=== PATIENT | male | born 1955 | race Caucasian/White ===

== ENCOUNTER → 2016-12-13 | Day surgery (SDC) | payer MEDICARE, OTHER ==
[~2016-12-13] VITALS: Ht 175.3 cm; Wt 83.9 kg
[~2016-12-13] MED LIST: /PANT40TA PO; ACETAMINOPHEN 325 MG TAB PO PRN; ASPI81CH PO; ASPI81TA85 PO; ATOR1TAB21 PO; AcetaZOLAMIDE 500 MG ER CAP PO ONE; BACT800T5 PO; BENA25CA PO; BISA5TAB64 PO; BSS with VANC/TOB/EPI for EYE CASES IR ONE; CIPR250T3 PO; CIPR25SS OR; COLA100C PO; COLA100C2 OR; COLL500C PO; EPOG1000 SQ; FLAG500T OR; HEALON DUET (HEALON 10MG/ML 0.55ML & HEALON ENDOCOAT 30MG/ML 0.85ML) As Ordered ONE; HEALON DUET (HEALON 10MG/ML 0.55ML & HEALON ENDOCOAT 30MG/ML 0.85ML) XX ONE; KEFL500C7 PO; KETOROLAC 0.5% OPHTH SOLN OD ONE; LEVO200T3 PO; LEVO200T4 PO; LEVO25TA5 PO; LIDOCAINE 1% SDV 5 ML VIAL As Ordered ONE; LIDOCAINE 1% SDV 5 ML VIAL XX ONE; LIDOCAINE 4% INJ 5 ML AMP OU ONE; LIDOCAINE W/EPINEPHRINE 1% 20ML VIAL XX ONE; LOSA100T36 PO; LOSA50TA20 PO; METAPKT PO; METR500T10 PO; MIDAZOLAM INJ 2 MG/2 ML VIAL (J2250) As Ordered ONE; MIDO2.5T PO; MOXIFLOXACIN IN BSS 0.25MG/0.25ML INTRACAMERAL INJ (OR EYE ONLY)(J2280) As Ordered ONE; MOXIFLOXACIN IN BSS 0.25MG/0.25ML INTRACAMERAL INJ (OR EYE ONLY)(J2280) ICAM ONE; MULTIVIT PO; Multivitamin PO; NEPRLIQ3 PO; NEUR100C PO; NORV5TAB; NORV5TAB PO; OFLOXACIN 0.3 % (OCUFLOX) OPTH SOL 5ML OD ONE; PERC7.5T3 PO; PERC7.5T8; PERCOCET PO; PHENYLEPHRINE 2.5% OPHTH SOL 2ML OD ONE; POVIDONE-IODINE 5% OPHTH PREP SOL 30ML As Ordered ONE; PRAV40TA2 PO; PREVASTATIN; PROPARACAINE 0.5% OPHTH SOL 15ML OD PRN; PROVASTATIN PO; RENA800T; RENA800T PO; RENV0.8P PO; RENV2.4P PO; REST30CA OR; REST30CA PO; SENO8.6T10 PO; SENSIPAR; SENSIPAR PO; SPS15SUS2 PO; Sensipar PO; TAGA200T PO; TRIAMCINOLONE PRES FR 40 MG/ML 1ML(TRIESENCE)(OR EYE ONLY)(J3300 PER 1MG) As Ordered ONE; TRIAMCINOLONE PRES FR 40 MG/ML 1ML(TRIESENCE)(OR EYE ONLY)(J3300 PER 1MG) IO ONE; TRIMETHOBENZAMIDE 300 MG CAP PO PRN; TROPICAMIDE 1% OPHTH SOLN 2 ML OD ONE; TYLE325T5 PO; VICO5TAB; VICO5TAB OR; VITA100037 PO; VITA100041 PO; VITA500C24 PO; VITA500T; VITA500T PO; VITA500T88 PO; VITAMIN D PO; ZANT150T; ZANT150T OR; [UNRECOGNIZED DRUG - OTHER] IV; epogen IV; fentaNYL 100 MCG/2 ML INJECTION (J3010) As Ordered ONE; iron IV; zemplar IV
[2016-12-13 09:35] VITALS: BP 146/74
== END | disposition home or self-care (01) ==
LOC: M SDC 07:47
PROVIDERS: ATTEND Ophthalmology
DX: H26.9 Unspecified cataract (principal); D63.1 Anemia in chronic kidney disease; I12.0 Hypertensive chronic kidney disease with stage 5 chronic kidney disease or end stage renal disease; N18.6 End stage renal disease; N03.9 Chronic nephritic syndrome with unspecified morphologic changes; E21.3 Hyperparathyroidism, unspecified; K21.9 Gastro-esophageal reflux disease without esophagitis; C02.9 Malignant neoplasm of tongue, unspecified; C73 Malignant neoplasm of thyroid gland; E03.9 Hypothyroidism, unspecified; T88.4XXD Failed or difficult intubation, subsequent encounter; E78.00 Pure hypercholesterolemia, unspecified; I34.1 Nonrheumatic mitral (valve) prolapse; G89.29 Other chronic pain; M12.9 Arthropathy, unspecified; M54.9 Dorsalgia, unspecified; Z88.8 Allergy status to other drugs, medicaments and biological substances; Z79.899 Other long term (current) drug therapy; Z94.0 Kidney transplant status; Z96.643 Presence of artificial hip joint, bilateral; Z92.21 Personal history of antineoplastic chemotherapy
CPT/HCPCS: 36415; 66984; 84132; J2250; J2280; J3010; J3300; V2632

== ENCOUNTER → 2017-01-01 | Day surgery (SDC) | payer MEDICARE, OTHER ==
[~2017-01-01] VITALS: Ht 175.3 cm; Wt 83.5 kg
[~2017-01-01] MED LIST changes: +ACETYLCHOLINE OPHTH SOLN 1% 2ML XX ONE; +BALANCED SALT IRRIGATION SOL 500ML GLASS BOTTLE (FOR OR EYE COMPOUND) IR ONE; +CYCLOPENTOLATE 2% OPHTH SOLN XX ONE; +D5W/0.2% SODIUM CHLORIDE 250 ML IV SCH; +EPINEPHrine INJ 1 MG/ML 1ML VIAL/AMP IR ONE; +FLORCAP6 PO; -KETOROLAC 0.5% OPHTH SOLN OD ONE; +KETOROLAC 0.5% OPHTH SOLN OS ONE; -LIDOCAINE W/EPINEPHRINE 1% 20ML VIAL XX ONE; -OFLOXACIN 0.3 % (OCUFLOX) OPTH SOL 5ML OD ONE; +OFLOXACIN 0.3 % (OCUFLOX) OPTH SOL 5ML XX ONE; -PHENYLEPHRINE 2.5% OPHTH SOL 2ML OD ONE; +PHENYLEPHRINE 2.5% OPHTH SOL 2ML XX ONE; -PROPARACAINE 0.5% OPHTH SOL 15ML OD PRN; +PROPARACAINE 0.5% OPHTH SOL 15ML OS PRN; +TOBRAMYCIN INJ 80 MG/2 ML VIAL (J3260) XX ONE; -TROPICAMIDE 1% OPHTH SOLN 2 ML OD ONE; +TROPICAMIDE 1% OPHTH SOLN 2 ML XX ONE; +VANCOMYCIN 1000 MG/20 ML VIAL (J3370) XX ONE
[2017-01-01 11:00] VITALS: BP 164/74
== END | disposition home or self-care (01) ==
LOC: M SDC 08:14
PROVIDERS: ATTEND Ophthalmology
DX: H26.9 Unspecified cataract (principal); D63.1 Anemia in chronic kidney disease; I12.0 Hypertensive chronic kidney disease with stage 5 chronic kidney disease or end stage renal disease; N18.6 End stage renal disease; N03.2 Chronic nephritic syndrome with diffuse membranous glomerulonephritis; T86.11 Kidney transplant rejection; E03.9 Hypothyroidism, unspecified; K21.9 Gastro-esophageal reflux disease without esophagitis; E21.3 Hyperparathyroidism, unspecified; Z94.0 Kidney transplant status; Z99.2 Dependence on renal dialysis; Z85.828 Personal history of other malignant neoplasm of skin; Z92.21 Personal history of antineoplastic chemotherapy; Z85.850 Personal history of malignant neoplasm of thyroid
CPT/HCPCS: 36415; 66984; 84132; J2250; J2280; J3010; J3260; J3300; J3370; V2632

== ENCOUNTER → 2017-04-10 | Outpatient (CLI) | payer MEDICARE, OTHER ==
[~2017-04-10] MED LIST changes: -ACETAMINOPHEN 325 MG TAB PO PRN; -ACETYLCHOLINE OPHTH SOLN 1% 2ML XX ONE; -AcetaZOLAMIDE 500 MG ER CAP PO ONE; -BALANCED SALT IRRIGATION SOL 500ML GLASS BOTTLE (FOR OR EYE COMPOUND) IR ONE; -BSS with VANC/TOB/EPI for EYE CASES IR ONE; -COLA100C PO; +COLA100C3 PO; -CYCLOPENTOLATE 2% OPHTH SOLN XX ONE; -D5W/0.2% SODIUM CHLORIDE 250 ML IV SCH; -EPINEPHrine INJ 1 MG/ML 1ML VIAL/AMP IR ONE; -HEALON DUET (HEALON 10MG/ML 0.55ML & HEALON ENDOCOAT 30MG/ML 0.85ML) As Ordered ONE; -HEALON DUET (HEALON 10MG/ML 0.55ML & HEALON ENDOCOAT 30MG/ML 0.85ML) XX ONE; -KETOROLAC 0.5% OPHTH SOLN OS ONE; -LIDOCAINE 1% SDV 5 ML VIAL As Ordered ONE; -LIDOCAINE 1% SDV 5 ML VIAL XX ONE; -LIDOCAINE 4% INJ 5 ML AMP OU ONE; -MIDAZOLAM INJ 2 MG/2 ML VIAL (J2250) As Ordered ONE; -MOXIFLOXACIN IN BSS 0.25MG/0.25ML INTRACAMERAL INJ (OR EYE ONLY)(J2280) As Ordered ONE; -MOXIFLOXACIN IN BSS 0.25MG/0.25ML INTRACAMERAL INJ (OR EYE ONLY)(J2280) ICAM ONE; -OFLOXACIN 0.3 % (OCUFLOX) OPTH SOL 5ML XX ONE; -PHENYLEPHRINE 2.5% OPHTH SOL 2ML XX ONE; -POVIDONE-IODINE 5% OPHTH PREP SOL 30ML As Ordered ONE; -PROPARACAINE 0.5% OPHTH SOL 15ML OS PRN; -TOBRAMYCIN INJ 80 MG/2 ML VIAL (J3260) XX ONE; -TRIAMCINOLONE PRES FR 40 MG/ML 1ML(TRIESENCE)(OR EYE ONLY)(J3300 PER 1MG) As Ordered ONE; -TRIAMCINOLONE PRES FR 40 MG/ML 1ML(TRIESENCE)(OR EYE ONLY)(J3300 PER 1MG) IO ONE; -TRIMETHOBENZAMIDE 300 MG CAP PO PRN; -TROPICAMIDE 1% OPHTH SOLN 2 ML XX ONE; -VANCOMYCIN 1000 MG/20 ML VIAL (J3370) XX ONE; -fentaNYL 100 MCG/2 ML INJECTION (J3010) As Ordered ONE
--- NOTE | 2017-04-10 12:10 | REP ---
CHEST, TWO VIEWS: Two views of the chest are performed and compared t o a prior study of 06/16/2014. There is cardiomegaly. There is vascular congestion. . Small bilateral effusions and some minor bibasilar atelectasis/infiltrate are noted. There is calcification of the thoracic aorta. Nodular opacities in the right apex have been seen on multiple prior exams. There are degenerative changes of the spine. Mild compression deformity of a few mid to lower thoracic vertebral bodies are stable. IMPRESSION: Cardiomegaly and vascular congestion with increased interstitial markings suggests congestive heart failure and interstitial edema. In addition, there are mild patchy densities in each lung base representing mild atelectasis/infiltrate. There are small effusions. Signed by Tim Person MD 04/10/2017 12:54 P
== END ==
LOC: M SMT 10:26
PROVIDERS: ATTEND Internal Medicine Nephrology
DX: R91.8 Other nonspecific abnormal finding of lung field (principal); I51.7 Cardiomegaly; J90 Pleural effusion, not elsewhere classified

== ENCOUNTER → 2017-05-03 | Outpatient (CLI) | payer MEDICARE, OTHER ==
[~2017-05-03] MED LIST changes: -COLA100C3 PO; +COLA100C5 PO; +KEFL500C17 PO; -KEFL500C7 PO; +PERC7.5T11 PO; -PERC7.5T3 PO; -VITA100037 PO; +VITA100067 PO
--- NOTE | 2017-05-03 11:52 | REP ---
Clinical: Heart failure. Technique: PA and lateral. Comparison: 04/10/2017. Findings: Mediastinum and cardiac silhouette are stable. Lung [place] demonstrate diffuse chronic interstitial changes and fibrosis/scarring similar to prior examination. Previously noted left lower lobe infiltrate has resolved. No obvious, new, acute infiltrate is appreciated. No effusion. No pneumothorax. Skeletal structures stable. Impression: 1. Diffuse chronic interstitial changes with fibrosis and scarring as well as suspected right apical pleural plaquing. 2. Previously noted left lower lobe infiltrate resolved. Signed by Marcos Delacruz MD 05/03/2017 11:43 A
== END ==
LOC: M SMT 10:44
PROVIDERS: ATTEND Internal Medicine Nephrology
DX: I50.9 Heart failure, unspecified (principal)

== ENCOUNTER → 2017-07-13 | Outpatient (CLI) | payer MEDICARE, OTHER ==
[~2017-07-13] MED LIST changes: +CYCL10TA PO; +PRAV10TA4 PO; +WHEEMIS3 XX
--- NOTE | 2017-07-13 11:49 | REP ---
Clinical: Cough. Technique: PA and lateral. Comparison: 05/03/2017. Findings: Mediastinum and cardiac silhouette are stable with mild cardiomegaly and findings to suggest calcified lymph nodes along with atherosclerotic changes to the aorta. Chronic changes are appreciated with superimposed bibasilar infiltrate/atelectasis and moderate pleural effusions. Skeletal structures are stable. Impression: Superimposed bibasilar infiltrate/atelectasis and moderate pleural effusions. Cannot exclude interstitial edema versus multifocal pneumonia. Signed by Marcos Delacruz MD 07/13/2017 11:41 A
== END ==
LOC: M SMT 10:33
PROVIDERS: ATTEND Internal Medicine Nephrology
DX: J90 Pleural effusion, not elsewhere classified (principal)

== ENCOUNTER → 2017-08-24 | Outpatient (CLI) | payer MEDICARE, OTHER ==
[2017-08-24 14:02] LABS: MEAN CORPUSCULAR HEMOGLOBIN 31.3 pg (27.0-33.0); MEAN CORPUSCULAR HGB CONC 31.4 g/dl (32.0-36.5); MEAN CORPUSCULAR VOLUME 99.7 fl (80.0-96.0); PLATELET COUNT, AUTOMATED 281 10^3/uL (150-450); RED CELL DISTRIBUTION WIDTH 16.3 % (11.5-14.5); WHITE BLOOD COUNT 5.2 10^3/uL (4.0-10.0)
== END ==
LOC: M SMT 11:19
PROVIDERS: ATTEND Internal Medicine Cardiovascular Disease
DX: I25.10 Atherosclerotic heart disease of native coronary artery without angina pectoris (principal); R94.39 Abnormal result of other cardiovascular function study

== ENCOUNTER 2017-09-13 09:35 | Emergency (ER) | payer MEDICARE, OTHER ==
[~2017-09-13] VITALS: Ht 172.7 cm; Wt 74.1 kg
[~2017-09-13 09:35] MED LIST changes: -CYCL10TA PO; -PRAV10TA4 PO; -WHEEMIS3 XX
[2017-09-13] MEDS ORDERED: PRAV10TA4 PO (09:49)
[2017-09-13 10:40] LABS: BASO % 0.2 % (0.0-1.0); EOS # 0.1 10^3/uL (0.0-0.50); EOS % 0.8 % (0.0-3.0); IMMATURE GRANULOCYTE % 0.5 % (0-0); LYMPH % 3.5 % (24.0-44.0); MEAN CORPUSCULAR HEMOGLOBIN 30.8 pg (27.0-33.0); MEAN CORPUSCULAR HGB CONC 31.2 g/dl (32.0-36.5); MEAN CORPUSCULAR VOLUME 98.5 fl (80.0-96.0); MONO # 0.4 10^3/uL (0.0-0.8); MONO % 5.8 % (0.0-5.0); NEUTROPHILS # 5.9 10^3/uL (1.8-7.7); NEUTROPHILS % 89.2 % (36.0-66.0); PLATELET COUNT, AUTOMATED 217 10^3/uL (150-450); RED CELL DISTRIBUTION WIDTH 16.1 % (11.5-14.5); WHITE BLOOD COUNT 6.6 10^3/uL (4.0-10.0)
--- NOTE | 2017-09-13 11:11 | REP ---
Right lower extremity duplex deep vein ultrasound: The deep veins demonstrate normal compression, normal Doppler color flow and normal Doppler waveforms with respiration and augmentation from the popliteal vein to the common femoral vein. Impression: There is no deep vein thrombus in the right lower extremity. Signed by Tim Montilla MD 09/13/2017 11:04 A
[2017-09-13 11:14] LABS: ADD MANUAL DIFFER NO; DIFF SLIDE NUMBER 192; LYMPH # 0.2 10^3/uL (1.5-4.5); POSITIVE DIFF POS FLAG
[2017-09-13 11:19] LABS: ALBUMIN 2.9 GM/DL (3.2-5.2); ALBUMIN/GLOBULIN RATIO 0.67 (1.00-1.93); BILIRUBIN,TOTAL 0.3 MG/DL (0.2-1.0); CALCIUM LEVEL 8.9 MG/DL (8.8-10.2); CREATININE FOR GFR 6.72 MG/DL (0.70-1.30); TOTAL PROTEIN 7.2 GM/DL (6.4-8.2)
[2017-09-13 11:33] LABS: POTASSIUM SERUM 5.6 MEQ/L (3.5-5.1)
[2017-09-13] MEDS ORDERED: CYCL10TA PO (12:33)
[2017-09-13] MEDS ORDERED: WHEEMIS3 XX ×5 (12:36→13:14)
[2017-09-13] MEDS ORDERED: methylPREDNISolone INJ 125 MG/2 ML VIAL (J2930) IM ONE (12:45)
[2017-09-13 13:26] VITALS: BP 126/68
== END 2017-09-13 13:27 | disposition home or self-care (01) ==
LOC: M ED 09:35
DX: M54.16 Radiculopathy, lumbar region (principal); I25.9 Chronic ischemic heart disease, unspecified; Z99.2 Dependence on renal dialysis; Z94.0 Kidney transplant status; Z79.899 Other long term (current) drug therapy; Z79.82 Long term (current) use of aspirin; Z99.3 Dependence on wheelchair; Z88.8 Allergy status to other drugs, medicaments and biological substances; Z87.891 Personal history of nicotine dependence
CPT/HCPCS: 36415; 80053; 85025; 93971; 96372; 99283; J2930

== ENCOUNTER 2017-12-03 14:00 | Emergency (ER) | payer MEDICARE, OTHER | END 2017-12-03 17:30 | disposition short-term general hospital (02) | LOC: M ED 14:00 | DX: T84.51XA Infection and inflammatory reaction due to internal right hip prosthesis, initial encounter (principal); Y92.9 Unspecified place or not applicable; Y93.9 Activity, unspecified; N18.6 End stage renal disease; Z99.2 Dependence on renal dialysis; Z85.810 Personal history of malignant neoplasm of tongue; M19.011 Primary osteoarthritis, right shoulder; Z86.19 Personal history of other infectious and parasitic diseases; K21.9 Gastro-esophageal reflux disease without esophagitis; Z79.82 Long term (current) use of aspirin; Z79.899 Other long term (current) drug therapy; Z88.8 Allergy status to other drugs, medicaments and biological substances | CPT/HCPCS: 99284 ==

== ENCOUNTER → 2017-12-24 | Outpatient (REF) | payer MEDICARE, OTHER ==
[2017-12-24 18:33] LABS: ALBUMIN 2.4 GM/DL (3.2-5.2); ALBUMIN/GLOBULIN RATIO 0.62 (1.00-1.93); ALKALINE PHOSPHATASE 230 U/L (45-117); ALT/SGPT 8 U/L (12-78); ANION GAP 9 MEQ/L (8-16); AST/SGOT 29 U/L (7-37); BILIRUBIN,TOTAL 0.2 MG/DL (0.2-1.0); BLOOD UREA NITROGEN 59 MG/DL (7-18); C REACTIVE PROTEIN QUANTITATIV 6.54 MG/DL (0.00-0.30); CARBON DIOXIDE LEVEL 30 MEQ/L (21-32); CHLORIDE LEVEL 96 MEQ/L (98-107); CREATININE FOR GFR 4.24 MG/DL (0.70-1.30); GLOMERULAR FILTRATION RATE 15.3 (>49); GLUCOSE, FASTING 96 MG/DL (70-100); POTASSIUM SERUM 4.9 MEQ/L (3.5-5.1); SODIUM LEVEL 135 MEQ/L (136-145); TOTAL PROTEIN 6.3 GM/DL (6.4-8.2)
[2017-12-24 19:01] LABS: BASO % 0.3 % (0.0-1.0); EOS # 0.1 10^3/uL (0.0-0.50); EOS % 2.2 % (0.0-3.0); HEMATOCRIT 23.4 % (42.0-52.0); HEMOGLOBIN 7.4 g/dl (14.0-18.0); IMMATURE GRANULOCYTE % 0.5 % (0-3.0); LYMPH # 0.4 10^3/uL (1.5-4.5); LYMPH % 11.3 % (24.0-44.0); MEAN CORPUSCULAR HEMOGLOBIN 32.5 pg (27.0-33.0); MEAN CORPUSCULAR HGB CONC 31.6 g/dl (32.0-36.5); MEAN CORPUSCULAR VOLUME 102.6 fl (80.0-96.0); MONO # 0.2 10^3/uL (0.0-0.8); MONO % 4.3 % (0.0-5.0); NEUTROPHILS % 81.4 % (36.0-66.0); PLATELET COUNT, AUTOMATED 217 10^3/uL (150-450); RED BLOOD COUNT 2.28 10^6/uL (4.30-6.10); RED CELL DISTRIBUTION WIDTH 17.5 % (11.5-14.5); WHITE BLOOD COUNT 3.7 10^3/uL (4.0-10.0)
[2017-12-24 19:56] LABS: ERYTHROCYTE SEDIMENTATION RATE > 140 mm/hr (0-20)
== END ==
LOC: M LAB REF 17:14
DX: Z51.81 Encounter for therapeutic drug level monitoring (principal); T84.51XD Infection and inflammatory reaction due to internal right hip prosthesis, subsequent encounter; A49.01 Methicillin susceptible Staphylococcus aureus infection, unspecified site; Z79.2 Long term (current) use of antibiotics
CPT/HCPCS: 80053

== ENCOUNTER → 2018-01-14 | Outpatient (REF) | payer MEDICARE, OTHER ==
[2018-01-14 14:48] LABS: BASO % 0.5 % (0.0-1.0); HEMATOCRIT 28.8 % (42.0-52.0); HEMOGLOBIN 9.3 g/dl (14.0-18.0); IMMATURE GRANULOCYTE % 0.3 % (0-3.0); LYMPH # 0.3 10^3/uL (1.5-4.5); LYMPH % 6.8 % (24.0-44.0); MEAN CORPUSCULAR HEMOGLOBIN 33.7 pg (27.0-33.0); MEAN CORPUSCULAR HGB CONC 32.3 g/dl (32.0-36.5); MEAN CORPUSCULAR VOLUME 104.3 fl (80.0-96.0); MONO # 0.2 10^3/uL (0.0-0.8); MONO % 5.5 % (0.0-5.0); NEUTROPHILS # 3.4 10^3/uL (1.8-7.7); NEUTROPHILS % 85.9 % (36.0-66.0); PLATELET COUNT, AUTOMATED 178 10^3/uL (150-450); RED BLOOD COUNT 2.76 10^6/uL (4.30-6.10); RED CELL DISTRIBUTION WIDTH 17.6 % (11.5-14.5)
[2018-01-14 15:10] LABS: ALBUMIN/GLOBULIN RATIO 0.73 (1.00-1.93); ALKALINE PHOSPHATASE 263 U/L (45-117); ALT/SGPT 27 U/L (12-78); ANION GAP 8 MEQ/L (8-16); AST/SGOT 36 U/L (7-37); BILIRUBIN,TOTAL 0.3 MG/DL (0.2-1.0); BLOOD UREA NITROGEN 25 MG/DL (7-18); C REACTIVE PROTEIN QUANTITATIV 3.43 MG/DL (0.00-0.30); CALCIUM LEVEL 8.4 MG/DL (8.8-10.2); CARBON DIOXIDE LEVEL 31 MEQ/L (21-32); CHLORIDE LEVEL 100 MEQ/L (98-107); CREATININE FOR GFR 1.89 MG/DL (0.70-1.30); GLOMERULAR FILTRATION RATE 38.9 (>49); GLUCOSE, FASTING 100 MG/DL (70-100); POTASSIUM SERUM 3.8 MEQ/L (3.5-5.1); SODIUM LEVEL 139 MEQ/L (136-145); TOTAL PROTEIN 7.1 GM/DL (6.4-8.2)
[2018-01-14 15:47] LABS: POSITIVE DIFF POS FLAG
[2018-01-14 15:48] LABS: ERYTHROCYTE SEDIMENTATION RATE 81 mm/hr (0-20)
== END ==
LOC: M LAB REF 14:26
DX: T84.51XD Infection and inflammatory reaction due to internal right hip prosthesis, subsequent encounter (principal); A49.01 Methicillin susceptible Staphylococcus aureus infection, unspecified site; Z79.2 Long term (current) use of antibiotics
CPT/HCPCS: 80053

== ENCOUNTER → 2018-02-25 | Outpatient (REF) | payer MEDICARE, OTHER ==
[2018-02-25 15:24] LABS: BASO % 0.6 % (0.0-1.0); EOS # 0.1 10^3/uL (0.0-0.50); EOS % 2.1 % (0.0-3.0); HEMATOCRIT 30.8 % (42.0-52.0); HEMOGLOBIN 9.7 g/dl (13.5-17.5); IMMATURE GRANULOCYTE % 0.3 % (0-3.0); LYMPH # 0.4 10^3/uL (1.5-4.5); MEAN CORPUSCULAR HEMOGLOBIN 31.5 pg (27.0-33.0); MEAN CORPUSCULAR HGB CONC 31.5 g/dl (32.0-36.5); MONO # 0.2 10^3/uL (0.0-0.8); MONO % 6.8 % (0.0-5.0); NEUTROPHILS # 2.7 10^3/uL (1.8-7.7); NEUTROPHILS % 79.2 % (36.0-66.0); PLATELET COUNT, AUTOMATED 176 10^3/uL (150-450); RED BLOOD COUNT 3.08 10^6/uL (4.30-6.10); RED CELL DISTRIBUTION WIDTH 15.7 % (11.5-14.5); WHITE BLOOD COUNT 3.4 10^3/uL (4.0-10.0)
[2018-02-25 15:27] LABS: ALBUMIN 2.7 GM/DL (3.2-5.2); ALBUMIN/GLOBULIN RATIO 0.68 (1.00-1.93); ALKALINE PHOSPHATASE 200 U/L (45-117); ALT/SGPT 30 U/L (12-78); ANION GAP 11 MEQ/L (8-16); AST/SGOT 28 U/L (7-37); BILIRUBIN,TOTAL 0.3 MG/DL (0.2-1.0); BLOOD UREA NITROGEN 83 MG/DL (7-18); C REACTIVE PROTEIN QUANTITATIV 4.13 MG/DL (0.00-0.30); CALCIUM LEVEL 7.8 MG/DL (8.8-10.2); CARBON DIOXIDE LEVEL 28 MEQ/L (21-32); CHLORIDE LEVEL 93 MEQ/L (98-107); CREATININE FOR GFR 4.86 MG/DL (0.70-1.30); GLOMERULAR FILTRATION RATE 13.1 (>49); GLUCOSE, FASTING 88 MG/DL (70-100); SODIUM LEVEL 132 MEQ/L (136-145); TOTAL PROTEIN 6.7 GM/DL (6.4-8.2)
[2018-02-25 16:33] LABS: ERYTHROCYTE SEDIMENTATION RATE 80 mm/hr (0-20)
== END ==
LOC: M LAB REF 14:59
DX: Z79.2 Long term (current) use of antibiotics (principal); A49.01 Methicillin susceptible Staphylococcus aureus infection, unspecified site; T84.51XD Infection and inflammatory reaction due to internal right hip prosthesis, subsequent encounter
CPT/HCPCS: 80053

== ENCOUNTER → 2018-03-15 | Outpatient (CLI) | payer MEDICARE, OTHER ==
[2018-03-15 17:16] LABS: BASO % 0.2 % (0.0-1.0); EOS # 0.1 10^3/uL (0.0-0.50); EOS % 1.4 % (0.0-3.0); HEMATOCRIT 33.4 % (42.0-52.0); HEMOGLOBIN 10.3 g/dl (13.5-17.5); IMMATURE GRANULOCYTE % 0.5 % (0-3.0); LYMPH # 0.5 10^3/uL (1.5-4.5); LYMPH % 9.2 % (24.0-44.0); MEAN CORPUSCULAR HEMOGLOBIN 31.7 pg (27.0-33.0); MEAN CORPUSCULAR HGB CONC 30.8 g/dl (32.0-36.5); MEAN CORPUSCULAR VOLUME 102.8 fl (80.0-96.0); MONO # 0.3 10^3/uL (0.0-0.8); MONO % 4.5 % (0.0-5.0); NEUTROPHILS # 4.9 10^3/uL (1.8-7.7); NEUTROPHILS % 84.2 % (36.0-66.0); PLATELET COUNT, AUTOMATED 177 10^3/uL (150-450); RED BLOOD COUNT 3.25 10^6/uL (4.30-6.10); RED CELL DISTRIBUTION WIDTH 15.4 % (11.5-14.5); WHITE BLOOD COUNT 5.8 10^3/uL (4.0-10.0)
[2018-03-15 17:58] LABS: ALBUMIN 3.5 GM/DL (3.2-5.2); ALBUMIN/GLOBULIN RATIO 0.83 (1.00-1.93); ALKALINE PHOSPHATASE 205 U/L (45-117); ALT/SGPT 23 U/L (12-78); ANION GAP 10 MEQ/L (8-16); AST/SGOT 31 U/L (7-37); BILIRUBIN,TOTAL 0.4 MG/DL (0.2-1.0); BLOOD UREA NITROGEN 65 MG/DL (7-18); C REACTIVE PROTEIN QUANTITATIV 2.39 MG/DL (0.00-0.30); CARBON DIOXIDE LEVEL 31 MEQ/L (21-32); CHLORIDE LEVEL 95 MEQ/L (98-107); CREATININE FOR GFR 3.93 MG/DL (0.70-1.30); GLOMERULAR FILTRATION RATE 16.7 (>49); GLUCOSE, FASTING 94 MG/DL (70-100); SODIUM LEVEL 136 MEQ/L (136-145); TOTAL PROTEIN 7.7 GM/DL (6.4-8.2)
[2018-03-15 18:01] LABS: ERYTHROCYTE SEDIMENTATION RATE 67 mm/hr (0-20)
== END ==
LOC: M SMT 11:52
DX: T84.59XS Infection and inflammatory reaction due to other internal joint prosthesis, sequela (principal); Z96.649 Presence of unspecified artificial hip joint
CPT/HCPCS: 80053

== ENCOUNTER 2018-06-01 07:04 | Inpatient (IN) | payer MEDICARE, OTHER ==
[2018-06-01] MEDS ORDERED: NS 500 ML IV (07:15)
[2018-06-01] MEDS: NS 250 ML IV (07:30)
[2018-06-01 07:58] LABS: EOS # 0.1 10^3/uL (0.0-0.50); EOS % 1.5 % (0.0-3.0); HEMATOCRIT 33.7 % (42.0-52.0); HEMOGLOBIN 11.1 g/dl (13.5-17.5); IMMATURE GRANULOCYTE % 0.3 % (0-3.0); LYMPH # 0.5 10^3/uL (1.5-4.5); LYMPH % 8.7 % (24.0-44.0); MEAN CORPUSCULAR HEMOGLOBIN 31.4 pg (27.0-33.0); MEAN CORPUSCULAR HGB CONC 32.9 g/dl (32.0-36.5); MEAN CORPUSCULAR VOLUME 95.2 fl (80.0-96.0); MONO # 0.2 10^3/uL (0.0-0.8); MONO % 2.7 % (0.0-5.0); NEUTROPHILS # 5.2 10^3/uL (1.8-7.7); NEUTROPHILS % 86.8 % (36.0-66.0); PLATELET COUNT, AUTOMATED 116 10^3/uL (150-450); RED BLOOD COUNT 3.54 10^6/uL (4.30-6.10); RED CELL DISTRIBUTION WIDTH 15.6 % (11.5-14.5)
[2018-06-01] MEDS: ONDANSETRON 4MG/2ML VIAL (J2405) IV ×2 (08:01→20:53)
[2018-06-01] MEDS: MORPHINE 4 MG/ML 1ML VIAL/SYRINGE (J2270) IV (08:01)
[2018-06-01 08:13] LABS: PARTIAL THROMBOPLASTIN TIME 53.3 SECONDS (25.4-37.6)
[2018-06-01 08:16] LABS: INR 1.04; PROTHROMBIN TIME 13.7 SECONDS (12.1-14.4)
[2018-06-01 08:17] LABS: ALBUMIN 3.5 GM/DL (3.2-5.2); ALBUMIN/GLOBULIN RATIO 0.78 (1.00-1.93); ALKALINE PHOSPHATASE 211 U/L (45-117); ALT/SGPT 83 U/L (12-78); AMYLASE 39 U/L (25-115); ANION GAP 15 MEQ/L (8-16); AST/SGOT 52 U/L (7-37); BILIRUBIN,DIRECT 0.1 MG/DL (0.0-0.2); BILIRUBIN,TOTAL 0.4 MG/DL (0.2-1.0); BLOOD UREA NITROGEN 108 MG/DL (7-18); CALCIUM LEVEL 8.5 MG/DL (8.8-10.2); CARBON DIOXIDE LEVEL 27 MEQ/L (21-32); CHLORIDE LEVEL 93 MEQ/L (98-107); CK-MB VALUE MASS 2.4 NG/ML (<3.6); CPK CREATINE PHOSPHOKINASE 73 U/L (39-308); CREATININE FOR GFR 6.21 MG/DL (0.70-1.30); GLOMERULAR FILTRATION RATE 9.8 (>49); GLUCOSE, FASTING 199 MG/DL (70-100); LIPASE 176 U/L (73-393); MB/CK RELATIVE INDEX 3.28 (< OR =4); POTASSIUM SERUM 3.9 MEQ/L (3.5-5.1); SODIUM LEVEL 135 MEQ/L (136-145); TROPONIN I < 0.02 NG/ML (< 0.10)
[2018-06-01 08:41] LABS: LACTIC ACID SEPSIS PROTOCOL 1.8 MMOL/L (0.4-2.0)
[2018-06-01] MEDS: PIPERACILLIN/TAZOBACTAM SOD 4.5 GM in D5W MINI-BAG PLUS 50 ML IV (08:54)
[2018-06-01] MEDS ORDERED: BISACODYL 5 MG TAB PO (11:30)
[2018-06-01] MEDS ORDERED: MORPHINE 4 MG/ML 1ML VIAL/SYRINGE (J2270) IV (11:30)
[2018-06-01] MEDS ORDERED: GLUCAGON FOR INJ 1 MG VIAL (J1610) SC (12:00)
[2018-06-01] MEDS ORDERED: DEXTROSE 50% 50 ML SYRINGE IV (12:00)
[2018-06-01] MEDS ORDERED: GLUCOSE 4 GM CHEW TABLET PO (12:00)
[2018-06-01] MEDS: D5W/0.45% SODIUM CHLORIDE 1,000 ML IV (12:52)
[2018-06-01] MEDS: VANCOMYCIN HCL 1,000 MG, VIAL MATE ADAPTER 1 EACH in D5W 250 ML IV (13:50)
[2018-06-01 14:02] LABS: BEDSIDE GLUCOSE 104 MG/DL (80-115)
[2018-06-01 15:00] LABS: BASO % 0.2 % (0.0-1.0); EOS % 0.6 % (0.0-3.0); HEMATOCRIT 34.8 % (42.0-52.0); HEMOGLOBIN 11.3 g/dl (13.5-17.5); IMMATURE GRANULOCYTE % 0.4 % (0-3.0); LYMPH # 0.3 10^3/uL (1.5-4.5); MEAN CORPUSCULAR HEMOGLOBIN 30.8 pg (27.0-33.0); MEAN CORPUSCULAR HGB CONC 32.5 g/dl (32.0-36.5); MEAN CORPUSCULAR VOLUME 94.8 fl (80.0-96.0); MONO # 0.2 10^3/uL (0.0-0.8); MONO % 4.4 % (0.0-5.0); NEUTROPHILS # 4.4 10^3/uL (1.8-7.7); NEUTROPHILS % 88.6 % (36.0-66.0); PLATELET COUNT, AUTOMATED 111 10^3/uL (150-450); RED BLOOD COUNT 3.67 10^6/uL (4.30-6.10); RED CELL DISTRIBUTION WIDTH 15.4 % (11.5-14.5)
[2018-06-01 15:15] LABS: ANION GAP 10 MEQ/L (8-16); BLOOD UREA NITROGEN 120 MG/DL (7-18); CALCIUM LEVEL 8.3 MG/DL (8.8-10.2); CARBON DIOXIDE LEVEL 29 MEQ/L (21-32); CHLORIDE LEVEL 93 MEQ/L (98-107); CREATININE FOR GFR 6.64 MG/DL (0.70-1.30); GLOMERULAR FILTRATION RATE 9.1 (>49); GLUCOSE, FASTING 133 MG/DL (70-100); POTASSIUM SERUM 5.3 MEQ/L (3.5-5.1); SODIUM LEVEL 132 MEQ/L (136-145)
[2018-06-01 15:26] LABS: POSITIVE DIFF POS FLAG
[2018-06-01 15:27] LABS: LYMPH % 5.8 % (24.0-44.0)
[2018-06-01] MEDS: **VANCO AFTER HD** MISC XX (15:36)
[2018-06-01] MEDS: MEROPENEM INJ 500 MG in APPROPRIATE DILUENT 1 EA IV (17:30)
[2018-06-01 18:11] LABS: BEDSIDE GLUCOSE 87 MG/DL (80-115)
[2018-06-01] MEDS: PERCOCET 5MG/325MG TAB PO (23:34)
[2018-06-01 23:57] LABS: BEDSIDE GLUCOSE 102 MG/DL (80-115)
[2018-06-02 04:34] LABS: HEMATOCRIT 31.5 % (42.0-52.0); HEMOGLOBIN 10.3 g/dl (13.5-17.5); MEAN CORPUSCULAR HEMOGLOBIN 31.2 pg (27.0-33.0); MEAN CORPUSCULAR HGB CONC 32.7 g/dl (32.0-36.5); MEAN CORPUSCULAR VOLUME 95.5 fl (80.0-96.0); PLATELET COUNT, AUTOMATED 107 10^3/uL (150-450); RED CELL DISTRIBUTION WIDTH 15.7 % (11.5-14.5); WHITE BLOOD COUNT 4.8 10^3/uL (4.0-10.0)
[2018-06-02 04:51] LABS: ALBUMIN 2.9 GM/DL (3.2-5.2); ALBUMIN/GLOBULIN RATIO 0.73 (1.00-1.93); ALKALINE PHOSPHATASE 184 U/L (45-117); ALT/SGPT 69 U/L (12-78); ANION GAP 14 MEQ/L (8-16); AST/SGOT 41 U/L (7-37); BILIRUBIN,TOTAL 0.5 MG/DL (0.2-1.0); BLOOD UREA NITROGEN 127 MG/DL (7-18); CARBON DIOXIDE LEVEL 26 MEQ/L (21-32); CHLORIDE LEVEL 94 MEQ/L (98-107); GLUCOSE, FASTING 95 MG/DL (70-100); MAGNESIUM LEVEL 3.4 MG/DL (1.8-2.4); POTASSIUM SERUM 4.9 MEQ/L (3.5-5.1); SODIUM LEVEL 134 MEQ/L (136-145); TOTAL PROTEIN 6.9 GM/DL (6.4-8.2)
[2018-06-02] MEDS: PANTOPRAZOLE 40MG INJ (PROTONIX) (C9113) IV (08:32)
[2018-06-02] MEDS: VANCOMYCIN HCL 500 MG in D5W MINI-BAG PLUS 100 ML IV (08:32)
[2018-06-02] MEDS: LEVOTHYROXINE 100 MCG (0.1MG) VIAL IV (08:32)
[2018-06-02] MEDS: D5W/0.45% SODIUM CHLORIDE 1,000 ML IV (08:32)
[2018-06-02] MEDS: **VANCO AFTER HD** MISC XX (14:18)
[2018-06-02] MEDS: MEROPENEM INJ 500 MG in APPROPRIATE DILUENT 1 EA IV (17:29)
[2018-06-02 23:57] LABS: BEDSIDE GLUCOSE 129 MG/DL (80-115)
[2018-06-03 04:33] LABS: HEMATOCRIT 30.9 % (42.0-52.0); HEMOGLOBIN 10.3 g/dl (13.5-17.5); MEAN CORPUSCULAR HEMOGLOBIN 31.5 pg (27.0-33.0); MEAN CORPUSCULAR HGB CONC 33.3 g/dl (32.0-36.5); MEAN CORPUSCULAR VOLUME 94.5 fl (80.0-96.0); PLATELET COUNT, AUTOMATED 107 10^3/uL (150-450); RED BLOOD COUNT 3.27 10^6/uL (4.30-6.10); RED CELL DISTRIBUTION WIDTH 15.8 % (11.5-14.5); WHITE BLOOD COUNT 4.6 10^3/uL (4.0-10.0)
[2018-06-03 04:52] LABS: ALBUMIN 2.9 GM/DL (3.2-5.2); ALBUMIN/GLOBULIN RATIO 0.83 (1.00-1.93); ALKALINE PHOSPHATASE 166 U/L (45-117); ALT/SGPT 63 U/L (12-78); ANION GAP 14 MEQ/L (8-16); AST/SGOT 35 U/L (7-37); BILIRUBIN,TOTAL 0.3 MG/DL (0.2-1.0); BLOOD UREA NITROGEN 162 MG/DL (7-18); CARBON DIOXIDE LEVEL 26 MEQ/L (21-32); CHLORIDE LEVEL 94 MEQ/L (98-107); GLOMERULAR FILTRATION RATE 6.6 (>49); GLUCOSE, FASTING 85 MG/DL (70-100); MAGNESIUM LEVEL 3.5 MG/DL (1.8-2.4); SODIUM LEVEL 134 MEQ/L (136-145); TOTAL PROTEIN 6.4 GM/DL (6.4-8.2); VANCOMYCIN RANDOM 18.8 UG/ML
[2018-06-03 04:54] LABS: CREATININE FOR GFR 8.74 MG/DL (0.70-1.30)
[2018-06-03 04:55] LABS: POTASSIUM SERUM 5.6 MEQ/L (3.5-5.1)
[2018-06-03] MEDS: PANTOPRAZOLE 40MG INJ (PROTONIX) (C9113) IV (08:34)
[2018-06-03] MEDS: LEVOTHYROXINE 100 MCG (0.1MG) VIAL IV (08:34)
[2018-06-03] MEDS ORDERED: NYSTATIN 100,000 UNITS/GM TOPICAL PWD 15 GM TOP (09:00)
[2018-06-03] MEDS: HEPARIN 1,000 UNITS/ML 10ML VIAL (FOR RADIOLOGY& DIALYSIS ONLY) IV (11:15)
[2018-06-03] MEDS: **VANCO AFTER HD** MISC XX (16:00)
[2018-06-03] MEDS: VANCOMYCIN HCL 1,000 MG, VIAL MATE ADAPTER 1 EACH in D5W 250 ML IV (16:44)
[2018-06-03 18:16] LABS: BEDSIDE GLUCOSE 144 MG/DL (80-115)
[2018-06-03] MEDS: MEROPENEM INJ 500 MG in APPROPRIATE DILUENT 1 EA IV (18:23)
[2018-06-03 23:42] LABS: BEDSIDE GLUCOSE 97 MG/DL (80-115)
[2018-06-04] MEDS: PERCOCET 5MG/325MG TAB PO (04:15)
[2018-06-04 06:42] LABS: HEMATOCRIT 29.2 % (42.0-52.0); HEMOGLOBIN 9.9 g/dl (13.5-17.5); MEAN CORPUSCULAR HEMOGLOBIN 31.7 pg (27.0-33.0); MEAN CORPUSCULAR HGB CONC 33.9 g/dl (32.0-36.5); MEAN CORPUSCULAR VOLUME 93.6 fl (80.0-96.0); PLATELET COUNT, AUTOMATED 102 10^3/uL (150-450); RED BLOOD COUNT 3.12 10^6/uL (4.30-6.10); RED CELL DISTRIBUTION WIDTH 15.8 % (11.5-14.5); WHITE BLOOD COUNT 3.2 10^3/uL (4.0-10.0)
[2018-06-04 06:43] LABS: BEDSIDE GLUCOSE 99 MG/DL (80-115)
[2018-06-04 07:12] LABS: ALBUMIN 2.9 GM/DL (3.2-5.2); ALBUMIN/GLOBULIN RATIO 0.85 (1.00-1.93); ALKALINE PHOSPHATASE 182 U/L (45-117); ALT/SGPT 63 U/L (12-78); ANION GAP 12 MEQ/L (8-16); AST/SGOT 41 U/L (7-37); BILIRUBIN,TOTAL 0.4 MG/DL (0.2-1.0); BLOOD UREA NITROGEN 70 MG/DL (7-18); CALCIUM LEVEL 8.1 MG/DL (8.8-10.2); CARBON DIOXIDE LEVEL 29 MEQ/L (21-32); CHLORIDE LEVEL 97 MEQ/L (98-107); CREATININE FOR GFR 5.13 MG/DL (0.70-1.30); GLOMERULAR FILTRATION RATE 12.3 (>49); GLUCOSE, FASTING 90 MG/DL (70-100); MAGNESIUM LEVEL 2.8 MG/DL (1.8-2.4); POTASSIUM SERUM 4.4 MEQ/L (3.5-5.1); SODIUM LEVEL 138 MEQ/L (136-145); TOTAL PROTEIN 6.3 GM/DL (6.4-8.2)
[2018-06-04] MEDS: PANTOPRAZOLE 40MG INJ (PROTONIX) (C9113) IV (07:32)
[2018-06-04] MEDS: ACETAMINOPHEN TAB 650MG DOSE (2X325MG) PO (07:33)
[2018-06-04] MEDS: LEVOTHYROXINE 100 MCG (0.1MG) VIAL IV (10:05)
[2018-06-04 12:08] LABS: BEDSIDE GLUCOSE 88 MG/DL (80-115)
[2018-06-04 12:46] LABS: PHOSPHORUS LEVEL 4.8 MG/DL (2.5-4.9)
[2018-06-04] MEDS: CEFDINIR 300 MG CAP (OMNICEF) PO (13:14)
[2018-06-05] MEDS ORDERED: LEVOTHYROXINE 100MCG TABLET (0.1MG) PO (06:00)
[2018-06-05] MEDS ORDERED: LEVOTHYROXINE 150MCG TABLET (0.15MG) PO (06:00)
== END 2018-06-04 13:37 | disposition home or self-care (01) | DRG 393 ==
LOC: M MS4PR 06-03 20:31 → M ED 07:04 → M ED INP 11:24 → M ICU 15:17
PROVIDERS: General Practice
PROC: 5A1D70Z Performance of Urinary Filtration, Intermittent, Less than 6 Hours Per Day (ICD-10-PCS; principal; 2018-06-03)
DX: K63.1 Perforation of intestine (nontraumatic) (principal); N18.6 End stage renal disease; J84.9 Interstitial pulmonary disease, unspecified; E46 Unspecified protein-calorie malnutrition; Z94.0 Kidney transplant status; K25.9 Gastric ulcer, unspecified as acute or chronic, without hemorrhage or perforation; E87.5 Hyperkalemia; K21.9 Gastro-esophageal reflux disease without esophagitis; D63.1 Anemia in chronic kidney disease; E03.9 Hypothyroidism, unspecified; Z96.643 Presence of artificial hip joint, bilateral; Z85.810 Personal history of malignant neoplasm of tongue; Z85.828 Personal history of other malignant neoplasm of skin; Z99.2 Dependence on renal dialysis; Z87.891 Personal history of nicotine dependence; Z79.82 Long term (current) use of aspirin; Z79.891 Long term (current) use of opiate analgesic; Z79.899 Other long term (current) drug therapy; Z88.8 Allergy status to other drugs, medicaments and biological substances

== ENCOUNTER → 2018-06-21 | Outpatient (CLI) | payer MEDICARE, OTHER | LOC: M SMT 09:13 | DX: K63.1 Perforation of intestine (nontraumatic) (principal); Z96.642 Presence of left artificial hip joint | CPT/HCPCS: 74018 ==

== ENCOUNTER → 2018-09-06 | Outpatient (CLI) | payer MEDICARE, OTHER ==
[~2018-09-06] MED LIST changes: -/PANT40TA PO; -ASPI81CH PO; -ASPI81TA85 PO; -ATOR1TAB21 PO; -BACT800T5 PO; -BENA25CA PO; -BISA5TAB64 PO; -CIPR250T3 PO; -CIPR25SS OR; -COLA100C2 OR; -COLA100C5 PO; -COLL500C PO; -EPOG1000 SQ; -FLAG500T OR; -FLORCAP6 PO; +ISOVUE-300 61% 50ML VIAL (Q9967) As Ordered; -KEFL500C17 PO; -LEVO200T3 PO; -LEVO200T4 PO; -LEVO25TA5 PO; +LIDOCAINE 2% MDV 20 ML VIAL As Ordered; -LOSA100T36 PO; -LOSA50TA20 PO; -METAPKT PO; -METR500T10 PO; -MIDO2.5T PO; -MULTIVIT PO; -Multivitamin PO; -NEPRLIQ3 PO; -NEUR100C PO; -NORV5TAB; -NORV5TAB PO; -PERC7.5T11 PO; -PERC7.5T8; -PERCOCET PO; -PRAV40TA2 PO; -PREVASTATIN; -PROVASTATIN PO; -RENA800T; -RENA800T PO; -RENV0.8P PO; -RENV2.4P PO; -REST30CA OR; -REST30CA PO; -SENO8.6T10 PO; -SENSIPAR; -SENSIPAR PO; -SPS15SUS2 PO; -Sensipar PO; -TAGA200T PO; -TYLE325T5 PO; -VICO5TAB; -VICO5TAB OR; -VITA100041 PO; -VITA100067 PO; -VITA500C24 PO; -VITA500T; -VITA500T PO; -VITA500T88 PO; -VITAMIN D PO; -ZANT150T; -ZANT150T OR; -[UNRECOGNIZED DRUG - OTHER] IV; -epogen IV; -iron IV; -zemplar IV
== END | disposition home or self-care (01) ==
LOC: M IRPRO 07:44
DX: T82.898A Other specified complication of vascular prosthetic devices, implants and grafts, initial encounter (principal); N18.6 End stage renal disease; Z99.2 Dependence on renal dialysis
CPT/HCPCS: 36901

== ENCOUNTER 2018-12-10 09:39 | Inpatient (IN) | payer MEDICARE, OTHER ==
[~2018-12-10] VITALS: Ht 172.7 cm; Wt 80.9 kg
[~2018-12-10 09:39] MED LIST changes: +/PANT40TA PO; +ASPI1CHW2 PO; +ASPI1TAB15 PO; +ASPI81CH PO; +ASPI81TA85 PO; +ATOR1TAB21 PO; +BACT800T5 PO; +BENA25CA PO; +BISA5TAB64 PO; +BISAC5TA PO; +CEFD1CAP8 PO; +CIPR250T3 PO; +CIPR25SS OR; +COLA100C2 OR; +COLA100C5 PO; +COLL500C PO; +CYCL10TA PO; +EPOG1000 SQ; +FLAG500T OR; +FLORCAP10 PO; +FLORCAP6 PO; -ISOVUE-300 61% 50ML VIAL (Q9967) As Ordered; +KEFL500C17 PO; +LEVO200T3 PO; +LEVO200T4 PO; +LEVO25TA5 PO; +LEVO50TA45 PO; -LIDOCAINE 2% MDV 20 ML VIAL As Ordered; +LOSA100T50 PO; +LOSA50TA88 PO; +METAPKT PO; +METR-201 PO; +METR500T10 PO; +MIDO2.5T PO; +MULTIVIT PO; +Multivitamin PO; +NEPRLIQ3 PO; +NEUR100C PO; +NORV5TAB; +NORV5TAB PO; +OXYC1TAB23 PO; +OXYC5SOL15 PO; +PERC7.5T11 PO; +PERC7.5T8; +PERCOCET PO; +PRAV10TA4 PO; +PRAV20TA2 PO; +PRAV40TA2 PO; +PREVASTATIN; +PROVASTATIN PO; +RENA800T; +RENA800T PO; +RENV0.8P PO; +RENV2.4P PO; +REST30CA OR; +REST30CA PO; +SENO8.6T10 PO; +SENSIPAR; +SENSIPAR PO; +SPS15SUS2 PO; +Sensipar PO; +TAGA200T PO; +TYLE325T5 PO; +VICO5TAB; +VICO5TAB OR; +VITA100041 PO; +VITA100067 PO; +VITA500C24 PO; +VITA500T; +VITA500T PO; +VITA500T88 PO; +VITAMIN D PO; +VITMTA PO; +WHEEMIS3 XX; +ZANT150T; +ZANT150T OR; +[UNRECOGNIZED DRUG - OTHER] IV; +epogen IV; +iron IV; +zemplar IV
[2018-12-10] MEDS ORDERED: ONDANSETRON 4MG/2ML VIAL (J2405) IV ONE (10:00)
[2018-12-10] MEDS ORDERED: LEVO2TA PO (10:05)
[2018-12-10] MEDS ORDERED: SYNT50TA PO (10:05)
[2018-12-10] MEDS ORDERED: TAGA200T3 PO (10:06)
[2018-12-10 10:31] LABS: BASO % 0.2 % (0.0-1.0); EOS # 0.1 10^3/uL (0.0-0.50); EOS % 2.5 % (0.0-3.0); HEMATOCRIT 28.6 % (42.0-52.0); HEMOGLOBIN 9.7 g/dl (13.5-17.5); LYMPH # 0.8 10^3/uL (1.5-4.5); LYMPH % 15.2 % (24.0-44.0); MEAN CORPUSCULAR HEMOGLOBIN 36.2 pg (27.0-33.0); MEAN CORPUSCULAR HGB CONC 33.9 g/dl (32.0-36.5); MEAN CORPUSCULAR VOLUME 106.7 fl (80.0-96.0); MONO # 0.3 10^3/uL (0.0-0.8); MONO % 5.7 % (0.0-5.0); NEUTROPHILS % 76.2 % (36.0-66.0); PLATELET COUNT, AUTOMATED 128 10^3/uL (150-450); RED BLOOD COUNT 2.68 10^6/uL (4.30-6.10); WHITE BLOOD COUNT 5.3 10^3/uL (4.0-10.0)
--- NOTE | 2018-12-10 11:03 | REP ---
ABDOMEN FLAT UPRIGHT PA CHEST, THREE VIEWS: HISTORY: Abdominal pain. Air is present in small and large intestine. There are no air fluid levels or dilated loops of intestine. There is no pneumoperitoneum. The patient is status post removal of a right hip arthroplasty. Dystrophic ossification and heterotropic bone are present. There is deformity of the acetabulum. An increase in interstitial markings is present in the lungs consistent with chronic interstitial change. Parenchymal density is present in the right lung apex unchanged compared to the previous study. The cardiac silhouette is enlarged. IMPRESSION: 1. Nonspecific bowel gas pattern. 2. Chronic interstitial change. 3. Cardiomegaly. Electronically Signed by Michael Shi MD 12/10/2018 11:22 A
[2018-12-10 11:45] LABS: PROTHROMBIN TIME 13.3 SECONDS (12.1-14.4)
[2018-12-10 11:46] LABS: PARTIAL THROMBOPLASTIN TIME 34.2 SECONDS (25.4-37.6)
[2018-12-10 12:03] LABS: ALBUMIN 3.7 GM/DL (3.2-5.2); BILIRUBIN,DIRECT 0.2 MG/DL (0.0-0.2); BILIRUBIN,TOTAL 0.4 MG/DL (0.2-1.0); CALCIUM LEVEL 8.5 MG/DL (8.8-10.2); CREATININE FOR GFR 3.71 MG/DL (0.70-1.30); GLOMERULAR FILTRATION RATE 17.8 (>49); MB/CK RELATIVE INDEX 3.51 (< OR =4); POTASSIUM SERUM 3.3 MEQ/L (3.5-5.1); TOTAL PROTEIN 6.7 GM/DL (6.4-8.2); TROPONIN I 0.04 NG/ML (< 0.10)
--- NOTE | 2018-12-10 12:12 | REP ---
CT abdomen and pelvis without IV or oral contrast: History: Rule out perforated viscus. Comparison CT study June 01, 2018. Also reviewed are images from March 10, 2016. CT findings: There is a large amount of portal venous gas again noted throughout the right and left lobe of the liver. In the abdomen there are multiple areas of intravascular gas and portal venous and mesenteric venous vascular structures. No free intraperitoneal air is seen. There is a moderate amount of colonic stool but no evidence of obstruction. No bowel wall thickening or pneumatosis is identified in the large or small intestine. There is a ventral hernia containing a small quantity of abdominal fat. There are atrophic bilateral iliac fossa renal transplant. Profound atrophy is seen in the [place] renal kidneys. Extensive vascular calcifications noted. The patient is status post removal of a right hip prosthesis for secondary infection. No soft tissue gas is seen outside the abdomen. No focal splenic lesion is seen. There is a descending duodenal diverticulum. No gallbladder or pancreatic abnormality is seen. Impression: Large amount of portal venous gas suggesting bowel wall ischemia. However, no bowel wall perforation site is seen. No free intraperitoneal gas is noted. Vascular gas is seen in mesenteric vessels. There is some fairly prominent intramural gas in the wall of the stomach although most of this appears to be vascular as well . Similar findings were observed June 01, 2018. Findings were telephoned to the referring provider at the time of the study. Electronically Signed by Lalo Goodman MD 12/10/2018 08:34 P
[2018-12-10] MEDS ORDERED: OXYC1TAB15 PO (13:02)
[2018-12-10] MEDS ORDERED: MIRC30SO IV (13:07)
[2018-12-10] MEDS ORDERED: VENO20IN IV (13:07)
[2018-12-10] MEDS ORDERED: [UNRECOGNIZED DRUG - CODE] IV (13:07)
[2018-12-10] MEDS: ONDANSETRON 4MG/2ML VIAL (J2405) IV PRN ×2 (16:42→20:59)
[2018-12-10] MEDS ORDERED: ACETAMINOPHEN TAB 650MG DOSE (2X325MG) PO PRN (16:45)
[2018-12-10] MEDS ORDERED: MORPHINE 4 MG/ML 1ML VIAL/SYRINGE (J2270) IV PRN (16:45)
[2018-12-10] MEDS ORDERED: ONDANSETRON 4 MG TAB (S0181) PO PRN (16:45)
[2018-12-10] MEDS ORDERED: PERCOCET 5MG/325MG TAB PO PRN (16:45)
[2018-12-10] MEDS ORDERED: SLF 3 ML SYR IV PRN (19:00)
[2018-12-10 19:11] VITALS: BP 165/87
[2018-12-10 20:00] VITALS: BP 110/65
--- NOTE | 2018-12-10 20:05 | HPEPDOC ---
[facility] Medical History & Physical Date of Admission Dec 10, 2018 History and Physical CHIEF COMPLAINT: [sudden abd pain HISTORY OF PRESENT ILLNESS: This is an 85 yo male with multiple pmhx who presented to the Ed for umbilical (hernia) pain after HD today. Patient was seen before for similar complaint. Per patient and his - He was evaluated and was found to have air in abd; however surgery done and nothing was found. Imaging revealed air in the portal vein. ED contacted surgery team. Patient said ( told me) he is not interesting in doing surgery at this time, unless it is for a kidney transplant . He denied fever chills , chest pain, sob. His abd pain is improved. Patient cannot eat solids due to previous surgery but he takes liquid. 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 PAST SURGICAL HISTORY: Right hip prosthesis, Dr. Silva, November 2008, left hip prosthesis August 2007 radical neck resection for tongue cancer 2010, renal transplant times two 1982 and 1995, bilateral cataract surgery 01/01/2017, stents and grafts for dialysis, umbilical hernia repair, varicose vein stripping, parathyroid surgery times two, numerous skin cancer removal. Umbilical hernia. Right ventral abdominal hernia. FAMILY HISTORY: Father and mother . Two brothers and one sister are healthy. SOCIAL HISTORY: The patient is a former smoker, has not smoked in the past 10 years. The patient is . Healthcare proxy is his , Ayana, phone number [phone]. HOME MEDICATIONS: see below REVIEW OF SYSTEMS: All 14 points ROS is negative except what's stated in HPI PHYSICAL EXAMINATION: GEN: no acute disrtress HEENT: vertical post surgery scar from lis lower lip to his chin , most of his tongue has also been removed CVS: Normal S1/s2, no murmurs, rubs or gallops, RESP: Lungs are clear to auscultation bilaterally, no crackles, wheezes or rhonchi Abd: soft, mildly tender abd umbilical hernia, reducible but there is slight resistance, nondistended, + BS MSK: full ROM, 5/5 strength in all extremities Integumentary: no rash or bruises Neuro: AOAx3, no focal deficit psych: normal mood, good judgement and cooperative CT abd: Large amount of portal venous gas suggesting bowel wall ischemia. However, no bowel wall perforation site is seen. No free intraperitoneal gas is noted. Vascular gas is seen in mesenteric vessels. There is some fairly prominent intramural gas in the wall of the stomach although most of this appears to be vascular as well . Similar findings were observed June 01, 2018. Ekg - nsr with first degree av block ASSESSMENT AND PLAN: umbilical hernia and pain Esrd ON hd ANEMIA - receives iron with HD bowel wall ischemia - likely 2/2 dropped bp during HD Plan c/w HD and iv iron surgery consult - saw patient Spoke with vascular surgeon Dr. Vela - he already saw patient - rec npo and gentle hydration, hold off on AC for now gentle hydration npo ppi f/u lipid panel dvt ppx heparin full code ,from home , no svc Vital Signs Vital Signs Date Time Temp Pulse Resp B/P (MAP) Pulse Ox O2 Delivery O2 Flow Rate FiO2 12/10/18 19:11 98.3 103 21 165/87 (113) 98 12/10/18 18:15 Room Air Laboratory Data Labs 24H Laboratory Tests 2 12/10/18 10:13: Immature Granulocyte % (Auto) 0.2, White Blood Count 5.3, Red Blood Count 2.68L, Hemoglobin 9.7L, Hematocrit 28.6L, Mean Corpuscular Volume 106.7H, Mean Corpuscular Hemoglobin 36.2H, Mean Corpuscular Hemoglobin Concent 33.9, Red Cell Distribution Width 12.7, Platelet Count 128L, Neutrophils (%) (Auto) 76.2H, Lymphocytes (%) (Auto) 15.2L, Monocytes (%) (Auto) 5.7H, Eosinophils (%) (Auto) 2.5, Basophils (%) (Auto) 0.2, Neutrophils # (Auto) 4.0, Lymphocytes # (Auto) 0.8L, Monocytes # (Auto) 0.3, Eosinophils # (Auto) 0.1, Basophils # (Auto) 0.0, Nucleated Red Blood Cells % (auto) 0.0, Lactic Acid Level 2.2*H 12/10/18 11:24: Prothrombin Time 13.3, Prothromb Time International Ratio 1.00, Activated Parti al Thromboplast Time 34.2, Anion Gap 8, Glomerular Filtration Rate 17.8L, Calcium Level 8.5L, Aspartate Amino Transf (AST/SGOT) 42H, Alanine Aminotransferase (ALT/SGPT) 48, Alkaline Phosphatase 134H, Total Bilirubin 0.4, Direct Bilirubin 0.2, Total Creatine Kinase 57, Creatine Kinase MB 2.0, Creatine Kinase MB Relative Index 3.51, Troponin I 0.04, Total Protein 6.7, Albumin 3.7, Albumin/Globulin Ratio 1.23, Lipase 188 12/10/18 16:04: Lactic Acid Followup at 4 Hours 1.0 CBC/BMP Laboratory Tests 12/10/18 10:13 Red Blood Count 2.68 L, Mean Corpuscular Volume 106.7 H, Mean Corpuscular Hemoglobin 36.2 H, Mean Corpuscular Hemoglobin Concent 33.9, Red Cell Di stribution Width 12.7, Neutrophils (%) (Auto) 76.2 H, Lymphocytes (%) (Auto) 15.2 L, Monocytes (%) (Auto) 5.7 H, Eosinophils (%) (Auto) 2.5, Basophils (%) (Auto) 0.2, Neutrophils # (Auto) 4.0, Lymphocytes # (Auto) 0.8 L, Monocytes # (Auto) 0.3, Eosinophils # (Auto) 0.1, Basophils # (Auto) 0.0 12/10/18 11:24 Microbiology Microbiology 12/10/18 Blood Culture, Received Pending 12/10/18 Blood Culture, Received Pending Home Medications Scheduled (Nepro with Carb Steady) 1 Liq Liq, 1 LIQ PO 7XD (Florajen3) 1 Cap Cap, 1 CAP PO DAILY (Heparin Sodium) 10,000 Unit/10 Ml Inj, 1 DOSE IV HD Aspirin (Aspirin) 81 Mg Tab, 81 MG PO 4XWK TAKES ON NON-DIALYSIS DAYS, SUN/MON/WED/FRI Bisacodyl (Bisacodyl EC) 5 Mg Tab, 5 MG PO DAILY Levothyroxine Sodium (Synthroid) 0.2 Mg Tab, 200 MCG PO DAILY TAKES WITH 100MCG DOSE FOR TOTAL DOSE OF 300MCG DAILY Levothyroxine Sodium (Synthroid) 50 Mcg Tab, 100 MCG PO DAILY TAKES WITH 200MCG DOSE FOR TOTAL DOSE OF 300MCG DAILY Methoxy Polyethylene Glycol-Ep (Mircera) 30 Mcg/0.3 Ml Suzanne, 1 DOSE IV HD Multivitamins *[facility] STOCKED* (Thera M Plus *[facility] STOCKED*) 1 Tab Tab, 1 TAB PO DAILY Pravastatin Sodium (Pravastatin Sodium) 20 Mg Tab, 20 MG PO QHS Sevelamer Carbonate (Renvela Oral Suspension) 2.4 Gm Mango, 7.2 GM PO WM Vitamin D (Vitamin D) 1,000 Unit Cap, 1,000 UNIT PO DAILY Scheduled PRN (Oxycodone/Acetaminophen 7.5-325 mg) 1 Tab Tab, 1 TAB PO Q6H PRN for PAIN Cimetidine (Tagamet Hb) 200 Mg Tab, 200 MG PO BID PRN for HEARTBURN Allergies Coded Allergies: Hydrochlorothiazide (Verified Allergy, Unknown, 12/10/18) UNKNOWN REACTION Methyldopa (Verified Allergy, Unknown, 12/10/18) UNKNOWN REACTION HOWARD ESCALANTE MD Dec 10, 2018 20:05
[2018-12-10] MEDS: SLF 3 ML SYR IV SCH (20:19)
[2018-12-10] MEDS ORDERED: NS 1,000 ML IV SCH (20:30)
[2018-12-10] MEDS: PRAVASTATIN 20 MG TAB PO SCH (20:59)
[2018-12-10] MEDS: SENOKOT S TAB PO SCH (20:59)
[2018-12-10 23:55] VITALS: BP 109/65
[2018-12-11 04:00] VITALS: BP 103/58
[2018-12-11] MEDS: SLF 3 ML SYR IV SCH ×3 (05:06→22:00)
[2018-12-11] MEDS: LEVOTHYROXINE 100MCG TABLET (0.1MG) PO SCH (05:41)
[2018-12-11] MEDS: ONDANSETRON 4MG/2ML VIAL (J2405) IV PRN (05:50)
[2018-12-11 06:12] LABS: BASO % 0.2 % (0.0-1.0); EOS # 0.1 10^3/uL (0.0-0.50); EOS % 1.7 % (0.0-3.0); HEMATOCRIT 29.2 % (42.0-52.0); HEMOGLOBIN 9.8 g/dl (13.5-17.5); LYMPH # 0.3 10^3/uL (1.5-4.5); LYMPH % 8.1 % (24.0-44.0); MEAN CORPUSCULAR HEMOGLOBIN 35.6 pg (27.0-33.0); MEAN CORPUSCULAR HGB CONC 33.6 g/dl (32.0-36.5); MEAN CORPUSCULAR VOLUME 106.2 fl (80.0-96.0); MONO # 0.4 10^3/uL (0.0-0.8); MONO % 8.6 % (0.0-5.0); NEUTROPHILS # 3.3 10^3/uL (1.8-7.7); NEUTROPHILS % 80.9 % (36.0-66.0); PLATELET COUNT, AUTOMATED 113 10^3/uL (150-450); RED BLOOD COUNT 2.75 10^6/uL (4.30-6.10); WHITE BLOOD COUNT 4.1 10^3/uL (4.0-10.0)
[2018-12-11 06:39] LABS: CALCIUM LEVEL 8.3 MG/DL (8.8-10.2); CHOLESTEROL RISK RATIO 4.103 (<5); CREATININE FOR GFR 5.24 MG/DL (0.70-1.30); MAGNESIUM LEVEL 3.2 MG/DL (1.8-2.4)
[2018-12-11 08:01] VITALS: BP 117/58
--- NOTE | 2018-12-11 08:28 | IPNPDOC ---
Text Note Date of Service The patient was seen on 12/11/18. NOTE Subjective: Patient seen and examined at bedside. No acute overnight events reported. Patient still complains of nausea, but states has improved somewhat. Objective: General: NAD, sitting comfortably at edge of bed HEENT: NC/AT, EOMI, s/p tongue surgery, well healed surgical scar on chin Lungs: CTA B/L Heart: +S1S2, RRR Abd: soft, Ext: no edema, LUE A/V fistula A/P: 63 yo male for abdominal pain with extensive medical history: #Abd pain - CT suggestive of ischemic bowel - NPO/IVF - follow as per surgery/vascular #ESRD/HD s/p two failed kidney transplants - TTS - follow as per nephrology - assistance appreciated #chronic anemia #tongue cancer 2010 - s/p resection #chronic osteomyelitis of the right clavicle with MSSA #hypothyroidism #GERD/PUD #ILD dvt ppx heparin full code ,from home , no svc VS,Fishbone, I+O VS, Fishbone, I+O Laboratory Tests 12/10/18 10:13 Red Blood Count 2.68 L, Mean Corpuscular Volume 106.7 H, Mean Corpuscular Hemoglobin 36.2 H, Mean Corpuscular Hemoglobin Concent 33.9, Red Cell Distr ibution Width 12.7, Neutrophils (%) (Auto) 76.2 H, Lymphocytes (%) (Auto) 15.2 L, Monocytes (%) (Auto) 5.7 H, Eosinophils (%) (Auto) 2.5, Basophils (%) (Auto) 0.2, Neutrophils # (Auto) 4.0, Lymphocytes # (Auto) 0.8 L, Monocytes # (Auto) 0.3, Eosinophils # (Auto) 0.1, Basophils # (Auto) 0.0 12/10/18 11:24 12/11/18 05:36 Red Blood Count 2.75 L, Mean Corpuscular Volume 106.2 H, Mean Corpuscular Hemoglobin 35.6 H, Mean Corpuscular Hemoglobin Concent 33.6, Red Cell Distribution Width 12.4, Neutrophils (%) (Auto) 80.9 H, Lymphocytes (%) (Auto) 8.1 L, Monocytes (%) (Auto) 8.6 H, Eosinophils (%) (Auto) 1.7, Basophils (%) (Auto) 0.2, Neutrophils # (Auto) 3.3, Lymphocytes # (Auto) 0.3 L, Monocytes # (Auto) 0.4, Eosinophils # (Auto) 0.1, Basophils # (Auto) 0.0 Vital Signs Date Time Temp Pulse Resp B/P (MAP) Pulse Ox O2 Delivery O2 Flow Rate FiO2 12/11/18 08:01 98.6 90 18 117/58 (77) 99 12/10/18 18:15 Room Air I&O- Last 24 Hours up to 6 AM 12/11/18 06:00 Intake Total 280 ml Output Total 0 ml Balance 280 ml MARIAN GABRIEL MD Dec 11, 2018 08:17
--- NOTE | 2018-12-11 08:42 | ECGEPIP ---
Stationary ECG Study [facility] - ED Test Date: 2018-12-10 Pat Name: REGLA FIGUEREDO Department: Room: - Gender: M [employer] Tender: [facility] : 1955 Requested By: Silas Gandhi Order Number: [id number] Reading MD: Brandy Breen Measurements Intervals [place] Rate: 66 P: 79 NC: 257 QRS: 0 QRSD: 102 T: 48 QT: 472 QTc: 496 Interpretive Statements SINUS RHYTHM WITH FIRST DEGREE AV BLOCK PROLONGED QT INTERVAL NSTTW ABNORMALITY PROLONGED QTC CLINICAL CORRELATION Electronically Signed On 12-11-2018 8:42:46 EST by Brandy Breen
[2018-12-11] MEDS ORDERED: LEVOTHYROXINE 50MCG TABLET (0.05MG) PO SCH (09:00)
[2018-12-11] MEDS: VITAMIN D 1,000 INTERNATIONAL UNITS TABLET PO SCH (09:26)
[2018-12-11] MEDS: SENOKOT S TAB PO SCH ×2 (09:26→21:53)
[2018-12-11] MEDS: MULTIVITAMINS/MINERALS THERAP 1 TAB PO SCH (09:27)
[2018-12-11] MEDS: PANTOPRAZOLE 40MG TAB (PROTONIX) PO SCH (09:27)
[2018-12-11 11:48] VITALS: BP 112/65
[2018-12-11] MEDS ORDERED: D5W/0.45% SODIUM CHLORIDE 1,000 ML IV SCH (12:30)
[2018-12-11 15:51] VITALS: BP 107/53
[2018-12-11 20:00] VITALS: BP 114/57
[2018-12-11] MEDS: PRAVASTATIN 20 MG TAB PO SCH (21:53)
--- NOTE | 2018-12-11 22:34 | CR.PDOC ---
Subjective General Date/Time Seen The patient was seen on 12/11/18 at 22:29. Subject Chief Complaint/History The patient is a 63-year-old male admitted with a reason for visit of Esrd On Dialysis;. Current Medications Current Medications Current Medications Acetaminophen (Tylenol Tab) 650 mg Q4HP PRN PO MILD PAIN OR FEVER Last administered on 12/11/18at 00:53; Start 12/10/18 at 16:45 Darbepoetin Luisito (Aranesp (Dialysis Use)) 200 mcg HD IV ; Start 12/12/18 at 08:00 Dextrose/Sodium Chloride 1,000 ml @ 40 mls/hr Q24H IV Last administered on 12/11/18at 12:24; Start 12/11/18 at 12:30 Home Med (Med Rec Complete!) ASDIRECTED XX ; Start 12/10/18 at 13:15; Stop 12/10/18 at 13:15; Status DC Levothyroxine Sodium (Synthroid) 100 mcg DAILY PO ; Start 12/11/18 at 09:00; Sto p 12/11/18 at 09:00; Status DC Levothyroxine Sodium (Synthroid) 300 mcg DAILY@0600 PO Last administered on 12/11/18at 05:41; Start 12/11/18 at 06:00 Morphine Sulfate (Morphine Sulfate Inj) 2 mg Q2HP PRN IV SEVERE PAIN (PS 8-10) Last administered on 12/10/18at 17:03; Start 12/10/18 at 16:45 Multivitamins (Theragram-M) 1 tab DAILY PO Last administered on 12/11/18at 09:27; Start 12/11/18 at 09:00 Ondansetron HCl (ZOFRAN INJection) 4 mg Q4HP PRN IV NAUSEA OR VOMITING Last administered on 12/11/18at 05:50; Start 12/10/18 at 14:00 Ondansetron HCl (Zofran) 4 mg Q6HP PRN PO NAUSEA OR VOMITING; Start 12/10/18 at 16:45 Oxycodone/ Acetaminophen (Percocet 5mg/ 325mg Tablet) 1 tab Q4HP PRN PO MODERATE PAIN (PS 5-7); Start 12/10/18 at 16:45 Pantoprazole Sodium (Protonix) 40 mg DAILY PO Last administered on 2/6/19at 09:27; Start 12/11/18 at 09:00 Pravastatin Sodium (Pravachol) 20 mg QHS PO Last administered on 12/11/18 21:53; Start 12/10/18 at 21:00 Senna/Docusate Sodium (Senokot S) 1 tab BID PO Last administered on 12/11/18 21:53; Start 12/10/18 at 21:00 Sodium Chloride 1,000 ml @ 40 mls/hr Q24H IV Last administered on 12/10/18 20:59; Start 12/10/18 at 20:30; Stop 12/11/18 at 12:16; Status DC Sodium Chloride (Saline Lock Flush) 2 ml ASDIRECTED PRN IV SEE LABEL COMMENTS Last administered on 12/10/18 20:19; Start 12/10/18 at 19:00 Sodium Chloride (Saline Lock Flush) 2 ml SLF IV Last administered on 12/11/18 05:06; Start 12/10/18 at 22:00 Vitamin D (Vitamin D) 1,000 units DAILY PO Last administered on 12/11/18 09:26; Start 12/11/18 at 09:00 Allergies Coded Allergies: Hydrochlorothiazide (Verified Allergy, Unknown, 12/10/18) UNKNOWN REACTION Methyldopa (Verified Allergy, Unknown, 12/10/18) UNKNOWN REACTION General Date of Admission Dec 10, 2018 at 16:36 Chief Complaint The patient is a 63-year-old male admitted with a reason for visit of Esrd On Dialysis;. Home Medications Scheduled (Nepro with Carb Steady) 1 Liq Liq, 1 LIQ PO 7XD, (Reported) (Florajen3) 1 Cap Cap, 1 CAP PO DAILY, (Reported) (Heparin Sodium) 10,000 Unit/10 Ml Inj, 1 DOSE IV HD, (Reported) Aspirin (Aspirin) 81 Mg Tab, 81 MG PO 4XWK, (Reported) TAKES ON NON-DIALYSIS DAYS, SUN/MON/WED/FRI Bisacodyl (Bisacodyl EC) 5 Mg Tab, 5 MG PO DAILY, (Reported) Levothyroxine Sodium (Synthroid) 0.2 Mg Tab, 200 MCG PO DAILY, (Reported) TAKES WITH 100MCG DOSE FOR TOTAL DOSE OF 300MCG DAILY Levothyroxine Sodium (Synthroid) 50 Mcg Tab, 100 MCG PO DAILY, (Reported) TAKES WITH 200MCG DOSE FOR TOTAL DOSE OF 300MCG DAILY Methoxy Polyethylene Glycol-Ep (Mircera) 30 Mcg/0.3 Ml Suzanne, 1 DOSE IV HD, (Reported) Multivitamins *[facility] STOCKED* (Thera M Plus *[facility] STOCKED*) 1 Tab Tab, 1 TAB PO DAILY, (Reported) Pravastatin Sodium (Pravastatin Sodium) 20 Mg Tab, 20 MG PO QHS, (Reported) Sevelamer Carbonate (Renvela Oral Suspension) 2.4 Gm Mango, 7.2 GM PO WM, (Reported) Vitamin D (Vitamin D) 1,000 Unit Cap, 1,000 UNIT PO DAILY, (Reported) Scheduled PRN (Oxycodone/Acetaminophen 7.5-325 mg) 1 Tab Tab, 1 TAB PO Q6H PRN for PAIN, (Reported) Cimetidine (Tagamet Hb) 200 Mg Tab, 200 MG PO BID PRN for HEARTBURN, (Reported) VITAL SIGNS VITAL SIGNS Vital Signs Date Time Temp Pulse Resp B/P (MAP) Pulse Ox O2 Delivery O2 Flow Rate FiO2 12/11/18 20:00 98.3 82 18 114/57 (76) 96 12/11/18 15:51 98.0 81 18 107/53 (71) 93 12/11/18 11:48 99.4 74 18 112/65 (81) 94 12/11/18 08:01 98.6 90 18 117/58 (77) 99 12/11/18 04:00 99.3 92 18 103/58 (73) 95 12/10/18 23:55 98.5 98 18 109/65 (80) 95 Intake & Output 12/11/18 06:00 Intake Total 280 ml Output Total 0 ml Balance 280 ml Laboratory Tests 12/11/18 05:36: White Blood Count 4.1, Red Blood Count 2.75L, Hemoglobin 9.8L, Hematocrit 29.2L, Mean Corpuscular Volume 106.2H, Mean Corpuscular Hemoglobin 35.6H, Mean Corpuscular Hemoglobin Concent 33.6, Red Cell Distribution Width 12.4, Platelet Count 113L, Neutrophils (%) (Auto) 80.9H, Lymphocytes (%) (Auto) 8.1L, Monocytes (%) (Auto) 8.6H, Eosinophils (%) (Auto) 1.7, Basophils (%) (Auto) 0.2, Neutrophils # (Auto) 3.3, Lymphocytes # (Auto) 0.3L, Monocytes # (Auto) 0.4, Eosinophils # (Auto) 0.1, Basophils # (Auto) 0.0, Immature Granulocyte % (Auto) 0.5, Nucleated Red Blood Cells % (auto) 0.0, Sodium Level 137, Potassium Level 4.0#, Chloride Level 100, Carbon Dioxide Level 29, Anion Gap 8, Blood Urea Nitrogen 56H, Creatinine 5.24H, Glomerular Filtration Rate 12.0L, Fasting Glucose 95, Calcium Level 8.3L, Magnesium Level 3.2H, Triglycerides Level 135, LDL Cholesterol 63, Total Cholesterol 119, Non-HDL Cholesterol (LDL + VLDL) 90, Total HDL Cholesterol 29L, Cholesterol/HDL Ratio 4.103 Current Medications Medications (Trade) Dose Ordered Sig/Lexx Route PRN Reason Start Time Stop Time Status Last Admin Dose Admin Acetaminophen (Tylenol Tab) 650 mg Q4HP PRN PO MILD PAIN OR FEVER 12/10/18 16:45 12/11/18 00:53 Dextrose/Sodium Chloride 1,000 ml @ 40 mls/hr Q24H IV 12/11/18 12:30 12/11/18 12:24 Levothyroxine Sodium (Synthroid) 300 mcg DAILY@0600 PO 12/11/18 06:00 12/11/18 05:41 Morphine Sulfate (Morphine Sulfate Inj) 2 mg Q2HP PRN IV SEVERE PAIN (PS 8-10) 12/10/18 16:45 12/10/18 17:03 Multivitamins (Theragram-M) 1 tab DAILY PO 12/11/18 09:00 12/11/18 09:27 Ondansetron HCl (ZOFRAN INJection) 4 mg Q4HP PRN IV NAUSEA OR VOMITING 12/10/18 14:00 12/11/18 05:50 Pantoprazole Sodium (Protonix) 40 mg DAILY PO 12/11/18 09:00 12/11/18 09:27 Pravastatin Sodium (Pravachol) 20 mg QHS PO 12/10/18 21:00 12/11/18 21:53 Senna/Docusate Sodium (Senokot S) 1 tab BID PO 12/10/18 21:00 12/11/18 21:53 Sodium Chloride (Saline Lock Flush) 2 ml ASDIRECTED PRN IV SEE LABEL COMMENTS 12/10/18 19:00 12/10/18 20:19 Vitamin D (Vitamin D) 1,000 units DAILY PO 12/11/18 09:00 12/11/18 09:26 Laboratory Tests 12/10/18 10:13 Red Blood Count 2.68 L, Mean Corpuscular Volume 106.7 H, Mean Corpuscular Hemoglobin 36.2 H, Mean Corpuscular Hemoglobin Concent 33.9, Red Cell Distribution Width 12.7, Neutrophils (%) (Auto) 76.2 H, Lymphocytes (%) (Auto) 15.2 L, Monocytes (%) (Auto) 5.7 H, Eosinophils (%) (Auto) 2.5, Basophils (%) (Auto) 0.2, Neutrophils # (Auto) 4.0, Lymphocytes # (Auto) 0.8 L, Monocytes # (Auto) 0.3, Eosinophils # (Auto) 0.1, Basophils # (Auto) 0.0 12/10/18 11:24 12/11/18 05:36 Red Blood Count 2.75 L, Mean Corpuscular Volume 106.2 H, Mean Corpuscular Hemoglobin 35.6 H, Mean Corpuscular Hemoglobin Concent 33.6, Red Cell Distribution Width 12.4, Neutrophils (%) (Auto) 80.9 H, Lymphocytes (%) (Auto) 8.1 L, Monocytes (%) (Auto) 8.6 H, Eosinophils (%) (Auto) 1.7, Basophils (%) (Auto) 0.2, Neutrophils # (Auto) 3.3, Lymphocytes # (Auto) 0.3 L, Monocytes # (Auto) 0.4, Eosinophils # (Auto) 0.1, Basophils # (Auto) 0.0 Microbiology 12/10/18 Blood Culture - Preliminary, Resulted No growth after 24 hours . All specim... 12/10/18 Blood Culture - Preliminary, Resulted No growth after 24 hours . All specim... Objective Physical Examination General Exam: Positive: Alert, Cooperative, No Acute Distress Eye Exam: Positive: PERRLA, Conjunctiva & lids normal, EOMI ENT Exam: Positive: Atraumatic, Mucous membr. moist/pink, Pharynx Normal, Nares Patent, Ext Auditory Canal Nml, Pinna Normal Neck Exam: Positive: Supple, +2 carotid pulse wo bruit Chest Exam: Positive: Clear to auscultation, Normal air movement Heart Exam: Positive: Rate Normal, Regular Rhythm Telemetry: Positive: No significant arrhythmia Abdomen Exam: Positive: Normal bowel sounds, Soft Male Exam: Positive: Normal Genital Exam Extremity Exam: Negative: Clubbing, Cyanosis, Edema, Normal pulses, Tenderness, Swelling Skin Exam: Positive: Nl turgor and temperature Neuro Exam: Positive: Normal Gait, Normal Speech, Strength at 5/5 X4 ext, Normal Tone, Sensation Intact, Cranial Nerves 3-12 NL, Reflexes 2+ Psych Exam: Positive: Mental status NL, Mood NL, Memory Intact, Oriented x 3 Date of Service The patient was seen on 12/11/18. NOTE NAME: REGLA FIGUEREDO DATE OF : 1955 AGE: 63 SEX: M REPORT #: [id number] [facility] TECHNOLOGIST: ERIC DOCTOR: Silas Moses M.D. Ordered for Date&Time: 12/10/18 1108 cc: [~ rep ct ivnm] Service Date&Time: 12/10/18 1116 EXAMINATION REQUESTED: CT ABD & PELVIS W/O CONTRAST REASON FOR PATIENT VISIT: ESRD ON DIALYSIS; REASON FOR EXAM/COMMENT: r/o perf viscous CT abdomen and pelvis without IV or oral contrast: History: Rule out perforated viscus. Comparison CT study June 01, 2018. Also reviewed are images from March 10, 2016. CT findings: There is a large amount of portal venous gas again noted throughout the right and left lobe of the liver. In the abdomen there are multiple areas of intravascular gas and portal venous and mesenteric venous vascular structures. No free intraperitoneal air is seen. There is a moderate amount of colonic stool but no evidence of obstruction. No bowel wall thickening or pneumatosis is identified in the large or small intestine. There is a ventral hernia containing a small quantity of abdominal fat. There are atrophic bilateral iliac fossa renal transplant. Profound atrophy is seen in the [place] renal kidneys. Extensive vascular calcifications noted. The patient is status post removal of a right hip prosthesis for secondary infection. No soft tissue gas is seen outs [place] the abdomen. No focal splenic lesion is seen. There is a descending duodenal diverticulum. No gallbladder or pancreatic abnormality is seen. Impression: Large amount of portal venous gas suggesting bowel wall ischemia. However, no bowel wall perforation site is seen. No free intraperitoneal gas is noted. Vascular gas is seen in mesenteric vessels. There is some fairly prominent intramural gas in the wall of the stomach although most of this appears to be vascular as well . Similar findings were observed June 01, 2018. Findings were telephoned to the referring provider at the time of the study. Electronically Signed by Lalo Goodman MD 12/10/2018 08:34 P NAME: REGLA FIGUEREDO DATE OF : 1955 AGE: 63 SEX: M REPORT #: [id number] ROOM: ED TECHNOLOGIST: [id number] DOCTOR: CHANTELLE DUPREE DO Ordered for Date&Time: 06/01/18 0736 cc: [~ rep ct ivnm] Service Date&Time: 06/01/18 1663 EXAMINATION REQUESTED: CT ABD & PELVIS W/O CONTRAST REASON FOR PATIENT VISIT: ABDOMINAL PAIN REASON FOR EXAM/COMMENT: abdominal pain CT ABDOMEN AND PELVIS WITHOUT CONTRAST: HISTORY: Abdominal pain. COMPARISON: 06/16/2014 A small amount of free air is present scattered in the abdomen. Air is present in the portal venous system. The [place] kidneys are atrophic. The kidneys contain cysts and calcifications. The gallbladder, pancreas, spleen and adrenal glands are normal in appearance. There is no mass, adenopathy or free fluid. A 4.1 cm fat containing umbilical hernia is present. Diverticula are present in the descending colon. The visualized lungs are clear. The patient is status post left total hip replacement. This obscured the prostate gland and urinary bladder. The patient is status post removal of a right total hip replacement. A large fluid soft tissue density is present with associated bone fragmentation. There is thinning of the acetabulum. The adjacent musculature is atrophic. Diverticula are present in the descending and sigmoid colon. Bilateral atrophic transplanted kidneys are present in the iliac fossa. A small 1.1 cm right ventral abdominal hernia containing a nondilated loop of intestine is present in the right anterior pelvic subcutaneous tissue. Degenerative change is present in the spine. IMPRESSION: 1. The above findings are consistent with a perforated viscus. 2. Atrophic [place] kidneys. 3. Diverticulosis. 4. There is a 4.1 cm fat containing umbilical hernia. 5. There is a small 1.1 cm right ventral abdominal hernia containing a nondilated loop of intestine in the right anterior pelvic subcutaneous tissue. 6. The patient is status post right total hip replacement removal. Soft tissue and fluid density with bone fragmentation are present. This appears unchanged compared to the most recent CT hip examination. The results were discussed with Dr. Person at 08:30 a.m. this date. Electronically Signed by Michael Shi MD 06/01/2018 09:34 A Assessment/Plan Assessment 63-year-old male with end-stage renal disease and nausea and vomiting which started during hemodialysis who was evaluated and found to have air in the portal venous system. Patient has significant calcific plaque surrounding his celiac artery which is concerning for possible celiac artery stenosis as the etiology of his mesenteric ischemia and portal venous air. Plan Patient will require a CT angiogram to evaluate the celiac artery, superior m esenteric artery and inferior mesenteric artery for atherosclerotic arterial occlusive disease. Joey Vela MD Dec 11, 2018 22:34
[2018-12-11] MEDS ORDERED: ISOVUE-370 76% 100ML VIAL (Q9967) As Ordered ONE (23:14)
[2018-12-12] VITALS: BP 130/66
--- NOTE | 2018-12-12 00:13 | REPVR ---
EXAM: CT Angiography Abdomen and Pelvis With Contrast EXAM DATE/TIME: 12/11/2018 10:35 PM CLINICAL HISTORY: 63 years old, male; Condition or disease; Vascular insufficiency, intestinal; Additional info: Bowel ischemia TECHNIQUE: Axial computed tomographic angiography images of the abdomen and pelvis with intravenous contrast material, including non-contrast images if performed. MIP and/or 3D reconstructed images were created and reviewed. All CT scans at this facility use at least one of these dose optimization techniques: automated exposure control; mA and/or kV adjustment per patient size (includes targeted exams where dose is matched to clinical indication); or iterative reconstruction. Coronal and sagittal reformatted images were created and reviewed. CONTRAST: 100 ml of iso administered intravenously. COMPARISON: CT ABD PELVIS W/O CONTRAST 12/10/2018 11:08 AM FINDINGS: VASCULATURE: Venous structures: Linear filling defect in the proximal superior mesenteric vein may represent a nonocclusive thrombus. Aorta: Extensive atherosclerotic changes in the abdominal aorta and pelvic arteries. Celiac trunk and mesenteric arteries: Atherosclerotic changes at the origin of the celiac artery without significant stenosis. Small inferior mesenteric artery demonstrated. Renal arteries: Atherosclerotic changes at the origin of marked atrophy renal arteries. Right iliac arteries: No occlusion or significant stenosis. Right femoral/popliteal arteries: Moderate atherosclerosis and stenosis of the imaged proximal femoral artery. The popliteal artery was not imaged. Left iliac arteries: No occlusion or significant stenosis. Left femoral/popliteal arteries: Moderate atherosclerosis and stenosis of the imaged proximal femoral artery. The popliteal artery was not imaged. Portal Venous System: Substantial improvement in previously demonstrated portal venous gas with a few locules of gas remaining. Portal vein patent. ABDOMEN: Liver: Small cysts in the right lobe of the liver measure up to 9 mm. Gallbladder and bile ducts: Hydropic gallbladder demonstrating thickening of the gallbladder wall, mucosal enhancement. Clinical correlation to exclude acute gallbladder disease suggested. Pancreas: Borderline dilated pancreatic duct but otherwise unremarkable. No mass. No ductal dilation. Spleen: Mild splenomegaly. Adrenals: Unremarkable. No mass. Kidneys and ureters: Marked bilateral renal atrophy the [place] kidneys again demonstrated. Multiple renal cysts demonstrated bilaterally. Marked atrophy of the transplant in the left lower quadrant demonstrated. Stomach and bowel: There is increased feces throughout the colon consistent with constipation. Duodenal diverticulum. Appendix: No evidence of appendicitis. PELVIS: Bladder: Unremarkable. No mass. Reproductive: Unremarkable as visualized. ABDOMEN and PELVIS: Intraperitoneal space: See Kidneys And Ureters Finding. Bones/joints: Status post total hip replacement on the left. Status post removal of right hip prosthesis for infection with fluid in the operative bed. Infection should be excluded clinically. Soft tissues: Paraumbilical hernia demonstrated without incarceration. Lymph nodes: Unremarkable. No enlarged lymph nodes. IMPRESSION: 1. Marked bilateral renal atrophy the [place] kidneys again demonstrated. Multiple renal cysts demonstrated bilaterally. Marked atrophy of the transplant in the left lower quadrant demonstrated. 2. Substantial improvement in previously demonstrated portal venous gas with a few locules of gas remaining. 3. Hydropic gallbladder demonstrating thickening of the gallbladder wall, mucosal enhancement. Clinical correlation to exclude acute gallbladder disease suggested. 4. There is increased feces throughout the colon consistent with constipation. 5. Extensive atherosclerosis in the visualized abdominal arteries. No high-grade stenosis demonstrated. Moderate stenosis of the common femoral arteries bilaterally. Marked atrophy of the renal arteries. Electronically signed by: Bhupinder Gutierrez On 12/12/2018 00:12:46 AM
[2018-12-12 04:00] VITALS: BP 97/58
[2018-12-12] MEDS: LEVOTHYROXINE 100MCG TABLET (0.1MG) PO SCH (04:53)
[2018-12-12 05:39] LABS: BASO % 0.3 % (0.0-1.0); EOS # 0.1 10^3/uL (0.0-0.50); EOS % 3.5 % (0.0-3.0); HEMATOCRIT 30.5 % (42.0-52.0); HEMOGLOBIN 10.2 g/dl (13.5-17.5); LYMPH # 0.6 10^3/uL (1.5-4.5); LYMPH % 14.4 % (24.0-44.0); MEAN CORPUSCULAR HGB CONC 33.4 g/dl (32.0-36.5); MEAN CORPUSCULAR VOLUME 107.8 fl (80.0-96.0); MONO # 0.2 10^3/uL (0.0-0.8); MONO % 6.1 % (0.0-5.0); NEUTROPHILS % 75.2 % (36.0-66.0); PLATELET COUNT, AUTOMATED 108 10^3/uL (150-450); RED BLOOD COUNT 2.83 10^6/uL (4.30-6.10)
[2018-12-12 05:49] LABS: CREATININE FOR GFR 6.81 MG/DL (0.70-1.30); GLOMERULAR FILTRATION RATE 8.8 (>49); MAGNESIUM LEVEL 3.2 MG/DL (1.8-2.4); POTASSIUM SERUM 4.3 MEQ/L (3.5-5.1)
[2018-12-12] MEDS: SLF 3 ML SYR IV SCH ×3 (06:00→22:06)
[2018-12-12 08:00] VITALS: BP 130/73
[2018-12-12] MEDS ORDERED: DARBEPOETIN 100 MCG/0.5 ML *DIALYSIS* SYRINGE (J0882) IV SCH ×2 (08:00→09:30)
[2018-12-12] MEDS ORDERED: HEPARIN 1,000 UNITS/ML 10ML VIAL (FOR RADIOLOGY& DIALYSIS ONLY) IV ONE (10:30)
--- NOTE | 2018-12-12 11:12 | IPNPDOC ---
Subjective Date Seen The patient was seen on 12/12/18. Subjective Chief Complaint/HPI Patient is examined while he is getting dialysis. Flatulence were recorded. He denied any abdominal pain. No other complaints were reported. Gastrointestinal: Denies: Abdominal Pain Objective Physical Examination General Exam: Positive: Alert, Cooperative, No Acute Distress Eye Exam: Positive: PERRLA, Conjunctiva & lids normal ENT Exam: Positive: Atraumatic, Mucous membr. moist/pink, Nares Patent, Ext Auditory Canal Nml Neck Exam: Positive: Supple Chest Exam: Positive: Normal air movement Abdomen Exam: Positive: Soft, Other (Non-distended); Negative: Tenderness Skin Exam: Positive: Nl turgor and temperature, Other skin issue (AV fistula site noted on left arm) Neuro Exam: Positive: Normal Speech Psych Exam: Positive: Mental status NL, Mood NL, Memory Intact, Oriented x 3 Assessment /Plan Problems (1) Intestinal ischemia Status: Acute Problem Specific Plan: Consult Specialist, Monitor Clinically Problem Text: Likely d/t temporary hypotensive period with SBP<60. CTA abdomen showed intramural gas in the stomach wall as well as portal venous gas; CTA showed atheroscerlosis but no stenosis of the abdominal artery noted. Abdominal pain and nausea resolved. Pt appeared to be stable. On clear liquid diet and IV D5 1/2NS. Zofran, Morphine IV, and Percocet PRN nausea and pain. Continue to monitor the pt. (2) ESRD on dialysis Status: Chronic Response to Treatment: Stable Problem Text: Pt has ESRD on scheduled dialysis T, Th, and Sat. 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 Nephrology team is following. Will continue to follow up with BMP and cont to monitor the pt (3) Cholecystitis Problem Text: CTA 12/12/18 showed thickening of gallbladder questionable for cholecystitis. Recommend starting patient on antibiotics covered for cholecystitis. Pt will follow up with surgery team as an outpatient for interval cholecystectomy (4) Anemia Status: Chronic Problem Text: PMH of chronic anemia, likely 2/2 anemia of chronic disease vs CKD anemia. Hg appears to be stable. Cont to follow up with CBC. Cont to monitor (5) GERD (gastroesophageal reflux disease) Status: Chronic Problem Text: Continue home medication Protonix (6) Hypothyroidism Status: Chronic Problem Text: Continue home medication levothyroxine Plan/VTE VTE Prophylaxis Ordered?: Yes VS, I&O, 24H, Fishbone Vital Signs/I&O Vital Signs Date Time Temp Pulse Resp B/P (MAP) Pulse Ox O2 Delivery O2 Flow Rate FiO2 12/12/18 08:00 97.6 84 20 130/73 (92) 98 12/10/18 18:15 Room Air I&O- Last 24 Hours up to 6 AM 12/12/18 05:59 Intake Total 760 ml Output Total 0 ml Balance 760 ml Laboratory Data 24H LABS Laboratory Tests 2 12/12/18 05:19: Immature Granulocyte % (Auto) 0.5, White Blood Count 4.0, Red Blood Count 2.83L, Hemoglobin 10.2L, Hematocrit 30.5L, Mean Corpuscular Volume 107.8H, Mean Corpuscular Hemoglobin 36.0H, Mean Corpuscular Hemoglobin Concent 33.4, Red Cell Distribution Width 12.7, Platelet Count 108L, Neutrophils (%) (Auto) 75.2H, Lymphocytes (%) (Auto) 14.4L, Monocytes (%) (Auto) 6.1H, Eosinophils (%) (Auto) 3.5H, Basophils (%) (Auto) 0.3, Neutrophils # (Auto) 3.0, Lymphocytes # (Auto) 0.6L, Monocytes # (Auto) 0.2, Eosinophils # (Auto) 0.1, Basophils # (Auto) 0.0, Nucleated Red Blood Cells % (auto) 0.0, Anion Gap 10, Glomerular Filtration Rate 8.8L, Blood Urea Nitrogen 79H, Creatinine 6.81H, Sodium Level 133L, Potassium Level 4.3, Chloride Level 97L, Carbon Dioxide Level 26, Calcium Level 8.0L, Magnesium Level 3.2H CBC/BMP Laboratory Tests 12/12/18 05:19 Red Blood Count 2.83 L, Mean Corpuscular Volume 107.8 H, Mean Corpuscular Hemoglobin 36.0 H, Mean Corpuscular Hemoglobin Concent 33.4, Red Cell Distribution Width 12.7, Neutrophils (%) (Auto) 75.2 H, Lymphocytes (%) (Auto) 14.4 L, Monocytes (%) (Auto) 6.1 H, Eosinophils (%) (Auto) 3.5 H, Basophils (%) (Auto) 0.3, Neutrophils # (Auto) 3.0, Lymphocytes # (Auto) 0.6 L, Monocytes # (Auto) 0.2, Eosinophils # (Auto) 0.1, Basophils # (Auto) 0.0, Calcium Level 8.0 L Microbiology Microbiology 12/10/18 Blood Culture - Preliminary, Resulted No Growth after 48 hours. All Specime... 12/10/18 Blood Culture - Preliminary, Resulted No Growth after 48 hours. All Specime... JEANNETTE MUAÑA DO Dec 12, 2018 11:12
--- NOTE | 2018-12-12 11:34 | CR ---
DATE OF CONSULTATION: 12/11/2018 REQUESTING PHYSICIAN: Dr. Michael Romeo CONSULTING PHYSICIAN: Dr. Garcia REASON FOR CONSULTATION: Management of end-stage renal disease on hemodialysis. CHIEF COMPLAINT: Patient was sent from the dialysis center yesterday because of low blood pressures, feeling weak and tired. HISTORY OF PRESENT ILLNESS: Mr. Jc Chen is a 63-year-old male with past medical history of end- stage renal disease on hemodialysis, history of diverticulosis, and peptic ulcer disease. Well known to nephrology service from previous hospitalization and from outpatient dialysis center. Patient was being dialyzed yesterday and during dialysis he felt very weak and tired, he had abdominal pain, and he had low blood pressure so he could not finish his dialysis, he only got about 3 hours of dialysis and about half an hour was left so his dialysis was stopped, patient was sent to the emergency room from further evaluation. Patient got a CAT scan of the abdomen and pelvis done which showed pneumatosis intestinalis suspicious for bowel wall ischemia, patient was admitted under the hospitalist service and nephrology service was called for further help in the management of this patient with end-stage renal disease and hemodialysis. I saw and evaluated the patient today afternoon at the bedside. He was being kept nothing by mouth. He is on IV fluids. He reports that he is feeling slightly better today as compared with yesterday. Surgical service is already on board for this patient. PAST MEDICAL HISTORY: End-stage renal disease on hemodialysis. 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 History of tongue cancer status post surgery in 2010. History of osteomyelitis of the right clavicle. Status post right kidney transplant times two. Hypothyroidism. Interstitial lung disease. Glomerular nephritis as a child. History of diverticulosis. Anemia and end-stage renal disease. PAST SURGICAL HISTORY: Status post tongue resection for cancer of the tongue. Status post removal of the prosthetic hip and spacer placement on the right side. ALLERGIES: Patient is allergic to HYDROCHLOROTHIAZIDE and METHYLDOPA. FAMILY HISTORY: No significant family history of end-stage renal disease requiring hemodialysis. SOCIAL HISTORY: Patient denies any illicit drug abuse, alcohol abuse, or smoking. REVIEW OF SYSTEMS: CONSTITUTIONAL: Patient reported feeling weak and tired when he came in. EYES: He denies any blurry vision, double vision. ENT: Patient reports that he only drinks liquid diet, Nepro and he has history of tongue cancer status post neck dissection. CARDIOVASCULAR: He denies any chest pain or palpitation. RESPIRATORY: He denies any shortness of breath or cough. GI: He reports abdominal pain and cramping. GENITOURINARY: He denies any dysuria or hematuria. MUSCULOSKELETAL: He denies any muscle aches or pains. RENAL CASE MANAGER: He denies any strokes or seizures. HEMATOLOGICAL/ONCOLOGICAL: He denies any easy bleeding or bruising. SKIN: He denies any rashes or ulcers. ENDOCRINE: He reports history hyperthyroidism. All other review of systems is negative. PHYSICAL EXAMINATION: GENERAL: The patient is awake, alert, oriented times three, lying in bed. VITAL SIGNS: Temperature is 99.4 degrees Fahrenheit, blood pressure 112/65, pulse is 74, respiratory rate of 18, saturating 94% on room air. HEAD AND NECK EXAM: Extraocular muscles intact. Patient has an incision on the chin down to his neck from previous neck dissection. CARDIOVASCULAR: S1, S2. Regular rate. EXTREMITIES: No edema of the bilateral lower extremities. RESPIRATORY: Chest is clear to auscultation bilaterally. Bilateral good air entry. No rales or rhonchi. ABDOMEN: Soft, positive bowel sounds, no organomegaly was noted. MUSCULOSKELETAL: No clubbing or cyanosis. Pulses are 2+. CENTRAL NERVOUS SYSTEM (RENAL CASE MANAGER): No focal deficit. Power is 5/5 in all extremities. LABORATORY REVIEW: CBC showed a WBC of 4.1, hemoglobin is 9.8, platelets of 113. BMP showed sodium of 137, potassium 4, chloride 100, bicarbonate 29, BUN 56, creatinine is 5.2, lactic acid 2.2 on arrival and repeat was 1. Magnesium is 3.2. Calcium 8.3. MICROBIOLOGY: Blood cultures are negative so far. IMAGING: CAT scan of the abdomen and pelvis without contrast showed a large amount of portal venous gas suggesting bowel wall ischemia. No bowel wall perforation was seen. Vascular gas was seen in mesenteric vessel as well. CURRENT INPATIENT MEDICATIONS: Patient's medications are all reviewed by me. I changed his IV fluid to D5 half normal saline at 40 mL an hour. He is on levothyroxine 300 mcg by mouth daily, Tylenol as needed, multivitamin one tablet daily, Zofran as needed, oxycodone one tablet every 4 hours moderate pain, Protonix 40 mg daily, pravastatin 40 mg at bedtime, vitamin D 1000 units by mouth daily. ASSESSMENT: 63-year-old male with history of end-stage renal disease on hemodialysis, history of neck dissection for tongue cancer, currently on liquid diet with Napro, admitted this time with bowel ischemic. PLAN: 1. End-stage renal disease on hemodialysis. Patient's regular dialysis days are Sunday, , and Sunday. He got almost 3 hours of dialysis yesterday. No urgent need of hemodialysis today. Next hemodialysis will be done as per his regular schedule. 2. Ischemic bowel. Patient is currently on IV fluids, he is nothing by mouth. He is not on any antibiotics at this point. If his diet is started by surgical service, then IV fluids should be stopped. 3. Hypothyroidism. Continue home dose of levothyroxine 300 mcg by mouth daily 4. Chronic pain and opioid dependence. Continue home dose of oxycodone. 5. Anemia secondary to end-stage renal disease. I am going to start him on Aranesp 200 microgram IV with hemodialysis. 6. Nutrition. Patient takes Nepro cans at home. If his diet is started he will need to start Nepro. Thank you for involving me in the care of this patient. I shall be happy to follow the patient along with you tomorrow morning. STIVEN
[2018-12-12 13:24] VITALS: BP 116/68
[2018-12-12] MEDS: MULTIVITAMINS/MINERALS THERAP 1 TAB PO SCH (13:51)
[2018-12-12] MEDS: SENOKOT S TAB PO SCH ×2 (13:51→22:04)
[2018-12-12] MEDS: PANTOPRAZOLE 40MG TAB (PROTONIX) PO SCH (13:51)
[2018-12-12] MEDS: VITAMIN D 1,000 INTERNATIONAL UNITS TABLET PO SCH (13:51)
[2018-12-12 15:46] VITALS: BP 96/43
--- NOTE | 2018-12-12 15:54 | IPNPDOC ---
Text Note Date of Service The patient was seen on 12/12/18. NOTE Subjective: Patient seen and examined at bedside. No acute overnight events reported. Patient generally feeling better today. Objective: General: NAD, sitting comfortably at edge of bed HEENT: NC/AT, EOMI, s/p tongue surgery, well healed surgical scar on chin Lungs: CTA B/L Heart: +S1S2, RRR Abd: soft, Ext: no edema, LUE A/V fistula A/P: 63 yo male for abdominal pain with extensive medical history: #Abd pain - CT suggestive of ischemic bowel - vascular surgery c/s appreciated - surgical c/s appreciated - imaging shows improvement #cholecystitis - medical management for now - renal dosing zosyn - o/p follow up for possible choly - follow as per surgery #ESRD/HD s/p two failed kidney transplants - TTS schedule - follow as per nephrology - assistance appreciated #chronic anemia - started on aranesp #tongue cancer 2010 - s/p resection #chronic osteomyelitis of the right clavicle with MSSA #hypothyroidism #GERD/PUD #ILD #dvt ppx heparin VS,Fishbone, I+O VS, Fishbone, I+O Laboratory Tests 12/12/18 05:19 Red Blood Count 2.83 L, Mean Corpuscular Volume 107.8 H, Mean Corpuscular Hemoglobin 36.0 H, Mean Corpuscular Hemoglobin Concent 33.4, Red Cell Distribution Width 12.7, Neutrophils (%) (Auto) 75.2 H, Lymphocytes (%) (Auto) 14.4 L, Monocytes (%) (Auto) 6.1 H, Eosinophils (%) (Auto) 3.5 H, Basophils (%) (Auto) 0.3, Neutrophils # (Auto) 3.0, Lymphocytes # (Auto) 0.6 L, Monocytes # (Auto) 0.2, Eosinophils # (Auto) 0.1, Basophils # (Auto) 0.0, Calcium Level 8.0 L Vital Signs Date Time Temp Pulse Resp B/P (MAP) Pulse Ox O2 Delivery O2 Flow Rate FiO2 12/12/18 15:46 98.6 97 18 96/43 (60) 100 12/10/18 18:15 Room Air I&O- Last 24 Hours up to 6 AM 12/12/18 06:00 Intake Total 760 ml Output Total 0 ml Balance 760 ml LALDIN,MARIAN S. MD Dec 12, 2018 15:51
[2018-12-12] MEDS: PIPERACILLIN/TAZOBACTAM SOD 2.25 GM in D5W MINI-BAG PLUS 50 ML IV SCH (16:58)
[2018-12-12 18:59] VITALS: BP 115/65
[2018-12-12] MEDS: PRAVASTATIN 20 MG TAB PO SCH (22:05)
[2018-12-13] MEDS: PIPERACILLIN/TAZOBACTAM SOD 2.25 GM in D5W MINI-BAG PLUS 50 ML IV SCH ×2 (00:04→10:19)
[2018-12-13 04:45] VITALS: BP 98/53
[2018-12-13] MEDS: SLF 3 ML SYR IV SCH ×2 (05:31→10:19)
[2018-12-13] MEDS: LEVOTHYROXINE 100MCG TABLET (0.1MG) PO SCH (05:31)
[2018-12-13 05:41] LABS: BASO % 0.3 % (0.0-1.0); EOS # 0.1 10^3/uL (0.0-0.50); EOS % 3.8 % (0.0-3.0); HEMOGLOBIN 9.3 g/dl (13.5-17.5); LYMPH # 0.5 10^3/uL (1.5-4.5); LYMPH % 15.4 % (24.0-44.0); MEAN CORPUSCULAR HEMOGLOBIN 35.9 pg (27.0-33.0); MEAN CORPUSCULAR HGB CONC 33.2 g/dl (32.0-36.5); MEAN CORPUSCULAR VOLUME 108.1 fl (80.0-96.0); MONO # 0.2 10^3/uL (0.0-0.8); MONO % 7.5 % (0.0-5.0); NEUTROPHILS # 2.3 10^3/uL (1.8-7.7); PLATELET COUNT, AUTOMATED 114 10^3/uL (150-450); RED BLOOD COUNT 2.59 10^6/uL (4.30-6.10); WHITE BLOOD COUNT 3.2 10^3/uL (4.0-10.0)
[2018-12-13 05:55] LABS: CREATININE FOR GFR 4.47 MG/DL (0.70-1.30); GLOMERULAR FILTRATION RATE 14.4 (>49); MAGNESIUM LEVEL 2.7 MG/DL (1.8-2.4); POTASSIUM SERUM 3.8 MEQ/L (3.5-5.1)
[2018-12-13] MEDS ORDERED: CIPR500T3 PO (07:51)
[2018-12-13] MEDS ORDERED: CLOP75TA2 PO (07:51)
[2018-12-13] MEDS ORDERED: METR-201 PO (07:51)
[2018-12-13 08:00] VITALS: BP 119/59
--- NOTE | 2018-12-13 08:06 | DS.PDOC ---
Discharge Summary General Date of Admission Dec 10, 2018 at 16:36 Date of Discharge 12/13/18 Specialist/Consultants Involve: Joey Vela MD Specialist/Consultants Involve Dr. Lees, Dr. Garcia Discharge Summary PROCEDURES PERFORMED DURING STAY: [None]. DISCHARGE DIAGNOSES: 1. Abdominal pain - multifactorial etiology 2. ischemic bowel? SECONDARY DIAGNOSES: 1. ESRD/HD 2. cholecystitis 3. anemia 4. tongue cancer s/p resection 5. chronic MSSA osteomyelitis of the right clavicle 6. hypothyroidism 7. ILD 8. GERD/PUD COMPLICATIONS/CHIEF COMPLAINT: Esrd On Dialysis;. HISTORY OF PRESENT ILLNESS:This is an 85 yo male with extensive PMHx who presented to the Ed for umbilical (hernia) pain after HD. Patient was seen before for similar complaint. Per patient and his - He was evaluated and was found to have air in abd; however surgery done and nothing was found. Imaging revealed air in the portal vein. ED contacted surgery team. Patient said he is not interested in doing surgery at this time, unless it is for a kidney transplant . He denied fever chills , chest pain, sob. Patient cannot eat solids due to previous surgery but he takes liquid. HOSPITAL COURSE: Patient admitted for further evaluation and treatment of abdomi nal pain. Found to have findings of ischemic bowel with free air on imaging. General surgery and vascular surgery consulted for further assistance. Found to have cholecystitis, treated with antibiotics, and outpatient follow up for elective cholecystectomy. Suspicion for celiac/SMA disease. Recommended to be discharged with ASA/plavix therapy by vascular, with outpatient follow up. DISCHARGE MEDICATIONS: Please see below. ALLERGIES: Please see below. PHYSICAL EXAMINATION ON DISCHARGE: VITAL SIGNS: Please see below. General: NAD, sitting comfortably at edge of bed HEENT: NC/AT, EOMI, s/p tongue surgery, well healed surgical scar on chin Lungs: CTA B/L Heart: +S1S2, RRR Abd: soft, NT Ext: no edema, LUE A/V fistula LABORATORY DATA: Please see below. ACTIVITY: [As tolerated]. DISCHARGE PLAN: Discharge home ITEMS TO FOLLOWUP ON ON OUTPATIENT: 1. Follow up with PCP in 3-5 days. 2. Follow up with general surgery in 7-10 days. 3. Follow up with vascular surgery in 7-10 days. 4. Follow up nephrology as scheduled. DISCHARGE CONDITION: [Stable]. TIME SPENT ON DISCHARGE: Greater than 30 minutes. Vital Signs/I&Os Vital Signs Date Time Temp Pulse Resp B/P (MAP) Pulse Ox O2 Delivery O2 Flow Rate FiO2 12/13/18 04:45 98.2 75 18 98/53 (68) 97 12/10/18 18:15 Room Air I&O- Last 24 Hours up to 6 AM 12/13/18 05:59 Intake Total 1250 ml Output Total 2600 ml Balance -1350 ml Laboratory Data Labs 24H Laboratory Tests 2 12/13/18 05:14: Immature Granulocyte % (Auto) 0.0, White Blood Count 3.2L, Red Blood Count 2.59L, Hemoglobin 9.3L, Hematocrit 28.0L, Mean Corpuscular Volume 108.1H, Mean Corpuscular Hemoglobin 35.9H, Mean Corpuscular Hemoglobin Concent 33.2, Red Cell Distribution Width 13.1, Platelet Count 114L, Neutrophils (%) (Auto) 73.0H, Lymphocytes (%) (Auto) 15.4L, Monocytes (%) (Auto) 7.5H, Eosinophils (%) (Auto) 3.8H, Basophils (%) (Auto) 0.3, Neutrophils # (Auto) 2.3, Lymphocytes # (Auto) 0.5L, Monocytes # (Auto) 0.2, Eosinophils # (Auto) 0.1, Basophils # (Auto) 0.0, Nucleated Red Blood Cells % (auto) 0.0, Anion Gap 8, Glomerular Filtration Rate 14.4L, Blood Urea Nitrogen 47H, Creatinine 4.47H, Sodium Level 135L, Potassium Level 3.8, Chloride Level 97L, Carbon Dioxide Level 30, Calcium Level 8.0L, Magnesium Level 2.7H CBC/BMP Laboratory Tests 12/13/18 05:14 Red Blood Count 2.59 L, Mean Corpuscular Volume 108.1 H, Mean Corpuscular Hemoglobin 35.9 H, Mean Corpuscular Hemoglobin Concent 33.2, Red Cell Distribution Width 13.1, Neutrophils (%) (Auto) 73.0 H, Lymphocytes (%) (Auto) 15.4 L, Monocytes (%) (Auto) 7.5 H, Eosinophils (%) (Auto) 3.8 H, Basophils (%) (Auto) 0.3, Neutrophils # (Auto) 2.3, Lymphocytes # (Auto) 0.5 L, Monocytes # (Auto) 0.2, Eosinophils # (Auto) 0.1, Basophils # (Auto) 0.0, Calcium Level 8.0 L Microbiology Microbiology 12/10/18 Blood Culture - Preliminary, Resulted No Growth after 48 hours. All Specime... 12/10/18 Blood Culture - Preliminary, Resulted No Growth after 48 hours. All Specime... Discharge Medications Scheduled (Nepro with Carb Steady) 1 Liq Liq, 1 LIQ PO 7XD, (Reported) (Florajen3) 1 Cap Cap, 1 CAP PO DAILY, (Reported) (Heparin Sodium) 10,000 Unit/10 Ml Inj, 1 DOSE IV HD, (Reported) Aspirin (Aspirin) 81 Mg Tab, 81 MG PO 4XWK, (Reported) TAKES ON NON-DIALYSIS DAYS, SUN/SUN/SUN/FRI Bisacodyl (Bisacodyl EC) 5 Mg Tab, 5 MG PO DAILY, (Reported) Ciprofloxacin HCl (Ciprofloxacin HCl) 500 Mg Tab, 1 TAB PO BID Clopidogrel Bisulfate (Clopidogrel) 75 Mg Tab, 1 TAB PO DAILY Levothyroxine Sodium (Synthroid) 0.2 Mg Tab, 200 MCG PO DAILY, (Reported) TAKES WITH 100MCG DOSE FOR TOTAL DOSE OF 300MCG DAILY Levothyroxine Sodium (Synthroid) 50 Mcg Tab, 100 MCG PO DAILY, (Reported) TAKES WITH 200MCG DOSE FOR TOTAL DOSE OF 300MCG DAILY Methoxy Polyethylene Glycol-Ep (Mircera) 30 Mcg/0.3 Ml Suzanne, 1 DOSE IV HD, (Reported) Metronidazole (Metronidazole) 500 Mg Tab, 1 TAB PO TID Multivitamins *[facility] STOCKED* (Thera M Plus *[facility] STOCKED*) 1 Tab Tab, 1 TAB PO EBONI LY, (Reported) Pravastatin Sodium (Pravastatin Sodium) 20 Mg Tab, 20 MG PO QHS, (Reported) Sevelamer Carbonate (Renvela Oral Suspension) 2.4 Gm Mango, 7.2 GM PO WM, (Reported) Vitamin D (Vitamin D) 1,000 Unit Cap, 1,000 UNIT PO DAILY, (Reported) Scheduled PRN (Oxycodone/Acetaminophen 7.5-325 mg) 1 Tab Tab, 1 TAB PO Q6H PRN for PAIN, (Reported) Cimetidine (Tagamet Hb) 200 Mg Tab, 200 MG PO BID PRN for HEARTBURN, (Reported) Allergies Coded Allergies: Hydrochlorothiazide (Verified Allergy, Unknown, 12/10/18) UNKNOWN REACTION Methyldopa (Verified Allergy, Unknown, 12/10/18) UNKNOWN REACTION MARIAN GABRIEL MD Dec 13, 2018 08:06
--- NOTE | 2018-12-13 08:50 | IPN ---
DATE OF SERVICE: 12/12/2018 SUBJECTIVE: Patient was seen and examined at the bedside today morning during hemodialysis procedure. His IV fluids were stopped yesterday. He is currently taking his Nepro liquid diet. He reports abdominal pain is improving. OBJECTIVE: Vital signs: Temperature is 97.8 degrees Fahrenheit, blood pressure 130/73, pulse 84, respiratory rate of 20, saturating 98% on room air. Intake and output: Urine output is not recorded. Weight on the bed scale is 83.8 kg. PHYSICAL EXAMINATION: General: Patient is awake, alert, oriented times three, lying in bed, no apparent distress. Head and neck exam: Extraocular muscles intact. Pupils equally round and reactive to light. Patient has large incision prashant from old radical neck dissection. Cardiovascular: S1, S2. Regular rate. No edema of the bilateral lower extremities. Respiratory: Chest is clear to auscultation bilaterally. Bilateral equal air entry. No rales or rhonchi. Abdomen is soft, positive bowel sounds. Nontender. No organomegaly. Musculoskeletal: No clubbing or cyanosis. Pulses are 2+. Central nervous system: No focal deficit. Power is 5/5 in all extremities. LAB REVIEW: CBC showed WBC 4, hemoglobin 10.2, platelets are 108. BMP showed sodium 135, potassium 4.3, chloride 97, bicarbonate 26, BUN 79, creatinine 6.8. Calcium is 8, magnesium is 3.2. Microbiology: Blood cultures are all negative. IMAGING: CT angiogram of the abdomen was done yesterday which showed marked bilateral renal atrophy of the [place] kidneys. Substantial improvement of the previously demonstrated portal venous catheter. Hydropic gallbladder demonstrating thickening of the gallbladder wall, mucosal enhancement. Increased feces throughout the colon consistent with constipation. No high grade stenosis was noted. CURRENT INPATIENT MEDICATIONS: Patient's medications were all reviewed by me. He continues to be on IV Zosyn. IV fluids have been stopped. No other change in medications today as compared with yesterday. ASSESSMENT AND PLAN: 1. End stage renal disease on hemodialysis. Patient's regular dialysis days are Sunday, , Sunday. He is being dialyzed according to his regular schedule. Ultrafiltration goal will be at least 2.5 liters as tolerated by his blood pressure. 2. Abdominal pain. Patient got CT angiogram done of the abdomen yesterday which showed improvement in the gas in the bowel, however, gallbladder looks inflamed and patient has constipation. Surgical service is already involved and they are planning elective cholecystectomy as an outpatient. 3. Hypothyroidism. Continue current dose of levothyroxine 300 mcg by mouth daily. 4. Anemia secondary to end stage renal disease. Continue current dose of Aranesp 200 mcg IV with hemodialysis. 5. Nutrition. Patient drinks Nepro at home. Continue Nepro liquid diet. Patient is tolerating the diet at this point without any pain.
[2018-12-13] MEDS: SENOKOT S TAB PO SCH (09:00)
[2018-12-13] MEDS ORDERED: CLOPIDOGREL 75 MG TAB PO SCH (09:00)
[2018-12-13] MEDS: PANTOPRAZOLE 40MG TAB (PROTONIX) PO SCH (10:19)
[2018-12-13] MEDS: MULTIVITAMINS/MINERALS THERAP 1 TAB PO SCH (10:19)
[2018-12-13] MEDS: VITAMIN D 1,000 INTERNATIONAL UNITS TABLET PO SCH (10:19)
--- NOTE | 2018-12-14 08:05 | IPN ---
DATE OF SERVICE: 12/13/2018 SUBJECTIVE: Patient was seen and examined at the bedside today morning. He is afebrile and hemodynamically stable. He reports his pain in the abdomen has improved. He is tolerating the liquid diet. He was dialyzed yesterday, 2.6 liters of fluid was removed. He reports that he is getting ready to be discharged today. OBJECTIVE: Vital Signs: Temperature is 97.8 degrees Fahrenheit, blood pressure 119/59, pulse 78, respiratory rate of 18, saturating 99% on room air. Intake and Output: Ultrafiltration with hemodialysis was 2.6 liters yesterday. Weight on the bed scale is 80.9 kg. PHYSICAL EXAMINATION: General: Patient is awake, alert, oriented times three, sitting up in the bed, in no apparent distress. Head and Neck Exam: Extraocular muscles intact. Pupils equally round and reactive to light. Large incision prashant from his chin up to the neck from a right sided radical neck dissection. Cardiovascular: S1 and S2. Regular rate. No edema of the bilateral lower extremities. Respiratory: Chest is clear to auscultation bilaterally. Bilateral equal air entry. No rales or rhonchi. Abdomen is soft, positive bowel sounds. Nontender. No organomegaly. Musculoskeletal: No clubbing or cyanosis. Pulses are 2+. Central Nervous System: No focal deficit. Power is 5/5 in all extremities. LAB REVIEW: CBC showed a WBC of 3.2, hemoglobin 9.3, platelets of 114. BMP showed sodium 135, potassium 3.8, chloride 97, bicarbonate 30, BUN 47, creatinine 4.7, calcium is 8, magnesium is 2.7. CURRENT INPATIENT MEDICATIONS: Patient's medications were all reviewed by me. There is no change in medications today as compared with yesterday. His IV antibiotics have been stopped. ASSESSMENT AND PLAN: 1. End stage renal disease on hemodialysis. Patient's regular dialysis days are Sunday, , Sunday. He was dialyzed yesterday. Next hemodialysis session will be tomorrow as outpatient. 2. Abdominal pain. Patient is on IV antibiotics which are being switched to oral antibiotic. He was seen by the surgical service. Plan is to possibly due an elective cholecystectomy as outpatient. Ischemia has resolved. 3. Anemia and end stage renal disease. Hemoglobin is stable. The rest of the anemia management will be done as outpatient. 4. Disposition. It is okay to discharge the patient from a nephrology standpoint. He will be followed up by nephrology as outpatient at the dialysis center.
== END 2018-12-13 12:00 | disposition home or self-care (01) | DRG 393 ==
LOC: EDBD 09:39 → M ED 09:39 → M ED INP 16:36 → M PCU 18:42
PROVIDERS: ADMIT Internal Medicine; ATTEND Internal Medicine
PROC: 5A1D70Z Performance of Urinary Filtration, Intermittent, Less than 6 Hours Per Day (ICD-10-PCS; principal; 2018-12-12)
DX: K55.059 Acute (reversible) ischemia of intestine, part and extent unspecified (principal); N18.6 End stage renal disease; J84.9 Interstitial pulmonary disease, unspecified; M86.611 Other chronic osteomyelitis, right shoulder; K81.0 Acute cholecystitis; K21.9 Gastro-esophageal reflux disease without esophagitis; G47.00 Insomnia, unspecified; E03.9 Hypothyroidism, unspecified; K59.00 Constipation, unspecified; D63.1 Anemia in chronic kidney disease; Z99.2 Dependence on renal dialysis; Z85.810 Personal history of malignant neoplasm of tongue; Z98.42 Cataract extraction status, left eye; Z98.41 Cataract extraction status, right eye; Z87.891 Personal history of nicotine dependence; Z79.82 Long term (current) use of aspirin; Z79.899 Other long term (current) drug therapy

== ENCOUNTER → 2019-01-29 | Outpatient (CLI) | payer MEDICARE, OTHER ==
[~2019-01-29] MED LIST changes: -/PANT40TA PO; -ASPI81CH PO; +ASPI81CH49 PO; +BUPIVACAINE HCL 0.5% 10 ML VIAL As Ordered ONE; +CIPR500T3 PO; +CLOP75TA2 PO; +D-10TAB3 PO; +HEPARIN 1,000 UNITS/ML 10ML VIAL (FOR RADIOLOGY& DIALYSIS ONLY) As Ordered ONE; +ISOVUE-300 61% 50ML VIAL (Q9967) As Ordered ONE; +KONS100P4 PO; +LEVO2TA PO; +LIDOCAINE 2% MDV 20 ML VIAL As Ordered ONE; -METAPKT PO; -METR-201 PO; +METR-265 PO; +MIDAZOLAM INJ 2 MG/2 ML VIAL (J2250) As Ordered ONE; +MIRC30SO IV; +OXYC1TAB15 PO; -PERCOCET PO; +PROT1TAB2 PO; +PROTAMINE SULF INJ 50 MG/5 ML VIAL (J2720) As Ordered ONE; +SYNT25TA PO; +SYNT50TA PO; +TAGA200T3 PO; +TH DTAB2 PO; +VENO20IN IV; +[UNRECOGNIZED DRUG - CODE] IV; +diphenhydrAMINE INJ 50MG/ML VIAL (J1200) As Ordered ONE; +fentaNYL 100 MCG/2 ML INJECTION (J3010) As Ordered ONE
--- NOTE | 2019-02-05 13:21 | REPIR ---
DATE OF PROCEDURE: 01/29/2019 PREOPERATIVE DIAGNOSES: End-stage renal disease with aneurysmal degeneration, abdominal pain. POSTOPERATIVE DIAGNOSES: End-stage renal disease with aneurysmal degeneration, abdominal pain. PROCEDURE: Aortogram, iliofemoral angiogram, left brachiocephalic arteriovenous fistulogram, selective left brachial artery catheter placement with angiogram. ATTENDING SURGEON: Dr. Katy Vela TRANSPORTATION EQUIPMENT PAINTER: Carey Haas and Farnaz Lopez ANESTHESIA: Local with 4 mL of 2% lidocaine mixed with 0.5% Marcaine. FLUORO TIME: 6.0 minutes. CONTRAST: 16.5 mL HEPARIN: None. COMPLICATIONS: None. DRAINS: None. SPECIMENS: None. IMPLANTS: None. INDICATION: The patient is a 63-year-old male with end-stage renal disease who also has episodes of abdominal pain and is noted to have air within the biliary tree. The patient will undergo a mesenteric angiogram and fistulogram. Risks, benefits and alternative treatment options were discussed with the patient. DESCRIPTION OF PROCEDURE: The patient was taken to the angiography suite, placed supine on the angiography room table and then prepped and draped in a standard surgical fashion. The left brachiocephalic arteriovenous fistula was cannulated. Catheter placed in the aorta and aortogram performed showing no stenosis in the celiac or superior mesenteric arteries. Catheter was removed and placed in the left brachial artery and an angiogram was performed showing the fistula be widely patent with no intervention required. Catheters and wires were removed. The sheath was removed and a 2-0 Prolene suture placed at the puncture site for hemostasis. Dressings were then applied. The patient tolerated the procedure well. All instrument and needle counts were correct at the end the case. There were no complications. Dr. Vela was present for and directed the entire case. The patient was transferred to the holding area and subsequently discharged in stable condition.
== END | disposition home or self-care (01) ==
LOC: M IRPRO 06:32
PROVIDERS: ATTEND Surgery Vascular Surgery
DX: N18.6 End stage renal disease (principal); R10.9 Unspecified abdominal pain
CPT/HCPCS: 36200; 36901; 75625; C1769; C1887; C1894; Q9967

== ENCOUNTER → 2019-02-12 | Outpatient (CLI) | payer MEDICARE, OTHER ==
[~2019-02-12] MED LIST changes: -BUPIVACAINE HCL 0.5% 10 ML VIAL As Ordered ONE; -HEPARIN 1,000 UNITS/ML 10ML VIAL (FOR RADIOLOGY& DIALYSIS ONLY) As Ordered ONE; -ISOVUE-300 61% 50ML VIAL (Q9967) As Ordered ONE; -LIDOCAINE 2% MDV 20 ML VIAL As Ordered ONE; -MIDAZOLAM INJ 2 MG/2 ML VIAL (J2250) As Ordered ONE; -PROTAMINE SULF INJ 50 MG/5 ML VIAL (J2720) As Ordered ONE; -diphenhydrAMINE INJ 50MG/ML VIAL (J1200) As Ordered ONE; -fentaNYL 100 MCG/2 ML INJECTION (J3010) As Ordered ONE
[2019-02-13 14:36] LABS: PSA TOTAL 0.1 ng/mL (0.0-4.0)
== END ==
LOC: M SMT 10:46
PROVIDERS: ATTEND Internal Medicine Nephrology
DX: Z01.818 Encounter for other preprocedural examination (principal)

== ENCOUNTER 2019-02-24 05:46 | Inpatient (IN) | payer MEDICARE, OTHER ==
[2019-02-24] VITALS (7 sets, daily range): BP systolic 102–130; BP diastolic 55–63
[~2019-02-24] VITALS: Ht 172.7 cm; Wt 81.6 kg
[2019-02-24] MEDS ORDERED: AMPICILLIN SOD/SULBACTAM SOD 3 GM in D5W MINI-BAG PLUS 100 ML IV ONE (06:00)
[2019-02-24] MEDS ORDERED: LR 1,000 ML IV ONE (06:00)
[2019-02-24] MEDS ORDERED: LEVO125T4 PO (06:37)
[2019-02-24] MEDS ORDERED: LEVO200T4 PO (06:37)
[2019-02-24] MEDS ORDERED: MIDAZOLAM INJ 2 MG/2 ML VIAL (J2250) As Ordered ONE (07:05)
[2019-02-24] MEDS ORDERED: fentaNYL 100 MCG/2 ML INJECTION (J3010) As Ordered ONE ×2 (07:05→11:37)
[2019-02-24] MEDS ORDERED: LIDOCAINE 2% INJ 100 MG/5 ML SDV (FOR ANES.) As Ordered ONE (07:08)
[2019-02-24] MEDS ORDERED: PROPOFOL 200 MG/20 ML VIAL As Ordered ONE (07:08)
[2019-02-24] MEDS ORDERED: ROCURONIUM BROMIDE 50 MG/5 ML VIAL As Ordered ONE (07:10)
[2019-02-24] MEDS ORDERED: dexameTHASONE 4 MG/ML 1ML VIAL (J1100) As Ordered ONE ×2 (07:11→08:39)
[2019-02-24] MEDS ORDERED: METOCLOPRAMIDE INJ 10MG/2ML VIAL (J2765) As Ordered ONE (07:11)
[2019-02-24] MEDS ORDERED: BUPIVACAINE HCL 0.25% 30 ML VIAL As Ordered ONE (07:14)
[2019-02-24] MEDS ORDERED: LIDOCAINE 1% SDV INJ 30 ML VIAL As Ordered ONE (07:14)
[2019-02-24] MEDS ORDERED: CETACAINE SPRAY 5GM As Ordered ONE (08:08)
[2019-02-24] MEDS ORDERED: GLYCOPYRROLATE INJ 0.2 MG/ML 2 ML VIAL As Ordered ONE (08:39)
[2019-02-24] MEDS ORDERED: HYDROmorphone HCL 2 MG/ML 1ML VIAL (J1170) As Ordered ONE (10:17)
[2019-02-24] MEDS ORDERED: SUGAMMADEX SODIUM 500 MG/5 ML VIAL (BRIDION) As Ordered ONE (11:00)
[2019-02-24] MEDS ORDERED: ONDANSETRON 4MG/2ML VIAL (J2405) IV PRN ×2 (11:30→11:45)
[2019-02-24] MEDS: fentaNYL 100 MCG/2 ML INJECTION (J3010) IV PRN ×4 (11:37→12:47)
[2019-02-24] MEDS ORDERED: HYDROMORPHONE HCL 0.5 MG/ 0.5 ML SYRINGE (J1170 PER 1) IV PRN (11:45)
[2019-02-24 12:04] LABS: BASO % 0.3 % (0.0-1.0); EOS % 0.1 % (0.0-3.0); HEMATOCRIT 26.2 % (42.0-52.0); HEMOGLOBIN 8.6 g/dl (13.5-17.5); MEAN CORPUSCULAR HEMOGLOBIN 34.7 pg (27.0-33.0); MEAN CORPUSCULAR HGB CONC 32.8 g/dl (32.0-36.5); MEAN CORPUSCULAR VOLUME 105.6 fl (80.0-96.0); MONO % 0.4 % (0.0-5.0); NEUTROPHILS # 6.7 10^3/uL (1.8-7.7); NEUTROPHILS % 95.8 % (36.0-66.0); PLATELET COUNT, AUTOMATED 101 10^3/uL (150-450); RED BLOOD COUNT 2.48 10^6/uL (4.30-6.10)
[2019-02-24] MEDS: PERCOCET 5MG/325MG TAB PO PRN ×3 (12:04→21:30)
[2019-02-24] MEDS ORDERED: PERCOCET 5MG/325MG TAB As Ordered ONE (12:04)
[2019-02-24] MEDS ORDERED: PILL CRUSHER/CUTTER 1 EACH XX ONE (12:06)
[2019-02-24 12:32] LABS: CALCIUM LEVEL 8.1 MG/DL (8.8-10.2); CREATININE FOR GFR 5.78 MG/DL (0.70-1.30); GLOMERULAR FILTRATION RATE 10.7 (>49); POTASSIUM SERUM 4.1 MEQ/L (3.5-5.1)
[2019-02-24 12:49] LABS: LYMPH # 0.2 10^3/uL (1.5-4.5)
[2019-02-24] MEDS: SENOKOT S TAB PO SCH (21:29)
[2019-02-24] MEDS: PRAVASTATIN 20 MG TAB PO SCH (21:29)
[2019-02-25 02:00] VITALS: BP 141/70
[2019-02-25] MEDS: PERCOCET 5MG/325MG TAB PO PRN ×2 (02:35→21:20)
[2019-02-25] MEDS: MORPHINE 4 MG/ML 1ML VIAL/SYRINGE (J2270) IV PRN ×3 (03:29→14:22)
[2019-02-25 06:00] VITALS: BP 131/63
[2019-02-25 06:37] LABS: BASO % 0.2 % (0.0-1.0); EOS % 0.4 % (0.0-3.0); HEMATOCRIT 23.1 % (42.0-52.0); HEMOGLOBIN 7.6 g/dl (13.5-17.5); LYMPH # 0.4 10^3/uL (1.5-4.5); LYMPH % 6.6 % (24.0-44.0); MEAN CORPUSCULAR HEMOGLOBIN 34.7 pg (27.0-33.0); MEAN CORPUSCULAR HGB CONC 32.9 g/dl (32.0-36.5); MEAN CORPUSCULAR VOLUME 105.5 fl (80.0-96.0); MONO # 0.3 10^3/uL (0.0-0.8); MONO % 4.6 % (0.0-5.0); NEUTROPHILS # 4.8 10^3/uL (1.8-7.7); NEUTROPHILS % 87.8 % (36.0-66.0); RED BLOOD COUNT 2.19 10^6/uL (4.30-6.10); WHITE BLOOD COUNT 5.5 10^3/uL (4.0-10.0)
[2019-02-25 07:03] LABS: ALBUMIN 3.2 GM/DL (3.2-5.2); BILIRUBIN,TOTAL 0.4 MG/DL (0.2-1.0); CALCIUM LEVEL 8.1 MG/DL (8.8-10.2); CREATININE FOR GFR 7.08 MG/DL (0.70-1.30); GLOMERULAR FILTRATION RATE 8.5 (>49); POTASSIUM SERUM 4.9 MEQ/L (3.5-5.1); TOTAL PROTEIN 6.2 GM/DL (6.4-8.2)
[2019-02-25 07:19] LABS: PLATELET COUNT, AUTOMATED 80 10^3/uL (150-450)
[2019-02-25] MEDS: SENOKOT S TAB PO SCH ×2 (07:54→21:18)
[2019-02-25] MEDS: MULTIVITAMINS/MINERALS THERAP 1 TAB PO SCH (07:54)
[2019-02-25] MEDS: PANTOPRAZOLE 40MG INJ (PROTONIX) (C9113) IV SCH (07:54)
[2019-02-25] MEDS: ASCORBIC ACID 500 MG TAB PO SCH (07:54)
--- NOTE | 2019-02-25 08:24 | CR ---
DATE OF CONSULTATION: 02/24/2019 REQUESTING PROVIDER: Dr. Junaid Lees REASON FOR CONSULTATION: To assist in the management of end-stage renal disease. HISTORY OF PRESENT ILLNESS: Mr. Chen is a 63-year-old gentleman with quite complicated medical problems and surgical history. He has known history of end-stage renal disease and has been on maintenance hemodialysis for several years. 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 He also was found to have thyroid cancer and underwent thyroidectomy. Following this, he had an infected hip prosthesis, which was removed and now he is without any functioning right hip. He still wants to have a kidney transplant and was found to have gallstones during recent hospitalization when he was admitted with diverticulitis. Transplant team asked him to get a cholecystectomy, due to which he was electively scheduled for cholecystectomy. He did have unexpected complication with bleeding and has been now admitted for observation following surgery. The patient is due for dialysis tomorrow, due to which nephrology consultation was requested. I have seen the patient this afternoon. PAST MEDICAL AND SURGICAL HISTORY: 1. End-stage renal disease requiring maintenance hemodialysis. 2. History of prosthetic hip infection, status post right hip removal. 3. History of tongue cancer status post tongue resection and neck dissection. 4. History of thyroid cancer, status post thyroidectomy. 5. History of osteomyelitis of right clavicle. 6. History of right kidney transplant times two. 7. History of surgical hypothyroidism. 8. History of interstitial lung disease. 9. History of diverticulosis. 10. Anemia of end-stage renal disease. 11. Status post cholecystectomy. ALLERGIES: Patient has allergy to HYDROCHLOROTHIAZIDE and LEVODOPA. MEDICATIONS: His current medications include: - hydrocodone 7.5/325 mg 1 tablet every 6 hours as needed pain - temazepam 30 mg as needed for insomnia - levothyroxine 350 mcg daily - vitamin C 500 mg daily - aspirin 81 mg daily - vitamin D 1000 units daily - Tagamet 200 mg twice a day - Plavix 75 mg daily - multivitamin 1 tablet daily - Nepro seven cans per day - pravastatin 20 mg daily - Renvela 4.8 grams with meals PERSONAL AND SOCIAL HISTORY: The patient has no history of smoking or alcohol use. He denies any drug use. FAMILY HISTORY: Noncontributory. REVIEW OF SYSTEMS: The denies any fever or chills. He underwent an elective cholecystectomy today. He has difficulty with speech due to tongue dissection. Ears, nose and throat are unremarkable. Cardiovascular system is negative for dyspnea or chest pain. Respiratory system is negative for cough or hemoptysis. Gastrointestinal system is as per history of present illness. The patient denies any diarrhea or vomiting. Genitourinary system is significant for end-stage renal disease. Musculoskeletal system is significant for infected right hip prosthesis, status post removal of infected prosthesis. Endocrine system is significant for surgical hypothyroidism. He also has secondary hyperparathyroidism. There is no history of diabetes. Hematological system is significant for anemia of chronic kidney disease. He had significant blood loss during surgery today. Neurological system is negative for seizures or stroke. Psychosocial system negative for depression or anxiety. PHYSICAL EXAMINATION: Temperature 97.5 degrees Fahrenheit, heart rate 94 per minute and respiratory rate 18 per minute. Blood pressure 130/63 mmHg and oxygen saturation 99%. His head is atraumatic. Old surgical scars on his jaw and neck are all well-healed. Most of his tongue is surgically absent. Heart sounds are regular and tachycardiac. Lungs are clear to auscultation. Abdomen is soft and bowel sounds are present. Surgical dressings are intact. Extremities have no cyanosis or clubbing. Left arm AV fistula is patent. Neurologically, he is awake, alert and oriented times three. LABORATORY DATA: WBC count 7.0, hemoglobin 8.6 and hematocrit 26.2, platelets 101. Sodium 136, potassium 4.1, CO2 29, BUN 75 and creatinine 5.78. Calcium level 8.1 and glucose 182. PROBLEMS: 1. End-stage renal disease. The patient is due for dialysis tomorrow and we will schedule his dialysis for tomorrow morning. Electrolytes are stable and at this point there is no emergent indication for dialysis today. 2. Anemia. The patient did have acute blood loss and anemia is likely to get worse. We will consider to transfuse him during dialysis if needed. His CBC will be checked tomorrow morning. 3. Hypertension. He has been without any antihypertensive medications lately and blood pressure has been reasonably well-controlled. At this point, no medications are needed. Thank you for involving me in the care of Mr. Chen. We will follow him along with you.
--- NOTE | 2019-02-25 11:16 | ROOPDOC ---
[facility] Report Of Operation Report of Operation DATE OF PROCEDURE: 02/25/19 PREPROCEDURE DIAGNOSES: history of acute cholecystitis, chronic cholecystis, umbilical hernia POSTPROCEDURE DIAGNOSES: same, umbilical hernia PROCEDURE: Laparoscopic cholecystectomy, open umbilical hernia repair (primary) SURGEON: Junaid Lees MD [employer] MANAGER: MD Dr. Cristóbal Funez assisted me with placement of the ports, retraction of the gallbladder, stomach and omentum in controlling the bleeding and in closure of the ports afterwards. ANESTHESIA: General Anesthesia. ESTIMATED BLOOD LOSS: Approximately 1200 mL. COMPLICATIONS: bleeding at the midportion of the lesser curvature of the stomach from puncture either from the veress or entry with the first port. REMARKS: distended mildly thick walled gallbladder. PROCEDURE NOTE: Patient is a 64-year-old male, end-stage renal disease on hemodialysis who presented emergency room last month with sudden onset of abdominal pain during dialysis with hypotension and was found to have some portal venous gas which resolved with IV antibiotics in the short period of chalino l rest but was found later to have thickened gallbladder wall consistent with cholecystitis for which she was treated nonoperatively with IV antibiotics with resolution of his leukocytosis and discomfort. He was followed in the clinic and now brought today for planned cholecystectomy. He has had multiple abdominal surgeries including for his DESCRIPTION OF PROCEDURE: Patient was given a dose Unasyn 3 g IV preoperatively for prophylaxis. He was brought to the operating room, laid supine on the table, compression boots placed for DVT prophylaxis. General endotracheal anesthesia started. Her abdomen then prepped and draped in usual sterile fashion. Surgical timeout was performed prior to starting surgery. Entry into the abdomen done through an incision at the left upper quadrant area to avoid a moderate size umbilical hernia. A Veress needle was inserted with a controlled fashion. CO2 insufflation started to pressure 15 mmHg. Using the same incision a 5 mm Visiport was placed under direct vision laparoscope. The area underneath the insertion site was inspected and I noted a good amount of hematoma underneath the insertion site which is located at the lateral portion of the gastric body which was pulled up towards the left side of the abdominal wall from what most likely was a previous feeding tube placement. Initially is seems stable so I proceeded with positioning the patient and placement of the laparoscopic port sites were cholecystectomy. He was then placed in steep reverse Trendelenburg. His right side was tilted up to further expose the gallbladder. Under direct vision a 5 mm port site was placed at the lower epigastric area above the umbilical hernia site and 2 other 5 mm ports were placed along the right subcostal line in its usual position. I switched the 5 mm 30 camera towards the supraumbilical port site again evaluated the area around the greater curvature of the stomach. I suctioned the hematoma I noted further oozing from around the area. I obtained a Harmonic Scalpel and further dissected the gastrocolic omentum and freed up the area to try to identify the bleeding points and controlled the bleeding. This probably was coming from a short gastric artery and around the area. I could identify the bleeding seems to come from deeper portion of the gastrocolic omentum. I placed another 5 mm port along the left side and repositioned the patient left side of this time to identify the bleeding portion. I initially placed hemoclips but this was not able to control the bleeding thus I further dissected at the area until I exposed the bleeding vessel and controlled this with both hemoclips and Harmonic scalpel. After finally gaining control of the bleeding I estimated lost about close to 800 ML's of blood just from what I got from the suction as well as a few of those from the irrigation. Once the bleeding was controlled patient was repositioned in its usual position for the cholecystectomy. Operative findings: His liver over all is noted to be smooth in contour no nodularities or lesions found. His gallbladder is mildly thickened, moderately distended distended. May be a few floating stones can be palpated/glanced around with manipulation of the lower portion of the gallbladder. The fundus of the gallbladder was grasped and the gallbladder was elevated super iorly exposing the neck of the gallbladder. The peritoneum overlying the area was opened up and dissected free both anteriorly and posteriorly to help with retraction of the gallbladder. The hepatocystic triangle was approached and dissected using a [place] and instrument. The cystic duct was identified coming off from the next gallbladder this was circumferentially dissected. The cystic artery was identified in its usual position medially behind a small lymph node of Calot. This was similarly circumferentially dissected off surrounding adipose tissue. We continued posterior dissection proximally at the next gallbladder until a critical view of safety was achieved whereby only the previously identified duct and artery coursing through the neck the gallbladder. At this point the cystic artery was clipped 4 times and divided. After again checking his anatomy and verifying that the previously identified cystic duct, this was also clipped 4 times and divided. The rest of the gallbladder was then dissected free of the gallbladder bed using Bovie cautery. There was minimal bleeding at the lateral gallbladder attachments to the liver capsule this was easily controlled with Bovie cautery. The gallbladder was then placed in an Endo Catch bag and retrieved outside through the epigastric port site. After re- insufflation I again inspected the clips and noted this to be in place. No further bleeding noted. No bile leakage noted. I came back to the gastric wall to again reinspected for adequate hemostasis there was a few months of what appears to me as fresh bruising though it is not clear if this is left over or continued oozing. After placing a few more clips I placed a Tisseel fibrin glue to the area of the bleed which seems to adequately cover and control the mild oozing at the surface of the stomach. I left a 19 round Bharat drain coursing both at the gallbladder bed and also towards the portion of the stomach where there was bleeding for postoperative monitoring The abdomen was deflated all ports were removed. The epigastric fascial defect repaired with 0 Vicryl in a mattress fashion. I then made an incision around the umbilical port site. I previously visualized this internally and noting that this contained mostly omentum. The omentum was divided from the inside and what was left over was easily removed after making the incision on top of the umbilical fascial defect. I then closed this with mattress sutures using 0 Ethibond. I chose not to place a mesh considering the amount of bleeding from the previous surgery. Rest of the skin incisions closed with 4-0 Monocryl in subcuticular fashion. Steri-Strips and gauze dressings were placed, the wound. Patient was informed they awakened, extubated and brought to recovery room stable JUNAID LEES MD Feb 25, 2019 11:16
[2019-02-25 14:00] VITALS: BP 126/58
--- NOTE | 2019-02-25 19:38 | IPNPDOC ---
Subjective General Date/Time Seen The patient was seen on 02/25/19 at 19:31. Subject Chief Complaint/History The patient is a 63-year-old male admitted with a reason for visit of Cholecystitis. Patient is POD1 after laparoscopic appendectomy. He reports he is comfortable. He is tolerating food, denies nausea, vomiting. He finished dialysis today and has had bleeding with his fistula. He received 2 u prbcs. His drain still is bloody in appearance but not much draining out into the bulb. Current Medications Current Medications Current Medications Ascorbic Acid (Vitamin C) 500 mg DAILY PO Last administered on 02/25/19at 07:54; Start 02/25/19 at 09:00 Fentanyl Citrate (Sublimaze) 25 mcg Q5MP PRN IV MODERATE PAIN (PS 4-7) Last administered on 02/24/19at 11:55; Start 02/24/19 at 11:45; Stop 02/24/19 at 12:45; Status DC Hydromorphone HCl (Dilaudid) 0.5 mg Q15M PRN IV MODERATE/SEVERE PAIN (PS 5-10); Start 02/24/19 at 11:45 Morphine Sulfate (Morphine Sulfate Inj) 4 mg Q2HP PRN IV SEVERE PAIN (PS 8-10) Last administered on 02/25/19at 14:22; Start 02/24/19 at 11:30 Multivitamins (Theragram-M) 1 tab DAILY PO Last administered on 02/25/19at 07:54; Start 02/25/19 at 09:00 Ondansetron HCl (ZOFRAN INJection) 4 mg Q4HP PRN IV NAUSEA OR VOMITING; Start 02/24/19 at 11:45; Stop 02/24/19 at 12:45; Status DC Ondansetron HCl (ZOFRAN INJection) 4 mg Q6HP PRN IV NAUSEA OR VOMITING; Start 02/24/19 at 11:30 Oxycodone/ Acetaminophen (Percocet 5mg/ 325mg Tablet) 1 tab Q30M PRN PO MILD TO MODERATE PAIN Last administered on 02/24/19at 12:37; Start 02/24/19 at 12:15; Stop 02/24/19 at 12:48; Status DC Oxycodone/ Acetaminophen (Percocet 5mg/ 325mg Tablet) 1 tab Q4HP PRN PO MODERATE PAIN (PS 5-7) Last administered on 02/25/19at 02:35; Start 02/24/19 at 11:30 Oxycodone/ Acetaminophen (Percocet 5mg/ 325mg Tablet) 2 tab Q6HP PRN PO SEVERE PAIN (PS 8-10); Start 02/24/19 at 11:30 Pantoprazole Sodium (Protonix) 40 mg DAILY IV Last administered on 02/25/19at 07:54; Start 02/25/19 at 09:00 Pravastatin Sodium (Pravachol) 20 mg QHS PO Last administered on 02/24/19at 21:29; Start 02/24/19 at 21:00 Senna/Docusate Sodium (Senokot S) 1 tab BID PO Last administered on 02/25/19at 07:54; Start 02/24/19 at 21:00 Allergies Coded Allergies: hydrochlorothiazide (Verified Allergy, Unknown, UNKNOWN REACTION from [facility], 02/14/19) taken 30 yrs ago methyldopa (Verified Allergy, Unknown, UNKNOWN REACTION from [facility], 01/29/19) Objective Physical Examination Examination GENERAL APPEARANCE:very comfortable. SKIN: warm and dry. HEENT: mild pale palpebral conjunctivae. NECK: no jugular venous distention. LUNGS: Clear to auscultation bilaterally. No wheezing appreciated. HEART: No chest wall abnormalities. Regular rate and rhythm with no murmurs appreciated. ABDOMEN: Abdomen is slightly round, soft, minimally distended. Right side KAJAL drain with small amount of sanguenous drainage, nonbilious. Nontender on palpation. . EXTREMITIES: left upper arm fistula with a hemostatic clamp on the fistula for the bleeding, no active bleeding.. Vital Signs Vital Signs Date Time Temp Pulse Resp B/P (MAP) Pulse Ox O2 Delivery O2 Flow Rate FiO2 02/25/19 14:32 18 02/25/19 14:00 98.5 82 126/58 (80) 97 02/24/19 12:47 2.0 I&Os I&O- Last 24 Hours up to 6 AM 02/25/19 06:00 Intake Total 2400 ml Output Total 1374 ml Balance 1026 ml Laboratory Data Labs 24H Laboratory Tests 2 02/25/19 06:04: Immature Granulocyte % (Auto) 0.4, White Blood Count 5.5, Red Blood Count 2.19L, Hemoglobin 7.6L, Hematocrit 23.1L, Mean Corpuscular Volume 105.5H, Mean Corpuscular Hemoglobin 34.7H, Mean Corpuscular Hemoglobin Concent 32.9, Red Cell Distribution Width 13.2, Platelet Count 80L, Neutrophils (%) (Auto) 87.8H, Ly mphocytes (%) (Auto) 6.6L, Monocytes (%) (Auto) 4.6, Eosinophils (%) (Auto) 0.4, Basophils (%) (Auto) 0.2, Neutrophils # (Auto) 4.8, Lymphocytes # (Auto) 0.4L, Monocytes # (Auto) 0.3, Eosinophils # (Auto) 0.0, Basophils # (Auto) 0.0, Nucleated Red Blood Cells % (auto) 0.0, Immature Platelet Fraction 3.6, Anion Gap 9, Glomerular Filtration Rate 8.5L, Blood Urea Nitrogen 89H, Creatinine 7.08H, Sodium Level 134L, Potassium Level 4.9, Chloride Level 95L, Carbon Dioxide Level 30, Calcium Level 8.1L, Aspartate Amino Transf (AST/SGOT) 73H, Alanine Aminotransferase (ALT/SGPT) 92H, Alkaline Phosphatase 197H, Total Bilirubin 0.4, Total Protein 6.2L, Albumin 3.2, Albumin/Globulin Ratio 1.07 CBC/BMP Laboratory Tests 02/25/19 06:04 Red Blood Count 2.19 L, Mean Corpuscular Volume 105.5 H, Mean Corpuscular Hemoglobin 34.7 H, Mean Corpuscular Hemoglobin Concent 32.9, Red Cell Distr ibution Width 13.2, Neutrophils (%) (Auto) 87.8 H, Lymphocytes (%) (Auto) 6.6 L, Monocytes (%) (Auto) 4.6, Eosinophils (%) (Auto) 0.4, Basophils (%) (Auto) 0.2, Neutrophils # (Auto) 4.8, Lymphocytes # (Auto) 0.4 L, Monocytes # (Auto) 0.3, Eosinophils # (Auto) 0.0, Basophils # (Auto) 0.0, Calcium Level 8.1 L, Aspartate Amino Transf (AST/SGOT) 73 H, Alanine Aminotransferase (ALT/SGPT) 92 H, Alkaline Phosphatase 197 H, Total Bilirubin 0.4, Total Protein 6.2 L, Albumin 3.2 Impression POD1 laparoscopic cholecystectomy for chronic cholecystitits ESRD on dialysis - done today posthemorrhagic anemia s/p transfusion 2 u prbc He is hemodynamically stable. Not much drainage from the KAJAL drain but still looks bloody. will continue to monitor h&h. I was told by patient either Dr. Vela or Dialysis nurse will check the fistula site later. No signs of bilious drainage from KAJAL drain Plan / VTE VTE Prophylaxis Ordered?: No VTE Exclusion Pharmacological: Bleeding Risk LIZBETH SOLO MD Feb 25, 2019 19:38
[2019-02-25] MEDS: PRAVASTATIN 20 MG TAB PO SCH (21:18)
[2019-02-25 22:00] VITALS: BP 128/59
[2019-02-26 06:00] VITALS: BP 124/63
[2019-02-26 06:10] LABS: BASO % 0.3 % (0.0-1.0); EOS # 0.1 10^3/uL (0.0-0.50); EOS % 2.5 % (0.0-3.0); HEMOGLOBIN 8.7 g/dl (13.5-17.5); LYMPH # 0.4 10^3/uL (1.5-4.5); LYMPH % 12.6 % (24.0-44.0); MEAN CORPUSCULAR HEMOGLOBIN 33.5 pg (27.0-33.0); MEAN CORPUSCULAR HGB CONC 33.5 g/dl (32.0-36.5); MONO # 0.2 10^3/uL (0.0-0.8); MONO % 5.2 % (0.0-5.0); NEUTROPHILS # 2.6 10^3/uL (1.8-7.7); NEUTROPHILS % 78.8 % (36.0-66.0); WHITE BLOOD COUNT 3.3 10^3/uL (4.0-10.0)
[2019-02-26 06:16] LABS: PLATELET COUNT, AUTOMATED 86 10^3/uL (150-450)
[2019-02-26 06:48] LABS: ALBUMIN 2.8 GM/DL (3.2-5.2); BILIRUBIN,TOTAL 0.5 MG/DL (0.2-1.0); CALCIUM LEVEL 7.9 MG/DL (8.8-10.2); CREATININE FOR GFR 4.38 MG/DL (0.70-1.30); GLOMERULAR FILTRATION RATE 14.7 (>49); TOTAL PROTEIN 6.1 GM/DL (6.4-8.2)
--- NOTE | 2019-02-26 08:14 | IPN ---
DATE OF SERVICE: 02/25/2019 SUBJECTIVE: The patient seen and examined this morning on the hemodialysis unit. He is receiving his treatment without any heparin use and with two units of packed red blood cells being transfused. He reports his pain is adequately controlled and that he is tolerating a clear liquid diet. During his hemodialysis treatment, he had spontaneous bleeding at one small site of the aneurysmal fistula and post his hemodialysis treatment he had prolonged bleeding from his venous access site. Subsequently, pressure was held for more than an hour and then pressure clamp and reinforced bandages were subsequently placed and the patient is pending evaluation by vascular surgery for possible suture placement. VITAL SIGNS: Temperature 98.5. Pulse 82. Respiratory rate 18. Blood pressure 126/58. Saturating 97% on room air. Intake yesterday was 2.4 liters. Dialysis today removed 1.5 liters. GENERAL: The patient is seen in the hemodialysis unit lying down in bed, comfortable, in no distress, receiving his maintenance treatment. Awake, alert, oriented. HEAD: Atraumatic. There are old surgical scars on his neck that are well healed. 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 HEART: Sounds are regular. LUNGS: Clear to auscultation. There is no crackle or rale. ABDOMEN: Soft. There is a dressing present which is clean, dry and intact. There is a Rashaun-Muller (KAJAL) drain with minimal serosanguineous output. EXTREMITIES: Have no cyanosis or clubbing. The left upper extremity fistula is in use and is significantly aneurysmal. NEUROLOGIC: He is awake, alert and oriented times three. LABS: White count 5.5, hemoglobin 7.6, platelets 80. Sodium 134, potassium 4.9. INPATIENT MEDICATIONS: Reviewed by myself and no change from prior. He is on no blood thinners and no heparin. He is on a clear liquid diet. PROBLEMS: 1. End stage renal disease. The patient is dialyzed today. His volume status and electrolytes are acceptable. He had tolerated his treatment with two units of packed red blood cell transfused and 1.5 liter fluid removal. We have had issues with the fistula which is aneurysmal and prone to bleeding and is discussed below. 2. Aneurysmal fistula. Status post mild spontaneous bleed and also prolonged bleeding from the venous access site. The patient had pressure held for a considerable duration post dialysis. Subsequently also had a pressure clamp placed and then later this evening reinforced dressings. I have discussed the same with vascular surgery. He may need a suture. He did have a fistulogram about a week ago. At present with the prolonged pressure and the subsequent reinforced dressing, the bleed does seem to be at bay and I have asked nursing staff to examine his fistula periodically over the night to monitor for signs of any repeat bleed. 3. Anemia related to acute blood loss and status post two units packed red blood cells with dialysis today. He is not on any blood thinners nor is he receiving heparin with dialysis. CBC will be checked again tomorrow morning. 4. Diet. At home, the patient exclusively takes Nepro for his diet and this can be resumed whenever surgery feels it is appropriate.
[2019-02-26] MEDS: SENOKOT S TAB PO SCH ×2 (08:52→20:01)
[2019-02-26] MEDS: MULTIVITAMINS/MINERALS THERAP 1 TAB PO SCH (08:52)
[2019-02-26] MEDS: PANTOPRAZOLE 40MG INJ (PROTONIX) (C9113) IV SCH (08:52)
[2019-02-26] MEDS: ASCORBIC ACID 500 MG TAB PO SCH (08:52)
[2019-02-26 14:00] VITALS: BP 134/64
[2019-02-26] MEDS: LEVOTHYROXINE 125MCG TABLET (0.125MG) PO SCH (14:03)
[2019-02-26] MEDS: LEVOTHYROXINE 100MCG TABLET (0.1MG) PO SCH (14:03)
[2019-02-26] MEDS: PERCOCET 5MG/325MG TAB PO PRN ×2 (14:04→20:05)
[2019-02-26] MEDS: PRAVASTATIN 20 MG TAB PO SCH (20:03)
[2019-02-26 22:00] VITALS: BP 136/63
[2019-02-27] MEDS: PERCOCET 5MG/325MG TAB PO PRN ×3 (02:28→17:46)
[2019-02-27 06:00] VITALS: BP 143/68
[2019-02-27] MEDS: SENOKOT S TAB PO SCH ×2 (06:12→21:00)
[2019-02-27 06:33] LABS: BASO % 0.7 % (0.0-1.0); EOS # 0.1 10^3/uL (0.0-0.50); EOS % 3.4 % (0.0-3.0); HEMATOCRIT 25.4 % (42.0-52.0); HEMOGLOBIN 8.4 g/dl (13.5-17.5); LYMPH % 7.4 % (24.0-44.0); MEAN CORPUSCULAR HEMOGLOBIN 33.6 pg (27.0-33.0); MEAN CORPUSCULAR HGB CONC 33.1 g/dl (32.0-36.5); MEAN CORPUSCULAR VOLUME 101.6 fl (80.0-96.0); MONO # 0.1 10^3/uL (0.0-0.8); MONO % 4.7 % (0.0-5.0); NEUTROPHILS # 2.5 10^3/uL (1.8-7.7); NEUTROPHILS % 83.5 % (36.0-66.0)
[2019-02-27] MEDS: LEVOTHYROXINE 100MCG TABLET (0.1MG) PO SCH (06:34)
[2019-02-27] MEDS: LEVOTHYROXINE 125MCG TABLET (0.125MG) PO SCH (06:34)
[2019-02-27] MEDS: MULTIVITAMINS/MINERALS THERAP 1 TAB PO SCH (06:34)
[2019-02-27] MEDS: ASCORBIC ACID 500 MG TAB PO SCH (06:36)
[2019-02-27] MEDS: PANTOPRAZOLE 40MG INJ (PROTONIX) (C9113) IV SCH (06:36)
[2019-02-27 06:58] LABS: ALBUMIN 2.8 GM/DL (3.2-5.2); BILIRUBIN,TOTAL 0.5 MG/DL (0.2-1.0); CALCIUM LEVEL 7.9 MG/DL (8.8-10.2); CREATININE FOR GFR 6.15 MG/DL (0.70-1.30); GLOMERULAR FILTRATION RATE 9.9 (>49); POTASSIUM SERUM 4.1 MEQ/L (3.5-5.1); TOTAL PROTEIN 6.1 GM/DL (6.4-8.2)
[2019-02-27 07:12] LABS: LYMPH # 0.2 10^3/uL (1.5-4.5); PLATELET COUNT, AUTOMATED 86 10^3/uL (150-450)
--- NOTE | 2019-02-27 11:22 | IPN ---
DATE OF SERVICE: 02/27/2019 SUBJECTIVE: The patient seen and examined this morning at the bedside. Denies any acute overnight events or issues. Did not have any further bleeding from the fistula site. Tolerated his treatment yesterday and reports he is back on his usual Nepro diet. VITAL SIGNS: Temperature 97.4. Pulse 86. Respiratory rate 18. Blood pressure 134/64. Saturating 97% on room air. Intake yesterday was 1340. Dialysis yesterday removed 1500. Urine output yesterday 300. Net negative 500. Weight on the bed scale today is not recorded. GENERAL: The patient is seen lying down in bed. Appears older than stated age. No distress. Comfortable. Awake, alert and oriented. Atraumatic. HEAD: There are old surgical scars on his jaw and neck that are well healed. 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 HEART: Sounds are regular. LUNGS: Clear to auscultation. There is no crackle or rale. ABDOMEN: Soft. There are dressings present which are clean, dry and intact. There is a Rashaun-Muller (KAJAL) drain present with serosanguineous output. EXTREMITIES: Negative for clubbing, cyanosis and edema. The left upper extremity fistula has a clean dressing with no blood. The fistula itself is significant aneurysmal. NEUROLOGIC: He is awake, alert and oriented times three. LABS: White count 3.3, hemoglobin 8.7, platelets 86. Sodium 140, potassium 4.0, bicarbonate 32. INPATIENT MEDICATIONS: I resumed the patient on his Synthroid 325 mcg by mouth daily. Remainder of medications are unchanged from prior. PROBLEMS: 1. End stage renal disease on hemodialysis. Next dialysis treatment will be tomorrow. His volume status and electrolytes are acceptable. He will need to followup further with vascular surgery regarding his aneurysmal fistula with recent prolonged bleeding. That can be done as an outpatient. 2. Anemia related to acute blood loss status post two units packed red blood cells with dialysis yesterday. Will check a CBC again in the morning and transfuse further if needed. Hemoglobin has improved. He is receiving heparin free dialysis. We will continue with the same, especially in view of prolonged bleeding from the fistula. 3. Hypothyroidism. I have resumed the patient on his usual home dose of levothyroxine. 4. Diet. The patient is back on his usual exclusive Nepro diet. 5. Status post laparoscopic cholecystectomy. 6. Discharge disposition as per primary surgical team.
--- NOTE | 2019-02-27 13:36 | IPNPDOC ---
Subjective General Date/Time Seen The patient was seen on 02/27/19 at 13:32. Subject Chief Complaint/History The patient is a 63-year-old male admitted with a reason for visit of Cholecystitis. Patient is single undergoing dialysis. He is receiving 1 more unit of packed RBCs during dialysis. He reports no severe abdominal discomfort, bloating, nausea or vomiting. He is back on his Nepro. He has been hemodynamically stable. Current Medications Current Medications Current Medications Ascorbic Acid (Vitamin C) 500 mg DAILY PO Last administered on 02/27/19 06:36; Start 02/25/19 at 09:00 Fentanyl Citrate (Sublimaze) 25 mcg Q5MP PRN IV MODERATE PAIN (PS 4-7) Last administered on 02/24/19 11:55; Start 02/24/19 at 11:45; Stop 02/24/19 at 12:45; Status DC Hydromorphone HCl (Dilaudid) 0.5 mg Q15M PRN IV MODERATE/SEVERE PAIN (PS 5-10); Start 02/24/19 at 11:45 Levothyroxine Sodium (Synthroid) 125 mcg DAILY@06 PO Last administered on 02/27/19 06:34; Start 02/26/19 at 13:00 Levothyroxine Sodium (Synthroid) 200 mcg DAILY@06 PO Last administered on 02/27/19 06:34; Start 02/26/19 at 13:00 Morphine Sulfate (Morphine Sulfate Inj) 4 mg Q2HP PRN IV SEVERE PAIN (PS 8-10) Last administered on 02/25/19 14:22; Start 02/24/19 at 11:30 Multivitamins (Theragram-M) 1 tab DAILY PO Last administered on 02/27/19 06:34; Start 02/25/19 at 09:00 Ondansetron HCl (ZOFRAN INJection) 4 mg Q4HP PRN IV NAUSEA OR VOMITING; Start 02/24/19 at 11:45; Stop 02/24/19 at 12:45; Status DC Ondansetron HCl (ZOFRAN INJection) 4 mg Q6HP PRN IV NAUSEA OR VOMITING; Start 02/24/19 at 11:30 Oxycodone/ Acetaminophen (Percocet 5mg/ 325mg Tablet) 1 tab Q30M PRN PO MILD TO MODERATE PAIN Last administered on 02/24/19 12:37; Start 02/24/19 at 12:15; Stop 02/24/19 at 12:48; Status DC Oxycodone/ Acetaminophen (Percocet 5mg/ 325mg Tablet) 1 tab Q4HP PRN PO MODERATE PAIN (PS 5-7) Last administered on 02/27/19 06:37; Start 02/24/19 at 11:30 Oxycodone/ Acetaminophen (Percocet 5mg/ 325mg Tablet) 2 tab Q6HP PRN PO SEVERE PAIN (PS 8-10) Last administered on 02/26/19 20:05; Start 02/24/19 at 11:30 Pantoprazole Sodium (Protonix) 40 mg DAILY IV Last administered on 02/27/19 0 6:36; Start 02/25/19 at 09:00 Pravastatin Sodium (Pravachol) 20 mg QHS PO Last administered on 02/26/19 20:03; Start 02/24/19 at 21:00 Senna/Docusate Sodium (Senokot S) 1 tab BID PO Last administered on 02/26/19 08:52; Start 02/24/19 at 21:00 Allergies Coded Allergies: hydrochlorothiazide (Verified Allergy, Unknown, UNKNOWN REACTION from [facility], 02/14/19) taken 30 yrs ago methyldopa (Verified Allergy, Unknown, UNKNOWN REACTION from [facility], ) Objective Physical Examination Examination GENERAL APPEARANCE: Patient is undergoing dialysis, looks comfortable. SKIN: Warm and moist. HEENT: Mild pale palpebral conjunctiva. Lips are moist. NECK: Supple, no thyromegaly. No obvious jugular venous distention. LUNGS: Clear to auscultation bilaterally. No wheezing appreciated. HEART: No chest wall abnormalities. Regular rate and rhythm with no murmurs appreciated. ABDOMEN: Abdomen is round, soft, port site dressings are clean, dry and intact. KAJAL drain shows thin, light colored serosanguineous fluid. Nontender on palpation. EXTREMITIES: Extremities have no deformities. No edema identified. Vital Signs Vital Signs Date Time Temp Pulse Resp B/P (MAP) Pulse Ox O2 Delivery O2 Flow Rate FiO2 02/27/19 07:45 16 02/27/19 06:00 97.6 75 143/68 (93) 99 02/24/19 12:47 2.0 I&Os I&O- Last 24 Hours up to 6 AM 02/27/19 06:00 Intake Total 1160 ml Output Total 143 ml Balance 1017 ml Laboratory Data Labs 24H Laboratory Tests 2 02/27/19 05:43: Immature Granulocyte % (Auto) 0.3, White Blood Count 3.0L, Red Blood Count 2.50L, Hemoglobin 8.4L, Hematocrit 25.4L, Mean Corpuscular Volume 101.6H, Mean Corpuscular Hemoglobin 33.6H, Mean Corpuscular Hemoglobin Concent 33.1, Red Cell Distribution Width 16.3H, Platelet Count 86L, Neutrophils (%) (Auto) 83.5H, Lymphocytes (%) (Auto) 7.4L, Monocytes (%) (Auto) 4.7, Eosinophils (%) (Auto) 3.4H, Basophils (%) (Auto) 0.7, Neutrophils # (Auto) 2.5, Lymphocytes # (Auto) 0.2L, Monocytes # (Auto) 0.1, Eosinophils # (Auto) 0.1, Basophils # (Auto) 0.0, Nucleated Red Blood Cells % (auto) 0.0, Immature Platelet Fraction 2.4, Anion Gap 7L, Glomerular Filtration Rate 9.9L, Blood Urea Nitrogen 63H, Creatinine 6.15H, Sodium Level 138, Potassium Level 4.1, Chloride Level 100, Carbon Dioxide Level 31, Calcium Level 7.9L, Aspartate Amino Transf (AST/SGOT) 44H, Alanine Aminotransferase (ALT/SGPT) 67, Alkaline Phosphatase 195H, Total Bilirubin 0.5, Total Protein 6.1L, Albumin 2.8L, Albumin/Globulin Ratio 0.85L CBC/BMP Laboratory Tests 02/27/19 05:43 Red Blood Count 2.50 L, Mean Corpuscular Volume 101.6 H, Mean Corpuscular Hemoglobin 33.6 H, Mean Corpuscular Hemoglobin Concent 33.1, Red Cell Distribution Width 16.3 H, Neutrophils (%) (Auto) 83.5 H, Lymphocytes (%) (Auto) 7.4 L, Monocytes (%) (Auto) 4.7, Eosinophils (%) (Auto) 3.4 H, Basophils (%) (Au to) 0.7, Neutrophils # (Auto) 2.5, Lymphocytes # (Auto) 0.2 L, Monocytes # (Auto) 0.1, Eosinophils # (Auto) 0.1, Basophils # (Auto) 0.0, Calcium Level 7.9 L, Aspartate Amino Transf (AST/SGOT) 44 H, Alanine Aminotransferase (ALT/SGPT) 67, Alkaline Phosphatase 195 H, Total Bilirubin 0.5, Total Protein 6.1 L, Albumin 2.8 L Impression Postop day 2 after laparoscopic cholecystectomy for chronic cholecystitis Intraoperative bleeding from injury to blood vessel near the mid body of the lesser curvature of the stomach Postoperative anemia Overall he appears to be doing well. He is receiving another unit of blood during dialysis. His hemoglobin is 8.4. His KAJAL drainage only shows some thin serosanguineous fluid is no longer bloody in appearance. I'll anticipate that he probably will be ready to go home tomorrow with the drain removed. I will recheck the hemoglobin and hematocrit in the morning. Plan / VTE VTE Prophylaxis Ordered?: No VTE Exclusion Pharmacological: Bleeding Risk LIZBETH SOLO MD Feb 27, 2019 13:36
[2019-02-27] MEDS: PRAVASTATIN 20 MG TAB PO SCH (21:58)
[2019-02-27 22:00] VITALS: BP 134/63
[2019-02-28] MEDS: PERCOCET 5MG/325MG TAB PO PRN (00:21)
[2019-02-28 05:57] LABS: HEMATOCRIT 31.7 % (42.0-52.0); HEMOGLOBIN 10.5 g/dl (13.5-17.5); MEAN CORPUSCULAR HEMOGLOBIN 32.7 pg (27.0-33.0); MEAN CORPUSCULAR HGB CONC 33.1 g/dl (32.0-36.5); MEAN CORPUSCULAR VOLUME 98.8 fl (80.0-96.0); PLATELET COUNT, AUTOMATED 101 10^3/uL (150-450); RED BLOOD COUNT 3.21 10^6/uL (4.30-6.10); WHITE BLOOD COUNT 2.7 10^3/uL (4.0-10.0)
[2019-02-28 06:00] VITALS: BP 136/71
[2019-02-28] MEDS: LEVOTHYROXINE 125MCG TABLET (0.125MG) PO SCH (06:10)
[2019-02-28] MEDS: LEVOTHYROXINE 100MCG TABLET (0.1MG) PO SCH (06:10)
[2019-02-28] MEDS: ASCORBIC ACID 500 MG TAB PO SCH (08:35)
[2019-02-28] MEDS: PANTOPRAZOLE 40MG INJ (PROTONIX) (C9113) IV SCH (08:35)
[2019-02-28] MEDS: MULTIVITAMINS/MINERALS THERAP 1 TAB PO SCH (08:35)
[2019-02-28] MEDS: SENOKOT S TAB PO SCH (08:36)
--- NOTE | 2019-02-28 09:32 | DS.PDOC ---
Discharge Summary General Date of Admission Feb 24, 2019 at 11:34 Date of Discharge February 28, 2019 Attending Physician: LIZBETH SOLO MD Specialist/Consultants Involve: ANTONINO MANJARREZ MD @ Discharge Summary PROCEDURES PERFORMED DURING STAY: Laparoscopic Cholecystectomy, repair of umbilical hernia. ADMITTING DIAGNOSES: 1. Chronic Cholecystitis. 2. End Stage Renal Disease on Dialysis 3. Post hemorrhagic anemia DISCHARGE DIAGNOSES: 1. Cholelithiasis with chronic cholecystitis. 2. ESRD on dialysis 4. Post hemorrrhagic anemia s/p transfusion 3 u prbc 4. aneurysm of AVF COMPLICATIONS/CHIEF COMPLAINT: Cholecystitis. HISTORY OF PRESENT ILLNESS: Patient was admitted for continued postoperative monitoring following bleeding during performance of laparoscopic cholecystectomy. He was previously admitted in the hospital about a month ago for acute cholecystitis and is now brought in today for interval cholecystectomy. HOSPITAL COURSE: Patient despite the amount of bleeding remained hemodynamically stable. Initial blood count postoperatively shows hemoglobin of 8.6 and hematocrit of 26.2. Following morning this further came down to 7.6 and 23.1. He received 2 units of packed RBCs during his dialysis. I consulted Dr. Manjarrez for help in post operative management and scheduling of his dialysis. Patient has end-stage renal disease and is on maintenance dialysis. He also is also mainly subsisting on Nepro as he has a history of oral cancer. He was immediately resumed and this type of diet. His hemoglobin and hematocrit were followed up. This only came up as much is 8.7 and 26.0 and the following day came down slightly to 8.4 and 25.4 and was given an additional unit of blood during his next dialysis. The following day this came up appropriately to 10.5 and 31.7. A Bharat drain was left in place for postoperative monitoring and this was mainly putting out sanguinous nonclotting fluid is much is 101 mL on postop day 2. This subsequently has gone down to 165 mL saphenous last day of stay in the hospital which is postop day 4. Throughout his stay he remains hemodynamically stable. He is Bharat drain was removed prior to discharge and postop day 4. His pain was adequately controlled with only intermittent doses of narcotic pain medication, mainly with Percocets. He was placed back on his usual medications. On discharge patient is tolerating his usual diet of Nepro is very comfortable. As mentioned in his hemoglobin and hematocrit has come up appropriately to 10.5 and 31.7. DISCHARGE MEDICATIONS: Please see below. ALLERGIES: Please see below. PHYSICAL EXAMINATION ON DISCHARGE: VITAL SIGNS: Please see below. GENERAL: Comfortable HEENT: mild pale palpebral conjunctivae, slight garbled speech (chronic, post surgical) NECK: no jugular venous distention CARDIOVASCULAR EXAMINATION: regular heart rate and rhythm RESPIRATORY EXAMINATION: clear breath sounds to ausculation bilaterally ABDOMINAL EXAMINATION: round, soft, nondistended. Port site dressings with mild staining otherwise dry, drain with now serous drainage.(removed), nontender on palpation EXTREMITIES: no edema SKIN: no jaundice NEUROLOGICAL EXAMINATION: Awake, alert, oriented LABORATORY DATA: Please see below. IMAGING: none PROGNOSIS: good ACTIVITY: As tolerated. DIET: as tolerated (Patient on nepro) DISCHARGE PLAN: d/c home. Dialysis as scheduled. Follow up with me on March 06 DISPOSITION: . DISCHARGE INSTRUCTIONS: 1. Follow-up with Dr. Manjarrez per his usual schedule and arrange for dialysis per his usual schedule 2. Follow-up with me in 1 week. ITEMS TO FOLLOWUP ON ON OUTPATIENT: 1. Pathology has been discussed with the patient prior to discharge which shows many cholelithiasis and chronic cholecystitis consistent with his clinical diagn osis DISCHARGE CONDITION: Stable. TIME SPENT ON DISCHARGE: Greater than 30 minutes. Vital Signs/I&Os Vital Signs Date Time Temp Pulse Resp B/P (MAP) Pulse Ox O2 Delivery O2 Flow Rate FiO2 02/28/19 06:00 99.0 84 18 136/71 (92) 98 02/24/19 12:47 2.0 I&O- Last 24 Hours up to 6 AM 02/28/19 06:00 Intake Total 680 ml Output Total 2625 ml Balance -1945 ml Laboratory Data Labs 24H Laboratory Tests 2 02/28/19 05:40: Nucleated Red Blood Cells % (auto) 0.0 CBC/BMP Laboratory Tests 02/28/19 05:40 Red Blood Count 3.21 L, Mean Corpuscular Volume 98.8 H, Mean Corpuscular Hemoglobin 32.7, Mean Corpuscular Hemoglobin Concent 33.1, Red Cell Distribution Width 18.2 H Discharge Medications Scheduled (Nepro with Carb Steady) 1 Liq Liq, 1 LIQ PO 7XD, (Reported) (Heparin Sodium) 10,000 Unit/10 Ml Inj, 1 DOSE IV HD, (Reported) Ascorbic Acid (Vitamin C) 500 Mg Tablet, 500 MG PO DAILY, (Reported) Aspirin (Aspirin EC) 81 Mg Tab, 81 MG PO 4XWK, (Reported) TAKES ON NON-DIALYSIS DAYS, SUN/MON/WED/FRI Bisacodyl (Bisacodyl) 5 Mg Tab, 5 MG PO DAILY, (Reported) Cholecalciferol (Vitamin D3) (Vitamin D3) 1,000 Unit Tablet, 1 TAB PO DAILY, (Reported) Levothyroxine Sodium (Levothyroxine Sodium) 125 Mcg Tablet, 125 MCG PO DAILY, (Reported) Levothyroxine Sodium (Levothyroxine Sodium) 200 Mcg Tablet, 200 MCG PO DAILY, (Reported) Methoxy Peg-Epoetin Beta (Mircera) 30 Mcg/0.3 Ml Suzanne, 1 DOSE IV HD, (Reported) Multivitamin (Daily Multiple Vitamin) 1 Each Tablet, 1 TAB PO DAILY, (Reported) Multivitamins (Thera M Plus Tablet) 1 Tab Tab, 1 TAB PO DAILY, (Reported) Pravastatin Sodium (Pravastatin Sodium) 20 Mg Tab, 20 MG PO QHS, (Reported) Sevelamer Carbonate (Renvela Oral Suspension) 2.4 Gm Mango, 4.8 GM PO WM, (Repor britney) l Acidophil/B Lactis/B Longum (Florajen3 Capsule) 1 Cap Cap, 1 CAP PO DAILY, (Reported) Scheduled PRN Cimetidine (Tagamet Hb) 200 Mg Tab, 200 MG PO BID PRN for HEARTBURN, (Reported) Oxycodone HCl/Acetaminophen (Oxycodon-Acetaminophen 7.5-325) 1 Tab Tab, 1 TAB PO Q6H PRN for PAIN, (Reported) Allergies Coded Allergies: hydrochlorothiazide (Verified Allergy, Unknown, UNKNOWN REACTION from [facility], 02/14/19) taken 30 yrs ago methyldopa (Verified Allergy, Unknown, UNKNOWN REACTION from [facility], 01/29/19) LIZBETH SOLO MD Feb 28, 2019 09:32
--- NOTE | 2019-02-28 17:23 | IPN ---
DATE: 02/28/2019 SUBJECTIVE: The patient is seen and examined this morning in the dialysis unit receiving his maintenance treatment with 1 unit of packed red blood cells with dialysis. He is tolerating his Nepro diet well. He reports that pain is well controlled, and he has been receiving heparin-free dialysis. No recurrent issues related to the fistula were reported. PHYSICAL EXAMINATION: VITAL SIGNS: Temperature 99.1 Pulse 90. Respiratory rate 18. Blood pressure 134/63. Saturating 98% on room air. Dialysis today removed 2.5 liters. GENERAL: The patient is seen lying in the hemodialysis unit receiving his treatment, comfortable, reading a book, no distress. Extraocular muscles are intact. HEAD: There are old surgical scars on his jaw and neck that are well healed. 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 HEART: Sounds are regular. LUNGS: Clear to auscultation. There is no crackle or rales. ABDOMEN: Soft. There is a Rashaun-Muller (KAJAL) drain present. EXTREMITIES: Negative for edema. The left upper extremity fistula is aneurysmal and is presently in use. NEUROLOGIC: He is awake, alert and oriented times three. LABS: White count 3.0, hemoglobin 8.4, platelets 86. Sodium 138, potassium 4.1, glucose 91. INPATIENT MEDICATIONS: Reviewed by myself. No change from prior. PROBLEMS: 1. End stage renal disease on hemodialysis. Tolerating his treatments well. His volume status and electrolytes are acceptable. I am transfusing another unit of packed red blood cells with dialysis today due to the postoperative anemia. He will followup further with vascular surgery regarding his aneurysmal fistula as an outpatient. There has been no recurrent prolonged bleeding from the fistula site. Needle placement has been discussed with dialysis nurse. 2. Anemia related to acute blood loss, now status post a total of 3 units of packed red blood cells. Hemoglobin and hematocrit are improving. Repeat CBC in the morning. His heparin has been held. 3. Diet. The patient is tolerating his usual exclusive diet of Nepro. 4. Status post laparoscopic cholecystectomy with discharge disposition as per the primary surgical team.
--- NOTE | 2019-04-01 19:24 | IPNPDOC ---
Subjective General Date/Time Seen The patient was seen on 02/28/19 at 07:51. Subject Chief Complaint/History The patient is a 63-year-old male admitted with a reason for visit of Cholecystitis. Patient reports feeling well, denies any severe abdominal discomfort. He is tolerating his usual diet of Nepro without any vomiting. Current Medications Current Medications Current Medications Ascorbic Acid (Vitamin C) 500 mg DAILY PO Last administered on 02/27/19 06:36; Start 02/25/19 at 09:00 Fentanyl Citrate (Sublimaze) 25 mcg Q5MP PRN IV MODERATE PAIN (PS 4-7) Last administered on 02/24/19 11:55; Start 02/24/19 at 11:45; Stop 02/24/19 at 12:45; Status DC Hydromorphone HCl (Dilaudid) 0.5 mg Q15M PRN IV MODERATE/SEVERE PAIN (PS 5-10); Start 02/24/19 at 11:45 Levothyroxine Sodium (Synthroid) 125 mcg DAILY@06 PO Last administered on 02/28/19at 06:10; Start 02/26/19 at 13:00 Levothyroxine Sodium (Synthroid) 200 mcg DAILY@06 PO Last administered on 02/28/19at 06:10; Start 02/26/19 at 13:00 Morphine Sulfate (Morphine Sulfate Inj) 4 mg Q2HP PRN IV SEVERE PAIN (PS 8-10) Last administered on 02/25/19at 14:22; Start 02/24/19 at 11:30 Multivitamins (Theragram-M) 1 tab DAILY PO Last administered on 02/27/19at 06:34; Start 02/25/19 at 09:00 Ondansetron HCl (ZOFRAN INJection) 4 mg Q4HP PRN IV NAUSEA OR VOMITING; Start 02/24/19 at 11:45; Stop 02/24/19 at 12:45; Status DC Ondansetron HCl (ZOFRAN INJection) 4 mg Q6HP PRN IV NAUSEA OR VOMITING; Start 02/24/19 at 11:30 Oxycodone/ Acetaminophen (Percocet 5mg/ 325mg Tablet) 1 tab Q30M PRN PO MILD TO MODERATE PAIN Last administered on 02/24/19at 12:37; Start 02/24/19 at 12:15; Stop 02/24/19 at 12:48; Status DC Oxycodone/ Acetaminophen (Percocet 5mg/ 325mg Tablet) 1 tab Q4HP PRN PO MODERATE PAIN (PS 5-7) Last administered on 02/28/19at 00:21; Start 02/24/19 at 11:30 Oxycodone/ Acetaminophen (Percocet 5mg/ 325mg Tablet) 2 tab Q6HP PRN PO SEVERE PAIN (PS 8-10) Last administered on 02/26/19at 20:05; Start 02/24/19 at 11:30 Pantoprazole Sodium (Protonix) 40 mg DAILY IV Last administered on 02/27/19at 0 6:36; Start 02/25/19 at 09:00 Pravastatin Sodium (Pravachol) 20 mg QHS PO Last administered on 02/27/19at 21:58; Start 02/24/19 at 21:00 Senna/Docusate Sodium (Senokot S) 1 tab BID PO Last administered on 02/26/19 08:52; Start 02/24/19 at 21:00 Allergies Coded Allergies: hydrochlorothiazide (Verified Allergy, Unknown, UNKNOWN REACTION from [facility], 02/14/19) taken 30 yrs ago methyldopa (Verified Allergy, Unknown, UNKNOWN REACTION from [facility], ) Objective Physical Examination Examination GENERAL APPEARANCE:Patient seen, laying in bed, awake, alert, and oriented. Comfortable, in no acute distress. SKIN: Warm and moist. HEENT: Mild pale palpebral conjunctiva. NECK: Supple, no thyromegaly. No obvious jugular venous distention. LUNGS: Clear to auscultation bilaterally. No wheezing appreciated. HEART: No chest wall abnormalities. Regular rate and rhythm with no murmurs appreciated. ABDOMEN: Abdomen is round, soft, and nondistended. Port site incisions and umbilical hernia incision are all intact with dressings clean dry and intact. KAJAL drain outputs out light pink serosanguineous fluid. EXTREMITIES: Extremities have no deformities. No edema identified. Vital Signs Vital Signs Date Time Temp Pulse Resp B/P (MAP) Pulse Ox O2 Delivery O2 Flow Rate FiO2 02/28/19 06:00 99.0 84 18 136/71 (92) 98 02/24/19 12:47 2.0 I&Os I&O- Last 24 Hours up to 6 AM 02/28/19 06:00 Intake Total 680 ml Output Total 2625 ml Balance -1945 ml Laboratory Data Labs 24H Laboratory Tests 2 02/28/19 05:40: Nucleated Red Blood Cells % (auto) 0.0 CBC/BMP Laboratory Tests 02/28/19 05:40 Red Blood Count 3.21 L, Mean Corpuscular Volume 98.8 H, Mean Corpuscular Hemoglobin 32.7, Mean Corpuscular Hemoglobin Concent 33.1, Red Cell Distribution Width 18.2 H Impression POD4 Laparoscopic Cholecystectomy for Chronic Cholecystitis Pathology shows cholelithiasis and chronic cholecystitis Patient with intraoperative bleeding from an injury with entry/port site at the vessel at the lesser curvature of the stomach postoperative anemia s/p 3 u prbc transfusion Hgb/Hct this morning shows appropriate increase after transfusion, drainage from the KAJAL drain has bee mostly serosanguenous now D/C KAJAL drain D/C home Plan / VTE VTE Prophylaxis Ordered?: No VTE Exclusion Pharmacological: Bleeding Risk LIZBETH SOLO MD Feb 28, 2019 07:54
== END 2019-02-28 10:57 | disposition home or self-care (01) | DRG 907 ==
LOC: M SDC 05:46 → M MSPAV 11:34
PROVIDERS: ADMIT Surgery; ATTEND Surgery
PROC: 0WQF0ZZ Repair Abdominal Wall, Open Approach (ICD-10-PCS; 2019-02-24)
PROC: 0W3P8ZZ Control Bleeding in Gastrointestinal Tract, Via Natural or Artificial Opening Endoscopic (ICD-10-PCS; 2019-02-24)
PROC: 30233N1 Transfusion of Nonautologous Red Blood Cells into Peripheral Vein, Percutaneous Approach (ICD-10-PCS; 2019-02-24)
PROC: 0FT44ZZ Resection of Gallbladder, Percutaneous Endoscopic Approach (ICD-10-PCS; principal; 2019-02-24 07:30)
PROC: 5A1D70Z Performance of Urinary Filtration, Intermittent, Less than 6 Hours Per Day (ICD-10-PCS; 2019-02-25)
DX: K91.61 Intraoperative hemorrhage and hematoma of a digestive system organ or structure complicating a digestive system procedure (principal); N18.6 End stage renal disease; K80.64 Calculus of gallbladder and bile duct with chronic cholecystitis without obstruction; J84.9 Interstitial pulmonary disease, unspecified; D62 Acute posthemorrhagic anemia; T82.838A Hemorrhage due to vascular prosthetic devices, implants and grafts, initial encounter; N25.81 Secondary hyperparathyroidism of renal origin; T82.898A Other specified complication of vascular prosthetic devices, implants and grafts, initial encounter; E89.0 Postprocedural hypothyroidism; Z99.2 Dependence on renal dialysis; Z85.828 Personal history of other malignant neoplasm of skin; D63.1 Anemia in chronic kidney disease; Z85.850 Personal history of malignant neoplasm of thyroid; Z88.8 Allergy status to other drugs, medicaments and biological substances; Z79.891 Long term (current) use of opiate analgesic; Z79.82 Long term (current) use of aspirin; Z79.02 Long term (current) use of antithrombotics/antiplatelets; Z79.899 Other long term (current) drug therapy; Y83.1 Surgical operation with implant of artificial internal device as the cause of abnormal reaction of the patient, or of later complication, without mention of misadventure at the time of the procedure; Y83.6 Removal of other organ (partial) (total) as the cause of abnormal reaction of the patient, or of later complication, without mention of misadventure at the time of the procedure

== ENCOUNTER → 2019-04-22 | Outpatient (REF) | payer MEDICARE, OTHER ==
[~2019-04-22] MED LIST changes: +LEVO125T4 PO
== END ==
LOC: M LAB REF 13:15
PROVIDERS: ATTEND Surgery
DX: L02.416 Cutaneous abscess of left lower limb (principal)

== ENCOUNTER → 2019-05-05 | Outpatient (REF) | payer MEDICARE, OTHER | LOC: M LAB REF 12:30 | PROVIDERS: ATTEND Nurse Practitioner | DX: L02.416 Cutaneous abscess of left lower limb (principal) ==

== ENCOUNTER → 2019-05-19 | Outpatient (CLI) | payer MEDICARE, OTHER ==
[~2019-05-19] MED LIST changes: +BUPIVACAINE HCL 0.5% 10 ML VIAL As Ordered ONE; +ISOVUE-300 61% 50ML VIAL (Q9967) As Ordered ONE; +LIDOCAINE 2% MDV 20 ML VIAL As Ordered ONE; +MIDAZOLAM INJ 2 MG/2 ML VIAL (J2250) As Ordered ONE; +fentaNYL 100 MCG/2 ML INJECTION (J3010) As Ordered ONE
[2019-05-19 12:11] VITALS: BP_DIAS 74
[2019-05-19 12:18] VITALS: BP_SYST 164
--- NOTE | 2019-06-19 09:09 | REPIR ---
DATE OF PROCEDURE: 05/19/2019 ATTENDING SURGEON: Dr. Alexander Vela ELECTRONIC BENCH TECHNICIAN: Carey Cheek and Farnaz Lopez PREOPERATIVE DIAGNOSIS: End stage renal disease, dysfunctional left basilic vein transposition arteriovenous fistula. POSTOPERATIVE DIAGNOSIS: End stage renal disease, dysfunctional left basilic vein transposition arteriovenous fistula. PROCEDURE: Left basilic vein transposition arteriovenous fistulogram. INDICATION: The patient is A 64-year-old male with a dysfunctional left basilic vein transposition arteriovenous fistula who undergo a fistulogram. ANESTHESIA: None. ESTIMATED BLOOD LOSS: Minimal. IV FLUIDS: 100 mL FLUOROSCOPY TIME: 0.1 minutes. CONTRAST: 3 mL of Isovue-300. HEPARIN: None. COMPLICATIONS: None. DRAINS: None. SPECIMENS: None. PROCEDURE: The patient was taken to the angiography suite, placed supine on the angiography room table and then prepped and draped in standard surgical fashion. The left basilic vein transposition arteriovenous fistula was cannulated and a fistulogram performed showing no intervention required. The sheath was removed and manual compression applied at the puncture site for hemostasis. Dressings were then applied. The patient tolerated the procedure well. All instruments, sponge and needle counts were correct at the end the case. There were no complications. Dr. Vela was present for and directed the entire case. The patient was transferred to the holding area and subsequently discharged in stable condition.
== END ==
LOC: M IRPRO 09:12
PROVIDERS: ATTEND Surgery Vascular Surgery
DX: N18.6 End stage renal disease (principal); T82.590A Other mechanical complication of surgically created arteriovenous fistula, initial encounter; C02.9 Malignant neoplasm of tongue, unspecified; X58.XXXA Exposure to other specified factors, initial encounter; Y93.9 Activity, unspecified; Y92.9 Unspecified place or not applicable; Y99.9 Unspecified external cause status
CPT/HCPCS: 36901; C1894; J2250; J3010; Q9967

== ENCOUNTER → 2019-06-11 | Outpatient (CLI) | payer MEDICARE, OTHER ==
[~2019-06-11] MED LIST changes: -BUPIVACAINE HCL 0.5% 10 ML VIAL As Ordered ONE; -ISOVUE-300 61% 50ML VIAL (Q9967) As Ordered ONE; -LIDOCAINE 2% MDV 20 ML VIAL As Ordered ONE; -MIDAZOLAM INJ 2 MG/2 ML VIAL (J2250) As Ordered ONE; -fentaNYL 100 MCG/2 ML INJECTION (J3010) As Ordered ONE
--- NOTE | 2019-06-11 11:33 | REP ---
DUPLEX DOPPLER ULTRASOUND LEFT LOWER EXTREMITY ARTERIAL SYSTEM: Real-time ultrasound evaluation and duplex Doppler interrogation of the left lower extremity arterial system is performed. Moderate scattered partially calcified plaquing is seen diffusely in the left lower extremity arterial system. There is stenosis of the distal left posterior tibial artery with occlusion of the distal aspect. Triphasic and biphasic waveforms are seen diffusely. LEFT Peak Systolic velocity Common femoral artery 122.0 cm/s Profunda 115.0 cm/s Proximal SFA 91.7 cm/s Mid SFA 136.0 cm/s Distal SFA 106.0 cm/s Popliteal 92.5 cm/s Proximal COREEN 46.7 cm/s Tibial peroneal trunk 67.7 cm/s Proximal HOSE SEAMER 67.7 cm/s Distal HOSE SEAMER occluded Distal COREEN 191.0 cm/s IMPRESSION: Moderate diffuse plaquing and narrowing throughout the left lower extremity arterial system. There is occlusion of the distal left HOSE SEAMER. Electronically Signed by Tim Person MD 06/12/2019 12:31 A
--- NOTE | 2019-06-11 11:37 | REP ---
LEFT LOWER EXTREMITY DUPLEX DOPPLER VENOUS ULTRASOUND WITH EVALUATION FOR VENOUS REFLUX: Real-time compression and duplex Doppler interrogation of the left lower extremity deep vein system is performed. The left common femoral, superficial femoral and popliteal veins are fully compressible with transducer pressure and demonstrate normal spontaneous and phasic flow without evidence of deep venous thrombosis. There is partial thrombosis of the greater saphenous vein at the mid thigh level which is partially calcified and appears chronic. Evaluation for venous reflux demonstrates reflux throughout the deep vein system of a very mild degree. There is reflux in the greater saphenous vein at the saphenofemoral junction with a duration of 3.6 seconds, AP dimension of that vessel 6 mm, also at the mid thigh level duration 3.4 seconds, AP diameter 6 mm. The greater saphenous vein of the knee is not definitely visualized. There is no reflux in the lesser saphenous vein which measures 2 mm. Multiple venous varicosities are seen in the region of the knee and proximal calf region with thrombus in some of these superficial varicosities. Electronically Signed by Tim Person MD 06/12/2019 12:32 A
== END ==
LOC: M RAD 06:56
PROVIDERS: ATTEND Physician Assistant
DX: L03.116 Cellulitis of left lower limb (principal); L02.416 Cutaneous abscess of left lower limb; I70.202 Unspecified atherosclerosis of native arteries of extremities, left leg; I82.812 Embolism and thrombosis of superficial veins of left lower extremity

== ENCOUNTER → 2019-06-20 | Outpatient (REF) | payer MEDICARE, OTHER ==
[~2019-06-20] MED LIST changes: +NEPR1LIQ2 PO; +OMEP-218 PO
== END ==
LOC: M LAB REF 16:12
PROVIDERS: ATTEND Surgery
DX: T14.8XXA Other injury of unspecified body region, initial encounter (principal); Y92.9 Unspecified place or not applicable
CPT/HCPCS: 11042; 11045; 88305; G0463

== ENCOUNTER 2019-07-02 19:51 | Emergency (ER) | payer MEDICARE, OTHER ==
[~2019-07-02] VITALS: Ht 172.7 cm; Wt 34.1 kg
[~2019-07-02 19:51] MED LIST changes: -NEPR1LIQ2 PO; -OMEP-218 PO; +OXYC5SOL11 PO; -OXYC5SOL15 PO
[2019-07-02 20:40] LABS: BASO % 0.5 % (0.0-1.0); EOS # 0.1 10^3/uL (0.0-0.50); EOS % 1.4 % (0.0-3.0); HEMATOCRIT 31.2 % (42.0-52.0); HEMOGLOBIN 10.1 g/dl (13.5-17.5); LYMPH # 0.4 10^3/uL (1.5-4.5); LYMPH % 8.6 % (24.0-44.0); MEAN CORPUSCULAR HEMOGLOBIN 34.6 pg (27.0-33.0); MEAN CORPUSCULAR HGB CONC 32.4 g/dl (32.0-36.5); MEAN CORPUSCULAR VOLUME 106.8 fl (80.0-96.0); MONO # 0.2 10^3/uL (0.0-0.8); MONO % 5.5 % (0.0-5.0); NEUTROPHILS # 3.5 10^3/uL (1.8-7.7); NEUTROPHILS % 83.5 % (36.0-66.0); PLATELET COUNT, AUTOMATED 120 10^3/uL (150-450); RED BLOOD COUNT 2.92 10^6/uL (4.30-6.10); WHITE BLOOD COUNT 4.2 10^3/uL (4.0-10.0)
[2019-07-02 20:48] LABS: INR 1.18; PROTHROMBIN TIME 14.7 SECONDS (11.8-14.0)
[2019-07-02 20:49] LABS: PARTIAL THROMBOPLASTIN TIME 32.7 SECONDS (25.0-38.4)
[2019-07-02 20:58] LABS: CALCIUM LEVEL 8.8 MG/DL (8.8-10.2); CREATININE FOR GFR 5.57 MG/DL (0.70-1.30); GLOMERULAR FILTRATION RATE 11.1 (>49); POTASSIUM SERUM 4.1 MEQ/L (3.5-5.1)
[2019-07-02 22:00] VITALS: BP 118/79
[2019-09-22] MEDS ORDERED: LOSA50TA88 PO (07:44)
== END 2019-07-02 22:35 | disposition home or self-care (01) ==
LOC: M ED 19:51
DX: T82.838A Hemorrhage due to vascular prosthetic devices, implants and grafts, initial encounter (principal); Y92.9 Unspecified place or not applicable; Y93.9 Activity, unspecified; Z99.2 Dependence on renal dialysis; N18.6 End stage renal disease; C02.9 Malignant neoplasm of tongue, unspecified; C73 Malignant neoplasm of thyroid gland; K57.30 Diverticulosis of large intestine without perforation or abscess without bleeding; J84.9 Interstitial pulmonary disease, unspecified; Z94.0 Kidney transplant status; Z90.89 Acquired absence of other organs; Z90.49 Acquired absence of other specified parts of digestive tract; Z79.82 Long term (current) use of aspirin; Z79.899 Other long term (current) drug therapy; Z88.8 Allergy status to other drugs, medicaments and biological substances

== ENCOUNTER 2019-07-05 06:50 | Inpatient (IN) | payer MEDICARE, OTHER ==
[~2019-07-05] VITALS: Ht 172.7 cm; Wt 77.1 kg
[~2019-07-05 06:50] MED LIST changes: -OXYC5SOL11 PO; +OXYC5SOL15 PO
[2019-07-05 08:35] LABS: INR 0.96; PROTHROMBIN TIME 12.5 SECONDS (11.8-14.0)
[2019-07-05 08:48] LABS: CALCIUM LEVEL 8.6 MG/DL (8.8-10.2); CREATININE FOR GFR 6.05 MG/DL (0.70-1.30); GLOMERULAR FILTRATION RATE 10.1 (>49); POTASSIUM SERUM 4.5 MEQ/L (3.5-5.1)
[2019-07-05] MEDS ORDERED: NEPR1LIQ2 PO (10:22)
[2019-07-05] MEDS ORDERED: SYNT50TA PO (10:22)
[2019-07-05] MEDS ORDERED: SYNT25TA PO (10:22)
--- NOTE | 2019-07-05 11:46 | REP ---
Clinical: Sepsis . Comparison: 06/01/2018 . Technique: PA and lateral. Findings: The mediastinum and cardiac silhouette are normal. The lung [place] are clear and without acute consolidation, effusion, or pneumothorax. The skeletal structures are intact and normal. Impression: 1. No acute cardiopulmonary process. Electronically Signed by Marcos Delacruz MD 07/05/2019 11:37 A
--- NOTE | 2019-07-05 12:14 | HPEPDOC ---
General Date of Admission 07/05/19 Date of Service: Jul 05, 2019 Chief Complaint The patient is a 64-year-old male admitted with a reason for visit of Medical Complaint. 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 It was noted that he missed hemodialysis today as there was concern about his AV fistula presentation as there was a small opening with erythema noted in AV fistula site after his dialysis on Sat. Pt reported fistula size is baseline; no change in the erythema since it first appeared. Pt denies any fever, chills, lightheadedness, dizziness, nausea, or any other complaints. He reported minimal weight gain compared to baseline less than 1kg. Pt reported his left foot ulcer is chronic, and he just underwent debridement dressing changes by Dr. Mathur; prefers not to have the dressing touched as it was just changed yesterday, reporting ulcer is stable Home Medications Scheduled Ascorbic Acid (Vitamin C) 500 Mg Tablet, 500 MG PO DAILY, (Reported) Aspirin (Aspirin EC) 81 Mg Tab, 81 MG PO DAILY, (Reported) Bisacodyl (Bisacodyl) 5 Mg Tab, 10 MG PO DAILY, (Reported) Cholecalciferol (Vitamin D3) (Vitamin D3) 1,000 Unit Tablet, 1,000 UNITS PO DAILY, (Reported) Levothyroxine Sodium (Levothyroxine Sodium) 200 Mcg Tablet, 200 MCG PO DAILY, (Reported) 325MCG TOTAL DOSE Levothyroxine Sodium (Synthroid) 25 Mcg Tablet, 25 MCG PO DAILY, (Reported) 325MCG TOTAL DOSE Levothyroxine Sodium (Synthroid) 50 Mcg Tablet, 100 MCG PO DAILY, (Reported) 325MCG TOTAL DOSE Multivitamin (Daily Multiple Vitamin) 1 Each Tablet, 1 TAB PO DAILY, (Reported) Nut.tx.imp.renal Fxn,Lac-Reduc (Nepro Carb Steady) 237 Ml Liquid, 1 LIQ PO 7XD, (Reported) Pravastatin Sodium (Pravastatin Sodium) 20 Mg Tab, 20 MG PO QHS, (Reported) Scheduled PRN Oxycodone HCl/Acetaminophen (Oxycodon-Acetaminophen 7.5-325) 1 Tab Tab, 1 TAB PO Q6H PRN for PAIN, (Reported) Allergies Coded Allergies: hydrochlorothiazide (Verified Allergy, Unknown, UNKNOWN REACTION from [facility], 02/14/19) taken 30 yrs ago methyldopa (Verified Allergy, Unknown, UNKNOWN REACTION from [facility], 01/29/19) Past Medical History Medical History 1. ESRD requiring maintenance hemodialysis due to early-onset glomerulonephritis 2. History of prosthetic hip infection, status post right hip removal. 3. History of tongue cancer status post tongue resection and neck dissection. 4. History of thyroid cancer, status post thyroidectomy. 5. Left foot ulcer, chronic 5. Chronic osteomyelitis of right clavicle. 6. S/p 2 kidney transplant 7. Hypothyroidism. 8. Interstitial lung disease; upper lobes. Calcifications within nodules b/l 9. Diverticulosis. 10. Anemia of end-stage renal disease. 11. Hx of Cholecystitis 12. Umbilical hernia 13. Artherosclerosis of left leg 14. Chronicc venous hypertension of Left lower extremity 16. Splenomegaly 17. GERD 18. Insomnia Surgical History Right hip prosthesis Dr. Silva 11/2008 Left hip prosthesis 08/2007 Radial neck dissection for tongue cancer 2010 Renal tranplant 2 times [facility]. Cataract 12/2016 AV fistula creation left arm Umbilical hernia repair Cholecystectomy Varicose vein stripping Parathyroid surgeryX2 Numerous skin cancer removal Social History * Smoker: former Smoker Pt lives at home with A-FIB/CHADSVASC A-FIB History Current/History of A-Fib/PAF?: No Review of Systems Constitutional: Denies: Chills, Fever, Weakness ENT: Reports: Other Symptoms (slurred speech d/t tongue surgery) Pulmonary: Denies: Dyspnea Cardiovascular: Denies: Chest Pain, Palpitations Gastrointestinal: Denies: Nausea, Vomiting, Abdominal Pain Genitourinary: Reports: Other Symptoms (reported no urine output which is baseline) Musculoskeletal: Denies: Arm Pain Physical Examination General Exam: Positive: Alert, No Acute Distress Eye Exam: Positive: Other Eye Symptoms (NO conjunctiva injections b/l); Negative: Sclera icteric ENT Exam: Positive: Mucous membr. moist/pink, Other ENT (Well healed scars noted in neck; s/p neck glossenectomy) Chest Exam: Positive: Clear to auscultation, Normal air movement; Negative: Rales, Rhonchi, Wheezing Heart Exam: Positive: Rate Normal, Regular Rhythm, Murmurs Abdomen Exam: Positive: Normal bowel sounds, Soft Extremity Exam: Positive: Other (compression sock noted in left leg; dressing covering left foot including ankle); Negative: Edema Skin Exam: Positive: Nl turgor and temperature, Other skin issue (AV fistula s ize golf ball size. Ulceration noted. Several irregular shaped erythematous macules noted without obvious signs of infection noted. Several healing excoriations/scab noted in left upper extremity with one near AV fistula site. No warmth, pus, or drinage noted) Neuro Exam: Negative: Normal Speech (speech slurred) Psych Exam: Positive: Mental status NL, Memory Intact, Oriented x 3 Vital Signs Vital Signs Date Time Temp Pulse Resp B/P (MAP) Pulse Ox O2 Delivery O2 Flow Rate FiO2 07/05/19 10:45 72 20 100 Room Air 07/05/19 10:30 140/66 (90) 07/05/19 10:00 96.8 Laboratory Data Labs 24H Laboratory Tests 2 07/05/19 07:41: Prothrombin Time 12.5, Prothromb Time International Ratio 0.96, Activated Partial Thromboplast Time 20.0L, Anion Gap 7L, Glomerular Filtration Rate 10.1L, Blood Urea Nitrogen 67H, Creatinine 6.05H, Sodium Level 136, Potassium Level 4.5, Chloride Level 98, Carbon Dioxide Level 31, Calcium Level 8.6L CBC/BMP Laboratory Tests 07/05/19 07:41 Calcium Level 8.6 L Assessment/Plan 1. ESRD requiring maintenance hemodialysis, missing dialysis today. -Missing dialysis today as there was concern about his AV fistula site presentation -Nephro consulted possible dialysis from permacath; Dr. Vela consulted from ED planning permacath placement likely tmrw. - Creatinine mildly increased compared to baseline; GFR baseline -Cont home med Vit D 2. Ulcerated AV fistula -Several irregular shaped erythema which pt reported present since his hemodialysis on . -Ulceration noted; several irregular shaped erythema macules; pt reported present since his dialysis on -Pt denies any fever/chills or any complaints. blood cx and lactic acid ordered to r/o infection 2. Chronic left foot ulcer -Pt following Dr. Stillerman, s/p debridement and dressing change 07/04 -Pt prefers not to get the dressing touched at this time, but indicated no signs of infection. Denies fever/chills 3. PMH of hypertension. Pt not on outpt BP meds; BP roughly stable and asymptomatic. Vital signs as scheduled. Pt possible dialysis after permacath placement -Cont home med pravastatin 4. Hypothyroidism. Thyroid cancer s/p thyroidectomy. Cont home thyroid med 5. Anemia of ESRD. Pt not on outpt therapy; consider CBC tmrw morning to monitor. Pt asymptomatic 6. Tongue cancer s/p glossectomy and neck dissection. Well healed scar on neck; slurred speech noted. Pt drinks nephro 7 cans/day DVT prophylaxis: SCD Diet: Nephro Plan / VTE VTE Prophylaxis Ordered?: Yes GME ATTESTATION GME ATTESTATION My faculty preceptor for this patient encounter was physically present during the encounter and was fully available. All aspects of the patient interview, examination, medical decision making process, and medical care plan development were reviewed and approved by the faculty preceptor. The faculty preceptor is aware and concurs with the plan as stated in the body of this note and will attest to such by his/her cosignature. ATTENDING NOTE I, Maylin Isaac, have independently examined this patient and performed my own physical exam, as well as reviewed the documentation and edited where necessary. I have discussed in detail with the resident / student the findings and plan of treatment as documented by the resident / student and edited their note. I agree with their findings and treatment plan and have edited their documentation. I will continue to follow the patient during this hospital stay. JEANNETTE UMAÑA DO Jul 05, 2019 12:14 MAYLIN ISAAC MD Jul 07, 2019 15:04
[2019-07-05] MEDS: BISACODYL 5 MG TAB PO SCH (12:30)
[2019-07-05] MEDS: ASPIRIN 81 MG ENTERIC TAB PO SCH (12:31)
[2019-07-05] MEDS: VITAMIN D 1,000 INTERNATIONAL UNITS TABLET PO SCH (12:31)
[2019-07-05] MEDS: MULTIVITAMINS/MINERALS THERAP 1 TAB PO SCH (12:32)
[2019-07-05] MEDS: ASCORBIC ACID 500 MG TAB PO SCH (12:32)
[2019-07-05 12:38] LABS: HEMATOCRIT 28.5 % (42.0-52.0); HEMOGLOBIN 9.3 g/dl (13.5-17.5); MEAN CORPUSCULAR HEMOGLOBIN 35.2 pg (27.0-33.0); MEAN CORPUSCULAR HGB CONC 32.6 g/dl (32.0-36.5); PLATELET COUNT, AUTOMATED 126 10^3/uL (150-450); RED BLOOD COUNT 2.64 10^6/uL (4.30-6.10)
[2019-07-05 13:08] LABS: WHITE BLOOD COUNT 1.7 10^3/uL (4.0-10.0)
[2019-07-05 14:00] VITALS: BP 141/67
--- NOTE | 2019-07-05 14:47 | CR ---
DATE OF CONSULTATION: 07/05/2019 REQUESTING PHYSICIAN: Dr. Maylin Isaac CONSULTING PHYSICIAN: Dr. Garcia. REASON FOR CONSULTATION: Management of end-stage renal disease on hemodialysis. CHIEF COMPLAINT: The patient presented to the emergency room today because of bleeding from the left upper arm arteriovenous (AV) fistula. HISTORY OF PRESENT ILLNESS: Mr. Jc Chen is a 64-year-old male with past medical history of end- stage renal disease on hemodialysis every Sunday, and Sunday, history of a failed renal transplant, multiple other comorbidities as mentioned below. He has a large aneurysmal fistula in the left upper arm and the patient reports that on Sunday, it started bleeding and he had to press it for a long time and he was actually in emergency room as well for that but he was sent home. Today he presented again with an ulcerated fistula in the dialysis center and he was refusing to have it cannulated feeling that it would start bleeding. Today is patient's regular dialysis day, so dialysis center sent him here for further evaluation. The patient was evaluated by vascular surgery and plan is to have his fistula repaired, probably tomorrow or on Sunday and he will get a tunneled dialysis catheter placement in the meanwhile. The patient is admitted under the medical team and nephrology service was called for further help in the management of end-stage renal disease on hemodialysis. I saw and evaluated the patient this afternoon in the emergency room. He is afebrile. He denies any active complaints. He denies any pain at the fistula site. PAST MEDICAL HISTORY: Past medical history of end-stage renal disease on hemodialysis every Sunday, and Sunday. History of failed renal transplant times two. History of tongue cancer status post tongue resection and radical neck dissection. History of thyroid cancer in the past. Chronic left foot ulcer. Hypothyroidism. Interstitial lung disease. Anemia on end-stage renal disease. Gastroesophageal reflux disease and inability to eat regular food. PAST SURGICAL HISTORY: Status post tongue resection and neck dissection. Status post left upper arm AV fistula placement in the past. Status post thyroidectomy in the past. Status post a right hip removal because of chronic infection. Status post kidney transplant times two. ALLERGIES: He is allergic to METHYLDOPA and HYDROCHLOROTHIAZIDE. FAMILY HISTORY: No significant family history of end-stage renal disease requiring hemodialysis. SOCIAL HISTORY: The patient denies any smoking, illicit drug abuse or alcohol abuse. REVIEW OF SYSTEMS: CONSTITUTIONAL: He denies any fevers or chills. EYES: He denies any blurry vision, double vision. EARS, NOSE, THROAT (ENT): The patient reports difficulty with swallowing. He only drinks Nepro. CARDIOVASCULAR: Denies any chest pain or palpitation. He does report bleeding from the AV fistula site last week. RESPIRATORY: He denies any shortness of breath or cough. GASTROINTESTINAL (GI): He denies any nausea, vomiting or diarrhea. GENITOURINARY: He denies any dysuria, hematuria. MUSCULOSKELETAL: He reports removal of right hip prosthesis. CENTRAL NERVOUS SYSTEM (FAMILY PRACTICE PHYSICIAN ASSISTANT): He denies any strokes or seizures. SKIN: He reports ulcers at the fistula site. Otherwise he denies any rashes site. PSYCH: He denies any depression or anxiety. ENDOCRINE: He reports secondary hyperparathyroidism. HEMATOLOGY/ONCOLOGY: He denies any easy bruising. He does report bleeding from the fistula. All other review of systems is negative. PHYSICAL EXAMINATION: GENERAL: The patient is awake, alert, oriented times three, sitting up in the bed in no apparent distress. HEAD AND NECK EXAM: The patient has an old surgical incision on the lower jaw and in the neck. NECK: Neck is supple. Otherwise there is no jugular venous distention (JVD). CARDIOVASCULAR: S1, S2. Regular rate. No edema of the bilateral lower extremities. RESPIRATORY: Chest is clear to auscultation bilaterally. Bilateral equal air entry. No rales or rhonchi. ABDOMEN: Soft. Positive bowel sounds. Nontender. No organomegaly. MUSCULOSKELETAL: No clubbing or cyanosis. Pulses are 2+. FAMILY PRACTICE PHYSICIAN ASSISTANT: No focal deficit. Power is 5/5 in all extremities. AV AXIS: The patient has a left upper arm AV fistula, which is aneurysmal and has ulceration which is covered with a dressing. LAB REVIEW: CBC is pending. BMP showed sodium 136, potassium 4.5, chloride 98, bicarb 31, BUN 67, creatinine 6, calcium is 8.6. IMAGING: A chest x-ray was done which showed no acute cardiopulmonary process. CURRENT INPATIENT MEDICATIONS: - vitamin C 500 mg daily - aspirin 81 mg daily - Dulcolax 110 mg by mouth daily - levothyroxine 325 mcg daily - multivitamin one tablet daily - pravastatin 20 mg nightly - vitamin D 1000 units daily. - The patient is also on Nepro 7 cans daily. ASSESSMENT: 64-year-old male with history of end-stage renal disease on hemodialysis admitted this time because of bleeding from the left upper arm aneurysmal AV fistula. PLAN: 1. End-stage renal disease: The patient's regular dialysis days are Sunday, and Sunday. Because of malfunctioning of the AV fistula, the patient will get a tunneled dialysis catheter placed tomorrow. He will either be dialyzed tomorrow afternoon or on Sunday depending upon his volume status. 2. Malfunctioning and bleeding from the left upper arm AV fistula: I would avoid using the fistula at this time. Patient has already been evaluated by vascular surgery. AV fistula will be repaired in the operating room (OR) after the catheter placement. 3. History of partial tongue resection and inability to eat. The patient drinks only Nepro, 7 cans a day. 4. Hypothyroidism. Continue levothyroxine 325 mcg p.o. daily. Thank you for involving me in the care of this patient. I shall be happy to follow the patient along with you tomorrow morning. STIVEN
[2019-07-05 14:58] LABS: BASO % 1.1 % (0.0-1.0); EOS # 0.1 10^3/uL (0.0-0.50); EOS % 4.3 % (0.0-3.0); LYMPH # 0.3 10^3/uL (1.5-4.5); LYMPH % 18.3 % (24.0-44.0); MONO # 0.2 10^3/uL (0.0-0.8); MONO % 10.8 % (0.0-5.0); NEUTROPHILS # 1.2 10^3/uL (1.8-7.7)
[2019-07-05] MEDS: PRAVASTATIN 20 MG TAB PO SCH (21:07)
[2019-07-05 22:00] VITALS: BP 135/65
[2019-07-06 06:00] VITALS: BP 120/63
[2019-07-06] MEDS: LEVOTHYROXINE 25MCG TABLET (0.025MG) PO SCH (06:54)
[2019-07-06] MEDS: LEVOTHYROXINE 100MCG TABLET (0.1MG) PO SCH (06:54)
[2019-07-06 07:20] LABS: HEMATOCRIT 25.6 % (42.0-52.0); HEMOGLOBIN 8.4 g/dl (13.5-17.5); MEAN CORPUSCULAR HEMOGLOBIN 34.1 pg (27.0-33.0); MEAN CORPUSCULAR HGB CONC 32.8 g/dl (32.0-36.5); MEAN CORPUSCULAR VOLUME 104.1 fl (80.0-96.0); PLATELET COUNT, AUTOMATED 110 10^3/uL (150-450); RED BLOOD COUNT 2.46 10^6/uL (4.30-6.10); WHITE BLOOD COUNT 2.8 10^3/uL (4.0-10.0)
[2019-07-06 07:38] LABS: CALCIUM LEVEL 8.5 MG/DL (8.8-10.2); CREATININE FOR GFR 7.47 MG/DL (0.70-1.30); GLOMERULAR FILTRATION RATE 7.9 (>49); POTASSIUM SERUM 4.6 MEQ/L (3.5-5.1)
[2019-07-06] MEDS: BISACODYL 5 MG TAB PO SCH (08:51)
[2019-07-06] MEDS: ASPIRIN 81 MG ENTERIC TAB PO SCH ×2 (08:51→08:54)
[2019-07-06] MEDS: MULTIVITAMINS/MINERALS THERAP 1 TAB PO SCH (08:51)
[2019-07-06] MEDS: ASCORBIC ACID 500 MG TAB PO SCH (08:51)
[2019-07-06] MEDS: VITAMIN D 1,000 INTERNATIONAL UNITS TABLET PO SCH (08:52)
[2019-07-06] MEDS ORDERED: LEVOTHYROXINE 50MCG TABLET (0.05MG) PO SCH (09:00)
[2019-07-06] MEDS ORDERED: DARBEPOETIN 100 MCG/0.5 ML *DIALYSIS* SYRINGE (J0882) IV SCH (12:45)
[2019-07-06 13:01] LABS: PERCENT SATURATION 18.5 % (19.7-50.0)
--- NOTE | 2019-07-06 13:12 | IPNPDOC ---
Text Note Date of Service The patient was seen on 07/06/19. NOTE Subjective: Patient is a 64-year-old male with a PMHx of ESRD on HD (TTS), s/p renal transplant, Hx of Squamous Cell CA of Tongue (s/p glossectomy and neck dissection), Hx of Thyroid CA (s/p Thyroidectomy), Chronic Left Foot ulcer, presented to the emergency room after hemodialysis could not be completed because of left arm AV fistula drainage. In the emergency room, patient had his fistula evaluated, which did not appear to show any signs of cellulitis. Patient was admitted to hospitalist service for further evaluation and treatment. Vascular surgery was consultation for revision of left arm AV fistula placement of temporary dialysis catheter. Patient was seen and examined at the bedside. . Currently, patient reports that he has had an uneventful evening. He denies chest pain, shortness of breath or palpitations. Denies any nausea, vomiting, abdominal pain or diarrhea. Objective: Vitals (See below) General: Lying in bed, no acute distress, comfortable, AAOx3 HEENT: NC, AT CVS: RRR, +S1S2 Lungs: Fair air entry b/l, -w/r/r Abdomen: Soft, ND, NT Extremities: - Edema, - Calf tenderness, left arm AV fistula (no evidence of extensive erythema, no appreciable drainage, no appreciable warmth) Assessment and plan: ESRD on HD (TTS) - Patient could not receive dialysis on Sunday07/05/2019 because of drainage from his left arm AV fistula - Clinically patient does not appear to have any signs of cellulitis - Vascular surgery, Dr. Vela has been consulted; plan for left arm AV fistula revision in temporary dialysis catheter placement - Nephrology on consultation Pancytopenia - possibly 2/2 prior chemotherapy, possibly 2/2 underlying dysplastic syndrome - Review of medical records indicates that this has been ongoing since 2012 - No evidence of bleeding - Nephrology has started the patient on Ferrous sulfate and Darbepoetin Chronic left foot ulcer - Patient follows with Dr. Mathur as an outpatient for wound care - Recently has had a debridement on 07/04/2019 - Continue with wound care based on outpatient recommendations HTN - BP remains well-controlled - Currently not on any medications PMHx - c/w Pravastatin Hypothyroidism - c/w Levothyroxine - s/p Thyroidectomy Hx of Squamous cell CA of Tongue - s/p glossectomy and neck dissection Chronic osteomyelitis of right clavicle s/p Renal transplant x2 DVT prophylaxis - c/w SCDs/TEDs VS,Fishbone, I+O VS, Fishbone, I+O Laboratory Tests 07/06/19 06:29 Red Blood Count 2.46 L, Mean Corpuscular Volume 104.1 H, Mean Corpuscular Hemoglobin 34.1 H, Mean Corpuscular Hemoglobin Concent 32.8, Red Cell Distribution Width 13.2, Calcium Level 8.5 L Vital Signs Date Time Temp Pulse Resp B/P (MAP) Pulse Ox O2 Delivery O2 Flow Rate FiO2 07/06/19 06:00 98.5 73 18 120/63 (82) 97 07/05/19 13:48 Room Air I&O- Last 24 Hours up to 6 AM 07/06/19 05:59 Intake Total 260 ml Output Total 0 ml Balance 260 ml MICHELLE OLIVA MD Jul 06, 2019 13:12
--- NOTE | 2019-07-06 13:17 | IPN ---
DATE OF SERVICE: 07/06/2019 SUBJECTIVE: The patient was seen and examined at the bedside today morning. He is afebrile, hemodynamically stable. He reports that he is probably going to have the tunneled catheter placement today in the afternoon. The patient was not dialyzed yesterday because a left upper arm AV fistula has ulceration. The patient otherwise denies any active complaints. OBJECTIVE: Vital signs: Temperature is 98.5 degrees Fahrenheit, blood pressure 120/63, pulse is 73, respiratory rate of 18, saturating 97% on room air. Intake and output: There is no urine output recorded. Weight in the bed scale was 79.5 kg yesterday. PHYSICAL EXAMINATION: General: The patient is awake, alert, oriented times three, laying in bed in no apparent distress. Head and neck examination: Extraocular muscles intact. Pupils equally round and reactive to light. The patient has old surgical scars on the chin and in the neck from previous neck dissection. Neck is supple. There is no jugular venous distention (JVD). Cardiovascular: S1, S2, regular rate. No edema of the lower extremity. Respiratory: Chest is clear to auscultation bilaterally. Bilateral equal air entry. No rales or rhonchi. Abdomen: Soft. Positive bowel sounds. Nontender. No organomegaly. Musculoskeletal: No clubbing or cyanosis. Pulses are 2+. Central nervous system (MINE SURVEYOR): No focal deficit. Power is 5/5 in all extremities. AV access: The patient has left upper arm AV fistula with ulceration, which is covered with a dressing. Fistula is aneurysmal. LABORATORY REVIEW: Complete blood count (CBC) showed a WBC 2.8, hemoglobin 8.4, platelets are 110. Basic metabolic profile (BMP) showed sodium 136, potassium 4.6, chloride 98, bicarbonate 28, BUN 84, creatinine is 7.4. CURRENT INPATIENT MEDICATIONS: The patient's medications were all reviewed by me. There is no change in the medications today as compared with yesterday. ASSESSMENT AND PLAN: 1. End-stage renal disease, on hemodialysis. The patient's regular dialysis days are Sunday, , Sunday. He could not be dialyzed yesterday. He is going to have the tunneled catheter placement; and after that, he will be dialyzed in the morning. 2. Bleeding from the left upper arm AV fistula. The patient has aneurysmal fistula with one episode of bleeding last week, and he has an ulcer on the fistula. It will be repaired in the operating room (OR) by vascular surgery. 3. Anemia in end-stage renal disease. Hemoglobin is 8.4, which is low. I am going to check the patient's iron levels and start the patient on Aranesp with dialysis tomorrow morning.
[2019-07-06 14:00] VITALS: BP 125/65
[2019-07-06] MEDS: PRAVASTATIN 20 MG TAB PO SCH (21:22)
[2019-07-06 22:00] VITALS: BP 129/65
[2019-07-07] MEDS: LEVOTHYROXINE 25MCG TABLET (0.025MG) PO SCH (05:47)
[2019-07-07] MEDS: LEVOTHYROXINE 100MCG TABLET (0.1MG) PO SCH (05:47)
[2019-07-07 06:00] VITALS: BP 130/65
[2019-07-07 07:09] LABS: HEMATOCRIT 24.1 % (42.0-52.0); HEMOGLOBIN 7.9 g/dl (13.5-17.5); MEAN CORPUSCULAR HEMOGLOBIN 34.5 pg (27.0-33.0); MEAN CORPUSCULAR HGB CONC 32.8 g/dl (32.0-36.5); MEAN CORPUSCULAR VOLUME 105.2 fl (80.0-96.0); PLATELET COUNT, AUTOMATED 100 10^3/uL (150-450); RED BLOOD COUNT 2.29 10^6/uL (4.30-6.10); WHITE BLOOD COUNT 2.3 10^3/uL (4.0-10.0)
[2019-07-07 07:42] LABS: CALCIUM LEVEL 8.3 MG/DL (8.8-10.2); CREATININE FOR GFR 8.87 MG/DL (0.70-1.30); GLOMERULAR FILTRATION RATE 6.5 (>49); POTASSIUM SERUM 4.7 MEQ/L (3.5-5.1)
[2019-07-07] MEDS: ASPIRIN 81 MG ENTERIC TAB PO SCH ×2 (09:00→09:11)
[2019-07-07] MEDS: MULTIVITAMINS/MINERALS THERAP 1 TAB PO SCH (09:11)
[2019-07-07] MEDS: BISACODYL 5 MG TAB PO SCH (09:11)
[2019-07-07] MEDS: ASCORBIC ACID 500 MG TAB PO SCH (09:11)
[2019-07-07] MEDS: VITAMIN D 1,000 INTERNATIONAL UNITS TABLET PO SCH (09:11)
[2019-07-07] MEDS ORDERED: IRON SUCROSE 100MG 5ML VIAL (J1756 PER 1MG) IV SCH (09:45)
[2019-07-07] MEDS ORDERED: HEPARIN 1,000 UNITS/ML 10ML VIAL (FOR RADIOLOGY& DIALYSIS ONLY) IV ONE (10:45)
--- NOTE | 2019-07-07 11:17 | IPNPDOC ---
Text Note Date of Service The patient was seen on 07/07/19. 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 Pt was examined at bedside today. He reported no complaints including fever, chills, chest pain, palpitation, nausea, vomiting, abd pain, constipation, diarrhea, lightheadedness, or dizziness. Pt reported he had the left foot ulcer dressing changed yesterday and the ulcer size had been improving. Objective: General: Pt is A&OX3, not in acute distress, comfortable and cooperative HEENT: Head normocephalic, atraumatic, no scleral injections noted b/l Heart: RRR, murmur noted Lungs: CTA, no rales, wheezing, or rhonhi. No accessory muscle use noted Abdomen: Soft, no tenderness, guarding, or distention noted. Bowel sound aus in all 4 quad. Extremities: No obvious pitting edema noted. Left arm AV fistula aneurysmal with small drainage opening covered with band-aid. No appreciable warmth) Erythema at AV fistula site improving. Assessment and plan: 1. ESRD on HD (TTS) - Patient could not receive dialysis on Sunday07/05/2019 because of drainage/concern from his left arm AV fistula - Pt continues to have no complaints, and erythema on AV fistula site improving. No obvious signs of cellulitis - Creat elevated 8.87 compared to baseline 5-6 - Vascular surgery, Dr. Vela has been consulted; plan for left arm AV fistula revision and temporary dialysis catheter placement - Nephrology Dr. Garcia on consultation, plan for hemodialysis from original AV fistula site today 2. Pancytopenia - possibly 2/2 prior chemotherapy, possibly 2/2 underlying dysplastic syndrome - Review of medical records indicates that this has been ongoing since 2012 - No evidence of bleeding - Patient on Ferrous sulfate and Darbepoetin per nephrology. 3. Chronic left foot ulcer - Patient follows with Dr. Mathur as an outpatient for wound care - Recently has had a debridement on 07/04/2019 - Continue with wound care based on outpatient recommendations 4. HTN - BP remains well-controlled - Not on home meds for hx of HTN 5. PMHx - cont home med Pravastatin 6. Hypothyroidism - cont home med Levothyroxine - s/p Thyroidectomy 7. Hx of Squamous cell CA of Tongue - s/p glossectomy and neck dissection 8. Chronic osteomyelitis of right clavicle -No obvious signs of erythema/drainage/pus on chest region -Pt no complaint at this time without fever/chills. Cont to observe s/p Renal transplant x2 DVT prophylaxis - c/w SCDs/TEDs VS,Fishbone, I+O VS, Fishbone, I+O Laboratory Tests 07/07/19 06:46 Red Blood Count 2.29 L, Mean Corpuscular Volume 105.2 H, Mean Corpuscular Hemoglobin 34.5 H, Mean Corpuscular Hemoglobin Concent 32.8, Red Cell Distribution Width 12.8, Calcium Level 8.3 L Vital Signs Date Time Temp Pulse Resp B/P (MAP) Pulse Ox O2 Delivery O2 Flow Rate FiO2 07/07/19 06:00 97.7 76 18 130/65 (86) 92 07/05/19 13:48 Room Air I&O- Last 24 Hours up to 6 AM 07/07/19 05:59 Intake Total 3070 ml Output Total 0 ml Balance 3070 ml GME ATTESTATION GME ATTESTATION My faculty preceptor for this patient encounter was physically present during the encounter and was fully available. All aspects of the patient interview, examination, medical decision making process, and medical care plan development were reviewed and approved by the faculty preceptor. The faculty preceptor is aware and concurs with the plan as stated in the body of this note and will attest to such by his/her cosignature. ATTENDING NOTE I, Maylin Isaac, have independently examined this patient and performed my own physical exam, as well as reviewed the documentation and edited where necessary. I have discussed in detail with the resident / student the findings and plan of treatment as documented by the resident / student and edited their note. I agree with their findings and treatment plan and have edited their documentation. I will continue to follow the patient during this hospital stay. JEANNETTE UMAÑA DO Jul 07, 2019 11:17 MAYLIN ISAAC MD Jul 07, 2019 14:35
[2019-07-07 18:00] VITALS: BP 130/70
[2019-07-07] MEDS: PRAVASTATIN 20 MG TAB PO SCH (20:03)
[2019-07-07] MEDS: PERCOCET 5MG/325MG TAB PO PRN (20:03)
[2019-07-07 20:29] VITALS: BP 125/63
--- NOTE | 2019-07-07 20:54 | IPN ---
DATE: 07/07/2019 SUBJECTIVE: The patient was seen and examined at the bedside today morning. He is afebrile, hemodynamically stable. He denies anymore bleeding from the AV fistula site. The patient has not been dialyzed for 4 days. I discussed the case with vascular surgery today and they plan to do angiogram of the AV fistula tomorrow and a revision of the fistula on 07/09/2019 along with placement of a new tunneled dialysis catheter. However vascular surgery said it is okay to use the AV fistula site if we avoid the ulcer site. The patient is going to have dialysis today. OBJECTIVE: Vital signs: Temperature is 97.7 degrees Fahrenheit, blood pressure 130/65, pulse is 76, respiratory rate of 18, saturating 92% on room air. Intake and output: There is no urine output recorded, weight in the bed scale is 80.2 kg. PHYSICAL EXAMINATION: General: The patient is awake, alert, oriented times three, laying in bed. No apparent distress. Head and neck exam: Pupils equally round and reactive to light. Old surgical scar on the chin in the neck. Neck is supple. There is no JVD. Cardiovascular: S1, S2, regular rate. No edema of the bilateral lower extremity. Respiratory: Chest is clear to auscultation bilaterally. Bilateral equal air entry. No rales or rhonchi. Abdomen: Soft. Positive bowel sounds. Nontender. Musculoskeletal: No clubbing or cyanosis. Pulses are 2+. ACCOUNTING MACHINE OPERATOR: No focal deficit, power is 5/5 in all extremities. AV axis: Left upper arm AV fistula with an ulceration site which is covered with a dressing, otherwise positive thrill and bruit. LABORATORY REVIEW: CBC showed WBC 2.3, hemoglobin 7.9, platelets of 100. BMP showed sodium 136, potassium 4.7, chloride 97, bicarbonate 29, BUN 111, creatinine is 8.8, calcium is 8.3, transferrin saturation is 18.5%, ferritin is 1462. CURRENT INPATIENT MEDICATIONS: The patient's medications were all reviewed by me. I have started the patient on IV Venofer 100 mg with dialysis. No other change in the medications today as compared with yesterday. ASSESSMENT/PLAN: 1. End-stage renal disease. The patient's regular dialysis days are Sunday, , Sunday. He has not been dialyzed in 4 days. He will be dialyzed today and via the left upper arm AV fistula avoiding the ulcer and bleeding site. Two liters of fluid will be removed as tolerated by his blood pressure. 2. Bleeding from the left upper arm AV fistula site. The patient will get the angiogram done tomorrow and revision of the fistula day after tomorrow and he will get a new catheter placement as well. I already discussed with vascular surgery. 3. Anemia in end-stage renal disease and iron-deficiency. Hemoglobin level is dropping. The patient is going to get a dose of Aranesp and Venofer with dialysis.
[2019-07-08] VITALS (8 sets, daily range): BP systolic 119–163; BP diastolic 62–75
[2019-07-08] MEDS: LEVOTHYROXINE 100MCG TABLET (0.1MG) PO SCH (06:10)
[2019-07-08] MEDS: LEVOTHYROXINE 25MCG TABLET (0.025MG) PO SCH (06:10)
[2019-07-08 07:26] LABS: HEMATOCRIT 27.1 % (42.0-52.0); HEMOGLOBIN 8.9 g/dl (13.5-17.5); MEAN CORPUSCULAR HEMOGLOBIN 34.8 pg (27.0-33.0); MEAN CORPUSCULAR HGB CONC 32.8 g/dl (32.0-36.5); MEAN CORPUSCULAR VOLUME 105.9 fl (80.0-96.0); PLATELET COUNT, AUTOMATED 112 10^3/uL (150-450); RED BLOOD COUNT 2.56 10^6/uL (4.30-6.10)
[2019-07-08 07:49] LABS: CALCIUM LEVEL 8.7 MG/DL (8.8-10.2); CREATININE FOR GFR 5.24 MG/DL (0.70-1.30); GLOMERULAR FILTRATION RATE 11.9 (>49)
[2019-07-08] MEDS: ASCORBIC ACID 500 MG TAB PO SCH (09:00)
[2019-07-08] MEDS: MULTIVITAMINS/MINERALS THERAP 1 TAB PO SCH (09:00)
[2019-07-08] MEDS: BISACODYL 5 MG TAB PO SCH (09:00)
[2019-07-08] MEDS: VITAMIN D 1,000 INTERNATIONAL UNITS TABLET PO SCH (09:00)
[2019-07-08] MEDS: ASPIRIN 81 MG ENTERIC TAB PO SCH (09:00)
[2019-07-08] MEDS ORDERED: BUPIVACAINE HCL 0.5% 10 ML VIAL As Ordered ONE ×2 (10:22→11:23)
[2019-07-08] MEDS ORDERED: HEPARIN 1,000 UNITS/ML 10ML VIAL (FOR RADIOLOGY& DIALYSIS ONLY) As Ordered ONE ×2 (10:22→11:20)
[2019-07-08] MEDS ORDERED: LIDOCAINE 2% MDV 20 ML VIAL As Ordered ONE ×2 (10:22→11:24)
--- NOTE | 2019-07-08 11:15 | IPNPDOC ---
Text Note Date of Service The patient was seen on 07/08/19. 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 Pt was examined at bedside today. He reported he had dialysis yesterday and continued to have no complaints including fever, chills, chest pain, palpitation, nausea, vomiting, abd pain, constipation, diarrhea, lightheadedness, or dizziness. Pt reported he had the left foot ulcer dressing changed 07/06/19 and the ulcer size had been improving. Objective: General: Pt is A&OX3, not in acute distress, comfortable and cooperative HEENT: Head normocephalic, atraumatic, no scleral injections noted b/l. Pt was having some dark green nasal discharge noted on kleenex which was non-mucous looking. Heart: RRR, murmur noted Lungs: CTA, no rales, wheezing, or rhonhi. No accessory muscle use noted Abdomen: Soft, no tenderness, guarding, or distention noted. Bowel sound aus in all 4 quad. Extremities: No obvious pitting edema noted. Left arm AV fistula aneurysmal with small drainage opening covered with band-aid. Assessment and plan: 1. ESRD on HD (TTS) - Patient could not receive dialysis on Sunday07/05/2019 because of drainage/concern from his left arm AV fistula - Pt continues to have no complaints, and erythema on AV fistula site improving. No obvious signs of cellulitis - Creat 5.24 improving after dialysis yesterday - Vascular surgery, Dr. Vela has been consulted; plan for left arm AV fistula revision and temporary dialysis catheter placement today - Nephrology Dr. Garcia on consultation; s/p dialysis 07/07/19 2. Pancytopenia - possibly 2/2 prior chemotherapy, possibly 2/2 underlying dysplastic syndrome vs other hematological dz - Pancytopenia since 2012 however lvl fluctuates are there were episodes without leukopenia or thrombocytopenia - Pancytopenia stable since admission. No evidence of bleeding. - Patient on IV iron and Darbepoetin per nephrology. Cont to f/u with CBC. Peripheral smear ordered 3. Chronic left foot ulcer - Patient follows with Dr. Mathur as an outpatient for wound care - Recently has had a debridement on 07/04/2019 - Continue with wound care based on outpatient recommendations - Dressing changed 07/06/19 4. Dark green nasal discharge -likely secondary to dry mucous membrane. Pt reported this is first episode. Reported otherwise asymptomatic -cont to observe 5. HTN - BP remains well-controlled - Not on home meds for hx of HTN - cont home med Pravastatin 6. Hypothyroidism - cont home med Levothyroxine - s/p Thyroidectomy 7. Hx of Squamous cell CA of Tongue - s/p glossectomy and neck dissection 8. Chronic osteomyelitis of right clavicle -No obvious signs of erythema/drainage/pus on chest region -Pt no complaint at this time without fever/chills. Cont to observe s/p Renal transplant x2 DVT prophylaxis - c/w SCDs/TEDs I saw and evaluated the patient. I agree with the findings and plan of care as documented in the above note VSValerie, I+O VSValerie, I+O Laboratory Tests 07/08/19 06:32 Red Blood Count 2.56 L, Mean Corpuscular Volume 105.9 H, Mean Corpuscular Hemoglobin 34.8 H, Mean Corpuscular Hemoglobin Concent 32.8, Red Cell Distribution Width 13.0, Calcium Level 8.7 L Vital Signs Date Time Temp Pulse Resp B/P (MAP) Pulse Ox O2 Delivery O2 Flow Rate FiO2 07/08/19 10:46 97.6 82 16 97 07/08/19 05:58 153/75 (101) 07/05/19 13:48 Room Air I&O- Last 24 Hours up to 6 AM 07/08/19 06:00 Intake Total 1880 ml Output Total 2500 ml Balance -620 ml JEANNETTE UMAÑA DO Jul 08, 2019 11:15 YEISON BAZZI MD Jul 12, 2019 10:23
[2019-07-08] MEDS ORDERED: ISOVUE-300 61% 50ML VIAL (Q9967) As Ordered ONE (11:19)
[2019-07-08] MEDS ORDERED: diphenhydrAMINE INJ 50MG/ML VIAL (J1200) As Ordered ONE (11:19)
[2019-07-08] MEDS ORDERED: PROTAMINE SULF INJ 50 MG/5 ML VIAL (J2720) As Ordered ONE (11:19)
[2019-07-08] MEDS ORDERED: MIDAZOLAM INJ 2 MG/2 ML VIAL (J2250) As Ordered ONE (11:20)
[2019-07-08] MEDS ORDERED: fentaNYL 100 MCG/2 ML INJECTION (J3010) As Ordered ONE (11:20)
--- NOTE | 2019-07-08 15:43 | ROOPDOC ---
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 POSTPROCEDURE DIAGNOSES: End-stage renal disease requiring access for renal replacement therapy dysfunctional left basilic vein transposition autogenous arteriovenous fistula with aneurysmal degeneration and bleeding. PROCEDURE: Ultrasound guided right internal jugular vein cannulation. Fluoroscopic guided right internal jugular vein 19 cm tip to cuff tunneled central venous catheter insertion. ATTENDING SURGEON: DR. Katy Vela M.D. RUBBER ROLLER GRINDER: Farnaz Lopez INDICATION:Patient is an 64-year-old male who has renal failure who requires access for renal replacement therapy. Patient previously dialyzes through a left basilic vein transposition autogenous arteriovenous fistula but was admitted to the emergency room with bleeding from the fistula after dialysis. The patient has large aneurysmal degeneration of his basilic vein transposition arteriovenous fistula will require revision and will undergo placement of a tunneled central venous catheter for hemodialysis access during his left arm arteriovenous fistula revision and recuperation. 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 Patient will undergo ultrasound and fluoroscopic guided placement of a right internal jugular vein tunneled central venous catheter. The procedure was described and explained to the patient in detail including drawing of pictures demonstrating the procedure and anatomy. Risks, benefits and alternative treatment options were discussed with the patient. Alternative treatment options included but were not limited to no intervention. Benefits included but were not limited to access for hemodialysis until permanent access for renal replacement therapy is created. Risks included, but were not limited to infection, bleeding, pneumothorax, hemothorax, cannulation site deep venous thrombosis, possible need for open surgical intervention, allergic reaction or complication from prepping and draping materials, possible need for transfusion of blood products, anesthetic complications, cerebrovascular accident, myocardial infarction, pulmonary embolus, deep venous thrombosis, loss of limb, loss of life, poor satisfaction and poor outcome. Risks of not performing the procedure included but were not limited to inability to obtain renal replacement therapy via hemodialysis and . The patient's questions were answered. The patient voices understanding of these risks, benefits and alternative treatment options. The patient voices acceptance of the risks associated with the procedure and agrees to proceed with an ultrasound and fluoroscopic guided right internal jugular vein tunneled central venous catheter insertion. There were no promises or guarantees made to the patient regarding the outcome or results of the procedure. ANESTHESIA: Local with 20 mL of 2% lidocaine mixed with 0.5% Marcaine. EBL: 10 ml. IVF: 100 ml. FLUORO TIME: 0.1 minutes. CONTRAST: None. COMPLICATIONS: None. DRAINS: None. SPECIMENS: None. IMPLANTS: Right internal jugular vein tunneled central venous catheter with use of a 19 cm tip to cuff [place] hemodialysis catheter. DESCRIPTION OF PROCEDURE: Patient was taken to the angiography suite, placed supine on the angiography room table and then prepped and draped in a standard surgical fashion. A timeout was conducted by myself and the team members in the room confirming the correct patient, procedure and laterality. Ultrasound guidance was used to cannulate the right internal jugular vein using a micropuncture needle after anesthetizing the overlying skin and subcutaneous tissue with 2% lidocaine mixed with 0.5% Marcaine. The cannulation of the right internal jugular vein was performed with real-time concurrent visualization of the entry of the micropuncture needle into the right internal jugular vein with a hardcopy image preserved. The ultrasound showed the right internal jugular vein to be widely patent, easily compressible and free of thrombus. The micropuncture wire was advanced through the micropuncture needle which was upsized to a micropuncture sheath. An Amplatz wire was advanced through the micropuncture sheath which was then used to sequentially dilate the right internal jugular vein under fluoroscopic guidance. An introducer sheath was then placed over the Amplatz wire and the wire was removed. The catheter was tunneled through a puncture wound in the right chest after anesthetizing the overlying skin and subcutaneous tissue with 2% lidocaine mixed with 0.5% Marcaine and brought out through a puncture wound at the right internal jugular vein entry site. The catheter was then advanced through the introducer sheath which had been positioned under fluoroscopic guidance. The catheter was positioned under fluoroscopic guidance with the tip in the superior vena cava right atrial junction. Both ports of the catheter were aspirated, noted to aspirate easily and then flushed with heparinized saline. The catheter was secured to the right anterior chest wall using #2-0 Prolene suture after anesthetizing the overlying skin and subcutaneous tissue with 2% lidocaine mixed with 0.5% Marcaine. The puncture wound in the right neck was closed using #4-0 Monocryl in inverted interrupted fashion. Steri-Strips and dressings were applied. The patient tolerated the procedure well. All instrument, sponge and needle counts were correct at the end of the case. There were no complications. Dr. Vela was present for and directed the entire case. Patient was transferred to the recovery area and subsequently to the floor in stable condition. The tunneled central venous catheter is stable for use for hemodialysis access. RADIOLOGIC SUPERVISION AND INTERPRETATION: The initial ultrasound showed the right internal jugular vein to be easily compressible, widely patent and free of thrombus. Ultrasound was used to guide cannulation of the right internal jugular vein with real-time concurrent visualization of the entry of the needle into the right internal jugular vein with a hardcopy image preserved. Fluoroscopic guidance was then used to sequentially dilate the right internal jugular vein, place an introducer sheath and position the catheter with the tip in the superior vena cava/right atrial junction. Final fluoroscopic image showed the catheter to be in good position and good alignment with no pneumo- or hemothorax noted with the tip in the superior vena cava/right atrial junction. The tunneled central venous catheter is stable for use for hemodialysis access. Joey Vela MD Jul 08, 2019 11:35
[2019-07-08 16:01] LABS: HEMOGLOBIN 9.3 g/dl (13.5-17.5); MEAN CORPUSCULAR HEMOGLOBIN 35.1 pg (27.0-33.0); MEAN CORPUSCULAR HGB CONC 33.2 g/dl (32.0-36.5); MEAN CORPUSCULAR VOLUME 105.7 fl (80.0-96.0); PLATELET COUNT, AUTOMATED 107 10^3/uL (150-450); RED BLOOD COUNT 2.65 10^6/uL (4.30-6.10); WHITE BLOOD COUNT 2.4 10^3/uL (4.0-10.0)
[2019-07-08] MEDS: PRAVASTATIN 20 MG TAB PO SCH (20:27)
[2019-07-08] MEDS: PERCOCET 5MG/325MG TAB PO PRN (20:28)
--- NOTE | 2019-07-08 21:00 | IPN ---
DATE: 07/08/2019 SUBJECTIVE The patient was seen and examined at the bedside today morning. He was dialyzed yesterday by the left arm fistula. He tolerated the dialysis procedure well. He denies any more bleeding from the fistula site. The patient is pending dialysis catheter placement and angiogram of the lower extremities by vascular surgery. It was clarified to me that he does not need angiogram of the AV fistula. He needs angiogram of the lower extremity. OBJECTIVE Vital signs: Temperature is 97.8 degrees Fahrenheit, blood pressure 160/67, pulse is 77, respiratory rate of 70, saturating 99% on room air. Intake and output: Urine output is not recorded. Ultrafiltration was 2.5 liters with hemodialysis today. Weight in the bed scale is 77.3. PHYSICAL EXAMINATION General: The patient is awake, alert, oriented times three, sitting up in the bed, in no apparent distress. Head and neck examination: Pupils are equally round and reactive to light. Old surgical scar on the neck and chin. Cardiovascular: S1, S2, regular rate. No edema of the bilateral lower extremities. Respiratory: Chest clear to auscultation bilaterally. Bilateral equal air entry. No rales or rhonchi. Abdomen: Soft. Positive bowel sounds. Nontender. No organomegaly. Musculoskeletal: The right lower extremity is shortened because of removal of the right hip prosthesis. FAMILY LAW MEDIATOR: No focal deficit. Power is 5/5 in bilateral upper extremities. AV access: Patient has left upper arm AV fistula with thrill and bruit. Fistula is aneurysmal. LAB REVIEW: CBC showed WBC of 2.4, hemoglobin 9.3, platelets of 107. BMP showed sodium 137, potassium 4, chloride 98, bicarb 32, BUN 48, creatinine is 5.2, calcium 8.7. Microbiology: Blood cultures are negative so far. CURRENT INPATIENT MEDICATIONS The patient's medications were all reviewed by me. There is no change in the medications today as compared with yesterday. ASSESSMENT/PLAN 1. End-stage renal disease. The patient's regular dialysis days are Sunday, , Sunday. However during this hospitalization he is being dialyzed according to Sunday, Sunday, Sunday schedule. Next hemodialysis will be tomorrow morning. 2. Ulceration of the left upper arm AV fistula site. The patient will get a tunneled dialysis catheter placement and revision of the fistula either during this hospitalization or as outpatient. 3. Anemia and end-stage renal disease. The patient is getting Venofer and Aranesp with dialysis, hemoglobin level is improving. No need of blood transfusion. 4. Chronic left foot ulcer. The patient is going to have the angiogram of the lower extremity by vascular surgery.
[2019-07-09 06:00] VITALS: BP 144/75
[2019-07-09] MEDS: LEVOTHYROXINE 25MCG TABLET (0.025MG) PO SCH (06:04)
[2019-07-09] MEDS: PERCOCET 5MG/325MG TAB PO PRN ×2 (06:04→19:11)
[2019-07-09] MEDS: LEVOTHYROXINE 100MCG TABLET (0.1MG) PO SCH (06:04)
[2019-07-09 07:21] LABS: CALCIUM LEVEL 8.8 MG/DL (8.8-10.2); CREATININE FOR GFR 6.74 MG/DL (0.70-1.30); GLOMERULAR FILTRATION RATE 8.9 (>49); POTASSIUM SERUM 4.6 MEQ/L (3.5-5.1)
[2019-07-09 07:22] LABS: HEMATOCRIT 26.4 % (42.0-52.0); HEMOGLOBIN 8.8 g/dl (13.5-17.5); MEAN CORPUSCULAR HEMOGLOBIN 34.9 pg (27.0-33.0); MEAN CORPUSCULAR HGB CONC 33.3 g/dl (32.0-36.5); MEAN CORPUSCULAR VOLUME 104.8 fl (80.0-96.0); PLATELET COUNT, AUTOMATED 110 10^3/uL (150-450); RED BLOOD COUNT 2.52 10^6/uL (4.30-6.10); WHITE BLOOD COUNT 2.9 10^3/uL (4.0-10.0)
[2019-07-09] MEDS ORDERED: HEPARIN 1,000 UNITS/ML 10ML VIAL (FOR RADIOLOGY& DIALYSIS ONLY) XX ONE (10:30)
[2019-07-09] MEDS ORDERED: HEPARIN 1,000 UNITS/ML 10ML VIAL (FOR RADIOLOGY& DIALYSIS ONLY) IV ONE (10:30)
[2019-07-09 11:29] LABS: THYROID STIMULATING HORMONE 0.172 uIU/ML (0.358-3.740)
--- NOTE | 2019-07-09 12:44 | IPNPDOC ---
Text Note Date of Service The patient was seen on 07/09/19. 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 Pt was examined at bedside today. He had undergone AV fistula repair yesterday and dialysis 07/07/19. He continued to report having no complaints including fever, chills, chest pain, palpitation, nausea, vomiting, abd pain, constipation, diarrhea, lightheadedness, dizziness, pain or warmth at AV fistula site. Pt reported he had the left foot ulcer dressing changed 07/06/19 and the ulcer size had been improving. Objective: General: Pt is A&OX3, not in acute distress, comfortable and cooperative HEENT: Head normocephalic, atraumatic, no scleral injections noted b/l. Heart: RRR, murmur noted Lungs: CTA, no rales, wheezing, or rhonhi. No accessory muscle use noted Abdomen: Soft, no tenderness, guarding, or distention noted. Bowel sound aus in all 4 quad. Extremities: No obvious pitting edema noted. Left arm AV fistula aneurysmal with 3 small drainage openings covered with band-aids. Erythema improved compared to prior Assessment and plan: 1. ESRD on HD (TTS) - Patient could not receive dialysis on Sunday07/05/2019 because of drainage/concern from his left arm AV fistula - Dr. Garcia consulted. Hemodialysis from original AV site 07/07/19. Pt will get dialysis today but likely return to usual dialysis schedule T, , S afterwards - Pt continues to have no complaints, and erythema on AV fistula site improving. No obvious signs of cellulitis - Vascular surgery, Dr. Vela has been consulted. S/p permacath placement and av fistula repair. 2. Pancytopenia - possibly 2/2 prior chemotherapy, possibly 2/2 underlying dys plastic syndrome vs other hematological dz - Pancytopenia since 2012 however lvl fluctuates are there were episodes without leukopenia or thrombocytopenia - Pancytopenia stable since admission. No evidence of bleeding. - Patient on IV iron and Darbepoetin per nephrology. Cont to f/u with CBC. Perip heral smear ordered - For macrocytic anemia, B12 and folate pending. TSH 0.172; free T4 pending 3. Chronic left foot ulcer - Patient follows with Dr. Mathur as an outpatient for wound care - Recently has had a debridement on 07/04/2019 - Continue with wound care based on outpatient recommendations - Dressing changed 07/06/19 4. Dark green nasal discharge, resolved -likely secondary to dry mucous membrane. Only 1 episode with no prior episode. Otherwise asymptomatic -cont to observe 5. HTN - BP remains well-controlled - Not on home meds for hx of HTN - cont home med Pravastatin 6. Hypothyroidism - cont home med Levothyroxine. TSH 0.172 low, free T4 pending. Cont decreasing levothyroxine dose - s/p Thyroidectomy 7. Hx of Squamous cell CA of Tongue - s/p glossectomy and neck dissection s/p Renal transplant x2 DVT prophylaxis - c/w SCDs/TEDs I saw and evaluated the patient. I agree with the findings and plan of care as documented in the above note VS,Valerie, I+O VS, Valerie, I+O Laboratory Tests 07/08/19 15:49 Red Blood Count 2.65 L, Mean Corpuscular Volume 105.7 H, Mean Corpuscular Hemoglobin 35.1 H, Mean Corpuscular Hemoglobin Concent 33.2, Red Cell Distribution Width 12.8 07/09/19 06:14 Red Blood Count 2.52 L, Mean Corpuscular Volume 104.8 H, Mean Corpuscular Hemoglobin 34.9 H, Mean Corpuscular Hemoglobin Concent 33.3, Red Cell Distribution Width 12.8 07/09/19 06:17 Calcium Level 8.8 Vital Signs Date Time Temp Pulse Resp B/P (MAP) Pulse Ox O2 Delivery O2 Flow Rate FiO2 07/09/19 06:34 18 07/09/19 06:00 98.4 85 144/75 (98) 99 07/08/19 14:00 2.0 07/05/19 13:48 Room Air I&O- Last 24 Hours up to 6 AM 07/09/19 06:00 Intake Total 440 ml Output Total 0 ml Balance 440 ml JEANNETTE UMAÑA DO Jul 09, 2019 12:44 YEISON BAZZI MD Jul 12, 2019 10:34
--- NOTE | 2019-07-09 12:49 | IPN ---
DATE OF SERVICE: 07/09/2019 SUBJECTIVE: The patient was seen and examined at the bedside today morning. He got a left leg angiogram done yesterday. He also got a tunneled right-sided hemodialysis catheter in the right IJ. The patient is going to have dialysis today in the afternoon. He denies any active complaints. OBJECTIVE: Vital Signs: Temperature is 98.4 degrees Fahrenheit. Blood pressure 144/75, pulse is 85, respiratory rate of 16, saturating 99% on room air. Intake and Output. There is no urine output recorded. Weight in the bed scale is 72.5 kg. PHYSICAL EXAMINATION: General: The patient is awake, alert, oriented times three, laying in the bed in no apparent distress. Head and Neck Exam: Extraocular muscles intact. Pupils equally round and reactive to light. Old surgical scars in the neck and chin. Cardiovascular: S1 and S2, regular rate. No edema of the bilateral lower extremities. Respiratory: Chest is clear to auscultation bilaterally. Bilateral equal air entry. No rales or rhonchi. Abdomen: Soft. Positive bowel sounds. Nontender. No organomegaly. Musculoskeletal: Shortened right lower extremity. Left upper arm AV fistula with positive thrill and bruit. PATIENT CARE ASSOCIATE: No focal deficit. Power is 5/5 in all extremities. AV AXIS: He has a left upper arm AV fistula and a right IJ tunneled hemodialysis catheter. LAB REVIEW: CBC showed a WBC of 2.9, hemoglobin 8.8, platelets of 110. BMP showed sodium 135, potassium 4.6, chloride 97, bicarb 31, BUN 64, creatinine 6.7. CURRENT INPATIENT MEDICATIONS: The patient's medications were all reviewed by me. There is no change in the medications today as compared with yesterday. ASSESSMENT/PLAN: 1. End-stage renal disease. The patient's regular dialysis days are Sunday, , Sunday. Inpatient schedule is Sunday, Sunday, Sunday. He will be dialyzed today in the afternoon. Ultrafiltration goal will be around 2 liters as tolerated by his blood pressure. 2. 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 The fistula will be rested now and when it heals he will get a revision of the fistula. He got a tunneled right IJ hemodialysis catheter which can be used for dialysis from now on. 3. Anemia secondary to end-stage renal disease. Hemoglobin level is still low. He continues to be on Aranesp and IV Venofer with dialysis. No need of blood transfusion. 4. Chronic left foot ulcer. The patient got the angiogram done yesterday. He reports that he will get another procedure done tomorrow morning.
[2019-07-09 13:01] LABS: FREE T4 1.62 NG/DL (0.76-1.46)
[2019-07-09 13:14] LABS: VITAMIN B12 LEVEL 1109 PG/ML (247-911)
[2019-07-09 13:16] LABS: FOLATE > 24.0 NG/ML (>5.4)
--- NOTE | 2019-07-09 15:19 | ROOPDOC ---
[facility] Report Of Operation Report of Operation DATE OF PROCEDURE: 07/08/2019 PREOPERATIVE DIAGNOSES: End-stage renal disease, left foot wounds POSTOPERATIVE DIAGNOSES: End-stage renal disease, left foot wounds PROCEDURE: PROCEDURE: Abdominal aortogram Pelvic aortogram and bilateral iliofemoral angiogram Selective left common femoral artery catheter placement with left lower extremity angiogram. Selective left superficial femoral artery catheter placement with left lower extremity angiogram. Right common femoral arteriotomy closure with a 5 Iraqi Mynx closure device. SURGEON: Dr. Katy Vela M.D. COPY WRITER: Carey Cheek and Farnaz Lopez INDICATION: Patient is a 64-year-old male with end-stage renal disease and nonhe aling left foot wounds.. Patient was evaluated and recommendation was to undergo an angiogram with possible angioplasty, stent and/or arthrectomy. The procedure was described and explained in detail to the patient including drawing of pictures demonstrating the procedure and pertinent anatomy. Risks, benefits and alternative treatment options were discussed with the patient. Alt ernative treatment options included but were not limited to no intervention. Benefits include but were not limited to evaluation of arterial inflow to the lower extremities with possible intervention improving blood flow to the lower extremities. Risks included but were not limited to infection, bleeding, renal failure requiring hemodialysis, retroperitoneal hematoma, possible need for surgical intervention, possible requirement for transfusion of blood products, contrast dye reaction, allergic reaction and/or complication from the prepping and draping materials, sedation related complication, scarring of the skin, bruising, nerve injury, anesthetic complications, cerebrovascular accident, myocardial infarction, pulmonary embolus, deep venous thrombosis, loss of limb, loss of life, poor satisfaction and poor outcome. Risks of not performing the procedure included but were not limited to worsening of current symptoms, worsening of atherosclerotic arterial occlusive disease resulting in possible limb loss and . Patient's questions were answered. Patient voices understanding of these risks, benefits and alternative treatment options. Patient voices acceptance of the risks associated with angiography with possible angioplasty, stent and/or atherectomy and agrees to proceed with the procedure excepting the associated risks of the procedure. No guarantees or promises were made to the patient or his family regarding the results or outcome of the procedure. ANESTHESIA: Local 20 mL of 2% lidocaine mixed with 0.5% Marcaine. SEDATION TIME: None FLUORO TIME: 2.2 minutes CONTRAST: 21.5 mL of Isovue 300 IVF: 100 mL ESTIMATED BLOOD LOSS: 18 mL. HEPARIN: None PROTAMINE: None COMPLICATIONS: None DRAINS: None SPECIMENS: None IMPLANTS: Right common femoral arteriotomy closure with a 5 Iraqi minx closure device PROCEDURE: The patient was taken to the angiography suite, placed supine on the angiography room table and prepped and draped in a standard surgical fashion. A procedural time out was performed by myself and the members of the team in the procedure room confirming the correct procedure, patient and laterality. The right common femoral artery was then cannulated with a micropuncture needle after anesthetizing the overlying skin and subcutaneous tissue with 2% lidocaine mixed with 0.5% Marcaine. The micropuncture wire was advanced through the micropuncture needle which was upsized to a micropuncture sheath. The Calvo wire was then advanced through the micropuncture sheath which was upsized to a 5 Iraqi sheath. The Omni flush catheter was advanced over the Calvo wire placed in the aorta at the level of the diaphragm and an abdominal aortogram was performed. The catheter was pulled down in the aorta to above the bifurcation of the iliac arteries and the pelvic aortogram and bilateral iliofemoral angiogram was performed. The catheter was then directed over the bifurcation of the iliac arteries using the Calvo wire and placed in the left common femoral artery selectively and a left lower extremity angiogram was performed. This demonstrated calcific atherosclerotic arterial occlusive disease in the left common femoral artery. The catheter was then advanced into the right superficial femoral artery selectively as far distal as possible, using the Calvo wire, and a selective left lower extremity selective superficial femoral artery angiogram was performed. This demonstrated mild atherosclerotic arterial occlusive disease. Catheters and wires were removed. The arteriotomy in the right common femoral artery was closed using a 5 Iraqi Mynx closure device with an additional 10 min. of adjunctive pressure applied for hemostasis, which was noted. Dressings were then applied. Patient tolerated the procedure well. There were no complications. Dr. Vela was present for and directed the entire case. The patient was transferred to the holding area and subsequently to the floor in stable condition. The procedure results and description were discussed with the patient in the postprocedure holding area with all of his questions being answered. RADIOLOGIC SUPERVISION AND INTERPRETATION: Abdominal aortogram: The aorta was widely patent with good filling of lumbar vessels. The superior mesenteric and celiac artery were widely patent with no stenosis noted. The thoracic aorta above the diaphragm appeared mildly aneurysmal with calcific plaquing along the wall. The superior mesenteric and celiac arteries appeared widely patent as well as the renal arteries bilaterally. There was diffuse calcific plaquing along the course of the infrarenal aorta into the common iliac arteries bilaterally Pelvic aortogram and bilateral iliofemoral angiogram: The common iliac, external iliac and internal iliac arteries were patent bilaterally with no obvious stenosis or occlusion noted but there was calcific plaquing along the periphery of the common iliac, external and internal iliac arteries. Selective left common femoral artery angiogram: The selective left common femoral artery catheter angiogram showed the left common femoral artery to be patent with severe calcification of the common femoral artery extending down to the bifurcation of the superficial femoral and profunda femoris arteries. There was no obvious stenosis or occlusion noted in the left common femoral artery. There was an approximate 50% stenosis in the profunda femoris artery shortly after the takeoff of the vessel. Selective left superficial femoral artery angiogram: The selective left superficial femoral artery angiogram showed the superficial femoral artery was patent into the popliteal artery the above and below knee popliteal artery showed mild luminal irregularities but no obvious stenosis or occlusion was noted in the superficial femoral or popliteal arteries. The posterior tibial artery was severely diseased and diminutive. The anterior tibial and peroneal arteries were patent along the course of the calf. The posterior tibial artery occluded in the distal calf. There was faster flow in the peroneal artery then the anterior tibial artery which was larger in size. The peroneal artery providing collaterals to a small severely diseased posterior tibial artery at the ankle the peroneal and anterior tibial arteries were patent to the ankle at which point they became severely diseased and flow into the foot was via collaterals. Intervention: None A 5 Iraqi Mynx closure device was used to close the arteriotomy in the right common femoral artery. CONCLUSION: The patient has diffuse atherosclerotic arterial occlusive disease with no significant stenoses or occlusions in the above-knee vessels. There is severe tibial peroneal arterial atherosclerotic occlusive disease especially in the distal calf and extending into the foot. PLAN: Continue with aggressive wound care. The patient is high risk for any intervention on his tibial vessels and in less there is threatened limb loss I would continue with conservative treatment of his wounds and continue to follow his atherosclerotic arterial occlusive disease. Joey Vela MD Jul 08, 2019 11:26
[2019-07-09 17:08] VITALS: BP 122/60
[2019-07-09] MEDS: ASCORBIC ACID 500 MG TAB PO SCH (17:57)
[2019-07-09] MEDS: BISACODYL 5 MG TAB PO SCH (17:57)
[2019-07-09] MEDS: VITAMIN D 1,000 INTERNATIONAL UNITS TABLET PO SCH (17:57)
[2019-07-09] MEDS: MULTIVITAMINS/MINERALS THERAP 1 TAB PO SCH (17:57)
[2019-07-09] MEDS: ASPIRIN 81 MG ENTERIC TAB PO SCH (17:57)
[2019-07-09] MEDS: PRAVASTATIN 20 MG TAB PO SCH (20:33)
[2019-07-09 22:16] VITALS: BP 115/69
[2019-07-09 22:21] VITALS: BP 132/73
[2019-07-10] MEDS: LEVOTHYROXINE 100MCG TABLET (0.1MG) PO SCH (05:47)
[2019-07-10] MEDS: BISACODYL 5 MG TAB PO SCH (05:47)
[2019-07-10] MEDS: VITAMIN D 1,000 INTERNATIONAL UNITS TABLET PO SCH (05:47)
[2019-07-10] MEDS: ASCORBIC ACID 500 MG TAB PO SCH (05:47)
[2019-07-10] MEDS: ASPIRIN 81 MG ENTERIC TAB PO SCH (05:47)
[2019-07-10] MEDS: MULTIVITAMINS/MINERALS THERAP 1 TAB PO SCH (05:47)
[2019-07-10 06:05] VITALS: BP 113/58
[2019-07-10 06:59] LABS: HEMATOCRIT 29.1 % (42.0-52.0); HEMOGLOBIN 9.3 g/dl (13.5-17.5); MEAN CORPUSCULAR HEMOGLOBIN 33.7 pg (27.0-33.0); MEAN CORPUSCULAR VOLUME 105.4 fl (80.0-96.0); PLATELET COUNT, AUTOMATED 154 10^3/uL (150-450); RED BLOOD COUNT 2.76 10^6/uL (4.30-6.10); WHITE BLOOD COUNT 2.8 10^3/uL (4.0-10.0)
[2019-07-10 07:17] LABS: CALCIUM LEVEL 8.8 MG/DL (8.8-10.2); CREATININE FOR GFR 4.5 MG/DL (0.70-1.30); GLOMERULAR FILTRATION RATE 14.2 (>49); POTASSIUM SERUM 3.9 MEQ/L (3.5-5.1)
--- NOTE | 2019-07-10 13:24 | IPN ---
DATE OF SERVICE: 07/10/2019 SUBJECTIVE: The patient was seen and examined at the bedside today morning. He was dialyzed yesterday. He tolerated the hemodialysis procedure well. He is afebrile and hemodynamically stable. He reports that he is going to have the left upper arm AV fistula revision as outpatient and he is getting ready to be discharged home today. OBJECTIVE: Vital Signs: Temperature is 97.1 degrees Fahrenheit, blood pressure 113/58, pulse is 84, respiratory rate of 20, saturating 96% on room air. Intake and Output: Urine output is not recorded. Ultrafiltration with hemodialysis was 2.5 liters. Weight in the bed scale is 77.1 kg. PHYSICAL EXAMINATION: General: The patient is awake, alert, oriented times three, laying in bed in no apparent distress. Head and Neck Exam: Extraocular muscles intact. Pupils equally round and reactive to light. Old surgical scars on neck and lower jaw. Cardiovascular: S1 and S2, regular rate. No edema of the bilateral lower extremities. Respiratory: Chest is clear to auscultation bilaterally. Bilateral equal air entry. No rales or rhonchi. Abdomen: Soft. Positive bowel sounds. No organomegaly. Musculoskeletal: Short right lower extremity because of history of surgical removal of right hip prosthesis. Left upper arm AV fistula with thrill and bruit. DIPPER AND DRIER: No focal deficit. Power is 5/5 in all extremities. LAB REVIEW: CBC showed a WBC of 12.8, hemoglobin 9.3, platelets of 154. BMP showed sodium of 136, potassium 3.9, chloride 99, bicarb 31, BUN 37, creatinine is 4.5. CURRENT INPATIENT MEDICATIONS: The patient's medications were all reviewed by me. There is no change in the medications today as compared with yesterday apart from a drop in the levothyroxine dose which has been changed to 300 mcg p.o. daily ASSESSMENT/PLAN: 1. End-stage renal disease. The patient's regular dialysis days are Sunday, , Sunday; however, he was being dialyzed according to Sunday, Sunday, Sunday schedule over here. Today is his regular day, but he was just dialyzed yesterday and he refused to have dialysis today, either inpatient or outpatient, and he agrees to come for dialysis as outpatient on Sunday. 2. Left upper arm AV fistula ulceration. The fistula is being rested. He will get the revision done as outpatient. He has a right IJ tunneled hemodialysis catheter which will be used as outpatient for dialysis. 3. Anemia in end-stage renal disease. The patient is getting Venofer and Aranesp. Hemoglobin level is improving. The rest of the anemia management will be done as outpatient. 4. Chronic left foot ulcer. The patient got the angiogram done by vascular surgery. Only conservative management was recommended because of diffuse atherosclerotic arterial occlusive disease. 5. Disposition. It is okay to discharge the patient from a nephrology standpoint. He will be followed up as outpatient.
--- NOTE | 2019-07-10 16:10 | DS.PDOC ---
Discharge Summary General Date of Admission Jul 05, 2019 at 11:21 Date of Discharge 07/10/19 Discharge Summary PROCEDURES PERFORMED DURING STAY: 1. Abdominal aortogram 2. Pelvic aortogram and bilateral iliofemoral angiogram 3. Selective left common femoral artery catheter placement with left lower extremity angiogram. 4. Selective left superficial femoral artery catheter placement with left lower extremity angiogram. 5. Right common femoral arteriotomy closure with a 5 Malay Mynx closure device. 6. right IJ tunneled hemodialysis catheter placement ADMITTING DIAGNOSES: 1. ESRD requiring maintenance hemodialysis, missing dialysis 2. Ulcerated AV fistula 3. Chronic left foot ulcer 4. PMH of hypertension. 5. Hypothyroidism; Thyroid cancer s/p thyroidectomy 6. Anemia of ESRD. 7. Tongue cancer s/p glossectomy and neck dissection. DISCHARGE DIAGNOSES: 1. ESRD on HD (TTS); ulcerated AV fistula 2. Pancytopenia - possibly 2/2 prior chemotherapy, possibly 2/2 underlying dysplastic syndrome vs other hematological dz 3. Chronic left foot ulcer 4. HTN 5. Hypothyroidism, thyroid cancer s/p thyroidectomy 6. Hx of squamous cell CA of tongue, s/p glossectomy and neck dissection. 7. s/p Renal transplant x2 COMPLICATIONS/CHIEF COMPLAINT: Complication Of Av Dialysis Fistula Esrd. HISTORY OF PRESENT ILLNESS: Patient is a 64 yo male with a PMH of ESRD on HD (TTS), s/p renal transplant, Hx of Squamous Cell CA of Tongue s/p glossectomy and neck dissection, Hx of Thyroid CA s/p thyroidectomy, and chronic left foot ulcer presented [facility] after missing hemodialysis as it could not be completed because of ulcerated left arm AV fistula/ drainage. HOSPITAL COURSE: Pt received dialysis on 07/07/19 and 07/09. He undergone right IJ tunneled hemodialysis catheter placement on 07/08/19. Angiogram of LLE was done by vascular surgeon, and only conservative management was recommended because of diffuse atherosclerotic arterial occlusive disease. It is noted by nephrology that pt's ulcerated AV fistula site is now rested, and will undergone repair outpt. He continued to report having no complaints including fever, chills, chest pain, palpitation, nausea, vomiting, abd pain, constipation, diarrhea, lightheadedness, dizziness, pain or warmth at AV fistula site. Pt reported he had the left foot ulcer dressing changed 07/06/19 and 07/09/19 and the ulcer size had been improving. DISCHARGE MEDICATIONS: Please see below. ALLERGIES: Please see below. PHYSICAL EXAMINATION ON DISCHARGE: VITAL SIGNS: Please see below. General: Pt is A&OX3, not in acute distress, comfortable and cooperative HEENT: Head normocephalic, atraumatic, no scleral injections noted b/l. Heart: RRR, murmur noted Lungs: CTA, no rales, wheezing, or rhonhi. No accessory muscle use noted Abdomen: Soft, no tenderness, guarding, or distention noted. Bowel sound aus in all 4 quad. Extremities: No obvious pitting edema noted. Left arm AV fistula aneurysmal with 3 small drainage openings covered with band-aids. Erythema improved compared to prior LABORATORY DATA: Please see below. IMAGING: CXR shows no acute cardiopulm process PROGNOSIS: Fair to poor ACTIVITY: As tolerated. DIET: Renal diet with nepro DISPOSITION: Home, Self-Care. DISCHARGE PLAN INSTRUCTIONS: 1. Patient will follow up with PCP as scheduled 2. Patient will receive dialysis as scheduled with nephrology ITEMS TO FOLLOWUP ON ON OUTPATIENT: 1. AV fistula site ulceration 2. Pancytopenia 3. Left foot ulcer DISCHARGE CONDITION: Stable. I saw and evaluated the patient. I agree with the findings and plan of care as documented in the documenters note. I spent 45 minutes coordinating this patient's discharge. Vital Signs/I&Os Vital Signs Date Time Temp Pulse Resp B/P (MAP) Pulse Ox O2 Delivery O2 Flow Rate FiO2 07/10/19 06:05 97.1 84 20 113/58 (76) 96 07/08/19 14:00 2.0 07/05/19 13:48 Room Air I&O- Last 24 Hours up to 6 AM 07/10/19 06:00 Intake Total 1380 ml Output Total 2500 ml Balance -1120 ml Laboratory Data Labs 24H Laboratory Tests 2 07/10/19 06:18: Nucleated Red Blood Cells % (auto) 0.0, Anion Gap 6L, Glomerular Filtration Rate 14.2L, Blood Urea Nitrogen 37H, Creatinine 4.50H, Sodium Level 136, Potassium Level 3.9, Chloride Level 99, Carbon Dioxide Level 31, Calcium Level 8.8 CBC/BMP Laboratory Tests 07/10/19 06:18 Red Blood Count 2.76 L, Mean Corpuscular Volume 105.4 H, Mean Corpuscular Hemoglobin 33.7 H, Mean Corpuscular Hemoglobin Concent 32.0, Red Cell Distribution Width 12.9, Calcium Level 8.8 Microbiology Microbiology 07/05/19 Blood Culture - Final, Complete NO GROWTH AFTER 5 DAYS 07/05/19 Blood Culture - Final, Complete NO GROWTH AFTER 5 DAYS Discharge Medications Scheduled Ascorbic Acid (Vitamin C) 500 Mg Tablet, 500 MG PO DAILY, (Reported) Aspirin (Aspirin EC) 81 Mg Tab, 81 MG PO DAILY, (Reported) Bisacodyl (Bisacodyl) 5 Mg Tab, 10 MG PO DAILY, (Reported) Cholecalciferol (Vitamin D3) (Vitamin D3) 1,000 Unit Tablet, 1,000 UNITS PO DAILY, (Reported) Levothyroxine Sodium (Levothyroxine Sodium) 200 Mcg Tablet, 200 MCG PO DAILY, (Reported) 325MCG TOTAL DOSE Levothyroxine Sodium (Synthroid) 25 Mcg Tablet, 25 MCG PO DAILY, (Reported) 325MCG TOTAL DOSE Levothyroxine Sodium (Synthroid) 50 Mcg Tablet, 100 MCG PO DAILY, (Reported) 325MCG TOTAL DOSE Multivitamin (Daily Multiple Vitamin) 1 Each Tablet, 1 TAB PO DAILY, (Reported) Nut.tx.imp.renal Fxn,Lac-Reduc (Nepro Carb Steady) 237 Ml Liquid, 1 LIQ PO 7XD, (Reported) Pravastatin Sodium (Pravastatin Sodium) 20 Mg Tab, 20 MG PO QHS, (Reported) Scheduled PRN Oxycodone HCl/Acetaminophen (Oxycodon-Acetaminophen 7.5-325) 1 Tab Tab, 1 TAB PO Q6H PRN for PAIN, (Reported) Allergies Coded Allergies: hydrochlorothiazide (Verified Allergy, Unknown, UNKNOWN REACTION from [facility], 02/14/19) taken 30 yrs ago methyldopa (Verified Allergy, Unknown, UNKNOWN REACTION from [facility], 01/29/19) JEANNETTE UMAÑA DO Jul 10, 2019 16:10 YEISON BAZZI MD Jul 12, 2019 10:39
== END 2019-07-10 13:45 | disposition home or self-care (01) | DRG 314 ==
LOC: EDBD 06:50 → M ED 06:50 → M ED INP 11:21 → M MS5PR 13:55
PROVIDERS: ADMIT Internal Medicine; ATTEND Internal Medicine
PROC: 5A1D70Z Performance of Urinary Filtration, Intermittent, Less than 6 Hours Per Day (ICD-10-PCS; principal; 2019-07-07)
PROC: B40DYZZ Plain Radiography of Aorta and Bilateral Lower Extremity Arteries using Other Contrast (ICD-10-PCS; 2019-07-08)
PROC: 02HV33Z Insertion of Infusion Device into Superior Vena Cava, Percutaneous Approach (ICD-10-PCS; 2019-07-08 10:45)
DX: T82.838A Hemorrhage due to vascular prosthetic devices, implants and grafts, initial encounter (principal); N18.6 End stage renal disease; D61.810 Antineoplastic chemotherapy induced pancytopenia; T82.49XA Other complication of vascular dialysis catheter, initial encounter; Y83.1 Surgical operation with implant of artificial internal device as the cause of abnormal reaction of the patient, or of later complication, without mention of misadventure at the time of the procedure; E89.0 Postprocedural hypothyroidism; N05.9 Unspecified nephritic syndrome with unspecified morphologic changes; Z85.810 Personal history of malignant neoplasm of tongue; Z99.2 Dependence on renal dialysis; Z85.850 Personal history of malignant neoplasm of thyroid; L97.529 Non-pressure chronic ulcer of other part of left foot with unspecified severity; D63.1 Anemia in chronic kidney disease; K21.9 Gastro-esophageal reflux disease without esophagitis; G47.00 Insomnia, unspecified; I70.0 Atherosclerosis of aorta; R16.1 Splenomegaly, not elsewhere classified; K57.90 Diverticulosis of intestine, part unspecified, without perforation or abscess without bleeding; I70.203 Unspecified atherosclerosis of native arteries of extremities, bilateral legs; Z96.643 Presence of artificial hip joint, bilateral; Z98.41 Cataract extraction status, right eye; Z98.42 Cataract extraction status, left eye; Z90.49 Acquired absence of other specified parts of digestive tract; Z85.828 Personal history of other malignant neoplasm of skin; Z88.8 Allergy status to other drugs, medicaments and biological substances; Z79.899 Other long term (current) drug therapy

== ENCOUNTER 2019-07-14 14:42 | Inpatient (IN) | payer MEDICARE, OTHER ==
[~2019-07-14] VITALS: Ht 157.5 cm; Wt 78.0 kg
[~2019-07-14 14:42] MED LIST changes: +BUPIVACAINE HCL 0.5% 10 ML VIAL As Ordered ONE; +HEPARIN SOD (PORCINE) 5000 UNITS/ML VIAL As Ordered ONE; +LIDOCAINE 2% MDV 20 ML VIAL As Ordered ONE; +NEPR1LIQ2 PO
[2019-07-14] MEDS ORDERED: D5W/0.2% SODIUM CHLORIDE 1,000 ML IV ONE (16:00)
[2019-07-14] MEDS ORDERED: MIDAZOLAM INJ 2 MG/2 ML VIAL (J2250) As Ordered ONE (18:31)
[2019-07-14] MEDS ORDERED: PROPOFOL 200 MG/20 ML VIAL As Ordered ONE (18:31)
[2019-07-14] MEDS ORDERED: ONDANSETRON 4MG/2ML VIAL (J2405) As Ordered ONE (18:31)
[2019-07-14] MEDS ORDERED: fentaNYL 100 MCG/2 ML INJECTION (J3010) As Ordered ONE (18:31)
[2019-07-14] MEDS ORDERED: HEPARIN SOD (PORCINE) 5000 UNITS/ML VIAL As Ordered ONE (19:06)
[2019-07-14] MEDS ORDERED: ePHEDrine SULFATE 25 MG/5 ML(5MG/ML) SYRINGE As Ordered ONE (19:28)
[2019-07-14] MEDS ORDERED: PROTAMINE SULF INJ 50 MG/5 ML VIAL (J2720) As Ordered ONE (19:44)
[2019-07-14] MEDS ORDERED: THROMBIN SOLN 20,000 UNITS KIT As Ordered ONE (19:44)
[2019-07-14] MEDS ORDERED: PHENYLephrine HCL 500 MCG/5 ML (100MCG/ML) SYRINGE (J2370) As Ordered ONE (19:49)
[2019-07-14] MEDS ORDERED: fentaNYL 100 MCG/2 ML INJECTION (J3010) IV PRN (20:30)
[2019-07-14] MEDS ORDERED: ONDANSETRON 4MG/2ML VIAL (J2405) IV PRN (20:30)
[2019-07-14] MEDS ORDERED: LR 1,000 ML IV SCH (20:30)
[2019-07-14] MEDS ORDERED: oxyCODONE 5MG TAB PO PRN (20:30)
[2019-07-14] MEDS ORDERED: METOCLOPRAMIDE INJ 10MG/2ML VIAL (J2765) IV PRN (20:30)
[2019-07-14] MEDS ORDERED: VITMTA PO (21:14)
[2019-07-14 21:21] VITALS: BP 117/57
[2019-07-14 21:54] VITALS: BP 118/58
[2019-07-14 23:38] VITALS: BP 115/63
[2019-07-15] VITALS (28 sets, daily range): BP systolic 60–114; BP diastolic 34–59
[2019-07-15] MEDS: PRAVASTATIN 20 MG TAB PO SCH ×2 (00:05→20:14)
[2019-07-15] MEDS ORDERED: PERCOCET 5MG/325MG TAB PO PRN ×2 (03:45)
[2019-07-15] MEDS: LEVOTHYROXINE 100MCG TABLET (0.1MG) PO SCH (05:17)
[2019-07-15] MEDS: BISACODYL 5 MG TAB PO SCH (08:57)
[2019-07-15] MEDS: VITAMIN D 1,000 INTERNATIONAL UNITS TABLET PO SCH (08:58)
[2019-07-15] MEDS: ASPIRIN 81 MG ENTERIC TAB PO SCH (08:58)
[2019-07-15] MEDS: MULTIVITAMINS/MINERALS THERAP 1 TAB PO SCH (08:58)
[2019-07-15] MEDS: ASCORBIC ACID 500 MG TAB PO SCH (08:58)
[2019-07-15] MEDS ORDERED: LEVOTHYROXINE 50MCG TABLET (0.05MG) PO SCH (09:00)
--- NOTE | 2019-07-15 10:17 | IPNPDOC ---
Date Seen The patient was seen on 07/15/19. Progress Note Vascular Surgery Dr Vela. HPI: 64year oldM with ESRD on HD as per Nephrology S/P AVF revision as per Dr Vela 07/14/19. POD1. The pt has had his bandage reinforced x 3 related to bleeding through the bandages. States his RUE is sore, states pain controlled. Denies any fevers, chills, weakness, fatigue, Headache, Chest Pain, Shortness of breath, cough, palpitations, abdominal pain, N/V/D or changes in bowel or bladder habits. Medical History 1. ESRD HD as per Nephrology. 2. History of prosthetic hip infection, status post right hip removal. 3. Tongue cancer status post tongue resection and neck dissection. 4. History of thyroid cancer, status post thyroidectomy. 5. Left foot ulcer, chronic 5. Chronic osteomyelitis of right clavicle. 6. S/p 2 kidney transplant 7. Hypothyroidism. 8. Interstitial lung disease 9. Diverticulosis. 10. Anemia of end-stage renal disease. 11. Hx of Cholecystitis 12. Umbilical hernia 13. PAD LLE 14. Chronic venous insufficiency 16. Splenomegaly 17. GERD 18. Insomnia Surgical History Right hip prosthesis Dr. Silva 11/2008 Left hip prosthesis 08/2007 Radial neck dissection for tongue cancer 2010 Renal tranplant 2 times [facility]. Cataract 12/2016 AV fistula creation left arm Umbilical hernia repair Cholecystectomy Varicose vein stripping Parathyroid surgeryX2 Numerous skin cancer removal PE: GEN: 64yoM, appears stated age. Alert and oriented x 3. HEENT: Normocephalic, atraumatic. Moist mucous membranes. CHEST: Regular rate and rhythm, +S1, +S2 LUNGS: Good A/E bilaterally. ABD: Round, soft, non-tender, non-distended. EXT: No lower extremity edema appreciated. SKIN: Katherine, dry, warm. Capillary refill <2sec. No rashes. The LUE is bandaged with bleeding noted on bandages. Bandage is removed, cesario intact there is oozing noted from proximal incision area. Holosystolic thrill is noted. A&P: 1. AVF S/P AVF revision Rt UE AVF 07/14/[address] Vela. POD1. Elevate RUE as needed. Pain control Bowel care. Continue to keep area clean and dry and monitor for bleeding. Labs this AM pending. 2. ESRD. HD as per Nephrology. Permcath Rt Chest in place. I have reviewed with Dr Alves. Plan to monitor as inpt for now. Plan for HD as inpt today. Dr Alves consulted and following pt as well. VS, I&O, 24H, Fishbone Vital Signs/I&O Vital Signs Date Time Temp Pulse Resp B/P (MAP) Pulse Ox O2 Delivery O2 Flow Rate FiO2 07/15/19 07:37 18 07/15/19 03:02 98.1 81 113/59 (77) 100 I&O- Last 24 Hours up to 6 AM 07/15/19 06:00 Intake Total 720 ml Output Total 0 ml Balance 720 ml Laboratory Data CBC/BMP Laboratory Tests 07/14/19 14:53 Attending Note Attending Note VASCULAR SURGICAL ATTENDING NOTE: Dr. Katy Vela M.D. The patient was seen on 07/15/19 at 10:38. ASSESSMENT: Patient is a 64-year-old male with end-stage renal disease who is postoperative day #1 status post revision of his left basilic vein transposition autogenous arteriovenous fistula. Patient has a little more pain today than last evening. The patient has some bruising through his incision and required frequent dressing changes. The patient also had placement of a tunneled central venous catheter approximately a week and a half ago which has also had continued oozing from the exit site. The dressing of the tunneled central venous catheter was changed in the operating room last evening. There is a good thrill in the left basilic vein transposition autogenous arteriovenous fistula. PLAN: Patient will remain in the hospital for monitoring of his left arm basilic vein transposition arteriovenous fistula revision. Patient's interval for his the medication will be decreased to every 4 hours rather than every 6 hours. Patient will undergo dialysis today with possible discharge home in 24 hours. Dipak Umanzor. was the attending vascular surgeon for this patient encounter. The patient was seen, examined, interviewed and evaluated independently by Dr. Alexander Vela M.D. Dr. Alexander Vela M.D. was fully available during the consultation evaluation. All aspects of the patient interview, examination, medical decision making process, and medical care plan development were reviewed and approved by Dr. Alexander Vela M.D. Dr. Alexander Vela M.D. is aware and concurs with the plan as stated in the body of this note and will attest to such by his/her cosignature. Palma Medel Jul 15, 2019 10:17 Joey Vela MD Jul 15, 2019 16:11
--- NOTE | 2019-07-15 10:26 | ROOPDOC ---
[facility] Report Of Operation Report of Operation DATE OF PROCEDURE: 07/14/2019 PREOPERATIVE DIAGNOSES: End-stage renal disease, dysfunctional left basilic vein transposition autogenous arteriovenous fistula with aneurysmal degeneration and bleeding. POSTOPERATIVE DIAGNOSES: End-stage renal disease, dysfunctional left basilic vein transposition autogenous arteriovenous fistula with aneurysmal degeneration and bleeding. PROCEDURE: Left basilic vein transposition autogenous arteriovenous fistula revision with reduction of aneurysmal basilic vein, removal of none viable skin and creation of advancement skin flaps for coverage of the revised fistula. SURGEON: Dr. Katy Vela M.D. VOCATIONAL NURSE LVN: None INDICATION: Patient is a 64-year-old male with end-stage renal disease who dialyzes through a left basilic vein transposition autogenous arteriovenous fistula which the patient has had for approximately 12 years. The fistula has become aneurysmal and the skin overlying the aneurysmal portions has thinned out and results in excessive bleeding during cannulation and recanalization at hemodialysis. The patient underwent placement of a tunneled central venous catheter for dialysis access and will undergo revision of the left basilic vein transposition autogenous arteriovenous fistula. There are 3 areas of large aneurysmal degeneration within the fistula requiring revision. The procedure was described and explained to the patient in detail including drawing of pictures demonstrating the procedure and the anatomy. Risks, benefits and alternative treatment options were discussed with the patient. Benefits included but were not limited to having a functioning arteriovenous fistula for hemodialysis access and removal of tunneled central venous catheter once the fistula is successfully being used. Alternative treatment options included but were not limited to no intervention with continued conservative management. Risks included but were not limited to infection, bleeding, worsening of renal failure requiring hemodialysis sooner than expected, failure of arteriovenous to maintain patency with thrombosis, failure of arteriovenous fistula to mature requiring secondary intervention, steal syndrome, anesthetic complication, bruising, scarring, nerve damage, possible need for transfusion of blood products,, possible need for further open surgical intervention, cerebrovascular accident, myocardial infarction, pulmonary embolus , deep venous thrombosis, reaction or complication from the prepping and draping materials, numbness, tingling, swelling of the extremity, loss of limb, loss of life and poor outcome. Risks of not performing the procedure included but were not limited to continued bleeding and possible . Patient's questions were answered. Pat ient voices understanding of the risks, benefits and alternative treatment options. Patient voices acceptance of these risks, benefits and alternative treatment options and consents to proceed with arteriovenous fistula formation.. There were no promises or guarantees made to the patient regarding the results and/or outcome of the procedure. ANESTHESIA: Local Mac. IVF: 300 mL. ESTIMATED BLOOD LOSS: 300 mL. HEPARIN: 6000 units PROTAMINE:None COMPLICATIONS:None DRAINS:None SPECIMENS: Aneurysmal basilic vein and overlying thinned nonviable skin IMPLANTS:None FINDINGS: Patient had a strong thrill in the fistula at the completion of the revision. There were 3 large aneurysmal areas that underwent reduction. DESCRIPTION OF PROCEDURE: Patient was taken to operating room, placed supine on the operating room table, and the patient was prepped and draped in a standard surgical fashion. A time-out was then conducted by myself and the team members in the room confirming the correct patient, procedure and laterality. The incision was made along the course of the autogenous arteriovenous fistula required revision after anesthetizing the overlying skin and subcutaneous tissue with 2% lidocaine mixed with 0.5% Marcaine. The basilic vein was sharply dissected free circumferentially. The normal basilic vein proximally and distally was encircled with vessel loops. The patient was given 6000 units of heparin for systemic anticoagulation. The aneurysmal areas of the basilic vein were then reduced in size using a TLC 75 stapler to staple across the aneurysmal tissue and reduce the size of the fistula to approximately 7-8 mm in that reg ion. This was performed for 3 areas of aneurysmal degeneration using the TCL 75 stapler with TCR 75 refills for a total of 3 areas of stapling. The redundant tissue over the aneurysmal fistula was resected back to healthy normal tissue. Skin flaps were then created using Bovie to undermined and create advancement skin flaps for coverage of the fistula. Hemostasis was obtained. The fistula was secured to the fascia of the muscle to position the fistula in a good location after which the advancement flaps were approximated using 2-0 Vicryl to approximate the deeper layers and cesario to approximate the skin. Dressings were then applied. Patient tolerated the procedure well. All instrument, sponge and needle counts were correct at the end of the case. Dr. Vela was present for and directed the entire case. Patient was transferred to the recovery room awake, alert and in stable condition. The procedure was explained and discussed with the patient in the postsurgical recovery area with all questions being answered. There was a strong thrill in the fistula at the completion of the revision. Joey Vela MD Jul 15, 2019 10:26
[2019-07-15] MEDS ORDERED: HEPARIN 1,000 UNITS/ML 10ML VIAL (FOR RADIOLOGY& DIALYSIS ONLY) XX ONE (10:30)
[2019-07-15 10:35] LABS: MEAN CORPUSCULAR HEMOGLOBIN 35.1 pg (27.0-33.0); MEAN CORPUSCULAR HGB CONC 33.3 g/dl (32.0-36.5); MEAN CORPUSCULAR VOLUME 105.3 fl (80.0-96.0); PLATELET COUNT, AUTOMATED 153 10^3/uL (150-450); RED BLOOD COUNT 2.28 10^6/uL (4.30-6.10); WHITE BLOOD COUNT 5.7 10^3/uL (4.0-10.0)
[2019-07-15 10:59] LABS: CALCIUM LEVEL 8.3 MG/DL (8.8-10.2); CREATININE FOR GFR 6.51 MG/DL (0.70-1.30); GLOMERULAR FILTRATION RATE 9.3 (>49); POTASSIUM SERUM 3.9 MEQ/L (3.5-5.1)
[2019-07-15] MEDS: PERCOCET 5MG/325MG TAB PO PRN ×2 (11:18→16:29)
[2019-07-15 17:58] LABS: HEMATOCRIT 24.6 % (42.0-52.0); HEMOGLOBIN 8.1 g/dl (13.5-17.5)
[2019-07-15] MEDS ORDERED: NS 500 ML IV ONE ×2 (18:45→19:45)
--- NOTE | 2019-07-15 20:51 | CR ---
DATE OF CONSULTATION: 07/15/2019 NEPHROLOGY CONSULTATION FOR: Katy Vela MD REASON FOR CONSULTATION: To assist in the management of end-stage renal disease. HISTORY OF PRESENT ILLNESS: Mr. Chen is a 64-year-old gentleman with known history of end-stage renal disease and has been receiving maintenance hemodialysis. He recently developed bleeding from his left arm arteriovenous (AV) fistula. He had revision of fistula done yesterday and was kept overnight for observation due to oozing and bleeding. He is due for dialysis today. The patient did have significant blood loss due to bleeding from the surgical site, and he was advised to stay for today at least due to need for monitoring. The patient was adamant this morning that he wanted to go home and wanted to go to outpatient dialysis clinic. Nephrology consultation was requested as the patient is in need for dialysis. I did see him and discussed with the patient and explained the risks, and the patient decided to stay. He is now being changed to inpatient status, and we will plan to dialyze him here and continue monitoring for need for transfusion and further intervention for his bleeding from the surgical site following AV fistula revision surgery. PAST MEDICAL HISTORY: Significant for: 1. End-stage renal disease requiring maintenance hemodialysis. 2. History of prior renal transplant times two which have failed. 3. 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 4. History of thyroid cancer, status post thyroidectomy. 5. Surgical hypothyroidism. 6. History of interstitial lung disease. 7. History of anemia. 8. History of infected right hip prosthesis, status post removal of hip prosthesis. PAST SURGICAL HISTORY: Significant for: 1. Tongue resection and radical neck dissection for squamous cell carcinoma of tongue. 2. Left upper arm AV fistula surgery and recent bleeding. 3. History of thyroidectomy. 4. History of pectoral flap and reconstruction of his neck. 5. History of prior kidney transplants times two. 6. History of removal of infected prosthetic right hip. ALLERGIES: He has allergy to METHYLDOPA and HYDROCHLOROTHIAZIDE. MEDICATIONS: His home medications include aspirin 81 mg daily, vitamin C 500 mg daily, vitamin D 1000 units daily, levothyroxine 350 mcg daily, multivitamin one tablet daily, Percocet 7.5/325 mg one tablet every 6 hours as needed for pain, pravastatin 20 mg daily. PERSONAL AND SOCIAL HISTORY: The patient has no history of alcohol or drug use. He denies any smoking. FAMILY HISTORY: Negative for end-stage renal disease. REVIEW OF SYSTEMS: Denies any headache. There is no fever or chills. He had extensive tongue and neck dissection surgery following his carcinoma. He has difficulty with speech. He also had a tracheostomy, which has been now closed. Cardiovascular system is negative for dyspnea or chest pain. Respiratory system is negative for cough or hemoptysis. Gastrointestinal (GI) system is significant for difficulty swallowing. He has been on Nepro 6-7 cans per day. He has difficulty swallowing solid food. He had a G-tube placed which has been now removed. Genitourinary () system is significant for end-stage renal disease. Musculoskeletal system is significant for infected right hip prosthesis which has been removed. He had bleeding from his left arm fistula for which he underwent surgery. He did bleed through the night and nursing staff reports that dressings were soaked, which has been changed this morning. Endocrine system is significant for surgical hypothyroidism. No history of diabetes. Psychosocial system is negative for depression or anxiety. Musculoskeletal system is significant for chronic back pain also, and he has been chronically narcotic dependent. Neurological system is negative for seizures or stroke. PHYSICAL EXAMINATION: The patient is awake without any acute distress. Temperature is 99 degrees Fahrenheit, heart rate about 110 per minute and respiratory rate is 20 per minute. Blood pressure 96/58 mmHg and oxygen saturation 98%. His head is atraumatic. Neck and jaw deformity following his surgery is unchanged. All surgical incisions on his neck and jaw are healed. He is a Perma-Cath in right upper chest. He has a large dressing on the left upper arm. There is some swelling on the shoulder area. His left forearm is also swollen. Heart exam reveals tachycardia, irregular heart sounds. Lungs have diminished breath sounds but no rales or wheezing. Abdomen: Soft and nontender. Bowel sounds are present. Extremities: Without any cyanosis or clubbing. There is a dressing on his left upper arm AV fistula site. Left forearm is swollen. Neurologically he is awake, alert and oriented times three. LABORATORY DATA: WBC count is 5.7, hemoglobin 8.0 and hematocrit 24.0. Platelets 153. Sodium 137, potassium 3.9, CO2 of 26, BUN 64 and creatinine 6.51. Glucose 121 and calcium 8.3. PROBLEMS: 1. End-stage renal disease. The patient is due for dialysis today and I have explained to him that he needs to be monitored here due to significant blood loss and ongoing oozing from his surgical site. He has agreed now to stay and receive his hemodialysis here. He is being switched to inpatient status, and we will plan to dialyze him this morning. No heparin will be used. 2. Acute blood loss anemia. The patient has significant drop in his hemoglobin and hematocrit with acute blood loss. He is likely to require transfusion. We will recheck his hemoglobin and hematocrit later on. 3. Hypotension. Blood pressure has been chronically somewhat low; however, this is lower than his usual baseline. Probably related to blood loss. We will need to monitor him closely. I feel that transfusion is likely to help with his hypotension. 4. Hypothyroidism. His chronic medications including his thyroid replacement should be continued. Thank you for involving me in the care of Mr. Chen. We will follow him along with you.
[2019-07-15] MEDS: ACETAMINOPHEN TAB 650MG DOSE (2X325MG) PO PRN (21:47)
[2019-07-16] VITALS (45 sets, daily range): BP systolic 71–105; BP diastolic 36–55
[2019-07-16 05:10] LABS: HEMATOCRIT 25.7 % (42.0-52.0); HEMOGLOBIN 8.3 g/dl (13.5-17.5); MEAN CORPUSCULAR HEMOGLOBIN 32.3 pg (27.0-33.0); MEAN CORPUSCULAR HGB CONC 32.3 g/dl (32.0-36.5); PLATELET COUNT, AUTOMATED 153 10^3/uL (150-450); RED BLOOD COUNT 2.57 10^6/uL (4.30-6.10); WHITE BLOOD COUNT 12.8 10^3/uL (4.0-10.0)
[2019-07-16 05:19] LABS: CALCIUM LEVEL 8.1 MG/DL (8.8-10.2); CREATININE FOR GFR 4.67 MG/DL (0.70-1.30); GLOMERULAR FILTRATION RATE 13.6 (>49); POTASSIUM SERUM 4.1 MEQ/L (3.5-5.1)
[2019-07-16] MEDS: LEVOTHYROXINE 100MCG TABLET (0.1MG) PO SCH (06:18)
[2019-07-16] MEDS: ASCORBIC ACID 500 MG TAB PO SCH (08:00)
[2019-07-16] MEDS: MULTIVITAMINS/MINERALS THERAP 1 TAB PO SCH (08:00)
[2019-07-16] MEDS: VITAMIN D 1,000 INTERNATIONAL UNITS TABLET PO SCH (08:00)
[2019-07-16] MEDS: ASPIRIN 81 MG ENTERIC TAB PO SCH (08:00)
[2019-07-16] MEDS: BISACODYL 5 MG TAB PO SCH (08:00)
--- NOTE | 2019-07-16 10:08 | REP ---
CHEST, PORTABLE: AP portable view of the chest is performed and compared to prior study of 07/05/2019. There is no acute infiltrate or pulmonary edema. There is left ventricular prominence with calcification of the thoracic aorta. The mediastinal silhouette is unchanged. Right double lumen central venous catheter is seen at the distal tip in the right atrium. IMPRESSION: No acute infiltrate. Electronically Signed by Tim Person MD 07/17/2019 08:06 A
[2019-07-16] MEDS: PERCOCET 5MG/325MG TAB PO PRN ×3 (10:19→21:01)
--- NOTE | 2019-07-16 11:22 | IPNPDOC ---
Date Seen The patient was seen on 07/16/19. Progress Note Vascular Surgery Dr Vela. HPI: 64year oldM with ESRD on HD as per Nephrology S/P AVF revision as per Dr Vela 07/14/19. POD2. The pt is seen in the ICU after being transferred 07/15/19 related to hypotension. The pt has received 1.5L IVF and 2 u PRBCs. This AM the pt denies weakness, dizziness. States he has back pain. Denies any fevers, chills, Headache, Chest Pain, Shortness of breath, cough, palpitations, abdominal pain, N/V/D or changes in bowel or bladder habits. Medical History 1. ESRD HD as per Nephrology. 2. History of prosthetic hip infection, status post right hip removal. 3. Tongue cancer status post tongue resection and neck dissection. 4. History of thyroid cancer, status post thyroidectomy. 5. Left foot ulcer, chronic 5. Chronic osteomyelitis of right clavicle. 6. S/p 2 kidney transplant 7. Hypothyroidism. 8. Interstitial lung disease 9. Diverticulosis. 10. Anemia of end-stage renal disease. 11. Hx of Cholecystitis 12. Umbilical hernia 13. PAD LLE 14. Chronic venous insufficiency 16. Splenomegaly 17. GERD 18. Insomnia Surgical History Right hip prosthesis Dr. Silva 11/2008 Left hip prosthesis 08/2007 Radial neck dissection for tongue cancer 2010 Renal tranplant 2 times [facility]. [facility]. Cataract 12/2016 AV fistula creation left arm Umbilical hernia repair Cholecystectomy Varicose vein stripping Parathyroid surgeryX2 Numerous skin cancer removal PE: GEN: 64yoM, appears stated age. Alert and oriented x 3. HEENT: Normocephalic, atraumatic. Moist mucous membranes. CHEST: Regular rate and rhythm, +S1, +S2 LUNGS: Good A/E bilaterally. ABD: Round, soft, non-tender, non-distended. EXT: The LUE is bandaged with bleeding noted on bandages. Bandage/JACQUES wrap is re moved, cesario intact there is still oozing noted from proximal incision area. Holosystolic thrill is noted. Bruit auscultated. Radial and ulnar pulses Left wrist are unable to obtain with doppler, fingers are slightly cool B/L, cap refill 3-4 secs. Wound posterior aspect Lt ankle, appears to be healing. There is no drainage/redness. Monophasic doppler pulse Rt PT, otherwise unable to obtain pulses. Cap refill feet 3-4 secs. Feet are warm to touch. A&P: 64year oldM with ESRD on HD as per Nephrology S/P AVF revision as per Dr Vela 07/14/19. POD2. The pt is reviewed and discussed with Dr Vela. The pt's current VS, physical exam, AM labs are reviewed with Dr Vela this AM. Plan as reviewed with Dr Vela, 1. AVF S/P AVF revision Rt UE AVF 07/14/[address] Vela. POD2. Pain control Bowel care. Continue to keep area clean and dry, dry dressing. Continue to monitor for bleeding. 2. Hypotension. S/P IVF 1.5 L. MAP 71 BP 96/52 monitor. 3. Leukocytosis. Tmax 100.1 WBC 12.8 this AM. Will request CXR. Request BC pt states he does not make any urine. no signs of infection at incision site LUE. foot wound Left posterior ankle appears to be healing, does not appear infected. no drainage from Permcath Rt chest. 4. Anemia. S/P PRBC x 2 u 07/15/19. Discussed with Dr Alves this AM, 1 u PRBC ordered this AM. Will recheck CBC post transfusion. Pt with persistent oozing noted from incision. PLT 153, no change. Will also check PT/INR/PTT. Await results, possibly consider Platelet transfusion as well. 5. ESRD. HD as per Nephrology. Permcath Rt Chest in place. Dr Alves following. ADDENDUM. Called from ICU for update on Pt current status. Temp 101.1 HR 111 BP 82/44. 1 u PRBCs ordered as per Nephrology this AM, repeat H/H post transfusion at 4 pm today. INR 1.47. PTT 44.0 The pt is not on AC. Add LFTS, no previous baseline. Reviewed with Dr Vela, Vitamin k 10 mg po x 1. Transfuse 1 u Platelets. Pt with no obvious source of infection, but persistent fever. Additional BC ordered. BC x 1 this AM pending. CXR NAD. No UA/UC as Pt states does not make urine. Persistent oozing of blood from LUE but no wound drainage from post op site LUE, no drainage from LLE foot wound or from Permcath site noted. Request medicine Clt for further recommendations. Spoke with Dr Paul who will see pt. VS, I&O, 24H, Valerie Vital Signs/I&O Vital Signs Date Time Temp Pulse Resp B/P (MAP) Pulse Ox O2 Delivery O2 Flow Rate FiO2 07/16/19 10:19 16 07/16/19 10:00 93 94/52 (66) 07/16/19 07:01 100.1 98 07/16/19 06:00 2.0 I&O- Last 24 Hours up to 6 AM 07/16/19 05:59 Intake Total 1880 ml Output Total 2000 ml Balance -120 ml Laboratory Data 24H LABS Laboratory Tests 2 07/16/19 04:43: Nucleated Red Blood Cells % (auto) 0.0, Anion Gap 9, Glomerular Filtration Rate 13.6L, Blood Urea Nitrogen 40H, Creatinine 4.67H, Sodium Level 139, Potassium Level 4.1, Chloride Level 102, Carbon Dioxide Level 28, Calcium Level 8.1L 07/16/19 10:50: CBC/BMP Laboratory Tests 07/15/19 17:48 07/16/19 04:43 Red Blood Count 2.57 L, Mean Corpuscular Volume 100.0 H, Mean Corpuscular Hemoglobin 32.3, Mean Corpuscular Hemoglobin Concent 32.3, Red Cell Distribution Width 18.6 H, Calcium Level 8.1 L Microbiology Microbiology 07/16/19 Blood Culture, Received Pending Attending Note Attending Note VASCULAR SURGICAL ATTENDING NOTE: Dr. Katy Vela M.D. ASSESSMENT: Patient with hypotension secondary to hypovolemia and acute blood loss related to his revision of his left basilic vein transposition arteriovenous fistula. Patient was transferred to the ICU for critical management. Patient is receiving blood and IV fluids. Patient also had low- grade fever. The incision is clean with no obvious signs of infection and there is a good thrill in the arteriovenous fistula. PLAN: Continue fluid resuscitation with IV fluids and packed red blood cells. Continue ICU monitoring. Continue to follow hemoglobin and hematocrit. Dipak Umanzor was the attending vascular surgeon for this patient encounter. The patient was seen, examined, interviewed and evaluated independently by Dr. Alexander Sorianoey M.D. was fully available during the consultation evaluation. All aspects of the patient interview, examination, medical decision making process, and medical care plan development were reviewed and approved by Dr. Alexander Vela M.D. is aware and concurs with the plan as stated in the body of this note and will attest to such by his/her cosignature. Palma Medel Jul 16, 2019 11:22 Joey Vela MD Jul 24, 2019 14:15
[2019-07-16 11:24] LABS: INR 1.47; PROTHROMBIN TIME 17.6 SECONDS (11.8-14.0)
[2019-07-16] MEDS: ACETAMINOPHEN TAB 650MG DOSE (2X325MG) PO PRN (12:32)
[2019-07-16 13:48] LABS: ALBUMIN 2.7 GM/DL (3.2-5.2); BILIRUBIN,DIRECT 0.5 MG/DL (0.0-0.2); BILIRUBIN,TOTAL 1.1 MG/DL (0.2-1.0); TOTAL PROTEIN 5.8 GM/DL (6.4-8.2)
[2019-07-16] MEDS ORDERED: PHYTONADIONE 5 MG TAB PO ONE (14:00)
[2019-07-16 17:55] LABS: HEMATOCRIT 27.4 % (42.0-52.0); HEMOGLOBIN 9.2 g/dl (13.5-17.5)
--- NOTE | 2019-07-16 18:06 | CR ---
DATE OF CONSULTATION: 07/16/2019 CONSULTATION REPORT FOR: Dr. Joey Vela REASON FOR CONSULTATION: Hospitalist group was consulted to evaluate the patient's fever and leukocytosis. He had a recent hospitalization from 07/05/2019 to 07/10/2019 for an ulcerated arteriovenous (AV) fistula, pancytopenia probably from chemotherapy, secondary underlying dysplastic syndrome, chronic left foot ulcer, end-stage renal disease requiring dialysis, developed bleeding from his left AV fistula and was admitted for this. He required blood and blood products. Hospitalist group was consulted because he is having a leukocytosis and running a fever. His medical history was just outlined during his last hospitalization and will not be repeated here. PHYSICAL EXAMINATION: Blood pressure 83/48, maximum temperature (T-max) was 101.3. GENERAL APPEARANCE: He is lying in bed, resting comfortably, speaking in full sentences and says he actually feels quite well. HEENT: Unremarkable. LUNGS: Clear. HEART: Regular rate and rhythm with a 1/6 systolic ejection murmur. His left upper extremity is bandaged. ABDOMEN: Soft, nontender. No masses. No peripheral edema. He had profuse diarrhea just became in the room. The odor of which suggests possible Clostridium (C) difficile infection. LABORATORY DATA: Potassium is 4.1. Electrolytes are unremarkable. White count is 12.8, hemoglobin 8.3, platelets 153. INR 1.47. IMPRESSION: Fever. 1. I suspect Clostridium (C) difficile colitis. I will order a gastrointestinal (GI) panel. He is anuric so we are not getting a urine culture. Chest x-ray has already been done and shows no infiltrate. Blood culture has already been ordered. We will followup on results of the GI panel as they become available. 2. End-stage renal disease. Nephrology is already consulted. 3. Hypotension. IV fluids have been ordered by Dr. Vela's attending physician.
--- NOTE | 2019-07-16 19:05 | MHIPN ---
DATE: 07/16/2019 Mr. Chen is seen this morning on his bedside in intensive care unit. He was transferred to intensive care unit yesterday afternoon due to hypotension. He received one liter of normal saline bolus and two units of packed red blood cells (RBCs). His blood pressure is still in the 90s. However, he is feeling well. He has chronic pain in his neck and back but denies any nausea or vomiting. Nursing staff reports that he also had fever this morning and his foot ulcer was checked and his left arm arteriovenous (AV) fistula dressing was changed. No signs of infection noted. He still has some oozing from his surgical site on the left arm. PHYSICAL EXAMINATION: Temperature 100.1 degrees Fahrenheit, heart rate 112 per minute and respiratory rate 18 per minute. Blood pressure 97/50 mmHg and oxygen saturation is 98%. His head is atraumatic. Neck is supple and jugular venous distention (JVD) not abnormally elevated. Old surgical scars on his lower jaw and neck are all well-healed. His heart sounds are tachycardiac but regular. Lungs sound clear to auscultation. Abdomen is soft and nontender and bowel sounds are present. Extremities without any cyanosis or clubbing. Left arm swelling is unchanged. Dressing has minimal staining from bleeding from his left upper arm surgical incision site. Neurologically, he is awake, alert and oriented times three. LABORATORY DATA: Today's laboratories show WBC count 12.8, hemoglobin 8.3 and hematocrit 25.7. Platelets 153. INR 1.47. PTT is 44.0. Sodium is 139, potassium 4.1, CO2 28, BUN 40 and creatinine 4.67. PROBLEMS: 1. End-stage renal disease. The patient was dialyzed yesterday and his next dialysis will be scheduled for tomorrow. His electrolytes are within normal range. 2. Acute blood loss anemia. The patient received two units of packed red blood cells (RBCs) and also received one unit of normal saline one liter yesterday. He also had oozing from his fistula site with ongoing blood loss. We will give him one more unit of packed RBCs today. His volume status is still reasonably well-compensated so there is no risk for hypervolemia. 3. Hypotension. Blood pressure improved compared to yesterday after IV fluid. Now, he has low-grade fever and leukocytosis. Blood cultures have been drawn and they are pending. Currently not on any antibiotic.
[2019-07-16] MEDS: PRAVASTATIN 20 MG TAB PO SCH (20:04)
[2019-07-16] MEDS ORDERED: PANTOPRAZOLE 40MG INJ (PROTONIX) (C9113) IV ONE (23:15)
[2019-07-17] VITALS (23 sets, daily range): BP systolic 74–137; BP diastolic 38–59
[2019-07-17] MEDS: PERCOCET 5MG/325MG TAB PO PRN ×5 (01:18→18:46)
[2019-07-17 05:04] LABS: BASO % 0.2 % (0.0-1.0); EOS # 0.1 10^3/uL (0.0-0.5); EOS % 0.6 % (0.0-3.0); HEMATOCRIT 24.2 % (42.0-52.0); LYMPH % 1.7 % (24.0-44.0); MEAN CORPUSCULAR HEMOGLOBIN 32.1 pg (27.0-33.0); MEAN CORPUSCULAR HGB CONC 33.1 g/dl (32.0-36.5); MEAN CORPUSCULAR VOLUME 97.2 fl (80.0-96.0); MONO # 0.2 10^3/uL (0.0-0.8); MONO % 2.2 % (0.0-5.0); NEUTROPHILS # 7.9 10^3/uL (1.5-8.5); NEUTROPHILS % 94.5 % (36.0-66.0); PLATELET COUNT, AUTOMATED 144 10^3/uL (150-450); RED BLOOD COUNT 2.49 10^6/uL (4.30-6.10); WHITE BLOOD COUNT 8.4 10^3/uL (4.0-10.0)
[2019-07-17 05:13] LABS: INR 1.28; PROTHROMBIN TIME 15.7 SECONDS (11.8-14.0)
[2019-07-17 05:14] LABS: LYMPH # 0.1 10^3/uL (1.5-5.0)
[2019-07-17 05:34] LABS: ALBUMIN 2.4 GM/DL (3.2-5.2); BILIRUBIN,TOTAL 0.6 MG/DL (0.2-1.0); CALCIUM LEVEL 7.7 MG/DL (8.8-10.2); CREATININE FOR GFR 5.96 MG/DL (0.70-1.30); GLOMERULAR FILTRATION RATE 10.3 (>49); POTASSIUM SERUM 4.3 MEQ/L (3.5-5.1); TOTAL PROTEIN 5.8 GM/DL (6.4-8.2)
[2019-07-17] MEDS: LEVOTHYROXINE 100MCG TABLET (0.1MG) PO SCH (06:04)
[2019-07-17] MEDS: ASPIRIN 81 MG ENTERIC TAB PO SCH (09:15)
[2019-07-17] MEDS: VITAMIN D 1,000 INTERNATIONAL UNITS TABLET PO SCH (09:15)
[2019-07-17] MEDS: MULTIVITAMINS/MINERALS THERAP 1 TAB PO SCH (09:15)
[2019-07-17] MEDS: BISACODYL 5 MG TAB PO SCH (09:15)
[2019-07-17] MEDS: ASCORBIC ACID 500 MG TAB PO SCH (09:15)
[2019-07-17] MEDS ORDERED: PHYTONADIONE 5 MG TAB PO ONE (10:00)
--- NOTE | 2019-07-17 10:23 | IPNPDOC ---
Date Seen The patient was seen on 07/17/19. Progress Note Vascular Surgery Dr Vela. HPI: 64year oldM with ESRD on HD as per Nephrology S/P AVF revision as per Dr Vela 07/14/19. POD3. The pt has received 1 u Platelets and 3 u PRBCs. BP 90s this am. Currently on HD in ICU. Continues to have oozing from LUE incision. This AM the pt denies weakness, dizziness. States he has back pain. Denies any fevers, chills, Headache, Chest Pain, Shortness of breath, cough, palpitations, abdominal pain, N/V/D or changes in bowel or bladder habits. Medical History 1. ESRD HD as per Nephrology. 2. History of prosthetic hip infection, status post right hip removal. 3. Tongue cancer status post tongue resection and neck dissection. 4. History of thyroid cancer, status post thyroidectomy. 5. Left foot ulcer, chronic 5. Chronic osteomyelitis of right clavicle. 6. S/p 2 kidney transplant 7. Hypothyroidism. 8. Interstitial lung disease 9. Diverticulosis. 10. Anemia of end-stage renal disease. 11. Hx of Cholecystitis 12. Umbilical hernia 13. PAD LLE 14. Chronic venous insufficiency 16. Splenomegaly 17. GERD 18. Insomnia Surgical History Right hip prosthesis Dr. Silva 11/2008 Left hip prosthesis 08/2007 Radial neck dissection for tongue cancer 2010 Renal tranplant 2 times [facility]. [facility]. Cataract 12/2016 AV fistula creation left arm Umbilical hernia repair Cholecystectomy Varicose vein stripping Parathyroid surgeryX2 Numerous skin cancer removal PE: GEN: 64yoM, appears stated age. Alert and oriented x 3. HEENT: Normocephalic, atraumatic. Moist mucous membranes. CHEST: Regular rate and rhythm, +S1, +S2 LUNGS: Good A/E bilaterally. ABD: Round, soft, non-tender, non-distended. EXT: The LUE is bandaged with bleeding noted on bandages. Bandage/Coban is removed, diffuse edema of LUE noted, cesario intact there is still oozing noted from proximal incision area. Holosystolic thrill is noted. Bruit auscultated. Wound posterior aspect Lt ankle, appears to be healing. There is no drainage/redness. A&P: 64year oldM with ESRD on HD as per Nephrology S/P AVF revision as per Dr Vela 07/14/19. POD3. The pt is reviewed and discussed with Dr Vela. Dr Vela at bedside this AM. Plan as reviewed with Dr Vela, 1. AVF S/P AVF revision Rt UE AVF 07/14/[address] Vela. POD3. Pain control Bowel care. Continue to keep area clean and dry, dry dressing. JACQUES wrap over dressing. Elevate LUE. Continue to monitor for bleeding. 2. Hypotension. BP 9os systolic this AM. monitor. 3. Leukocytosis. Afebrile since 12:25 07/16/19. WBC decreased this AM. CXR 07/16/19 NAD. BC x 2. GI panel neg. pt states he does not make any urine. no signs of infection at incision site LUE. foot wound Left posterior ankle appears to be healing, does not appear infected. no drainage from Permcath Rt chest. Medicine continuing to follow. 4. Anemia. S/P PRBC x 3 u. additional 2 units ordered as per Nephrology this AM. Monitor. 5. Coagulopathy Pt with persistent oozing noted from incision. Dry dressing/JACQUES wrap/elevation. S/P 1 u Plts 07/16/19. PLT 147 this AM. INR 1.28 decreased from 1.47. S/P Vitamin k 10 mg po x 1 07/16/19. LFTs WNL. DDAVP ordered as per Nephrology. Vitamin k 10 mg po x 1 ordered this AM. Monitor for cont'd bleeding. 5. ESRD. HD as per Nephrology. Permcath Rt Chest in place. Dr Alves following. 6. hypocalcemia. Ca 7.7. being addressed as per Nephrology. HD this AM. Plan to recheck Calcium level post dialysis. VS, I&O, 24H, Fishbone Vital Signs/I&O Vital Signs Date Time Temp Pulse Resp B/P (MAP) Pulse Ox O2 Delivery O2 Flow Rate FiO2 07/17/19 09:17 17 97 07/17/19 06:15 98 95/49 07/17/19 04:00 99.0 07/16/19 06:00 2.0 I&O- Last 24 Hours up to 6 AM 07/17/19 06:00 Intake Total 2355 ml Output Total 300 ml Balance 2055 ml Laboratory Data 24H LABS Laboratory Tests 2 07/16/19 10:50: Prothrombin Time 17.6H, Prothromb Time International Ratio 1.47, Activated Partial Thromboplast Time 44.0H 07/17/19 04:43: Prothrombin Time 15.7H, Prothromb Time International Ratio 1.28, Immature Granulocyte % (Auto) 0.8, White Blood Count 8.4, Red Blood Count 2.49L, Hemoglobin 8.0L, Hematocrit 24.2L, Mean Corpuscular Volume 97.2H, Mean Corpuscular Hemoglobin 32.1, Mean Corpuscular Hemoglobin Concent 33.1, Red Cell Distribution Width 18.0H, Platelet Count 144L, Neutrophils (%) (Auto) 94.5H, Lymphocytes (%) (Auto) 1.7L, Monocytes (%) (Auto) 2.2, Eosinophils (%) (Auto) 0.6, Basophils (%) (Auto) 0.2, Neutrophils # (Auto) 7.9, Lymphocytes # (Auto) 0.1L, Monocytes # (Auto) 0.2, Eosinophils # (Auto) 0.1, Basophils # (Auto) 0.0, Nucleated Red Blood Cells % (auto) 0.0, Anion Gap 10, Glomerular Filtration Rate 10.3L, Blood Urea Nitrogen 60H, Creatinine 5.96H, Sodium Level 135L, Potassium Level 4.3, Chloride Level 99, Carbon Dioxide Level 26, Calcium Level 7.7L, Aspartate Amino Transf (AST/SGOT) 34, Alanine Aminotransferase (ALT/SGPT) 32, Alkaline Phosphatase 109, Total Bilirubin 0.6, Total Protein 5.8L, Albumin 2.4L, Albumin/Globulin Ratio 0.71L CBC/BMP Laboratory Tests 07/16/19 17:36 07/17/19 04:43 Red Blood Count 2.49 L, Mean Corpuscular Volume 97.2 H, Mean Corpuscular He moglobin 32.1, Mean Corpuscular Hemoglobin Concent 33.1, Red Cell Distribution Width 18.0 H, Neutrophils (%) (Auto) 94.5 H, Lymphocytes (%) (Auto) 1.7 L, Monocytes (%) (Auto) 2.2, Eosinophils (%) (Auto) 0.6, Basophils (%) (Auto) 0.2, Neutrophils # (Auto) 7.9, Lymphocytes # (Auto) 0.1 L, Monocytes # (Auto) 0.2, Eosinophils # (Auto) 0.1, Basophils # (Auto) 0.0, Calcium Level 7.7 L, Aspartate Amino Transf (AST/SGOT) 34, Alanine Aminotransferase (ALT/SGPT) 32, Alkaline Phosphatase 109, Total Bilirubin 0.6, Total Protein 5.8 L, Albumin 2.4 L Microbiology Microbiology 07/16/19 Blood Culture, Received Pending 07/16/19 Blood Culture - Preliminary, Resulted No growth after 24 hours . All specim... 07/16/19 Gastrointestinal Tract Panel (PCR) - Final, Complete Attending Note Attending Note VASCULAR SURGICAL ATTENDING NOTE: Dr. Katy Vela M.D. ASSESSMENT: Patient with continued bleeding post repair and revision of his autogenous left basilic vein transposition arteriovenous fistula. Patient has received blood transfusion as well as platelets due to continued losing from the incision. Patient had a similar amount of oozing and bleeding from his tunneled central venous catheter insertion site which was placed approximately a week ago. PLAN: Patient will be given DDAVP and will continue to follow his hematocrit and hemoglobin. Patient may require surgical evaluation and exploration of the incision and wound from the revision of his arteriovenous fistula. Dipak Umanzor was the attending vascular surgeon for this patient encounter. The patient was seen, examined, interviewed and evaluated independently by Dr. Alexander Vela M.D. Dr. Alexander Vela M.D. was fully available during the consultation evaluation. All aspects of the patient interview, examination, medical decision making process, and medical care plan development were reviewed and approved by Dr. Alexander Vela M.D. Dr. Alexander Vela M.D. is aware and concurs with the plan as stated in the body of this note and will attest to such by his/her cosignature. Palma Medel Jul 17, 2019 10:23 Joey Vela MD Jul 24, 2019 14:13
[2019-07-17] MEDS ORDERED: DESMOPRESSIN ACETATE 20 MCG in NS 50 ML IV ONE (11:00)
[2019-07-17] MEDS ORDERED: MORPHINE 4 MG/ML 1ML VIAL/SYRINGE (J2270) IV ONE (13:00)
[2019-07-17 13:25] LABS: ALBUMIN 2.8 GM/DL (3.2-5.2); CALCIUM LEVEL 9.2 MG/DL (8.8-10.2); CREATININE FOR GFR 1.87 MG/DL (0.70-1.30); GLOMERULAR FILTRATION RATE 39.1 (>49); PHOSPHORUS LEVEL 1.6 MG/DL (2.5-4.9); POTASSIUM SERUM 3.8 MEQ/L (3.5-5.1)
--- NOTE | 2019-07-17 17:48 | IPN ---
DATE: 07/17/2019 Mr. Chen is seen this morning in intensive care unit. He is currently being dialyzed on his bedside. He continues to have oozing from his left arm surgical incision site where he had arteriovenous (AV) fistula revision done. Yesterday, the patient was hypotensive and did receive some fluid boluses and transfusion with improvement in blood pressure. This morning, he is feeling better and denies any dyspnea or chest pain. He has no nausea or vomiting and tolerating his liquid diet very well. PHYSICAL EXAMINATION: Temperature is 99 degrees Fahrenheit, heart rate 98 per minute and respiratory rate 18 per minute. Blood pressure 95/50 mmHg and oxygen saturation 98% on room air. Head is atraumatic. Neck is supple and without jugular venous distention (JVD) or thyromegaly. Heart sounds are regular and without a pericardial friction rub. Lungs sound clear to auscultation. Abdomen is soft and nontender and bowel sounds normal. Extremities without any cyanosis or clubbing. Left arm is swollen with large dressing. Dr. Vela opened the dressing in our presence and the patient had significant soaking of all the pads and dressing. He did have some clot formation at the site where he was oozing from his surgical incision. One spot is still oozing. New dressing was applied by Dr. Vela. Neurologically, he is awake, alert and oriented times three. LABORATORY DATA: Today's laboratories show WBC count 8.4, hemoglobin 8.0 and hematocrit 24.2. Platelets are 144. Sodium 135, potassium 4.3, CO2 26, BUN 60 and creatinine 5.96. His calcium level was 7.7. PROBLEMS: 1. End-stage renal disease. The patient is being dialyzed and he is tolerating dialysis treatment well. We will remove about two liters of fluid as tolerated. 2. Acute blood loss anemia. The patient has significant oozing of blood from his left arm incision site and he will be given two units of packed red blood cells (RBCs) today. Due to persistent oozing from his surgical incision, we will give him a dose of DDAVP 20 mcg intravenously, one dose after dialysis. He is also being given vitamin K by Dr. Vela. 3. Hypotension, most likely related to blood loss and blood pressure has now improved. He is not on any antihypertensive medications and we will continue to monitor him closely. 4. Status post surgical revision of left arm arteriovenous (AV) fistula. The patient currently has a Perma-Cath in place which is currently being used for dialysis. He has significant oozing from the surgical site which is now slowing down and we hope that it will stop. Dressing has been changed and a pressure dressing applied by Dr. Vela.
--- NOTE | 2019-07-17 18:34 | IPNPDOC ---
Text Note Date of Service The patient was seen on 07/17/19. NOTE SUBJECTIVE: Mr. Chen is a 64-year-old male status post AV graft revision to the left upper extremity. He has had difficulty with bleeding. He is seen in the intensive care unit while undergoing hemodialysis. OBJECTIVE: Physical exam: HENT: Neck is supple with no adenopathy or thyromegaly Cardiovascular: Regular rate and rhythm. Respiratory: Occasional coarse breath sounds. Abdomen: Nondistended, nontender. Extremities: Left upper extremity-bleeding has soaked multiple layers of dressings, some clot has formed at the incision site Right lower extremity--it is approximately 3 cm ulcer behind the ankle. There is no bleeding or drainage or foul odor 1. Patient has had revision of his left upper extremity AV fistula with complications. Management is deferred to the vascular surgery service. 2. End-stage renal disease. Patient will dialyze under the supervision of the nephrology service. VS,Fishbone, I+O VS, Fishbone, I+O Laboratory Tests 07/17/19 04:43 Red Blood Count 2.49 L, Mean Corpuscular Volume 97.2 H, Mean Corpuscular Hemoglobin 32.1, Mean Corpuscular Hemoglobin Concent 33.1, Red Cell Distribution Width 18.0 H, Neutrophils (%) (Auto) 94.5 H, Lymphocytes (%) (Auto) 1.7 L, Monocytes (%) (Auto) 2.2, Eosinophils (%) (Auto) 0.6, Basophils (%) (Auto) 0.2, Neutrophils # (Auto) 7.9, Lymphocytes # (Auto) 0.1 L, Monocytes # (Auto) 0.2, Eosinophils # (Auto) 0.1, Basophils # (Auto) 0.0, Calcium Level 7.7 L, Aspartate Amino Transf (AST/SGOT) 34, Alanine Aminotransferase (ALT/SGPT) 32, Alkaline Phosphatase 109, Total Bilirubin 0.6, Total Protein 5.8 L, Albumin 2.4 L 07/17/19 12:22 Anion Gap 10 Vital Signs Date Time Temp Pulse Resp B/P (MAP) Pulse Ox O2 Delivery O2 Flow Rate FiO2 07/17/19 15:00 121 17 81/46 (58) 98 07/17/19 12:00 99.8 07/16/19 06:00 2.0 I&O- Last 24 Hours up to 6 AM 07/17/19 06:00 Intake Total 2355 ml Output Total 300 ml Balance 2055 ml DENISE BYNUM MD Jul 17, 2019 18:34
[2019-07-17] MEDS: PRAVASTATIN 20 MG TAB PO SCH (20:00)
[2019-07-18] VITALS (54 sets, daily range): BP systolic 83–156; BP diastolic 47–74
[2019-07-18] MEDS: PERCOCET 5MG/325MG TAB PO PRN ×4 (00:16→14:48)
[2019-07-18] MEDS: LEVOTHYROXINE 100MCG TABLET (0.1MG) PO SCH (05:22)
[2019-07-18 05:56] LABS: INR 1.16; PROTHROMBIN TIME 14.5 SECONDS (11.8-14.0)
[2019-07-18 06:03] LABS: ALBUMIN 2.4 GM/DL (3.2-5.2); CALCIUM LEVEL 8.7 MG/DL (8.8-10.2); CREATININE FOR GFR 4.05 MG/DL (0.70-1.30); POTASSIUM SERUM 4.2 MEQ/L (3.5-5.1); TOTAL PROTEIN 6.3 GM/DL (6.4-8.2)
[2019-07-18 06:35] LABS: BASO % 0.2 % (0.0-1.0); HEMATOCRIT 30.7 % (42.0-52.0); HEMOGLOBIN 9.9 g/dl (13.5-17.5); LYMPH % 2.4 % (24.0-44.0); MEAN CORPUSCULAR HEMOGLOBIN 31.3 pg (27.0-33.0); MEAN CORPUSCULAR HGB CONC 32.2 g/dl (32.0-36.5); MEAN CORPUSCULAR VOLUME 97.2 fl (80.0-96.0); MONO # 0.2 10^3/uL (0.0-0.8); MONO % 2.8 % (0.0-5.0); NEUTROPHILS # 5.4 10^3/uL (1.5-8.5); NEUTROPHILS % 94.1 % (36.0-66.0); PLATELET COUNT, AUTOMATED 145 10^3/uL (150-450); RED BLOOD COUNT 3.16 10^6/uL (4.30-6.10); WHITE BLOOD COUNT 5.7 10^3/uL (4.0-10.0)
[2019-07-18 06:43] LABS: LYMPH # 0.1 10^3/uL (1.5-5.0)
[2019-07-18] MEDS: VITAMIN D 1,000 INTERNATIONAL UNITS TABLET PO SCH (08:17)
[2019-07-18] MEDS: ASCORBIC ACID 500 MG TAB PO SCH (08:17)
[2019-07-18] MEDS: BISACODYL 5 MG TAB PO SCH (08:17)
[2019-07-18] MEDS: ASPIRIN 81 MG ENTERIC TAB PO SCH (08:17)
[2019-07-18] MEDS: MULTIVITAMINS/MINERALS THERAP 1 TAB PO SCH (08:17)
[2019-07-18] MEDS ORDERED: VANCOMYCIN HCL 500 MG in D5W MINI-BAG PLUS 100 ML IV ONE ×2 (09:00→10:00)
--- NOTE | 2019-07-18 09:54 | PHACANCOPD ---
PHARMACY VANCOMYCIN DOSING Pt Demographics Demographics Patient Age:64 , Weight:75.200 , Gender: male Adjusted Body Weight Date: 07/18/19, Adjusted Body Weight: [62.84] Kg Events Past 24 Hours Events Past 24 Hours: YES: Dialysis; NO: Diuretic Therapy, Change in CrCl, Fever, Elevation in WBC, Pending Diagnostics, Pending Procedures, Other Vancomycin Vancomycin indication: GPC IN CLUSTERS Vancomycin Target Ranges: 15-20 mcg/ml Vancomycin Load Y/N: Yes Load Dose Date Time Vancomycin Load Dose: 1.5G Date: 07/18/19 Time: PATIENT WENT TO OR AROUND 9:30 TODAY, SPOKE WITH NURSE SHE WILL TRY TO HANG 500 BAG DURING SURGERY AND WILL GET 1G DOSE AFTER Vancomycin Dose Date: 07/18/19. Current Vancomycin Dose: [1G HD] Intermittent Dosing?: No Labs Labs Vital Signs Label Value Date Time Patient Temperature 99.0 degrees F 07/18/19 0400 Temperature Source Temporal 07/18/19 0400 Item Value Date Time White Blood Count 8.4 10^3/uL 07/17/19 0443 White Blood Count 5.7 10^3/uL 07/18/19 0451 White Blood Count 12.8 10^3/uL H 07/16/19 0443 Creatinine 4.67 MG/DL H 07/16/19 0443 Creatinine 5.96 MG/DL H 07/17/19 0443 Creatinine 1.87 MG/DL H # 07/17/19 1222 Creatinine 4.05 MG/DL H # 07/18/19 0451 Micro Microbiology 07/16/19 Blood Culture - Preliminary, Resulted 07/16/19 Blood Culture - Preliminary, Resulted 07/16/19 Gastrointestinal Tract Panel (PCR) - Final, Complete Creatinine Clearance Date:07/18/19. Creatinine Clearance: [14.6]. Assessment and Plan Maintaining Current Dose?: Yes Reason for dose change: No Dose Change Pharmacist Note Pharmacist Note Date: 07/18/19. Pharmacist note: Patient is being treated for a possible MRSA infection, micro came back with GPC in clusters. Patient has been treated at our facility in the past for MSSA but no previous treatment history for MRSA. He is currently a T,T,S HD patient. Today's labs: Scr= 4.05 CrCl= 14.6. Load dose of 1.5G was given on 07/18 during/after surgery. The OR nurse called and stated patient was spiking a fever preop and wanted to get the Vanco started but she was not sure if they would hang the bag in the OR. I told her as long as the patient receives the two doses as close together as possible they would be ok because they are not clearing the med. We will continue to monitor and follow up as necessary. ANAND QUIÑONES, PHARMACY Jul 18, 2019 09:54
[2019-07-18] MEDS ORDERED: ACETAMINOPHEN 650 MG SUPP PR ONE (10:00)
[2019-07-18] MEDS ORDERED: VANCOMYCIN HCL 1,000 MG, VIAL MATE ADAPTER 1 EACH in D5W 250 ML IV ONE (11:00)
[2019-07-18] MEDS ORDERED: LIDOCAINE 2% INJ 100 MG/5 ML SDV (FOR ANES.) As Ordered ONE (12:31)
[2019-07-18] MEDS ORDERED: PROPOFOL 200 MG/20 ML VIAL As Ordered ONE ×2 (12:31→13:15)
[2019-07-18] MEDS ORDERED: BUPIVACAINE HCL 0.5% 10 ML VIAL As Ordered ONE (12:32)
[2019-07-18] MEDS ORDERED: CONRAY-60 60% 50ML VIAL (Q9961) As Ordered ONE (12:32)
[2019-07-18] MEDS ORDERED: fentaNYL 100 MCG/2 ML INJECTION (J3010) As Ordered ONE ×2 (12:32→13:53)
[2019-07-18] MEDS ORDERED: MIDAZOLAM INJ 2 MG/2 ML VIAL (J2250) As Ordered ONE (12:32)
[2019-07-18] MEDS ORDERED: HEPARIN SOD (PORCINE) 5000 UNITS/ML VIAL As Ordered ONE (12:33)
[2019-07-18] MEDS ORDERED: LIDOCAINE 2% MDV 20 ML VIAL As Ordered ONE (12:33)
[2019-07-18] MEDS ORDERED: PHENYLephrine HCL 500 MCG/5 ML (100MCG/ML) SYRINGE (J2370) As Ordered ONE (13:13)
[2019-07-18] MEDS ORDERED: THROMBIN SOLN 20,000 UNITS KIT As Ordered ONE (13:17)
[2019-07-18] MEDS: fentaNYL 100 MCG/2 ML INJECTION (J3010) IV PRN ×7 (13:53→20:34)
[2019-07-18] MEDS ORDERED: PERCOCET 5MG/325MG TAB As Ordered ONE (13:53)
[2019-07-18] MEDS ORDERED: NS 1,000 ML IV SCH (14:00)
--- NOTE | 2019-07-18 14:20 | IPNPDOC ---
Date Seen The patient was seen on 07/18/19. Progress Note Vascular Surgery Dr Vela. HPI: 64year oldM with ESRD on HD as per Nephrology S/P AVF revision as per Dr Vela 07/14/19. POD4. The pt has received 1 u Platelets and 6 u PRBCs. This am went to change the pt's dressing, JACQUES wrap was removed and the pt was noted to have bleeding from his wound which quickly soaked the pillow and dressing. pressure was applied and held until the pt was taken to the OR as per Dr Vela. The pt reported feeling cold and chilled. This AM the pt denies weakness, dizziness. States he has back pain. Denies any fevers, chills, Headache, Chest Pain, Shortness of breath, cough, palpitations, abdominal pain, N/V/D or changes in bowel or bladder habits. Medical History 1. ESRD HD as per Nephrology. 2. History of prosthetic hip infection, status post right hip removal. 3. Tongue cancer status post tongue resection and neck dissection. 4. History of thyroid cancer, status post thyroidectomy. 5. Left foot ulcer, chronic 5. Chronic osteomyelitis of right clavicle. 6. S/p 2 kidney transplant 7. Hypothyroidism. 8. Interstitial lung disease 9. Diverticulosis. 10. Anemia of end-stage renal disease. 11. Hx of Cholecystitis 12. Umbilical hernia 13. PAD LLE 14. Chronic venous insufficiency 16. Splenomegaly 17. GERD 18. Insomnia Surgical History Right hip prosthesis Dr. Silva 11/2008 Left hip prosthesis 08/2007 Radial neck dissection for tongue cancer 2010 Renal tranplant 2 times [facility]. [facility]. Cataract 12/2016 AV fistula creation left arm Umbilical hernia repair Cholecystectomy Varicose vein stripping Parathyroid surgeryX2 Numerous skin cancer removal PE: GEN: 64yoM, appears stated age. Alert and oriented x 3. HEENT: Normocephalic, atraumatic. Moist mucous membranes. CHEST: Regular rate and rhythm, +S1, +S2 LUNGS: Good A/E bilaterally. ABD: Round, soft, non-tender, non-distended. EXT: The LUE is bandaged with bleeding noted on bandages. JACQUES was removed, but was unable to visulaize site of bleeding orvisualize wound as pt rapidly bled through the dressing. Pressure was applied. There was a palpable thrill over AVF which diminished to pulsatile over fistula. Hand sensation and motor strength intact. Fingers were slightly cool but good cap refill. Radial and ulnar pulses monophasic with doppler. A&P: 64year oldM with ESRD on HD as per Nephrology S/P AVF revision as per Dr Vela 07/14/19. POD3. The pt is reviewed and discussed with Dr Vela. Dr Vela at bedside this AM. Plan as reviewed with Dr Vela, 1. AVF S/P AVF revision Rt UE AVF 07/14/[address] Vela. POD4. Pain control Bowel care. Pt with recurrent bleeding from AVF site this AM and will require surgical revision and is taken to OR as per Dr Vela. Continue to monitor for bleeding. 2. Hypotension. BP 90s systolic this AM. monitor. 3. Leukocytosis. Tmax this Am 103.2 WBC 5.7 CXR 07/16/19 NAD. BC x 2 Staph aureus. GI panel neg. pt states he does not make any urine. odor noted from Left arm wound this AM. foot wound Left posterior ankle appears to be healing, does not appear infected. no drainage from Permcath Rt chest. IV Vanco loading dose this AM. Antibiotics as per Medicine Svc. 4. Anemia. S/P PRBC x 6 u. additional 1unit started in OR Holding area. Monitor. 5. Coagulopathy S/P 1 u Plts 07/16/19. PLT 145 this AM. INR 1.16decreased from 1.47. S/P Vitamin k 20 mg po S/P DDAVP. LFTs WNL. Monitor for cont'd bleeding. 5. ESRD. HD as per Nephrology. Permcath Rt Chest in place. Dr Alves following. VS, I&O, 24H, Fishbone Vital Signs/I&O Vital Signs Date Time Temp Pulse Resp B/P (MAP) Pulse Ox O2 Delivery O2 Flow Rate FiO2 07/18/19 14:05 119 129/67 (87) 100 07/18/19 13:55 18 07/18/19 12:15 100.9 07/16/19 06:00 2.0 I&O- Last 24 Hours up to 6 AM 07/18/19 06:00 Intake Total 1420 ml Output Total 2000 ml Balance -580 ml Laboratory Data 24H LABS Laboratory Tests 2 07/18/19 04:51: Immature Granulocyte % (Auto) 0.5, White Blood Count 5.7, Red Blood Count 3.16L, Hemoglobin 9.9L, Hematocrit 30.7L, Mean Corpuscular Volume 97.2H, Mean Corpuscular Hemoglobin 31.3, Mean Corpuscular Hemoglobin Concent 32.2, Red Cell Distribution Width 18.7H, Platelet Count 145L, Neutrophils (%) (Auto) 94.1H, Lymphocytes (%) (Auto) 2.4L, Monocytes (%) (Auto) 2.8, Eosinophils (%) (Auto) 0.0, Basophils (%) (Auto) 0.2, Neutrophils # (Auto) 5.4, Lymphocytes # (Auto) 0.1L, Monocytes # (Auto) 0.2, Eosinophils # (Auto) 0.0, Basophils # (Auto) 0.0, Nucleated Red Blood Cells % (auto) 0.0, Prothrombin Time 14.5H, Prothromb Time International Ratio 1.16, Anion Gap 6L, Glomerular Filtration Rate 16.0L, Blood Urea Nitrogen 33#H, Creatinine 4.05#H, Sodium Level 138, Potassium Level 4.2, Chloride Level 101, Carbon Dioxide Level 31, Calcium Level 8.7L, Aspartate Amino Transf (AST/SGOT) 33, Alanine Aminotransferase (ALT/SGPT) 31, Alkaline Phosphatase 151H, Total Bilirubin 1.0#, Total Protein 6.3L, Albumin 2.4L, Albumin/Globulin Ratio 0.62L CBC/BMP Laboratory Tests 07/18/19 04:51 Red Blood Count 3.16 L, Mean Corpuscular Volume 97.2 H, Mean Corpuscular Hemoglobin 31.3, Mean Corpuscular Hemoglobin Concent 32.2, Red Cell Distribution Width 18.7 H, Neutrophils (%) (Auto) 94.1 H, Lymphocytes (%) (Auto) 2.4 L, Monocytes (%) (Auto) 2.8, Eosinophils (%) (Auto) 0.0, Basophils (%) (Auto) 0.2, Neutrophils # (Auto) 5.4, Lymphocytes # (Auto) 0.1 L, Monocytes # (Auto) 0.2, Eosinophils # (Auto) 0.0, Basophils # (Auto) 0.0, Calcium Level 8.7 L, Aspartate Amino Transf (AST/SGOT) 33, Alanine Aminotransferase (ALT/SGPT) 31, Alkaline Phosphatase 151 H, Total Bilirubin 1.0 #, Total Protein 6.3 L, Albumin 2.4 L Microbiology Microbiology 07/16/19 Blood Culture - Preliminary, Resulted Staphylococcus Aureus 07/16/19 Blood Culture - Preliminary, Resulted Staphylococcus Aureus 07/16/19 Gastrointestinal Tract Panel (PCR) - Final, Complete Attending Note Attending Note VASCULAR SURGICAL ATTENDING NOTE: Dr. Katy Vela M.D. ASSESSMENT: Patient has bleeding from his left basilic vein transposition autogenous arteriovenous fistula revision and will require operative exploration and repair and/or ligation of the arteriovenous fistula. PLAN: Patient was taken to the operating room urgency and underwent revision and repair of the fistula and is doing well postoperatively. Dipak Umanzor was the attending vascular surgeon for this patient encounter. The patient was seen, examined, interviewed and evaluated independently by Dr. Alexander Vela M.D. was fully available during the consultation evaluation. All aspects of the patient interview, examination, medical decision making process, and medical care plan development were reviewed and approved by Dr. Alexander Vela M.D. Dr. Alexander Vela M.D. is aware and concurs with the plan as stated in the body of this note and will attest to such by his/her cosignature. Palma Medel Jul 18, 2019 14:20 Joey Vela MD Jul 24, 2019 14:10
[2019-07-18 16:14] LABS: HEMATOCRIT 33.3 % (42.0-52.0); HEMOGLOBIN 11.2 g/dl (13.5-17.5); MEAN CORPUSCULAR HEMOGLOBIN 32.1 pg (27.0-33.0); MEAN CORPUSCULAR HGB CONC 33.6 g/dl (32.0-36.5); MEAN CORPUSCULAR VOLUME 95.4 fl (80.0-96.0); PLATELET COUNT, AUTOMATED 130 10^3/uL (150-450); RED BLOOD COUNT 3.49 10^6/uL (4.30-6.10); WHITE BLOOD COUNT 6.8 10^3/uL (4.0-10.0)
[2019-07-18] MEDS ORDERED: NS 500 ML IV ONE (16:30)
--- NOTE | 2019-07-18 16:39 | ECGEPIP ---
[facility] Test Date: 2019-07-18 Pat Name: REGLA FIGUEREDO Department: Room: [place] [address] Gender: Male County Manager: SUSAN : 1955 Requested By: DENISE Gandhi Order Number: [id number] Reading MD: Zana Montanez Measurements Intervals [place] Rate: 133 P: 68 IA: 161 QRS: -1 QRSD: 93 T: 56 QT: 289 QTc: 431 Interpretive Statements SINUS TACHYCARDIA ABNORMAL RHYTHM ECG Increased heart rate and no 1st degree AV block compared with 12/10/2018 Electronically Signed on 07-18-2019 16:39:28 EDT by Zana Montanez
[2019-07-18 16:42] LABS: ALBUMIN 2.4 GM/DL (3.2-5.2); BILIRUBIN,TOTAL 1.7 MG/DL (0.2-1.0); CALCIUM LEVEL 8.2 MG/DL (8.8-10.2); CREATININE FOR GFR 4.6 MG/DL (0.70-1.30); GLOMERULAR FILTRATION RATE 13.9 (>49); POTASSIUM SERUM 4.2 MEQ/L (3.5-5.1); TOTAL PROTEIN 5.4 GM/DL (6.4-8.2)
--- NOTE | 2019-07-18 17:51 | IPNPDOC ---
Text Note Date of Service The patient was seen on 07/18/19. NOTE SUBJECTIVE: The patient is seen both pre-and postoperatively today. Preoperatively the patient was found to have profuse bleeding from the operative site of his AV fistula revision. He was taken emergently to the operating room. Postoperatively, he has remarkable pain with agitation and tachycardia. The patient has underlying chronic kidney disease that is hemodialysis requiring. Also has significant history of head and neck cancer. OBJECTIVE: Physical exam: HENT: Neck is supple with no adenopathy or thyromegaly, has significant surgical scarring to his neck Cardiovascular: Regular rate and rhythm. Respiratory: Occasional coarse breath sounds, has a Vas-Cath in place to right upper chest Abdomen: Nondistended, nontender. Extremities: Left upper extremity-is wrapped in layers of compression dressing, there is drain in place, he is having considerable pain, distally hand and fingers are warm to touch Right lower extremity--there is an approximately 3 cm ulcer behind the ankle. There is no bleeding or drainage or foul odor, it has a foam dressing covered with gauze ASSESSMENT/PLAN: 1. Patient has had repeat revision of his left upper extremity AV fistula with complications. Management is deferred to the vascular surgery service. 2. End-stage renal disease. Patient will dialyze under the supervision of the nephrology service, anticipated for tomorrow. 3. Bacteremia Patient has had fever up to 101.8. Blood cultures were obtained. These are positive for staph aureus. Patient has been started on empiric antibiotics in the form of vancomycin. VS,Fishbone, I+O VS, Fishbone, I+O Laboratory Tests 07/18/19 04:51 Red Blood Count 3.16 L, Mean Corpuscular Volume 97.2 H, Mean Corpuscular Hemoglobin 31.3, Mean Corpuscular Hemoglobin Concent 32.2, Red Cell Distribution Width 18.7 H, Neutrophils (%) (Auto) 94.1 H, Lymphocytes (%) (Auto) 2.4 L, Monocytes (%) (Auto) 2.8, Eosinophils (%) (Auto) 0.0, Basophils (%) (Auto) 0.2, Neutrophils # (Auto) 5.4, Lymphocytes # (Auto) 0.1 L, Monocytes # (Auto) 0.2, Eosinophils # (Auto) 0.0, Basophils # (Auto) 0.0, Calcium Level 8.7 L, Aspartate Amino Transf (AST/SGOT) 33, Alanine Aminotransferase (ALT/SGPT) 31, Alkaline Phosphatase 151 H, Total Bilirubin 1.0 #, Total Protein 6.3 L, Albumin 2.4 L 07/18/19 16:00 Red Blood Count 3.49 L, Mean Corpuscular Volume 95.4, Mean Corpuscular Hemoglobin 32.1, Mean Corpuscular Hemoglobin Concent 33.6, Red Cell Distribution Width 18.6 H, Calcium Level 8.2 L, Aspartate Amino Transf (AST/SGOT) 43 H, Alanine Aminotransferase (ALT/SGPT) 35, Alkaline Phosphatase 190 H, Total Bilirubin 1.7 #H, Total Protein 5.4 L, Albumin 2.4 L Vital Signs Date Time Temp Pulse Resp B/P (MAP) Pulse Ox O2 Delivery O2 Flow Rate FiO2 07/18/19 17:05 122 112/57 (75) 96 07/18/19 16:21 20 07/18/19 16:05 101.8 07/18/19 14:48 2.0 I&O- Last 24 Hours up to 6 AM 07/18/19 06:00 Intake Total 1420 ml Output Total 2000 ml Balance -580 ml DENISE BYNUM MD Jul 18, 2019 17:51
[2019-07-18] MEDS: oxyCODONE 5MG TAB PO PRN ×2 (19:29→23:34)
[2019-07-18] MEDS: PRAVASTATIN 20 MG TAB PO SCH (20:33)
--- NOTE | 2019-07-18 21:57 | IPN ---
DATE: 07/18/2019 Mr. Chen is seen this morning on his bedside. He developed massive bleeding from his left arm wound when his dressing was opened by vascular surgery physician medical assistant prn and nursing. They are still holding manual pressure for last couple of hours and waiting for the OR. The patient had 103 fever and tachycardia. Blood cultures have been drawn and vancomycin 1 gram has been given. The patient is somewhat uncomfortable due to his left arm pain, but no dyspnea or chest pain at present. He has received 5 units of packed RBCs so far during this admission. PHYSICAL EXAMINATION Temperature 101.8 degrees Fahrenheit, heart rate 120 per minute and respiratory rate 20 per minute. Blood pressure 112/57 mmHg and oxygen saturation 94%. The patient is not in any acute distress. His left arm is being held with manual pressure due to massive bleeding from his AV fistula site. His neck veins are not abnormally distended. His heart sounds are tachycardiac and lungs clear to auscultation. Abdomen: Soft and nontender. Bowel sounds normal. Extremities: Without any cyanosis on his right upper extremity. Last left arm is swollen. Neurologically he is awake, alert and at his baseline mentation. PROBLEMS: 1. End-stage renal disease. The patient was dialyzed yesterday and his next dialysis will be scheduled for tomorrow. His volume status has been well compensated and there is no emergent need for dialysis today. 2. Acute blood loss anemia. The patient has received a total of 5 units of packed RBCs so far. He has massive bleeding now and will need to go back to OR today and is likely to require further transfusion during surgery. CBC will be checked again this afternoon. 3. Fever and positive blood cultures. The patient has staph aureus bacteremia and his blood cultures have come back positive. He is being given vancomycin 1 gram today and then we will redose after dialysis.
[2019-07-19] VITALS (32 sets, daily range): BP systolic 72–146; BP diastolic 40–67
[2019-07-19] MEDS: ACETAMINOPHEN TAB 650MG DOSE (2X325MG) PO PRN (02:31)
[2019-07-19] MEDS: PIPERACILLIN/TAZOBACTAM SOD 2.25 GM in D5W MINI-BAG PLUS 50 ML IV SCH ×3 (04:03→20:02)
[2019-07-19] MEDS: oxyCODONE 5MG TAB PO PRN (04:10)
[2019-07-19] MEDS: fentaNYL 100 MCG/2 ML INJECTION (J3010) IV PRN ×2 (04:36→13:36)
[2019-07-19 05:34] LABS: HEMATOCRIT 31.4 % (42.0-52.0); HEMOGLOBIN 10.4 g/dl (13.5-17.5); MEAN CORPUSCULAR HEMOGLOBIN 30.8 pg (27.0-33.0); MEAN CORPUSCULAR HGB CONC 33.1 g/dl (32.0-36.5); MEAN CORPUSCULAR VOLUME 92.9 fl (80.0-96.0); PLATELET COUNT, AUTOMATED 105 10^3/uL (150-450); RED BLOOD COUNT 3.38 10^6/uL (4.30-6.10); WHITE BLOOD COUNT 5.1 10^3/uL (4.0-10.0)
[2019-07-19 05:49] LABS: INR 1.22; PROTHROMBIN TIME 15.1 SECONDS (11.8-14.0)
[2019-07-19 05:54] LABS: ALBUMIN 2.1 GM/DL (3.2-5.2); CALCIUM LEVEL 8.3 MG/DL (8.8-10.2); CREATININE FOR GFR 5.71 MG/DL (0.70-1.30); GLOMERULAR FILTRATION RATE 10.8 (>49); POTASSIUM SERUM 3.5 MEQ/L (3.5-5.1); TOTAL PROTEIN 5.9 GM/DL (6.4-8.2)
[2019-07-19] MEDS: LEVOTHYROXINE 100MCG TABLET (0.1MG) PO SCH (06:28)
[2019-07-19] MEDS ORDERED: NS 500 ML IV ONE (08:00)
[2019-07-19] MEDS: VITAMIN D 1,000 INTERNATIONAL UNITS TABLET PO SCH (08:53)
[2019-07-19] MEDS: ASCORBIC ACID 500 MG TAB PO SCH (08:53)
[2019-07-19] MEDS: ASPIRIN 81 MG ENTERIC TAB PO SCH (08:54)
[2019-07-19] MEDS: BISACODYL 5 MG TAB PO SCH (08:55)
[2019-07-19] MEDS: MULTIVITAMINS/MINERALS THERAP 1 TAB PO SCH (08:55)
[2019-07-19] MEDS ORDERED: EPIDURAL/PCA KEYS XX PRN (14:45)
[2019-07-19] MEDS ORDERED: NALOXONE INJ 0.4 MG/1 ML VIAL (J2310) IV PRN (14:45)
[2019-07-19] MEDS ORDERED: diphenhydrAMINE INJ 50MG/ML VIAL (J1200) IV PRN (14:45)
[2019-07-19] MEDS ORDERED: NALBUPHINE HCL 10 MG/ML AMP (J2300) IV PRN (14:45)
[2019-07-19] MEDS ORDERED: ONDANSETRON 4MG/2ML VIAL (J2405) IV PRN (14:45)
[2019-07-19] MEDS: **VANCO AFTER HD** MISC XX SCH (16:00)
[2019-07-19] MEDS: VANCOMYCIN HCL 1,000 MG, VIAL MATE ADAPTER 1 EACH in D5W 250 ML IV SCH (16:26)
[2019-07-19] MEDS: MORPHINE 1MG/ML IN 0.9% NACL 100ML IV BAG IV PRN (16:26)
[2019-07-19] MEDS: NS 1,000 ML IV SCH (16:28)
--- NOTE | 2019-07-19 16:50 | IPNPDOC ---
Text Note Date of Service The patient was seen on 07/19/19. NOTE Subjective: Mr. Chen is more comfortable this morning than he was postoperatively yesterday. His pain has been reasonably controlled. However, he has been mildly hypotensive and unable to receive some dosages. He is currently receiving a fluid bolus. We have been utilizing fentanyl as this is what appears to be effective for him. The patient had had additional revision to his AV fistula yesterday due to bleeding. Objective: Physical exam: HENT: Neck is supple with no adenopathy or thyromegaly, has significant surgical scarring to his neck Cardiovascular: Regular rate and rhythm. Respiratory: Occasional coarse breath sounds, has a Vas-Cath in place to right upper chest Abdomen: Nondistended, nontender. Extremities: Left upper extremity-wound site is wrapped in gauze, there is drainage in place, there is decreased area of bleeding, dressing is not soaked, distantly. Patient has warm hand and fingers and radial pulse is palpable Right lower extremity--there is an approximately 3 cm ulcer behind the ankle. There is no bleeding or drainage or foul odor, it has a foam dressing covered with gauze ASSESSMENT/PLAN: 1. Patient has had repeat revision of his left upper extremity AV fistula with complications. Management is otherwise deferred to the vascular surgery service. 2. End-stage renal disease. Patient will dialyze under the supervision of the nephrology service, anticipated for today. 3. Bacteremia Patient had had fever up to 101.8. Blood cultures were obtained. These are positive for staph aureus, oxacillin sensitive. Patient has been started on empiric antibiotics in the form of vancomycin. We can de-escalate antibiotic th erapy per vascular surgery preference. VS,Fishbone, I+O VS, Fishbone, I+O Laboratory Tests 07/19/19 05:17 Red Blood Count 3.38 L, Mean Corpuscular Volume 92.9, Mean Corpuscular Hemoglobin 30.8, Mean Corpuscular Hemoglobin Concent 33.1, Red Cell Distribution Width 18.6 H, Calcium Level 8.3 L, Aspartate Amino Transf (AST/SGOT) 73 H, Alanine Aminotransferase (ALT/SGPT) 36, Alkaline Phosphatase 213 H, Total Bilirubin 1.0, Total Protein 5.9 L, Albumin 2.1 L Vital Signs Date Time Temp Pulse Resp B/P (MAP) Pulse Ox O2 Delivery O2 Flow Rate FiO2 07/19/19 14:00 99 16 114/57 (76) 96 07/19/19 13:41 98.0 07/18/19 14:48 2.0 I&O- Last 24 Hours up to 6 AM 07/19/19 06:00 Intake Total 2710 ml Output Total 60 ml Balance 2650 ml DENISE BYNUM MD Jul 19, 2019 16:50
[2019-07-19] MEDS: PRAVASTATIN 20 MG TAB PO SCH (21:02)
[2019-07-20] VITALS (14 sets, daily range): BP systolic 82–117; BP diastolic 38–58
[2019-07-20] MEDS: PIPERACILLIN/TAZOBACTAM SOD 2.25 GM in D5W MINI-BAG PLUS 50 ML IV SCH ×2 (04:04→18:08)
[2019-07-20 05:38] LABS: HEMATOCRIT 32.9 % (42.0-52.0); HEMOGLOBIN 10.4 g/dl (13.5-17.5); MEAN CORPUSCULAR HGB CONC 31.6 g/dl (32.0-36.5); MEAN CORPUSCULAR VOLUME 97.9 fl (80.0-96.0); RED BLOOD COUNT 3.36 10^6/uL (4.30-6.10); WHITE BLOOD COUNT 3.1 10^3/uL (4.0-10.0)
[2019-07-20 05:46] LABS: INR 1.05; PROTHROMBIN TIME 13.4 SECONDS (11.8-14.0)
[2019-07-20] MEDS: LEVOTHYROXINE 100MCG TABLET (0.1MG) PO SCH (05:57)
[2019-07-20 06:03] LABS: ALBUMIN 1.7 GM/DL (3.2-5.2); BILIRUBIN,TOTAL 0.7 MG/DL (0.2-1.0); CALCIUM LEVEL 8.3 MG/DL (8.8-10.2); CREATININE FOR GFR 3.59 MG/DL (0.70-1.30); GLOMERULAR FILTRATION RATE 18.4 (>49); POTASSIUM SERUM 4.2 MEQ/L (3.5-5.1); TOTAL PROTEIN 5.5 GM/DL (6.4-8.2)
[2019-07-20 06:07] LABS: PLATELET COUNT, AUTOMATED 87 10^3/uL (150-450)
[2019-07-20] MEDS: MULTIVITAMINS/MINERALS THERAP 1 TAB PO SCH (09:00)
[2019-07-20] MEDS: BISACODYL 5 MG TAB PO SCH (09:00)
[2019-07-20] MEDS: ASCORBIC ACID 500 MG TAB PO SCH (09:21)
[2019-07-20] MEDS: VITAMIN D 1,000 INTERNATIONAL UNITS TABLET PO SCH (09:24)
[2019-07-20] MEDS: ASPIRIN 81 MG ENTERIC TAB PO SCH (09:24)
[2019-07-20] MEDS: NS 1,000 ML IV SCH (14:12)
[2019-07-20] MEDS: **VANCO AFTER HD** MISC XX SCH (18:09)
[2019-07-20] MEDS: VANCOMYCIN HCL 1,000 MG, VIAL MATE ADAPTER 1 EACH in D5W 250 ML IV SCH (18:09)
[2019-07-20] MEDS: PRAVASTATIN 20 MG TAB PO SCH (19:42)
[2019-07-20] MEDS: ACETAMINOPHEN TAB 650MG DOSE (2X325MG) PO PRN (19:42)
--- NOTE | 2019-07-20 20:05 | IPNPDOC ---
Text Note Date of Service The patient was seen on 07/20/19. NOTE Mr. Chen is much more comfortable today. His pain is being managed with a morphine TRIM MOUNTER pump. He is status post revision to his left upper extremity AVF. He is having minimal postoperative bleeding. Objective: Physical exam: HENT: Neck is supple with no adenopathy or thyromegaly, has significant surgical scarring to his neck Cardiovascular: Regular rate and rhythm. Respiratory: Occasional coarse breath sounds, has a Vas-Cath in place to right upper chest Abdomen: Nondistended, nontender. Extremities: Left upper extremity-wound site is wrapped in gauze, there is KAJAL drain in place, there is small area of bleeding, dressing is not soaked. Distally patient has warm hand and fingers and radial pulse is palpable Right lower extremity--there is an approximately 3 cm ulcer behind the ankle. There is no bleeding or drainage or foul odor, it has a foam dressing covered with gauze ASSESSMENT/PLAN: 1. Patient has had repeat revision of his left upper extremity AV fistula with complications. Management is otherwise deferred to the vascular surgery service. 2. End-stage renal disease. Patient will dialyze under the supervision of the nephrology service. 3. Bacteremia Patient had had fever up to 101.8. Blood cultures were obtained. These are pos itive for staph aureus, oxacillin sensitive. Klebsiella pneumonia has also been isolated. Patient had been started on empiric antibiotics in the form of vancomycin and is also receiving Zosyn. We can de-escalate antibiotic therapy per vascular surgery preference. There is not much overlap in sensitivities for the 2 organisms. VS,Fishbone, I+O VS, Fishbone, I+O Laboratory Tests 07/20/19 05:19 Red Blood Count 3.36 L, Mean Corpuscular Volume 97.9 H, Mean Corpuscular Hemoglobin 31.0, Mean Corpuscular Hemoglobin Concent 31.6 L, Red Cell Distribution Width 18.6 H, Calcium Level 8.3 L, Aspartate Amino Transf (AST/SGOT) 214 H, Alanine Aminotransferase (ALT/SGPT) 66, Alkaline Phosphatase 226 H, Total Bilirubin 0.7, Total Protein 5.5 L, Albumin 1.7 L Vital Signs Date Time Temp Pulse Resp B/P (MAP) Pulse Ox O2 Delivery O2 Flow Rate FiO2 07/20/19 18:00 117 16 104/49 (67) 98 07/20/19 16:00 100.3 07/18/19 14:48 2.0 I&O- Last 24 Hours up to 6 AM 07/20/19 06:00 Intake Total 2700 ml Output Total 80 ml Balance 2620 ml DENISE BYNUM MD Jul 20, 2019 20:05
[2019-07-21] VITALS (13 sets, daily range): BP systolic 86–140; BP diastolic 41–60; O2SAT 96–99
[2019-07-21] MEDS: PIPERACILLIN/TAZOBACTAM SOD 2.25 GM in D5W MINI-BAG PLUS 50 ML IV SCH (04:47)
[2019-07-21 05:10] LABS: HEMATOCRIT 30.6 % (42.0-52.0); HEMOGLOBIN 9.7 g/dl (13.5-17.5); MEAN CORPUSCULAR HEMOGLOBIN 31.2 pg (27.0-33.0); MEAN CORPUSCULAR HGB CONC 31.7 g/dl (32.0-36.5); MEAN CORPUSCULAR VOLUME 98.4 fl (80.0-96.0); RED BLOOD COUNT 3.11 10^6/uL (4.30-6.10); WHITE BLOOD COUNT 2.4 10^3/uL (4.0-10.0)
[2019-07-21 05:12] LABS: PLATELET COUNT, AUTOMATED 78 10^3/uL (150-450)
[2019-07-21 05:18] LABS: INR 1.06; PROTHROMBIN TIME 13.5 SECONDS (11.8-14.0)
[2019-07-21 05:33] LABS: ALBUMIN 1.6 GM/DL (3.2-5.2); BILIRUBIN,TOTAL 0.7 MG/DL (0.2-1.0); CREATININE FOR GFR 4.88 MG/DL (0.70-1.30); GLOMERULAR FILTRATION RATE 12.9 (>49); POTASSIUM SERUM 4.8 MEQ/L (3.5-5.1); TOTAL PROTEIN 5.2 GM/DL (6.4-8.2); VANCOMYCIN RANDOM 36.2 UG/ML
[2019-07-21] MEDS: LEVOTHYROXINE 100MCG TABLET (0.1MG) PO SCH (06:28)
[2019-07-21] MEDS: MORPHINE 1MG/ML IN 0.9% NACL 100ML IV BAG IV PRN (06:29)
[2019-07-21] MEDS: MULTIVITAMINS/MINERALS THERAP 1 TAB PO SCH (09:00)
[2019-07-21] MEDS: BISACODYL 5 MG TAB PO SCH (09:00)
[2019-07-21] MEDS: VITAMIN D 1,000 INTERNATIONAL UNITS TABLET PO SCH (09:18)
[2019-07-21] MEDS: ASPIRIN 81 MG ENTERIC TAB PO SCH (09:19)
[2019-07-21] MEDS: ASCORBIC ACID 500 MG TAB PO SCH (09:19)
[2019-07-21] MEDS ORDERED: DARBEPOETIN 100 MCG/0.5 ML *DIALYSIS* SYRINGE (J0882) IV SCH (09:30)
[2019-07-21] MEDS ORDERED: CEFEPIME HCL 1 GM in D5W MINI-BAG PLUS 50 ML IV ONE (10:00)
--- NOTE | 2019-07-21 10:44 | IPN ---
DATE OF SERVICE: 07/19/2019 SUBJECTIVE: The patient was seen and examined at the bedside this morning in the intensive care unit (ICU). The patient was hypotensive in the morning. He needed IV fluid bolus. He needed emergent surgery yesterday. 2 units of packed red blood cells (PRBC) transfusions were given. Currently being monitored in the ICU. Today is the patient's regular day of dialysis as well and currently a right internal jugular (IJ) tunneled hemodialysis catheter is being used. The patient is awake, but in severe pain but he was able to answer questions and follow commands. OBJECTIVE: VITAL SIGNS: Temperature is 98 degrees Fahrenheit. Blood pressure was 82/53, pulse is 94, respiratory of 18, saturating 95% on room air. Intake and output: There is no urine output recorded. Drainage from the left arm wound is 30 mL. Weight on the bed scale is not available. Exam: HEAD AND NECK EXAM. Extraocular muscles intact. Pupils equally round and reactive to light. Mucous membranes are moist. The patient has history of partial tongue resection. There is a large incision the chin up to his neck. Old neck dissection surgical scar is visible. He has a right IJ tunneled hemodialysis catheter. CARDIOVASCULAR: S1, S2 regular rate. No edema of the bilateral lower extremities. RESPIRATORY: Chest is clear to auscultation bilaterally. Bilateral equal air entry. No rales or rhonchi. ABDOMEN: Soft. Positive bowel sounds. Nontender. No organomegaly. GENITOURINARY: Bladder is not palpable. No hernias noted. MUSCULOSKELETAL: Right leg is shortened because of a previous right hip prosthesis removal. He has a large dressing and swelling in the left upper arm from recent fistula surgery. Central nervous system (SENIOR RESEARCH FELLOW): The patient is slightly obtunded because of pain medications. Otherwise he follows commands and answers questions. LAB REVIEW: CBC showed WBC 5.1, hemoglobin 10.4, platelets are 105. BMP showed sodium 134, potassium 3.5, chloride 101, bicarb 24, BUN 54, creatinine is 5.7, calcium 8.3, total bilirubin one, albumin is 2.1. Microbiology: blood cultures from July 16, 2019 are growing Staphylococcus aureus and it is sensitive to vancomycin. CURRENT INPATIENT MEDICATIONS: The patient's medications were all reviewed by me. He needed one bolus of 500 mL normal saline this morning. He continues to be on IV Zosyn and IV vancomycin with dialysis. He is getting fentanyl as needed p.r.n. for breakthrough pain. Oxycodone, one tablet q. 6-hour for mild pain. No other change in the medications today as compared with yesterday. ASSESSMENT/PLAN: 1. End-stage renal disease on hemodialysis: The patient is being dialyzed today according to his Sunday, , Sunday schedule because of his low blood pressures and recently undergoing surgery for extensive bleeding from the left arm. No fluid removal will be done. Dialysis is being done for clearance only. 2. Staphylococcus aureus bacteremia: It is most likely secondary to infected left upper arm AV fistula. The patient is getting IV vancomycin with dialysis. Repeat cultures sent from the wound yesterday are still pending. 3. Hypotension is most likely secondary to combination of Staphylococcus aureus bacteremia recent surgery an extensive blood loss. He got 500 mL of bolus which helped improve his blood pressure up to 90s. If needed, patient can be started on pressors. He is already covered for Staphylococcus aureus with vancomycin and empirically getting Zosyn as well. 4. Acute blood loss anemia: Hemoglobin is 10.4 which is optimal. No need of blood transfusion at this time. 5. Protein calorie malnutrition: The patient has history of tongue cancer status post done resection. He is unable to swallow. He drinks Nepro, 7 cans a day. I have modified his diet. Total critical care time spent in the management of this patient this morning in the ICU was 50 minutes that does not include any procedures. The patient was separately seen and evaluated during hemodialysis procedure today in the afternoon and he was tolerating the dialysis without any fluid removal. GLEND
--- NOTE | 2019-07-21 10:56 | IPN ---
DATE OF SERVICE: 07/20/2019 SUBJECTIVE: The patient was seen and examined at the bedside today morning in the intensive care unit (ICU). The patient is afebrile, hemodynamically stable. He tolerated the hemodialysis procedure well yesterday. Dialysis was done for clearance and no fluid was removed. He continues to be on IV antibiotics. He reported that he started eating, but he is not able to drink 7 cans of Nepro daily which he usually drinks. He is only able to take about 3-4 cans. He reports his pain is very well optimized with the current [employer] anesthesia now. OBJECTIVE: Vital Signs: Temperature is 98.2 degrees Fahrenheit, blood pressure 95/46, pulse is 106, respiratory rate of 16, saturating 100% on room air. Intake and Output: Drainage from the left arm wound is only 40 mL. There is no urine output recorded and there was no fluid removed with dialysis. PHYSICAL EXAMINATION: General: The patient is awake, alert, oriented times three and laying in bed in no apparent distress. Head and Neck Exam: Extraocular muscles intact. Pupils equally round and reactive to light. Old surgical scar on the chin and on the neck from radical neck dissection. Cardiovascular: S1 and S2, regular rate. Trace edema of the bilateral lower extremities. Respiratory: Chest is clear to auscultation bilaterally. Bilateral equal air entry. No rales or rhonchi. Abdomen: Soft. Positive bowel sounds. Nontender. No organomegaly. Musculoskeletal: Right lower extremity is shortened because of removal of prosthesis. Left upper arm has significant edema and a large dressing from recent surgery of left upper arm AV fistula. MEDIA PRODUCTION SUPPORT MANAGER: No focal deficit. Power is 5/5 in the extremities and follows commands. LAB REVIEW: CBC showed WBC of 3.1, hemoglobin 10.4 and platelets of 87. BMP showed sodium 137, potassium 4.2, chloride 103, bicarb 29, BUN 42, creatinine 3.5, AST 214, ALT 66, alkaline phosphatase 226, albumin 1.7. Microbiology: Wound culture from is growing Staph aureus and Klebsiella pneumoniae. CURRENT INPATIENT MEDICATIONS: The patient's medications were all reviewed by me. He continues to be on Zosyn. I have decreased the Zosyn dose to 2.25 grams IV every 12 hourly because of renal failure. He is on CPA analgesia. No other change in the medications today as compared with yesterday. ASSESSMENT/PLAN: 1. End-stage renal disease on hemodialysis. The patient was dialyzed yesterday. No fluid was removed. Next hemodialysis session will be probably on Sunday according to his regular schedule. However, he will be evaluated on a daily basis for need of dialysis. 2. Sepsis secondary to left upper arm AV fistula site infection and Staph aureus bacteremia. The patient continues to be on Zosyn and vancomycin. Vancomycin dose is adequate for renal failure. Zosyn dose was decreased to twice a day because of end-stage renal disease and dependence on intermittent hemodialysis. 3. Anemia in end-stage renal disease. Hemoglobin is 10.4 which is optimal. I am going to start him on a low dose of Aranesp with dialysis as well. 4. Protein calorie malnutrition. Continue current dose of Nepro and encourage more food intake and Nepro is the only diet that he takes because of history of tongue resection in the past. 5. Elevated liver injury test. The patient's AST and alkaline phosphatase are rising, most likely it might be related to use of Zosyn and Zosyn dose has been decreased. Continue to monitor the hepatic function at this time. Total critical care time spent in the management of this patient today morning in the ICU is 40 minutes and that does not include any procedures.
--- NOTE | 2019-07-21 16:06 | PHACANCOPD ---
PHARMACY VANCOMYCIN DOSING Pt Demographics Demographics Patient Age:64 , Weight:75.200 , Gender: male Adjusted Body Weight Date: 07/18/19, Adjusted Body Weight: [62.84] Kg Events Past 24 Hours Events Past 24 Hours: YES: Other Vancomycin Vancomycin indication: GPC IN CLUSTERS Vancomycin Target Ranges: 15-20 mcg/ml Vancomycin Load Y/N: Yes Load Dose Date Time Vancomycin Load Dose: 1.5G Date: 07/18/19 Time: PATIENT WENT TO OR AROUND 9:30 TODAY, SPOKE WITH NURSE SHE WILL TRY TO HANG 500 BAG DURING SURGERY AND WILL GET 1G DOSE AFTER Vancomycin Dose Date: 07/18/19. Current Vancomycin Dose: [1G HD] Intermittent Dosing?: No Labs Micro Microbiology 07/21/19 Blood Culture, Received Pending 07/16/19 Blood Culture - Final, Complete Staphylococcus Aureus 07/16/19 Blood Culture - Final, Complete Staphylococcus Aureus 07/16/19 Gastrointestinal Tract Panel (PCR) - Final, Complete 07/18/19 Wound Culture - Final, Complete Klebsiella Pneumoniae Staphylococcus Aureus 07/18/19 Anaerobic Culture - Final, Complete 07/18/19 Anaerobic Culture - Final, Complete 07/18/19 Wound Culture - Final, Complete Klebsiella Pneumoniae Staphylococcus Aureus Creatinine Clearance Date:07/18/19. Creatinine Clearance: [14.6]. Assessment and Plan Maintaining Current Dose?: No Reason for dose change: Trough too high Pharmacist Note Pharmacist Note DATE 07/21/19: VANCO DOSE GIVEN ON Sunday07/20/19 NON-HD DAY RESULTING IN PATIENT HAVING RANDOM LEVEL THIS MORNING OF 36.2. I PLACED HD VANCO ORDER ON HOLD FOR NOW. PT IS KASH LEE,SAT HD. FOLLOW UP IN AM TO FIND OUT WHEN PATIENT IS HAVING HD AGAIN IN ORDER TO SCHEDULE A POST HD RANDOM VANCO LEVEL. ID HAS BEEN CONSULTED. WILL CONTINUE TO MONITOR Date: 07/18/19. Pharmacist note: Patient is being treated for a possible MRSA infection, micro came back with GPC in clusters. Patient has been treated at our facility in the past for MSSA but no previous treatment history for MRSA. He is currently a T,T,S HD patient. Today's labs: Scr= 4.05 CrCl= 14.6. Load dose of 1.5G was given on 07/18 during/after surgery. The OR nurse called and stated patient was spiking a fever preop and wanted to get the Vanco started but she was not sure if they would hang the bag in the OR. I told her as long as the patient receives the two doses as close together as possible they would be ok because they are not clearing the med. We will continue to monitor and follow up as necessary. KATEY FERREIRA PHARMACY Jul 21, 2019 16:06
[2019-07-21] MEDS: NS 1,000 ML IV SCH (16:15)
--- NOTE | 2019-07-21 17:38 | REP ---
CT of the chest without IV contrast for now left subclavian crepitations the: Comparison is 03/10/2016. There is a soft tissue mass in the subcutaneous soft tissues of the anterolateral left chest wall measuring 5.2 cm, not present on the comparison study. There is induration of the adjacent subcutaneous fat. There appear to be prominent subcutaneous veins adjacent to this lesion. This may represent an infectious or inflammatory lesion, however neoplasm is not entirely discounted. There is a surgical staple line in the left upper extremity medially. There is subcutaneous emphysema extending from this suture line to the left anterior chest wall in the left subclavian area. This could be postsurgical change or could represent gas from infection. There is edema of the soft tissues in the left anterolateral chest wall and left upper extremity. There is a mosaic pattern of density in the apices of the upper lobes bilaterally. Some of this is calcified near the extreme apex of the right upper lobe. This is unchanged from the prior study but appears to be a chronic finding. There are no acute infiltrates or pleural effusions. There is curvilinear scarring in the lung bases. This a focal zone of atelectasis in the posterior inferior sulcus of the left lower lobe as a change from the prior study. There are a few borderline enlarged mediastinal nodes, not significantly changed. There are borderline enlarged nodes in the left axilla. The unenhanced thoracic aorta is unremarkable except for calcified atheroma. Cardiac size is normal. There is no pericardial effusion. In the upper abdomen there is bilateral renal cortical atrophy, renal calcifications and renal cortical cysts. This is unchanged. I suspect the spleen is enlarged. The visualized hepatic parenchyma is unremarkable. Impression: There is are skin cesario in the left upper extremity medially. There is subcutaneous emphysema extending from the suture line superiorly into the axilla and across the anterolateral left chest wall in the subclavian area. In addition there is a 5.2 cm subcutaneous soft tissue mass in the anterolateral left chest wall. There are borderline enlarged mediastinal and axillary lymph nodes. Probable splenomegaly. Bilateral renal cortical atrophy. Chronic mosaic pattern in the apices of the upper lobes bilaterally. Some of which are calcified, not significantly changed from the prior study. Electronically Signed by Tim Montilla MD 07/21/2019 05:30 P
[2019-07-21] MEDS: raNITIdine SYRUP 150 MG/10 ML UDC PO SCH (17:55)
--- NOTE | 2019-07-21 20:48 | IPN ---
DATE: 07/21/2019 SUBJECTIVE: The patient was seen and examined at the bedside in the ICU. The patient is awake and alert. He reports that he is trying to increase his oral intake. He is drinking more protein shakes and Nepro now. He continues to be on IV antibiotics. He is getting neutropenic now for the last 2 days. He is otherwise afebrile. His blood pressures are staying stable in the high 80s to low 90s. There is no more bleeding from the fistula site. Hemoglobin levels are staying stable. OBJECTIVE: Vital signs: Temperature is 97.9 degrees Fahrenheit, blood pressure 88/41, pulse 89, respiratory rate of 20, saturating 98% on room air. Intake and output: There is no urine output recorded. Drainage from the left upper arm wound is around 20 mL. Weight in the bed scale is not available. PHYSICAL EXAMINATION: General: The patient is awake, alert, oriented x3, laying in bed, in no apparent distress. Head and neck exam: Extraocular muscles intact. Pupils equally round and reactive to light. Old surgical scar on the chin and neck. Cardiovascular: S1, S2 regular rate. Trace edema of the bilateral lower extremities. Respiratory: Chest is clear to auscultation bilaterally. Bilateral equal air entry. No rales or rhonchi. Abdomen is soft. Positive bowel sounds. Nontender. No organomegaly. Musculoskeletal: Right lower extremity is shortened and externally rotated. Left upper arm has significant edema and tenderness and he has a large dressing over the AV fistula site. SENIOR ARCHITECT: No focal deficits. The patient follows commands and is able to communicate. LABORATORY REVIEW: Complete blood count (CBC) showed a WBC 2.4, hemoglobin 9.7, platelets are 78, INR is 1.06. Basic metabolic panel (BMP) showed sodium 136, potassium 4.8, chloride 102, bicarb 27, BUN 69, creatinine is 4.8, calcium is 8, albumin 1.6, AST 82, ALT is 311. Toxicology: Random vancomycin level is 36.2. Microbiology: The patient is growing 2 organisms and Klebsiella and Staphylococcus aureus in the wound culture. CURRENT INPATIENT MEDICATIONS: The patient's medications were all reviewed by myself. IV Zosyn has been stopped. Since the Klebsiella is more sensitive to IV cefepime and is once a day dosage, I have changed his cefepime to 1 gram IV daily. IV vancomycin is on hold now because of high vancomycin level. No other change in the medications today as compared with yesterday. ASSESSMENT/PLAN: 1. End-stage renal disease on hemodialysis. The patient has Sunday, , Sunday scheduled dialysis. He was dialyzed over the weekend. Next hemodialysis will be done tomorrow morning. Volume status is optimal at this time. 2. Sepsis secondary to left upper arm AV fistula, Staphylococcus aureus bacteremia, Staphylococcus and Klebsiella wound infection. Antibiotic is changed to vancomycin and Zosyn. Vancomycin levels are already adequate and actually toxic levels and Zosyn has been switched to cefepime because of better sensitivity. I have also requested infectious disease consult to see the patient regarding further antibiotic regimen. 3. Anemia end-stage renal disease and recent blood loss. Hemoglobin is 9.7 which is optimal. 4. Neutropenia. The patient started getting neutropenic from July 20 and today is slightly worse. I think it is most likely related to vancomycin toxicity and neutropenia associated with vancomycin is usually reversible. Vancomycin level will get better with dialysis tomorrow morning. No urgent need of dialysis today. 5. Protein calorie malnutrition. Continue current dose of Nepro and protein shakes. His oral intake is improving. 6. Elevated liver function test: AST is better today, ALT is still high, alkaline phosphatase is high as well. Zosyn has been stopped and he is currently on IV cefepime. Total critical care time spent in the management of this patient today morning in the ICU is 45 minutes that does not include any procedures
[2019-07-21] MEDS: ceFAZolin SOD 2 GM in IV 1 EA IV SCH (21:01)
[2019-07-21] MEDS: PRAVASTATIN 20 MG TAB PO SCH (21:01)
--- NOTE | 2019-07-21 21:12 | IPNPDOC ---
Text Note Date of Service The patient was seen on 07/21/19. NOTE Subjective: Mr. Chen is calm and conversant this morning. He notes that the swelling to his left upper extremity is decreasing. He reports increasing mobility to his hands and fingers. The patient is status post revision of his left upper extremity AV fistula. Objective: Physical exam: HENT: Neck is supple with no adenopathy or thyromegaly, has significant surgical scarring to his neck Cardiovascular: Regular rate and rhythm. Respiratory: Occasional coarse breath sounds, has a Vas-Cath in place to right upper chest Abdomen: Nondistended, nontender. Extremities: Left upper extremity-wound site is wrapped in gauze, there is KAJAL drain in place, there is small area of bleeding, dressing is not soaked. Distally patient has warm hand and fingers and radial pulse is palpable, fingers and hand are mobile with decreased tenderness Right lower extremity--there is an approximately 3 cm ulcer behind the ankle. There is no bleeding or drainage or foul odor, it has a foam dressing covered with gauze ASSESSMENT/PLAN: 1. Patient has had repeat revision of his left upper extremity AV fistula with complications. Management is otherwise deferred to the vascular surgery service. 2. End-stage renal disease. Patient will dialyze under the supervision of the nephrology service. 3. Bacteremia Patient had had fever up to 101.8. Blood cultures were obtained. These are positive for staph aureus, oxacillin sensitive. Klebsiella pneumonia has also been isolated. Patient had been started on empiric antibiotics in the form of vancomycin and was also receiving Zosyn. We can de-escalate antibiotic therapy per vascular surgery preference; there has been input from the infectious disease service and antibiotics have been escalated to cefazolin. The patient is now sufficiently stable for transition to PCU from the ICU. VS,Fishbone, I+O VS, Fishbone, I+O Laboratory Tests 07/21/19 04:45 Red Blood Count 3.11 L, Mean Corpuscular Volume 98.4 H, Mean Corpuscular Hemoglobin 31.2, Mean Corpuscular Hemoglobin Concent 31.7 L, Red Cell Distribution Width 17.9 H, Calcium Level 8.0 L, Aspartate Amino Transf (AST/SG OT) 176 H, Alanine Aminotransferase (ALT/SGPT) 82 H, Alkaline Phosphatase 311 H, Total Bilirubin 0.7, Total Protein 5.2 L, Albumin 1.6 L Vital Signs Date Time Temp Pulse Resp B/P (MAP) Pulse Ox O2 Delivery O2 Flow Rate FiO2 07/21/19 20:00 96.5 90 20 103/49 (67) 98 07/21/19 18:00 Room Air 07/18/19 14:48 2.0 I&O- Last 24 Hours up to 6 AM 07/21/19 06:00 Intake Total 1910 ml Output Total 60 ml Balance 1850 ml DENISE BYNUM MD Jul 21, 2019 21:12
[2019-07-22] VITALS (16 sets, daily range): BP systolic 88–129; BP diastolic 46–58; O2SAT 88–99
[2019-07-22] MEDS: ACETAMINOPHEN TAB 650MG DOSE (2X325MG) PO PRN (00:11)
[2019-07-22 05:53] LABS: HEMATOCRIT 31.9 % (42.0-52.0); HEMOGLOBIN 10.4 g/dl (13.5-17.5); MEAN CORPUSCULAR HEMOGLOBIN 31.5 pg (27.0-33.0); MEAN CORPUSCULAR HGB CONC 32.6 g/dl (32.0-36.5); MEAN CORPUSCULAR VOLUME 96.7 fl (80.0-96.0); WHITE BLOOD COUNT 3.5 10^3/uL (4.0-10.0)
[2019-07-22 06:05] LABS: PLATELET COUNT, AUTOMATED 95 10^3/uL (150-450)
[2019-07-22] MEDS: LEVOTHYROXINE 100MCG TABLET (0.1MG) PO SCH (06:06)
[2019-07-22] MEDS: MULTIVITAMINS/MINERALS THERAP 1 TAB PO SCH (06:06)
[2019-07-22 06:07] LABS: INR 1.14; PROTHROMBIN TIME 14.3 SECONDS (11.8-14.0)
[2019-07-22] MEDS: ASCORBIC ACID 500 MG TAB PO SCH (06:07)
[2019-07-22] MEDS: ASPIRIN 81 MG ENTERIC TAB PO SCH (06:08)
[2019-07-22 06:13] LABS: ALBUMIN 1.7 GM/DL (3.2-5.2); BILIRUBIN,TOTAL 0.8 MG/DL (0.2-1.0); C REACTIVE PROTEIN QUANTITATIV 10.4 MG/DL (0.00-0.30); CALCIUM LEVEL 8.5 MG/DL (8.8-10.2); CREATININE FOR GFR 6.26 MG/DL (0.70-1.30); GLOMERULAR FILTRATION RATE 9.7 (>49); POTASSIUM SERUM 4.8 MEQ/L (3.5-5.1); TOTAL PROTEIN 5.3 GM/DL (6.4-8.2)
--- NOTE | 2019-07-22 06:29 | ECHO ---
DATE OF STUDY: 07/21/2019 REFERRING PHYSICIAN: Dr. Zakia Domingo INDICATION: Cardiac murmur unspecified. HEIGHT: 158 cm. WEIGHT: 75.2 kg. 2-D MEASUREMENTS: Aortic root: 3.5 cm Left atrium: 4.4 cm Ventricular septum: 1.36 cm Posterior wall: 1.32 cm Left ventricle diastole: 5.2 cm LVOT: 2.3 cm Inferior vena cava: 0.7 cm with much greater than 50% respiratory variation DOPPLER MEASUREMENTS: Moderate aortic stenosis Mild aortic regurgitation Peak aortic valve velocity: 305 cm/sec Aortic valve VTI: 56.4 cm Peak aortic valve gradient: 37 mmHg Mean aortic valve gradient: 21 mmHg Aortic valve area (continuity equation, VTI): 1.22 cm squared Dimensionless index: 0.29 LVOT velocity: 88.7 cm/sec LVOT VTI: 16.6 cm Mitral E velocity: 99.7 cm/sec Mitral A velocity: 81.9 cm/sec Mitral deceleration time: 222 ms Very mild tricuspid regurgitation Estimated right ventricular systolic pressure 32 mmHg assuming a right atrial pressure of 5 mmHg Pulmonary artery systolic pressure: 25 mmHg MITRAL ANNULAR TISSUE DOPPLER: E prime septal: 5.5 cm/sec E prime lateral: 11.7 cm/sec DESCRIPTION: The rhythm was sinus. Image quality was fair. No pericardial effusion. CONCLUSIONS: 1. Degenerative, calcific aortic valve disease with severe focal thickening and focal calcific deposits of a 3-cuspid aortic valve. No effusion of the aortic cusps. Moderate aortic stenosis and mild aortic regurgitation. 2. Mild concentric left ventricle hypertrophy. Normal regional LV wall motion and wall thickening. Normal LV systolic function. LVEF 70% by visual estimate. Normal LV diastolic function for age. 3. Mild left atrial dilatation. 4. Moderate mitral annular calcification. No mitral stenosis or mitral regurgitation. 5. Otherwise normal appearing echocardiogram Doppler findings. RECOMMENDATION: Recommend a followup echocardiogram Doppler in one year.
[2019-07-22 07:14] LABS: ERYTHROCYTE SEDIMENTATION RATE 65 mm/hr (0-20)
[2019-07-22] MEDS: MORPHINE 1MG/ML IN 0.9% NACL 100ML IV BAG IV PRN ×2 (07:49→07:50)
[2019-07-22] MEDS: raNITIdine SYRUP 150 MG/10 ML UDC PO SCH ×2 (09:00→20:39)
[2019-07-22] MEDS: BISACODYL 5 MG TAB PO SCH (09:00)
[2019-07-22] MEDS: VITAMIN D 1,000 INTERNATIONAL UNITS TABLET PO SCH (09:00)
--- NOTE | 2019-07-22 11:18 | CR ---
DATE OF CONSULTATION: 07/21/2019 Asked to consult by Dr. Garcia for evaluation of Staphylococcus aureus bacteremia in a patient with an AV fistula that has been ulcerated. HISTORY OF PRESENT ILLNESS: Jc is a pleasant 64-year-old gentleman well known to me from previous infections involving his right hip prosthesis. The patient has a history of end-stage renal disease, on maintenance hemodialysis through an AV fistula in his left arm. The patient was admitted to the hospital on 07/05/2019, discharged on 07/10/2019 for he had an angiogram done and was noted to have some stenosis of lower extremities, 50% of the profunda femoris heavy calcification of the common femoral artery. This was worked up for a left calf ulceration that was nonhealing. Also, his AV fistula was ulcerated, and blood cultures were drawn which were negative. He had a right internal jugular (vein) (IJ) hemodialysis placed so that the AV fistula could be revised. He came to the hospital on 07/15/2019 because of significant bleeding from his AV fistula. He required multiple transfusions for significant bleeding. He had 7 units of packed red blood cells and 1 unit of platelets between 07/15/2019 and 07/18/2019. He is now in the intensive care unit (ICU) and doing better. He had a fever up to 102.7 on 07/18/2019. Has been afebrile today. He denies any nausea, vomiting, or diarrhea. No abdominal pain. He does complain of some chest pain on the side of his left AV fistula, left-sided pain with subcutaneous tenderness since he has had this bleeding fistula. PAST MEDICAL HISTORY: Is significant for end-stage renal disease. 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 He is on chronic dialysis. History of right hip prosthetic joint infection, status post Girdlestone surgery. History of tongue cancer, status post resection and neck dissection. History of thyroid cancer, status post thyroidectomy. Left leg cellulitis with a chronic foot ulcer, status post angiogram. 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 Hypothyroidism. Interstitial lung disease. Diverticulosis. Anemia of renal disease. History of cholecystitis. Umbilical hernia. Atherosclerosis. Chronic venous hypertension. Splenomegaly. Gastroesophageal reflux disease. Insomnia. PAST SURGICAL HISTORY: Right hip prosthesis done by Dr. Silva in November of 1999. Left hip prosthesis in 2006. Radical neck dissection and renal transplant in 1982 and 1995. Bilateral cataract surgery. AV fistula left arm. Umbilical hernia repair. Cholecystectomy. Venous stripping of varicose veins. Skin cancer. SOCIAL HISTORY: He quit smoking. Lives at home with his . No drugs or alcohol. LABORATORIES: White count 2.4, hemoglobin 9.7, hematocrit 30.6, platelets 78. His white count on admission was 12.8 on 07/16/2019. Sodium 136, potassium 4.8, chloride 102, bicarbonate 27, BUN 69, creatinine 4.8, glucose 97, calcium 8, bilirubin 0.7, AST 176, ALT 82, alkaline phosphatase 311, total protein 5.2, albumin 1.6. Random vancomycin level done on 07/21/2019 was 36.2. MEDICATIONS: - Zosyn 2.25 grams intravenous (IV) every 12 hours started on 07/20/2019 - vancomycin Previous to that, the patient was also on cefepime 1 gram IV every 24. Start date of vancomycin was 07/18/2019 and Zosyn was 07/19/2019. Cultures 07/05/2019, two sets done on previous admission were negative. On 07/16/2019, blood cultures were positive for Staphylococcus aureus MSSA. Gastrointestinal (GI) panel was negative. Left arm culture done on 07/18/2019 had Klebsiella pneumoniae and Staphylococcus aureus. Klebsiella is resistant to ampicillin. Staphylococcus aureus is MSSA. Anaerobic culture of the left arm is negative. CT chest without IV contrast showed no acute infiltrate or pleural effusion, scarring of the lung bases, atelectasis, borderline enlarged nodes in the left axilla. Cardiac size is normal. Upper abdomen, bilateral renal atrophy, calcifications, splenomegaly. There is subcutaneous emphysema extending from the suture line superiorly into the axilla and across the anterolateral left chest wall. There is also a 5.2 cm subcutaneous soft tissue mass in the anterolateral left chest wall. Chest x-ray done on 07/16/2019 showed no acute infiltrate. On physical examination, he is a pleasant-looking gentleman in no acute distress. Afebrile. Temperature is 96.5, pulse 90, respirations 20, blood pressure 103/49, oxygen (O2) saturation 98% on room air. Heart: Normal S1, S2 with a systolic ejection murmur 3/6 best heard at the left upper sternal border with radiation through the pericardium. Lungs are clear. No wheezes, rales, or rhonchi. Abdomen: Soft, nontender. No hepatosplenomegaly. Chest wall has emphysematous changes with crepitus subcutaneously erythema extending to his nipple on the left side with a vesicular lesion underneath his axilla with hemorrhagic blisters. The patient has a very swollen left arm, erythematous, painful. He is able to move his fingers. Right arm: No swelling. No redness. Oropharynx: Tongue resection with radical neck dissection. The patient is able to talk and give a good history. No adenopathy noted within feeling of the skin around his neck area. Extremities: No edema. Right hip surgery, well healed scar. Left lower extremity has an ulceration measuring about 3 x 1 cm along the posterior calf area inferiorly with no purulence and no evidence of infection. IMPRESSION: This is a 64-year-old gentleman with a vascular graft infection with culture positive for MSSA and Klebsiella pneumoniae and secondary Staphylococcus aureus bacteremia. The patient is well known to have a heart valve with no previous echocardiogram listed in [facility]. The patient is known to have a heart murmur. It is quite concerning. It is quite loud systolic ejection murmur concerning for mitral regurgitation. I am concerned that he might have seeded also his heart valve. The other concern is this crepitus and worse involvement of Staphylococcus aureus subcutaneously with worsening infection and possibly a subcutaneous collection in his chest wall. He has defervesced, which is reassuring. PLAN: Obtain repeat blood cultures, two sets. Discontinue IV vancomycin and cefepime and Zosyn. Switch to cefazolin 2 grams IV every [address] Vela sees the patient tomorrow and possibly obtaining an ultrasound of his chest to see if this collection needs to be drained. May need to consult Dr. Desai. He has mild pancytopenia, which could be medication-related, but the patient has had previous episode of thrombocytopenia in the past 2-3 years, as well. We will continue to monitor. Thank you for consultation. Please obtain echocardiogram, and probably the patient will need a transesophageal echocardiogram, as well, if transthoracic echocardiogram nonrevealing.
[2019-07-22] MEDS ORDERED: HEPARIN 1,000 UNITS/ML 10ML VIAL (FOR RADIOLOGY& DIALYSIS ONLY) XX ONE ×2 (14:00)
[2019-07-22] MEDS ORDERED: HEPARIN 1,000 UNITS/ML 10ML VIAL (FOR RADIOLOGY& DIALYSIS ONLY) IV ONE (14:00)
[2019-07-22] MEDS: NS 1,000 ML IV SCH (14:37)
[2019-07-22] MEDS ORDERED: CEFEPIME HCL 1 GM in D5W MINI-BAG PLUS 50 ML IV SCH (17:00)
--- NOTE | 2019-07-22 18:26 | IPN ---
DATE: 07/22/2019 SUBJECTIVE: The patient was seen and examined at the bedside today morning. He was transferred out of the intensive care unit (ICU). He is still having low-grade temperatures. Maximum temperature (T-max) is 100.2 degrees Fahrenheit yesterday. He was seen by infectious disease yesterday. They ordered a CAT scan. CAT scan showed swelling on the left arm and a questionable mass in the left anterior chest wall. The patient continues to be on patient-controlled analgesia because of severe pain in the left arm. Today is the patient's regular day of dialysis. His antibiotics were changed per infectious disease yesterday. OBJECTIVE: VITAL SIGNS: Temperature is 97 degrees Fahrenheit, maximum temperature (T-max) was 100.2 degrees Fahrenheit, blood pressure 121/58, pulse is 93, respiratory rate of 18, saturating 94% on room air. INTAKE AND OUTPUT: The drainage from the wound is only 7 mL. There is no urine output recorded. Weight in the bed scale is 79.9 kg. PHYSICAL EXAMINATION: GENERAL: The patient is awake, alert and oriented times three, laying in bed, currently on patient-controlled analgesia but able to communicate. HEAD AND NECK: Extraocular muscles intact. Pupils equally round and reactive to light. Mucous membranes are moist. Previous partial tongue resection surgical scar starting from chin up to the neck is visible. CARDIOVASCULAR: S1, S2, regular rate. No edema of the bilateral lower extremities. RESPIRATORY: Chest is clear to auscultation bilaterally. Bilateral equal air entry. No rales or rhonchi. ABDOMEN: Soft, positive bowel sounds, nontender. MUSCULOSKELETAL: The patient has erythema and swelling of the left extremity starting from the hand all the way up to the shoulder which is tender and there is a dressing on the arteriovenous (AV) fistula site. CENTRAL NERVOUS SYSTEM (TECHNICAL SUPPORT ASSOCIATE): No focal deficit. Power is 5/5 in the right upper extremity. He follows commands. LABORATORY REVIEW: CBC showed a WBC 3.5, hemoglobin 10.4, platelets are 95. BMP showed sodium 137, potassium 4.8, chloride 102, bicarbonate 24, BUN 90, creatinine is 6.2, AST 155, ALT is 97, alkaline phosphatase is 487. C-reactive protein is 10.4, albumin is 1.7. MICROBIOLOGY: Repeat blood cultures were sent yesterday. Results are pending. IMAGING STUDIES: A CAT scan of the chest was done yesterday which showed subcutaneous emphysema extending from the suture line into the axilla, 5.2 cm subcutaneous soft tissue mass in the anterolateral left chest wall. CURRENT INPATIENT MEDICATIONS: The patient's medications were all reviewed by me. His IV antibiotics were changed from cefepime to Ancef 2 grams IV daily and vancomycin has been stopped. No other change in the medications today as compared with yesterday. ASSESSMENT AND PLAN: 1. End-stage renal disease, on hemodialysis. The patient's regular dialysis days are Sunday, , Sunday. Today, he will be dialyzed with an ultrafiltration goal of around 1.5 to 2 liters as tolerated by his blood pressure. 2. Anemia and end-stage renal disease. Hemoglobin is 10.4 which is optimal. Continue current dose of Aranesp 200 mcg with dialysis. 3. Sepsis secondary to left upper arm arteriovenous (AV) fistula site infection along with a Staphylococcus aureus bacteremia. The patient is growing Staphylococcus and Klebsiella from the wound. Initially, he was on vancomycin and Zosyn, then he was switched from Zosyn to cefepime, and yesterday he was seen by infectious disease and he has been started on cephazolin 2 grams IV daily. Repeat blood cultures are pending. 4. Neutropenia, most likely associated with vancomycin. Vancomycin has been stopped now.
--- NOTE | 2019-07-22 18:56 | IPNPDOC ---
Subjective Date Seen The patient was seen on 07/22/19 during HD Subjective Chief Complaint/HPI Resting in bed, no complaints at this time. Low-grade temp lat night 100.2, afebrile this am. Denies any acute pain involving Left arm. Constitutional: Reports: Fever Objective Physical Examination General Exam: Positive: Cooperative, No Acute Distress Eye Exam: Positive: PERRLA, EOMI Neck Exam: Positive: Supple, +2 carotid pulse wo bruit Chest Exam: Positive: Clear to auscultation, Normal air movement, Rales; Negative: Rhonchi, Wheezing Heart Exam: Positive: Rate Normal, Normal S1, Normal S2; Negative: Murmurs Abdomen Exam: Positive: Normal bowel sounds; Negative: Tenderness, Mass Skin Exam: Positive: Breakdown (vesicular lesion underneath his axilla with blistering.) Psych Exam: Positive: Mental status NL Assessment /Plan Assessment # left upper extremity AV fistula with complication (wound infection (klebsiella)+ (MSSA) bacteremia) - Management per the vascular surgery service. - ID note reviewed, will d/w with Vascular surgery in am whether I&D warranted # CKD stage V hemodialysis dependent - inpatient HD mgmt per nephro # Anemia of Chronic kidney disease - on Aranesp with HD, Hgb stable # MSSA Bacteremia - IV cefazolin, will likely need 6 wks of IV abx # Pancytopenia - likely due to acute infection plus vanco and underlying unspecified chronic BM suppression Plan/VTE VTE Prophylaxis Ordered?: Yes VS, I&O, 24H, Fishbone Vital Signs/I&O Vital Signs Date Time Temp Pulse Resp B/P (MAP) Pulse Ox O2 Delivery O2 Flow Rate FiO2 07/22/19 18:00 98.3 95 17 106/56 (73) 99 07/22/19 07:00 Room Air 07/18/19 14:48 2.0 I&O- Last 24 Hours up to 6 AM 07/22/19 05:59 Intake Total 1285 ml Output Total 69 ml Balance 1216 ml Laboratory Data 24H LABS Laboratory Tests 2 07/22/19 05:12: Nucleated Red Blood Cells % (auto) 0.0, Immature Platelet Fraction 4.0, Erythrocyte Sedimentation Rate 65H, Prothrombin Time 14.3H, Prothromb Time International Ratio 1.14, Anion Gap 11, Glomerular Filtration Rate 9.7L, Blood Urea Nitrogen 90H, Creatinine 6.26H, Sodium Level 137, Potassium Level 4.8, Chloride Level 102, Carbon Dioxide Level 24, Calcium Level 8.5L, Aspartate Amino Transf (AST/SGOT) 155H, Alanine Aminotransferase (ALT/SGPT) 97H, Alkaline Phos phatase 487H, Total Bilirubin 0.8, Total Protein 5.3L, Albumin 1.7L, C-Reactive Protein, Quantitative 10.40H, Albumin/Globulin Ratio 0.47L CBC/BMP Laboratory Tests 07/22/19 05:12 Red Blood Count 3.30 L, Mean Corpuscular Volume 96.7 H, Mean Corpuscular Hemoglobin 31.5, Mean Corpuscular Hemoglobin Concent 32.6, Red Cell Distribution Width 17.4 H, Calcium Level 8.5 L, Aspartate Amino Transf (AST/SGOT) 155 H, Alanine Aminotransferase (ALT/SGPT) 97 H, Alkaline Phosphatase 487 H, Total Bilirubin 0.8, Total Protein 5.3 L, Albumin 1.7 L Microbiology Microbiology 07/22/19 Blood Culture, Received Pending 07/21/19 Blood Culture - Preliminary, Resulted No growth after 24 hours . All specim... 07/16/19 Blood Culture - Final, Complete Staphylococcus Aureus 07/16/19 Blood Culture - Final, Complete Staphylococcus Aureus 07/16/19 Gastrointestinal Tract Panel (PCR) - Final, Complete 07/18/19 Wound Culture - Final, Complete Klebsiella Pneumoniae Staphylococcus Aureus 07/18/19 Anaerobic Culture - Final, Complete 07/18/19 Anaerobic Culture - Final, Complete 07/18/19 Wound Culture - Final, Complete Klebsiella Pneumoniae Staphylococcus Aureus GIOVANNA COVINGTON MD Jul 22, 2019 18:53
[2019-07-22] MEDS: PRAVASTATIN 20 MG TAB PO SCH (20:39)
[2019-07-22] MEDS: ceFAZolin SOD 2 GM in IV 1 EA IV SCH (20:40)
--- NOTE | 2019-07-22 21:14 | IPN ---
DATE: 07/22/2019 SUBJECTIVE: Mr. Chen was seen and examined this afternoon on dialysis. He states that he is feeling a little better. He is tolerating his medications with no problem. He noticed that the tenderness that he had on his chest wall has also improved but has not completely resolved. His left upper extremity continues to be swollen, but his Rashaun-Muller (KAJAL) drain was removed this morning. He does admit today that he is having some watery stools. He has had it since admission, but he noticed that it has become a little bit more watery, that he has more accidents. On July 16 he did have a gastrointestinal (GI) panel that was negative for Clostridium (C) difficile, and he states he was not given anything for it. He was wondering if I can give him anything else. He denies having any nausea, feeling fevers, night sweats. He does admit to having a slight low-grade fever last night around midnight of 100.2 but no other symptoms. He has no other complaints at this time. PHYSICAL EXAMINATION: VITAL SIGNS: Temperature 98.3, pulse 95, respirations 17, blood pressure 106/56 (73), pulse oximetry 99% on 3 liters of nasal cannula. GENERAL: This is a very pleasant 64-year-old elderly male lying comfortably on the bed. Does not appear in any acute distress. Appropriately answering questions. HEENT: Tongue has resection with radical neck dissection but able to communicate and provide a history. No adenopathy. HEART: S1, S2 with regular rate and rhythm with a prominent 3/6 systolic ejection murmur heard best at the left upper sternal border with radiation through the pericardium and into the carotids. LUNGS: Clear to auscultate anteriorly, but posteriorly in the right lower lobe bibasilar crackles can be appreciated. No audible wheezing or rales. Chest wall emphysematous has improved but slightly present in the substernal/subclavicular junction. Vesicular lesions underneath his axilla with hemorrhagic blisters. Significantly swollen left upper arm, erythematous. Slightly tender to touch but improving. Able to move his fingers and make a fist, which is improving from the day before. Right arm: No swelling, no redness. ABDOMEN: Soft, nontender with hyperactive bowel sounds with no hepatosplenomegaly. LOWER EXTREMITIES: Left lower extremity has ulcerating measuring about 2 x 1 cm along the posterior calf inferiorly with no purulence or evidence of infection. Stage I decubitus ulcer. Slightly irritated but no discharge, foul smell. Not tender to touch. Measuring about 2 x 3 cm. LABORATORY DATA: WBC 3.5, hemoglobin 10.4, hematocrit 31.9, platelets 95. Sodium 137, potassium 4.8, chloride 102, carbon dioxide 24, BUN 90, creatinine 6.26, fasting glucose 82, calcium 8.5. AST 155, ALT 97, alkaline phosphatase 487, CRP 10.40. Coagulation: INR 1.14. Microbiology: Blood cultures from 07/16/2019 positive for methicillin-sensitive Staphylococcus aureus (MSSA). Wound cultures positive for Klebsiella pneumoniae and MSSA. Repeat blood cultures from July 21 and July 22: No growth to current. IMAGING: CT of the chest did show skin cesario of the left upper extremity medially, subcutaneous emphysema extending from suture line superiorly into the axilla and across the anterolateral left chest wall in the subclavian area. A 5.2 cm subcutaneous soft tissue mass in the anterolateral left chest wall. Borderline enlarged mediastinal axillary lymph node. Palpable splenomegaly. Bilateral renal cortical atrophy. Chronic mosaic patterns of the apices of the upper lobes bilaterally, some which are calcified. No changes from the prior study. A transthoracic echocardiogram (TTE) completed on 07/21/2019, read by Dr. Montanez, shows degenerative calcified aortic valve disease with severe focal thickening and focal calcific deposits in the three cuspid aortic valves. No effusions of the aortic cusp. Moderate aortic stenosis and mild aortic regurgitation. Mild concentric left ventricular hypertrophy. Normal regional left ventricular (LV) wall motion and wall thickening. Normal LV systolic function, 70% ejection fraction. Mild left atrial dilatation. Moderate mitral annular calcification with no stenosis or mitral regurgitation. Otherwise, normal-appearing Doppler findings. It does recommend repeat echo in 1 year. Antibiotics, cefazolin 2 grams intravenous (IV) every 24 hours. IMPRESSION: This is a 64-year-old male with a vascular graft infection, culture positive for MSSA and Klebsiella pneumoniae and secondary to Staphylococcus aureus bacteremia. The patient has a well-known history of a heart murmur with no previous echocardiogram at [facility]. His customer support associate is Dr. Montanez. The TTE yesterday was negative for any vegetations but he had moderate Because of his MSSA bacteremia we recommend getting a transesophageal echocardiogram to RO endocarditis. CT of the chest also did show a 5.2 cm subcutaneous soft tissue mass on the anterolateral left chest wall. Would recommend primary team discuss with patient further evaluation if needed. Subcutaneous emphysema clinically has improved. Will continue to monitor as such. My only concern is the stability of the left AV fistula, for even though he has had it for 13 years, he has had significant complications with this AV fistula recently, such as an ulceration, needing massive amount of transfusions, as well as multiple revisions for it. Will need to discuss with Dr. Vela if a new site needs to be considered. Patient was also complaining of watery diarrhea. Because of his recent antibiotic changes, unsure of it is Clostridium (C) difficile. Last check of the GI panel was on July 16, which was negative. Will consider rechecking once more for a C. difficile panel. If negative, can consider some probiotics. Stage I decubitus ulcer. Patient states he has a history of this. I did not examine this on the day of admission, so I am unsure if this was there prior. Appears uninfected. I put an Optifoam over it. Will continue to monitor. PLAN: Continue cefazolin 2 grams every 24 hours. Consider possible ultrasound of the 5.2 cm subcutaneous soft tissue on the anterolateral left chest wall to see if it needs to be drained Obtain transesophageal echocardiogram, for the transthoracic echocardiogram was unrevealing for vegetation. Will continue with antibiotics, and pending the results of the ASTRID, will see if IV antibiotic treatment is needed for 2 versus 6 weeks. C. difficile polymerase chain reaction (PCR) for watery loose stools. If positive, can consider starting vancomycin by mouth. If negative, can consider supplementing antibiotics, and if C. difficile is negative, can consider supplementing with probiotics and Imodium if needed. Will continue to monitor the decubitus ulcer. Apply Optifoam and Vaseline on top. My faculty preceptor for this patient encounter was physically present during the encounter and was fully available. All aspects of the patient interview, examination, medical decision making process, and medical care plan development were reviewed and approved by the faculty preceptor. The faculty preceptor is aware and concurs with the plan as stated in the body of this note and will attest to such by his/her co-signature. STIVEN
[2019-07-23] VITALS (16 sets, daily range): BP systolic 89–155; BP diastolic 50–69; O2SAT 95–100
[2019-07-23] MEDS: NS 1,000 ML IV SCH (04:07)
[2019-07-23 05:24] LABS: HEMATOCRIT 28.5 % (42.0-52.0); MEAN CORPUSCULAR HEMOGLOBIN 30.6 pg (27.0-33.0); MEAN CORPUSCULAR HGB CONC 31.6 g/dl (32.0-36.5); MEAN CORPUSCULAR VOLUME 96.9 fl (80.0-96.0); PLATELET COUNT, AUTOMATED 100 10^3/uL (150-450); RED BLOOD COUNT 2.94 10^6/uL (4.30-6.10); WHITE BLOOD COUNT 3.3 10^3/uL (4.0-10.0)
[2019-07-23 05:36] LABS: INR 1.13; PROTHROMBIN TIME 14.2 SECONDS (11.8-14.0)
[2019-07-23 05:57] LABS: ALBUMIN 1.6 GM/DL (3.2-5.2); BILIRUBIN,TOTAL 0.5 MG/DL (0.2-1.0); CALCIUM LEVEL 8.1 MG/DL (8.8-10.2); GLOMERULAR FILTRATION RATE 16.3 (>49); POTASSIUM SERUM 3.5 MEQ/L (3.5-5.1); TOTAL PROTEIN 5.2 GM/DL (6.4-8.2)
[2019-07-23] MEDS: LEVOTHYROXINE 100MCG TABLET (0.1MG) PO SCH (06:33)
[2019-07-23] MEDS: raNITIdine SYRUP 150 MG/10 ML UDC PO SCH ×2 (08:00→21:32)
[2019-07-23] MEDS: VITAMIN D 1,000 INTERNATIONAL UNITS TABLET PO SCH (08:00)
[2019-07-23] MEDS: ASPIRIN 81 MG ENTERIC TAB PO SCH (08:00)
[2019-07-23] MEDS: ASCORBIC ACID 500 MG TAB PO SCH (08:00)
[2019-07-23] MEDS: MULTIVITAMINS/MINERALS THERAP 1 TAB PO SCH (08:00)
[2019-07-23] MEDS: BISACODYL 5 MG TAB PO SCH (08:00)
[2019-07-23] MEDS: MORPHINE 1MG/ML IN 0.9% NACL 100ML IV BAG IV PRN (11:39)
--- NOTE | 2019-07-23 17:03 | IPNPDOC ---
Subjective Date Seen The patient was seen on 07/23/19. Subjective Chief Complaint/HPI Sy is resting in the chair. No acute complaints. Remains afebrile this am Objective Physical Examination General Exam: Positive: Cooperative, No Acute Distress Eye Exam: Positive: PERRLA Neck Exam: Positive: Supple Chest Exam: Positive: Clear to auscultation, Normal air movement, Rales; Negative: Rhonchi, Wheezing Heart Exam: Positive: Rate Normal, Normal S1, Normal S2; Negative: Murmurs Abdomen Exam: Positive: Normal bowel sounds; Negative: Tenderness, Mass Skin Exam: Positive: Breakdown (vesicular lesion underneath his axilla with blistering.) Psych Exam: Positive: Mental status NL Assessment /Plan Assessment # left upper extremity AV fistula with complication (wound infection (klebsie lla)+ (MSSA) bacteremia) - Management per the vascular surgery service. - Per RN, no plan for I+D from vascular standpoint - Both B.Cxs from 07/21, and 07/22 no growth to date # CKD stage V hemodialysis dependent - inpatient HD mgmt per nephro # Anemia of Chronic kidney disease - on Aranesp with HD, Hgb stable # MSSA Bacteremia - IV cefazolin, will likely need 6 wks of IV abx # Pancytopenia - likely due to acute infection plus vanco and underlying unspecified chronic BM suppression - CBC counts stable Plan/VTE VTE Prophylaxis Ordered?: Yes VS, I&O, 24H, Fishbone Vital Signs/I&O Vital Signs Date Time Temp Pulse Resp B/P (MAP) Pulse Ox O2 Delivery O2 Flow Rate FiO2 07/23/19 12:00 97.0 93 20 155/69 (97) 96 07/22/19 12:00 Room Air 07/18/19 14:48 2.0 I&O- Last 24 Hours up to 6 AM 07/23/19 06:00 Intake Total 1000 ml Output Total 1500 ml Balance -500 ml Laboratory Data 24H LABS Laboratory Tests 2 07/23/19 04:59: Nucleated Red Blood Cells % (auto) 0.0, Prothrombin Time 14.2H, Prothromb Time International Ratio 1.13, Anion Gap 10, Glomerular Filtration Rate 16.3L, Blood Urea Nitrogen 42#H, Creatinine 4.00H, Sodium Level 139, Potassium Level 3.5#, Chloride Level 102, Carbon Dioxide Level 27, Calcium Level 8.1L, Aspartate Amino Transf (AST/SGOT) 232H, Alanine Aminotransferase (ALT/SGPT) 140H, Alkaline Phosphatase 478H, Total Bilirubin 0.5, Total Protein 5.2L, Albumin 1.6L, Albumin/Globulin Ratio 0.44L CBC/BMP Laboratory Tests 07/23/19 04:59 Red Blood Count 2.94 L, Mean Corpuscular Volume 96.9 H, Mean Corpuscular Hemoglobin 30.6, Mean Corpuscular Hemoglobin Concent 31.6 L, Red Cell Distribution Width 17.5 H, Calcium Level 8.1 L, Aspartate Amino Transf (AST/SGOT) 232 H, Alanine Aminotransferase (ALT/SGPT) 140 H, Alkaline Phosphatase 478 H, Total Bilirubin 0.5, Total Protein 5.2 L, Albumin 1.6 L Microbiology Microbiology 07/22/19 Blood Culture - Preliminary, Resulted No growth after 24 hours . All specim... 07/21/19 Blood Culture - Preliminary, Resulted No Growth after 48 hours. All Specime... 07/16/19 Blood Culture - Final, Complete Staphylococcus Aureus 07/16/19 Blood Culture - Final, Complete Staphylococcus Aureus 07/16/19 Gastrointestinal Tract Panel (PCR) - Final, Complete 07/18/19 Wound Culture - Final, Complete Klebsiella Pneumoniae Staphylococcus Aureus 07/18/19 Anaerobic Culture - Final, Complete 07/18/19 Anaerobic Culture - Final, Complete 07/18/19 Wound Culture - Final, Complete Klebsiella Pneumoniae Staphylococcus Aureus GIOVANNA COVINGTON MD Jul 23, 2019 17:03
--- NOTE | 2019-07-23 18:23 | IPN ---
DATE: 07/23/2019 SUBJECTIVE: The patient was seen and examined at the bedside today morning. He is afebrile, hemodynamically stable. He was dialyzed yesterday. There was 1.5 liters of fluid removed. He continues to be on patient-controlled (PC) analgesia. He reports that left arm pain is slowly getting better now. OBJECTIVE: Vital signs: Temperature is 97 degrees Fahrenheit, blood pressure 155/69, pulse is 93, respiratory of 20, saturating 96% on room air. Intake and output: There is no urine output recorded. Ultrafiltration with hemodialysis was 1.5 liters. Weight in the bed scale is 78.9 kg. PHYSICAL EXAMINATION: GENERAL: The patient is awake, alert, oriented times three, sitting up in the sofa. No apparent distress. HEAD AND NECK: Extraocular muscles intact. Pupils equally round and reactive to light. Mucous membranes are moist. Neck is supple. There is no jugular venous distention (JVD). Chronic old surgical scars in face and neck were noted. CARDIOVASCULAR: S1, S2, regular rate. No edema of the bilateral lower extremities. RESPIRATORY: Chest is clear to auscultation bilaterally. Bilateral equal air entry. No rales or rhonchi. ABDOMEN: Soft. Positive bowel sounds. Nontender. MUSCULOSKELETAL: The patient has erythema and swelling of the left extremity starting from hand all the way up to the left shoulder, and there is dressing on the arteriovenous (AV) fistula site. CENTRAL NERVOUS SYSTEM: No focal deficit. Power is 5/5 in bilateral upper extremities. LABORATORY REVIEW: CBC showed WBC 3.3, hemoglobin is 9, platelets are 100. BMP showed sodium 139, potassium 3.5, chloride 102, bicarbonate 27, BUN 42, creatinine is 4. Albumin is 1.6. Microbiology: Repeat blood cultures from July 21 and July 22 are negative so far. CURRENT INPATIENT MEDICATIONS: The patient's medications were all reviewed by me. He is currently on intravenous (IV) Ancef. No change in the medications so far. ASSESSMENT AND PLAN: 1. End-stage renal disease. The patient's regular dialysis days are Sunday, , Sunday. He was dialyzed yesterday. Next hemodialysis will be tomorrow morning as tolerated by his blood pressure. 2. Anemia and end-stage renal disease. There is slight drop in the hemoglobin today as compared with yesterday. He continues to be on Aranesp. Will transfuse as needed if hemoglobin drops to 8 or below. 3. Left upper arm AV fistula infection along with Staphylococcus aureus bacteremia. The patient has been started on Ancef by infectious disease. He has a tunneled hemodialysis catheter as well. Once the cultures stay negative, he will need a change of dialysis catheter as well.
[2019-07-23] MEDS: PRAVASTATIN 20 MG TAB PO SCH (21:32)
[2019-07-23] MEDS: ceFAZolin SOD 2 GM in IV 1 EA IV SCH (21:33)
[2019-07-24] VITALS (24 sets, daily range): BP systolic 68–159; BP diastolic 31–109; O2SAT 97–100
[2019-07-24] MEDS ORDERED: PROPOFOL 200 MG/20 ML VIAL As Ordered ONE (04:28)
[2019-07-24] MEDS ORDERED: LIDOCAINE 2% INJ 100 MG/5 ML SDV (FOR ANES.) As Ordered ONE (04:28)
[2019-07-24] MEDS ORDERED: fentaNYL 100 MCG/2 ML INJECTION (J3010) As Ordered ONE ×3 (04:46→12:46)
[2019-07-24] MEDS ORDERED: NS 1,000 ML IV SCH (05:00)
[2019-07-24] MEDS ORDERED: fentaNYL 100 MCG/2 ML INJECTION (J3010) IV PRN (05:00)
[2019-07-24] MEDS: LEVOTHYROXINE 100MCG TABLET (0.1MG) PO SCH (06:00)
[2019-07-24] MEDS ORDERED: NS 500 ML IV ONE (06:00)
[2019-07-24 08:00] LABS: HEMATOCRIT 33.9 % (42.0-52.0); HEMOGLOBIN 10.7 g/dl (13.5-17.5); MEAN CORPUSCULAR HEMOGLOBIN 31.4 pg (27.0-33.0); MEAN CORPUSCULAR HGB CONC 31.6 g/dl (32.0-36.5); MEAN CORPUSCULAR VOLUME 99.4 fl (80.0-96.0); PLATELET COUNT, AUTOMATED 149 10^3/uL (150-450); RED BLOOD COUNT 3.41 10^6/uL (4.30-6.10); WHITE BLOOD COUNT 3.4 10^3/uL (4.0-10.0)
[2019-07-24 08:23] LABS: ALBUMIN 1.8 GM/DL (3.2-5.2); BILIRUBIN,TOTAL 0.6 MG/DL (0.2-1.0); CALCIUM LEVEL 8.4 MG/DL (8.8-10.2); CREATININE FOR GFR 5.41 MG/DL (0.70-1.30); GLOMERULAR FILTRATION RATE 11.5 (>49); POTASSIUM SERUM 3.6 MEQ/L (3.5-5.1); TOTAL PROTEIN 5.6 GM/DL (6.4-8.2)
[2019-07-24] MEDS: BISACODYL 5 MG TAB PO SCH ×2 (09:00→09:41)
[2019-07-24] MEDS: ASPIRIN 81 MG ENTERIC TAB PO SCH (09:41)
[2019-07-24] MEDS: raNITIdine SYRUP 150 MG/10 ML UDC PO SCH (09:41)
[2019-07-24] MEDS: ASCORBIC ACID 500 MG TAB PO SCH (09:41)
[2019-07-24] MEDS: VITAMIN D 1,000 INTERNATIONAL UNITS TABLET PO SCH (09:41)
[2019-07-24] MEDS: MULTIVITAMINS/MINERALS THERAP 1 TAB PO SCH (09:41)
--- NOTE | 2019-07-24 12:17 | ROOPDOC ---
[facility] Report Of Operation Report of Operation DATE OF PROCEDURE: 07/18/2019 PREOPERATIVE DIAGNOSES: Bleeding left basilic vein transposition arteriovenous fistula status post revision. POSTOPERATIVE DIAGNOSES: Eating left basilic vein transposition arteriovenous fistula status post revision. PROCEDURE: Evacuation of hematoma. Revision left basilic vein transposition arteriovenous fistula. Pulse irrigation of the basilic vein and the wound. SURGEON: Dr. Katy Vela M.D. STAPLING MACHINE OPERATOR: None INDICATION: Patient is a 64-year-old male who underwent revision of his left basilic vein transposition arterial venous fistula due to excessive bleeding and aneurysmal degeneration. Patient was doing well postoperatively and today dev eloped bleeding through the incision and was emergently taken to the operating room for evaluation of the fistula and evacuation of hematoma. The procedure was discussed with the patient prior to going to the OR. The procedure was described and explained to the patient in detail including drawing of pictures demonstrating the procedure and the anatomy. Risks, benefits and alternative treatment options were discussed with the patient. Benefits included but were not limited to having a functioning arteriovenous fistula for hemodialysis access and removal of tunneled central venous catheter once the fistula is successfully being used. Alternative treatment options included but were not limited to no intervention with continued conservative management. Risks included but were not limited to infection, bleeding, worsening of renal failure requiring hemodialysis sooner than expected, failure of arteriovenous to maintain patency with thrombosis, failure of arteriovenous fistula to mature requiring secondary intervention, steal syndrome, anesthetic complication, bruising, scarring, nerve damage, possible need for transfusion of blood produc ts,, possible need for further open surgical intervention, cerebrovascular accident, myocardial infarction, pulmonary embolus , deep venous thrombosis, reaction or complication from the prepping and draping materials, numbness, tingling, swelling of the extremity, loss of limb, loss of life and poor outcome. Patient's questions were answered. Patient voices understanding of the risks, benefits and alternative treatment options. Patient voices acceptance of these risks, benefits and alternative treatment options and consents to proceed with arteriovenous fistula formation.. There were no promises or guarantees made to the patient regarding the results and/or outcome of the procedure. ANESTHESIA: Local Mac. IVF: 1 unit of packed red blood cells ESTIMATED BLOOD LOSS: 150 mL acute blood loss and 400 mL of old hematoma which appeared infected. HEPARIN:None PROTAMINE:None COMPLICATIONS:None DRAINS: #10 KAJAL SPECIMENS: Old hematoma sent for culture and sensitivity IMPLANTS:None FINDINGS: No active bleeding was noted there was old hematoma that appeared infected. DESCRIPTION OF PROCEDURE: Patient was taken to operating room, placed supine on the operating room table, and the patient was prepped and draped in a standard surgical fashion. A time-out was then conducted by myself and the team members in the room confirming the correct patient, procedure and laterality. The incision was reopened with removal of the cesario. There was no active bleeding noted but there was a large amount of old hematoma which appeared infected. The wound and basilic vein were pulse irrigated with 3 L of saline. The staple line along the course of the basilic vein was oversewn with a 6-0 Prolene suture. There was good flow noted in the fistula at the completion of the procedure. A #10 KAJAL was placed in the wound through a puncture wound below the incision Hemostasis was obtained. The fistula was secured to the fascia of the muscle to position the fistula in a good location after which the advancement flaps were approximated using 2-0 Vicryl to approximate the deeper layers and cesario to approximate the skin. Dressings were then applied. Patient tolerated the procedure well. All instrument, sponge and needle counts were correct at the end of the case. Dr. Vela was present for and directed the entire case. Patient was transferred to the recovery room awake, alert and in stable condition. The pro cedure was explained and discussed with the patient in the postsurgical recovery area with all questions being answered. There was a strong thrill in the fistula at the completion of the revision. The patient was transferred to the ICU in stable condition. Joey Vela MD Jul 24, 2019 12:17
--- NOTE | 2019-07-24 12:17 | ROOPDOC ---
[facility] Report Of Operation Report of Operation DATE OF PROCEDURE: 07/24/2019 PREOPERATIVE DIAGNOSES: Bleeding left basilic vein transposition arteriovenous fistula status post revision. POSTOPERATIVE DIAGNOSES: Bleeding left basilic vein transposition arteriovenous fistula status post revision. PROCEDURE: Ligation of the left basilic vein transposition autogenous arteriovenous fistula. SURGEON: Dr. Katy Vela M.D. DOUGH MACHINE OPERATOR: None INDICATION: Patient is a 64-year-old male with end-stage renal disease who previously dialyzes through a autogenous left basilic vein transposition arteriovenous fistula. Patient became aneurysmal and had difficulty with excessive bleeding and ulceration over the vein and the patient subsequently underwent revision of the fistula but has had 2 episodes of bleeding now. The episode this evening occurred in the middle the night with the patient moving in bed and started bleeding at approximately 3:45 AM. Patient was taken emergently to the operating room for evaluation and possible revision and/or ligation of the basilic vein transposition arteriovenous fistula. The procedure was described and explained to the patient in detail including drawing of pictures demonstrating the procedure and the anatomy. Risks, benefits and alternative treatment options were discussed with the patient. Benefits included but were not limited to having a functioning arteriovenous fistula for hemodialysis access and removal of tunneled central venous catheter once the fistula is successfully being used. Alternative treatment options included but were not limited to no intervention with continued conservative management. Risks included but were not limited to infection, bleeding, worsening of renal failure requiring hemodialysis sooner than expected, failure of arteriovenous to maintain patency with thrombosis, failure of arteriovenous fistula to mature requiring secondary intervention, steal syndrome, anesthetic complication, bruising, scarring, nerve damage, possible need for transfusion of blood products,, possible need for further open surgical intervention, cerebrovascular accident, myocardial infarction, pulmonary embolus , deep venous thrombosis, reaction or complication from the prepping and draping materials, numbness, tingling, swelling of the extremity, loss of limb, loss of life and poor outcome. Patient's questions were answered. Patient voices understanding of the risks, benefits and alternative treatment options. Patient voices acceptance of these risks, benefits and alternative treatment options and consents to proceed with arteriovenous fistula formation.. There were no promises or guarantees made to the patient regarding the results and/or outcome of the procedure. The patient's was notified by phone that he was being taken to the operating room emergently. ANESTHESIA: Mac. IVF: 150 mL. ESTIMATED BLOOD LOSS: 25 mL. HEPARIN:None PROTAMINE:None COMPLICATIONS:None DRAINS:None SPECIMENS:None IMPLANTS:None FINDINGS: No obvious bleeding was noted but there was old hematoma in the wound. DESCRIPTION OF PROCEDURE: Patient was taken to operating room, placed supine on the operating room table, and the patient was prepped and draped in a standard surgical fashion. A time-out was then conducted by myself and the team members in the room confirming the correct patient, procedure and laterality. The incision was was opened with removal of cesario. The basilic vein was identified and there was no obvious bleeding noted but there was old hematoma in the wound. The basilic vein was then ligated using 0 silk suture and 3-0 Prolene suture at the proximal and distal ends of the basilic vein. The basilic vein was then transected proximally and distally and past for pathologic evaluation. Hemostasis was obtained. The wound was packed with wet 4 x 4's soaked in normal saline solution. Dressings were then applied. Patient camden rated the procedure well. All instrument, sponge and needle counts were correct at the end of the case. Dr. Vela was present for and directed the entire case. Patient was transferred to the recovery room awake, alert and in stable condition. The procedure was explained and discussed with the patient in the postsurgical recovery area with all questions being answered. Patient was transferred to the ICU in stable condition. Joey Vela MD Jul 24, 2019 12:17
[2019-07-24] MEDS ORDERED: LIDOCAINE 2% MDV 20 ML VIAL As Ordered ONE (12:20)
[2019-07-24] MEDS ORDERED: BUPIVACAINE HCL 0.5% 10 ML VIAL As Ordered ONE (12:20)
[2019-07-24] MEDS ORDERED: diphenhydrAMINE INJ 50MG/ML VIAL (J1200) As Ordered ONE (12:45)
[2019-07-24] MEDS ORDERED: MIDAZOLAM INJ 2 MG/2 ML VIAL (J2250) As Ordered ONE (12:46)
--- NOTE | 2019-07-24 13:28 | IPN ---
DATE OF SERVICE: 07/24/2019 SUBJECTIVE: Patient was seen and examined at the bedside today morning in the intensive care unit (ICU). Last night events were noted. The patient started bleeding again from the arteriovenous (AV) fistula site. He was taken to the operating room (OR) emergently. Left upper arm AV fistula was excised. He has a compression bandage on the arm and he is getting packed red blood cells (PRBC) transfusions; 2 units of blood has been ordered. Today is patient's regular day of dialysis. Patient was hypotensive today morning. Patient is otherwise awake and able to communicate and follow commands. OBJECTIVE: Vital signs: Temperature is 98.1 degrees Fahrenheit. Blood pressure is 93/46, pulse is 96, respiratory rate of 14, saturating 100% on room air. Intake and output: There is no urine output recorded. Weight in the bed scale was 78.9 mL yesterday. PHYSICAL EXAMINATION: General: Patient is awake, alert, oriented times three, laying in bed, in no apparent distress. Head and neck exam: Pupils equally round and reactive to light. Neck has old surgical scars. There is no jugular venous distention (JVD). Cardiovascular: S1, S2, regular rate. No edema of the bilateral lower extremities. He has a right internal jugular (IJ) tunneled hemodialysis catheter and he is getting the blood transfusion through the catheter. Abdomen: Soft, positive bowel sounds. Nontender. No organomegaly. Musculoskeletal: No clubbing or cyanosis. Right leg is shortened and externally rotated. Left upper arm has a large compression bandage. Dressing is not soaked. 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 The patient is awake and follows commands. LAB REVIEW: CBC showed WBC 3.4, hemoglobin 10.7, platelets of 149. BMP showed sodium 138, potassium 3.6, chloride 102, bicarbonate 26, BUN 61, creatinine is 5.4, AST is 146, ALT is 53, alkaline phosphatase is 497, albumin is 1.8. CURRENT INPATIENT MEDICATIONS: Patient's medications were all reviewed by me. He was given normal saline 500 mL bolus today morning. He continues to be on IV Ancef. No other change in the medications today as compared with yesterday. ASSESSMENT/PLAN: 1. End-stage renal disease. Today is patient's regular day of dialysis. 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 Electrolytes are within the acceptable range. 2. Anemia secondary to acute bleeding from the left arm and end-stage renal disease. Patient is getting 2 units of PRBC transfusions, which were ordered by vascular surgery. Hemoglobin level is within the acceptable range. 3. Left upper arm AV fistula site infection and bleeding. Patient is currently getting Ancef as recommended by infectious disease, and he got the fistula excised by vascular surgery overnight. 4. Protein calorie malnutrition. Patient only can take liquid diet. He is taking Nepro and protein shakes.
[2019-07-24] MEDS ORDERED: HEPARIN 1,000 UNITS/ML 10ML VIAL (FOR RADIOLOGY& DIALYSIS ONLY) As Ordered ONE (13:29)
[2019-07-24] MEDS: NS 1,000 ML IV SCH (14:08)
[2019-07-24] MEDS: MORPHINE 1MG/ML IN 0.9% NACL 100ML IV BAG IV PRN (14:08)
--- NOTE | 2019-07-24 14:16 | ROOPDOC ---
[facility] Report Of Operation Report of Operation DATE OF PROCEDURE: 07/24/2019 ATTENDING SURGEON: DR. Katy Vela M.D. ASSISTANTS: Farnaz Lopez PREOPERATIVE DIAGNOSES: Poor IV access, end-stage renal disease POSTOPERATIVE DIAGNOSES: For IV access, end-stage renal disease PROCEDURES: Ultrasound-guided right brachial vein cannulation. Fluoroscopic guided right brachial vein 43 cm PICC line placement. Right brachial artery cannulation with angiogram. INDICATION: The patient is 64-year-old male with end-stage renal disease and a left basilic vein transposition arteriovenous fistula that has undergone multiple revisions and subsequent ligation and removal of the fistula. Patient requires access centrally. Patient will undergo placement of a right upper extremity PICC line placement. The procedure was described and explained in detail to the patient including drawing of pictures demonstrating the procedure and pertinent anatomy. Risks, benefits and alternative treatment options were discussed with the patient. Alternative treatment options included but were not limited to no intervention. Benefits include but were not limited to placement of a central venous catheter for central venous access.. Risks included but were not limited to infection, bleeding, retroperitoneal hematoma, cannulation site deep venous thrombosis possible need for open surgical intervention, possible requirement for transfusion of blood products, allergic reaction and/or complication from IV contrast, allergic reaction and/or complication from the prepping and draping materials, allergic reaction and/or complication from local anesthetic and/or IV sedation medications, scarring of the skin, bruising, nerve injury, pain, cerebrovascular accident, myocardial infarction, pulmonary embolus, deep venous thrombosis, poor patient satisfaction, poor results, poor outcome, loss of limb and loss of life. Risks of not performing the procedure included but were not limited to lack of central venous access for instillation of medication and blood products, . Patient's questions were answered. Patient voices understanding of these risks, benefits and alternative treatment options. Patient voices acceptance of the risks associated with PICC line placement and agrees to proceed with the procedure excepting the associated risks of the procedure. There were no guarantees or promises made to the patient regarding the results or outcome of the procedure. ANESTHESIA: Local with 5 mL of 2% lidocaine mixed with 0.5% Marcaine. FLUORO TIME: 5.4 minutes. CONTRAST: 3 cc. of Isovue-300 COMPLICATIONS: [None] DRAINS: [None] SPECIMENS: [None] ESTIMATED BLOOD LOSS: 10 mL. INTRAVENOUS (IV) FLUID: 50 mL. HEPARIN: None PROTAMINE: None SPECIMENS: None IMPLANTS: Retrievable Option Elite inferior vena cava filter. DESCRIPTION OF PROCEDURE: Patient was taken to the vascular angiography suite and placed supine on the angiography room table. Patient was prepped and draped in a standard surgical fashion. A timeout was conducted by myself and the team members in the room confirming the correct patient, procedure and laterality. Ultrasound was then used to evaluate the right brachial vein at the antecubital fossa, which was noted to be easily compressible, widely patent, and free of thrombus. The micropuncture needle was then used to cannulate the right brachial vein at the antecubital fossa using ultrasound guidance after anesthetizing the overlying skin and subcutaneous tissue with 2% lidocaine mixed with 0.5% Marcaine. Ultrasound was then used to guide cannulation of the right brachial vein at the antecubital fossa with real-time concurrent visualization of the entry of the needle into the right brachial vein at the antecubital fossa with a hardcopy image preserved. The micropuncture wire was advanced through the micropuncture needle which was upsized to a micropuncture sheath. Fluoroscopy was then used to place the wire in the superior vena cava through the micropuncture sheath which was upsized to an introducer sheath. There was difficulty in getting the wire to pass down into the superior vena cava and a catheter was advanced over the wire and angiogram performed showing that the catheter was actually in the right brachiocephalic artery and not the innominate vein. The catheter was then removed and manual compression applied at the brachial artery for hemostasis which was noted. Ultrasound was then used to evaluate the right brachial vein at the antecubital fossa, which was noted to be easily compressible, widely patent, and free of thrombus. The micropuncture needle was then used to cannulate the right brachial vein at the antecubital fossa using ultrasound guidance after anesthetizing the overlying skin and subcutaneous tissue with 2% lidocaine mixed with 0.5% Marcaine. Ultrasound was then used to guide cannulation of the right brachial vein at the antecubital fossa with real-time concurrent visualization of the entry of the needle into the right brachial vein at the antecubital fossa with a hardcopy image preserved. The micropuncture wire was advanced through the micropuncture needle which was upsized to a micropuncture sheath. Fluoroscopy was then used to place the wire in the superior vena cava through the micropuncture sheath which was upsized to an introducer sheath. The PICC line was measured and cut to 43 cm and then advanced over the wire through the introducer sheath which was removed. Both ports were aspirated noted to aspirate easily and then flushed with heparinized saline. The final fluoroscopic image showed the PICC line to be good position and good alignment with the tip in the superior vena cava right atrial junction with no pneumo-or hemothorax noted Dressings were then applied. The patient tolerated the procedure well. All instrument, sponge, and needle counts were correct at the end of the case. There were no complications. Dr. Vela was present for and directed the entire case. The patient was transferred to the holding area and subsequently to the ICU in stable condition. The procedure and the results were discussed with the patient in the postprocedure holding area with all the patient's questions being answered. RADIOLOGIC SUPERVISION AND INTERPRETATION: The ultrasound showed the right brachial vein at the antecubital fossa to be widely patent, easily compressible and free of thrombus. Ultrasound was used to guide cannulation with real-time concurrent visualization of the entry of the needle into the right brachial vein at the antecubital fossa with a hardcopy image preserved. The distance to these. Vena cava right atrial junction was measured in the PICC line was cut to 43 cm and placed under fluoroscopic guidance with the final fluoroscopic image showing the PICC line to be in good position and good alignment with the tip in the superior vena cava right atrial junction. Pneumo-or hemothorax was noted. There was inadvertent cannulation of the right brachial artery with an angiogram performed demonstrating position within the subclavian artery. CONCLUSION: Patient underwent placement of 43 cm PICC line in the right brachial vein.. PLAN: The right brachial vein 43 cm PICC line is stable for use. Joey Vela MD Jul 24, 2019 14:16
[2019-07-24] MEDS ORDERED: ENTER DRUG NAME HERE (PATIENT'S OWN MED) PO SCH (15:45)
--- NOTE | 2019-07-24 15:47 | IPNPDOC ---
Subjective Date Seen The patient was seen on 07/24/19. Subjective Chief Complaint/HPI - Overnight events reviewed with ICU- RN. Last night developed exsanguination from recently revised LUE fistula, associated hypotension, prompting emergent OR visit for removal of fistula, and tx of 2 units PRBCs, transferrred to ICU last night. Hypotensive this am, but BP doing much better now. PICC line placed this am by IR. Hgb stable following transfusion. - c/o indegestion, doesn't feel that zantac in helping prefers to take his tag amet - Remains on [facility]. Objective Physical Examination General Exam: Positive: Cooperative, No Acute Distress Eye Exam: Positive: PERRLA Neck Exam: Positive: Supple Chest Exam: Positive: Clear to auscultation, Normal air movement, Rales; Negative: Rhonchi, Wheezing Heart Exam: Positive: Rate Normal, Normal S1, Normal S2; Negative: Murmurs Abdomen Exam: Positive: Normal bowel sounds, Soft; Negative: Tenderness, Mass, Hernia Skin Exam: Positive: Breakdown (vesicular lesion underneath his axilla with blistering.) Psych Exam: Positive: Mental status NL Assessment /Plan Assessment # left upper extremity AV fistula with complication (wound infection (kleb siella)+ (MSSA) bacteremia) - Management per the vascular surgery service. - POD # 0 for removal of recently revised LUE AV fistula due to exsanguination - Both B.Cxs from 07/21, and 07/22 no growth to date # CKD stage V hemodialysis dependent - inpatient HD mgmt per nephro # Anemia of Chronic kidney disease - on Aranesp with HD, Hgb stable # MSSA Bacteremia - IV cefazolin, will likely need 6 wks of IV abx (day # ) # Pancytopenia - likely due to acute infection plus vanco and underlying unspecified chronic BM suppression - CBC counts stable following transfusion - platelet counts seem to have rebounded # GERD - stop zantac - start omeprazole # DVT prophylaxis - SCDs Plan/VTE VTE Prophylaxis Ordered?: Yes VS, I&O, 24H, Fishbone Vital Signs/I&O Vital Signs Date Time Temp Pulse Resp B/P (MAP) Pulse Ox O2 Delivery O2 Flow Rate FiO2 07/24/19 14:06 82 16 116/58 (77) 98 07/24/19 13:40 2 07/24/19 12:40 98.1 07/24/19 12:00 Room Air I&O- Last 24 Hours up to 6 AM 07/24/19 06:00 Intake Total 1200 ml Output Total 25 ml Balance 1175 ml Laboratory Data 24H LABS Laboratory Tests 2 07/24/19 07:46: Nucleated Red Blood Cells % (auto) 0.0, Anion Gap 10, Glomerular Filtration Rate 11.5L, Blood Urea Nitrogen 61H, Creatinine 5.41H, Sodium Level 138, Potassium Level 3.6, Chloride Level 102, Carbon Dioxide Level 26, Calcium Level 8.4L, Aspartate Amino Transf (AST/SGOT) 146H, Alanine Aminotransferase (ALT/SGPT) 53, Alkaline Phosphatase 497H, Total Bilirubin 0.6, Total Protein 5.6L, Albumin 1.8L, Albumin/Globulin Ratio 0.47L CBC/BMP Laboratory Tests 07/24/19 07:46 Red Blood Count 3.41 L, Mean Corpuscular Volume 99.4 H, Mean Corpuscular Hemoglobin 31.4, Mean Corpuscular Hemoglobin Concent 31.6 L, Red Cell Distribution Width 17.3 H, Calcium Level 8.4 L, Aspartate Amino Transf (AST/SGOT ) 146 H, Alanine Aminotransferase (ALT/SGPT) 53, Alkaline Phosphatase 497 H, Total Bilirubin 0.6, Total Protein 5.6 L, Albumin 1.8 L Microbiology Microbiology 07/22/19 Blood Culture - Preliminary, Resulted No Growth after 48 hours. All Specime... 07/21/19 Blood Culture - Preliminary, Resulted No Growth after 72 hours. All specime... 07/16/19 Blood Culture - Final, Complete Staphylococcus Aureus 07/16/19 Blood Culture - Final, Complete Staphylococcus Aureus 07/16/19 Gastrointestinal Tract Panel (PCR) - Final, Complete 07/18/19 Wound Culture - Final, Complete Klebsiella Pneumoniae Staphylococcus Aureus 07/18/19 Anaerobic Culture - Final, Complete 07/18/19 Anaerobic Culture - Final, Complete 07/18/19 Wound Culture - Final, Complete Klebsiella Pneumoniae Staphylococcus Aureus GIOVANNA COVINGTON MD Jul 24, 2019 15:47
[2019-07-24] MEDS: OMEPRAZOLE 20 MG CAP PO SCH (17:41)
[2019-07-24] MEDS: SODIUM CHLORIDE 0.9% INJ 10 ML SYR IV SCH (18:00)
--- NOTE | 2019-07-24 20:32 | REPVR ---
PROCEDURE INFORMATION: Exam: US Vessel Map for Hemodialysis Exam date and time: 07/24/2019 7:46 PM Clinical history: 64 years old, male; Symptoms: Esrd; Additional info: Esrd, right arm only please TECHNIQUE: Imaging protocol: US vessel mapping for hemodialysis access, including arterial inflow and venous outflow with image documentation. COMPARISON: US Duplex, Ext,LOWER veins,unilat LEFT 06/11/2019 7:40 AM FINDINGS: Basilic vein measures 3.4 mm proximally, 5.1 mm at the level of the mid humerus, 6 mm at the distal humerus, 2.7 mm in the proximal forearm, 1.6 mm in the midforearm and 2.4 mm the lower 4 forearm. Cephalic vein measures 1.5 mm in the proximal humerus, 1.8 mm in the mid humerus, 1.4 mm at the distal humerus, 2.1 mm in the midforearm and 1.5 mm lower forearm. Axillary artery demonstrates a peak systolic velocity of 52 cm/s, brachial artery 58 cm/s, radial artery 42 cm/s, and ulnar artery 35 cm/s. All waveforms triphasic. Axillary artery measures 7.5 mm, brachial artery 7 mm, radial artery 2 mm and ulnar arteries. PICC line demonstrated in the basilic vein at the distal humerus extending proximal to the axillary vein. Evaluation limited due to the presence of bandages at the antecubital fossa. IMPRESSION: Arterial and venous vessel mapping as described above as arterial and venous vessel sizes as indicated above. Electronically signed by: Bhupinder Gutierrez On 07/24/2019 20:31:59 PM
[2019-07-24] MEDS: PRAVASTATIN 20 MG TAB PO SCH (20:41)
[2019-07-24] MEDS: ceFAZolin SOD 2 GM in IV 1 EA IV SCH (20:49)
--- NOTE | 2019-07-24 22:31 | IPN ---
DATE: 07/24/2019 SUBJECTIVE: Patient was seen and examined in this afternoon, laying comfortably at bedside in the ICU. Early this morning, the patient started bleeding from his AV fistula and was emergently taken to the OR for left upper arm AV fistula excision. He has gotten 2 units of blood transfused and currently the site is wrapped with bandage and 4 x 4s. The patient states that he is feeling relatively well. He does have some discomfort with tenderness at the sternoclavicular joint area, but it is improving. He has continued to have crepitus, but not as significant. He denies having any lightheadedness, dizziness, nausea, vomiting, diarrhea. He denies having any more fevers since the . His blood pressure has been in the lower end, but has been improving throughout the day after dialysis. He has no other complaints at this time. PHYSICAL EXAMINATION: Vitals: Temperature 98.7, pulse 76, blood pressure 119/56 (77). Respiration rate 14, pulse ox 98% on 2 liters of nasal cannula. GENERAL: This is a very pleasant 64-year-old male who does not appear in any acute distress. Laying comfortably in the bed. Alert and oriented times three. HEENT: Atraumatic, normocephalic. Pupils are equal, round and reactive. Old surgical scars appreciated on the neck with no obvious jugular venous distention (JVD) noted. No lymphadenopathy noted. CHEST: Continues to have slight tenderness at the sternoclavicular joint with some crepitus. Erythema has improved, but there is slight induration in the upper clavicle towards the left shoulder. Significant lymphedema of the left upper extremity. The upper arm is currently wrapped in 4 x 4s. Able to make a fist with no discomfort and dressings are no soaked. HEART: S1, S2. Continues to have significant 3/6 systolic ejection murmur heard best at the left upper sternal border with radiation to the pericardium and to the carotids bilaterally. LUNGS: Clear to auscultation bilaterally. No audible wheezing, rhonchi or rales. Crackles that were appreciated two days ago have improved. ABDOMEN: Soft, nontender with normal bowel sounds in all four quadrants. LOWER EXTREMITIES: Left lower extremity has an ulceration that measures about3 x 1 cm along the posterior calf inferiorly with no purulence or evidence of infection. Stage I decubitus ulcer. Slightly irritated with no discharge or foul smell. Measuring about 2 x 3 cm. INTEGUMENTARY: Vesicular lesions appreciated underneath the axilla with hemorrhagic blisters. Continues to be slightly tender to touch, but is improving. Right upper extremity: No swelling. No tenderness. No erythema noted. LABORATORIES: WBC 3.4, hemoglobin 10.7, hematocrit 33.9, platelets 149. Chemistry: Sodium 138, potassium 3.6, chloride 102, carbon dioxide 26, BUN 61, creatinine 5.41. Fasting glucose 102, calcium 8.4, AST 146, ALT 53, alkaline phosphatase 497. Microbiology: Blood cultures from 07/16 positive for MSSA times two. Repeat blood cultures on 07/21 and 07/22 no growth until now. Blood bank: A total of 9 packed RBCs have been transfused during this admission. ANTIBIOTICS: Cefazolin 2 grams every 24 hours IV. IMPRESSION: This is a 64-year-old male with a vascular graft infection. Cultures positive for MSSA and Klebsiella pneumoniae as well as staphylococcus aureus bacteremia. The patient has a well known history of a heart murmur, recent TTE did not show any vegetation. Did show significant calcifications and aortic stenosis. Because of his MSSA bacteremia, we do recommend getting transesophageal echocardiogram to rule out endocarditis, which can be done once the patient is more stable and prior to discharge. For his left upper sternoclavicular tenderness and some crepitus, CT of the chest done on 07/21 did show a 5.2 subcutaneous soft tissue mass. Would recommend the primary team to possibly do further evaluation. Patient does have a history of osteomyelitis on the right clavicular many years prior. He possibly will need to have that mass evaluated with ultrasound and possible drainage or aspiration. For instability of his left AV fistula, early this morning he did have a revision of the AV fistula. Currently he has an open wound that was not visualized. There is discussion about a wound Vac being placed this weekend and he will go back possibly Sunday for possible closure or further revision. Will defer to Dr. Vela for further recommendations. For his bacteremia and his wound culture results, we do recommend continuing with the cephazolin 2 grams every 24 hours. PLAN: Continue within cephazolin 2 grams every 24 hours. Consider possible ultrasound of the 5.2 subcutaneous soft tissue mass on the anterolateral left chest wall to see if it needs to be drained. Review case with Dr. Dseai for further recommendation if needed. Obtain transesophageal echocardiogram for the TTE was unremarkable for vegetation. Will need to have this done prior to being discharged once the patient is more medically stable. Based on findings, will see if patient needs to be placed 2 versus 6 weeks of antibiotics. My faculty preceptor for this patient encounter was physically present during the encounter and was fully available. All aspects of the patient interview, examination, medical decision making process, and medical care plan development were reviewed and approved by the faculty preceptor. The faculty preceptor is aware and concurs with the plan as stated in the body of this note and will attest to such by his/her co-signature. STIVEN
[2019-07-25] VITALS (9 sets, daily range): BP systolic 89–131; BP diastolic 46–57
[2019-07-25 05:29] LABS: HEMATOCRIT 31.8 % (42.0-52.0); HEMOGLOBIN 10.5 g/dl (13.5-17.5); PLATELET COUNT, AUTOMATED 145 10^3/uL (150-450); RED BLOOD COUNT 3.28 10^6/uL (4.30-6.10); WHITE BLOOD COUNT 2.9 10^3/uL (4.0-10.0)
[2019-07-25 05:44] LABS: ALBUMIN 1.6 GM/DL (3.2-5.2); BILIRUBIN,TOTAL 0.6 MG/DL (0.2-1.0); CALCIUM LEVEL 7.5 MG/DL (8.8-10.2); CREATININE FOR GFR 6.33 MG/DL (0.70-1.30); GLOMERULAR FILTRATION RATE 9.6 (>49); POTASSIUM SERUM 4.1 MEQ/L (3.5-5.1); TOTAL PROTEIN 4.4 GM/DL (6.4-8.2)
[2019-07-25] MEDS: LEVOTHYROXINE 100MCG TABLET (0.1MG) PO SCH (06:12)
[2019-07-25] MEDS: SODIUM CHLORIDE 0.9% INJ 10 ML SYR IV SCH ×2 (06:12→18:10)
[2019-07-25] MEDS: MULTIVITAMINS/MINERALS THERAP 1 TAB PO SCH (09:00)
[2019-07-25] MEDS: BISACODYL 5 MG TAB PO SCH (09:00)
[2019-07-25] MEDS: DAKIN'S 0.25% HALF-STRENGTH SOLN 480 ML TOP SCH ×2 (11:30→20:49)
[2019-07-25] MEDS: VITAMIN D 1,000 INTERNATIONAL UNITS TABLET PO SCH (11:57)
[2019-07-25] MEDS: ASCORBIC ACID 500 MG TAB PO SCH (11:57)
[2019-07-25] MEDS: ASPIRIN 81 MG ENTERIC TAB PO SCH (11:57)
[2019-07-25] MEDS: OMEPRAZOLE 20 MG CAP PO SCH (11:57)
[2019-07-25] MEDS: MORPHINE 1MG/ML IN 0.9% NACL 100ML IV BAG IV PRN (12:55)
[2019-07-25] MEDS: NS 1,000 ML IV SCH (12:55)
--- NOTE | 2019-07-25 17:09 | IPNPDOC ---
Subjective Date Seen The patient was seen on 07/25/19. Subjective Chief Complaint/HPI Afebrile, BP remains stable. acid reflux controlled with ppi. Objective Physical Examination General Exam: Positive: Cooperative, No Acute Distress Eye Exam: Positive: PERRLA Neck Exam: Positive: Supple Chest Exam: Positive: Clear to auscultation, Normal air movement, Rales; Negative: Rhonchi, Wheezing Heart Exam: Positive: Rate Normal, Normal S1, Normal S2; Negative: Murmurs Abdomen Exam: Positive: Normal bowel sounds, Soft; Negative: Tenderness, Mass, Hernia Skin Exam: Positive: Breakdown (vesicular lesion underneath his axilla with blistering.) Psych Exam: Positive: Mental status NL Assessment /Plan Assessment # left upper extremity AV fistula with complication (wound infection (klebsiella )+ (MSSA) bacteremia) - Management per the vascular surgery service. - POD # 1 for removal of recently revised LUE AV fistula due to exsanguination - Both B.Cxs from 07/21, and 07/22 no growth to date # CKD stage V hemodialysis dependent - inpatient HD mgmt per nephro # Anemia of Chronic kidney disease - on Aranesp with HD, Hgb stable following transfusion # MSSA Bacteremia - IV cefazolin, will likely need 6 wks of IV abx (day # ) - ASTRID after surgery on sunday # Pancytopenia - likely due to acute infection plus vanco and underlying unspecified chronic BM suppression - CBC counts stable following transfusion - platelet counts have improved # GERD - stop zantac - start omeprazole # DVT prophylaxis - SCDs Plan/VTE VTE Prophylaxis Ordered?: Yes VS, I&O, 24H, Fishbone Vital Signs/I&O Vital Signs Date Time Temp Pulse Resp B/P (MAP) Pulse Ox O2 Delivery O2 Flow Rate FiO2 07/25/19 16:00 98.2 84 14 102/48 (66) 99 07/24/19 13:40 2 07/24/19 12:00 Room Air I&O- Last 24 Hours up to 6 AM 07/25/19 06:00 Intake Total 1615 ml Output Total 0 ml Balance 1615 ml Laboratory Data 24H LABS Laboratory Tests 2 07/25/19 04:31: Nucleated Red Blood Cells % (auto) 0.0, Anion Gap 11, Glomerular Filtration Rate 9.6L, Blood Urea Nitrogen 74H, Creatinine 6.33H, Sodium Level 138, Potassium Level 4.1, Chloride Level 103, Carbon Dioxide Level 24, Calcium Level 7.5L, Aspartate Amino Transf (AST/SGOT) 137H, Alanine Aminotransferase (ALT/SGPT) 25, Alkaline Phosphatase 461H, Total Bilirubin 0.6, Total Protein 4.4#L, Albumin 1.6L, Albumin/Globulin Ratio 0.57L CBC/BMP Laboratory Tests 07/25/19 04:31 Red Blood Count 3.28 L, Mean Corpuscular Volume 97.0 H, Mean Corpuscular Hemoglobin 32.0, Mean Corpuscular Hemoglobin Concent 33.0, Red Cell Distribution Width 16.9 H, Calcium Level 7.5 L, Aspartate Amino Transf (AST/SGOT) 137 H, Alanine Aminotransferase (ALT/SGPT) 25, Alkaline Phosphatase 461 H, Total Bilirubin 0.6, Total Protein 4.4 #L, Albumin 1.6 L Microbiology Microbiology 07/22/19 Blood Culture - Preliminary, Resulted No Growth after 72 hours. All specime... 07/21/19 Blood Culture - Preliminary, Resulted No Growth after 72 hours. All specime... 07/16/19 Blood Culture - Final, Complete Staphylococcus Aureus 07/16/19 Blood Culture - Final, Complete Staphylococcus Aureus 07/16/19 Gastrointestinal Tract Panel (PCR) - Final, Complete 07/18/19 Wound Culture - Final, Complete Klebsiella Pneumoniae Staphylococcus Aureus 07/18/19 Anaerobic Culture - Final, Complete 07/18/19 Anaerobic Culture - Final, Complete 07/18/19 Wound Culture - Final, Complete Klebsiella Pneumoniae Staphylococcus Aureus GIOVANNA COVINGTON MD Jul 25, 2019 17:09
[2019-07-25] MEDS: ceFAZolin SOD 2 GM in IV 1 EA IV SCH (20:48)
[2019-07-25] MEDS: PRAVASTATIN 20 MG TAB PO SCH (20:48)
[2019-07-26] VITALS: BP 118/54
[2019-07-26 04:00] VITALS: BP 111/53
[2019-07-26 04:57] LABS: HEMATOCRIT 33.8 % (42.0-52.0); HEMOGLOBIN 10.9 g/dl (13.5-17.5); MEAN CORPUSCULAR HEMOGLOBIN 31.5 pg (27.0-33.0); MEAN CORPUSCULAR HGB CONC 32.2 g/dl (32.0-36.5); MEAN CORPUSCULAR VOLUME 97.7 fl (80.0-96.0); PLATELET COUNT, AUTOMATED 182 10^3/uL (150-450); RED BLOOD COUNT 3.46 10^6/uL (4.30-6.10); WHITE BLOOD COUNT 3.1 10^3/uL (4.0-10.0)
[2019-07-26 05:21] LABS: CALCIUM LEVEL 8.1 MG/DL (8.8-10.2); CREATININE FOR GFR 4.08 MG/DL (0.70-1.30); GLOMERULAR FILTRATION RATE 15.9 (>49); POTASSIUM SERUM 4.1 MEQ/L (3.5-5.1)
[2019-07-26] MEDS: LEVOTHYROXINE 100MCG TABLET (0.1MG) PO SCH (06:11)
[2019-07-26] MEDS: SODIUM CHLORIDE 0.9% INJ 10 ML SYR IV SCH ×2 (06:12→17:26)
--- NOTE | 2019-07-26 08:05 | IPN ---
DATE OF SERVICE: 07/25/2019 SUBJECTIVE: Patient was seen and examined this morning, laying comfortably at his bed with dialysis at bedside. He states that he is feeling relatively well. He has no fevers, chills or night sweats. He continues to admit some tenderness on palpation of his chest but it is improving. He is tolerating dialysis with no problem through his catheter. He denies any lightheadedness, dizziness, nausea, vomiting or diarrhea. He has no complaints this morning. PHYSICAL EXAMINATION: VITAL SIGNS: 98.2, pulse 84, respiration rate 14, blood pressure 102/48 (66), pulse oximetry 99% on 2-3 liters of nasal cannula. GENERAL: This is a very pleasant, 64-year-old male who does not appear in any acute distress, alert and oriented times three. HEENT: Atraumatic, normocephalic. Pupils are equal, round and reactive. Old surgical scars appreciated at the neck with no obvious jugular venous distention (JVD) or lymphadenopathy noted. CHEST: Continues to have slight tenderness at the left chest wall near the axilla. Erythema has improved. Slight induration can be appreciated in the axilla, crepitus as well but is improving. HEART: Normal S1, S2 sounds. Continues to have significant 3/6 systolic ejection murmur heard best at the left upper sternal border with radiation to the pericardium and carotids bilaterally. LUNGS: Clear to auscultation bilaterally. No audible wheezing, rhonchi or rales. ABDOMEN: Soft, nontender with positive bowel sounds in all four quadrants. EXTREMITIES: Lower extremities have 2+ pitting edema. Left upper extremity was examined without dressing. Left open wound noted measuring 10 cm x 5 cm with a depth of 3 cm with dry blood clots appreciated. No purulent discharge noted. Slight foul smell can be noted. NEUROLOGIC: Unable to extend arm, forearm or fingers. Unable to uncurl fingers or spread out fingers on command. Right upper extremity muscle strength 5/5 in all muscle groups in biceps, brachioradialis and interosseous muscles. INTEGUMENTARY: Vesicular lesions appreciated underneath the left axilla with hemorrhagic blisters improving. LABORATORIES: WBC 2.9, hemoglobin 10.5, hematocrit 31.8, platelets 145. Chemistry: Sodium 138, potassium 4.2, chloride 103, carbon dioxide 24, BUN 74, creatinine 6.33, fasting glucose 110, calcium 7.5, AST 137, ALT 25, alkaline phosphatase 461. MICROBIOLOGY: Blood cultures from 07/16/2019 positive for MSSA times two. Repeat blood cultures on 07/21/2019 - 07/22/2019 no growth. BLOOD BANK: A total of 9 packed RBCs have been transfused during this admission. ANTIBIOTICS: Cefazolin 2 grams every 24 hours IV. IMPRESSION: This is a 64-year-old male with a vascular graft infection. Cultures positive for MSSA and Klebsiella pneumoniae as well as Staphylococcus aureus bacteremia. The patient has a well known history of a heart murmur with recent transthoracic echocardiogram (TTE) that did not show any vegetations. It did show significant calcification and aortic stenosis. Because of his MSSA bacteremia, we do recommend getting a transesophageal echocardiogram (ASTRID) to rule out endocarditis, which can be done once the patient is more stable and prior to discharge. For his continued left upper chest wall tenderness and crepitus, CT of the chest done on 07/21/2019 did show a 5.2 subcutaneous soft tissue mass. Would recommend an ultrasound of this lesion to see if any fluid can be drained. The patient does have a history osteomyelitis in the right clavicle many years prior. For his bacteremia, we recommend continuing the cephazolin 2 grams every 24 hours. PLAN: Continue cephazolin 2 grams every 24 hours. Obtain ultrasound of the left chest wall to evaluate for the induration and 5.2 subcutaneous soft tissue mass on the anterolateral left chest wall. Obtain transesophageal echocardiogram to rule out endocarditis. Based on the finding of the transesophageal echocardiogram, we will consider if the patient needs to be on 2 versus 6 weeks of antibiotics.
[2019-07-26 08:19] VITALS: BP 112/53
--- NOTE | 2019-07-26 09:29 | IPN ---
DATE OF SERVICE: SUBJECTIVE: The patient was seen and examined the bedside today morning during hemodialysis procedure. He was tolerating the hemodialysis procedure well. The patient got the right arm peripherally inserted central catheter (PICC) line placement yesterday by vascular surgery. He continues to be on patient controlled analgesia. His pain is very well optimized. There is no more bleeding from the left upper arm arteriovenous (AV) fistula excision site. OBJECTIVE: Vital signs: Temperature is 98.7 degrees Fahrenheit, blood pressure 89/51, pulse is 94, respiratory rate of 14, saturating 98% on room air. Intake and output: There is no urine output recorded. Weight in the bed scale is 81.5 kg. PHYSICAL EXAMINATION: General: The patient is awake, alert, oriented times three, laying in bed, getting hemodialysis done. Head and neck exam: Extraocular muscles intact. Pupils equally round and reactive to light. Mucous membranes are moist. Neck is supple. He has a right internal jugular (IJ) hemodialysis catheter. Cardiovascular: S1, S2, regular rate. No edema of the bilateral lower extremities. Respiratory: Chest is clear to auscultation bilaterally. Bilateral equal air entry. No rales or rhonchi. Abdomen: Soft, positive bowel sounds. Nontender. Musculoskeletal: No clubbing or cyanosis. Right leg is shortened and externally rotated. Right arm has a PICC line. Left arm has a large dressing and swelling is getting better. Central nervous system (GENERAL CLERK): No focal deficit. The patient is awake and alert. LAB REVIEW: CBC showed WBC 2.9, hemoglobin 10.5, platelets of 145. BMP showed sodium 138, potassium 4.1, chloride 103, bicarbonate 24, BUN 74, creatinine is 6.3, albumin is 1.6. CURRENT INPATIENT MEDICATIONS: The patient's medications were all reviewed by me. He continues to be on CYTOTECHNOLOGIST/CYTOLOGY SUPERVISOR analgesia. He continues to be on IV Ancef. No other change in the medications today as compared with yesterday. ASSESSMENT/PLAN: 1. End-stage renal disease. The patient's regular dialysis days are Sunday, , Sunday. However, he is being dialyzed today because he was sick and hypotensive yesterday. If needed he will be put back on his regular schedule tomorrow. 2. Anemia secondary to acute bleeding and end-stage renal disease. The patient's hemoglobin levels are optimal. He has received 9 units of packed red blood cells (PRBC) transfusion so far in the hospita. 3. Left upper arm AV fistula site infection and bleeding. The patient is on IV Ancef. He is being seen by infectious disease as well. AV fistula has been excised. STIVEN
[2019-07-26] MEDS: OMEPRAZOLE 20 MG CAP PO SCH (10:00)
[2019-07-26] MEDS: VITAMIN D 1,000 INTERNATIONAL UNITS TABLET PO SCH (10:00)
[2019-07-26] MEDS: ASPIRIN 81 MG ENTERIC TAB PO SCH (10:00)
[2019-07-26] MEDS: BISACODYL 5 MG TAB PO SCH (10:01)
[2019-07-26] MEDS: MULTIVITAMINS/MINERALS THERAP 1 TAB PO SCH (10:01)
[2019-07-26] MEDS: ASCORBIC ACID 500 MG TAB PO SCH (10:01)
[2019-07-26 12:20] VITALS: BP 110/55
--- NOTE | 2019-07-26 12:27 | IPNPDOC ---
Subjective Date Seen The patient was seen on 07/26/19. Subjective Chief Complaint/HPI Doing well, resting in bed, arm does not hurt as much. Wants to keep reservationist for pain control. General: Denies: Chills, Night Sweats Objective Physical Examination General Exam: Positive: Cooperative, No Acute Distress Eye Exam: Positive: PERRLA, Conjunctiva & lids normal, EOMI, Sclera icteric Neck Exam: Positive: Supple Chest Exam: Positive: Clear to auscultation, Normal air movement, Rales; Negative: Rhonchi, Wheezing Heart Exam: Positive: Rate Normal, Normal S1, Normal S2; Negative: Murmurs Abdomen Exam: Positive: Normal bowel sounds, Soft; Negative: Tenderness, Mass, Hernia Skin Exam: Positive: Breakdown (vesicular lesion underneath his axilla with blistering.) Psych Exam: Positive: Mental status NL Assessment /Plan Assessment # left upper extremity AV fistula with complication (wound infection (klebsiella)+ (MSSA) bacteremia) - Management per the vascular surgery service. - POD # 2 for removal of recently revised LUE AV fistula due to exsanguination - Both B.Cxs from 07/21, and 07/22 no growth to date # CKD stage V hemodialysis dependent - inpatient HD mgmt per nephro # Anemia of Chronic kidney disease - on Aranesp with HD, Hgb stable following transfusion # MSSA Bacteremia - IV cefazolin, will likely need 6 wks of IV abx (day # ) - ASTRID after surgery on sunday # Pancytopenia - likely due to acute infection plus vanco and underlying unspecified chronic BM suppression - CBC counts are stable - platelet counts have improved # GERD - controlled with omeprazole # DVT prophylaxis - SCDs Plan/VTE VTE Prophylaxis Ordered?: Yes VS, I&O, 24H, Fishbone Vital Signs/I&O Vital Signs Date Time Temp Pulse Resp B/P (MAP) Pulse Ox O2 Delivery O2 Flow Rate FiO2 07/26/19 08:19 98.3 85 16 112/53 (72) 100 07/24/19 13:40 2 07/24/19 12:00 Room Air I&O- Last 24 Hours up to 6 AM 07/26/19 06:00 Intake Total 750 ml Output Total 2000 ml Balance -1250 ml Laboratory Data 24H LABS Laboratory Tests 2 07/26/19 04:37: Nucleated Red Blood Cells % (auto) 0.0, Anion Gap 8, Glomerular Filtration Rate 15.9L, Blood Urea Nitrogen 32#H, Creatinine 4.08H, Sodium Level 141, Potassium Level 4.1, Chloride Level 105, Carbon Dioxide Level 28, Calcium Level 8.1L CBC/BMP Laboratory Tests 07/26/19 04:37 Red Blood Count 3.46 L, Mean Corpuscular Volume 97.7 H, Mean Corpuscular Hemoglobin 31.5, Mean Corpuscular Hemoglobin Concent 32.2, Red Cell Distribution Width 16.8 H, Calcium Level 8.1 L Microbiology Microbiology 07/22/19 Blood Culture - Preliminary, Resulted No Growth after 72 hours. All specime... 07/21/19 Blood Culture - Preliminary, Resulted No Growth after 72 hours. All specime... 07/16/19 Blood Culture - Final, Complete Staphylococcus Aureus 07/16/19 Blood Culture - Final, Complete Staphylococcus Aureus 07/16/19 Gastrointestinal Tract Panel (PCR) - Final, Complete 07/18/19 Wound Culture - Final, Complete Klebsiella Pneumoniae Staphylococcus Aureus 07/18/19 Anaerobic Culture - Final, Complete 07/18/19 Anaerobic Culture - Final, Complete 07/18/19 Wound Culture - Final, Complete Klebsiella Pneumoniae Staphylococcus Aureus GIOVANNA COVINGTON MD Jul 26, 2019 12:27
[2019-07-26] MEDS: DAKIN'S 0.25% HALF-STRENGTH SOLN 480 ML TOP SCH ×2 (12:28→23:00)
[2019-07-26] MEDS: MORPHINE 1MG/ML IN 0.9% NACL 100ML IV BAG IV PRN (12:55)
[2019-07-26] MEDS: NS 1,000 ML IV SCH (15:00)
[2019-07-26 15:26] VITALS: BP 129/67
[2019-07-26] MEDS: PRAVASTATIN 20 MG TAB PO SCH (22:33)
[2019-07-26] MEDS: ceFAZolin SOD 2 GM in IV 1 EA IV SCH (22:34)
[2019-07-27] MEDS: SODIUM CHLORIDE 0.9% INJ 10 ML SYR IV PRN (00:04)
[2019-07-27 06:00] VITALS: BP 97/52
[2019-07-27] MEDS: LEVOTHYROXINE 100MCG TABLET (0.1MG) PO SCH (06:41)
[2019-07-27] MEDS: SODIUM CHLORIDE 0.9% INJ 10 ML SYR IV SCH ×2 (06:41→17:46)
[2019-07-27] MEDS: MULTIVITAMINS/MINERALS THERAP 1 TAB PO SCH (09:00)
--- NOTE | 2019-07-27 09:17 | IPN ---
DATE OF VISIT: 07/26/2019 Mr. Chen is seen this morning in intensive care unit on his bedside. He underwent hemodialysis yesterday, which he tolerated well. This morning he denies any fever, chills, nausea, vomiting, dyspnea or chest pain. He is tolerating his Nepro feeds very well. On physical exam, temperature 98.3 degrees Fahrenheit, heart rate 85 per minute and respiratory rate 16 per minute. Blood pressure 112/53 mmHg and oxygen saturation 100% on room air. His head is atraumatic. 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 All his old surgical incisions on the neck and head area are well healed. He has a PermaCath in right internal jugular vein without any signs of infection. Heart sounds are regular and lungs clear to auscultation. Abdomen soft and nontender and bowel sounds are normal. Extremities without any cyanosis or clubbing. Left upper arm has a dressing at the surgical site where his infected arteriovenous (AV) fistula was removed and left arm is swollen and erythematous. Left foot is wrapped in dressing. Neurologically he is awake, alert and oriented times three. 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 Today's labs show WBC count 3.1, hemoglobin 10.9 and hematocrit 33.8. Platelets 182. Sodium 141, potassium 4.1, CO2 28, BUN 32 and creatinine 4.08. His calcium level is 8.1. PROBLEMS: 1. End-stage renal disease. Patient was dialyzed yesterday and his next dialysis will be scheduled for Sunday. At this point, there is no need for dialysis today. His volume status is reasonably well-compensated and electrolytes are within normal range. 2. Acute blood loss anemia. Patient had significant bleeding from his AV fistula and has received a total of 9 units of packed red blood cells (RBCs) during this admission. At this point, his hematocrit is stable and no intervention is indicated. 3. Sepsis with Staphylococcus aureus and Klebsiella from his left arm wound. Patient had staph aureus bacteremia and wound culture positive for staph aureus and Klebsiella. His infected AV fistula has been removed and he is currently afebrile. He remains on cephazolin at this time. 4. Hypotension. He did have hypotension related to sepsis, which has now improved and at this point no intervention is indicated.
[2019-07-27] MEDS: VITAMIN D 1,000 INTERNATIONAL UNITS TABLET PO SCH (09:50)
[2019-07-27] MEDS: ASCORBIC ACID 500 MG TAB PO SCH (09:50)
[2019-07-27] MEDS: OMEPRAZOLE 20 MG CAP PO SCH (09:50)
[2019-07-27] MEDS: ASPIRIN 81 MG ENTERIC TAB PO SCH (09:50)
[2019-07-27] MEDS: DAKIN'S 0.25% HALF-STRENGTH SOLN 480 ML TOP SCH ×2 (09:51→21:00)
[2019-07-27] MEDS: BISACODYL 5 MG TAB PO SCH (09:51)
--- NOTE | 2019-07-27 10:14 | IPNPDOC ---
Subjective Date Seen The patient was seen on 07/27/19. Subjective Chief Complaint/HPI Resting in bed, no complaints. afebrile Objective Physical Examination General Exam: Positive: Cooperative, No Acute Distress Eye Exam: Positive: PERRLA, Conjunctiva & lids normal, EOMI, Sclera icteric Neck Exam: Positive: Supple Chest Exam: Positive: Clear to auscultation, Normal air movement, Rales; Negative: Rhonchi, Wheezing Heart Exam: Positive: Rate Normal, Normal S1, Normal S2; Negative: Murmurs Abdomen Exam: Positive: Normal bowel sounds, Soft; Negative: Tenderness, Mass, Hernia Skin Exam: Positive: Breakdown (vesicular lesion underneath his axilla with blistering.) Psych Exam: Positive: Mental status NL Assessment /Plan Assessment # left upper extremity AV fistula with complication (wound infection (klebsiella)+ (MSSA) bacteremia) - Management per the vascular surgery service. - POD # 3 for removal of recently revised LUE AV fistula due to exsanguination - Both B.Cxs from 07/21, and 07/22 no growth to date # CKD stage V hemodialysis dependent - inpatient HD mgmt per nephro # Anemia of Chronic kidney disease - on Aranesp with HD, Hgb stable following transfusion # MSSA Bacteremia - IV cefazolin, will likely need 4-6 wks of IV abx (day # 6/?) - ASTRID prior to discharge # Pancytopenia - likely due to acute infection plus vanco and underlying unspecified chronic BM suppression - CBC counts are stable - platelet counts have improved # GERD - controlled with omeprazole # DVT prophylaxis - SCDs Plan/VTE VTE Prophylaxis Ordered?: Yes VS, I&O, 24H, Fishbone Vital Signs/I&O Vital Signs Date Time Temp Pulse Resp B/P (MAP) Pulse Ox O2 Delivery O2 Flow Rate FiO2 07/27/19 06:00 98.7 80 16 97/52 (67) 97 07/24/19 13:40 2 07/24/19 12:00 Room Air I&O- Last 24 Hours up to 6 AM 07/27/19 06:00 Intake Total 915 ml Output Total 0 ml Balance 915 ml Laboratory Data Microbiology Microbiology 07/22/19 Blood Culture - Final, Complete NO GROWTH AFTER 5 DAYS 07/21/19 Blood Culture - Final, Complete NO GROWTH AFTER 5 DAYS 07/18/19 Wound Culture - Final, Complete Klebsiella Pneumoniae Staphylococcus Aureus 07/18/19 Anaerobic Culture - Final, Complete 07/18/19 Anaerobic Culture - Final, Complete 07/18/19 Wound Culture - Final, Complete Klebsiella Pneumoniae Staphylococcus Aureus GIOVANNA COVINGTON MD Jul 27, 2019 10:14
[2019-07-27] MEDS: MORPHINE 1MG/ML IN 0.9% NACL 100ML IV BAG IV PRN (17:29)
[2019-07-27] MEDS: NS 1,000 ML IV SCH (20:30)
[2019-07-27] MEDS: PRAVASTATIN 20 MG TAB PO SCH (21:08)
[2019-07-27] MEDS: ceFAZolin SOD 2 GM in IV 1 EA IV SCH (21:08)
[2019-07-27 22:00] VITALS: BP 101/46
[2019-07-28 06:00] VITALS: BP 96/47
[2019-07-28] MEDS: LEVOTHYROXINE 100MCG TABLET (0.1MG) PO SCH (06:02)
[2019-07-28] MEDS: SODIUM CHLORIDE 0.9% INJ 10 ML SYR IV SCH ×2 (06:02→18:11)
[2019-07-28 06:30] LABS: HEMATOCRIT 34.2 % (42.0-52.0); HEMOGLOBIN 10.9 g/dl (13.5-17.5); MEAN CORPUSCULAR HEMOGLOBIN 31.1 pg (27.0-33.0); MEAN CORPUSCULAR HGB CONC 31.9 g/dl (32.0-36.5); MEAN CORPUSCULAR VOLUME 97.7 fl (80.0-96.0); PLATELET COUNT, AUTOMATED 213 10^3/uL (150-450); WHITE BLOOD COUNT 3.9 10^3/uL (4.0-10.0)
[2019-07-28 07:04] LABS: ALBUMIN 1.8 GM/DL (3.2-5.2); CALCIUM LEVEL 8.1 MG/DL (8.8-10.2); CREATININE FOR GFR 6.68 MG/DL (0.70-1.30); PHOSPHORUS LEVEL 3.9 MG/DL (2.5-4.9); POTASSIUM SERUM 4.6 MEQ/L (3.5-5.1)
[2019-07-28] MEDS: DAKIN'S 0.25% HALF-STRENGTH SOLN 480 ML TOP SCH ×2 (07:45→21:11)
[2019-07-28] MEDS: MULTIVITAMINS/MINERALS THERAP 1 TAB PO SCH (09:00)
[2019-07-28] MEDS: ASPIRIN 81 MG ENTERIC TAB PO SCH (13:14)
[2019-07-28] MEDS: ASCORBIC ACID 500 MG TAB PO SCH (13:14)
[2019-07-28] MEDS: OMEPRAZOLE 20 MG CAP PO SCH (13:14)
[2019-07-28] MEDS: BISACODYL 5 MG TAB PO SCH ×2 (13:14→13:20)
[2019-07-28] MEDS: VITAMIN D 1,000 INTERNATIONAL UNITS TABLET PO SCH (13:14)
[2019-07-28] MEDS: NS 1,000 ML IV SCH ×2 (13:15→18:18)
[2019-07-28 14:00] VITALS: BP 124/59
[2019-07-28 14:26] LABS: C REACTIVE PROTEIN QUANTITATIV 4.65 MG/DL (0.00-0.30)
--- NOTE | 2019-07-28 17:08 | IPNPDOC ---
Subjective Date Seen The patient was seen on 07/28/19. Subjective Chief Complaint/HPI Sy is w/o any acute complaints, awaiting surgery tomorrow for LUE wound I+D and wound vac placement. Objective Physical Examination General Exam: Positive: Cooperative, No Acute Distress Eye Exam: Positive: PERRLA, Conjunctiva & lids normal, EOMI, Sclera icteric Neck Exam: Positive: Supple Chest Exam: Positive: Clear to auscultation, Normal air movement, Rales; Negative: Rhonchi, Wheezing Heart Exam: Positive: Rate Normal, Normal S1, Normal S2; Negative: Murmurs Abdomen Exam: Positive: Normal bowel sounds, Soft; Negative: Tenderness, Mass, Hernia Skin Exam: Positive: Breakdown (vesicular lesion underneath his axilla with blistering.) Neuro Exam: Positive: Other (LUE paralysis) Psych Exam: Positive: Mental status NL Assessment /Plan Assessment # left upper extremity AV fistula with complication (wound infection (klebsiella)+ (MSSA) bacteremia) - Management per the vascular surgery service. - POD # 5 for removal of recently revised LUE AV fistula due to exsanguination, s/p 9 units PRBCs this hospitalization - Both B.Cxs from 07/21, and 07/22 no growth to date - order MRI brachial plexus to r/o nerve injury to left arm - D/w Dr. Peña # CKD stage V hemodialysis dependent - inpatient HD mgmt per nephro # Anemia of Chronic kidney disease - on Aranesp with HD, Hgb stable following transfusion # MSSA Bacteremia - IV cefazolin, will likely need 2 vs. 6 wks of IV abx (day # 7/?) - Needs ASTRID prior to discharge # Pancytopenia - likely due to acute infection plus vanco and underlying unspecified chronic BM suppression - CBC counts are stable - platelet counts have improved # GERD - controlled with omeprazole # DVT prophylaxis - SCDs Plan/VTE VTE Prophylaxis Ordered?: Yes VS, I&O, 24H, Fishbone Vital Signs/I&O Vital Signs Date Time Temp Pulse Resp B/P (MAP) Pulse Ox O2 Delivery O2 Flow Rate FiO2 07/28/19 14:00 97.7 114 16 124/59 (80) 99 07/24/19 13:40 2 07/24/19 12:00 Room Air I&O- Last 24 Hours up to 6 AM 07/28/19 06:00 Intake Total 1565 ml Output Total 0 ml Balance 1565 ml Laboratory Data 24H LABS Laboratory Tests 2 07/28/19 06:10: Nucleated Red Blood Cells % (auto) 0.0, Blood Urea Nitrogen 63#H, Creatinine 6.68#H, Sodium Level 137, Potassium Level 4.6, Chloride Level 101, Carbon Dioxide Level 24, Anion Gap 12, Glomerular Filtration Rate 9.0L, Calcium Level 8.1L, Phosphorus Level 3.9, C-Reactive Protein, Quantitative 4.65H, Albumin 1.8L CBC/BMP Laboratory Tests 07/28/19 06:10 Red Blood Count 3.50 L, Mean Corpuscular Volume 97.7 H, Mean Corpuscular Hemoglobin 31.1, Mean Corpuscular Hemoglobin Concent 31.9 L, Red Cell Distribution Width 16.5 H, Anion Gap 12 Microbiology Microbiology 07/22/19 Blood Culture - Final, Complete NO GROWTH AFTER 5 DAYS 07/21/19 Blood Culture - Final, Complete NO GROWTH AFTER 5 DAYS 07/18/19 Wound Culture - Final, Complete Klebsiella Pneumoniae Staphylococcus Aureus 07/18/19 Anaerobic Culture - Final, Complete 07/18/19 Anaerobic Culture - Final, Complete 07/18/19 Wound Culture - Final, Complete Klebsiella Pneumoniae Staphylococcus Aureus GIOVANNA COVINGTON MD Jul 28, 2019 17:08
[2019-07-28] MEDS: MORPHINE 1MG/ML IN 0.9% NACL 100ML IV BAG IV PRN (18:19)
--- NOTE | 2019-07-28 19:14 | IPN ---
DATE: 07/27/2019 Mr. Chen is seen this morning on his bedside. He is feeling well though his left arm is still swollen and left upper arm wound is wrapped in dressing. Patient is looking forward to getting wound VAC applied and possibly go home next week. He was dialyzed on Sunday and will be due for dialysis tomorrow. Patient denies any dyspnea, chest pain, fever or chills. His wound cultures were positive for Klebsiella and Staphylococcus aureus, while his blood culture was positive for Staphylococcus aureus and he is currently on cephazolin. Most recent blood cultures drawn on 07/21/2019 and 07/22/2019 are so far negative. PHYSICAL EXAMINATION: Temperature 98.7 degrees Fahrenheit, heart rate 80 per minute and respiratory rate 16 per minute. Blood pressure 97/52 mmHg and oxygen saturation 97% on room air. His head is atraumatic. There is no jugular venous distention (JVD). Perma-Cath is present on right upper chest. His heart sounds are regular. Lungs clear to auscultation. Abdomen soft and nontender and bowel sounds normal. Extremities without any cyanosis or clubbing. Left arm is markedly swollen. Left upper arm wound is covered with dressing. Neurologically he is awake, alert and oriented times three. Patient did not have any new labs done today. PROBLEMS: 1. End-stage renal disease. Patient was dialyzed on Sunday and we will plan to dialyze him again tomorrow. His volume status is well-compensated and electrolytes were within normal range yesterday. 2. Acute blood loss anemia. Patient had significant blood loss from his left arm arteriovenous (AV) fistula and has been now stable since his fistula has been removed. His complete blood count (CBC) will be checked tomorrow. 3. Staphylococcus aureus bacteremia and infected AV fistula left arm. Patient remains on cephazolin and currently afebrile with most recent blood cultures negative. There is a plan for transesophageal echocardiogram next week. 4. Hypotension. Blood pressure has improved now and patient is asymptomatic. We will continue to monitor closely.
[2019-07-28] MEDS: PRAVASTATIN 20 MG TAB PO SCH (21:10)
[2019-07-28] MEDS: ceFAZolin SOD 2 GM in IV 1 EA IV SCH (21:10)
[2019-07-28 22:00] VITALS: BP 114/87
[2019-07-28] MEDS: SODIUM CHLORIDE 0.9% INJ 10 ML SYR IV PRN (22:07)
[2019-07-29] VITALS (7 sets, daily range): BP systolic 94–116; BP diastolic 49–65
[2019-07-29] MEDS: LEVOTHYROXINE 100MCG TABLET (0.1MG) PO SCH (05:44)
[2019-07-29] MEDS: SODIUM CHLORIDE 0.9% INJ 10 ML SYR IV SCH ×2 (05:44→18:04)
--- NOTE | 2019-07-29 07:13 | IPN ---
DATE OF VISIT: 07/28/2019 Mr. Chen is seen this morning on his bedside. He is being dialyzed. He is feeling well and denies any new complaints. His left arm wound is covered with a dressing. The patient has no fever, chills, dyspnea or chest pain. On physical examination, temperature 98 degrees Fahrenheit, heart rate 80 per minute and respiratory rate 16 per minute. Blood pressure 96/47 mmHg and oxygen saturation 95% on room air. His neck veins are not abnormally distended. Perma-Cath in right internal jugular vein is intact. Heart sounds are regular and lungs clear to auscultation. Abdomen: Soft and nontender and bowel sounds are normal. Extremities: Without any cyanosis or clubbing. Left forearm swelling has improved. Left upper arm swelling is still present. The wound is covered with a dressing. Neurologically he is awake, alert and oriented times three. Today's labs show WBC count 3.9, hemoglobin 10.9 and hematocrit 34.2. Platelets 213. Sodium 137, potassium 4.6, CO2 24, BUN 63 and creatinine 6.68. Calcium is 8.1 and phosphorus 3.9. PROBLEMS: 1. End-stage renal disease. The patient is currently being dialyzed and he is tolerating dialysis treatment very well. We are trying to remove 2 liters of fluid. His electrolytes are within normal range. 2. Anemia. His anemia has been stable since last transfusion. No intervention is needed at this point. 3. Staphylococcus aureus bacteremia and infected wound left arm. The patient remains afebrile with negative blood cultures from July 21 and . He continues with cefazolin. Dr. Vela plans to debride his wound and apply wound Vac dressing tomorrow.
--- NOTE | 2019-07-29 08:07 | IPN ---
DATE: 07/28/2019 Mr. Chen continues to complain of some chest wall pain on the left side and difficulty with wrist flexion and shoulder movement. He has had no fever or chills. PHYSICAL EXAMINATION: Temperature is 97.7, pulse 114, respirations 16, blood pressure 124/59, O2 sat 99% on room air. HEART: Normal S1, S2 with a holosystolic ejection murmur 3/6. LUNGS: Clear. No wheezes or rhonchi. ABDOMEN: Soft, nontender. No visceromegaly. EXTREMITIES: Left arm is swollen. The patient is able to flex his finger but there is no extension of the wrist or the hand. He has an open wound in the left biceps measuring about 15 cm x 4 cm width. This is packed. Chest wall redness and some tenderness which has decreased. IMPRESSION: Left upper extremity arteriovenous fistula infection with Klebsiella and methicillin sensitive Staphylococcus aureus (MSSA) complicated by significant bleeding. The patient had ligation of the AV fistula and received 9 units of packed red blood cells. Concern for more brachial plexus injury since the patient has limited range of motion of the wrist and fingers. 2. Methicillin sensitive Staphylococcus aureus (MSSA) bacteremia on IV cefazolin 2 grams nightly. The patient needs a transesophageal echocardiogram (TE) to rule out endocarditis. If TE is negative then the patient will need 2 weeks of IV antibiotic from negative culture. If TE is positive, he will need 6 weeks of IV antibiotics. 3. Chest wall pain probably related to surgery and possibility of extension of Staphylococcus aureus infection to chest wall. Imaging study done on 07/21/[address] had shown a 5.2 cm subcutaneous soft tissue mass in the anterolateral aspect of the chest, which needs to be followed up with ultrasound or CT to make sure it has resolved. PLAN: Continue IV cefazolin. Transesophageal echocardiogram needs to be scheduled to rule out endocarditis. Continue to monitor CBC, CRP, sed rate. Obtain a imaging of the brachial plexus to rule out nerve injury from surgery. LABORATORY DATA: CRP 4.65 down from 10.4, sodium 137, potassium 4.6, chloride 101, bicarb 24, BUN 63, creatinine 6.68, glucose 80, calcium 8.1, phosphorus 3.9, albumin 1.8 white count 3.9, hemoglobin 10.9, hematocrit 34.2, platelets 213, blood culture negative on 07/21/2019.
[2019-07-29] MEDS: BISACODYL 5 MG TAB PO SCH (09:00)
[2019-07-29] MEDS: OMEPRAZOLE 20 MG CAP PO SCH (09:00)
[2019-07-29] MEDS: DAKIN'S 0.25% HALF-STRENGTH SOLN 480 ML TOP SCH ×2 (09:00→22:04)
[2019-07-29] MEDS: MULTIVITAMINS/MINERALS THERAP 1 TAB PO SCH (09:00)
[2019-07-29] MEDS: ASCORBIC ACID 500 MG TAB PO SCH (09:00)
[2019-07-29] MEDS: VITAMIN D 1,000 INTERNATIONAL UNITS TABLET PO SCH (09:00)
[2019-07-29] MEDS: ASPIRIN 81 MG ENTERIC TAB PO SCH (09:41)
[2019-07-29] MEDS ORDERED: ONDANSETRON 4MG/2ML VIAL (J2405) As Ordered ONE (14:03)
[2019-07-29] MEDS ORDERED: PROPOFOL 200 MG/20 ML VIAL As Ordered ONE (14:03)
[2019-07-29] MEDS ORDERED: LIDOCAINE 2% INJ 100 MG/5 ML SDV (FOR ANES.) As Ordered ONE (14:03)
[2019-07-29] MEDS ORDERED: fentaNYL 100 MCG/2 ML INJECTION (J3010) As Ordered ONE (14:03)
[2019-07-29] MEDS ORDERED: dexameTHASONE 4 MG/ML 1ML VIAL (J1100) As Ordered ONE (14:03)
[2019-07-29] MEDS ORDERED: MIDAZOLAM INJ 2 MG/2 ML VIAL (J2250) As Ordered ONE (14:03)
[2019-07-29] MEDS: NS 1,000 ML IV SCH (14:37)
[2019-07-29] MEDS ORDERED: ONDANSETRON 4MG/2ML VIAL (J2405) IV PRN (15:15)
[2019-07-29] MEDS ORDERED: NS 1,000 ML IV SCH (15:15)
[2019-07-29] MEDS: MORPHINE 1MG/ML IN 0.9% NACL 100ML IV BAG IV PRN (18:04)
--- NOTE | 2019-07-29 18:45 | IPN ---
DATE: 07/29/2019 Mr. Chen is seen this morning on his bedside. He is sitting in the chair getting ready for a bath. He denies any dyspnea, chest pain, fever or chills. His left arm wound is still wrapped in dressing, and he reports that he is scheduled for operating room (OR) today for debridement later this afternoon and then hope to have wound VAC dressing. The patient was dialyzed yesterday, and he does not wish to be dialyzed today. He is regularly dialyzed on Sunday, and Sunday schedule, and we would like to get him back on his regular schedule before discharge. However, the patient did not want dialysis today. PHYSICAL EXAMINATION: Temperature 98 degrees Fahrenheit, heart rate 82 per minute and respiratory rate 18 per minute. Blood pressure 94/54 mmHg and oxygen saturation 98% on room air. His head is atraumatic. Neck is supple and jugular venous distention (JVD) is not elevated. Right upper chest Perma-Cath is present. Heart sounds are regular and lungs clear to auscultation. Abdomen: Soft and nontender and bowel sounds are normal. Extremities: Without any cyanosis or clubbing. Left upper arm wound is wrapped in dressing. Neurologically, he is awake, alert and oriented times three. The patient did not have any new labs done today. PROBLEMS: 1. End-stage renal disease. The patient was dialyzed on Sunday as he declined dialysis on Sunday and has been on Sunday, Sunday and Sunday schedule for now while his outpatient schedule is Sunday, and Sunday. I offered him dialysis today again; however he declined it and would like to wait until tomorrow. 2. Staphylococcus aureus bacteremia and left arm infected arteriovenous (AV) fistula. He had his infected fistula removed and is going to have debridement done today followed by wound VAC dressing applied. He is waiting for a transesophageal echocardiogram to rule out endocarditis. At present, he remains on cefazolin and is currently afebrile. 3. Acute blood loss anemia. His anemia has improved and stable and does not need any intervention at present.
--- NOTE | 2019-07-29 19:35 | IPNPDOC ---
Text Note Date of Service The patient was seen on 07/29/19. NOTE Subjective: No acute complaints this morning, awaiting surgery today for debridement and wound vac placement Had an episode of NSVT this morning, asymptomatic Objective Physical Examination General Exam: No Acute Distress, sitting up in chair, pleasant Eye Exam: PERRLA, EOMI, Sclera anicteric Neck Exam: Supple Chest Exam: trace bibasilar crackles, otherwise CTAB Heart Exam: Regular rate and rhythm at the time of exam Abdomen Exam: Normoactive bowel sounds, soft, no tenderness Ext: LUE edematous with dressing over it. Skin Exam: vesicular lesion underneath his axilla with blistering Neuro Exam: LUE paralysis, otherwise moving all other extremities, cranial nerves 2-12 within normal limits Psych Exam: Positive: Mental status NL, AOx3 Assessment # left upper extremity AV fistula with complication (wound infection (klebsiella)+ (MSSA) bacteremia) - Management per the vascular surgery service. - POD # 6 for removal of recently revised LUE AV fistula due to exsanguination, s/p 9 units PRBCs this hospitalization - Both B.Cxs from 07/21, and 07/22 no growth to date - will discuss the option of MRI brachial plexus to r/o nerve injury to left arm after infection is well controlled - Dr. Peña onboard, MSSA + klebs, adequately covered by ancef, and will need ASTRID to r/o valve veg with plan for 2weeks from date of last +BCx if no endocarditis # CKD stage V hemodialysis dependent - inpatient HD mgmt per nephro # Anemia of Chronic kidney disease - on Aranesp with HD, Hgb stable following transfusion # MSSA Bacteremia - IV cefazolin, will likely need 2 IV abx (day # 8) - Needs ASTRID prior to discharge to r/o endorcarditis at which point we will treat with [address] Peña as stated above. # Pancytopenia - likely due to acute infection plus vanco and underlying unspecified chronic BM suppression - CBC counts are stable - platelet counts have improved # GERD - controlled with omeprazole # DVT prophylaxis - SCDs Plan/VTE VTE Prophylaxis Ordered?: Yes VS,Fishbone, I+O VS, Fishbone, I+O Vital Signs Date Time Temp Pulse Resp B/P (MAP) Pulse Ox O2 Delivery O2 Flow Rate FiO2 07/29/19 18:40 98.0 93 18 113/55 (74) 95 07/24/19 13:40 2 07/24/19 12:00 Room Air I&O- Last 24 Hours up to 6 AM 07/29/19 06:00 Intake Total 680 ml Output Total 1500 ml Balance -820 ml JOANNE SÁNCHEZ MD Jul 29, 2019 19:35
[2019-07-29] MEDS: PRAVASTATIN 20 MG TAB PO SCH (22:18)
[2019-07-29] MEDS: ceFAZolin SOD 2 GM in IV 1 EA IV SCH (22:19)
[2019-07-30 00:40] VITALS: BP 111/55
[2019-07-30] MEDS: SODIUM CHLORIDE 0.9% INJ 10 ML SYR IV PRN ×3 (00:42→23:08)
[2019-07-30 04:40] VITALS: BP 108/60
[2019-07-30] MEDS: LEVOTHYROXINE 100MCG TABLET (0.1MG) PO SCH (05:56)
[2019-07-30] MEDS: SODIUM CHLORIDE 0.9% INJ 10 ML SYR IV SCH ×2 (05:56→18:47)
--- NOTE | 2019-07-30 06:11 | ECGEPIP ---
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
[2019-07-30 07:15] LABS: HEMATOCRIT 30.1 % (42.0-52.0); HEMOGLOBIN 9.5 g/dl (13.5-17.5); MEAN CORPUSCULAR HEMOGLOBIN 31.5 pg (27.0-33.0); MEAN CORPUSCULAR HGB CONC 31.6 g/dl (32.0-36.5); MEAN CORPUSCULAR VOLUME 99.7 fl (80.0-96.0); PLATELET COUNT, AUTOMATED 209 10^3/uL (150-450); RED BLOOD COUNT 3.02 10^6/uL (4.30-6.10); WHITE BLOOD COUNT 4.3 10^3/uL (4.0-10.0)
[2019-07-30 07:42] LABS: CALCIUM LEVEL 8.1 MG/DL (8.8-10.2); CREATININE FOR GFR 5.64 MG/DL (0.70-1.30); GLOMERULAR FILTRATION RATE 10.9 (>49); MAGNESIUM LEVEL 2.4 MG/DL (1.8-2.4); POTASSIUM SERUM 4.4 MEQ/L (3.5-5.1)
[2019-07-30] MEDS ORDERED: ISOVUE-370 76% 100ML VIAL (Q9967) As Ordered ONE (08:04)
[2019-07-30] MEDS: OMEPRAZOLE 20 MG CAP PO SCH (09:00)
[2019-07-30] MEDS: DAKIN'S 0.25% HALF-STRENGTH SOLN 480 ML TOP SCH ×2 (09:00→20:54)
[2019-07-30] MEDS: MULTIVITAMINS/MINERALS THERAP 1 TAB PO SCH (09:00)
--- NOTE | 2019-07-30 09:20 | REP ---
CT of the chest with IV contrast: Comparison is 07/21/2019. The skin cesario medially in the left upper extremity have been removed. The subcutaneous emphysema extending from the skin cesario into the left axilla and across the anterior left chest wall has significantly decreased. The soft tissue edema accompanying the subcutaneous emphysema has decreased. The mass in the anterolateral left chest wall has slightly increased in size, today measuring 6.4 x 4.2 cm. This previously measured 5.2 x 4.2 cm. The borderline enlarged mediastinal nodes and left axillary lymph nodes are unchanged. Chronic mosaic pattern in the lung apices is unchanged. There are probable splenomegaly, unchanged. Electronically Signed by Tim Montilla MD 07/30/2019 09:12 A
[2019-07-30] MEDS: ASCORBIC ACID 500 MG TAB PO SCH (13:16)
[2019-07-30] MEDS: VITAMIN D 1,000 INTERNATIONAL UNITS TABLET PO SCH (13:16)
[2019-07-30] MEDS: BISACODYL 5 MG TAB PO SCH (13:17)
[2019-07-30] MEDS: ASPIRIN 81 MG ENTERIC TAB PO SCH (13:17)
[2019-07-30] MEDS: NS 1,000 ML IV SCH (14:59)
--- NOTE | 2019-07-30 15:08 | IPNPDOC ---
Text Note Date of Service The patient was seen on 07/30/19. NOTE Subjective: Tired, otherwise no complaints Objective Physical Examination General Exam: No Acute Distress Eye Exam: PERRLA, EOMI, Sclera anicteric Neck Exam: Supple Chest Exam: trace scattered bibasilar crackles, otherwise clear, chest wall with redness and tender Heart Exam: Regular rate and rhythm, holosystolic murmur loudest at apex Abdomen Exam: Normoactive bowel sounds, soft, no tenderness Ext: LUE wound covered with wound vac Skin Exam: vesicular lesion underneath his axilla with blistering, also with chest wall erythema Neuro Exam: LUE paralysis, otherwise moving all other extremities, cranial nerves 2-12 within normal limits Psych Exam: Positive: Mental status NL, AOx3 Labs: reviewed Imagin07/30/2019: CT chest with IV contrast: The skin cesario medially in the left upper extremity have been removed. The subcutaneous emphysema extending from the skin cesario into the left axilla and across the anterior left chest wall has significantly decreased. The soft tissue edema accompanying the subcutaneous emphysema has decreased. The mass in the anterolateral left chest wall has slightly increased in size, today measuring 6.4 x 4.2 cm. This previously measured 5.2 x 4.2 cm. The borderline enlarged mediastinal nodes and left axillary lymph nodes are unchanged. Chronic mosaic pattern in the lung apices is unchanged. There are probable splenomegaly, unchanged. Assessment # left upper extremity AV fistula with complication (wound infection (klebsiella)+ (MSSA) bacteremia) - Management per the vascular surgery service. - POD # 7 for removal of recently revised LUE AV fistula due to exsanguination, s/p 9 units PRBCs this hospitalization - POD # 1 s/p LUE debridement - Both B.Cxs from 07/21, and 07/22 no growth to date - will discuss the option of MRI brachial plexus to r/o nerve injury to left arm after infection is well controlled - Dr. Peña onboard, MSSA + klebs, adequately covered by anc, and will need ASTRID to r/o valve veg with plan for 2weeks from date of last +BCx if no endocarditis Chest wall mass and subcutaneous emphysema: -Had follow up chest CT given the recent subcutaneous emphysema and chest wall collection/abscess --> while emphysema and surrounding inflammation has improved. anterolateral left chest mass has grown in size and is definitively described as solid in nature with no evidence of a fluid collection on speaking with radiology --> called IR and will order for biopsy of the mass. -In the mean time will continue ancef # CKD stage V hemodialysis dependent - inpatient HD mgmt per nephro # Anemia of Chronic kidney disease - on Aranesp with HD, Hgb stable following transfusion # MSSA Bacteremia - IV cefazoli (day # 9) - Needs ASTRID prior to discharge to r/o endorcarditis at which point we will treat with [address] Peña as stated above. # Pancytopenia - likely due to acute infection plus vanco and underlying unspecified chronic BM suppression - CBC counts are stable - platelet counts have improved # GERD - controlled with omeprazole # DVT prophylaxis - SCDs Plan/VTE VTE Prophylaxis Ordered?: Yes VS,Fishbone, I+O VS, Fishbone, I+O Laboratory Tests 07/30/19 07:06 Red Blood Count 3.02 L, Mean Corpuscular Volume 99.7 H, Mean Corpuscular Hemoglobin 31.5, Mean Corpuscular Hemoglobin Concent 31.6 L, Red Cell Distribution Width 16.1 H, Calcium Level 8.1 L Vital Signs Date Time Temp Pulse Resp B/P (MAP) Pulse Ox O2 Delivery O2 Flow Rate FiO2 07/30/19 04:40 97.9 16 17 108/60 (76) 99 07/24/19 13:40 2 07/24/19 12:00 Room Air I&O- Last 24 Hours up to 6 AM 07/30/19 06:00 Intake Total 2320 ml Balance 2320 ml JOANNE SÁNCHEZ MD Jul 30, 2019 15:08
[2019-07-30] MEDS ORDERED: LIDOCAINE 1% MDV 20ML VIAL As Ordered ONE (16:22)
[2019-07-30 17:37] VITALS: BP 94/46
--- NOTE | 2019-07-30 17:58 | IPN ---
DATE: 07/30/2019 Mr. Chen is seen this morning during hemodialysis. He underwent debridement of his left arm wound and now there is significant bloody drainage in the container. 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 PHYSICAL EXAMINATION: Temperature 98 degrees Fahrenheit, heart rate 68 per minute, respiratory rate 18 per minute, blood pressure 108/60 mm of mercury, and oxygen saturation 99% on room air. His neck veins are not abnormally distended. Head is atraumatic. Trachea is midline, and there is no thyroid enlargement. Infected thyroid has been removed. Heart sounds regular and lungs clear to auscultation. Abdomen soft and nontender, and bowel sounds normal. Extremities without any cyanosis or clubbing. Left upper arm wound has a wound vacuum-assisted closure (VAC) dressing. Today's labs show WBC count 4.3, hemoglobin 9.5, hematocrit 30, platelets 209. Sodium 138, potassium 4.4, CO2 of 26, BUN 51, and creatinine 5.64. Glucose 135 and calcium 8.1. He had a CT scan of chest done with intravenous (IV) contrast this morning, which showed the mass in the anterolateral left chest wall, which is slightly increased. He also has some borderline enlarged mediastinal lymph nodes and axillary lymph nodes which are unchanged. PROBLEMS: 1. End-stage renal disease. The patient is being dialyzed this morning, and he is tolerating dialysis very well. We are removing about 2.5 liters of fluid. 2. Anemia. He had acute blood loss anemia and has some blood loss again due to debridement yesterday and wound VAC dressing. His anemia slightly worsened, and we will continue with Aranesp once a week. No emergent indication for a transfusion at this point. 3. Left chest wall mass. We will discuss with Dr. Vela and see if he needs any surgical intervention. 4. Staphylococcus aureus bacteremia and infected arteriovenous (AV) fistula, left arm. The patient had his AV fistula repair removed and remains on intravenous cephazolin for Staphylococcus aureus bacteremia. He is currently afebrile and waiting for a transesophageal echocardiogram to rule out endocarditis.
[2019-07-30] MEDS: PRAVASTATIN 20 MG TAB PO SCH (21:25)
[2019-07-30] MEDS: ceFAZolin SOD 2 GM in IV 1 EA IV SCH (21:25)
[2019-07-30 22:00] VITALS: BP 111/59
[2019-07-31 06:00] VITALS: BP 101/48
[2019-07-31] MEDS: LEVOTHYROXINE 100MCG TABLET (0.1MG) PO SCH (06:07)
[2019-07-31] MEDS: SODIUM CHLORIDE 0.9% INJ 10 ML SYR IV SCH ×2 (06:07→17:53)
[2019-07-31 07:14] LABS: HEMATOCRIT 30.3 % (42.0-52.0); HEMOGLOBIN 9.5 g/dl (13.5-17.5); MEAN CORPUSCULAR HGB CONC 31.4 g/dl (32.0-36.5); PLATELET COUNT, AUTOMATED 186 10^3/uL (150-450); RED BLOOD COUNT 2.97 10^6/uL (4.30-6.10); WHITE BLOOD COUNT 3.2 10^3/uL (4.0-10.0)
--- NOTE | 2019-07-31 07:40 | IPNPDOC ---
Text Note Date of Service The patient was seen on 07/31/19. NOTE Subjective: Tired, had a busy day yesterday, CT chest in the AM that showed improved subcutaneous emphysema extending from the skin cesario into the left axilla but worsening L anterior wall chest mass, then had HD, and later went to IR for biopsy of the anterior chest wall mass. Objective Physical Examination General Exam: No Acute Distress Eye Exam: PERRLA, EOMI, Sclera anicteric Neck Exam: Supple Chest Exam: trace scattered bibasilar crackles, otherwise clear, chest wall with redness and tender and dressing over biopsy region. Heart Exam: Regular rate and rhythm, holosystolic murmur loudest at apex Abdomen Exam: Normoactive bowel sounds, soft, no tenderness Ext: LUE wound covered with wound vac Skin Exam: vesicular lesion underneath his axilla with blistering, also with chest wall erythema and dressing over biospy site Neuro Exam: LUE paralysis, otherwise moving all other extremities, cranial nerves 2-12 within normal limits Psych Exam: Positive: Mental status NL, AOx3 Labs: reviewed Imagin07/30/2019: CT chest with IV contrast: The skin cesario medially in the left upper extremity have been removed. The subcutaneous emphysema extending from the skin cesario into the left axilla and across the anterior left chest wall has significantly decreased. The soft tissue edema accompanying the subcutaneous emphysema has decreased. The mass in the anterolateral left chest wall has slightly increased in size, today measuring 6.4 x 4.2 cm. This previously measured 5.2 x 4.2 cm. The borderline enlarged mediastinal nodes and left axillary lymph nodes are unchanged. Chronic mosaic pattern in the lung apices is unchanged. There are probable splenomegaly, unchanged. Assessment # left upper extremity AV fistula with complication (wound infection (klebsiella)+ (MSSA) bacteremia) - Management per the vascular surgery service. - POD # 8 for removal of recently revised LUE AV fistula due to exsanguination, s/p 9 units PRBCs this hospitalization - POD # 2 s/p LUE debridement - Both B.Cxs from 07/21, and 07/22 no growth - will discuss the option of MRI brachial plexus to r/o nerve injury to left arm after infection is well controlled - Dr. Peña onboard, MSSA + klebs, adequately covered by ancef, and will need ASTRID to r/o valve veg with plan for 2weeks from date of last +BCx if no endocarditis Chest wall mass and subcutaneous emphysema: -Had follow up chest CT given the recent subcutaneous emphysema and chest wall collection/abscess --> while emphysema and surrounding inflammation has improved. anterolateral left chest mass has grown in size and is definitively described as solid in nature with no evidence of a fluid collection on speaking with radiology --> called IR that biopsied mass. -follow up anterior chest wall mass biopsy path report -In the mean time will continue ancef # CKD stage V hemodialysis dependent - inpatient HD mgmt per nephro # Anemia of Chronic kidney disease - on Aranesp with HD, Hgb stable following transfusion # MSSA Bacteremia - IV cefazolin (day # 10) - Needs ASTRID prior to discharge to r/o endorcarditis at which point we will treat with [address] Peña as stated above. # Pancytopenia - likely due to acute infection plus vanco and underlying unspecified chronic BM suppression - CBC counts are stable - platelet counts have improved # GERD - controlled with omeprazole # DVT prophylaxis - SCDs Plan/VTE VTE Prophylaxis Ordered?: Yes VS,Fishbone, I+O VS, Fishbone, I+O Laboratory Tests 07/31/19 06:43 Red Blood Count 2.97 L, Mean Corpuscular Volume 102.0 H, Mean Corpuscular Hemoglobin 32.0, Mean Corpuscular Hemoglobin Concent 31.4 L, Red Cell Distribution Width 17.0 H Vital Signs Date Time Temp Pulse Resp B/P (MAP) Pulse Ox O2 Delivery O2 Flow Rate FiO2 07/31/19 06:00 96.9 71 17 101/48 (65) 98 07/30/19 17:12 2 I&O- Last 24 Hours up to 6 AM 07/31/19 06:00 Intake Total 1291 ml Output Total 2875 ml Balance -1584 ml JOANNE SÁNCHEZ MD Jul 31, 2019 07:40
[2019-07-31 07:41] LABS: CREATININE FOR GFR 3.62 MG/DL (0.70-1.30); GLOMERULAR FILTRATION RATE 18.3 (>49); MAGNESIUM LEVEL 2.1 MG/DL (1.8-2.4); POTASSIUM SERUM 3.8 MEQ/L (3.5-5.1)
[2019-07-31] MEDS: OMEPRAZOLE 20 MG CAP PO SCH (09:00)
[2019-07-31] MEDS: MULTIVITAMINS/MINERALS THERAP 1 TAB PO SCH (09:00)
[2019-07-31] MEDS: DAKIN'S 0.25% HALF-STRENGTH SOLN 480 ML TOP SCH ×2 (09:00→20:52)
--- NOTE | 2019-07-31 09:07 | REP ---
Ultrasound-guided left chest wall biopsy This procedure was performed by LEE Dowling, under the direct supervision of Dr. Person. The patient has a history of a mass in the anterior lateral left chest wall measuring 6.4 x 4.[address] of the chest dated 07/30/2019. The risks and the benefits of the procedure were explained to the patient and informed consent was obtained both verbally and written. Directly prior to the start of the procedure, a formal time out was completed in the procedure room. The left chest wall mass was localized retroareolar using ultrasound guidance. The skin was prepped and draped in a sterile fashion. 8 ml of 1% lidocaine was used as a local anesthetic. Using ultrasound guidance a 17/18 gauge coaxial needle biopsy system was inserted and advanced to the mass. 4 core biopsy samples were obtained and sent to the lab for further analysis. The patient tolerated the procedure well and there were no immediate complications. After the appropriate amount of monitored convalescence the patient was discharged from the department. Reviewed by LEE Dowling 07/30/2019 05:34 P Electronically Signed by Tim Person MD 07/31/2019 08:59 A
[2019-07-31] MEDS: VITAMIN D 1,000 INTERNATIONAL UNITS TABLET PO SCH (10:13)
[2019-07-31] MEDS: ASCORBIC ACID 500 MG TAB PO SCH (10:13)
[2019-07-31] MEDS: ASPIRIN 81 MG ENTERIC TAB PO SCH (10:13)
[2019-07-31] MEDS: BISACODYL 5 MG TAB PO SCH (10:13)
[2019-07-31 14:00] VITALS: BP 105/46
--- NOTE | 2019-07-31 20:35 | IPN ---
DATE: 07/31/2019 Mr. Chen is seen this morning on his bedside. He is sitting in the chair and looks frustrated about his discharge plans as he wants to go home. He has a wound vac dressing on his left arm and reports that it has not been working well and needs to be replaced. He also needs a transesophageal echocardiogram done due to suspicion for endocarditis and it has not been yet scheduled by hospitalist service. The patient underwent hemodialysis yesterday which he tolerated very well. He denies any fever, chills, dyspnea or chest pain. PHYSICAL EXAMINATION Temperature 96.9 degrees Fahrenheit, heart rate 70 per minute and respiratory rate 18 per minute. Blood pressure 100/48 mmHg and oxygen saturation 98% on room air. Head is atraumatic. There is no jugular venous distention (JVD) or thyroid enlargement and Perma-Cath on right upper chest is intact. Heart: Sounds are regular and lungs sound clear to auscultation. Abdomen: Soft and nontender. Bowel sounds are normal. Extremities have no cyanosis or clubbing. Left arm is swollen and there is a wet wound vac dressing on the left upper arm wound. Left foot is in dressing. Neurologically he is awake, alert and oriented times three. Today's labs show WBC count 3.2, hemoglobin 9.5 and hematocrit 30.3. Sodium 137, potassium 3.8, BUN 24 and creatinine 3.62. PROBLEMS: 1. End-stage renal disease. The patient was dialyzed yesterday and electrolytes are normal. His volume status is reasonably stable and we will schedule his dialysis for tomorrow. His outpatient dialysis schedule is Sunday, and Sunday schedule and we will try to switch him back to his usual schedule. 2. Acute blood loss anemia. His anemia has been stable following transfusions. At present we will continue with Aranesp once a week. 3. Staphylococcus aureus bacteremia and infected left arm AV fistula. The patient had his fistula excised and wound debrided. He has a wound vac dressing now. He remains on antibiotics and waiting for a transesophageal echocardiogram to rule out endocarditis. He has been seen by Dr. Peña and will follow her recommendations for duration of antibiotic. 4. Left forearm weakness. Hospitalist service is considering an MRI of his left arm due to weakness in his hands, which is probably related to his fistula surgery and wound debridement. He also had mass in his left chest wall for which he underwent a biopsy. MTDD
[2019-07-31] MEDS: PRAVASTATIN 20 MG TAB PO SCH (20:52)
[2019-07-31] MEDS: ceFAZolin SOD 2 GM in IV 1 EA IV SCH (20:52)
--- NOTE | 2019-07-31 21:16 | ROOPDOC ---
[facility] Report Of Operation Report of Operation DATE OF PROCEDURE: 07/29/2019 PREOPERATIVE DIAGNOSES: Left forearm wound. POSTOPERATIVE DIAGNOSES: Left forearm wound. WOUND DESCRIPTION: Wound measures about 11 cm in length by 6 cm in width and 2 mm in depth PROCEDURE: Left arm wound debridement and VAC placement. SURGEON: Dr. Katy Vela M.D. WHITTLING ROOM OPERATOR: None INDICATION: Patient is a 64-year-old male who underwent removal of an infected arteriovenous fistula and now has an open wound which was healing by secondary intention in the left arm. Patient will undergo left arm wound debridement and placement of a VAC dressing. The procedure was explained and described to the patient in detail including drawing of pictures demonstrating the procedure pertinent anatomy. Risks, benefits and alternative treatment options were discussed with the patient. Benefits included but were not limited to removal of nonviable tissue to reduce infection, aid in healing and prevent loss of limb or life. Alternative treatment options included but were not limited to no intervention with continued conservative management. Risks included but were not limited to infection, bleeding, renal failure requiring hemodialysis, possible need for further open surgical intervention, increased wound size, increased wound pain, hematoma formation, scarring, bruising, possible need for transfusion of blood products, complication and/or allergic reaction from the prepping and draping materials, complication and/or allergic reaction to the anesthetic medications, increased size or worsening of the wound, cerebrovascular accident, myocardial infarction, pulmonary embolus, deep venous thrombosis, loss of limb, loss of life, poor satisfaction, poor results and poor outcome. Risks of not performing the procedure included but were not limited to infection, worsening wound size or depth, loss of limb and loss of life. All of the patient's questions were answered. Patient voices understanding and acceptance of these risks, benefits and alternative treatment options and consents to proceed with excisional debridement of the left arm wound. No promises or guarantees were made to the patient regarding the results or outcome of the procedure. ANESTHESIA: Mac. ESTIMATED BLOOD LOSS: 15 mL. IV FLUIDS: 200 HEPARIN: None PROTAMINE: None COMPLICATIONS: None. DRAINS: None SPECIMENS: None IMPLANTS: VAC dressing placement PROCEDURE: Patient was taken to the operating room, placed supine on the operating room table and the patient was prepped and draped in a standard surgical fashion. A surgical time out confirming the correct patient, procedure and laterality was then performed by myself and the team members within the operating room. Excisional debridement was then performed with pickups and a scalpel with excision of all nonviable skin subcutaneous tissue and muscle down to healthy bleeding tissue. The wound was then irrigated with Vashe solution. The VAC dressing was then placed on the left arm wound. Dressings were then applied. All instruments sponge and needle counts were correct at the end of the case. There were no complications. Dr. Vela was present for and directed the entire case. Patient was transferred to the recovery room awake, alert, extubated and in stable condition. The results of the procedure were explained and described to the patient in the recovery room with all of his questions being answered. The results of the procedure were explained and described to the patient's family in the surgical waiting room postoperatively with all questions being answered. CONCLUSION: Patient underwent debridement of the left arm wound and placement of a VAC dressing. PLAN: Patient will undergo continued tobacco wound dressing changes. Joey Vela MD Jul 31, 2019 21:16
[2019-07-31 22:00] VITALS: BP 107/50
[2019-07-31] MEDS: SODIUM CHLORIDE 0.9% INJ 10 ML SYR IV PRN (22:01)
[2019-08-01 06:00] VITALS: BP 121/50
[2019-08-01] MEDS: SODIUM CHLORIDE 0.9% INJ 10 ML SYR IV SCH ×2 (06:31→17:25)
[2019-08-01 07:02] LABS: HEMATOCRIT 32.1 % (42.0-52.0); HEMOGLOBIN 10.1 g/dl (13.5-17.5); MEAN CORPUSCULAR HEMOGLOBIN 31.1 pg (27.0-33.0); MEAN CORPUSCULAR HGB CONC 31.5 g/dl (32.0-36.5); MEAN CORPUSCULAR VOLUME 98.8 fl (80.0-96.0); PLATELET COUNT, AUTOMATED 231 10^3/uL (150-450); RED BLOOD COUNT 3.25 10^6/uL (4.30-6.10); WHITE BLOOD COUNT 3.4 10^3/uL (4.0-10.0)
[2019-08-01 07:20] LABS: C REACTIVE PROTEIN QUANTITATIV 1.99 MG/DL (0.00-0.30); CALCIUM LEVEL 8.4 MG/DL (8.8-10.2); CREATININE FOR GFR 4.97 MG/DL (0.70-1.30); GLOMERULAR FILTRATION RATE 12.7 (>49); MAGNESIUM LEVEL 2.4 MG/DL (1.8-2.4); POTASSIUM SERUM 3.9 MEQ/L (3.5-5.1)
[2019-08-01 07:43] LABS: ERYTHROCYTE SEDIMENTATION RATE 31 mm/hr (0-20)
[2019-08-01] MEDS: OMEPRAZOLE 20 MG CAP PO SCH (09:00)
[2019-08-01] MEDS: ASCORBIC ACID 500 MG TAB PO SCH (09:00)
[2019-08-01] MEDS: ASPIRIN 81 MG ENTERIC TAB PO SCH (09:00)
[2019-08-01] MEDS: MULTIVITAMINS/MINERALS THERAP 1 TAB PO SCH (09:00)
[2019-08-01] MEDS: DAKIN'S 0.25% HALF-STRENGTH SOLN 480 ML TOP SCH ×2 (09:00→20:56)
[2019-08-01] MEDS: BISACODYL 5 MG TAB PO SCH (09:00)
[2019-08-01] MEDS: VITAMIN D 1,000 INTERNATIONAL UNITS TABLET PO SCH (09:00)
--- NOTE | 2019-08-01 09:06 | IPNPDOC ---
Text Note Date of Service The patient was seen on 08/01/19. NOTE Subjective: Tired, wants to be discharged home Refused MRI of arm for brachial plexus evaluation last evening due to claustrophobia, was offered medication but declined altogether Is ordered for ASTRID and aware and NPO this morning per Dr. Montanez Objective Physical Examination General Exam: No Acute Distress Eye Exam: PERRLA, EOMI, Sclera anicteric Neck Exam: Supple Chest Exam: trace scattered bibasilar crackles, otherwise clear, chest wall redness and tenderness much improved with clean small dressing over biopsy site. Heart Exam: Regular rate and rhythm, holosystolic murmur loudest at apex Abdomen Exam: Normoactive bowel sounds, soft, no tenderness Ext: Edematous LUE wound covered with wound vac with mild blood discharge Skin Exam: vesicular lesion underneath his axilla with blistering, also with chest wall erythema and dressing over biospy site Neuro Exam: LUE minimally moving fingers othewise unable to move it at all, otherwise moving all other extremities, cranial nerves 2-12 within normal limits Psych Exam: Positive: Mental status NL, AOx3 Labs: reviewed Imagin07/30/2019: CT chest with IV contrast: The skin cesario medially in the left upper extremity have been removed. The subcutaneous emphysema extending from the skin cesario into the left axilla and across the anterior left chest wall has significantly decreased. The soft tissue edema accompanying the subcutaneous emphysema has decreased. The mass in the anterolateral left chest wall has slightly increased in size, today measuring 6.4 x 4.2 cm. This previously measured 5.2 x 4.2 cm. The borderline enlarged mediastinal nodes and left axillary lymph nodes are unchanged. Chronic mosaic pattern in the lung apices is unchanged. There are probable splenomegaly, unchanged. Assessment # left upper extremity AV fistula with complication (wound infection (klebsiella)+ (MSSA) bacteremia) - Management per the vascular surgery service. - POD # 9 for removal of recently revised LUE AV fistula due to exsanguination, s/p 9 units PRBCs this hospitalization - POD # 3 s/p LUE debridement - Both B.Cxs from 07/21, and 07/22 no growth - declined MRI brachial plexus to r/o nerve injury to left arm due to claustrophobia and declined medications to prep for test - Dr. Peña onboard, MSSA + klebs, adequately covered by ancef, pending ASTRID today with Dr. Montanez to r/o valve veg with plan for 2weeks from date of last +BCx if no endocarditis Chest wall mass and subcutaneous emphysema: -Had follow up chest CT given the recent subcutaneous emphysema and chest wall collection/abscess --> while emphysema and surrounding inflammation has improved. anterolateral left chest mass has grown in size and is definitively described as solid in nature with no evidence of a fluid collection on speaking with radiology --> called IR that biopsied mass. -follow up anterior chest wall mass biopsy path report, still pending -In the mean time will continue ancef # CKD stage V hemodialysis dependent - inpatient HD mgmt per nephro # Anemia of Chronic kidney disease - on Aranesp with HD, Hgb stable following transfusion # MSSA Bacteremia - IV cefazolin (day # 11) - Pending ASTRID today to r/o endorcarditis at which point we will treat with [address] Peña as stated above. # Pancytopenia - likely due to acute infection plus vanco and underlying unspecified chronic BM suppression - CBC counts are stable - platelet counts have improved # GERD - controlled with omeprazole # DVT prophylaxis - SCDs Plan/VTE VTE Prophylaxis Ordered?: Yes VS,Nandinie, I+O VS, Nandinie, I+O Laboratory Tests 08/01/19 06:26 Red Blood Count 3.25 L, Mean Corpuscular Volume 98.8 H, Mean Corpuscular Hemoglobin 31.1, Mean Corpuscular Hemoglobin Concent 31.5 L, Red Cell Distribution Width 17.0 H, Calcium Level 8.4 L Vital Signs Date Time Temp Pulse Resp B/P (MAP) Pulse Ox O2 Delivery O2 Flow Rate FiO2 08/01/19 06:00 98.5 87 20 121/50 (73) 98 07/30/19 17:12 2 I&O- Last 24 Hours up to 6 AM 08/01/19 06:00 Intake Total 1024 ml Output Total 0 ml Balance 1024 ml JOANNE SÁNCHEZ MD Aug 01, 2019 09:06
[2019-08-01] MEDS: LEVOTHYROXINE 100MCG TABLET (0.1MG) PO SCH (09:19)
[2019-08-01] MEDS ORDERED: HEPARIN 1,000 UNITS/ML 10ML VIAL (FOR RADIOLOGY& DIALYSIS ONLY) XX ONE (13:00)
[2019-08-01 14:00] VITALS: BP 115/55
[2019-08-01 14:18] VITALS: BP 115/55
[2019-08-01] MEDS ORDERED: LIDOCAINE VISCOUS 2% SOLN 15ML UDC As Ordered ONE (14:33)
[2019-08-01] MEDS ORDERED: CETACAINE SPRAY 5GM As Ordered ONE (14:33)
[2019-08-01] MEDS: oxyCODONE 5MG TAB PO PRN ×2 (17:25→22:14)
--- NOTE | 2019-08-01 20:32 | IPN ---
DATE: 08/01/2019 Mr. Chen just came back from dialysis. He is doing well. He has no new complaints. He is anxious to go home. He does complain of being fluid overloaded, and he is going to dialysis again tomorrow for ultrafiltration. He has no nausea, vomiting, diarrhea. No abdominal pain. Left arm strength has slightly improved. He is able to flex his fingers slightly, and he has better range of motion of his left shoulder. He refused to have MRI of the brachial plexus due to claustrophobia. On physical exam, healthy-looking, in no acute distress. Temperature is 96.6, pulse 75, respirations 19, blood pressure 115/55, oxygen saturation (O2 sat) 97% on room air. Heart: Normal S1, S2 with a holosystolic murmur 3/6 heard over whole precordium but mostly at the left upper sternal border. Lungs are clear. No wheezes, rales or rhonchi. Abdomen is soft, nontender. Extremities: +2 pitting edema bilaterally. Left arm swollen with wound VAC in place. Shoulder range of motion: He is able to abduct about 45 degrees. Wrist nontender, but he has limited flexion of the fingers. LABORATORY DATA: White count 3.4, hemoglobin 10.1, hematocrit 32.1, platelets 231. ESR 31. Sodium 138, potassium 3.9, chloride 101, bicarbonate 28, BUN 35, creatinine 4.97, glucose 83, calcium 8.4, magnesium 2.4, CRP 1.99 down from 10.4. Blood cultures negative on 07/21 and 07/22. IMPRESSION: 1. Septic thrombophlebitis of vascular graft with Klebsiella and methicillin-sensitive Staphylococcus aureus (MSSA) infection and secondary MSSA bacteremia. The patient has been on appropriate antibiotics with negative cultures since 07/21/2019. He will need 4 weeks of IV antibiotics since transesophageal echocardiogram could not be obtained; due to difficult airway, that was canceled today. Patient clinically improving. Hopefully going to the operating room (OR) tomorrow for change of wound VAC and maybe closure of the wound. 2. End-stage renal disease, on hemodialysis. The patient is fluid overloaded and will be going for an extra dialysis session tomorrow. 3. Left upper extremity weakness. The patient refused MRI of the brachial plexus due to claustrophobia. He is encouraged to continue working with physical therapy (PT), occupational therapy (OT) for strengthening. PLAN: Anticipate hopefully discharge early next week, possibly with a wound VAC and nursing, public health. End of therapy of IV cefazolin would be August 18, 2019. He can finish his antibiotic at dialysis. He would need dosing of 2 grams and 3 grams for the long weekend. Case has been discussed with Dr. Caballero and Dr. Montanez who had canceled the transesophageal echocardiogram, and the patient agrees with the plan.
--- NOTE | 2019-08-01 20:47 | IPN ---
DATE: 08/01/2019 Mr. Chen seen this morning during hemodialysis. He is feeling about the same and denies any new complaints. He is scheduled for a transesophageal echocardiogram at 05:00 p.m. today. He also reports that Dr. Vela changed the wound Vac dressing and is going to try to close is wound on Sunday. The patient denies any dyspnea, chest pain, fever or chills. He remains on intravenous cephazolin for staph aureus bacteremia and infected wound in the left arm. PHYSICAL EXAMINATION Temperature 98.5 degrees Fahrenheit, heart rate 87 per minute and respiratory rate 20 per minute. Blood pressure about 100/50 mmHg and oxygen saturation is 98%. Neck is supple and jugular venous distention (JVD) not elevated. Perma-Cath on right upper chest is intact without any signs of infection and bleeding. Heart: Sounds are regular and lungs clear to auscultation. Abdomen: Soft and nontender and bowel sounds normal. Extremities: Without any cyanosis or clubbing. He does have some edema more on the left leg and left foot is wrapped in dressing. Neurologically he is awake, alert and at his baseline mentation. Today's labs show WBC count 3.4, hemoglobin 10.1 and hematocrit 32.1. Platelets 231. Sodium 138, potassium 3.9, CO2 28, BUN 35 and creatinine 4.97. C-reactive protein is down to 1.99. PROBLEMS: 1. End-stage renal disease. The patient is being dialyzed and he is tolerating dialysis treatment very well. We will only remove about 1.5 liters fluid today as his blood pressure is soft and he is scheduled for transesophageal echocardiogram later today. He is regularly dialyzed on Sunday, and Sunday schedule as an outpatient. We will try to switch him back to his regular schedule next week. 2. Anemia. At present his anemia is stable and will continue to monitor closely. He is receiving Aranesp 200 mcg once a week during dialysis. 3. Staph aureus bacteremia and infected left arm AV fistula. The patient is status post removal of AV fistula and debridement of wound. He remains on cephazolin and is currently afebrile. He is scheduled for a transesophageal echocardiogram today to rule out any possibility of endocarditis.
[2019-08-01] MEDS: ceFAZolin SOD 2 GM in IV 1 EA IV SCH (21:12)
[2019-08-01] MEDS: PRAVASTATIN 20 MG TAB PO SCH (21:12)
[2019-08-01] MEDS: SODIUM CHLORIDE 0.9% INJ 10 ML SYR IV PRN (22:15)
[2019-08-02] MEDS: oxyCODONE 5MG TAB PO PRN ×2 (04:17→12:04)
[2019-08-02] MEDS: SODIUM CHLORIDE 0.9% INJ 10 ML SYR IV PRN (05:51)
[2019-08-02] MEDS: SODIUM CHLORIDE 0.9% INJ 10 ML SYR IV SCH ×2 (05:51→18:16)
[2019-08-02] MEDS: LEVOTHYROXINE 100MCG TABLET (0.1MG) PO SCH (05:51)
--- NOTE | 2019-08-02 07:31 | IPNPDOC ---
Text Note Date of Service The patient was seen on 08/02/19. NOTE Subjective: -Anxious to get home, otherwise no complaints this morning, awaiting returning to the OR for more debridement and anticipating going home early next week. -ASTRID cancelled per Dr. Montanez given history of airway narrowing s/p remote surgery, patient in agreement with prolonged antibiotics Objective Physical Examination General Exam: No Acute Distress Eye Exam: PERRLA, EOMI, Sclera anicteric Neck Exam: Supple Chest Exam: trace scattered bibasilar crackles, otherwise clear, chest wall redness and tenderness much improved with clean small dressing over biopsy site. Heart Exam: Regular rate and rhythm, holosystolic murmur loudest at apex Abdomen Exam: Normoactive bowel sounds, soft, no tenderness Ext: Edematous LUE wound covered with wound vac with mild blood discharge Skin Exam: Much improved chest wall erythema with a small dressing over biospy site Neuro Exam: LUE minimally moving fingers otherwise unable to move it at all, otherwise moving all other extremities, cranial nerves 2-12 within normal limits Psych Exam: Positive: Mental status NL, AOx3 Labs: reviewed Imagin07/30/2019: CT chest with IV contrast: The skin cesario medially in the left upper extremity have been removed. The subcutaneous emphysema extending from the skin cesario into the left axilla and across the anterior left chest wall has significantly decreased. The soft tissue edema accompanying the subcutaneous emphysema has decreased. The mass in the anterolateral left chest wall has slightly increased in size, today measuring 6.4 x 4.2 cm. This previously measured 5.2 x 4.2 cm. The borderline enlarged mediastinal nodes and left axillary lymph nodes are unchanged. Chronic mosaic pattern in the lung apices is unchanged. There are probable splenomegaly, unchanged. Assessment # left upper extremity AV fistula with complication (wound infection (klebsiella)+ (MSSA) bacteremia) - Management per the vascular surgery service. - POD # 10 for removal of recently revised LUE AV fistula due to exsanguination, s/p 9 units PRBCs this hospitalization - POD # 4 s/p LUE debridement - Both B.Cxs from 07/21, and 07/22 no growth - declined MRI brachial plexus to r/o nerve injury to left arm due to claustrophobia - Dr. Peña onboard, MSSA + klebs, adequately covered by ancef, no ASTRID per Dr. Montanez to r/o valve veg with plan for 4 weeks of abx from date of last +BCx per Dr. Peña with end date of 08/18/2019 Chest wall mass and subcutaneous emphysema: -Had follow up chest CT given the recent subcutaneous emphysema and chest wall collection/abscess --> while emphysema and surrounding inflammation has improved. anterolateral left chest mass has grown in size and is definitively described as solid in nature with no evidence of a fluid collection on speaking with radiology --> called IR that biopsied mass. -follow up anterior chest wall mass biopsy path report, still pending -In the mean time will continue ancef # CKD stage V hemodialysis dependent - inpatient HD mgmt per nephro # Anemia of Chronic kidney disease - on Aranesp with HD, Hgb stable following transfusion # MSSA Bacteremia - IV cefazolin (day # 12) - no ASTRID to r/o endorcarditis per Dr. Montanez due to c/f difficult airway, will treat with [address] Peña, with IV anfec to be dosed post HD and end date 08/18/2019. # Pancytopenia - likely due to acute infection plus vanco and underlying unspecified chronic BM suppression - CBC counts are stable - platelet counts have improved # GERD - controlled with omeprazole # DVT prophylaxis - SCDs Plan/VTE VTE Prophylaxis Ordered?: Yes VS,Fishbone, I+O VS, Fishbone, I+O Vital Signs Date Time Temp Pulse Resp B/P (MAP) Pulse Ox O2 Delivery O2 Flow Rate FiO2 08/02/19 06:00 96.9 68 17 96 08/01/19 14:18 115/55 (75) 07/30/19 17:12 2 I&O- Last 24 Hours up to 6 AM 08/02/19 06:00 Intake Total 650 ml Output Total 1000 ml Balance -350 ml JOANNE SÁNCHEZ MD Aug 02, 2019 07:31
[2019-08-02 07:42] LABS: HEMATOCRIT 29.7 % (42.0-52.0); HEMOGLOBIN 9.3 g/dl (13.5-17.5); MEAN CORPUSCULAR HEMOGLOBIN 31.2 pg (27.0-33.0); MEAN CORPUSCULAR HGB CONC 31.3 g/dl (32.0-36.5); MEAN CORPUSCULAR VOLUME 99.7 fl (80.0-96.0); PLATELET COUNT, AUTOMATED 198 10^3/uL (150-450); RED BLOOD COUNT 2.98 10^6/uL (4.30-6.10); WHITE BLOOD COUNT 2.5 10^3/uL (4.0-10.0)
[2019-08-02 08:04] LABS: CALCIUM LEVEL 8.1 MG/DL (8.8-10.2); CREATININE FOR GFR 3.46 MG/DL (0.70-1.30); GLOMERULAR FILTRATION RATE 19.2 (>49)
[2019-08-02] MEDS: BISACODYL 5 MG TAB PO SCH (09:00)
[2019-08-02] MEDS: DAKIN'S 0.25% HALF-STRENGTH SOLN 480 ML TOP SCH ×2 (09:00→21:00)
[2019-08-02] MEDS: MULTIVITAMINS/MINERALS THERAP 1 TAB PO SCH (09:00)
[2019-08-02] MEDS: OMEPRAZOLE 20 MG CAP PO SCH (09:00)
[2019-08-02] MEDS: ASPIRIN 81 MG ENTERIC TAB PO SCH (09:50)
[2019-08-02] MEDS: VITAMIN D 1,000 INTERNATIONAL UNITS TABLET PO SCH (09:50)
[2019-08-02] MEDS: ASCORBIC ACID 500 MG TAB PO SCH (09:50)
[2019-08-02] MEDS ORDERED: HEPARIN 1,000 UNITS/ML 10ML VIAL (FOR RADIOLOGY& DIALYSIS ONLY) XX ONE (11:30)
--- NOTE | 2019-08-02 13:52 | IPNPDOC ---
Date Seen The patient was seen on 08/02/19. Progress Note Pt seen and examined while in dialysis today. I was asked to take over his care by Dr Vela. He is doing ok, but anxious for D/c home. He has significant swelling LUE hand to axilla, and wound vac is intact to suction with serosanguinous drainage. He and I again discussed risks, benefits and alt ernatives to a washout of the LUE in the OR tomorrow. It still is a bit oozy, and we will try to improve hemostasis. He wants me to try to close it, but I warned him with the recent soft tissue infection, we may cause more problems trying to close the tissue. We will see how it looks in the OR tomorrow--since I haven't seen the wound before, it's hard for me to predict what will need to be done. May need excisional debridement, may need hemostasis, may need to be closed vs left open to close by secondary intent with a wound vac. He is agreeable to plan. Informed consent was obtained. NPO p MN tonight. VS, I&O, 24H, Fishbone Vital Signs/I&O Vital Signs Date Time Temp Pulse Resp B/P (MAP) Pulse Ox O2 Delivery O2 Flow Rate FiO2 08/02/19 12:04 18 08/02/19 06:00 96.9 68 96 08/01/19 14:18 115/55 (75) 07/30/19 17:12 2 I&O- Last 24 Hours up to 6 AM 08/02/19 06:00 Intake Total 650 ml Output Total 1000 ml Balance -350 ml Laboratory Data 24H LABS Laboratory Tests 2 08/02/19 07:08: Nucleated Red Blood Cells % (auto) 0.0, Anion Gap 7L, Glomerular Filtration Rate 19.2L, Blood Urea Nitrogen 20H, Creatinine 3.46H, Sodium Level 139, Potassium Level 4.0, Chloride Level 102, Carbon Dioxide Level 30, Calcium Level 8.1L CBC/BMP Laboratory Tests 08/02/19 07:08 Red Blood Count 2.98 L, Mean Corpuscular Volume 99.7 H, Mean Corpuscular Hemoglobin 31.2, Mean Corpuscular Hemoglobin Concent 31.3 L, Red Cell Distribution Width 17.4 H, Calcium Level 8.1 L IAN JOHNSON MD Aug 02, 2019 13:51
[2019-08-02 14:00] VITALS: BP 138/68
--- NOTE | 2019-08-02 14:41 | IPN ---
DATE: 08/02/2019 SUBJECTIVE: The patient was seen and examined at the bedside today morning. The patient is afebrile, hemodynamically stable. He was sitting in the sofa. He reports that he has significant edema of the lower extremities and he wants me to take care of that edema. He was dialyzed yesterday. Only 1 liter of fluid was removed. The patient's regular dialysis days are Sunday, , Sunday as outpatient; however, in the hospital he is getting Sunday, Sunday, Sunday dialysis and he is requesting another dialysis today. Change of his wound VAC was done by the staff and he is pending exploration of the wound to be done by vascular surgery tomorrow. OBJECTIVE: VITAL SIGNS: Temperature is 96.9 degrees Fahrenheit, blood pressure is 115/55, pulse is 68, respiratory rate is 17, saturating 96% on room air. INTAKE AND OUTPUT: There is no urine output recorded. Ultrafiltration with hemodialysis was 1 liter. Weight in the bed scale is not available. PHYSICAL EXAMINATION: GENERAL: The patient is awake, alert, oriented times three, sitting up in the sofa in no apparent distress. HEAD AND NECK EXAM: Extraocular muscles intact. Pupils equally round and reactive to light. Neck is supple. He has a right internal jugular (IJ) tunneled hemodialysis catheter. CARDIOVASCULAR: S1, S2. Regular rate. 3+ edema of the bilateral lower extremities up to the knees. RESPIRATORY: Chest is clear to auscultation bilaterally. Bilateral equal air entry. No rales or rhonchi. ABDOMEN: Soft, positive bowel sounds. Nontender. No organomegaly. MUSCULOSKELETAL: The patient has a wound VAC on the left arm and he has shortened right lower extremity. CENTRAL NERVOUS SYSTEM (PROFESSOR OF THEATER): No focal deficit. Power is 5/5 in all extremities. LABORATORY REVIEW: Complete blood count (CBC) showed a WBC 2.5, hemoglobin 9.3, platelets of 198. Basic metabolic panel (BMP) showed sodium 139, potassium 4, chloride 102, bicarbonate 30, BUN 20, creatinine is 3.4. CURRENT INPATIENT MEDICATIONS: Patient's medications were all reviewed by me. He continues to be on intravenous (IV) Ancef 2 grams daily. No other change in the medications today as compared with yesterday. ASSESSMENT AND PLAN: 1. End-stage renal disease on hemodialysis. Patient's regular dialysis days are Sunday, , Sunday. He has significant edema. I am going to do another session of dialysis today and try to remove at least a 2.5 liters of fluid. 2. Anemia in end-stage renal disease. Hemoglobin is optimal. Continue current dose of Aranesp 200 mcg with dialysis once a week. 3. Lower extremity edema. Patient has significant volume overload because of minimal ultrafiltration during dialysis because of his sickness and infection. Now I am going to remove 2.5 liters. If needed, he will get another session of ultrafiltration on Sunday. 4. Left upper arm arteriovenous (AV) fistula and Staphylococcus aureus bacteremia. Patient's transesophageal echocardiogram was not possible because of esophageal stricture. He continues to been IV Ancef and patient has a wound VAC at this time. He will get the wound exploration done tomorrow by vascular surgery.
[2019-08-02] MEDS: PRAVASTATIN 20 MG TAB PO SCH (20:47)
[2019-08-02] MEDS: ceFAZolin SOD 2 GM in IV 1 EA IV SCH (21:00)
[2019-08-02 22:00] VITALS: BP 120/56
[2019-08-03] MEDS: oxyCODONE 5MG TAB PO PRN ×3 (02:40→21:45)
[2019-08-03 06:00] VITALS: BP 118/60
[2019-08-03] MEDS ORDERED: VANCOMYCIN HCL 1,000 MG, VIAL MATE ADAPTER 1 EACH in D5W 250 ML IV ONE (06:00)
[2019-08-03] MEDS: SODIUM CHLORIDE 0.9% INJ 10 ML SYR IV SCH ×2 (06:22→17:53)
[2019-08-03] MEDS: LEVOTHYROXINE 100MCG TABLET (0.1MG) PO SCH (06:23)
[2019-08-03] MEDS ORDERED: VANCOMYCIN HCL 1,000 MG, VIAL MATE ADAPTER 1 EACH in D5W 250 ML IV SCH (06:45)
[2019-08-03 07:29] LABS: HEMATOCRIT 32.4 % (42.0-52.0); HEMOGLOBIN 10.1 g/dl (13.5-17.5); MEAN CORPUSCULAR HEMOGLOBIN 31.5 pg (27.0-33.0); MEAN CORPUSCULAR HGB CONC 31.2 g/dl (32.0-36.5); MEAN CORPUSCULAR VOLUME 100.9 fl (80.0-96.0); PLATELET COUNT, AUTOMATED 190 10^3/uL (150-450); RED BLOOD COUNT 3.21 10^6/uL (4.30-6.10); WHITE BLOOD COUNT 2.8 10^3/uL (4.0-10.0)
[2019-08-03 07:49] LABS: CALCIUM LEVEL 8.3 MG/DL (8.8-10.2); CREATININE FOR GFR 2.99 MG/DL (0.70-1.30); GLOMERULAR FILTRATION RATE 22.8 (>49); POTASSIUM SERUM 3.9 MEQ/L (3.5-5.1)
--- NOTE | 2019-08-03 08:22 | IPNPDOC ---
Text Note Date of Service The patient was seen on 08/03/19. NOTE Subjective: -Anxious to get home, otherwise no complaints this morning, going to the OR with Dr. Paniagua and anticipating going home early next week. Objective Physical Examination General Exam: No Acute Distress Eye Exam: PERRLA, EOMI, Sclera anicteric Neck Exam: Supple Chest Exam: trace scattered bibasilar crackles, otherwise clear, chest wall redness and tenderness much improved with clean small dressing over biopsy site. Heart Exam: Regular rate and rhythm, holosystolic murmur loudest at apex Abdomen Exam: Normoactive bowel sounds, soft, no tenderness Ext: Swollen LUE wound covered with wound vac Skin Exam: Much improved chest wall erythema with a small dressing over biospy site Neuro Exam: LUE minimally moving fingers otherwise unable to move it at all, otherwise moving all other extremities, cranial nerves 2-12 within normal limits Psych Exam: Positive: Mental status NL, AOx3 Labs: reviewed Imagin07/30/2019: CT chest with IV contrast: The skin cesario medially in the left upper extremity have been removed. The subcutaneous emphysema extending from the skin cesario into the left axilla and across the anterior left chest wall has significantly decreased. The soft tissue edema accompanying the subcutaneous emphysema has decreased. The mass in the anterolateral left chest wall has slightly increased in size, today measuring 6.4 x 4.2 cm. This previously measured 5.2 x 4.2 cm. The borderline enlarged mediastinal nodes and left axillary lymph nodes are unchanged. Chronic mosaic pattern in the lung apices is unchanged. There are probable splenomegaly, unchanged. Assessment # left upper extremity AV fistula with complication (wound infection (klebsiella)+ (MSSA) bacteremia) - Management per the vascular surgery service. - POD # 11 for removal of recently revised LUE AV fistula due to exsanguination, s/p 9 units PRBCs this hospitalization - POD # 5 s/p LUE debridement - Both B.Cxs from 07/21, and 07/22 no growth - declined MRI brachial plexus to r/o nerve injury to left arm due to claustrophobia - Dr. Peña onboard, MSSA + klebs, adequately covered by ancef, no ASTRID per Dr. Lennonol to r/o valve veg with plan for 4 weeks of abx from date of last +BCx per Dr. Peña with end date of 08/18/2019 - Going to the OR with Dr. Paniagua for likely more debridement and re- evaluation Chest wall mass and subcutaneous emphysema: -Had follow up chest CT given the recent subcutaneous emphysema and chest wall collection/abscess --> while emphysema and surrounding inflammation has improved. anterolateral left chest mass has grown in size and is definitively described as solid in nature with no evidence of a fluid collection on speaking with radiology --> called IR that biopsied mass. -follow up anterior chest wall mass biopsy path report, still pending # CKD stage V hemodialysis dependent - inpatient HD mgmt per nephro # Anemia of Chronic kidney disease - on Aranesp with HD, Hgb stable following transfusion # MSSA Bacteremia - IV cefazolin (day # 13) - no ASTRID to r/o endorcarditis per Dr. Montanez due to c/f difficult airway, will treat with [address] Peña, with IV anfec to be dosed post HD and end date 08/18/2019. # Pancytopenia - likely due to acute infection plus vanco and underlying unspecified chronic BM suppression - CBC counts are stable - platelet counts have improved # GERD - controlled with omeprazole # DVT prophylaxis - SCDs Plan/VTE VTE Prophylaxis Ordered?: Yes VS,Fishbone, I+O VS, Fishbone, I+O Laboratory Tests 08/03/19 06:46 Red Blood Count 3.21 L, Mean Corpuscular Volume 100.9 H, Mean Corpuscular Hemoglobin 31.5, Mean Corpuscular Hemoglobin Concent 31.2 L, Red Cell Distribution Width 18.0 H, Calcium Level 8.3 L Vital Signs Date Time Temp Pulse Resp B/P (MAP) Pulse Ox O2 Delivery O2 Flow Rate FiO2 08/03/19 06:00 96.6 77 16 118/60 (79) 96 07/30/19 17:12 2 I&O- Last 24 Hours up to 6 AM 08/03/19 06:00 Intake Total 1723 ml Output Total 2850 ml Balance -1127 ml JOANNE SÁNCHEZ MD Aug 03, 2019 08:22
[2019-08-03] MEDS: MULTIVITAMINS/MINERALS THERAP 1 TAB PO SCH (09:00)
[2019-08-03] MEDS: DAKIN'S 0.25% HALF-STRENGTH SOLN 480 ML TOP SCH ×2 (09:00→19:54)
[2019-08-03] MEDS: BISACODYL 5 MG TAB PO SCH (09:00)
[2019-08-03] MEDS: OMEPRAZOLE 20 MG CAP PO SCH (09:00)
[2019-08-03] MEDS: ASCORBIC ACID 500 MG TAB PO SCH (09:32)
[2019-08-03] MEDS: VITAMIN D 1,000 INTERNATIONAL UNITS TABLET PO SCH (09:32)
[2019-08-03] MEDS: ASPIRIN 81 MG ENTERIC TAB PO SCH (09:32)
[2019-08-03 14:00] VITALS: BP 116/80
--- NOTE | 2019-08-03 20:33 | IPN ---
DATE: 08/03/2019 SUBJECTIVE: The patient was seen and examined the bedside today morning. He was sitting in sofa today. He was dialyzed yesterday and 2.5 liters of fluid was removed. However, he reports persistent lower extremity edema despite dialysis and fluid removal. The patient is also going to have exploration of the left arm wound VAC site and he is also insistent that he wants to go home tomorrow. OBJECTIVE: Vital signs: Temperature is 96.6 degrees Fahrenheit, blood pressure 118/60, pulse is 77, respiratory rate of 16, saturating 96% on room air. Intake and output: Ultrafiltration with hemodialysis was 2.5 liters yesterday. Weight in the bed scale is not available. PHYSICAL EXAMINATION: General: The patient is awake, alert, oriented times three, sitting up in the sofa, no apparent distress. Head and neck exam: The patient has old surgical scars on the chin and on the neck. Mucous membranes are moist. Neck is supple. He has a right IJ tunneled hemodialysis catheter. Cardiovascular: S1, S2, regular rate, 2+ edema of the bilateral ankles up to the mid shins. Respiratory: Chest is clear to auscultation bilaterally. Bilateral equal air entry. No rales or rhonchi. Abdomen: Soft, positive bowel sounds. Nontender. No organomegaly. Musculoskeletal: The patient has a shortened right leg, edema of the bilateral lower extremities as mentioned above. He also has edema of the left upper extremity and he has wound VAC in the left arm. HUMAN SERVICES PROGRAM SPECIALIST: No focal deficit, power is 5/5 in all extremities. LABORATORY REVIEW: CBC showed WBC 2.8, hemoglobin 10.1, platelets 190. BMP showed sodium 137, potassium 3.9, chloride 101, bicarbonate 32, BUN 16, creatinine is 2.9, calcium 8.3. CURRENT INPATIENT MEDICATIONS: The patient's medications were all reviewed by me. He is going to be given vancomycin before the procedure today. He is also on Ancef. No other change in the medications today as compared with yesterday. ASSESSMENT/PLAN: 1. End-stage renal disease on hemodialysis. The patient's regular dialysis days are Sunday, , Sunday. He was dialyzed yesterday according to his regular schedule. If needed, he will get an extra session of ultrafiltration tomorrow morning. Otherwise, the patient is optimized for the surgical procedure today. 2. Anemia in end-stage renal disease. Continue current dose of Aranesp. Hemoglobin level is within the acceptable range. 3. Lower extremity edema. The patient got extra fluid removal and session of dialysis yesterday. However, he still has edema. If he is still here by tomorrow, I will do an session of ultrafiltration but the patient is adamant that he wants to go home tomorrow. 4. Left upper arm AV fistula site infection and Staphylococcus aureus bacteremia. The patient has a wound VAC in the left arm. He is going to have wound exploration today by vascular surgery. Continue the IV Ancef as recommended by infectious disease. 5. Protein calorie malnutrition. The patient drinks Nepro only and protein shakes because of history of neck dissection and esophageal stricture.
[2019-08-03] MEDS: ceFAZolin SOD 2 GM in IV 1 EA IV SCH (20:35)
[2019-08-03] MEDS: PRAVASTATIN 20 MG TAB PO SCH (20:35)
[2019-08-03] MEDS: SODIUM CHLORIDE 0.9% INJ 10 ML SYR IV PRN (21:40)
[2019-08-03 22:00] VITALS: BP 120/72
[2019-08-04] MEDS: oxyCODONE 5MG TAB PO PRN ×2 (02:32→21:01)
[2019-08-04] MEDS: LEVOTHYROXINE 100MCG TABLET (0.1MG) PO SCH (05:45)
[2019-08-04] MEDS: SODIUM CHLORIDE 0.9% INJ 10 ML SYR IV SCH ×2 (05:45→17:59)
[2019-08-04] MEDS: SODIUM CHLORIDE 0.9% INJ 10 ML SYR IV PRN ×3 (05:52→21:46)
[2019-08-04 06:21] LABS: HEMATOCRIT 31.1 % (42.0-52.0); HEMOGLOBIN 9.9 g/dl (13.5-17.5); MEAN CORPUSCULAR HEMOGLOBIN 31.9 pg (27.0-33.0); MEAN CORPUSCULAR HGB CONC 31.8 g/dl (32.0-36.5); MEAN CORPUSCULAR VOLUME 100.3 fl (80.0-96.0); PLATELET COUNT, AUTOMATED 169 10^3/uL (150-450); WHITE BLOOD COUNT 2.8 10^3/uL (4.0-10.0)
[2019-08-04 06:50] LABS: CALCIUM LEVEL 8.4 MG/DL (8.8-10.2); CREATININE FOR GFR 4.36 MG/DL (0.70-1.30); GLOMERULAR FILTRATION RATE 14.7 (>49); POTASSIUM SERUM 4.1 MEQ/L (3.5-5.1)
[2019-08-04] MEDS ORDERED: ONDANSETRON 4MG/2ML VIAL (J2405) As Ordered ONE (08:10)
[2019-08-04] MEDS ORDERED: PROPOFOL 200 MG/20 ML VIAL As Ordered ONE ×3 (08:10→11:36)
[2019-08-04] MEDS ORDERED: LIDOCAINE 2% INJ 100 MG/5 ML SDV (FOR ANES.) As Ordered ONE (08:10)
[2019-08-04] MEDS ORDERED: dexameTHASONE 4 MG/ML 1ML VIAL (J1100) As Ordered ONE (08:10)
[2019-08-04] MEDS: BISACODYL 5 MG TAB PO SCH (08:35)
[2019-08-04] MEDS: MULTIVITAMINS/MINERALS THERAP 1 TAB PO SCH (08:35)
[2019-08-04] MEDS: VITAMIN D 1,000 INTERNATIONAL UNITS TABLET PO SCH (08:43)
[2019-08-04] MEDS: ASCORBIC ACID 500 MG TAB PO SCH (08:44)
[2019-08-04] MEDS: OMEPRAZOLE 20 MG CAP PO SCH (08:44)
[2019-08-04] MEDS: ASPIRIN 81 MG ENTERIC TAB PO SCH (08:45)
[2019-08-04] MEDS: DAKIN'S 0.25% HALF-STRENGTH SOLN 480 ML TOP SCH ×2 (09:00→19:14)
[2019-08-04] MEDS ORDERED: fentaNYL 100 MCG/2 ML INJECTION (J3010) As Ordered ONE (09:19)
[2019-08-04] MEDS ORDERED: MIDAZOLAM INJ 2 MG/2 ML VIAL (J2250) As Ordered ONE (09:19)
[2019-08-04] MEDS ORDERED: VANCOMYCIN 1000 MG/20 ML VIAL (J3370) As Ordered ONE (10:56)
[2019-08-04] MEDS ORDERED: ceFAZolin 1GM INJ (J0690 PER 500MG) As Ordered ONE (10:57)
[2019-08-04] MEDS ORDERED: LIDOCAINE W/EPINEPHRINE 1% 20ML VIAL As Ordered ONE (11:18)
--- NOTE | 2019-08-04 12:09 | ROOPDOC ---
[facility] Report Of Operation Report of Operation DATE OF PROCEDURE: 08/04/19 PREPROCEDURE DIAGNOSES: Open wound left upper extremity POSTPROCEDURE DIAGNOSES: Same PROCEDURE: 1. Washout left upper extremity wound and hemostasis 2. Excisional debridement anteromedial aspect of wound, 10 cm debrided skin subcutaneous tissue 3. Wound VAC placement, 180 cm wound left upper extremity SURGEON: Ian Paniagua MD ANESTHESIA: Local anesthesia and monitored anesthesia care INDICATION FOR PROCEDURE: Mr. Chen is a very pleasant 64-year-old gentleman who had a left brachial basilic AV fistula placed with Dr. Vela, and then he had performed a transposition thereafter. Following the transposition, the patient had profound bleeding and blood loss, and hemostasis continued to be an issue for over a week. Eventually, Dr. Vela took the patient back and li gated the fistula. During this time, the patient was found to have subcutaneous air in the arm and chest, and significant infection in the subcutaneous tissue. Therefore, when the fistula was ligated, a large amount of soft tissue was excised and the wound was left open with a wound VAC. We bring the patient back today for washout, hemostasis, and possibly additional excisional debridement if necessary. Risks benefits and alternatives were explained to the patient. He is agreeable to proceed. Informed consent was obtained. REPORT OF OPERATION: The patient was brought to the OR in stable condition and placed supine on your table. His left upper extremity was prepped and draped in a sterile fashion. Antibiotics and moderate anesthesia care were provided by her anesthesia colleagues without complication. A timeout was performed. Local anesthesia was administered to the skin and subcutaneous tissue around the edge of the open wound. There was a through and through necrotic aspect of skin on the anteromedial aspect which was excised. This excisional debridement was 3 cm length by 3.5 cm width by 1 cm depth. Bovie cautery was used for hemostasis. We then copiously irrigated the entire cavity with several liters of antibiotic irrigation. Bovie cautery and Surgicel were used for hemostasis. We irrigated one last time, and then measurements were taken. The skin area is 10 cm width by 18 cm length by 0.5 cm depth. However, there is undermining proximally 8 cm, posteriorly 2 cm, anteriorly 4 cm, and distally 1 cm. A single spiral wound VAC sponge was placed first along the undermined edge under the skin and then spiraled through the center. No small pieces of sponge were placed in the tunneled areas. This was covered with drape and placed to low continuous suction -125 mmHg. There was a good seal, and minimal drainage. Next, the arm and hand were thoroughly cleaned and dried. Lotion was placed from the fingertips to the axilla and due to swelling in the arm, I've wrapped the arm from the hand to the axilla with 4 inch Solis wraps. We then allow the patient to awaken from anest hesia and he was taken to PACU in stable condition. ESTIMATED BLOOD LOSS: Approximately 50 mL. COMPLICATIONS: None. SPECIMENS: Cultures were sent from the undermined open area near the axilla and sent for microbiology for Gram stain, aerobic and anaerobic. PLAN: Our plan is for the patient to discharge home with home health for wound VAC changes. We also like him to see Dr. Pena in the next few weeks at the wound care center to see if he has any additional help he could offer in healing this very large wound. Compression and elevation will be helpful for the swelling. The patient seems to have motor and sensory dysfunction in the left upper extremity, and had previously declined an MRI due to claustrophobia, so we will try to set him up outpatient with neurology and possibly obtain nerve conduction studies for further evaluation. He will need a new access for dialysis, but first I think he needs a moment to try to heal this left upper extremity somewhat. We will obtain a new right upper extremity vein mapping to try to ascertain if he has an option for right upper extremity access. IAN PANIAGUA MD Aug 04, 2019 12:09
--- NOTE | 2019-08-04 13:44 | IPNPDOC ---
Text Note Date of Service The patient was seen on 08/04/19. NOTE Subjective: -Ended up not going to the OR yesterday, going to the OR this morning with Dr. Paniagua and anticipating going home this week. -no complaints, sitting up in chair Objective: Physical Examination General Exam: No Acute Distress Eye Exam: PERRLA, EOMI, Sclera anicteric Neck Exam: Supple Chest Exam: trace scattered bibasilar crackles, otherwise clear, chest wall redness and tenderness much improved with clean small dressing over biopsy site. Heart Exam: Regular rate and rhythm, holosystolic murmur loudest at apex Abdomen Exam: Normoactive bowel sounds, soft, no tenderness Ext: Swollen LUE wound covered with wound vac Skin Exam: Resolved chest wall erythema with a small dressing over biospy site Neuro Exam: LUE minimally moving fingers otherwise unable to move it at all, otherwise moving all other extremities, cranial nerves 2-12 within normal limits Psych Exam: Positive: Mental status NL, AOx3 Labs: reviewed Imagin07/30/2019: CT chest with IV contrast: The skin cesario medially in the left upper extremity have been removed. The subcutaneous emphysema extending from the skin cesario into the left axilla and across the anterior left chest wall has significantly decreased. The soft tissue edema accompanying the subcutaneous emphysema has decreased. The mass in the anterolateral left chest wall has slightly increased in size, today measuring 6.4 x 4.2 cm. This previously measured 5.2 x 4.2 cm. The borderline enlarged mediastinal nodes and left axillary lymph nodes are unchanged. Chronic mosaic pattern in the lung apices is unchanged. There are probable splenomegaly, unchanged. Assessment # left upper extremity AV fistula with complication (wound infection (klebsiella)+ (MSSA) bacteremia) - Management per the vascular surgery service. - POD # 12 for removal of recently revised LUE AV fistula due to exsanguination, s/p 9 units PRBCs this hospitalization - POD # 6 s/p LUE debridement - Both B.Cxs from 07/21, and 07/22 no growth - declined MRI brachial plexus to r/o nerve injury to left arm due to claustrophobia - Dr. Peña onboard, MSSA + klebs, adequately covered by ancef, no ASTRID per Dr. Montanez to r/o valve veg with plan for 4 weeks of abx from date of last +BCx per Dr. Peña with end date of 08/18/2019 - Going to the OR with Dr. Paniagua for likely more debridement and re- evaluation Chest wall mass and subcutaneous emphysema: -Had follow up chest CT given the recent subcutaneous emphysema and chest wall collection/abscess --> while emphysema and surrounding inflammation has improved. anterolateral left chest mass has grown in size and is definitively described as solid in nature with no evidence of a fluid collection on speaking with radiology --> called IR that biopsied mass. -follow up anterior chest wall mass biopsy path report, still pending # CKD stage V hemodialysis dependent - inpatient HD mgmt per nephro # Anemia of Chronic kidney disease - on Aranesp with HD, Hgb stable following transfusion # MSSA Bacteremia - IV cefazolin (day # 14) - no ASTRID to r/o endorcarditis per Dr. Montanez due to c/f difficult airway, will treat with [address] Peña, with IV anfec to be dosed post HD and end date 08/18/2019. # Pancytopenia - likely due to acute infection plus vanco and underlying unspecified chronic BM suppression - CBC counts are stable - platelet counts have improved # GERD - controlled with omeprazole # DVT prophylaxis - SCDs Plan/VTE VTE Prophylaxis Ordered?: Yes VS,Fishbone, I+O VS, Fishbone, I+O Laboratory Tests 08/04/19 06:04 Red Blood Count 3.10 L, Mean Corpuscular Volume 100.3 H, Mean Corpuscular Hemoglobin 31.9, Mean Corpuscular Hemoglobin Concent 31.8 L, Red Cell Distribution Width 18.6 H, Calcium Level 8.4 L Vital Signs Date Time Temp Pulse Resp B/P (MAP) Pulse Ox O2 Delivery O2 Flow Rate FiO2 08/04/19 12:30 97.8 30 16 131/64 (86) 100 07/30/19 17:12 2 I&O- Last 24 Hours up to 6 AM 08/04/19 05:59 Intake Total 642 ml Output Total 335 ml Balance 307 ml JOANNE SÁNCHEZ MD Aug 04, 2019 13:44
[2019-08-04 14:00] VITALS: BP 122/70
--- NOTE | 2019-08-04 18:25 | IPN ---
DATE: 08/04/2019 Mr. Chen is doing well. He went to the operating room today with Dr. Paniagua for incision and drainage of his wound and wound vacuum-assisted closure (VAC) placement. He has no complaints. He is sitting up in his chair and would like to go home. PHYSICAL EXAMINATION: HEART: Normal S1, S2, regular with a holosystolic murmur 3/6 best heard at the left lower sternal border. LUNGS: Clear. No wheezes, rales or rhonchi. ABDOMEN: Soft, nontender. No hepatosplenomegaly. EXTREMITIES: Left upper extremity has a wound vacuum-assisted closure (VAC) and an JACQUES bandage to decrease edema. Limited range of motion of the arm with weak abduction and limited range of motion of the fingers. CHEST: Minimal erythema and tenderness of the chest wall. LABORATORY DATA: White count 2.8, hemoglobin 9.9, hematocrit 31.1, platelets 169. Sodium 138, potassium 4.1, chloride 101, bicarbonate 29, BUN 25, creatinine 4.36, glucose 75, calcium 8.4, CRP 10.4 down to 1.99. Wound culture was done from 08/04/2019, left arm, aerobic and anaerobic is pending. IMPRESSION: 1. Staphylococcus aureus bacteremia with septic thrombophlebitis. Culture of the graft had also Klebsiella and methicillin-sensitive Staphylococcus aureus (MSSA). The patient is on IV cefazolin with the appropriate antibiotics since 07/21/2019. He will need four weeks of IV antibiotics from negative cultures. Transesophageal echocardiogram could not be obtained due to difficulty with airways from tongue cancer surgery and radiation. The patient went to the operating room (OR) today for a wound vacuum-assisted closure (VAC) and further debridement. Wound closure and cultures are pending. 2. End-stage renal disease, on hemodialysis. The patient is fluid overloaded and will be going for an extra dialysis tomorrow. 3. Left upper extremity weakness. Dr. Paniagua recommended outpatient nerve conduction study. The patient refused MRI of the brachial plexus. PLAN: Continue physical therapy (PT)/occupational therapy (OT). Discussed with charge nurse the need for OT evaluation as well. The patient to continue IV cefazolin until 08/18/2019 which he came get at dialysis at a dose of 2 grams on weekdays and 3 grams on weekend day.
[2019-08-04] MEDS: PRAVASTATIN 20 MG TAB PO SCH (21:00)
[2019-08-04] MEDS: ceFAZolin SOD 2 GM in IV 1 EA IV SCH (21:13)
[2019-08-04 22:00] VITALS: BP 138/66
[2019-08-05] MEDS: oxyCODONE 5MG TAB PO PRN (05:20)
[2019-08-05] MEDS: LEVOTHYROXINE 100MCG TABLET (0.1MG) PO SCH (05:42)
[2019-08-05] MEDS: SODIUM CHLORIDE 0.9% INJ 10 ML SYR IV SCH (05:49)
[2019-08-05 06:00] VITALS: BP 152/72
[2019-08-05 06:43] LABS: HEMATOCRIT 31.5 % (42.0-52.0); MEAN CORPUSCULAR HEMOGLOBIN 32.8 pg (27.0-33.0); MEAN CORPUSCULAR HGB CONC 31.7 g/dl (32.0-36.5); MEAN CORPUSCULAR VOLUME 103.3 fl (80.0-96.0); PLATELET COUNT, AUTOMATED 164 10^3/uL (150-450); RED BLOOD COUNT 3.05 10^6/uL (4.30-6.10); WHITE BLOOD COUNT 2.6 10^3/uL (4.0-10.0)
[2019-08-05 07:03] LABS: C REACTIVE PROTEIN QUANTITATIV 1.01 MG/DL (0.00-0.30); CALCIUM LEVEL 8.3 MG/DL (8.8-10.2); CREATININE FOR GFR 5.55 MG/DL (0.70-1.30); GLOMERULAR FILTRATION RATE 11.2 (>49); POTASSIUM SERUM 4.1 MEQ/L (3.5-5.1)
--- NOTE | 2019-08-05 07:47 | IPNPDOC ---
Date Seen The patient was seen on 08/05/19. Progress Note Patient doing well postoperative day one status post left upper extremity excisional debridement washout and wound VAC replacement. We will follow up the cultures today. Continue IV antibiotics per infectious disease. Planning for possible discharge later today after dialysis. I would then like to see him back in a week or 2 and we will plan to schedule another OR washout and debridement with wound VAC replacement. The defect is so large, that once the granulation tissue heals in, he may need a skin graft, but this will be down the road a bit. He still has minimal movement in his left arm, although he says today he could move his pinkie which he could not do yesterday. We are working on getting him set up for outpatient neurology consult and nerve conduction studies. The patient has a poor appetite which is not helpful for wound healing, but he does agree to drink Nepro shake so we will give these to him frequently. Will follow with further discharge instructions later today if he is able to be discharged. VS, I&O, 24H, Fishbone Vital Signs/I&O Vital Signs Date Time Temp Pulse Resp B/P (MAP) Pulse Ox O2 Delivery O2 Flow Rate FiO2 08/05/19 06:00 98.3 75 20 152/72 (98) 98 07/30/19 17:12 2 I&O- Last 24 Hours up to 6 AM 08/05/19 06:00 Intake Total 1067 ml Output Total 200 ml Balance 867 ml Laboratory Data 24H LABS Laboratory Tests 2 08/05/19 06:06: Nucleated Red Blood Cells % (auto) 0.0, Anion Gap 10, Glomerular Filtration Rate 11.2L, Blood Urea Nitrogen 40#H, Creatinine 5.55H, Sodium Level 137, Potassium Level 4.1, Chloride Level 100, Carbon Dioxide Level 27, Calcium Level 8.3L, C- Reactive Protein, Quantitative 1.01H CBC/BMP Laboratory Tests 08/05/19 06:06 Red Blood Count 3.05 L, Mean Corpuscular Volume 103.3 H, Mean Corpuscular Hemoglobin 32.8, Mean Corpuscular Hemoglobin Concent 31.7 L, Red Cell Distribution Width 18.6 H, Calcium Level 8.3 L Microbiology Microbiology 08/04/19 Gram Stain - Final, Resulted 08/04/19 Wound Culture, Resulted Pending 08/04/19 Anaerobic Culture, Resulted Pending CEDERSTRAND,IAN L. MD Aug 05, 2019 07:47
[2019-08-05] MEDS ORDERED: OMEP-218 PO (09:05)
--- NOTE | 2019-08-05 10:02 | DS.PDOC ---
Discharge Summary General Date of Admission Jul 15, 2019 at 09:30 Date of Discharge 08/05/19 Discharge Summary PROCEDURES PERFORMED DURING STAY: Left upper extremity AV fistula revision 07/14/19. Dr. Vela Left basilic vein AV fistula revision secondary to bleeding 07/18/19. Dr. Vela PICC line right upper extremity 07/24/19. Dr. Vela. AV fistula left upper extremity revision secondary to bleeding left basilic vein transposition 07/24/19. Dr. Vela. Left upper extremity wound debridement and wound VAC placement 07/29/19. Dr. Vela. Ultrasound-guided biopsy chest wall mass 07/30/19. Pathology as noted below. Left upper extremity wound washout and wound VAC change 08/05/19. Dr. Paniagua. ADMITTING DIAGNOSES: 1. Left upper extremity AV fistula, status post revision 07/14/19 complicated with postoperative bleeding. 2. ESRD DISCHARGE DIAGNOSES: 1. Left upper extremity AV fistula, status post multiple revision, wound debridement and wound vac placement complicated with infection, bacteremia and recurrent postoperative bleeding. 2. Chest wall mass with subcutaneous emphysema 3. Chronic kidney disease stage 5/hemodialysis dependent 4. Anemia in chronic kidney disease. 5. MSSA bacteremia. 6. Pancytopenia 7. GERD 8. LUE weakness post operatively HISTORY OF PRESENT ILLNESS: The patient is a 64-year-old male with history of ESRD on hemodialysis as per nephrology who was scheduled for AVF revision LUE 07/14/[address] Vela admitted to hospital related to persistent post operative bleeding at AVF site. HOSPITAL COURSE: 1. Left upper extremity AV fistula status post multiple revision, wound debridement and wound vac placement complicated with recurrent bleeding, wound infection (klebsiella) and MSSA bacteremia. Patient was noted to have postoperative course complicated with recurrent ble eding requiring 9 units PRBCs, 1 u Plt this hospitalization. The patient is s/p LUE debridement with wound VAC placement and wound washout with wound vac change. Patient with MSSA bacteremia followed by infectious disease- Dr Peña. Both follow-up blood cultures from 07/21, and 07/22 no growth. The patient is recommended to continue with cefazolin after dialysis 2 g IV on weekdays and 3 g IV on weekend days. This is to be continued until 08/18/19. The patient declined MRI brachial plexus to r/o nerve injury to left arm due to claustrophobia, plan is to arrange neurology referral as outpatient for EMG/NCS of left upper extremity. TTE as below, ASTRID to rule out endocarditis per Dr. Montanez unable to be completed related to difficult airway. The patient is to continue with wound VAC of left upper extremity wound as per Dr Paniagua PN 08/05/19. Patient continues with hemodialysis as per right chest PermCath. 2. Chest wall mass and subcutaneous emphysema: Had follow up chest CT related to subcutaneous emphysema and chest wall collection/abscess. S/P US guided biopsy of chest wall mass. Pathology is noted below. 3. CKD stage V hemodialysis dependent Hemodialysis management as per nephrology 4. Anemia of Chronic kidney disease The patient has received Aranesp after dialysis as per nephrology. 5. Pancytopenia [place] likely due to acute infection plus vanco and underlying unspecified chronic BM suppression CBC counts are stable platelet counts have improved 6. GERD controlled with omeprazole 7. Postoperative left upper extremity weakness. Patient had declined MRI brachial plexus during hospitalization. Plan is to arrange neurology appointment following discharge for EMG/NCS of left upper extremity. DISCHARGE MEDICATIONS: Please see below. ALLERGIES: Please see below. PHYSICAL EXAMINATION ON DISCHARGE: VITAL SIGNS: Please see below. GENERAL: The patient is an hemodialysis currently. He is awake and alert. No acute distress. Neck Exam: Supple Chest Exam: clean small dressing over biopsy site. Heart Exam: Regular rate and rhythm, Abdomen Exam: soft, no tenderness Ext: Swollen LUE wound covered with wound vac, mild surrounding erythema. Mild edema of left upper extremity. Left upper extremity weakness noted. Neuro Exam: LUE minimally moving fingers otherwise unable to move it at all, otherwise moving all other extremities Psych Exam: AOx3 LABORATORY DATA: Please see below. Pathology Left chest wall mass Left breast/chest wall mass, biopsy: Benign breast tissue showing areas of fibrosis with rare dilated ducts. 08/01/19 - 1157 IMAGING: CXR No acute infiltrate. Electronically Signed by Tim Person MD 07/17/2019 08:[address] Impression: There is are skin cesario in the left upper extremity medially. There is subcutaneous emphysema extending from the suture line superiorly into the axilla and across the anterolateral left chest wall in the subclavian area. In addition there is a 5.2 cm subcutaneous soft tissue mass in the anterolateral left chest wall. There are borderline enlarged mediastinal and axillary lymph nodes. Probable splenomegaly. Bilateral renal cortical atrophy. Chronic mosaic pattern in the apices of the upper lobes bilaterally. Some of which are calcified, not significantly changed from the prior study. Electronically Signed by Tim Montilla MD 07/21/2019 05:[address] of the chest with IV contrast: Comparison is 07/21/2019. The skin cesario medially in the left upper extremity have been removed. The subcutaneous emphysema extending from the skin cesario into the left axilla and across the anterior left chest wall has significantly decreased. The soft tissue edema accompanying the subcutaneous emphysema has decreased. The mass in the anterolateral left chest wall has slightly increased in size, today measuring 6.4 x 4.2 cm. This previously measured 5.2 x 4.2 cm. The borderline enlarged mediastinal nodes and left axillary lymph nodes are unchanged. Chronic mosaic pattern in the lung apices is unchanged. There are probable splenomegaly, unchanged. Electronically Signed by Tim Montilla MD 07/30/2019 09:12 A TTE CONCLUSIONS: 1. Degenerative, calcific aortic valve disease with severe focal thickening and focal calcific deposits of a 3-cuspid aortic valve. No effusion of the aortic cusps. Moderate aortic stenosis and mild aortic regurgitation. 2. Mild concentric left ventricle hypertrophy. Normal regional LV wall motion and wall thickening. Normal LV systolic function. LVEF 70% by visual estimate. Normal LV diastolic function for age. 3. Mild left atrial dilatation. 4. Moderate mitral annular calcification. No mitral stenosis or mitral regurgitation. 5. Otherwise normal appearing echocardiogram Doppler findings. ASTRID 08/04/19 to rule out endocarditis unable secondary to difficult airway. MRI brachial plexus for evaluation of left upper extremity weakness. Patient declined secondary to claustrophobia. PROGNOSIS: Guarded ACTIVITY:As tolerated. DIET: renal diet DISCHARGE PLAN: Tentative plan for discharge 08/05/19 after completion of hemodialysis if cleared as per nephrology. Plan for discharge today also if patient has home wound VAC available for discharge. Homecare to assist with wound VAC management and wound VAC changes every Sunday. Wound VAC instructions as per Dr. Paniagua as per PN 08/05/19. Plan to arrange outpatient wound care with Dr. Mathur for continued management of left upper extremity wound. Continue outpatient follow-up with nephrology for hemodialysis management Sunday//Sunday. Continue IV antibiotics as per infectious disease after dialysis cefazolin 2 g IV weekdays and 3 g IV on weekend days. This should be continued until 08/18/19 as per infectious disease. Plan to discontinue PICC line at discharge as per infectious disease. Patient continues dialysis with PermCath right chest. Arrange outpatient referral to neurology for EMG/NCS of left upper extremity to further assess left upper extremity weakness. Patient declined MRI brachial plexus during hospital stay. ITEMS TO FOLLOWUP ON ON OUTPATIENT: 1. Continue with IV Cefazolin 2 g IV on weekdays after dialysis and 3 g IV on weekend days after dialysis as instructed per infectious disease, Dr. Peña, to be continued until 08/18/19. Spoke with [facility] at [facility] to make them aware. Relayed to Nephrology, Dr Norman. Plan is confirmed with Dr Peña on this date. 2. Ensure patient has referral to neurology for EMG/NCS of left upper extremity. I have spoken with the patient's PCP, Dr. Alves, who will assist with facilitating referral to neurology as outpatient if needed. 3. Continue with wound VAC changes left upper extremity every Sunday. Ensure patient is scheduled with Dr. Mathur for continued outpatient wound management. Ensure patient has home care management for wound VAC changes. Wound VAC instructions as per Dr. Paniagua as per PN 08/05/19. DISCHARGE CONDITION: Stable. TIME SPENT ON DISCHARGE: Greater than 30 minutes. Vital Signs/I&Os Vital Signs Date Time Temp Pulse Resp B/P (MAP) Pulse Ox O2 Delivery O2 Flow Rate FiO2 08/05/19 06:00 98.3 75 20 152/72 (98) 98 07/30/19 17:12 2 I&O- Last 24 Hours up to 6 AM 08/05/19 05:59 Intake Total 830 ml Output Total 200 ml Balance 630 ml Laboratory Data Labs 24H Laboratory Tests 2 08/05/19 06:06: Nucleated Red Blood Cells % (auto) 0.0, Anion Gap 10, Glomerular Filtration Rate 11.2L, Blood Urea Nitrogen 40#H, Creatinine 5.55H, Sodium Level 137, Potassium Level 4.1, Chloride Level 100, Carbon Dioxide Level 27, Calcium Level 8.3L, C- Reactive Protein, Quantitative 1.01H CBC/BMP Laboratory Tests 08/05/19 06:06 Red Blood Count 3.05 L, Mean Corpuscular Volume 103.3 H, Mean Corpuscular Hemoglobin 32.8, Mean Corpuscular Hemoglobin Concent 31.7 L, Red Cell Distribution Width 18.6 H, Calcium Level 8.3 L Microbiology Microbiology 08/04/19 Gram Stain - Final, Resulted 08/04/19 Wound Culture, Resulted Pending 08/04/19 Anaerobic Culture, Resulted Pending Discharge Medications Scheduled Ascorbic Acid (Vitamin C) 500 Mg Tablet, 500 MG PO DAILY, (Reported) Aspirin (Aspirin EC) 81 Mg Tab, 81 MG PO DAILY, (Reported) Bisacodyl (Bisacodyl) 5 Mg Tab, 5 MG PO DAILY, (Reported) Cholecalciferol (Vitamin D3) (Vitamin D3) 1,000 Unit Tablet, 1,000 UNITS PO DAILY, (Reported) Levothyroxine Sodium (Levothyroxine Sodium) 200 Mcg Tablet, 200 MCG PO DAILY, (Reported) 300MCG TOTAL DOSE Levothyroxine Sodium (Synthroid) 50 Mcg Tablet, 100 MCG PO DAILY, (Reported) 300MCG TOTAL DOSE Multivitamins (Thera M Plus Tablet) 1 Each Tablet, 1 TAB PO DAILY, (Reported) Nut.tx.imp.renal Fxn,Lac-Reduc (Nepro Carb Steady) 237 Ml Liquid, 1 LIQ PO 7XD, (Reported) Omeprazole (Omeprazole) 20 Mg Capsule.dr, 40 MG PO DAILY Pravastatin Sodium (Pravastatin Sodium) 20 Mg Tab, 20 MG PO QHS, (Reported) Scheduled PRN Oxycodone HCl/Acetaminophen (Oxycodon-Acetaminophen 7.5-325) 1 Tab Tab, 1 TAB PO Q6H PRN for PAIN, (Reported) Allergies Coded Allergies: hydrochlorothiazide (Verified Allergy, Unknown, UNKNOWN REACTION from [facility], 02/14/19) taken 30 yrs ago methyldopa (Verified Allergy, Unknown, UNKNOWN REACTION from [facility], 01/29/19) Palma Medel Aug 05, 2019 09:46
--- NOTE | 2019-08-05 11:49 | IPNPDOC ---
Date Seen The patient was seen on 08/05/19. Progress Note Left upper extremity wound VAC instructions: 1. Take care when removing the wound VAC. We may need to irrigate with copious amounts of saline as he remove it to prevent bleeding. We will send Surgicel home with the patient and this can be placed over any bleeding areas and gentle pressure to help with hemostasis. The irrigating with copious amounts of saline as she gently remove it will be helpful. There is one single sponge that was placed while the patient was inpatient, it is a spiral, it should all come out in one piece. Please do not add any sponge to the tunnels that could get left behind. Please keep everything in 1 large piece of possible. 2. Clean the area with copious amounts of saline. No sting skin prep around the skin. Use a spiral piece of black foam and gently place in the undermined areas circumferentially as well as in the central area. Cover with drape and placed in -125 mmHg low continuous suction. 3. Intermittent Solis wrap from the hand to the upper arm is helpful to alleviate some of the swelling. It should be fairly snug around the hand and forearm, but not tight around the upper arm and be careful not to make it tight like a tourniquet around the wound VAC. It tends to roll down, and then circulation. 4. If there is any problem where you cannot replace the wound VAC, I recommend kerlix damp to dry packed into all the surrounding areas in one piece sono gauze gets left behind and then a dry cover. Call our office for questions or concerns. 5. I plan to see the patient back in 2-3 weeks for another OR washout and possible debridement of any nonviable skin or tissue. VS, I&O, 24H, Fishbone Vital Signs/I&O Vital Signs Date Time Temp Pulse Resp B/P (MAP) Pulse Ox O2 Delivery O2 Flow Rate FiO2 08/05/19 06:00 98.3 75 20 152/72 (98) 98 07/30/19 17:12 2 I&O- Last 24 Hours up to 6 AM 08/05/19 06:00 Intake Total 1067 ml Output Total 200 ml Balance 867 ml Laboratory Data 24H LABS Laboratory Tests 2 08/05/19 06:06: Nucleated Red Blood Cells % (auto) 0.0, Anion Gap 10, Glomerular Filtration Rate 11.2L, Blood Urea Nitrogen 40#H, Creatinine 5.55H, Sodium Level 137, Potassium Level 4.1, Chloride Level 100, Carbon Dioxide Level 27, Calcium Level 8.3L, C- Reactive Protein, Quantitative 1.01H CBC/BMP Laboratory Tests 08/05/19 06:06 Red Blood Count 3.05 L, Mean Corpuscular Volume 103.3 H, Mean Corpuscular Hemoglobin 32.8, Mean Corpuscular Hemoglobin Concent 31.7 L, Red Cell Distribution Width 18.6 H, Calcium Level 8.3 L Microbiology Microbiology 08/04/19 Gram Stain - Final, Resulted 08/04/19 Wound Culture, Resulted Pending 08/04/19 Anaerobic Culture, Resulted Pending IAN JOHNSON MD Aug 05, 2019 11:49
[2019-08-05] MEDS ORDERED: HEPARIN 1,000 UNITS/ML 10ML VIAL (FOR RADIOLOGY& DIALYSIS ONLY) XX ONE (12:00)
[2019-08-05 12:30] VITALS: BP 120/74
[2019-08-05] MEDS: ASCORBIC ACID 500 MG TAB PO SCH (13:00)
[2019-08-05] MEDS: ASPIRIN 81 MG ENTERIC TAB PO SCH (13:00)
[2019-08-05] MEDS: MULTIVITAMINS/MINERALS THERAP 1 TAB PO SCH (13:00)
[2019-08-05] MEDS: BISACODYL 5 MG TAB PO SCH (13:00)
[2019-08-05] MEDS: OMEPRAZOLE 20 MG CAP PO SCH (13:00)
[2019-08-05] MEDS: VITAMIN D 1,000 INTERNATIONAL UNITS TABLET PO SCH (13:00)
--- NOTE | 2019-08-05 20:10 | IPN ---
DATE: 08/05/2019 SUBJECTIVE: The patient was seen and examined the bedside today morning during hemodialysis. He was tolerating the hemodialysis procedure well. He got the washout and debridement of the left upper arm extremity wound. He still has a wound vacuum-assisted closure (VAC) on the wound; otherwise, the patient is stable, and he reports that he is getting ready to be discharged today. OBJECTIVE: Vital signs: Temperature is 98 degrees Fahrenheit, blood pressure 120/74, pulse is 85, respiratory of 16, saturating 100% on room air. Intake and output: There is no urine output recorded. Estimated blood loss was 200 mL yesterday with the procedure. Weight in the bed scale is not available. PHYSICAL EXAMINATION: GENERAL: The patient is awake, alert, oriented times three, lying in bed getting hemodialysis done no apparent distress. HEAD AND NECK: Extraocular muscles intact. Pupils equally round and reactive to light. Old surgical scar in the chin and neck visible. Neck is supple. He has a right internal jugular (IJ) tunneled hemodialysis catheter being used for dialysis. CARDIOVASCULAR: S1, S2 regular rate. Edema 2+ of the bilateral lower extremities. RESPIRATORY: Chest is clear to auscultation bilaterally. Bilateral equal air entry. No rales or rhonchi. ABDOMEN: Soft. Positive bowel sounds. MUSCULOSKELETAL: He has a shortened right lower extremity. Left upper extremity wound VAC is noted. CENTRAL NERVOUS SYSTEM: No focal deficit. The patient is oriented times three and follows commands. LABORATORY REVIEW: CBC showed WBC 2.6, hemoglobin 10, platelets are 164. BMP showed sodium 137, potassium 4.1, chloride 100, bicarbonate 27, BUN 40, creatinine is 5.5. C-reactive protein is 1.01. CURRENT INPATIENT MEDICATIONS: The patient's medications were all reviewed by me. There is no change in the medications today as compared with yesterday. ASSESSMENT AND PLAN: 1. End-stage renal disease, on hemodialysis. The patient is being dialyzed according to his regular schedule. I will try to remove at least 2.5-3 kg of fluid. 2. Anemia and end-stage renal disease. Continue current dose of Aranesp. Hemoglobin is within the acceptable range. Rest of the anemia management will be done as outpatient. 3. Lower extremity edema. The patient got extra session of ultrafiltration done. He is getting more fluid removed today. Rest of the edema management will be done as outpatient. 4. Left upper arm arteriovenous (AV) fistula site infection and Staphylococcus aureus bacteremia. The patient could not get the transesophageal echocardiogram done. He has to finish the IV antibiotic course. Last dose will be on August 18. He will get 2 grams of IV Ancef on Tuesdays and and 3 grams on Saturdays. DISPOSITION: It is okay to discharge the patient from nephrology standpoint if his home wound VAC is arranged by vascular surgery.
[2019-09-22] MEDS ORDERED: LOSA50TA88 PO (07:44)
== END 2019-08-05 16:26 | disposition home health service (06) | DRG 252 ==
LOC: M SDC 14:42 → M MS4PR 20:53 → M SDC 07-15 09:30 → M ICU 07-15 17:42 → M PCU 07-21 16:29 → M ICU 07-24 05:53 → M MSPAV 07-26 14:58
PROVIDERS: ADMIT Surgery Vascular Surgery; ATTEND Surgery Vascular Surgery
PROC: 05WY07Z Revision of Autologous Tissue Substitute in Upper Vein, Open Approach (ICD-10-PCS; principal; 2019-07-15)
PROC: 0HXCXZZ Transfer Left Upper Arm Skin, External Approach (ICD-10-PCS; 2019-07-15)
PROC: 30233N1 Transfusion of Nonautologous Red Blood Cells into Peripheral Vein, Percutaneous Approach (ICD-10-PCS; 2019-07-15)
PROC: 30233R1 Transfusion of Nonautologous Platelets into Peripheral Vein, Percutaneous Approach (ICD-10-PCS; 2019-07-16)
PROC: 5A1D70Z Performance of Urinary Filtration, Intermittent, Less than 6 Hours Per Day (ICD-10-PCS; 2019-07-17)
PROC: 0X390ZZ Control Bleeding in Left Upper Arm, Open Approach (ICD-10-PCS; 2019-07-18)
PROC: 05LC0ZZ Occlusion of Left Basilic Vein, Open Approach (ICD-10-PCS; 2019-07-24)
PROC: 02HV33Z Insertion of Infusion Device into Superior Vena Cava, Percutaneous Approach (ICD-10-PCS; 2019-07-24)
PROC: B5181ZA Fluoroscopy of Superior Vena Cava using Low Osmolar Contrast, Guidance (ICD-10-PCS; 2019-07-24)
PROC: B54MZZA Ultrasonography of Right Upper Extremity Veins, Guidance (ICD-10-PCS; 2019-07-24)
PROC: 0WB83ZX Excision of Chest Wall, Percutaneous Approach, Diagnostic (ICD-10-PCS; 2019-07-30)
PROC: 0KB80ZZ Excision of Left Upper Arm Muscle, Open Approach (ICD-10-PCS; 2019-07-31)
PROC: 0HBCXZZ Excision of Left Upper Arm Skin, External Approach (ICD-10-PCS; 2019-08-04)
DX: T82.838A Hemorrhage due to vascular prosthetic devices, implants and grafts, initial encounter (principal); N18.6 End stage renal disease; D61.811 Other drug-induced pancytopenia; A41.9 Sepsis, unspecified organism; D61.818 Other pancytopenia; D62 Acute posthemorrhagic anemia; T86.12 Kidney transplant failure; E46 Unspecified protein-calorie malnutrition; L76.22 Postprocedural hemorrhage of skin and subcutaneous tissue following other procedure; I97.638 Postprocedural hematoma of a circulatory system organ or structure following other circulatory system procedure; T82.868A Thrombosis due to vascular prosthetic devices, implants and grafts, initial encounter; Y83.1 Surgical operation with implant of artificial internal device as the cause of abnormal reaction of the patient, or of later complication, without mention of misadventure at the time of the procedure; T82.7XXA Infection and inflammatory reaction due to other cardiac and vascular devices, implants and grafts, initial encounter; T81.82XA Emphysema (subcutaneous) resulting from a procedure, initial encounter; B96.1 Klebsiella pneumoniae [K. pneumoniae] as the cause of diseases classified elsewhere; R01.1 Cardiac murmur, unspecified; B95.61 Methicillin susceptible Staphylococcus aureus infection as the cause of diseases classified elsewhere; D63.1 Anemia in chronic kidney disease; E89.0 Postprocedural hypothyroidism; K21.9 Gastro-esophageal reflux disease without esophagitis; G47.00 Insomnia, unspecified; Z99.2 Dependence on renal dialysis; Z85.850 Personal history of malignant neoplasm of thyroid; Z87.891 Personal history of nicotine dependence; Z85.828 Personal history of other malignant neoplasm of skin; Z79.82 Long term (current) use of aspirin; Z79.891 Long term (current) use of opiate analgesic; Z79.899 Other long term (current) drug therapy; Z98.41 Cataract extraction status, right eye; Z98.42 Cataract extraction status, left eye; T82.898A Other specified complication of vascular prosthetic devices, implants and grafts, initial encounter

== ENCOUNTER → 2019-08-12 | Outpatient (REF) | payer MEDICARE, OTHER ==
[~2019-08-12] MED LIST changes: -BUPIVACAINE HCL 0.5% 10 ML VIAL As Ordered ONE; -HEPARIN SOD (PORCINE) 5000 UNITS/ML VIAL As Ordered ONE; +LEVO250T12 PO; -LIDOCAINE 2% MDV 20 ML VIAL As Ordered ONE; +OMEP-218 PO
[2019-08-12 18:23] LABS: BASO % 0.4 % (0.0-1.0); EOS % 0.2 % (0.0-3.0); HEMATOCRIT 35.8 % (42.0-52.0); HEMOGLOBIN 11.1 g/dl (13.5-17.5); LYMPH % 4.2 % (24.0-44.0); MEAN CORPUSCULAR HEMOGLOBIN 32.7 pg (27.0-33.0); MEAN CORPUSCULAR VOLUME 105.6 fl (80.0-96.0); MONO # 0.3 10^3/uL (0.0-0.8); MONO % 5.3 % (0.0-5.0); NEUTROPHILS # 4.9 10^3/uL (1.5-8.5); PLATELET COUNT, AUTOMATED 198 10^3/uL (150-450); RED BLOOD COUNT 3.39 10^6/uL (4.30-6.10); WHITE BLOOD COUNT 5.5 10^3/uL (4.0-10.0)
[2019-08-12 19:10] LABS: LYMPH # 0.2 10^3/uL (1.5-5.0)
[2019-08-12 19:11] LABS: ERYTHROCYTE SEDIMENTATION RATE 79 mm/hr (0-20)
== END ==
LOC: M LAB REF 17:02
PROVIDERS: ATTEND Physician Assistant
DX: I87.312 Chronic venous hypertension (idiopathic) with ulcer of left lower extremity (principal)

== ENCOUNTER 2019-08-21 16:57 | Emergency (ER) | payer MEDICARE, OTHER ==
[~2019-08-21] VITALS: Ht 170.2 cm; Wt 77.3 kg
[~2019-08-21 16:57] MED LIST changes: -LEVO250T12 PO
[2019-08-21] MEDS ORDERED: LEVO250T12 PO (17:09)
[2019-08-21 18:24] LABS: HEMOGLOBIN 8.5 g/dl (13.5-17.5); MEAN CORPUSCULAR HEMOGLOBIN 32.4 pg (27.0-33.0); MEAN CORPUSCULAR HGB CONC 31.5 g/dl (32.0-36.5); MEAN CORPUSCULAR VOLUME 103.1 fl (80.0-96.0); PLATELET COUNT, AUTOMATED 291 10^3/uL (150-450); RED BLOOD COUNT 2.62 10^6/uL (4.30-6.10); WHITE BLOOD COUNT 3.3 10^3/uL (4.0-10.0)
[2019-08-21 18:41] LABS: CREATININE FOR GFR 2.6 MG/DL (0.70-1.30); GLOMERULAR FILTRATION RATE 26.8 (>49); POTASSIUM SERUM 3.8 MEQ/L (3.5-5.1)
--- NOTE | 2019-08-21 19:56 | REPVR ---
PROCEDURE INFORMATION: Exam: US Duplex Left Upper Extremity Veins, Limited Exam date and time: 08/21/2019 7:24 PM Clinical history: 64 years old, male; Edema, localized; Upper extremity, left TECHNIQUE: Imaging protocol: Real-time Duplex ultrasound of the Left Upper Extremity with 2-D vera scale, color Doppler flow and spectral waveform analysis with image documentation. Limited exam focused on the left upper extremity veins. COMPARISON: US VEIN MAPPING PRE AVF 07/24/2019 7:09 PM FINDINGS: Left deep veins: Bandage obscures the distal upper arm. Axillary and brachial veins are patent throughout without thrombus. Normal Doppler waveforms. Normal compressibility and/or augmentation response. Visualized internal jugular and subclavian veins are patent. Left superficial veins: Unremarkable. Visualized cephalic and basilic veins are patent without thrombus. Soft tissues: Mild edema. IMPRESSION: No acute findings. No evidence of deep vein thrombosis. Electronically signed by: Zana Tanner On 08/21/2019 19:56:19 PM
[2019-08-21 20:31] VITALS: BP 130/82
== END 2019-08-21 20:36 | disposition home or self-care (01) ==
LOC: M ED 16:57
DX: R60.0 Localized edema (principal); E11.9 Type 2 diabetes mellitus without complications; I12.0 Hypertensive chronic kidney disease with stage 5 chronic kidney disease or end stage renal disease; N18.6 End stage renal disease; Z99.2 Dependence on renal dialysis; Z94.0 Kidney transplant status; Z79.899 Other long term (current) drug therapy; Z88.8 Allergy status to other drugs, medicaments and biological substances

== ENCOUNTER → 2019-08-25 | Outpatient (REF) | payer MEDICARE, OTHER ==
[~2019-08-25] MED LIST changes: +LEVO250T12 PO
[2019-08-25 12:22] LABS: BASO % 0.5 % (0.0-1.0); HEMATOCRIT 33.7 % (42.0-52.0); HEMOGLOBIN 10.6 g/dl (13.5-17.5); LYMPH # 0.6 10^3/uL (1.5-5.0); LYMPH % 14.4 % (24.0-44.0); MEAN CORPUSCULAR HEMOGLOBIN 32.2 pg (27.0-33.0); MEAN CORPUSCULAR HGB CONC 31.5 g/dl (32.0-36.5); MEAN CORPUSCULAR VOLUME 102.4 fl (80.0-96.0); MONO # 0.2 10^3/uL (0.0-0.8); MONO % 4.5 % (0.0-5.0); NEUTROPHILS # 3.2 10^3/uL (1.5-8.5); NEUTROPHILS % 78.9 % (36.0-66.0); PLATELET COUNT, AUTOMATED 344 10^3/uL (150-450); RED BLOOD COUNT 3.29 10^6/uL (4.30-6.10)
[2019-08-25 12:48] LABS: ERYTHROCYTE SEDIMENTATION RATE 106 mm/hr (0-20)
== END ==
LOC: M SFHCPLAZ 10:32
PROVIDERS: ATTEND Internal Medicine Infectious Disease
DX: A49.01 Methicillin susceptible Staphylococcus aureus infection, unspecified site (principal)
CPT/HCPCS: 36415; 85025; 85652; 86140; G0463

== ENCOUNTER → 2019-09-22 | Outpatient (CLI) | payer MEDICARE, OTHER ==
[~2019-09-22] MED LIST changes: +HEPARIN 1,000 UNITS/ML 10ML VIAL (FOR RADIOLOGY& DIALYSIS ONLY) As Ordered ONE; +ISOVUE-300 61% 50ML VIAL (Q9967) As Ordered ONE; +LIDOCAINE 1% MDV 20ML VIAL As Ordered ONE; +MIDAZOLAM INJ 2 MG/2 ML VIAL (J2250) As Ordered ONE; +fentaNYL 100 MCG/2 ML INJECTION (J3010) As Ordered ONE
--- NOTE | 2019-09-22 09:06 | ROOPDOC ---
[facility] Report Of Operation Report of Operation DATE OF PROCEDURE: 09/22/19 PREPROCEDURE DIAGNOSES: Atherosclerosis in the [place] vessels with nonhealing wound left lower extremity. POSTPROCEDURE DIAGNOSES: Same. PROCEDURE: 1. Ultrasound-guided access right common femoral artery 2. Aortoiliofemoral arteriogram with left lower extremity runoff 3. 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 Completion arteriograms 5. Mynx closure right common femoral artery SURGEON: Ian Paniagua MD ANESTHESIA: Local anesthesia 8 mL lidocaine. Monitored intravenous conscious sedation was supervised by Dr. Paniagua. The patient was independently monitored by registered nurse decided Department of radiology using automated blood pressure, EKG, and pulse oximetry. The detailed sedation record was permanently Moss the hospital information system. The following is the brief sedation record: Start time 07:55, stop time 08:53, fentanyl 50 g IV, Versed 1 mg IV. INDICATION FOR PROCEDURE: Mr. Chen is a very pleasant 64-year-old gentleman with a nonhealing wound of the left lower extremity and arterial insufficiency. Noninvasive arterial duplex reveals heavy calcification and ectasia of the iliac and femoral inflow, but no significant stenoses however there is severe stenoses and near occlusion of the posterior tibial artery with calcification of the anterior tibial and peroneal with decent flow. Risks benefits and alternatives to an arteriogram left lower extremity and potential intervention were explained. Informed consent was obtained INTERPRETATION: 1. Although the iliac vessels are somewhat tortuous, heavily calcified and mildly ectatic, they are widely patent with no flow-limiting stenoses. 2. The common femoral artery is heavily calcified but widely patent. There is good runoff into the profunda and the superficial femoral artery which is also heavily calcified but patent. No flow-limiting stenoses are noted, and there is also good flow through the popliteal artery. 3. In the tibial system, there is widely patent flow through the anterior tibial artery although it is heavily calcified and mildly ectatic, there is no flow- limiting stenosis. There is also good flow through the tibioperoneal trunk and the peroneal artery. These are the main runoff to the foot. The posterior tibial artery has near occlusive lesion throughout its length and includes near the ankle and has some reconstitution through collaterals from the other tibial vessels into the foot. 4. We were able to cross through to the distal ankle and the posterior tibial artery, but could not cross into the plantar vessels. We angioplasty the length of the posterior tibial artery with a 2.5 x 220 Suresh balloon for three- minute inflations across the length of the vessel 2. Following this, there was widely patent flow down to the ankle with collateral outflow into the foot. No extravasation dissection or embolization was noted on final imaging. REPORT OF OPERATION: The patient was brought to the angiographic suite in stable condition. His bilateral groins were prepped and draped in sterile fashion. A timeout was performed. Local anesthesia was administered to the skin and subcutaneous tissue over the right common femoral artery. A microneedle was used to access the right common femoral artery under ultrasound guidance. A wire was passed through this access under fluoroscopic guidance the needle was removed. A micro-sheath was placed. We then passed a Glidewire into the aorta and exchange the sheath for 6 [place] sheath. The sheath was flushed with saline. We then advanced a catheter over the wire into the distal aorta and aortoiliofemoral arteriogram was performed. Please see interpretation above. We then selected the iliac system on the left up and over the bifurcation with a Glidewire and the Omni flushed catheter. We advanced the catheter into the common femoral artery and femoral arteriogram was performed. We then selected the superficial femoral artery and advanced the catheter and the superficial femoral artery and distal runoff was performed. Please see interpretations above. Through the catheter we placed an Amplatz superstiff wire to help straighten out the tortuous iliac system and then exchanged a short 6 [place] sheath for 90 cm destination 6 [place] sheath and flushed the sheath with saline. We then exchanged the wire for an O18 Glidewire advantage which was navigated down through the popliteal artery into the posterior tibial artery under fluoroscopic guidance. An O18 [place] was advanced over the wire and we utilized [place] in the wire to cross through to the distal ankle. Extensive attempts were made to cross into the plantar vessel across the ankle, but this was unsuccessful. We were not able to find the true lumen across the ankle. We therefore angioplasty the length of the posterior tibial artery for three-minute inflations, and following this there was still not adequate runoff at the ankle to keep this open. We then advanced the balloon in the wire a bit further across the medial malleolus and were able to angioplasty again, and after this there was good outflow into the collateral system at the ankle. There was rapid flow through all 3 tibial vessels and collateral filling at the ankle was markedly improved across into the foot. No extravasation, embolization, or dissection was noted on final imaging. We exchange the wire for an O35 wire and exchange the sheath for short 6 [place] sheath and flushed the sheath with saline. A Mynx closure device was deployed with good hemostasis. Pressure was held for 10 minutes and the patient was taken to recovery in stable condition. The foot was warm and well-perfused with a biphasic signal at the posterior tibial artery postprocedure. ESTIMATED BLOOD LOSS: Approximately 5 mL. COMPLICATIONS: None. PLAN: Okay for patient to resume all home medications. We'll see him back in a week to see how he is doing with his perfusion left lower extremity and check his right groin access site. IAN PANIAGUA MD Sep 22, 2019 09:06
[2019-09-22 13:00] VITALS: BP 188/91
== END ==
LOC: M IRPRO 07:44
PROVIDERS: ATTEND Surgery Vascular Surgery
DX: I70.245 Atherosclerosis of native arteries of left leg with ulceration of other part of foot (principal); L97.929 Non-pressure chronic ulcer of unspecified part of left lower leg with unspecified severity; I70.92 Chronic total occlusion of artery of the extremities
CPT/HCPCS: 37228; 75710; 99152; 99153; C1725; C1729; C1760; C1769; C1887; C1894; J2250; J3010; Q9967

== ENCOUNTER → 2019-10-01 | Outpatient (CLI) | payer MEDICARE, OTHER ==
[~2019-10-01] MED LIST changes: -HEPARIN 1,000 UNITS/ML 10ML VIAL (FOR RADIOLOGY& DIALYSIS ONLY) As Ordered ONE; -ISOVUE-300 61% 50ML VIAL (Q9967) As Ordered ONE; -LIDOCAINE 1% MDV 20ML VIAL As Ordered ONE; -MIDAZOLAM INJ 2 MG/2 ML VIAL (J2250) As Ordered ONE; +OXYC5SOL11 PO; -OXYC5SOL15 PO; -fentaNYL 100 MCG/2 ML INJECTION (J3010) As Ordered ONE
--- NOTE | 2019-10-01 14:08 | REP ---
RIGHT UPPER EXTREMITY DUPLEX DOPPLER ARTERIAL AND VENOUS ULTRASOUND for ARTERIOVENOUS FISTULA MAPPING: Real-time ultrasound evaluation and duplex Doppler interrogation of right upper extremity arterial and venous systems is performed to evaluate for AV fistula placement. Subclavian and jugular veins are patent with normal Doppler spectral waveforms. Large axillary, brachial and ulnar arteries are visualized. Cephalic vein is not visualized distal to the antecubital fossa. Multiple obstructed calcified veins are seen in the antecubital fossa. On the right, basilic vein measures 5 mm at the upper humerus, 4 mm at the lower humerus, 3 mm in the upper forearm and 2 mm in the lower forearm and wrist. Right cephalic vein measures 2 mm at the level of the humerus and 3 mm just distal to the cubital fossa, not visualized distal to that. Normal flow velocities and Doppler spectral waveforms are seen throughout the right upper extremity arterial system. The right axillary and brachial arteries measure 8 mm. The right radial artery measures 3 mm. The right ulnar artery measures 5 mm. Electronically Signed by Tim Person MD 10/01/2019 02:16 P
== END ==
LOC: M RAD 11:33
PROVIDERS: ATTEND Physician Assistant
DX: Z01.818 Encounter for other preprocedural examination (principal); N18.6 End stage renal disease
CPT/HCPCS: 15271; G0365; Q4121

== ENCOUNTER → 2019-10-30 | Outpatient (CLI) | payer MEDICARE, OTHER ==
--- NOTE | 2019-10-30 13:53 | REPVR ---
PROCEDURE INFORMATION: Exam: CT Cervical Spine Without Contrast Exam date and time: 10/30/2019 9:34 AM Age: 64 years old Clinical indication: Radiculopathy; Cervical region; Additional info: Radiculopathy of c region TECHNIQUE: Imaging protocol: Computed tomography images of the cervical spine without contrast. Radiation optimization: All CT scans at this facility use at least one of these dose optimization techniques: automated exposure control; mA and/or kV adjustment per patient size (includes targeted exams where dose is matched to clinical indication); or iterative reconstruction. COMPARISON: [facility] - CT Chest with contrast 07/30/2019 8:10:09 AM (report not provided) FINDINGS: Tubes, catheters and devices: A right IJ central line is partially visualized. Vertebrae: Vertebral body heights are intact. Alignment is maintained. No acute fracture is identified. There are multifocal osseous lucencies, suggestive of lytic lesions, largest measuring up to 11 mm at the base of the dens, with disruption of the anterior cortex. Some smaller lesions at multiple additional levels are associated with cortical erosion as well. Discs/Spinal canal/Neural foramina: There is multilevel spondylosis with variable osteophytic encroachment of several neural foramina. CT is not optimal for the evaluation of the discs, neural foramina or spinal canal or cord. There may be spinal stenosis at C3-4. Other bones/joints: The bones appear osteopenic. Prevertebral Space: The prevertebral soft tissues are not significantly swollen. Lungs: As on the prior chest CT, there are centrilobular groundglass nodules at the lung apices, along with very dense nodularity at the right apex. Pleural space: No apical pneumothorax is identified. Vasculature: Atherosclerotic vascular calcifications are noted. IMPRESSION: 1. Spondylosis with potential spinal stenosis at C3-4. The discs and integrity of the cord could be better evaluated by means of MRI as clinically appropriate. 2. Apparent osteopenia. 3. Multifocal osseous lucencies, suggestive of lytic lesions, possibly metastases. Correlate regarding possible metastatic disease clinically a bone scan. 4. Apical pulmonary changes partially visualized, as on chest CT of 07/30/19. Electronically signed by: Ilir García On 10/30/2019 13:53:09 PM
== END ==
LOC: M RAD 09:25
PROVIDERS: ATTEND Internal Medicine Nephrology
DX: M47.812 Spondylosis without myelopathy or radiculopathy, cervical region (principal); M54.12 Radiculopathy, cervical region; M85.9 Disorder of bone density and structure, unspecified; R91.8 Other nonspecific abnormal finding of lung field

== ENCOUNTER → 2019-11-10 | Outpatient (CLI) | payer MEDICARE, OTHER | LOC: M RAD 08:57 | PROVIDERS: ATTEND Internal Medicine Nephrology | DX: D40.0 Neoplasm of uncertain behavior of prostate (principal); Z85.850 Personal history of malignant neoplasm of thyroid; Z85.810 Personal history of malignant neoplasm of tongue; Z53.8 Procedure and treatment not carried out for other reasons ==

== ENCOUNTER → 2019-11-10 | Outpatient (CLI) | payer MEDICARE, OTHER ==
--- NOTE | 2019-11-10 11:42 | REP ---
LEFT LOWER EXTREMITY DUPLEX DOPPLER ARTERIAL ULTRASOUND: Real-time ultrasound evaluation and duplex Doppler interrogation of left lower extremity arterial system performed and compared to prior study of 06/11/2019. There is again occlusion of the distal posterior tibial artery, as seen on prior study. There is reconstitution distally with minimal reversed flow in the more distal aspect of the posterior tibial artery. There is moderate to severe diffuse plaquing again noted without other evidence of hemodynamically significant stenosis or occlusion. PEAK SYSTOLIC VELOCITY PHASICITY Common femoral artery 85.3 cm/s Triphasic Profunda 75.2 Triphasic SFA 96.9 Triphasic Popliteal 86.0 Triphasic Proximal COREEN 66.5 Triphasic Tibial/peroneal trunk 59.7 Triphasic Proximal VEGETABLE CUTTER 40 Triphasic Distal VEGETABLE CUTTER Occluded Distal COREEN 168.7 Monophasic Essentially no change since prior study, 06/11/2019. There is, again, occlusion of the distal left posterior tibial artery with moderate to severe diffuse plaquing. Electronically Signed by Tim Person MD 11/10/2019 07:34 P
--- NOTE | 2019-11-10 14:26 | REP ---
Whole body radionuclide bone scan: History: Left leg atherosclerosis. 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 Lytic lesions on cervical spine CT. Comparison CT images October 30, 2019. Technique: 22.0 mCi technetium 99m MDP is injected and standard whole body bone scan imaging was acquired. Findings: There is photopenia associated with the intact left hip arthroplasty prosthesis components. There is shortening of the right leg abnormal increased bony and soft tissue uptake is seen at the right hip. This corresponds with a history of right hip replacement and subsequent removal due to infection. There are no comparison images. There is fairly extensive soft tissue uptake and bony uptake in what is most likely a pseudoarthrosis at the right hip post removal of arthroplasty. This should be correlated clinically and if warranted, radiographically. There is no abnormal uptake in the cervical spine. There is no evidence to suggest skeletal metastatic disease. The patient has renal insufficiency and accordingly, there is absence of renal and bladder uptake. There is a small focus of soft tissue uptake to the right of the mid lumbar spine. There is arthritic uptake in the feet. Impression: There is considerable shortening of the right lower extremity apparently related to removal of a previously placed hip prosthesis and subsequent pseudoarthrosis. There is prominent soft tissue uptake and bony uptake associated with the right hip. Left hip arthroplasty is seen. There is no evidence to suggest skeletal metastatic disease. Electronically Signed by Lalo Goodman MD 11/10/2019 02:56 P
== END ==
LOC: M RAD 08:50
PROVIDERS: ATTEND Physician Assistant
DX: Z01.818 Encounter for other preprocedural examination (principal); I70.202 Unspecified atherosclerosis of native arteries of extremities, left leg; D48.0 Neoplasm of uncertain behavior of bone and articular cartilage; Z85.810 Personal history of malignant neoplasm of tongue; Z79.82 Long term (current) use of aspirin

== ENCOUNTER → 2020-03-25 | Outpatient (REF) | payer MEDICARE, OTHER ==
[~2020-03-25] MED LIST changes: +CYCL-707 PO; -CYCL10TA PO; +VITA-243 PO
== END ==
LOC: M LAB REF 17:13
PROVIDERS: ATTEND Dermatology
DX: C44.629 Squamous cell carcinoma of skin of left upper limb, including shoulder (principal)
CPT/HCPCS: 11102; 88305; G0463

== ENCOUNTER → 2020-04-22 | Outpatient (REF) | payer MEDICARE, OTHER ==
[~2020-04-22] MED LIST changes: +ASPI-546 PO; -ASPI1TAB15 PO; -ASPI81TA85 PO; +ASPI81TA86 PO; +SYNT75TA PO; +[UNRECOGNIZED DRUG - REMARK]
== END ==
LOC: M LAB REF 17:34
PROVIDERS: ATTEND Dermatology
DX: C44.629 Squamous cell carcinoma of skin of left upper limb, including shoulder (principal); L90.5 Scar conditions and fibrosis of skin

== ENCOUNTER → 2020-05-03 | Outpatient (REF) | payer MEDICARE, OTHER ==
[~2020-05-03] MED LIST changes: -ASPI-546 PO; +ASPI1TAB15 PO; +ASPI81TA85 PO; -ASPI81TA86 PO; -SYNT75TA PO; -[UNRECOGNIZED DRUG - REMARK]
== END ==
LOC: EEVIPCON 17:35 → M LAB REF 17:35
PROVIDERS: ATTEND Dermatology
DX: T14.90XD Injury, unspecified, subsequent encounter (principal)

== ENCOUNTER → 2020-05-05 | Outpatient (REF) | payer MEDICARE, OTHER ==
[~2020-05-05] MED LIST changes: +SYNT75TA PO; +[UNRECOGNIZED DRUG - REMARK]
== END ==
LOC: M SFHCDERM 11:01
PROVIDERS: ATTEND Dermatology
DX: T14.90XD Injury, unspecified, subsequent encounter (principal)

== ENCOUNTER → 2020-05-16 | Outpatient (CLI) | payer MEDICARE, OTHER ==
[~2020-05-16] MED LIST changes: +ASPI-546 PO; -ASPI1TAB15 PO; -ASPI81TA85 PO; +ASPI81TA86 PO
== END ==
LOC: M LABSMTC 10:33
PROVIDERS: ATTEND Surgery Vascular Surgery
DX: Z11.59 Encounter for screening for other viral diseases (principal)
CPT/HCPCS: C9803; U0003

== ENCOUNTER → 2020-05-17 | Outpatient (CLI) | payer MEDICARE, OTHER ==
[2020-05-17 14:30] LABS: BASO % 0.4 % (0.0-1.0); EOS # 0.1 10^3/uL (0.0-0.5); EOS % 1.8 % (0.0-3.0); HEMATOCRIT 33.8 % (42.0-52.0); HEMOGLOBIN 11.2 g/dl (13.5-17.5); LYMPH # 0.5 10^3/uL (1.5-5.0); LYMPH % 11.6 % (24.0-44.0); MEAN CORPUSCULAR HEMOGLOBIN 34.4 pg (27.0-33.0); MEAN CORPUSCULAR HGB CONC 33.1 g/dl (32.0-36.5); MEAN CORPUSCULAR VOLUME 103.7 fl (80.0-96.0); MONO # 0.2 10^3/uL (0.0-0.8); MONO % 5.1 % (0.0-5.0); NEUTROPHILS # 3.6 10^3/uL (1.5-8.5); NEUTROPHILS % 80.7 % (36.0-66.0); PLATELET COUNT, AUTOMATED 142 10^3/uL (150-450); RED BLOOD COUNT 3.26 10^6/uL (4.30-6.10); WHITE BLOOD COUNT 4.5 10^3/uL (4.0-10.0)
[2020-05-17 14:50] LABS: INR 1.04; PROTHROMBIN TIME 13.3 SECONDS (11.8-14.0)
[2020-05-17 14:51] LABS: PARTIAL THROMBOPLASTIN TIME 35.3 SECONDS (25.0-38.4)
[2020-05-17 15:13] LABS: ALBUMIN 3.9 GM/DL (3.2-5.2); ALT/SGPT 54 U/L (12-78); BILIRUBIN,DIRECT 0.1 MG/DL (0.0-0.2); BILIRUBIN,TOTAL 0.4 MG/DL (0.2-1.0); BLOOD UREA NITROGEN 97 MG/DL (7-18); CALCIUM LEVEL 9.4 MG/DL (8.8-10.2); CARBON DIOXIDE LEVEL 22 MEQ/L (21-32); CHLORIDE LEVEL 94 MEQ/L (98-107); CHOLESTEROL LEVEL 140 MG/DL (<200); CHOLESTEROL RISK RATIO 3.783 (<5); CREATININE FOR GFR 5.79 MG/DL (0.70-1.30); GLOMERULAR FILTRATION RATE 10.6 (>49); GLUCOSE, FASTING 87 MG/DL (70-100); HDL CHOLESTEROL 37 MG/DL (>40); HEPATITIS B SURFACE ANTIBODY POSITIVE (POSITIVE); LDL CHOLESTEROL 84 MG/DL (<100); MAGNESIUM LEVEL 3.5 MG/DL (1.8-2.4); NON-HDL-C 103 MG/DL; PHOSPHORUS LEVEL 4.5 MG/DL (2.5-4.9); POTASSIUM SERUM 4.9 MEQ/L (3.5-5.1); PTH INTACT 120.9 PG/ML (18.5-88.0); SODIUM LEVEL 131 MEQ/L (136-145); TOTAL PROTEIN 7.6 GM/DL (6.4-8.2); TRIGLYCERIDES LEVEL 93 MG/DL (<150)
[2020-05-17 15:17] LABS: HEPATITIS B SURFACE ANTIGEN NEGATIVE (NEGATIVE)
[2020-05-17 15:45] LABS: HEPATITIS C VIRUS ABY INDEX 0.1 INDEX (<0.8); HIV 1&2 SCREEN CENTAUR NEGATIVE (NEGATIVE)
--- NOTE | 2020-05-18 | REP ---
Latest prior two-view examination of the chest is 07/05/2019. Latest prior examination of the chest is a portable examination of 07/16/2019. REASON FOR EXAM: Followup. Pretransplant evaluation for renal transplant. Curvilinear and discoid opacities have developed in the right lower lobe, and there is now right costophrenic and cardiophrenic angle blunting. Cardiomediastinal silhouette is unchanged. There is a mild left ventricular configuration to the heart without dwayne cardiomegaly. The tip of the central venous catheter is again seen in the superior vena cava. Chronic opacities are seen in the right upper lobe. There is no change in the osseous structures. IMPRESSION: Right lung base changes, as described above. Subsegmental atelectatic change possibly with a small right pleural effusion. Consider followup with chest CT. Electronically Signed by Piter Davies DO 05/18/2020 11:33 A
[2020-05-19 05:07] LABS: CARDIOLIPIN IGA ANTIBODY <9 APL U/mL (0-11); CARDIOLIPIN IGG ANTIBODY <9 GPL U/mL (0-14); CARDIOLIPIN IGM ANTIBODY <9 MPL U/mL (0-12); CYTOMEGALOVIRUS IgG ANTIBODY <0.60 U/mL (0.00-0.59); G6PD2 3.16 x10E6/uL (4.14-5.80); MUMPS VIRUS IgG ANTIBODY >300.0 AU/mL (Immune >10.9); PSA TOTAL 0.1 ng/mL (0.0-4.0); RUBEOLA IgG ANTIBODY >300.0 AU/mL (Immune >16.4)
== END ==
LOC: M LAB 12:21
PROVIDERS: ATTEND Internal Medicine Nephrology
DX: Z01.818 Encounter for other preprocedural examination (principal); R91.8 Other nonspecific abnormal finding of lung field; Z99.2 Dependence on renal dialysis; Z79.899 Other long term (current) drug therapy; Z79.82 Long term (current) use of aspirin

== ENCOUNTER 2020-05-21 06:09 | Day surgery (SDC) | payer MEDICARE, OTHER ==
[~2020-05-21] VITALS: Ht 170.2 cm; Wt 76.2 kg
[~2020-05-21 06:09] MED LIST changes: +D5W/0.2% SODIUM CHLORIDE 1,000 ML IV ONE; +LIDOCAINE 1% MDV 20ML VIAL SQ PRN; +LIDOCAINE 2% 100MG/5ML SDV (FOR ANES.) As Ordered ONE; +MIDAZOLAM INJ 2MG/2ML VIAL (J2250 PER 1MG) As Ordered ONE; -SYNT75TA PO; +ceFAZolin SOD 2 GM in IV 1 EA IV ONE; +fentaNYL 100 MCG/2 ML INJECTION (J3010) As Ordered ONE; +fentaNYL 100 MCG/2 ML INJECTION (J3010) IV SCH; +propofoL 200 MG/20 ML VIAL As Ordered ONE
[2020-05-21] MEDS ORDERED: SYNT75TA PO (06:53)
[2020-05-21] MEDS ORDERED: fentaNYL 100 MCG/2 ML INJECTION (J3010) As Ordered ONE ×2 (06:58→08:08)
[2020-05-21] MEDS ORDERED: MIDAZOLAM INJ 2MG/2ML VIAL (J2250 PER 1MG) As Ordered ONE ×2 (06:58→08:08)
[2020-05-21] MEDS ORDERED: ceFAZolin SOD 2 GM in IV 1 EA IV ONE (07:00)
[2020-05-21] MEDS ORDERED: D5W/0.2% SODIUM CHLORIDE 1,000 ML IV ONE (07:00)
[2020-05-21] MEDS ORDERED: HEPARIN SOD (PORCINE) 5000UNITS/ML 1ML VIAL/SYRINGE As Ordered ONE (07:11)
[2020-05-21] MEDS: MIDAZOLAM INJ 2MG/2ML VIAL (J2250 PER 1MG) IV SCH ×2 (07:18→07:20)
[2020-05-21] MEDS ORDERED: LIDOCAINE 1% SDV 30ML VIAL As Ordered ONE (07:44)
[2020-05-21] MEDS ORDERED: LIDOCAINE 2% 100MG/5ML SDV (FOR ANES.) As Ordered ONE (08:08)
[2020-05-21] MEDS ORDERED: propofoL 200 MG/20 ML VIAL As Ordered ONE ×2 (08:08→08:25)
[2020-05-21] MEDS ORDERED: PHENYLephrine HCL 500 MCG/5 ML (100MCG/ML) SYRINGE (J2370) As Ordered ONE (08:08)
[2020-05-21] MEDS ORDERED: ONDANSETRON 4MG/2ML VIAL As Ordered ONE (08:08)
[2020-05-21] MEDS ORDERED: PHENYLEPHRINE 10MG/ML 1ML VIAL (J2370 PER 1) As Ordered ONE (08:13)
[2020-05-21] MEDS ORDERED: OXYC1TAB23 PO (09:26)
--- NOTE | 2020-05-21 09:36 | ROOPDOC ---
[facility] Report Of Operation Report of Operation DATE OF PROCEDURE: 05/21/20 PREPROCEDURE DIAGNOSES: End-stage renal disease requiring access for dialysis POSTPROCEDURE DIAGNOSES: Same PROCEDURE: Right brachial basilic AV fistula creation SURGEON: Ian Paniagua MD ANESTHESIA: Monitored anesthesia care, right axillary nerve block, local anesthesia INDICATION FOR PROCEDURE: Mr. Chen is a very pleasant 65-year-old gentleman who has had failed access in the left upper extremity with another provider, and the most recent left brachial basilic transposition resulted in significant neurologic deficits in the left arm and hand due to massive hematoma and near exsanguination postprocedure. The patient has been subsequently apprehensive about obtaining a new access in the right upper extremity. I understand his concerns, and have been patiently awaiting his agreement to proceed with a right brachial basilic AV fistula. We reviewed his vein mapping with him in clinic multiple times, and we would prefer an autologous fistula if possible, and he does have a suitable basilic vein on the right. The patient is now agreeable to proceed. We have gone over the risks benefits and alternatives extensively and informed consent was obtained. REPORT OF OPERATION: The patient was brought to the OR in stable condition after right axillary nerve block was placed by our anesthesia colleagues in the preop holding. Monitored anesthesia care and antibiotics were administered without complication. His right upper extremity was prepped and draped in a sterile fashion. A timeout was performed. Ultrasound was used to examine the arm to ensure that the basilic vein was still patent prior to surgery. We also noted good flow through the brachial artery. 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 Local anesthesia was administered to the skin and subcutaneous tissue between the brachial artery and the basilic vein just proximal to the antecubital crease. A longitudinal incision was made and carried down to the subcutaneous tissues with Bovie cautery. We first dissected out the brachial vein proximally and distally within the incision. Branches were suture ligated and divided. The distal branches were tied and the vein was cut, and then the 2 ends were connected to make a larger patch for anastomosis. Dilators passed easily through the vein including a 3.5, 4 mm, and 4.5 mm dilator. A bulldog clamp was placed proximally on the vein after marking it for orientation and flushing with saline. We then dissected out the brachial artery proximally and distally. There was quite a bit of scar tissue around the artery, so care was taken not to disrupt the vein or any arterial branches. Vesseloops were placed proximally and distally. We then secured the Vesseloops and a 5 mm arteriotomy was made in the vein was anastomosed to the artery and an en d-to-side fashion with running 6-0 Prolene suture. Before the final sutures are placed, we flushed inflow and outflow the artery as well as the vein and irrigated with heparinized saline. We then placed the final sutures and restorative flow through the vein and the inflow artery. Last, we restart flow to the hand. He was in excellent radial pulse, and a triphasic signal over the p almar arch after fistula creation. There was excellent flow through the basilic vein on Doppler. We irrigated with copious amounts of saline. I noted a small amount of venous bleeding from a branch where we disconnected the basilic vein, and this was oversewn with a 4-0 Vicryl suture. Good hemostasis was noted. We irrigated with copious amounts of saline. The deep tissues were approximated with interrupted 2-0 Vicryl sutures to close the space. We then approximated the fascia with 2-0 Vicryl suture. The deep dermal layer was approximated with interrupted 4-0 Vicryl suture. The skin was closed with running subcuticular Monocryl suture. The skin was clean and dry. Mastisol and Steri-Strips replace the length of the incision, and 2 x 2 and Tegaderms were p laced as a final dressing. A sling was placed to protect the arm until the nerve block wears off and the patient was then allowed to awaken from anesthesia and taken to recovery in stable condition. He tolerated the procedure and the sedation well. ESTIMATED BLOOD LOSS: Approximately 50 mL. COMPLICATIONS: None. PLAN: Okay to resume home diet medications. Continue use PermCath for dialysis at this time. We'll see the patient back in a week to check his incision is fistula. Ok to remove tegaderm after 48 hrs, but leave steri strips intact for 7 days to help incision to heal. No lifting >5lbs or strenuous exercise right arm for 2 weeks. Use squeeze ball right hand to help strengthen fistula. If incision gets wet in shower or while cleaning, pat dry with clean towel. We appreciate the opportunity to participate in the care of this patient. IAN PANIAGUA MD May 21, 2020 09:36
[2020-05-21 10:16] VITALS: BP 120/63
== END 2020-05-21 10:40 | disposition home or self-care (01) ==
LOC: M SDC 06:09
PROVIDERS: ATTEND Surgery Vascular Surgery
DX: N18.6 End stage renal disease (principal); C02.9 Malignant neoplasm of tongue, unspecified; E46 Unspecified protein-calorie malnutrition; E89.0 Postprocedural hypothyroidism; F40.240 Claustrophobia; I15.0 Renovascular hypertension; I34.1 Nonrheumatic mitral (valve) prolapse; I35.0 Nonrheumatic aortic (valve) stenosis; I44.0 Atrioventricular block, first degree; I73.9 Peripheral vascular disease, unspecified; K21.9 Gastro-esophageal reflux disease without esophagitis; K44.9 Diaphragmatic hernia without obstruction or gangrene; M19.90 Unspecified osteoarthritis, unspecified site; R01.1 Cardiac murmur, unspecified; Z79.82 Long term (current) use of aspirin; Z79.890 Hormone replacement therapy; Z79.899 Other long term (current) drug therapy; Z80.59 Family history of malignant neoplasm of other urinary tract organ; Z85.828 Personal history of other malignant neoplasm of skin; Z85.850 Personal history of malignant neoplasm of thyroid; Z86.14 Personal history of Methicillin resistant Staphylococcus aureus infection; Z86.2 Personal history of diseases of the blood and blood-forming organs and certain disorders involving the immune mechanism; Z86.79 Personal history of other diseases of the circulatory system; Z87.891 Personal history of nicotine dependence; Z88.8 Allergy status to other drugs, medicaments and biological substances; Z92.3 Personal history of irradiation; Z94.0 Kidney transplant status; Z95.828 Presence of other vascular implants and grafts; Z96.1 Presence of intraocular lens; Z96.643 Presence of artificial hip joint, bilateral; Z98.41 Cataract extraction status, right eye; Z98.42 Cataract extraction status, left eye; Z99.2 Dependence on renal dialysis
CPT/HCPCS: 36415; 36821; 64417; 84132; J0690; J1644; J2250; J2370; J2405; J3010

== ENCOUNTER → 2020-07-06 | Outpatient (CLI) | payer MEDICARE, OTHER ==
[~2020-07-06] MED LIST changes: -D5W/0.2% SODIUM CHLORIDE 1,000 ML IV ONE; -LIDOCAINE 1% MDV 20ML VIAL SQ PRN; -LIDOCAINE 2% 100MG/5ML SDV (FOR ANES.) As Ordered ONE; -MIDAZOLAM INJ 2MG/2ML VIAL (J2250 PER 1MG) As Ordered ONE; +SYNT75TA PO; -ceFAZolin SOD 2 GM in IV 1 EA IV ONE; -fentaNYL 100 MCG/2 ML INJECTION (J3010) As Ordered ONE; -fentaNYL 100 MCG/2 ML INJECTION (J3010) IV SCH; -propofoL 200 MG/20 ML VIAL As Ordered ONE
[2020-07-06 12:11] LABS: THYROGLOBULIN ANTIBODY < 15.0 U/ML (<60.0); THYROID PEROXIDASE ANTIBODY < 28.0 U/ML (<60.0); THYROID STIMULATING HORMONE 0.659 uIU/ML (0.358-3.740)
== END ==
LOC: M LAB 10:09
PROVIDERS: ATTEND Nurse Practitioner Adult Health
DX: E89.0 Postprocedural hypothyroidism (principal)

== ENCOUNTER → 2020-11-12 | Outpatient (CLI) | payer MEDICARE, OTHER ==
[~2020-11-12] MED LIST changes: +ISOVUE-300 61% 50ML VIAL As Ordered ONE; +LIDOCAINE 1% MDV 20ML VIAL As Ordered ONE; +MIDAZOLAM INJ 2MG/2ML VIAL (J2250 PER 1MG) As Ordered ONE; +VITAD400CA FT; +fentaNYL 100 MCG/2 ML INJECTION (J3010) As Ordered ONE
[2020-11-12 13:56] VITALS: BP 140/62
--- NOTE | 2020-11-12 14:03 | ROOPDOC ---
[facility] Report Of Operation Report of Operation DATE OF PROCEDURE: 11/12/20 PREPROCEDURE DIAGNOSES: End-stage renal disease with poor maturation right upper extremity brachiobasilic AV fistula POSTPROCEDURE DIAGNOSES: Same PROCEDURE: 1. Ultrasound-guided access right basilic vein 2. Right upper extremity fistulogram and central venogram 3. Angioplasty right basilic vein was 7 x 20 cutting balloon 4. Angioplasty right basilic vein, axillary vein, subclavian vein, proximal SVC with 8 x 200 [place] balloon 5. Completion venogram SURGEON: Ian Paniagua MD ANESTHESIA: Local anesthesia only 1 mL lidocaine. CONTRAST: 20 mL Isovue-300 INDICATION FOR PROCEDURE: Mr. Chen is a very pleasant 65-year-old gentleman with end-stage renal disease currently dialyzing with a right IJ PermCath who has poor maturation of his right brachiobasilic AV fistula. We were hoping to do a transposition soon, but the vein was pulsatile, and had narrow areas on ultrasound. Risks benefits and alternatives to a right upper extremity fistulogram potential intervention were explained to the patient needs agreeable to proceed. Informed consent was obtained. INTERPRETATION: 1. The AV anastomosis is widely patent as imaged on ultrasound, and images were saved. 2. Fistulogram of the right basilic vein reveals several areas of near occlusion in the proximal third of the vein near the AV anastomosis, and that it is not very large but patent back to the central system with stenosis noted at the subclavian SVC junction due likely to fibrin sheath around the PermCath. 3. After angioplasty with a cutting balloon in the basilic vein, there is a marked improvement in flow in the areas of near occlusion. No extravasation noted. 4. After angioplasty from the basilic vein near the AV anastomosis all the way back to the central system past the PermCath and the SVC, there is widely patent flow although the vessel is still somewhat diminutive in size, I estimate 6-7 mm throughout its length. REPORT OF OPERATION: The patient was brought to the angiographic suite in stable condition. His right upper extremity was prepped and draped in a sterile fashion. A timeout was performed. Ultrasound was used to examine the AV anastomosis and it was noted to be widely patent. Ultrasound was used to gain access to the right basilic vein after anesthetizing the skin with local anesthesia. A wire was passed through this access needle was removed and a 4 [place] sheath was placed and flushed with saline. Fistulogram and central venogram were performed. Please see interpretation above. Next, we advanced a Glidewire into the central system and exchanges sheath for 7 [place] sheath and flushed the sheath with saline. We then exchanged the wire for 018 Glidewire advantage and advanced October 24 cutting balloon across areas of near occlusion in the basilic vein. These were successfully angioplasty, please see interpretation above. cavitation noted. Following this, we exchange the wire again for the O35 Glidewire and advanced in 8 x 200 [place] balloon first through the basilic vein in the upper arm, then through the axillary vein subclavian vein and into the proximal SVC in the central system. Following three-minute inflations in both areas, there is widely patent flow back to the central system, but still some hang-up of contrast due to likely partial obstruction of the outlet from the PermCath. There was an excellent thrill and the fistula. No extravasation noted. We did not feel it was dempsey to upsize the balloon today, and we will see if this matures on its own now that we have performed this angioplasty, otherwise, the patient will come back for a second angioplasty if maturation continues to fail. A Prolene suture was placed at the sheath in a [id number] and secured as the sheath was removed. Pressure was held and sterile dressings were applied. The patient was taken to recovery in stable condition. He tolerated the procedure well without sedation. ESTIMATED BLOOD LOSS: Approximately 2 mL. COMPLICATIONS: None. PLAN: Continue disease PermCath for dialysis. We will check the patient's fistula in clinic in a couple weeks to see how maturation is going. If it has matured well, we will set him up for a transposition, otherwise he will need another angioplasty to assist maturation. Hopefully this will not be necessary. The patient continues to use a squeeze ball appropriately to mature the fistula. He is also following up to see if he can be put back on the transplant list and we are very excited about this for him. We will see him back in a week to check his fistula. Okay to resume home diet and medications. We appreciate the opportunity to speak the care of this patient. IAN PANIAGUA MD Nov 12, 2020 14:03
== END ==
LOC: M IRPRO 11:25
PROVIDERS: ATTEND Surgery Vascular Surgery
DX: T82.590A Other mechanical complication of surgically created arteriovenous fistula, initial encounter (principal); N18.6 End stage renal disease; X58.XXXA Exposure to other specified factors, initial encounter; I34.2 Nonrheumatic mitral (valve) stenosis; Z79.82 Long term (current) use of aspirin; Z79.890 Hormone replacement therapy; Z85.828 Personal history of other malignant neoplasm of skin; Z88.8 Allergy status to other drugs, medicaments and biological substances; Z99.2 Dependence on renal dialysis
CPT/HCPCS: 36902; 36907; C1725; C1769; C1894; J1644; Q9967

== ENCOUNTER → 2021-05-06 | Outpatient (CLI) | payer MEDICARE, OTHER ==
[~2021-05-06] MED LIST changes: -ISOVUE-300 61% 50ML VIAL As Ordered ONE; -LIDOCAINE 1% MDV 20ML VIAL As Ordered ONE; -MIDAZOLAM INJ 2MG/2ML VIAL (J2250 PER 1MG) As Ordered ONE; -OXYC1TAB15 PO; +OXYC7.5T3 PO; -fentaNYL 100 MCG/2 ML INJECTION (J3010) As Ordered ONE
--- NOTE | 2021-05-06 10:52 | REP ---
INDICATION: OCCULSION / STENOSIS KAYLENE CAROTID ARTERIS COMPARISON: 08/18/2011 TECHNIQUE: Person scale and color Doppler evaluation using linear high frequency transducer Findings: FINDINGS: Two-dimensional person scale and color images demonstrate moderate bilateral atheromatous plaquing without obvious focal area of stenosis or occlusion. Color images demonstrate normal laminar flow without obvious turbulence. Color Doppler interrogation demonstrates normal arterial wave patterns and velocities with mild spectral broadening. Normal flow direction is appreciated in the bilateral vertebral arteries. ICA peak systolic velocity: Right 76.4 cm/s; Left 99.5 cm/s ICA diastolic velocity: Right 19.2 cm/s; Left 23.8 cm/s ECA peak systolic velocity: Right 56.4 cm/s; Left 73.7 cm/s CCA peak systolic velocity: Right 61.1 cm/s; Left 75.2 cm/s ICA/CCA ratio: Right 1.25 cm/s; Left 1.32 cm/s IMPRESSION: No hemodynamically significant areas of narrowing or stenosis appreciated. Based on set standards narrowing falls within the less than 50% range. <Electronically signed by Marcos Delacruz > 05/06/21 104
== END ==
LOC: M RAD 10:19
PROVIDERS: ATTEND Physician Assistant
DX: I65.23 Occlusion and stenosis of bilateral carotid arteries (principal)

== ENCOUNTER → 2021-06-15 | Outpatient (CLI) | payer MEDICARE, OTHER ==
--- NOTE | 2021-06-15 11:32 | REP ---
INDICATION: ESRD PER OP FOR TRANS PLANT EVAL VASC PULM NODULES. COMPARISON: None. TECHNIQUE: Scans were obtained without contrast administration. FINDINGS: The gallbladder has been surgically removed. There are several sub cm cysts in the liver. The liver is otherwise unremarkable. There is no evidence of mass or biliary tract dilatation. The spleen shows normal size and attenuation. The pancreas is unremarkable. The aorta is calcified as are the visceral branches. There is no evidence of aneurysm. The [place] kidneys are markedly atrophic and contain multiple cysts and calcifications. The common iliac and external iliac arteries are heavily calcified. A transplant kidney in the left side of the pelvis is atrophic. A transplanted kidney in the right side of the pelvis contains multiple calcifications and is atrophic. There is no mass, adenopathy or inflammatory change in the abdomen or pelvis. 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 IMPRESSION: Atrophic and nonfunctioning [place] and transplant kidneys. No mass, adenopathy or inflammatory change in the abdomen or pelvis. <Electronically signed by Berry Brooke > 06/15/21 [id number]
--- NOTE | 2021-06-15 11:51 | REP ---
INDICATION: ESRD PER OP FOR TRANS PLANT EVAL VASC PULM NODULES COMPARISON: Multiple the latest 07/30/2019 TECHNIQUE: Standard helical technique without intravenous contrast. FINDINGS: There is no significant change in appearance of the mediastinum or pulmonary sarah. No mass or adenopathy has developed. There is no significant change in appearance of the imaged upper abdomen or imaged osseous structures. Evaluation of the lung [place] shows chronic bilateral upper lobe calcifications which have increased slightly from the prior exam. There are new bilateral lower lobe asymmetric densities right greater than left and some with calcifications. There is a new pleural based asymmetric density in the inferior right middle lobe which measures 1.7 x 0.7 cm. IMPRESSION: Extensive bilateral airspace calcifications as described above. There are a number of conditions which can cause this. Notably, primary and secondary hyperparathyroidism, chronic renal failure, RUBIA, amiodarone lung, tuberculosis, and Talcosis. Clinical correlation and follow-up is recommended. New asymmetric pleural based density as described above. Neoplastic change cannot be ruled out. Consider follow-up with CT-PET at this time according to the revised Fleischner society criteria. <Electronically signed by Piter Davies > 06/15/21 [id number]
== END ==
LOC: M RAD 10:23
DX: Z01.818 Encounter for other preprocedural examination (principal); N18.6 End stage renal disease; R91.8 Other nonspecific abnormal finding of lung field; K76.89 Other specified diseases of liver; N28.1 Cyst of kidney, acquired

== ENCOUNTER → 2021-06-20 | Outpatient (CLI) | payer MEDICARE, OTHER ==
[~2021-06-20] MED LIST changes: +**hydrALAZINE** 10 MG TAB PO STA; +ISOVUE-300 61% 50ML VIAL As Ordered ONE; +LIDOCAINE 1% MDV 20ML VIAL As Ordered ONE; +MIDAZOLAM INJ 2MG/2ML VIAL (J2250 PER 1MG) As Ordered ONE; +fentaNYL 100 MCG/2 ML INJECTION (J3010) As Ordered ONE
[2021-06-20 10:33] VITALS: BP 167/80
[2021-06-20 11:45] VITALS: BP 144/63
--- NOTE | 2021-06-20 12:13 | RO ---
OPERATIVE NOTE DATE OF OPERATION: 06/20/2021 PREOPERATIVE DIAGNOSIS: Immature AV fistula, end-stage renal disease with need for permanent hemodialysis access. POSTOPERATIVE DIAGNOSIS: Occluded right arm brachial to basilic AV fistula. PROCEDURE PERFORMED: Right arm forearm and hand angiogram, ultrasound evaluation of axillary vein system of right arm. SURGEON: Seth Ruelas MD COMMUNITY HEALTH ADVISOR: No qualified resident was available to assist with this case. ANESTHESIA: Local anesthetic only, 1% Lidocaine given 1 mL total. CONTRAST USED: Around 20 mL of Visipaque. ESTIMATED BLOOD LOSS: Minimal. SPECIMEN: None. COMPLICATIONS: None. PROCEDURE INDICATION: Mr. Jc Chen is a 66-year-old gentleman known to Dr. Paniagua. He has a right arm brachial to basilic AV fistula. The fistula did not mature. He now presents for repeat fistulogram after previous balloon angioplasty with cutting balloon in November, seven months ago. He is also seeking a transplant. DESCRIPTION OF PROCEDURE: The patient was taken to the interventional suite. The right upper extremity was prepped and draped in standard sterile fashion. Micropuncture needle and sheath used to gain access close to the arteriovenous anastomosis in antegrade fashion and pulsatile flow was immediately noted. I inserted a micropuncture sheath and I attempted to do right arm fistulogram. Immediately first images confirmed that we were actually in the brachial artery which was quite superficial, probably mobilized from the previous fistula creation. Brachial artery was large, widely patent, measuring about 8-9 mm in diameter, tortuous. It bifurcated into dual radial and interosseous artery and single ulnar artery. All vessels are decent size and caliber, probably measuring around 3-4 mm each as they course through the forearm in very pulsatile high resistance pattern. The ulnar artery is the dominant flow to the hand followed by the interosseous and last is the radial artery. The palmar artery appears to be patent. At this point I removed micropuncture sheath, held manual pressure, obtained hemostasis and transferred the patient to the recovery room. I then did quick ultrasound scan of his axillary veins and confirmed that the basilic vein which was patent previously is now occluded. Just prior to the basilic vein joint the axillary vein in the upper armpit the vein is patent and measures around 8 mm in diameter, I think is suitable for looped upper arm AV graft in the right arm. We will get this set up for him as soon as possible. I did offer to do this during this hospitalization or in the next few days but he is quite busy with other appointments and cannot do it anytime this week so I think he will end up needing to do this with a different physician. In any case, I do think he has opportunity here for AV graft access for hemodialysis. STIVEN
== END ==
LOC: M IRPRO 07:57
PROVIDERS: ATTEND Surgery Vascular Surgery
DX: T82.868A Thrombosis due to vascular prosthetic devices, implants and grafts, initial encounter (principal); N18.6 End stage renal disease; X58.XXXA Exposure to other specified factors, initial encounter
CPT/HCPCS: 36901; C1894; J1644; Q9967

== ENCOUNTER → 2021-06-22 | Outpatient (CLI) | payer MEDICARE, OTHER ==
[~2021-06-22] MED LIST changes: -**hydrALAZINE** 10 MG TAB PO STA; -ISOVUE-300 61% 50ML VIAL As Ordered ONE; -LIDOCAINE 1% MDV 20ML VIAL As Ordered ONE; -MIDAZOLAM INJ 2MG/2ML VIAL (J2250 PER 1MG) As Ordered ONE; -fentaNYL 100 MCG/2 ML INJECTION (J3010) As Ordered ONE
== END ==
LOC: M LABSMTC 09:58
PROVIDERS: ATTEND Anesthesiology
DX: Z01.812 Encounter for preprocedural laboratory examination (principal); Z20.822 Contact with and (suspected) exposure to COVID-19
CPT/HCPCS: G0463; U0003

== ENCOUNTER 2021-06-27 10:25 | Day surgery (SDC) | payer MEDICARE, OTHER ==
[~2021-06-27] VITALS: Ht 170.2 cm; Wt 78.9 kg
[~2021-06-27 10:25] MED LIST changes: +LR 1,000 ML IV ONE
[2021-06-27] MEDS ORDERED: NS 1,000 ML IV SCH (12:15)
[2021-06-27] MEDS ORDERED: ceFAZolin SOD 2 GM in IV 1 EA IV ONE (12:30)
[2021-06-27] MEDS ORDERED: LIDOCAINE 1% SDV 30ML VIAL As Ordered ONE (14:44)
[2021-06-27] MEDS ORDERED: HEPARIN SOD (PORCINE) 5000UNITS/ML 1ML VIAL/SYRINGE As Ordered ONE ×3 (14:44→16:56)
[2021-06-27] MEDS ORDERED: BUPIVACAINE/EPIN 0.5% 30 ML VIAL As Ordered ONE (14:44)
[2021-06-27] MEDS ORDERED: ONDANSETRON 4MG/2ML VIAL As Ordered ONE ×2 (15:01→17:34)
[2021-06-27] MEDS ORDERED: dexameTHASONE 4 MG/ML 1ML VIAL (J1100 PER 1MG) As Ordered ONE (15:01)
[2021-06-27] MEDS ORDERED: fentaNYL 100 MCG/2 ML INJECTION (J3010) As Ordered ONE ×3 (15:01→17:45)
[2021-06-27] MEDS ORDERED: MIDAZOLAM INJ 2MG/2ML VIAL (J2250 PER 1MG) As Ordered ONE (15:01)
[2021-06-27] MEDS ORDERED: LIDOCAINE 2% 100MG/5ML SDV (FOR ANES.) As Ordered ONE (15:01)
[2021-06-27] MEDS ORDERED: ROCURONIUM BROMIDE 50 MG/5 ML VIAL As Ordered ONE ×2 (15:01→17:40)
[2021-06-27] MEDS ORDERED: propofoL 200 MG/20 ML VIAL As Ordered ONE (15:01)
[2021-06-27] MEDS ORDERED: propofoL 500 MG/50 ML VIAL As Ordered ONE (15:06)
[2021-06-27] MEDS ORDERED: THROMBIN SOLN 5,000 UNITS VIAL As Ordered ONE (17:28)
[2021-06-27] MEDS ORDERED: PROTAMINE SULF 50MG/5ML VIAL (J2720 PER 10MG) As Ordered ONE (17:29)
[2021-06-27] MEDS ORDERED: SUGAMMADEX SODIUM 500 MG/5 ML VIAL (BRIDION) As Ordered ONE (17:42)
[2021-06-27] MEDS ORDERED: ACETAMINOPHEN TAB 650MG DOSE (2X325MG) PO SCH (18:00)
[2021-06-27] MEDS ORDERED: LR 1,000 ML IV SCH (19:25)
[2021-06-27] MEDS ORDERED: fentaNYL 100 MCG/2 ML INJECTION (J3010) IV PRN (19:25)
[2021-06-27] MEDS ORDERED: ONDANSETRON 4MG/2ML VIAL IV PRN (19:25)
--- NOTE | 2021-06-27 19:37 | RO ---
OPERATIVE NOTE DATE OF OPERATION: 06/27/2021 PREOPERATIVE DIAGNOSIS: End-stage renal disease with need for permanent hemodialysis access. POSTOPERATIVE DIAGNOSIS: End-stage renal disease with need for permanent hemodialysis access. PROCEDURE PERFORMED: Right arm axillary to axillary loop AV graft using a 4-7 mm Acuseal PTFE grafted access AV graft. SURGEON: Seth Ruelas MD HOG RIBBER: No qualified surgical pathologist was available for the procedure. ESTIMATED BLOOD LOSS: 100 mL ANESTHESIA: General endotracheal with supplemental local lidocaine in the field. COMPLICATIONS: None. SPECIMEN: None. INDICATIONS: Mr. Jc Chen is a 66-year-old gentleman who has had dialysis access within both arms. He is left-handed. He underwent a fistulogram to look at his previous basilic vein AV graft and ultimately was found to be immatured and thrombosed. I felt like he would benefit from an attempted loop AV graft. The patient agreed to move forward. PROCEDURE IN DETAIL: The patient was taken to the operating room and he was placed under general endotracheal anesthesia. His arm was prepped and draped in standard sterile fashion. A timeout was performed, confirming the correct side and site of the procedure. We started by making a longitudinal incision over the axilla and I dissected out the axillary artery, taking care to preserve the median nerve. The axillary artery was doubly looped proximally and distally and what appeared to be the axillary vein was identified by ultrasound and then following that, we directed dissection next to the axillary artery. This was also doubly looped and was found to be quite small but I thought it would be suitable and acceptable for hemodialysis. At this point, I then made a total of four skip incisions in a looped fashion, working in a clockwise fashion to medially and then laterally across the right arm and a 4 x 7 mm Acuseal PTFE AV graft was inserted through the tunnel, taking care not to twist or kink the graft. The graft was then anastomosed to the axillary artery in an end-to-side fashion, making a 4-5 mm arterial anastomosis with 6-0 Prolene THEOLOGY PROFESSOR sutures. Once completed, the graft was flushed and then clamped and the venous anastomosis was completed, making a 1 cm graft to venous end-to-side anastomosis. At this point, the graft was then de-aired and flushed one last time. The anastomosis was completed with 6-0 Prolenes, also and the graft was felt to be hemostatic. I then applied some thrombin Gelfoam, reversed the 8000 units of heparin that had been given with 20 mg of protamine and compressed the arm and graft gently. At this point, there was minimal oozing noted in the tunnel. After about 10-20 minutes, hemostasis was assured. The patient had a continued palpable pulse at the wrist and a Doppler signal at the radial artery at the wrist which did not augment significantly with compression of the graft. Thus, I did not feel like he would at risk of steal syndrome. At this point, I then closed all wounds using Vicryl in an interrupted fashion followed by Monocryl and skin glue. The patient was then extubated and transferred to the recovery room in stable condition. I was present and performed all critical portions of the procedure. OUTCOME: Successful loop right arm AV graft access placement. The graft can be used within seven days for dialysis. Please note that the graft runs from medial to laterally within the right arm.
[2021-06-27 19:40] VITALS: BP 133/64
== END 2021-06-27 20:04 | disposition home or self-care (01) ==
LOC: M SDC 10:25
PROVIDERS: ATTEND Surgery Vascular Surgery
DX: N18.6 End stage renal disease (principal); T82.590A Other mechanical complication of surgically created arteriovenous fistula, initial encounter; Y73.2 Prosthetic and other implants, materials and accessory gastroenterology and urology devices associated with adverse incidents; Z94.0 Kidney transplant status; Z99.2 Dependence on renal dialysis; K57.90 Diverticulosis of intestine, part unspecified, without perforation or abscess without bleeding; E07.9 Disorder of thyroid, unspecified; I44.0 Atrioventricular block, first degree; I73.9 Peripheral vascular disease, unspecified; T88.4XXA Failed or difficult intubation, initial encounter; Z85.810 Personal history of malignant neoplasm of tongue; Z79.899 Other long term (current) drug therapy; Z79.82 Long term (current) use of aspirin; Z88.8 Allergy status to other drugs, medicaments and biological substances; Z87.891 Personal history of nicotine dependence
CPT/HCPCS: 36415; 36830; 84132; C1768; J0690; J1100; J1644; J2250; J2405; J2720; J3010

== ENCOUNTER → 2021-07-20 | Outpatient (CLI) | payer MEDICARE, OTHER ==
[~2021-07-20] MED LIST changes: -LR 1,000 ML IV ONE
== END ==
LOC: M LABSMTC 09:52
PROVIDERS: ATTEND Anesthesiology
DX: Z11.52 Encounter for screening for COVID-19 (principal); Z20.822 Contact with and (suspected) exposure to COVID-19

== ENCOUNTER 2021-07-25 09:11 | Day surgery (SDC) | payer MEDICARE, OTHER ==
[~2021-07-25] VITALS: Ht 170.2 cm; Wt 78.5 kg
[~2021-07-25 09:11] MED LIST changes: +NS 1,000 ML IV ONE
--- NOTE | 2021-07-25 10:40 | ROOR ---
Patient Name: Jc Chen Procedure Date: 07/25/2021 9:56 AM Date of : 1955 Age: 66 Room: [facility] Gender: Male Note Status: Finalized Procedure: Colonoscopy Indications: Screening for colorectal malignant neoplasm Providers: Junaid Lees MD Referring MD: Starr Alves MD Requesting Provider: Medicines: Monitored Anesthesia Care Complications: No immediate complications. Procedure: Pre-Anesthesia Assessment: - Prior to the procedure, a History and Physical was performed, and patient medications and allergies were reviewed. The patient is competent. The risks and benefits of the procedure and the sedation options and risks were discussed with the patient. All questions were answered and informed consent was obtained. Patient identification and proposed procedure were verified by the physician, the nurse and the complaint manager in the endoscopy suite. Mental Status Examination: alert and oriented. Airway Examination: normal oropharyngeal airway and neck mobility. Respiratory Examination: clear to auscultation. CV Examination: normal. Prophylactic Antibiotics: The patient does not require prophylactic antibiotics. Prior Anticoagulants: The patient has taken no previous anticoagulant or antiplatelet agents except for aspirin. ASA Grade Assessment: IV - A patient with severe systemic disease that is a constant threat to life. After reviewing the risks and benefits, the patient was deemed in satisfactory condition to undergo the procedure. The anesthesia plan was to use monitored anesthesia care (MAC). Immediately prior to administration of medications, the patient was re-assessed for adequacy to receive sedatives. The heart rate, respiratory rate, oxygen saturations, blood pressure, adequacy of pulmonary ventilation, and response to care were monitored throughout the procedure. The physical status of the patient was re-assessed after the procedure. The Colonoscope was introduced through the anus and advanced to the cecum, identified by appendiceal orifice and ileocecal valve. The colonoscopy was technically difficult and complex due to poor bowel prep with stool present and a tortuous colon. Successful completion of the procedure was aided by applying abdominal pressure and lavage. The patient tolerated the procedure well. The quality of the bowel preparation was poor. Findings: Hemorrhoids were found on perianal exam. A few medium-mouthed diverticula were found in the sigmoid colon, descending colon and transverse colon. There is no endoscopic evidence of inflammation, mass or polyps in the entire colon. Due to poor prep small/tiny flat polyps may have been missed. Non-bleeding internal hemorrhoids were found during retroflexion. The hemorrhoids were moderate. Impression: - Preparation of the colon was poor. - Hemorrhoids found on perianal exam. - Diverticulosis in the sigmoid colon, in the descending colon and in the transverse colon. - No specimens collected. Recommendation: - Repeat colonoscopy in 5-10 years for screening purposes. Procedure Code(s): --- Professional --- 11915, Colonoscopy, flexible; diagnostic, including collection of specimen(s) by brushing or washing, when performed (separate procedure) Diagnosis Code(s): --- Professional --- Z12.11, Encounter for screening for malignant neoplasm of colon K64.9, Unspecified hemorrhoids K57.30, Diverticulosis of large intestine without perforation or abscess without bleeding CPT copyright 2019 [employer]. All rights reserved. The codes documented in this report are preliminary and upon emergency room technician review may be revised to meet current compliance requirements. Junaid Lees MD Junaid Lees MD 07/25/2021 10:40:05 AM Electronically signed by Junaid Lees MD Number of Addenda: 0 Note Initiated On: 07/25/2021 9:56 AM Estimated Blood Loss: Estimated blood loss: none. Estimated blood loss: none.
[2021-07-25] MEDS ORDERED: LIDOCAINE 2% 100MG/5ML SDV (FOR ANES.) As Ordered ONE (10:50)
[2021-07-25] MEDS ORDERED: propofoL 200 MG/20 ML VIAL As Ordered ONE (10:50)
[2021-07-25 10:56] VITALS: BP 123/58
== END 2021-07-25 11:20 | disposition home or self-care (01) ==
LOC: M OPP 09:11 → M SDC 09:11
PROVIDERS: ATTEND Surgery
DX: Z12.11 Encounter for screening for malignant neoplasm of colon (principal); K57.30 Diverticulosis of large intestine without perforation or abscess without bleeding; K64.8 Other hemorrhoids; Z79.82 Long term (current) use of aspirin; Z79.891 Long term (current) use of opiate analgesic; Z79.899 Other long term (current) drug therapy; Z88.8 Allergy status to other drugs, medicaments and biological substances

== ENCOUNTER → 2021-08-10 | Outpatient (CLI) | payer MEDICARE, OTHER ==
[~2021-08-10] MED LIST changes: -NS 1,000 ML IV ONE
--- NOTE | 2021-08-10 13:18 | REP ---
INDICATION: ESRD COMPARISON: None. TECHNIQUE: Real-time sonographic evaluation of the right upper extremity arteries and AV fistula FINDINGS: All arterial systolic velocities are in cm/SEC. This is the 1st recorded number. All flow velocities are and cc/MIN. This is the 2nd recorded number. Axillary artery 2 cm proximal to the anastomosis 162/1305 monophasic Brachial artery midportion distal to the anastomosis 59.3/not reportable biphasic Ulnar artery proximal posterior distal to the anastomosis 57.1/not reportable triphasic Radial artery proximal portion distal to the anastomosis 37.8/not reportable biphasic Axillary artery graft at anastomosis 390/1457 monophasic Proximal portion of graft 105/100 monophasic Midportion of graft 104/803 monophasic Distal portion of graft 97.2/675 monophasic Axillary vein graft and anastomosis peak systolic velocity is 140/985 monophasic Axillary vein at graft distal to anastomosis peak systolic velocity is 230/983 monophasic At the site of the anastomosis a 4.7 x 1.1 x 1.9 cm sized fluid collection was identified in the deep subcutanea. The AV fistula is seen to be within normal limits without evidence of a stenosis. All flow volumes are within normal limits. IMPRESSION: As above <Electronically signed by Piter Davies > 08/10/21 [id number]
== END ==
LOC: M RAD 11:04
PROVIDERS: ATTEND Surgery Vascular Surgery
DX: N18.6 End stage renal disease (principal)

== ENCOUNTER → 2021-09-02 | Outpatient (CLI) | payer MEDICARE, OTHER ==
--- NOTE | 2021-09-02 11:35 | REPVR ---
PROCEDURE INFORMATION: Exam: CT Neck Without Contrast Exam date and time: 09/02/2021 11:13 AM Age: 66 years old Clinical indication: Other: Oral cancer TECHNIQUE: Imaging protocol: Computed tomography images of the neck without contrast. Radiation optimization: All CT scans at this facility use at least one of these dose optimization techniques: automated exposure control; mA and/or kV adjustment per patient size (includes targeted exams where dose is matched to clinical indication); or iterative reconstruction. COMPARISON: CT Chest without contrast 06/15/2021 10:53 AM FINDINGS: Nasopharynx: Unremarkable. Dental: The patient is edentulous. Oropharynx: There is more subtle fatty change in the left tongue on axial image 41 and coronal image 20 which could reflect impairment of hypoglossal nerve function. There is appropriate deviation of the tongue toward the left side. These changes may reflect treatment for stated oral cancer, previous CT of the cervical spine of 10/30/2019 is not available for comparison. Hypopharynx: Unremarkable. Larynx: Unremarkable. Normal epiglottis. Retropharyngeal space: Unremarkable. Submandibular/Parotid glands: Normal. Glands are normal in size. Thyroid: Normal. No enlarged or calcified nodules. Lymph nodes: Unremarkable. No lymphadenopathy. Trachea: Visualized trachea is unremarkable. Lungs: There is opacity of the lung substance greater at the right apex where density is as great as 145 units suggesting that this represents metastatic calcification secondary to chronic renal failure. Bones/joints: There is moderate degenerative disease of the temporomandibular joints bilaterally. The spine demonstrates moderate degenerative changes at multiple levels. Right IJ dialysis catheter is not fully included but reaches the cavoatrial junction on comparison CT. Vasculature: The vasculature demonstrates diffuse severe atherosclerotic calcification. Soft tissues: Unremarkable. No significant soft tissue swelling. IMPRESSION: 1. There is opacity of the lung substance greater at the right apex where density is as great as 145 units suggesting that this represents metastatic calcification secondary to chronic renal failure. 2. There is moderate degenerative disease of the temporomandibular joints bilaterally. 3. Right IJ dialysis catheter is not fully included but reaches the cavoatrial junction on comparison CT. 4. There is more subtle fatty change in the left tongue on axial image 41 and coronal image 20 which could reflect impairment of hypoglossal nerve function. There is appropriate deviation of the tongue toward the left side. These changes may reflect treatment for stated oral cancer, previous CT of the cervical spine of 10/30/2019 is not available for comparison. RECOMMENDATION: Depending on treatment options, MRI or PET CT may be helpful. Electronically signed by: Kaemron Muller On 09/02/2021 11:35:19 AM
--- NOTE | 2021-09-02 11:40 | REPVR ---
PROCEDURE INFORMATION: Exam: CT Maxillofacial Without Contrast Exam date and time: 09/02/2021 11:13 AM Age: 66 years old Clinical indication: Other: Oral cancer TECHNIQUE: Imaging protocol: Computed tomography images of the face without contrast. Radiation optimization: All CT scans at this facility use at least one of these dose optimization techniques: automated exposure control; mA and/or kV adjustment per patient size (includes targeted exams where dose is matched to clinical indication); or iterative reconstruction. COMPARISON: No relevant prior studies available. FINDINGS: Orbital cavity: Orbits are normal. Globes are unremarkable. Bones/joints: No acute fracture. Paranasal sinuses: There is opacification of the left frontal sinus without destructive features. Soft tissues: Unremarkable. Vasculature: The vasculature demonstrates diffuse severe atherosclerotic calcification. Dental: The patient is edentulous. 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 It is not clear the extent to which these changes are post treatment versus reflecting pathology and review of treatment records is suggested. 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 It is not clear the extent to which these changes are post treatment versus reflecting pathology and review of treatment records is suggested. RECOMMENDATION: Consider MRI and/or PET CT. Electronically signed by: Kameron Mulelr On 09/02/2021 11:39:53 AM
--- NOTE | 2021-09-02 12:33 | REPVR ---
PROCEDURE INFORMATION: Exam: CT Chest Without Contrast; Diagnostic Exam date and time: 09/02/2021 11:13 AM Age: 66 years old Clinical indication: Other: Oral cancer TECHNIQUE: Imaging protocol: Diagnostic computed tomography of the chest without contrast. Radiation optimization: All CT scans at this facility use at least one of these dose optimization techniques: automated exposure control; mA and/or kV adjustment per patient size (includes targeted exams where dose is matched to clinical indication); or iterative reconstruction. COMPARISON: CT Chest without contrast 06/15/2021 10:53 AM FINDINGS: Tubes, catheters and devices: The central venous catheter is stable with its tip the proximal right atrium. Lungs: Lungs are stable demonstrating bilateral upper lobe densities with calcification in some areas on the right. Subtle infiltrate extends into the right lower lobe, middle lobe and left lower lobe. A patchy density in the left lower lobe has improved with a new area of infiltrate involving the lingula. Peripheral infiltrate near the lung bases has increased. Pleural spaces: Posterior right-sided suspected pleural thickening versus a trace stable effusion. Heart: Unremarkable. No cardiomegaly. No pericardial effusion. Aorta: Ectatic ascending aorta 37 mm. Lymph nodes: There are numerous lymph nodes in the mediastinum however, they all measure 1 cm or less in short axis. The appearance of these lymph nodes appear larger than the previous examination. Gallbladder and bile ducts: There is biliary dilatation up to 13 mm. This appears stable as well. Kidneys and ureters: Stable numerous renal calcifications as well as renal cysts. Bones/joints: The spine is stable. Soft tissues: Unremarkable. Other findings: Extensive vascular calcifications. IMPRESSION: 1. Infiltrates noted minimally improved in the left base stable in the right upper lobe and left upper lobe but slightly worse in the bases. 2. Slightly more prominent adenopathy in the mediastinum but still less than 1 cm. 3. Stable upper abdomen as above. Electronically signed by: Salo Mackenzie On 09/02/2021 12:32:54 PM
== END ==
LOC: M RAD 10:53
PROVIDERS: ATTEND Otolaryngology
DX: C02.9 Malignant neoplasm of tongue, unspecified (principal); C73 Malignant neoplasm of thyroid gland

== ENCOUNTER → 2021-10-03 | Outpatient (CLI) | payer MEDICARE, OTHER ==
[~2021-10-03] MED LIST changes: -CEFD1CAP8 PO; +CEFD300C41 PO; -LEVO250T12 PO; +LEVO250T3 PO; +LIDOCAINE 1% MDV 20ML VIAL As Ordered ONE; +LIDOCAINE W/EPINEPHRINE 1% 20ML VIAL As Ordered ONE; +LOSA100T45 PO; -LOSA100T50 PO; +LOSA50TA28 PO; -LOSA50TA88 PO; +MIDAZOLAM INJ 2MG/2ML VIAL (J2250 PER 1MG) As Ordered ONE; +OMEP-173 PO; -OMEP-218 PO; +fentaNYL 100 MCG/2 ML INJECTION As Ordered ONE
[2021-10-03 12:02] VITALS: BP 130/65
== END ==
LOC: M IRPRO 10:10
PROVIDERS: ATTEND Surgery Vascular Surgery
DX: Z45.2 Encounter for adjustment and management of vascular access device (principal); N19 Unspecified kidney failure
CPT/HCPCS: 36589; 99152; 99153; J2250; J3010

== ENCOUNTER → 2021-10-10 | Outpatient (CLI) | payer MEDICARE, OTHER ==
[~2021-10-10] MED LIST changes: +CEFD1CAP8 PO; -CEFD300C41 PO; +LEVO250T12 PO; -LEVO250T3 PO; -LIDOCAINE 1% MDV 20ML VIAL As Ordered ONE; -LIDOCAINE W/EPINEPHRINE 1% 20ML VIAL As Ordered ONE; -LOSA100T45 PO; +LOSA100T50 PO; -LOSA50TA28 PO; +LOSA50TA88 PO; -MIDAZOLAM INJ 2MG/2ML VIAL (J2250 PER 1MG) As Ordered ONE; -OMEP-173 PO; +OMEP-218 PO; -fentaNYL 100 MCG/2 ML INJECTION As Ordered ONE
--- NOTE | 2021-10-11 18:59 | REP ---
INDICATION: MALIGNANT NEOPLASM OF TONGUE AND THYROID. COMPARISON: CT maxillofacial, CT neck and CT chest, without IV contrast, 09/02/2021. TECHNIQUE: Following the intravenous injection of 9.0 mCi of FDG and a standard uptake period, a noncontrast CT scan, followed by a PET scan were acquired along the length of the body from the base of the skull to the mid thighs. The noncontrast helical CT imaging was performed, without breath hold, for attenuation correction of PET images and anatomic correlation, but not for primary interpretation, as it is not a of standard diagnostic quality. Images were reviewed in the axial, coronal and sagittal planes. FINDINGS: Descending thoracic aorta blood pool activity level: Hepatic parenchymal soft tissue activity level: Head and neck: There is a normal distribution of FDG activity in the visualized brain parenchyma. There is fatty atrophy of the right 1/2 of the tongue and deviation of the tongue to the left consistent with hypo glossal nerve dysfunction. Additionally there is fatty atrophy of the right strap muscles. These findings are all consistent with therapy for the patient's tongue carcinoma. There are surgical clips in the right side of the neck. There is normal uptake within the soft tissues of the neck and glandular structures. There is no lymphadenopathy identified. There is calcific vascular disease of the intracranial portion of both internal carotid arteries and the left vertebral artery. There is calcific vascular disease of both carotid bifurcations. Chest: There are areas of centrilobular opacities in an upper lobe predominant distribution, some of the opacities are calcified while some are of a more ground-glass density. The appearance is consistent with metastatic pulmonary calcification secondary to end-stage renal disease. The right lung is more heavily involved than the left. There is a small right pleural effusion. The heart is enlarged. There is no pericardial effusion. There is calcific vascular disease of the thoracic aorta and coronary arteries. The aortic and mitral valves are heavily calcified. There is no adenopathy in the mediastinum, hilum or axilla by size criterion or metabolic activity. There is florid gynecomastia bilaterally. Abdomen and pelvis: There is a normal distribution of FDG activity within the gastrointestinal and genitourinary tract. No evidence of lymphadenopathy. There is calcific vascular disease of the abdominal aorta. The [place] kidneys are severely atrophic. 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 Musculoskeletal: There are no suspicious hypermetabolic, osteolytic or osteo sclerotic lesions. There is a left total hip arthroplasty. 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 There has been resorption of the right femoral head and there is erosion of the right acetabulum. The appearance of the right hip region is not significantly changed since the CT examination of 12/11/2018. IMPRESSION: 1. There are no foci of abnormal FDG activity to suggest neoplastic disease. 2. Stable post therapy changes in the tongue and neck. 3. Other findings as noted. <Electronically signed by Orion Cintron > 10/11/21 [id number]
== END ==
LOC: M PLARAD 10:10
PROVIDERS: ATTEND Internal Medicine Nephrology
DX: Z85.810 Personal history of malignant neoplasm of tongue (principal); Z85.850 Personal history of malignant neoplasm of thyroid
CPT/HCPCS: 78815; A9552

== ENCOUNTER → 2022-04-20 | Outpatient (CLI) | payer MEDICARE, OTHER ==
[~2022-04-20] MED LIST changes: -CEFD1CAP8 PO; +CEFD300C41 PO; -LEVO250T12 PO; +LEVO250T3 PO; +LOSA100T45 PO; -LOSA100T50 PO; +LOSA50TA28 PO; -LOSA50TA88 PO; +OMEP-173 PO; -OMEP-218 PO
[2022-04-20 10:56] LABS: HEMATOCRIT 24.4 % (42.0-52.0); HEMOGLOBIN 8.5 g/dl (13.5-17.5); MEAN CORPUSCULAR HEMOGLOBIN 37.1 pg (27.0-33.0); MEAN CORPUSCULAR HGB CONC 34.8 g/dl (32.0-36.5); MEAN CORPUSCULAR VOLUME 106.6 fl (80.0-96.0); PLATELET COUNT, AUTOMATED 142 10^3/uL (150-450); RED BLOOD COUNT 2.29 10^6/uL (4.30-6.10); WHITE BLOOD COUNT 4.8 10^3/uL (4.0-10.0)
[2022-04-20 10:59] LABS: APPEARANCE, URINE HAZY (CLEAR); BACTERIA, URINE AUTO NEGATIVE (NEGATIVE); BILIRUBIN, URINE AUTO NEGATIVE (NEGATIVE); BLOOD, URINE BLOOD NEGATIVE (NEGATIVE); COLOR, URINE YELLOW (YELLOW); GLUCOSE, URINE (UA) AUTO NEGATIVE (NEGATIVE); KETONE, URINE AUTO NEGATIVE (NEGATIVE); LEUKOCYTE ESTERASE, URINE AUTO NEGATIVE (NEGATIVE); NITRITE, URINE AUTO NEGATIVE (NEGATIVE); PROTEIN, URINE AUTO NEGATIVE (NEGATIVE); RBC, URINE AUTO 0 /HPF (0-3); SPECIFIC GRAVITY URINE AUTO 1.015 (1.002-1.035); SQUAMOUS EPITHELIAL CELL UR AU 0 /HPF (0-6); UROBILINOGEN, URINE AUTO 0.2 mg/dL (0.0-2.0); WBC, URINE AUTO 0 /HPF (0-3)
[2022-04-20 11:27] LABS: CREATININE,RANDOM URINE 63.8 MG/DL; TOTAL PROTEIN,RANDOM URINE 12.8 MG/DL (0.0-12.0)
[2022-04-20 11:33] LABS: BILIRUBIN,DIRECT 0.2 MG/DL (0.0-0.2); BILIRUBIN,TOTAL 0.5 MG/DL (0.2-1.0); CALCIUM LEVEL 9.2 MG/DL (8.8-10.2); CREATININE FOR GFR 1.74 MG/DL (0.70-1.30); GLOMERULAR FILTRATION RATE 42.1 (>49); MAGNESIUM LEVEL 2.1 MG/DL (1.8-2.4); PHOSPHORUS LEVEL 3.8 MG/DL (2.5-4.9); POTASSIUM SERUM 4.1 MEQ/L (3.5-5.1); TOTAL PROTEIN 6.5 GM/DL (6.4-8.2)
[2022-04-23 23:06] LABS: CMV QUANT DNA PCR (PLASMA) Negative (Negative)
== END ==
LOC: M LAB 09:41
DX: R80.9 Proteinuria, unspecified (principal); Z94.0 Kidney transplant status

== ENCOUNTER → 2022-05-02 | Outpatient (CLI) | payer MEDICARE, OTHER ==
[2022-05-02 08:47] LABS: APPEARANCE, URINE HAZY (CLEAR); BACTERIA, URINE AUTO NEGATIVE (NEGATIVE); BILIRUBIN, URINE AUTO NEGATIVE (NEGATIVE); BLOOD, URINE BLOOD NEGATIVE (NEGATIVE); COLOR, URINE YELLOW (YELLOW); GLUCOSE, URINE (UA) AUTO NEGATIVE (NEGATIVE); KETONE, URINE AUTO NEGATIVE (NEGATIVE); LEUKOCYTE ESTERASE, URINE AUTO NEGATIVE (NEGATIVE); NITRITE, URINE AUTO NEGATIVE (NEGATIVE); PROTEIN, URINE AUTO NEGATIVE (NEGATIVE); RBC, URINE AUTO 0 /HPF (0-3); SQUAMOUS EPITHELIAL CELL UR AU 0 /HPF (0-6); UROBILINOGEN, URINE AUTO 0.2 mg/dL (0.0-2.0); WBC, URINE AUTO 1 /HPF (0-3)
[2022-05-02 08:52] LABS: HEMATOCRIT 26.7 % (42.0-52.0); HEMOGLOBIN 9.4 g/dl (13.5-17.5); MEAN CORPUSCULAR HEMOGLOBIN 36.3 pg (27.0-33.0); MEAN CORPUSCULAR HGB CONC 35.2 g/dl (32.0-36.5); MEAN CORPUSCULAR VOLUME 103.1 fl (80.0-96.0); PLATELET COUNT, AUTOMATED 186 10^3/uL (150-450); RED BLOOD COUNT 2.59 10^6/uL (4.30-6.10)
[2022-05-02 09:23] LABS: ALT/SGPT 26 U/L (12-78); BILIRUBIN,DIRECT 0.2 MG/DL (0.0-0.2); BILIRUBIN,TOTAL 0.5 MG/DL (0.2-1.0); BLOOD UREA NITROGEN 58 MG/DL (7-18); CALCIUM LEVEL 9.9 MG/DL (8.8-10.2); CARBON DIOXIDE LEVEL 28 MEQ/L (21-32); CHLORIDE LEVEL 87 MEQ/L (98-107); CREATININE FOR GFR 1.27 MG/DL (0.70-1.30); GLOMERULAR FILTRATION RATE > 60.0 (>49); GLUCOSE, FASTING 108 MG/DL (70-100); LDH LACTATE DEHYDROGENASE 215 U/L (87-241); PHOSPHORUS LEVEL 3.5 MG/DL (2.5-4.9); POTASSIUM SERUM 4.3 MEQ/L (3.5-5.1); SODIUM LEVEL 122 MEQ/L (136-145); TOTAL PROTEIN 6.4 GM/DL (6.4-8.2); URIC ACID 5.6 MG/DL (3.5-7.2)
[2022-05-02 09:29] LABS: CREATININE, URINE 41.7 MG/DL; CREATININE,RANDOM URINE 41.7 MG/DL; MALB URINE SIEMENS < 5.0 MG/L; MAU/CREAT RATIO 11.9 MCG/MG (0.0-30.0)
== END ==
LOC: M LAB 07:57
DX: Z79.52 Long term (current) use of systemic steroids (principal); Z79.899 Other long term (current) drug therapy

== ENCOUNTER → 2022-05-11 | Outpatient (CLI) | payer MEDICARE, OTHER ==
[2022-05-11 08:31] LABS: APPEARANCE, URINE HAZY (CLEAR); BACTERIA, URINE AUTO NEGATIVE (NEGATIVE); BILIRUBIN, URINE AUTO NEGATIVE (NEGATIVE); BLOOD, URINE BLOOD NEGATIVE (NEGATIVE); COLOR, URINE YELLOW (YELLOW); GLUCOSE, URINE (UA) AUTO NEGATIVE (NEGATIVE); HEMATOCRIT 24.4 % (42.0-52.0); HEMOGLOBIN 8.7 g/dl (13.5-17.5); KETONE, URINE AUTO NEGATIVE (NEGATIVE); LEUKOCYTE ESTERASE, URINE AUTO NEGATIVE (NEGATIVE); MEAN CORPUSCULAR HEMOGLOBIN 36.9 pg (27.0-33.0); MEAN CORPUSCULAR HGB CONC 35.7 g/dl (32.0-36.5); MEAN CORPUSCULAR VOLUME 103.4 fl (80.0-96.0); MUCUS, URINE SMALL (NEGATIVE); NITRITE, URINE AUTO NEGATIVE (NEGATIVE); PLATELET COUNT, AUTOMATED 166 10^3/uL (150-450); PROTEIN, URINE AUTO NEGATIVE (NEGATIVE); RBC, URINE AUTO 0 /HPF (0-3); RED BLOOD COUNT 2.36 10^6/uL (4.30-6.10); SQUAMOUS EPITHELIAL CELL UR AU 0 /HPF (0-6); UROBILINOGEN, URINE AUTO 0.2 mg/dL (0.0-2.0); WBC, URINE AUTO 1 /HPF (0-3); WHITE BLOOD COUNT 4.1 10^3/uL (4.0-10.0)
[2022-05-11 08:47] LABS: HEMOGLOBIN A1c 4.9 %
[2022-05-11 08:53] LABS: CREATININE,RANDOM URINE 44.5 MG/DL; TOTAL PROTEIN,RANDOM URINE 10.9 MG/DL (0.0-12.0)
[2022-05-11 08:55] LABS: ALBUMIN 3.8 GM/DL (3.2-5.2); BILIRUBIN,DIRECT 0.2 MG/DL (0.0-0.2); BILIRUBIN,TOTAL 0.4 MG/DL (0.2-1.0); CREATININE FOR GFR 1.54 MG/DL (0.70-1.30); GLOMERULAR FILTRATION RATE 48.5 (>49); MAGNESIUM LEVEL 1.9 MG/DL (1.8-2.4); PHOSPHORUS LEVEL 3.7 MG/DL (2.5-4.9); POTASSIUM SERUM 4.1 MEQ/L (3.5-5.1); TOTAL PROTEIN 6.2 GM/DL (6.4-8.2); URIC ACID 5.7 MG/DL (3.5-7.2)
== END ==
LOC: M LAB 07:07
PROVIDERS: ATTEND Internal Medicine Nephrology
DX: R80.9 Proteinuria, unspecified (principal); Z79.52 Long term (current) use of systemic steroids; Z51.81 Encounter for therapeutic drug level monitoring; Z94.0 Kidney transplant status; Z79.899 Other long term (current) drug therapy

== ENCOUNTER → 2022-05-18 | Outpatient (CLI) | payer MEDICARE, OTHER ==
[2022-05-18 12:52] LABS: APPEARANCE, URINE CLEAR (CLEAR); BACTERIA, URINE AUTO NEGATIVE (NEGATIVE); BILIRUBIN, URINE AUTO NEGATIVE (NEGATIVE); BLOOD, URINE BLOOD NEGATIVE (NEGATIVE); COLOR, URINE YELLOW (YELLOW); GLUCOSE, URINE (UA) AUTO NEGATIVE (NEGATIVE); KETONE, URINE AUTO NEGATIVE (NEGATIVE); LEUKOCYTE ESTERASE, URINE AUTO NEGATIVE (NEGATIVE); NITRITE, URINE AUTO NEGATIVE (NEGATIVE); PROTEIN, URINE AUTO NEGATIVE (NEGATIVE); RBC, URINE AUTO 0 /HPF (0-3); SPECIFIC GRAVITY URINE AUTO 1.006 (1.002-1.035); SQUAMOUS EPITHELIAL CELL UR AU 0 /HPF (0-6); UROBILINOGEN, URINE AUTO 0.2 mg/dL (0.0-2.0); WBC, URINE AUTO 0 /HPF (0-3)
[2022-05-18 13:01] LABS: HEMATOCRIT 27.8 % (42.0-52.0); HEMOGLOBIN 9.4 g/dl (13.5-17.5); MEAN CORPUSCULAR HGB CONC 33.8 g/dl (32.0-36.5); MEAN CORPUSCULAR VOLUME 106.5 fl (80.0-96.0); PLATELET COUNT, AUTOMATED 202 10^3/uL (150-450); RED BLOOD COUNT 2.61 10^6/uL (4.30-6.10); WHITE BLOOD COUNT 7.2 10^3/uL (4.0-10.0)
[2022-05-18 13:27] LABS: CREATININE,RANDOM URINE 16.4 MG/DL; TOTAL PROTEIN,RANDOM URINE 11.5 MG/DL (0.0-12.0)
[2022-05-18 13:28] LABS: ALBUMIN 4.4 GM/DL (3.2-5.2); BILIRUBIN,DIRECT 0.2 MG/DL (0.0-0.2); BILIRUBIN,TOTAL 0.6 MG/DL (0.2-1.0); CALCIUM LEVEL 9.8 MG/DL (8.8-10.2); CREATININE FOR GFR 1.47 MG/DL (0.70-1.30); GLOMERULAR FILTRATION RATE 51.2 (>49); MAGNESIUM LEVEL 2.1 MG/DL (1.8-2.4); PHOSPHORUS LEVEL 4.1 MG/DL (2.5-4.9); POTASSIUM SERUM 4.4 MEQ/L (3.5-5.1); TOTAL PROTEIN 6.9 GM/DL (6.4-8.2); URIC ACID 5.5 MG/DL (3.5-7.2)
== END ==
LOC: M LAB 11:49
PROVIDERS: ATTEND Internal Medicine Nephrology
DX: R50.9 Fever, unspecified (principal); Z79.52 Long term (current) use of systemic steroids; Z51.81 Encounter for therapeutic drug level monitoring; Z94.0 Kidney transplant status

== ENCOUNTER → 2022-05-18 | Outpatient (CLI) | payer MEDICARE, OTHER ==
[2022-05-18 13:52] LABS: PERCENT SATURATION 30.6 % (19.7-50.0)
== END ==
LOC: M LAB 11:45
DX: D50.9 Iron deficiency anemia, unspecified (principal); Z94.0 Kidney transplant status

== ENCOUNTER → 2022-06-01 | Outpatient (REF) | payer MEDICARE, OTHER ==
[2022-06-01 18:35] LABS: FREE T4 1.52 NG/DL (0.76-1.46); THYROID STIMULATING HORMONE 22.2 uIU/ML (0.358-3.740)
== END ==
LOC: M LAB REF 16:56
PROVIDERS: ATTEND Internal Medicine Nephrology
DX: E03.9 Hypothyroidism, unspecified (principal)

== ENCOUNTER → 2022-06-07 | Outpatient (CLI) | payer MEDICARE, OTHER ==
[~2022-06-07] MED LIST changes: +LEVO1TAB38 PO; -LEVO250T3 PO
[2022-06-07 15:59] LABS: PERCENT SATURATION 36.7 % (19.7-50.0)
== END ==
LOC: M LAB 11:16
DX: D50.9 Iron deficiency anemia, unspecified (principal); Z94.0 Kidney transplant status

== ENCOUNTER → 2022-06-28 | Outpatient (CLI) | payer MEDICARE, OTHER ==
[2022-06-28 09:08] LABS: BASO % 0.2 % (0.0-1.0); EOS % 0.4 % (0.0-3.0); HEMATOCRIT 28.8 % (42.0-52.0); HEMOGLOBIN 9.5 g/dl (13.5-17.5); LYMPH # 0.2 10^3/uL (1.5-5.0); LYMPH % 3.1 % (24.0-44.0); MEAN CORPUSCULAR HEMOGLOBIN 35.6 pg (27.0-33.0); MEAN CORPUSCULAR VOLUME 107.9 fl (80.0-96.0); MONO # 0.3 10^3/uL (0.0-0.8); MONO % 5.2 % (2.0-8.0); NEUTROPHILS # 4.7 10^3/uL (1.5-8.5); NEUTROPHILS % 90.5 % (36.0-66.0); PLATELET COUNT, AUTOMATED 168 10^3/uL (150-450); RED BLOOD COUNT 2.67 10^6/uL (4.30-6.10); WHITE BLOOD COUNT 5.2 10^3/uL (4.0-10.0)
[2022-06-28 09:12] LABS: APPEARANCE, URINE MANUAL CLEAR (CLEAR); BILIRUBIN, URINE MANUAL NEGATIVE (NEGATIVE); BLOOD URINE MANUAL NEGATIVE (NEGATIVE); COLOR, URINE MANUAL YELLOW (YELLOW); GLUCOSE, URINE (UA) MANUAL NEGATIVE (NEGATIVE); KETONE, URINE MANUAL NEGATIVE (NEGATIVE); LEUKOCYTE ESTERASE, URINE MAN NEGATIVE (NEGATIVE); NITRITE, URINE MANUAL NEGATIVE (NEGATIVE); PH,URINE MAN 6.5 UNITS (5.0 - 7.0); PROTEIN, URINE MANUAL NEGATIVE (NEGATIVE); UROBILINOGEN, URINE MANUAL NORMAL (NORMAL)
[2022-06-28 09:51] LABS: CREATININE,RANDOM URINE 80.5 MG/DL; TOTAL PROTEIN,RANDOM URINE 13.3 MG/DL (0.0-12.0)
[2022-06-28 09:54] LABS: ALBUMIN 4.3 GM/DL (3.2-5.2); BILIRUBIN,DIRECT 0.3 MG/DL (0.0-0.2); BILIRUBIN,TOTAL 0.7 MG/DL (0.2-1.0); CALCIUM LEVEL 9.3 MG/DL (8.8-10.2); CREATININE FOR GFR 1.49 MG/DL (0.70-1.30); GLOMERULAR FILTRATION RATE 50.4 (>49); PHOSPHORUS LEVEL 3.4 MG/DL (2.5-4.9); POTASSIUM SERUM 4.3 MEQ/L (3.5-5.1); TOTAL PROTEIN 6.5 GM/DL (6.4-8.2)
== END ==
LOC: M LAB 07:44
DX: Z51.81 Encounter for therapeutic drug level monitoring (principal); E78.5 Hyperlipidemia, unspecified; N39.0 Urinary tract infection, site not specified; D63.1 Anemia in chronic kidney disease; R80.9 Proteinuria, unspecified

== ENCOUNTER → 2022-07-13 | Outpatient (CLI) | payer MEDICARE, OTHER | LOC: M RAD 12:43 | PROVIDERS: ATTEND Surgery Vascular Surgery | DX: Z99.2 Dependence on renal dialysis (principal); I87.1 Compression of vein; R22.31 Localized swelling, mass and lump, right upper limb ==

== ENCOUNTER → 2022-08-11 | Outpatient (CLI) | payer MEDICARE, OTHER ==
[2022-08-11 09:12] LABS: HEMATOCRIT 27.7 % (42.0-52.0); HEMOGLOBIN 8.9 g/dl (13.5-17.5); MEAN CORPUSCULAR HGB CONC 32.1 g/dl (32.0-36.5); MEAN CORPUSCULAR VOLUME 112.1 fl (80.0-96.0); PLATELET COUNT, AUTOMATED 153 10^3/uL (150-450); RED BLOOD COUNT 2.47 10^6/uL (4.30-6.10); WHITE BLOOD COUNT 4.7 10^3/uL (4.0-10.0)
[2022-08-11 09:41] LABS: APPEARANCE, URINE MANUAL CLEAR (CLEAR); COLOR, URINE MANUAL YELLOW (YELLOW)
[2022-08-11 09:42] LABS: BILIRUBIN, URINE MANUAL NEGATIVE (NEGATIVE); BLOOD URINE MANUAL NEGATIVE (NEGATIVE); GLUCOSE, URINE (UA) MANUAL NEGATIVE (NEGATIVE); KETONE, URINE MANUAL NEGATIVE (NEGATIVE); LEUKOCYTE ESTERASE, URINE MAN NEGATIVE (NEGATIVE); NITRITE, URINE MANUAL NEGATIVE (NEGATIVE); PROTEIN, URINE MANUAL NEGATIVE (NEGATIVE); SPECIFIC GRAVITY,URINE MANUAL 1.005 (1.002-1.035); UROBILINOGEN, URINE MANUAL NORMAL (NORMAL)
[2022-08-11 09:51] LABS: CREATININE,RANDOM URINE 58.3 MG/DL; TOTAL PROTEIN,RANDOM URINE 9.2 MG/DL (0.0-12.0)
[2022-08-11 09:52] LABS: ALBUMIN 4.1 GM/DL (3.2-5.2); BILIRUBIN,DIRECT 0.2 MG/DL (0.0-0.2); BILIRUBIN,TOTAL 0.6 MG/DL (0.2-1.0); CALCIUM LEVEL 9.4 MG/DL (8.8-10.2); CREATININE FOR GFR 1.51 MG/DL (0.70-1.30); GLOMERULAR FILTRATION RATE 49.6 (>49); MAGNESIUM LEVEL 2.1 MG/DL (1.8-2.4); POTASSIUM SERUM 4.2 MEQ/L (3.5-5.1); TOTAL PROTEIN 6.5 GM/DL (6.4-8.2); URIC ACID 6.1 MG/DL (3.5-7.2)
== END ==
LOC: M RAD 08:10
PROVIDERS: ATTEND Surgery Vascular Surgery
DX: R22.31 Localized swelling, mass and lump, right upper limb (principal); Z48.22 Encounter for aftercare following kidney transplant; M50.20 Other cervical disc displacement, unspecified cervical region

== ENCOUNTER → 2022-09-07 | Outpatient (REF) | payer MEDICARE, OTHER ==
[2022-09-07 18:43] LABS: FREE T4 1.32 NG/DL (0.76-1.46); THYROID STIMULATING HORMONE 8.8 uIU/ML (0.358-3.740)
== END ==
LOC: M LAB REF 17:01
PROVIDERS: ATTEND Internal Medicine Nephrology
DX: E03.9 Hypothyroidism, unspecified (principal); D50.9 Iron deficiency anemia, unspecified

== ENCOUNTER → 2022-09-12 | Outpatient (CLI) | payer MEDICARE, OTHER ==
[~2022-09-12] MED LIST changes: +BUME1TAB3 GT; +CALC1SOL GT; +CEFTINJ2 IV; +FAMO20TA PO; +FERR5MLUD GT; +IPRA0.00 NEB; +LEVO2TA GT; +METO25TA4 GT; +MYCO1SUS GT; +NEPR1LIQ2 GT; +NYST-38 PO; +NYST10006 TOP; +PERC7.5T11 GT; +PRAV20TA2 GT; +SYNT50TA GT; +TACR1GRA GT; +VANC750I IV; +VITMTA GT
[2022-09-12 09:57] LABS: BASO % 0.1 % (0.0-1.0); EOS % 0.1 % (0.0-3.0); HEMATOCRIT 23.3 % (42.0-52.0); HEMOGLOBIN 7.6 g/dl (13.5-17.5); LYMPH # 0.1 10^3/uL (1.5-5.0); LYMPH % 0.5 % (24.0-44.0); MEAN CORPUSCULAR HEMOGLOBIN 34.4 pg (27.0-33.0); MEAN CORPUSCULAR HGB CONC 32.6 g/dl (32.0-36.5); MEAN CORPUSCULAR VOLUME 105.4 fl (80.0-96.0); MONO # 0.2 10^3/uL (0.0-0.8); MONO % 1.8 % (2.0-8.0); NEUTROPHILS # 9.5 10^3/uL (1.5-8.5); NEUTROPHILS % 96.9 % (36.0-66.0); PLATELET COUNT, AUTOMATED 190 10^3/uL (150-450); RED BLOOD COUNT 2.21 10^6/uL (4.30-6.10); WHITE BLOOD COUNT 9.8 10^3/uL (4.0-10.0)
[2022-09-12 09:59] LABS: APPEARANCE, URINE MANUAL CLEAR (CLEAR); BILIRUBIN, URINE MANUAL NEGATIVE (NEGATIVE); COLOR, URINE MANUAL YELLOW (YELLOW); GLUCOSE, URINE (UA) MANUAL NEGATIVE (NEGATIVE); KETONE, URINE MANUAL NEGATIVE (NEGATIVE); PROTEIN, URINE MANUAL NEGATIVE (NEGATIVE); UROBILINOGEN, URINE MANUAL NORMAL (NORMAL)
[2022-09-12 10:00] LABS: BLOOD URINE MANUAL NEGATIVE (NEGATIVE); LEUKOCYTE ESTERASE, URINE MAN NEGATIVE (NEGATIVE); NITRITE, URINE MANUAL NEGATIVE (NEGATIVE)
[2022-09-12 11:17] LABS: CREATININE,RANDOM URINE 85.9 MG/DL; TOTAL PROTEIN,RANDOM URINE 11.6 MG/DL (0.0-12.0)
[2022-09-12 11:26] LABS: CREATININE FOR GFR 2.43 MG/DL (0.70-1.30); GLOMERULAR FILTRATION RATE 28.7 (>49); POTASSIUM SERUM 4.6 MEQ/L (3.5-5.1)
[2022-09-12 11:27] LABS: ALBUMIN 3.5 GM/DL (3.2-5.2); BILIRUBIN,DIRECT 0.2 MG/DL (0.0-0.2); BILIRUBIN,TOTAL 0.6 MG/DL (0.2-1.0); CALCIUM LEVEL 8.7 MG/DL (8.8-10.2); MAGNESIUM LEVEL 1.8 MG/DL (1.8-2.4); PHOSPHORUS LEVEL 3.7 MG/DL (2.5-4.9); TOTAL PROTEIN 6.2 GM/DL (6.4-8.2)
== END ==
LOC: M LAB 08:31
PROVIDERS: ATTEND Nurse Practitioner Family
DX: N39.0 Urinary tract infection, site not specified (principal); D63.1 Anemia in chronic kidney disease; E78.5 Hyperlipidemia, unspecified; R80.9 Proteinuria, unspecified; Z51.81 Encounter for therapeutic drug level monitoring; Z94.0 Kidney transplant status; N18.9 Chronic kidney disease, unspecified

== ENCOUNTER 2022-09-14 22:12 | Inpatient (IN) | payer MEDICARE, OTHER ==
[~2022-09-14] VITALS: Ht 167.6 cm; Wt 73.1 kg
[~2022-09-14 22:12] MED LIST changes: -BUME1TAB3 GT; -CALC1SOL GT; -CEFTINJ2 IV; -FAMO20TA PO; -FERR5MLUD GT; -IPRA0.00 NEB; -LEVO2TA GT; -METO25TA4 GT; -MYCO1SUS GT; -NEPR1LIQ2 GT; -NYST-38 PO; -NYST10006 TOP; -PERC7.5T11 GT; -PRAV20TA2 GT; -SYNT50TA GT; -TACR1GRA GT; -VANC750I IV; -VITMTA GT
[2022-09-15 00:30] LABS: HEMATOCRIT 27.1 % (42.0-52.0); LYMPH # 0.1 10^3/uL (1.5-5.0); LYMPH % 1.1 % (24.0-44.0); MEAN CORPUSCULAR HEMOGLOBIN 34.5 pg (27.0-33.0); MEAN CORPUSCULAR HGB CONC 33.2 g/dl (32.0-36.5); MEAN CORPUSCULAR VOLUME 103.8 fl (80.0-96.0); MONO # 0.3 10^3/uL (0.0-0.8); MONO % 2.9 % (2.0-8.0); NEUTROPHILS # 8.9 10^3/uL (1.5-8.5); NEUTROPHILS % 95.6 % (36.0-66.0); PLATELET COUNT, AUTOMATED 235 10^3/uL (150-450); RED BLOOD COUNT 2.61 10^6/uL (4.30-6.10); WHITE BLOOD COUNT 9.4 10^3/uL (4.0-10.0)
[2022-09-15 00:52] LABS: ALBUMIN 3.8 GM/DL (3.2-5.2); BILIRUBIN,DIRECT 0.2 MG/DL (0.0-0.2); BILIRUBIN,TOTAL 0.6 MG/DL (0.2-1.0); CALCIUM LEVEL 9.2 MG/DL (8.8-10.2); CREATININE FOR GFR 2.06 MG/DL (0.70-1.30); GLOMERULAR FILTRATION RATE 34.7 (>49); POTASSIUM SERUM 4.4 MEQ/L (3.5-5.1); THYROID STIMULATING HORMONE 5.48 uIU/ML (0.358-3.740); THYROXINE (T4) 11.1 UG/DL (4.5-12.0); TOTAL PROTEIN 6.7 GM/DL (6.4-8.2)
[2022-09-15 00:59] LABS: CK-MB VALUE MASS 1.6 NG/ML (<3.6); MB/CK RELATIVE INDEX 2.39 (< OR =4)
[2022-09-15 01:05] LABS: VENOUS BASE EXCESS 3.6 (-2.0-2.0); VENOUS HCO3 26.7 MEQ/L (23.0-27.0); VENOUS O2 SATURATION 98.5 % (60.0-80.0); VENOUS PARTIAL PRESSURE CO2 34.6 mmHg (38.0-50.0); VENOUS PARTIAL PRESSURE O2 141.7 mmHg (30.0-50.0); VENOUS PH 7.506 UNITS (7.330-7.430); VENOUS STANDARD HCO3 27.8 MEQ/L; VENOUS TOTAL CO2 27.8 MEQ/L (24.0-28.0)
[2022-09-15 01:14] LABS: INR 1.23; PROTHROMBIN TIME 15.7 SECONDS (12.5-14.5)
[2022-09-15] MEDS ORDERED: cefTRIAXone SOD 1 GM in D5W MINI-BAG PLUS 50 ML IV ONE (01:40)
[2022-09-15] MEDS ORDERED: DEXTROSE 50% 50 ML SYRINGE IV PRN (03:00)
[2022-09-15] MEDS ORDERED: GLUCOSE 4GM CHEW TABLET PO PRN (03:00)
[2022-09-15] MEDS ORDERED: GLUCAGON INJ 1MG VIAL SC PRN (03:00)
[2022-09-15] MEDS: DOXYCYCLINE HYCLATE 100 MG in D5W MINI-BAG PLUS 100 ML IV SCH ×2 (04:05→16:34)
[2022-09-15] MEDS ORDERED: VITMTA GT (05:47)
[2022-09-15] MEDS ORDERED: METO25TA4 GT (05:47)
[2022-09-15] MEDS ORDERED: PRAV20TA2 GT (05:47)
[2022-09-15] MEDS ORDERED: PERC7.5T11 GT (05:47)
[2022-09-15] MEDS ORDERED: BUME1TAB3 GT (05:47)
[2022-09-15] MEDS ORDERED: FAMO20TA PO (05:47)
[2022-09-15] MEDS ORDERED: CALC1SOL GT (05:47)
[2022-09-15] MEDS ORDERED: NEPR1LIQ2 GT (05:47)
[2022-09-15] MEDS ORDERED: SYNT50TA GT (05:47)
[2022-09-15] MEDS ORDERED: MYCO1SUS GT (05:47)
[2022-09-15] MEDS ORDERED: TACR1GRA GT (05:47)
[2022-09-15] MEDS ORDERED: LEVO2TA GT (05:47)
[2022-09-15] MEDS ORDERED: HOME MED LIST COMPLETE! XX SCH (05:50)
[2022-09-15] MEDS ORDERED: LEVOTHYROXINE 50MCG TABLET (0.05MG) PO SCH (06:00)
[2022-09-15] MEDS ORDERED: LEVOTHYROXINE 100MCG TABLET (0.1MG) PO SCH (06:00)
[2022-09-15] MEDS: HEPARIN SOD (PORCINE) 5000UNITS/ML 1ML VIAL/SYRINGE SC SCH ×4 (06:04→22:21)
[2022-09-15] MEDS ORDERED: IPRATROPIUM 0.5MG/ALBUTEROL 2.5MG INH SOL UD 3ML (DUONEB) NEB PRN (06:40)
[2022-09-15] MEDS: INSULIN LISPRO (NovoLOG) PER UNIT SC SCH ×4 (07:30→21:00)
[2022-09-15] MEDS ORDERED: MYCOPHENOLATE 200 MG/ML PO SCH (09:00)
[2022-09-15] MEDS ORDERED: METOPROLOL TART 12.5 MG PER 1/2 TAB PO SCH (09:00)
[2022-09-15] MEDS: PROGRAF 1 MG PO SCH ×2 (09:00→21:00)
[2022-09-15] MEDS ORDERED: [UNRECOGNIZED DRUG - OTHER] PO SCH (09:00)
[2022-09-15] MEDS ORDERED: FAMOTIDINE 20 MG TAB PO SCH (09:00)
[2022-09-15] MEDS ORDERED: BUMETANIDE 1 MG TAB PO SCH ×2 (09:00)
[2022-09-15 09:58] LABS: BASO % 0.1 % (0.0-1.0); HEMATOCRIT 22.9 % (42.0-52.0); HEMOGLOBIN 7.7 g/dl (13.5-17.5); LYMPH # 0.1 10^3/uL (1.5-5.0); MEAN CORPUSCULAR HEMOGLOBIN 34.8 pg (27.0-33.0); MEAN CORPUSCULAR HGB CONC 33.6 g/dl (32.0-36.5); MEAN CORPUSCULAR VOLUME 103.6 fl (80.0-96.0); MONO # 0.3 10^3/uL (0.0-0.8); MONO % 3.2 % (2.0-8.0); NEUTROPHILS # 8.9 10^3/uL (1.5-8.5); NEUTROPHILS % 94.9 % (36.0-66.0); PLATELET COUNT, AUTOMATED 209 10^3/uL (150-450); RED BLOOD COUNT 2.21 10^6/uL (4.30-6.10); WHITE BLOOD COUNT 9.3 10^3/uL (4.0-10.0)
[2022-09-15] MEDS ORDERED: MYCOPHENOLATE 200 MG/ML PEG SCH (10:11)
[2022-09-15] MEDS ORDERED: [UNRECOGNIZED DRUG - OTHER] PEG SCH (10:11)
[2022-09-15 10:30] LABS: CALCIUM LEVEL 9.2 MG/DL (8.8-10.2); CREATININE FOR GFR 2.02 MG/DL (0.70-1.30); GLOMERULAR FILTRATION RATE 35.5 (>49); POTASSIUM SERUM 4.7 MEQ/L (3.5-5.1)
[2022-09-15] MEDS: cefTRIAXone SOD 2 GM in D5W MINI-BAG PLUS 50 ML IV SCH (13:40)
[2022-09-15] MEDS: MYCOPHENOLATE 200 MG/ML PEG SCH ×3 (13:40→22:21)
[2022-09-15 15:00] VITALS: O2SAT 99
[2022-09-15 15:15] VITALS: O2SAT 100
[2022-09-15 15:47] VITALS: BP 151/70
[2022-09-15 16:00] VITALS: O2SAT 95
[2022-09-15 17:00] VITALS: O2SAT 97
[2022-09-15 20:00] VITALS: BP 152/73
[2022-09-15] MEDS: PRAVASTATIN 20 MG TAB PEG SCH (22:20)
[2022-09-15] MEDS: METOPROLOL TART 12.5 MG PER 1/2 TAB PEG SCH (22:21)
[2022-09-16] VITALS (10 sets, daily range): BP systolic 142–158; BP diastolic 63–71; O2SAT 90–94
[2022-09-16] MEDS: ACETAMINOPHEN TAB 650MG DOSE (2X325MG) PO PRN ×2 (03:08→23:22)
[2022-09-16] MEDS: DOXYCYCLINE HYCLATE 100 MG in D5W MINI-BAG PLUS 100 ML IV SCH (03:08)
[2022-09-16] MEDS: LEVOTHYROXINE 100MCG TABLET (0.1MG) PEG SCH (05:36)
[2022-09-16] MEDS: LEVOTHYROXINE 50MCG TABLET (0.05MG) PEG SCH (05:36)
[2022-09-16] MEDS: HEPARIN SOD (PORCINE) 5000UNITS/ML 1ML VIAL/SYRINGE SC SCH ×3 (05:37→21:11)
[2022-09-16 07:22] LABS: HEMATOCRIT 23.4 % (42.0-52.0); HEMOGLOBIN 7.8 g/dl (13.5-17.5); LYMPH # 0.1 10^3/uL (1.5-5.0); LYMPH % 1.9 % (24.0-44.0); MEAN CORPUSCULAR HEMOGLOBIN 34.8 pg (27.0-33.0); MEAN CORPUSCULAR HGB CONC 33.3 g/dl (32.0-36.5); MEAN CORPUSCULAR VOLUME 104.5 fl (80.0-96.0); MONO # 0.2 10^3/uL (0.0-0.8); NEUTROPHILS # 4.9 10^3/uL (1.5-8.5); NEUTROPHILS % 93.2 % (36.0-66.0); PLATELET COUNT, AUTOMATED 230 10^3/uL (150-450); RED BLOOD COUNT 2.24 10^6/uL (4.30-6.10); WHITE BLOOD COUNT 5.3 10^3/uL (4.0-10.0)
[2022-09-16] MEDS: INSULIN LISPRO (NovoLOG) PER UNIT SC SCH ×4 (07:30→20:23)
[2022-09-16 07:46] LABS: CALCIUM LEVEL 8.9 MG/DL (8.8-10.2); CREATININE FOR GFR 1.99 MG/DL (0.70-1.30); GLOMERULAR FILTRATION RATE 36.1 (>49); POTASSIUM SERUM 4.6 MEQ/L (3.5-5.1)
[2022-09-16] MEDS: BUMETANIDE 1 MG TAB PEG SCH ×2 (09:00→13:00)
[2022-09-16] MEDS: PROGRAF 1 MG PO SCH ×2 (09:19→21:10)
[2022-09-16] MEDS: MYCOPHENOLATE 200 MG/ML PEG SCH ×4 (09:19→21:10)
[2022-09-16] MEDS: METOPROLOL TART 12.5 MG PER 1/2 TAB PEG SCH ×2 (09:20→21:11)
[2022-09-16] MEDS: FAMOTIDINE 20 MG TAB PEG SCH (09:20)
[2022-09-16] MEDS: cefTRIAXone SOD 2 GM in D5W MINI-BAG PLUS 50 ML IV SCH (14:29)
[2022-09-16 16:08] LABS: MYCOPLASMA PNEUMONIAE IgG 473 U/mL (0-99); MYCOPLASMA PNEUMONIAE IgM <770 U/mL (0-769)
[2022-09-16] MEDS ORDERED: VANCOMYCIN HCL 750 MG, VIAL MATE ADAPTER 1 EACH in D5W 250 ML IV ONE (21:00)
[2022-09-16] MEDS: PRAVASTATIN 20 MG TAB PEG SCH (21:11)
[2022-09-16] MEDS ORDERED: VANCOMYCIN HCL 500 MG in D5W MINI-BAG PLUS 100 ML IV ONE (22:00)
[2022-09-17] VITALS (23 sets, daily range): BP systolic 104–135; BP diastolic 57–87; O2SAT 91–100
[2022-09-17] MEDS: LEVOTHYROXINE 100MCG TABLET (0.1MG) PEG SCH (05:44)
[2022-09-17] MEDS: HEPARIN SOD (PORCINE) 5000UNITS/ML 1ML VIAL/SYRINGE SC SCH ×3 (05:44→22:20)
[2022-09-17] MEDS: LEVOTHYROXINE 50MCG TABLET (0.05MG) PEG SCH (05:44)
[2022-09-17 06:57] LABS: EOS % 0.5 % (0.0-3.0); HEMATOCRIT 23.9 % (42.0-52.0); HEMOGLOBIN 7.9 g/dl (13.5-17.5); LYMPH # 0.1 10^3/uL (1.5-5.0); LYMPH % 1.8 % (24.0-44.0); MEAN CORPUSCULAR HEMOGLOBIN 34.5 pg (27.0-33.0); MEAN CORPUSCULAR HGB CONC 33.1 g/dl (32.0-36.5); MEAN CORPUSCULAR VOLUME 104.4 fl (80.0-96.0); MONO # 0.2 10^3/uL (0.0-0.8); MONO % 5.1 % (2.0-8.0); NEUTROPHILS # 3.6 10^3/uL (1.5-8.5); NEUTROPHILS % 92.1 % (36.0-66.0); PLATELET COUNT, AUTOMATED 252 10^3/uL (150-450); RED BLOOD COUNT 2.29 10^6/uL (4.30-6.10); WHITE BLOOD COUNT 3.9 10^3/uL (4.0-10.0)
[2022-09-17] MEDS: INSULIN LISPRO (NovoLOG) PER UNIT SC SCH ×4 (07:30→20:04)
[2022-09-17 07:50] LABS: C REACTIVE PROTEIN QUANTITATIV 17.8 MG/DL (0.00-0.30); CALCIUM LEVEL 9.1 MG/DL (8.8-10.2); CREATININE FOR GFR 1.85 MG/DL (0.70-1.30); GLOMERULAR FILTRATION RATE 39.3 (>49); PERCENT SATURATION 11.3 % (19.7-50.0)
[2022-09-17 07:52] LABS: ERYTHROCYTE SEDIMENTATION RATE 126 mm/hr (0-20)
[2022-09-17] MEDS: MYCOPHENOLATE 200 MG/ML PEG SCH ×4 (08:46→20:15)
[2022-09-17] MEDS: NYSTATIN 500,000 U/5 ML SUSP UDC PO SCH ×4 (08:46→20:15)
[2022-09-17] MEDS: PROGRAF 1 MG PO SCH ×2 (08:46→20:16)
[2022-09-17] MEDS: METOPROLOL TART 12.5 MG PER 1/2 TAB PEG SCH ×2 (08:47→20:15)
[2022-09-17] MEDS: FAMOTIDINE 20 MG TAB PEG SCH (08:47)
[2022-09-17] MEDS: BUMETANIDE 1 MG TAB PEG SCH (08:47)
[2022-09-17] MEDS: VANCOMYCIN HCL 750 MG, VIAL MATE ADAPTER 1 EACH in D5W 250 ML IV SCH (11:03)
[2022-09-17] MEDS: cefTRIAXone SOD 2 GM in D5W MINI-BAG PLUS 50 ML IV SCH (14:09)
[2022-09-17] MEDS ORDERED: NYSTATIN 100,000 UNITS/GM TOPICAL PWD 15 GM TOP PRN (19:55)
[2022-09-17] MEDS: PRAVASTATIN 20 MG TAB PEG SCH (20:16)
[2022-09-18] VITALS (15 sets, daily range): BP systolic 105–138; BP diastolic 58–65; O2SAT 90–100
[2022-09-18 05:26] LABS: BASO % 0.3 % (0.0-1.0); EOS % 1.3 % (0.0-3.0); HEMATOCRIT 26.1 % (42.0-52.0); HEMOGLOBIN 7.9 g/dl (13.5-17.5); LYMPH # 0.1 10^3/uL (1.5-5.0); MEAN CORPUSCULAR HEMOGLOBIN 34.1 pg (27.0-33.0); MEAN CORPUSCULAR HGB CONC 30.3 g/dl (32.0-36.5); MEAN CORPUSCULAR VOLUME 112.5 fl (80.0-96.0); MONO # 0.2 10^3/uL (0.0-0.8); MONO % 7.7 % (2.0-8.0); NEUTROPHILS # 2.6 10^3/uL (1.5-8.5); NEUTROPHILS % 85.4 % (36.0-66.0); PLATELET COUNT, AUTOMATED 217 10^3/uL (150-450); RED BLOOD COUNT 2.32 10^6/uL (4.30-6.10)
[2022-09-18 05:54] LABS: C REACTIVE PROTEIN QUANTITATIV 13.9 MG/DL (0.00-0.30); CALCIUM LEVEL 8.7 MG/DL (8.8-10.2); CREATININE FOR GFR 1.83 MG/DL (0.70-1.30); GLOMERULAR FILTRATION RATE 39.7 (>49); POTASSIUM SERUM 4.1 MEQ/L (3.5-5.1)
[2022-09-18] MEDS: LEVOTHYROXINE 50MCG TABLET (0.05MG) PEG SCH (06:27)
[2022-09-18] MEDS: LEVOTHYROXINE 100MCG TABLET (0.1MG) PEG SCH (06:27)
[2022-09-18] MEDS: HEPARIN SOD (PORCINE) 5000UNITS/ML 1ML VIAL/SYRINGE SC SCH ×3 (06:27→21:13)
[2022-09-18] MEDS: INSULIN LISPRO (NovoLOG) PER UNIT SC SCH ×4 (07:30→19:51)
[2022-09-18] MEDS: METOPROLOL TART 12.5 MG PER 1/2 TAB PEG SCH ×2 (09:17→20:07)
[2022-09-18] MEDS: BUMETANIDE 1 MG TAB PEG SCH (09:17)
[2022-09-18] MEDS: MYCOPHENOLATE 200 MG/ML PEG SCH ×4 (09:18→20:08)
[2022-09-18] MEDS: FAMOTIDINE 20 MG TAB PEG SCH (09:18)
[2022-09-18] MEDS: NYSTATIN 500,000 U/5 ML SUSP UDC PO SCH ×4 (09:18→20:08)
[2022-09-18] MEDS: PROGRAF 1 MG PO SCH ×2 (09:19→20:08)
[2022-09-18] MEDS: VANCOMYCIN HCL 750 MG, VIAL MATE ADAPTER 1 EACH in D5W 250 ML IV SCH (09:19)
[2022-09-18] MEDS: FERROUS SULFATE 325MG TAB PO SCH ×2 (12:26→20:07)
[2022-09-18] MEDS: cefTRIAXone SOD 2 GM in D5W MINI-BAG PLUS 50 ML IV SCH (16:33)
[2022-09-18] MEDS ORDERED: MIRALAX *UNIT DOSE* 17GM PACKET PO PRN (16:45)
[2022-09-18] MEDS ORDERED: SENNA 8.6 MG TAB (SENOKOT) PO PRN (16:45)
[2022-09-18] MEDS ORDERED: DOCUSATE SODIUM 100MG CAPSULE PO PRN (16:45)
[2022-09-18] MEDS ORDERED: cefTRIAXone SOD 2 GM in D5W MINI-BAG PLUS 50 ML IV ONE (16:50)
[2022-09-18] MEDS ORDERED: cefTRIAXone SOD 2 GM VIAL (J0696 PER 250MG) IM SCH (18:00)
[2022-09-18] MEDS: PRAVASTATIN 20 MG TAB PEG SCH (20:08)
[2022-09-19] VITALS (17 sets, daily range): BP systolic 114–142; BP diastolic 52–82; O2SAT 95–100
[2022-09-19] MEDS: LEVOTHYROXINE 100MCG TABLET (0.1MG) PEG SCH (05:47)
[2022-09-19] MEDS: LEVOTHYROXINE 50MCG TABLET (0.05MG) PEG SCH (05:47)
[2022-09-19] MEDS: HEPARIN SOD (PORCINE) 5000UNITS/ML 1ML VIAL/SYRINGE SC SCH ×3 (05:47→21:25)
[2022-09-19 06:10] LABS: BASO % 0.4 % (0.0-1.0); EOS # 0.1 10^3/uL (0.0-0.5); EOS % 2.5 % (0.0-3.0); HEMATOCRIT 21.6 % (42.0-52.0); LYMPH # 0.2 10^3/uL (1.5-5.0); LYMPH % 6.2 % (24.0-44.0); MEAN CORPUSCULAR HEMOGLOBIN 33.8 pg (27.0-33.0); MEAN CORPUSCULAR HGB CONC 32.4 g/dl (32.0-36.5); MEAN CORPUSCULAR VOLUME 104.3 fl (80.0-96.0); MONO # 0.2 10^3/uL (0.0-0.8); NEUTROPHILS % 82.3 % (36.0-66.0); PLATELET COUNT, AUTOMATED 219 10^3/uL (150-450); RED BLOOD COUNT 2.07 10^6/uL (4.30-6.10); WHITE BLOOD COUNT 2.4 10^3/uL (4.0-10.0)
[2022-09-19 06:40] LABS: CALCIUM LEVEL 8.8 MG/DL (8.8-10.2); CREATININE FOR GFR 1.85 MG/DL (0.70-1.30); GLOMERULAR FILTRATION RATE 39.3 (>49); POTASSIUM SERUM 5.1 MEQ/L (3.5-5.1)
[2022-09-19] MEDS ORDERED: ALBUTEROL 90 MCG/ACT 8GM HFA INHALER INH PRN (07:00)
[2022-09-19] MEDS ORDERED: ALBUTEROL SULFATE 2.5 MG/0.5 ML INH NEB SOLN INH PRN (07:01)
[2022-09-19] MEDS ORDERED: EPINEPHrine INJ 1 MG/ML 1ML AMP IM PRN (07:01)
[2022-09-19] MEDS ORDERED: diphenhydrAMINE 50MG/ML VIAL IV PRN (07:01)
[2022-09-19] MEDS ORDERED: methylPREDNISolone 125MG 2ML VIAL IV PRN (07:01)
[2022-09-19] MEDS: INSULIN LISPRO (NovoLOG) PER UNIT SC SCH (07:22)
[2022-09-19] MEDS: METOPROLOL TART 12.5 MG PER 1/2 TAB PEG SCH ×2 (08:39→21:23)
[2022-09-19] MEDS: BUMETANIDE 1 MG TAB PEG SCH (08:39)
[2022-09-19] MEDS: FAMOTIDINE 20 MG TAB PEG SCH (08:40)
[2022-09-19] MEDS: NYSTATIN 500,000 U/5 ML SUSP UDC PO SCH ×4 (08:41→21:24)
[2022-09-19] MEDS: MYCOPHENOLATE 200 MG/ML PEG SCH ×4 (08:43→21:25)
[2022-09-19] MEDS: FERROUS SULFATE 300MG/5ML UDC LIQUID GT SCH (08:43)
[2022-09-19] MEDS: PROGRAF 1 MG PO SCH ×2 (08:44→21:43)
[2022-09-19] MEDS ORDERED: predniSONE 20 MG TAB PO SCH (09:00)
[2022-09-19] MEDS ORDERED: LIDOCAINE 1% MDV 20ML VIAL As Ordered ONE (09:24)
[2022-09-19 11:26] LABS: HEMATOCRIT 25.4 % (42.0-52.0); HEMOGLOBIN 8.4 g/dl (13.5-17.5)
[2022-09-19] MEDS ORDERED: SODIUM CHLORIDE 0.9% INJ 10 ML SYR IV PRN (11:55)
[2022-09-19] MEDS: VANCOMYCIN HCL 1,000 MG, VIAL MATE ADAPTER 1 EACH in D5W 250 ML IV SCH (13:56)
[2022-09-19] MEDS ORDERED: BEBTELOVIMAB 175MG 2ML VIAL (EUA) IV ONE (16:30)
[2022-09-19] MEDS ORDERED: cefTRIAXone SOD 2 GM VIAL (J0696 PER 250MG) IV SCH (18:00)
[2022-09-19] MEDS: cefTRIAXone SOD 2 GM in D5W MINI-BAG PLUS 50 ML IV SCH (18:14)
[2022-09-19] MEDS: PRAVASTATIN 20 MG TAB PEG SCH (21:24)
[2022-09-19] MEDS: SODIUM CHLORIDE 0.9% INJ 10 ML SYR IV SCH (21:25)
[2022-09-20] VITALS (21 sets, daily range): BP systolic 116–142; BP diastolic 53–83; O2SAT 83–100
[2022-09-20] MEDS: LEVOTHYROXINE 50MCG TABLET (0.05MG) PEG SCH (06:21)
[2022-09-20] MEDS: HEPARIN SOD (PORCINE) 5000UNITS/ML 1ML VIAL/SYRINGE SC SCH ×3 (06:21→21:24)
[2022-09-20] MEDS: LEVOTHYROXINE 100MCG TABLET (0.1MG) PEG SCH (06:21)
[2022-09-20] MEDS: FERROUS SULFATE 300MG/5ML UDC LIQUID GT SCH (08:34)
[2022-09-20] MEDS: NYSTATIN 500,000 U/5 ML SUSP UDC PO SCH ×5 (08:34→21:27)
[2022-09-20] MEDS: FAMOTIDINE 20 MG TAB PEG SCH (08:34)
[2022-09-20] MEDS: BUMETANIDE 1 MG TAB PEG SCH (08:35)
[2022-09-20] MEDS: SODIUM CHLORIDE 0.9% INJ 10 ML SYR IV SCH ×2 (08:36→21:26)
[2022-09-20] MEDS: PROGRAF 1 MG PO SCH ×2 (08:37→21:28)
[2022-09-20] MEDS: MYCOPHENOLATE 200 MG/ML PEG SCH ×4 (08:38→21:27)
[2022-09-20] MEDS: METOPROLOL TART 12.5 MG PER 1/2 TAB PEG SCH ×2 (08:45→21:27)
[2022-09-20 12:08] LABS: BASO % 0.3 % (0.0-1.0); EOS # 0.1 10^3/uL (0.0-0.5); EOS % 2.2 % (0.0-3.0); HEMATOCRIT 24.2 % (42.0-52.0); LYMPH # 0.1 10^3/uL (1.5-5.0); LYMPH % 3.1 % (24.0-44.0); MEAN CORPUSCULAR HGB CONC 33.1 g/dl (32.0-36.5); MONO # 0.2 10^3/uL (0.0-0.8); MONO % 6.1 % (2.0-8.0); NEUTROPHILS # 3.1 10^3/uL (1.5-8.5); NEUTROPHILS % 86.4 % (36.0-66.0); PLATELET COUNT, AUTOMATED 260 10^3/uL (150-450); RED BLOOD COUNT 2.35 10^6/uL (4.30-6.10); WHITE BLOOD COUNT 3.6 10^3/uL (4.0-10.0)
[2022-09-20 13:42] LABS: CALCIUM LEVEL 9.2 MG/DL (8.3-10.6); CREATININE FOR GFR 1.83 MG/DL (0.70-1.30); GLOMERULAR FILTRATION RATE 39.7 (>49); POTASSIUM SERUM 4.7 MMOL/L (3.5-5.1)
[2022-09-20] MEDS: VANCOMYCIN HCL 1,000 MG, VIAL MATE ADAPTER 1 EACH in D5W 250 ML IV SCH (14:35)
[2022-09-20] MEDS: cefTRIAXone SOD 2 GM in D5W MINI-BAG PLUS 50 ML IV SCH (18:15)
[2022-09-20] MEDS: PRAVASTATIN 20 MG TAB PEG SCH (21:27)
[2022-09-21] VITALS (14 sets, daily range): BP systolic 111–138; BP diastolic 51–65; O2SAT 92–99
[2022-09-21] MEDS: HEPARIN SOD (PORCINE) 5000UNITS/ML 1ML VIAL/SYRINGE SC SCH ×3 (06:02→22:00)
[2022-09-21] MEDS: LEVOTHYROXINE 100MCG TABLET (0.1MG) PEG SCH (06:03)
[2022-09-21] MEDS: LEVOTHYROXINE 50MCG TABLET (0.05MG) PEG SCH (06:03)
[2022-09-21 07:20] LABS: BASO % 0.8 % (0.0-1.0); EOS % 1.6 % (0.0-3.0); HEMATOCRIT 23.9 % (42.0-52.0); HEMOGLOBIN 7.7 g/dl (13.5-17.5); LYMPH # 0.2 10^3/uL (1.5-5.0); LYMPH % 7.2 % (24.0-44.0); MEAN CORPUSCULAR HEMOGLOBIN 33.2 pg (27.0-33.0); MEAN CORPUSCULAR HGB CONC 32.2 g/dl (32.0-36.5); MONO # 0.2 10^3/uL (0.0-0.8); NEUTROPHILS % 80.4 % (36.0-66.0); PLATELET COUNT, AUTOMATED 260 10^3/uL (150-450); RED BLOOD COUNT 2.32 10^6/uL (4.30-6.10); WHITE BLOOD COUNT 2.5 10^3/uL (4.0-10.0)
[2022-09-21 07:41] LABS: CREATININE FOR GFR 1.67 MG/DL (0.70-1.30); GLOMERULAR FILTRATION RATE 44.2 (>49); MAGNESIUM LEVEL 1.7 MG/DL (1.8-2.4)
[2022-09-21] MEDS ORDERED: MAG SULF 1GM/100ML (MAG RUN) 1 GM in IV 1 EA IV ONE (09:00)
[2022-09-21] MEDS: NYSTATIN 500,000 U/5 ML SUSP UDC PO SCH ×4 (09:45→21:14)
[2022-09-21] MEDS: BUMETANIDE 1 MG TAB PEG SCH (09:45)
[2022-09-21] MEDS: FERROUS SULFATE 300MG/5ML UDC LIQUID GT SCH (09:45)
[2022-09-21] MEDS: FAMOTIDINE 20 MG TAB PEG SCH (09:47)
[2022-09-21] MEDS: MYCOPHENOLATE 200 MG/ML PEG SCH ×4 (09:47→21:13)
[2022-09-21] MEDS: METOPROLOL TART 12.5 MG PER 1/2 TAB PEG SCH ×2 (09:48→21:15)
[2022-09-21] MEDS: PROGRAF 1 MG PO SCH ×2 (09:48→21:14)
[2022-09-21] MEDS: SODIUM CHLORIDE 0.9% INJ 10 ML SYR IV SCH ×2 (10:00→22:00)
[2022-09-21] MEDS: VANCOMYCIN HCL 1,000 MG, VIAL MATE ADAPTER 1 EACH in D5W 250 ML IV SCH (13:06)
[2022-09-21] MEDS ORDERED: VANCOMYCIN HCL 750 MG, VIAL MATE ADAPTER 1 EACH in D5W 250 ML IV SCH (14:00)
[2022-09-21 16:09] LABS: CHLAMYDIA PNEUMONIAE IgM <1:10 (Neg:<1:10)
[2022-09-21] MEDS: cefTRIAXone SOD 2 GM in D5W MINI-BAG PLUS 50 ML IV SCH (21:12)
[2022-09-21] MEDS: PRAVASTATIN 20 MG TAB PEG SCH (21:14)
[2022-09-22] VITALS (8 sets, daily range): BP systolic 110–150; BP diastolic 51–68; O2SAT 96–100
[2022-09-22] MEDS: LEVOTHYROXINE 100MCG TABLET (0.1MG) PEG SCH (06:23)
[2022-09-22] MEDS: LEVOTHYROXINE 50MCG TABLET (0.05MG) PEG SCH (06:24)
[2022-09-22] MEDS: HEPARIN SOD (PORCINE) 5000UNITS/ML 1ML VIAL/SYRINGE SC SCH ×3 (06:24→21:17)
[2022-09-22 07:24] LABS: BASO % 0.4 % (0.0-1.0); EOS # 0.1 10^3/uL (0.0-0.5); EOS % 2.4 % (0.0-3.0); HEMATOCRIT 23.1 % (42.0-52.0); HEMOGLOBIN 7.5 g/dl (13.5-17.5); LYMPH # 0.2 10^3/uL (1.5-5.0); LYMPH % 8.6 % (24.0-44.0); MEAN CORPUSCULAR HEMOGLOBIN 33.5 pg (27.0-33.0); MEAN CORPUSCULAR HGB CONC 32.5 g/dl (32.0-36.5); MEAN CORPUSCULAR VOLUME 103.1 fl (80.0-96.0); MONO # 0.2 10^3/uL (0.0-0.8); MONO % 7.3 % (2.0-8.0); NEUTROPHILS # 1.9 10^3/uL (1.5-8.5); PLATELET COUNT, AUTOMATED 255 10^3/uL (150-450); RED BLOOD COUNT 2.24 10^6/uL (4.30-6.10); WHITE BLOOD COUNT 2.5 10^3/uL (4.0-10.0)
[2022-09-22 08:11] LABS: CALCIUM LEVEL 9.4 MG/DL (8.3-10.6); CREATININE FOR GFR 1.61 MG/DL (0.70-1.30); GLOMERULAR FILTRATION RATE 46.1 (>49); MAGNESIUM LEVEL 1.9 MG/DL (1.8-2.4); POTASSIUM SERUM 5.4 MMOL/L (3.5-5.1)
[2022-09-22] MEDS: FERROUS SULFATE 300MG/5ML UDC LIQUID GT SCH (09:39)
[2022-09-22] MEDS: NYSTATIN 500,000 U/5 ML SUSP UDC PO SCH ×5 (09:39→21:17)
[2022-09-22] MEDS: METOPROLOL TART 12.5 MG PER 1/2 TAB PEG SCH ×2 (09:40→21:20)
[2022-09-22] MEDS: SODIUM CHLORIDE 0.9% INJ 10 ML SYR IV SCH ×2 (09:40→21:17)
[2022-09-22] MEDS: BUMETANIDE 1 MG TAB PEG SCH (09:40)
[2022-09-22] MEDS: FAMOTIDINE 20 MG TAB PEG SCH (09:40)
[2022-09-22] MEDS: PROGRAF 1 MG PO SCH ×2 (09:41→21:28)
[2022-09-22] MEDS: MYCOPHENOLATE 200 MG/ML PEG SCH ×4 (09:42→21:15)
[2022-09-22] MEDS: PATIROMER SORBITEX CALCIUM 8.4 GM POWDER PACKET (VELTASSA) PO SCH (13:15)
[2022-09-22] MEDS: cefTRIAXone SOD 2 GM in D5W MINI-BAG PLUS 50 ML IV SCH (18:42)
[2022-09-22] MEDS: PRAVASTATIN 20 MG TAB PEG SCH (21:18)
[2022-09-23] VITALS (22 sets, daily range): BP systolic 114–139; BP diastolic 50–59; O2SAT 95–100
[2022-09-23 05:52] LABS: BASO % 0.5 % (0.0-1.0); EOS % 1.9 % (0.0-3.0); HEMATOCRIT 22.1 % (42.0-52.0); HEMOGLOBIN 7.3 g/dl (13.5-17.5); LYMPH # 0.2 10^3/uL (1.5-5.0); LYMPH % 10.4 % (24.0-44.0); MEAN CORPUSCULAR HEMOGLOBIN 33.8 pg (27.0-33.0); MEAN CORPUSCULAR VOLUME 102.3 fl (80.0-96.0); MONO # 0.2 10^3/uL (0.0-0.8); MONO % 8.5 % (2.0-8.0); NEUTROPHILS # 1.6 10^3/uL (1.5-8.5); NEUTROPHILS % 74.5 % (36.0-66.0); PLATELET COUNT, AUTOMATED 250 10^3/uL (150-450); RED BLOOD COUNT 2.16 10^6/uL (4.30-6.10); WHITE BLOOD COUNT 2.1 10^3/uL (4.0-10.0)
[2022-09-23] MEDS: LEVOTHYROXINE 100MCG TABLET (0.1MG) PEG SCH (06:08)
[2022-09-23] MEDS: LEVOTHYROXINE 50MCG TABLET (0.05MG) PEG SCH (06:08)
[2022-09-23] MEDS: HEPARIN SOD (PORCINE) 5000UNITS/ML 1ML VIAL/SYRINGE SC SCH ×3 (06:08→21:53)
[2022-09-23 06:19] LABS: CREATININE FOR GFR 1.69 MG/DL (0.70-1.30); GLOMERULAR FILTRATION RATE 43.6 (>49); MAGNESIUM LEVEL 1.9 MG/DL (1.8-2.4); POTASSIUM SERUM 5.5 MMOL/L (3.5-5.1); VANCOMYCIN RANDOM 20.2 UG/ML
[2022-09-23] MEDS: BUMETANIDE 1 MG TAB PEG SCH (09:57)
[2022-09-23] MEDS: FERROUS SULFATE 300MG/5ML UDC LIQUID GT SCH (09:57)
[2022-09-23] MEDS: PROGRAF 1 MG PO SCH ×2 (09:57→21:00)
[2022-09-23] MEDS: SODIUM CHLORIDE 0.9% INJ 10 ML SYR IV SCH ×2 (09:58→21:53)
[2022-09-23] MEDS: MYCOPHENOLATE 200 MG/ML PEG SCH ×4 (09:58→21:54)
[2022-09-23] MEDS: METOPROLOL TART 12.5 MG PER 1/2 TAB PEG SCH ×2 (10:01→20:44)
[2022-09-23] MEDS: FAMOTIDINE 20 MG TAB PEG SCH (10:02)
[2022-09-23] MEDS: NYSTATIN 500,000 U/5 ML SUSP UDC PO SCH ×4 (10:02→21:54)
[2022-09-23] MEDS: PATIROMER SORBITEX CALCIUM 8.4 GM POWDER PACKET (VELTASSA) PO SCH (12:39)
[2022-09-23] MEDS: cefTRIAXone SOD 2 GM in D5W MINI-BAG PLUS 50 ML IV SCH (18:05)
[2022-09-23] MEDS: PRAVASTATIN 20 MG TAB PEG SCH (21:54)
[2022-09-24] VITALS (14 sets, daily range): BP systolic 117–148; BP diastolic 53–65; O2SAT 94–100
[2022-09-24] MEDS: HEPARIN SOD (PORCINE) 5000UNITS/ML 1ML VIAL/SYRINGE SC SCH ×2 (05:46→13:36)
[2022-09-24] MEDS: LEVOTHYROXINE 100MCG TABLET (0.1MG) PEG SCH (05:46)
[2022-09-24] MEDS: LEVOTHYROXINE 50MCG TABLET (0.05MG) PEG SCH (05:46)
[2022-09-24 07:31] LABS: BASO % 0.9 % (0.0-1.0); EOS # 0.1 10^3/uL (0.0-0.5); EOS % 2.7 % (0.0-3.0); HEMATOCRIT 27.1 % (42.0-52.0); HEMOGLOBIN 9.2 g/dl (13.5-17.5); LYMPH # 0.2 10^3/uL (1.5-5.0); LYMPH % 9.3 % (24.0-44.0); MEAN CORPUSCULAR HEMOGLOBIN 33.1 pg (27.0-33.0); MEAN CORPUSCULAR HGB CONC 33.9 g/dl (32.0-36.5); MEAN CORPUSCULAR VOLUME 97.5 fl (80.0-96.0); MONO # 0.2 10^3/uL (0.0-0.8); MONO % 7.1 % (2.0-8.0); NEUTROPHILS # 1.8 10^3/uL (1.5-8.5); NEUTROPHILS % 77.8 % (36.0-66.0); PLATELET COUNT, AUTOMATED 240 10^3/uL (150-450); RED BLOOD COUNT 2.78 10^6/uL (4.30-6.10); WHITE BLOOD COUNT 2.3 10^3/uL (4.0-10.0)
[2022-09-24] MEDS ORDERED: CEFTINJ2 IV (07:56)
[2022-09-24] MEDS ORDERED: NYST50SS PO (07:56)
[2022-09-24] MEDS ORDERED: IPRA0.00 NEB (07:56)
[2022-09-24] MEDS ORDERED: VANC750I IV (07:56)
[2022-09-24] MEDS ORDERED: NYST10006 TOP (07:56)
[2022-09-24] MEDS ORDERED: FERR5MLUD GT (07:56)
[2022-09-24 08:01] LABS: CALCIUM LEVEL 9.2 MG/DL (8.3-10.6); CREATININE FOR GFR 1.74 MG/DL (0.70-1.30); GLOMERULAR FILTRATION RATE 42.1 (>49); POTASSIUM SERUM 5.4 MMOL/L (3.5-5.1); VANCOMYCIN RANDOM 17.3 UG/ML
[2022-09-24] MEDS: MYCOPHENOLATE 200 MG/ML PEG SCH ×2 (09:25→13:35)
[2022-09-24] MEDS: BUMETANIDE 1 MG TAB PEG SCH (09:25)
[2022-09-24] MEDS: FAMOTIDINE 20 MG TAB PEG SCH (09:26)
[2022-09-24] MEDS: METOPROLOL TART 12.5 MG PER 1/2 TAB PEG SCH (09:26)
[2022-09-24] MEDS: NYSTATIN 500,000 U/5 ML SUSP UDC PO SCH ×2 (09:26→13:35)
[2022-09-24] MEDS: SODIUM CHLORIDE 0.9% INJ 10 ML SYR IV SCH (09:26)
[2022-09-24] MEDS: FERROUS SULFATE 300MG/5ML UDC LIQUID GT SCH (09:26)
[2022-09-24] MEDS: PROGRAF 1 MG PO SCH (09:27)
[2022-09-24] MEDS ORDERED: SOD POLYSTYRENE SULFONATE SUSP 15GM 60ML UD PO ONE (11:00)
[2022-09-25] MEDS ORDERED: BUMETANIDE 1 MG TAB PEG SCH (09:00)
== END 2022-09-24 14:08 | disposition short-term general hospital (02) | DRG 288 ==
LOC: M ED 22:12 → EDBD 22:12 → M ED INP 09-15 02:40 → ENRESERV 09-15 13:36 → M PCU 09-15 15:30
PROVIDERS: ADMIT Family Medicine; ATTEND Internal Medicine
PROC: 05HC33Z Insertion of Infusion Device into Left Basilic Vein, Percutaneous Approach (ICD-10-PCS; principal; 2022-09-19 09:25)
PROC: 30233N1 Transfusion of Nonautologous Red Blood Cells into Peripheral Vein, Percutaneous Approach (ICD-10-PCS; 2022-09-23)
DX: I33.0 Acute and subacute infective endocarditis (principal); J15.9 Unspecified bacterial pneumonia; I50.33 Acute on chronic diastolic (congestive) heart failure; U07.1 COVID-19; J96.01 Acute respiratory failure with hypoxia; Z94.0 Kidney transplant status; E87.1 Hypo-osmolality and hyponatremia; N17.9 Acute kidney failure, unspecified; I13.0 Hypertensive heart and chronic kidney disease with heart failure and stage 1 through stage 4 chronic kidney disease, or unspecified chronic kidney disease; B37.0 Candidal stomatitis; J84.9 Interstitial pulmonary disease, unspecified; I97.648 Postprocedural seroma of a circulatory system organ or structure following other circulatory system procedure; D61.818 Other pancytopenia; D84.822 Immunodeficiency due to external causes; K21.9 Gastro-esophageal reflux disease without esophagitis; G47.00 Insomnia, unspecified; I35.0 Nonrheumatic aortic (valve) stenosis; N18.30 Chronic kidney disease, stage 3 unspecified; E87.5 Hyperkalemia; D63.1 Anemia in chronic kidney disease; E11.22 Type 2 diabetes mellitus with diabetic chronic kidney disease; E89.0 Postprocedural hypothyroidism; L89.152 Pressure ulcer of sacral region, stage 2; R13.10 Dysphagia, unspecified; I77.0 Arteriovenous fistula, acquired; B97.89 Other viral agents as the cause of diseases classified elsewhere; E78.5 Hyperlipidemia, unspecified; Z96.643 Presence of artificial hip joint, bilateral; Z95.820 Peripheral vascular angioplasty status with implants and grafts; Z98.41 Cataract extraction status, right eye; Z98.42 Cataract extraction status, left eye; Z85.828 Personal history of other malignant neoplasm of skin; Z79.890 Hormone replacement therapy; Z79.899 Other long term (current) drug therapy; Z88.8 Allergy status to other drugs, medicaments and biological substances; Z92.3 Personal history of irradiation; Z85.850 Personal history of malignant neoplasm of thyroid; Z87.891 Personal history of nicotine dependence

== ENCOUNTER → 2022-10-13 | Outpatient (REF) | payer MEDICARE, OTHER ==
[~2022-10-13] MED LIST changes: +BUME1TAB3 GT; +CALC1SOL GT; +CEFTINJ2 IV; +FAMO20TA PO; +FERR5MLUD GT; +IPRA0.00 NEB; +LEVO2TA GT; +METO25TA4 GT; +MYCO1SUS GT; +NEPR1LIQ2 GT; +NYST10006 TOP; +NYST50SS PO; +PERC7.5T11 GT; +PRAV20TA2 GT; +SYNT50TA GT; +TACR1GRA GT; +VANC750I IV; +VITMTA GT
[2022-10-13 13:26] LABS: BASO % 0.3 % (0.0-1.0); EOS % 0.5 % (0.0-3.0); HEMATOCRIT 26.2 % (42.0-52.0); HEMOGLOBIN 8.7 g/dl (13.5-17.5); LYMPH # 0.2 10^3/uL (1.5-5.0); LYMPH % 2.8 % (24.0-44.0); MEAN CORPUSCULAR HEMOGLOBIN 34.1 pg (27.0-33.0); MEAN CORPUSCULAR HGB CONC 33.2 g/dl (32.0-36.5); MEAN CORPUSCULAR VOLUME 102.7 fl (80.0-96.0); MONO # 0.2 10^3/uL (0.0-0.8); MONO % 3.3 % (2.0-8.0); NEUTROPHILS # 5.4 10^3/uL (1.5-8.5); NEUTROPHILS % 92.6 % (36.0-66.0); PLATELET COUNT, AUTOMATED 136 10^3/uL (150-450); RED BLOOD COUNT 2.55 10^6/uL (4.30-6.10); WHITE BLOOD COUNT 5.8 10^3/uL (4.0-10.0)
[2022-10-13 13:53] LABS: C REACTIVE PROTEIN QUANTITATIV 0.6 MG/DL (<1.0)
[2022-10-13 13:54] LABS: VANCOMYCIN LEVEL TROUGH 16.2 UG/ML (10.0-20.0)
[2022-10-13 13:56] LABS: CALCIUM LEVEL 9.6 MG/DL (8.3-10.6); CREATININE FOR GFR 1.32 MG/DL (0.70-1.30); GLOMERULAR FILTRATION RATE 57.9 (>49); POTASSIUM SERUM 4.9 MMOL/L (3.5-5.1)
[2022-10-13 14:07] LABS: ERYTHROCYTE SEDIMENTATION RATE 27 mm/hr (0-20)
== END ==
LOC: M LAB REF 13:06 → M SHH 13:06
PROVIDERS: ATTEND Internal Medicine Infectious Disease
DX: I05.9 Rheumatic mitral valve disease, unspecified (principal)

== ENCOUNTER → 2022-10-16 | Outpatient (REF) | payer MEDICARE, OTHER ==
[2022-10-16 15:42] LABS: BASO % 0.2 % (0.0-1.0); EOS % 0.3 % (0.0-3.0); HEMATOCRIT 28.7 % (42.0-52.0); HEMOGLOBIN 9.1 g/dl (13.5-17.5); LYMPH # 0.1 10^3/uL (1.5-5.0); LYMPH % 2.3 % (24.0-44.0); MEAN CORPUSCULAR HEMOGLOBIN 33.5 pg (27.0-33.0); MEAN CORPUSCULAR HGB CONC 31.7 g/dl (32.0-36.5); MEAN CORPUSCULAR VOLUME 105.5 fl (80.0-96.0); MONO # 0.2 10^3/uL (0.0-0.8); MONO % 3.2 % (2.0-8.0); NEUTROPHILS # 5.8 10^3/uL (1.5-8.5); NEUTROPHILS % 93.5 % (36.0-66.0); PLATELET COUNT, AUTOMATED 145 10^3/uL (150-450); RED BLOOD COUNT 2.72 10^6/uL (4.30-6.10); WHITE BLOOD COUNT 6.2 10^3/uL (4.0-10.0)
[2022-10-16 16:06] LABS: CALCIUM LEVEL 9.3 MG/DL (8.3-10.6); CREATININE FOR GFR 1.3 MG/DL (0.70-1.30); POTASSIUM SERUM 4.9 MMOL/L (3.5-5.1); VANCOMYCIN LEVEL TROUGH 14.8 UG/ML (10.0-20.0)
[2022-10-16 16:07] LABS: C REACTIVE PROTEIN QUANTITATIV 0.4 MG/DL (<1.0)
[2022-10-16 17:42] LABS: ERYTHROCYTE SEDIMENTATION RATE 28 mm/hr (0-20)
== END ==
LOC: M SHH 15:05
PROVIDERS: ATTEND Internal Medicine Infectious Disease
DX: I05.9 Rheumatic mitral valve disease, unspecified (principal)

== ENCOUNTER → 2022-10-23 | Outpatient (REF) | payer MEDICARE, OTHER ==
[2022-10-23 17:49] LABS: BASO % 0.2 % (0.0-1.0); EOS # 0.1 10^3/uL (0.0-0.5); EOS % 1.5 % (0.0-3.0); HEMATOCRIT 27.6 % (42.0-52.0); HEMOGLOBIN 8.9 g/dl (13.5-17.5); LYMPH # 0.2 10^3/uL (1.5-5.0); MEAN CORPUSCULAR HEMOGLOBIN 33.8 pg (27.0-33.0); MEAN CORPUSCULAR HGB CONC 32.2 g/dl (32.0-36.5); MEAN CORPUSCULAR VOLUME 104.9 fl (80.0-96.0); MONO # 0.1 10^3/uL (0.0-0.8); MONO % 3.5 % (2.0-8.0); NEUTROPHILS # 3.7 10^3/uL (1.5-8.5); NEUTROPHILS % 90.3 % (36.0-66.0); RED BLOOD COUNT 2.63 10^6/uL (4.30-6.10)
[2022-10-23 18:06] LABS: VANCOMYCIN LEVEL TROUGH 21.8 UG/ML (10.0-20.0)
[2022-10-23 18:07] LABS: C REACTIVE PROTEIN QUANTITATIV < 0.40 MG/DL (<1.0)
[2022-10-23 18:08] LABS: BLOOD UREA NITROGEN 92 MG/DL (9-23); CALCIUM LEVEL 9.2 MG/DL (8.3-10.6); CARBON DIOXIDE LEVEL 27 MMOL/L (20-31); CHLORIDE LEVEL 100 MMOL/L (98-107); CREATININE FOR GFR 1.24 MG/DL (0.70-1.30); GLOMERULAR FILTRATION RATE > 60.0 (>49); GLUCOSE, FASTING 91 MG/DL (74-106); POTASSIUM SERUM 5.1 MMOL/L (3.5-5.1); SODIUM LEVEL 137 MMOL/L (136-145)
[2022-10-23 18:19] LABS: PLATELET COUNT, AUTOMATED 88 10^3/uL (150-450)
[2022-10-23 19:03] LABS: ERYTHROCYTE SEDIMENTATION RATE 2 mm/hr (0-20)
== END ==
LOC: M SHH 16:42
PROVIDERS: ATTEND Internal Medicine Infectious Disease
DX: I05.9 Rheumatic mitral valve disease, unspecified (principal)

== ENCOUNTER → 2022-11-08 | Outpatient (REF) | payer MEDICARE, OTHER ==
[~2022-11-08] MED LIST changes: +NYST-38 PO; -NYST50SS PO
[2022-11-08 19:26] LABS: FREE T4 1.53 NG/DL (0.89-1.76); THYROID STIMULATING HORMONE 29.189 uIU/ML (0.55-4.78)
== END ==
LOC: M LAB REF 16:46
PROVIDERS: ATTEND Internal Medicine Nephrology
DX: E03.9 Hypothyroidism, unspecified (principal)

== ENCOUNTER → 2022-11-28 | Outpatient (CLI) | payer MEDICARE, OTHER ==
[2022-11-28 12:48] LABS: APPEARANCE, URINE MANUAL CLEAR (CLEAR); BILIRUBIN, URINE MANUAL NEGATIVE (NEGATIVE); BLOOD URINE MANUAL NEGATIVE (NEGATIVE); COLOR, URINE MANUAL YELLOW (YELLOW); GLUCOSE, URINE (UA) MANUAL NEGATIVE (NEGATIVE); KETONE, URINE MANUAL NEGATIVE (NEGATIVE); LEUKOCYTE ESTERASE, URINE MAN NEGATIVE (NEGATIVE); NITRITE, URINE MANUAL NEGATIVE (NEGATIVE); PROTEIN, URINE MANUAL NEGATIVE (NEGATIVE); SPECIFIC GRAVITY,URINE MANUAL 1.015 (1.002-1.035); UROBILINOGEN, URINE MANUAL NORMAL (NORMAL)
[2022-11-28 12:52] LABS: BASO % 0.2 % (0.0-1.0); EOS % 0.2 % (0.0-3.0); HEMATOCRIT 28.6 % (42.0-52.0); HEMOGLOBIN 9.6 g/dl (13.5-17.5); LYMPH # 0.2 10^3/uL (1.5-5.0); LYMPH % 2.6 % (24.0-44.0); MEAN CORPUSCULAR HEMOGLOBIN 34.2 pg (27.0-33.0); MEAN CORPUSCULAR HGB CONC 33.6 g/dl (32.0-36.5); MEAN CORPUSCULAR VOLUME 101.8 fl (80.0-96.0); MONO # 0.2 10^3/uL (0.0-0.8); MONO % 3.4 % (2.0-8.0); NEUTROPHILS # 6.1 10^3/uL (1.5-8.5); NEUTROPHILS % 93.1 % (36.0-66.0); PLATELET COUNT, AUTOMATED 158 10^3/uL (150-450); RED BLOOD COUNT 2.81 10^6/uL (4.30-6.10); WHITE BLOOD COUNT 6.5 10^3/uL (4.0-10.0)
[2022-11-28 13:20] LABS: MAGNESIUM LEVEL 2.1 MG/DL (1.8-2.4)
[2022-11-28 13:21] LABS: CREATININE,RANDOM URINE 47.1 MG/DL
[2022-11-28 13:21] LABS: ALBUMIN 4.2 G/DL (3.2-5.2); BILIRUBIN,DIRECT 0.1 MG/DL (<0.4); BILIRUBIN,TOTAL 0.4 MG/DL (0.3-1.2); CREATININE FOR GFR 1.77 MG/DL (0.70-1.30); GLOMERULAR FILTRATION RATE 41.3 (>49); PHOSPHORUS LEVEL 4.7 MG/DL (2.4-5.1); POTASSIUM SERUM 5.1 MMOL/L (3.5-5.1); TOTAL PROTEIN 6.5 G/DL (5.7-8.2)
[2022-11-28 13:26] LABS: TOTAL PROTEIN,RANDOM URINE < 6.0 MG/DL (0.0-14.0)
== END ==
LOC: M LAB 11:32
PROVIDERS: ATTEND Nurse Practitioner Family
DX: N39.0 Urinary tract infection, site not specified (principal); D63.1 Anemia in chronic kidney disease; Z51.81 Encounter for therapeutic drug level monitoring; E78.5 Hyperlipidemia, unspecified; Z94.0 Kidney transplant status; R60.9 Edema, unspecified

== ENCOUNTER → 2023-01-31 | Outpatient (CLI) | payer MEDICARE, OTHER ==
[2023-01-31 11:08] LABS: BASO % 0.4 % (0.0-1.0); EOS # 0.1 10^3/uL (0.0-0.5); HEMATOCRIT 28.8 % (42.0-52.0); HEMOGLOBIN 9.3 g/dl (13.5-17.5); LYMPH # 0.2 10^3/uL (1.5-5.0); LYMPH % 3.9 % (24.0-44.0); MEAN CORPUSCULAR HEMOGLOBIN 34.2 pg (27.0-33.0); MEAN CORPUSCULAR HGB CONC 32.3 g/dl (32.0-36.5); MEAN CORPUSCULAR VOLUME 105.9 fl (80.0-96.0); MONO # 0.3 10^3/uL (0.0-0.8); MONO % 5.1 % (2.0-8.0); NEUTROPHILS # 4.3 10^3/uL (1.5-8.5); NEUTROPHILS % 87.6 % (36.0-66.0); PLATELET COUNT, AUTOMATED 154 10^3/uL (150-450); RED BLOOD COUNT 2.72 10^6/uL (4.30-6.10); WHITE BLOOD COUNT 4.9 10^3/uL (4.0-10.0)
[2023-01-31 11:47] LABS: ALBUMIN 3.6 G/DL (3.2-5.2); BILIRUBIN,DIRECT 0.2 MG/DL (<0.4); BILIRUBIN,TOTAL 0.6 MG/DL (0.3-1.2); CALCIUM LEVEL 9.7 MG/DL (8.3-10.6); CREATININE FOR GFR 1.35 MG/DL (0.70-1.30); GLOMERULAR FILTRATION RATE 56.5 (>49); MAGNESIUM LEVEL 2.3 MG/DL (1.8-2.4); PHOSPHORUS LEVEL 5.1 MG/DL (2.4-5.1); POTASSIUM SERUM 5.3 MMOL/L (3.5-5.1); TOTAL PROTEIN 6.3 G/DL (5.7-8.2)
[2023-02-02 10:08] LABS: CMV QUANT DNA PCR (PLASMA) Negative (Negative)
== END ==
LOC: M LAB 09:51
PROVIDERS: ATTEND Nurse Practitioner Family
DX: N39.0 Urinary tract infection, site not specified (principal); D63.1 Anemia in chronic kidney disease; Z51.81 Encounter for therapeutic drug level monitoring; E78.5 Hyperlipidemia, unspecified; Z94.0 Kidney transplant status; R60.9 Edema, unspecified

== ENCOUNTER → 2023-02-02 | Outpatient (CLI) | payer MEDICARE, OTHER ==
[2023-02-02 12:03] LABS: APPEARANCE, URINE HAZY (CLEAR); BACTERIA, URINE AUTO NEGATIVE (NEGATIVE); BILIRUBIN, URINE AUTO NEGATIVE (NEGATIVE); BLOOD, URINE BLOOD NEGATIVE (NEGATIVE); COLOR, URINE YELLOW (YELLOW); GLUCOSE, URINE (UA) AUTO NEGATIVE (NEGATIVE); KETONE, URINE AUTO NEGATIVE (NEGATIVE); LEUKOCYTE ESTERASE, URINE AUTO NEGATIVE (NEGATIVE); NITRITE, URINE AUTO NEGATIVE (NEGATIVE); PROTEIN, URINE AUTO NEGATIVE (NEGATIVE); RBC, URINE AUTO 0 /HPF (0-3); SPECIFIC GRAVITY URINE AUTO 1.012 (1.002-1.035); SQUAMOUS EPITHELIAL CELL UR AU 0 /HPF (0-6); UROBILINOGEN, URINE AUTO 0.2 mg/dL (0.0-2.0); WBC, URINE AUTO 0 /HPF (0-3)
[2023-02-02 12:28] LABS: TOTAL PROTEIN,RANDOM URINE 9.4 MG/DL (0.0-14.0)
[2023-02-02 12:33] LABS: CREATININE,RANDOM URINE 42.6 MG/DL
== END ==
LOC: M LAB 10:30
DX: N39.0 Urinary tract infection, site not specified (principal); Z51.81 Encounter for therapeutic drug level monitoring; D63.1 Anemia in chronic kidney disease; E78.6 Lipoprotein deficiency; Z94.0 Kidney transplant status; R80.9 Proteinuria, unspecified; N18.9 Chronic kidney disease, unspecified

== ENCOUNTER → 2023-03-09 | Outpatient (CLI) | payer MEDICARE, OTHER ==
[~2023-03-09] MED LIST changes: -LOSA100T45 PO; +LOSA100T46 PO
[2023-03-09 11:50] LABS: EOS % 0.8 % (0.0-3.0); HEMATOCRIT 25.3 % (42.0-52.0); HEMOGLOBIN 8.4 g/dl (13.5-17.5); LYMPH # 0.2 10^3/uL (1.5-5.0); LYMPH % 5.9 % (24.0-44.0); MEAN CORPUSCULAR HEMOGLOBIN 34.7 pg (27.0-33.0); MEAN CORPUSCULAR HGB CONC 33.2 g/dl (32.0-36.5); MEAN CORPUSCULAR VOLUME 104.5 fl (80.0-96.0); MONO # 0.2 10^3/uL (0.0-0.8); MONO % 3.9 % (2.0-8.0); NEUTROPHILS # 3.4 10^3/uL (1.5-8.5); NEUTROPHILS % 88.6 % (36.0-66.0); PLATELET COUNT, AUTOMATED 129 10^3/uL (150-450); RED BLOOD COUNT 2.42 10^6/uL (4.30-6.10); WHITE BLOOD COUNT 3.9 10^3/uL (4.0-10.0)
[2023-03-09 12:21] LABS: LDH LACTATE DEHYDROGENASE 306 U/L (120-246)
[2023-03-09 12:22] LABS: ALBUMIN 3.5 G/DL (3.2-5.2); ALKALINE PHOSPHATASE 65 U/L (46-116); ALT/SGPT < 9 U/L (7.0-40); AST/SGOT 49 U/L (<34); BILIRUBIN,DIRECT < 0.1 MG/DL (<0.4); BILIRUBIN,TOTAL 0.3 MG/DL (0.3-1.2); BLOOD UREA NITROGEN 139 MG/DL (9-23); CALCIUM LEVEL 9.5 MG/DL (8.3-10.6); CARBON DIOXIDE LEVEL 24 MMOL/L (20-31); CHLORIDE LEVEL 100 MMOL/L (98-107); CREATININE FOR GFR 2.91 MG/DL (0.70-1.30); GLOMERULAR FILTRATION RATE 23.2 (>49); GLUCOSE, FASTING 105 MG/DL (74-106); MAGNESIUM LEVEL 2.3 MG/DL (1.8-2.4); PHOSPHORUS LEVEL 5.7 MG/DL (2.4-5.1); SODIUM LEVEL 136 MMOL/L (136-145); TOTAL PROTEIN 6.2 G/DL (5.7-8.2)
[2023-03-12 11:07] LABS: CMV QUANT DNA PCR (PLASMA) Negative (Negative)
== END ==
LOC: M LAB 10:53
PROVIDERS: ATTEND Nurse Practitioner Family
DX: Z51.81 Encounter for therapeutic drug level monitoring (principal); Z79.899 Other long term (current) drug therapy; Z94.0 Kidney transplant status; N18.9 Chronic kidney disease, unspecified; D63.1 Anemia in chronic kidney disease; E78.5 Hyperlipidemia, unspecified; R80.9 Proteinuria, unspecified

== ENCOUNTER → 2023-04-04 | Outpatient (REF) | payer MEDICARE, OTHER ==
[2023-04-04 18:44] LABS: FREE T4 1.39 NG/DL (0.89-1.76)
[2023-04-04 18:45] LABS: THYROID STIMULATING HORMONE 8.471 uIU/ML (0.55-4.78)
== END ==
LOC: M LAB REF 16:55
PROVIDERS: ATTEND Internal Medicine Nephrology
DX: E03.9 Hypothyroidism, unspecified (principal)

== ENCOUNTER → 2023-05-22 | Outpatient (CLI) | payer MEDICARE, OTHER | LOC: M LAB 13:15 | PROVIDERS: ATTEND Nurse Practitioner Family | DX: N39.0 Urinary tract infection, site not specified (principal) ==

== ENCOUNTER → 2023-05-22 | Outpatient (CLI) | payer MEDICARE | LOC: M RAD 13:13 | PROVIDERS: ATTEND Student in an Organized Health Care Education/Training Program | DX: M79.89 Other specified soft tissue disorders (principal) ==

== ENCOUNTER → 2023-05-23 | Outpatient (CLI) | payer MEDICARE, OTHER | LOC: M RAD 11:02 | PROVIDERS: ATTEND Family Medicine | DX: M79.89 Other specified soft tissue disorders (principal) ==

== ENCOUNTER → 2023-06-27 | Outpatient (CLI) | payer MEDICARE, OTHER ==
[2023-06-27 12:55] LABS: BASO % 0.7 % (0.0-1.0); EOS # 0.1 10^3/uL (0.0-0.5); EOS % 2.4 % (0.0-3.0); HEMOGLOBIN 9.9 g/dl (13.5-17.5); LYMPH # 0.5 10^3/uL (1.5-5.0); LYMPH % 10.9 % (24.0-44.0); MONO # 0.2 10^3/uL (0.0-0.8); MONO % 5.3 % (2.0-8.0); NEUTROPHILS # 3.6 10^3/uL (1.5-8.5); NEUTROPHILS % 80.5 % (36.0-66.0); PLATELET COUNT, AUTOMATED 148 10^3/uL (150-450); RED BLOOD COUNT 2.83 10^6/uL (4.30-6.10); WHITE BLOOD COUNT 4.5 10^3/uL (4.0-10.0)
[2023-06-27 13:10] LABS: APPEARANCE, URINE CLEAR (CLEAR); BACTERIA, URINE AUTO NEGATIVE (NEGATIVE); BILIRUBIN, URINE AUTO NEGATIVE (NEGATIVE); BLOOD, URINE BLOOD NEGATIVE (NEGATIVE); COLOR, URINE YELLOW (YELLOW); GLUCOSE, URINE (UA) AUTO NEGATIVE (NEGATIVE); KETONE, URINE AUTO NEGATIVE (NEGATIVE); LEUKOCYTE ESTERASE, URINE AUTO NEGATIVE (NEGATIVE); MUCUS, URINE SMALL (NEGATIVE); NITRITE, URINE AUTO NEGATIVE (NEGATIVE); PROTEIN, URINE AUTO NEGATIVE (NEGATIVE); RBC, URINE AUTO 1 /HPF (0-3); SPECIFIC GRAVITY URINE AUTO 1.015 (1.002-1.035); SQUAMOUS EPITHELIAL CELL UR AU 0 /HPF (0-6); UROBILINOGEN, URINE AUTO 0.2 mg/dL (0.0-2.0); WBC, URINE AUTO 0 /HPF (0-3)
[2023-06-27 13:14] LABS: ALBUMIN 4.1 G/DL (3.2-5.2); BILIRUBIN,DIRECT 0.2 MG/DL (<0.4); BILIRUBIN,TOTAL 0.5 MG/DL (0.3-1.2); CALCIUM LEVEL 9.4 MG/DL (8.3-10.6); CREATININE FOR GFR 2.26 MG/DL (0.70-1.30); CREATININE,RANDOM URINE 78.1 MG/DL; GLOMERULAR FILTRATION RATE 31.1 (>49); PHOSPHORUS LEVEL 4.7 MG/DL (2.4-5.1); POTASSIUM SERUM 4.5 MMOL/L (3.5-5.1); TOTAL PROTEIN 6.5 G/DL (5.7-8.2)
[2023-06-27 13:16] LABS: TOTAL PROTEIN,RANDOM URINE < 6.0 MG/DL (0.0-14.0)
== END ==
LOC: M LAB 12:13
PROVIDERS: ATTEND Nurse Practitioner Family
DX: Z51.81 Encounter for therapeutic drug level monitoring (principal)

== ENCOUNTER → 2023-08-14 | Outpatient (CLI) | payer MEDICARE, OTHER ==
[~2023-08-14] MED LIST changes: +ISOVUE-300 61% 100ML VIAL As Ordered ONE; +LIDOCAINE 1% MDV 20ML VIAL As Ordered ONE; +MIDAZOLAM INJ 2MG/2ML VIAL As Ordered ONE; +NS 1,000 ML IV SCH; +ceFAZolin 2 GM/D5W 50 ML IV BAG As Ordered ONE; +ceFAZolin SOD 2 GM in IV 1 EA IV ONE; +fentaNYL 100 MCG/2 ML INJECTION As Ordered ONE
[2023-08-14 09:05] VITALS: TEMP 98
[2023-08-14 09:39] LABS: HEMATOCRIT 27.4 % (42.0-52.0); HEMOGLOBIN 8.9 g/dl (13.5-17.5); MEAN CORPUSCULAR HEMOGLOBIN 35.5 pg (27.0-33.0); MEAN CORPUSCULAR HGB CONC 32.5 g/dl (32.0-36.5); MEAN CORPUSCULAR VOLUME 109.2 fl (80.0-96.0); PLATELET COUNT, AUTOMATED 141 10^3/uL (150-450); RED BLOOD COUNT 2.51 10^6/uL (4.30-6.10); WHITE BLOOD COUNT 2.8 10^3/uL (4.0-10.0)
[2023-08-14 10:01] LABS: INR 1.2; PROTHROMBIN TIME 14.8 SECONDS (12.5-14.5)
[2023-08-14 10:02] LABS: PARTIAL THROMBOPLASTIN TIME 38.2 SECONDS (24.8-34.2)
[2023-08-14 10:05] LABS: CALCIUM LEVEL 8.6 MG/DL (8.3-10.6); CREATININE FOR GFR 2.23 MG/DL (0.70-1.30); GLOMERULAR FILTRATION RATE 31.5 (>49); POTASSIUM SERUM 4.4 MMOL/L (3.5-5.1)
[2023-08-14 11:25] VITALS: BP 151/65; O2SAT 99
== END ==
LOC: M IRPRO 08:46
PROVIDERS: ATTEND Surgery Vascular Surgery
DX: N18.9 Chronic kidney disease, unspecified (principal)
CPT/HCPCS: 36415; 36902; 80048; 83735; 85027; 85610; 85730; 86850; 86900; 86901; 99152; 99153; C1729; J0690; J2250; J3010; Q9967

== ENCOUNTER 2023-09-30 12:01 | Emergency (ER) | payer MEDICARE, OTHER ==
[~2023-09-30] VITALS: Ht 170.2 cm; Wt 82.5 kg
[~2023-09-30 12:01] MED LIST changes: +CEFD1CAP9 PO; -CEFD300C41 PO; -ISOVUE-300 61% 100ML VIAL As Ordered ONE; -LIDOCAINE 1% MDV 20ML VIAL As Ordered ONE; -MIDAZOLAM INJ 2MG/2ML VIAL As Ordered ONE; -NS 1,000 ML IV SCH; -ceFAZolin 2 GM/D5W 50 ML IV BAG As Ordered ONE; -ceFAZolin SOD 2 GM in IV 1 EA IV ONE; -fentaNYL 100 MCG/2 ML INJECTION As Ordered ONE
[2023-09-30 12:02] VITALS: TEMP 98.7
[2023-09-30 13:28] LABS: INR 1.09; PROTHROMBIN TIME 13.8 SECONDS (12.5-14.5)
[2023-09-30 14:03] LABS: ALBUMIN 3.3 G/DL (3.2-5.2); BILIRUBIN,DIRECT 0.1 MG/DL (<0.4); BILIRUBIN,TOTAL 0.4 MG/DL (0.3-1.2); CALCIUM LEVEL 8.7 MG/DL (8.3-10.6); CREATININE FOR GFR 2.18 MG/DL (0.70-1.30); GLOMERULAR FILTRATION RATE 32.4 (>49); POTASSIUM SERUM 5.6 MMOL/L (3.5-5.1); TOTAL PROTEIN 5.7 G/DL (5.7-8.2)
[2023-09-30 14:28] LABS: BASO % 0.1 % (0.0-1.0); HEMATOCRIT 31.6 % (42.0-52.0); HEMOGLOBIN 10.4 g/dl (13.5-17.5); LYMPH # 0.1 10^3/uL (1.5-5.0); LYMPH % 1.8 % (24.0-44.0); MEAN CORPUSCULAR HEMOGLOBIN 35.4 pg (27.0-33.0); MEAN CORPUSCULAR HGB CONC 32.9 g/dl (32.0-36.5); MEAN CORPUSCULAR VOLUME 107.5 fl (80.0-96.0); MONO % 0.6 % (2.0-8.0); NEUTROPHILS # 6.6 10^3/uL (1.5-8.5); NEUTROPHILS % 96.9 % (36.0-66.0); PLATELET COUNT, AUTOMATED 170 10^3/uL (150-450); RED BLOOD COUNT 2.94 10^6/uL (4.30-6.10); WHITE BLOOD COUNT 6.8 10^3/uL (4.0-10.0)
[2023-09-30 17:15] VITALS: BP 140/67
[2023-09-30 17:31] VITALS: O2SAT 97
== END 2023-09-30 19:42 | disposition home or self-care (01) ==
LOC: M ED 12:01
DX: R60.9 Edema, unspecified (principal); N18.4 Chronic kidney disease, stage 4 (severe); Z94.0 Kidney transplant status; Z85.828 Personal history of other malignant neoplasm of skin; Z85.810 Personal history of malignant neoplasm of tongue; Z79.899 Other long term (current) drug therapy; Z88.8 Allergy status to other drugs, medicaments and biological substances

== ENCOUNTER 2023-10-29 07:30 | Inpatient (IN) | payer MEDICARE, OTHER ==
[~2023-10-29] VITALS: Ht 170.2 cm; Wt 61.3 kg
[~2023-10-29 07:30] MED LIST changes: -BUME1TAB3 GT; +BUME1TAB3 PO; -LEVO2TA GT; -MYCO1SUS GT; +MYCO1SUS PO; -PERC7.5T11 GT; -SYNT50TA GT; -VITMTA GT
[2023-10-29 09:15] LABS: BASO % 0.2 % (0.0-1.0); HEMATOCRIT 25.3 % (42.0-52.0); LYMPH # 0.1 10^3/uL (1.5-5.0); LYMPH % 2.4 % (24.0-44.0); MEAN CORPUSCULAR HEMOGLOBIN 35.4 pg (27.0-33.0); MEAN CORPUSCULAR HGB CONC 31.6 g/dl (32.0-36.5); MEAN CORPUSCULAR VOLUME 111.9 fl (80.0-96.0); MONO # 0.2 10^3/uL (0.0-0.8); MONO % 3.8 % (2.0-8.0); NEUTROPHILS # 4.7 10^3/uL (1.5-8.5); PLATELET COUNT, AUTOMATED 209 10^3/uL (150-450); RED BLOOD COUNT 2.26 10^6/uL (4.30-6.10)
[2023-10-29 09:27] LABS: INR 1.47; PROTHROMBIN TIME 17.3 SECONDS (12.5-14.5)
[2023-10-29 09:28] LABS: PARTIAL THROMBOPLASTIN TIME 41.3 SECONDS (24.8-34.2)
[2023-10-29 09:42] LABS: ALBUMIN 2.9 G/DL (3.2-5.2); BILIRUBIN,DIRECT 0.3 MG/DL (<0.4); BILIRUBIN,TOTAL 0.6 MG/DL (0.3-1.2); CALCIUM LEVEL 8.9 MG/DL (8.3-10.6); CREATININE FOR GFR 3.52 MG/DL (0.70-1.30); GLOMERULAR FILTRATION RATE 18.6 (>49); MB/CK RELATIVE INDEX 3.77 (< OR =4); POTASSIUM SERUM 4.9 MMOL/L (3.5-5.1); TOTAL PROTEIN 5.4 G/DL (5.7-8.2)
[2023-10-29 09:44] LABS: FREE T4 0.46 NG/DL (0.89-1.76); THYROID STIMULATING HORMONE 128.423 uIU/ML (0.55-4.78)
[2023-10-29 10:06] LABS: RSV AMPLIFICATION NEGATIVE (NEGATIVE)
[2023-10-29] MEDS ORDERED: MED REC IN PROGRESS XX SCH (10:45)
[2023-10-29 11:01] LABS: CK-MB VALUE MASS 3.1 NG/ML (<3.6)
[2023-10-29 11:02] LABS: MB/CK RELATIVE INDEX 5.53 (< OR =4)
[2023-10-29 11:27] LABS: ERYTHROCYTE SEDIMENTATION RATE 47 mm/hr (0-20)
[2023-10-29 11:30] LABS: C REACTIVE PROTEIN QUANTITATIV 27.2 MG/DL (<1.0)
[2023-10-29 11:44] LABS: CORTISOL AM 25.6 UG/DL (4.3-22.4)
[2023-10-29] MEDS ORDERED: TACR5CAP4 PO (12:32)
[2023-10-29] MEDS ORDERED: ASPI81CH33 PO (12:32)
[2023-10-29] MEDS ORDERED: BACI1CAP PO (12:32)
[2023-10-29] MEDS ORDERED: PRED5EL PO (12:32)
[2023-10-29] MEDS ORDERED: HOME MED LIST COMPLETE! XX SCH (12:35)
[2023-10-29] MEDS ORDERED: HEPARIN SOD (PORCINE) 5000UNITS/ML 1ML VIAL/SYRINGE IV PRN (13:35)
[2023-10-29] MEDS ORDERED: HEPARIN SOD (PORCINE) 5000UNITS/ML 1ML VIAL/SYRINGE IV ONE (13:35)
[2023-10-29] MEDS ORDERED: HEPARIN SOD (PORCINE) 5000UNITS/ML 1ML VIAL/SYRINGE SC SCH (14:00)
[2023-10-29] MEDS ORDERED: METOPROLOL TART 25 MG TABLET PO ONE (14:00)
[2023-10-29] MEDS: FUROSEMIDE injection 250 MG in D5W 225 ML IV SCH (20:03)
[2023-10-29] MEDS: TACROLIMUS 1MG CAP PO SCH (21:00)
[2023-10-29] MEDS: MYCOPHENOLATE 200 MG/ML PO SCH (23:19)
[2023-10-29] MEDS: [UNRECOGNIZED DRUG - OTHER] PO SCH (23:19)
[2023-10-29] MEDS: METOPROLOL TART 25 MG TABLET PO SCH (23:19)
[2023-10-29] MEDS: HEPARIN DRIP 25,000 UNITS in IV 1 EA IV SCH (23:30)
[2023-10-30 05:44] VITALS: BP 118/82; TEMP 96.6; O2SAT 99
[2023-10-30] MEDS ORDERED: LEVOTHYROXINE 100MCG TABLET (0.1MG) PO SCH (06:00)
[2023-10-30] MEDS: LEVOTHYROXINE 50MCG TABLET (0.05MG) PO SCH (06:07)
[2023-10-30] MEDS: METOPROLOL TART 25 MG TABLET PO SCH (06:08)
[2023-10-30 06:17] LABS: HEMATOCRIT 28.4 % (42.0-52.0); HEMOGLOBIN 8.9 g/dl (13.5-17.5); MEAN CORPUSCULAR HEMOGLOBIN 34.8 pg (27.0-33.0); MEAN CORPUSCULAR HGB CONC 31.3 g/dl (32.0-36.5); MEAN CORPUSCULAR VOLUME 110.9 fl (80.0-96.0); PLATELET COUNT, AUTOMATED 258 10^3/uL (150-450); RED BLOOD COUNT 2.56 10^6/uL (4.30-6.10); WHITE BLOOD COUNT 4.5 10^3/uL (4.0-10.0)
[2023-10-30 06:49] LABS: CALCIUM LEVEL 8.8 MG/DL (8.3-10.6); CREATININE FOR GFR 3.39 MG/DL (0.70-1.30); GLOMERULAR FILTRATION RATE 19.5 (>49); POTASSIUM SERUM 5.5 MMOL/L (3.5-5.1)
[2023-10-30 08:00] VITALS: BP 115/67; TEMP 98.2; O2SAT 100
[2023-10-30] MEDS ORDERED: PATIROMER SORBITEX CALCIUM 8.4 GM POWDER PACKET (VELTASSA) PO ONE (09:00)
[2023-10-30] MEDS: MULTIVITAMINS/MINERALS THERAP 1 TAB PO SCH (09:19)
[2023-10-30] MEDS: ASPIRIN 81MG CHEW TABLET PO SCH (09:20)
[2023-10-30] MEDS: MYCOPHENOLATE 200 MG/ML PO SCH ×2 (09:20→21:06)
[2023-10-30] MEDS: [UNRECOGNIZED DRUG - OTHER] PO SCH ×2 (09:20→21:06)
[2023-10-30] MEDS: TACROLIMUS 1MG CAP PO SCH ×2 (09:20→21:06)
[2023-10-30] MEDS: predniSONE 5 MG TAB PO SCH (09:20)
[2023-10-30] MEDS ORDERED: metOLazone 5 MG TAB PO ONE (11:00)
[2023-10-30] MEDS: METOPROLOL TART 50 MG TAB PO SCH ×2 (15:08→21:06)
[2023-10-30 20:00] VITALS: BP 119/67; TEMP 97.6; O2SAT 100
[2023-10-30] MEDS: FUROSEMIDE injection 250 MG in D5W 225 ML IV SCH (21:23)
[2023-10-30] MEDS: HEPARIN DRIP 25,000 UNITS in IV 1 EA IV SCH (21:51)
[2023-10-31] VITALS (15 sets, daily range): BP systolic 92–119; BP diastolic 58–73; TEMP 97.1–98.3; O2SAT 96–100
[2023-10-31 03:42] LABS: HEMATOCRIT 26.4 % (42.0-52.0); HEMOGLOBIN 8.6 g/dl (13.5-17.5); MEAN CORPUSCULAR HEMOGLOBIN 35.5 pg (27.0-33.0); MEAN CORPUSCULAR HGB CONC 32.6 g/dl (32.0-36.5); MEAN CORPUSCULAR VOLUME 109.1 fl (80.0-96.0); PLATELET COUNT, AUTOMATED 266 10^3/uL (150-450); RED BLOOD COUNT 2.42 10^6/uL (4.30-6.10); WHITE BLOOD COUNT 3.9 10^3/uL (4.0-10.0)
[2023-10-31 03:57] LABS: PERCENT SATURATION 16.2 % (19.7-50.0)
[2023-10-31 03:58] LABS: ALBUMIN 2.6 G/DL (3.2-5.2); CALCIUM LEVEL 8.4 MG/DL (8.3-10.6); CREATININE FOR GFR 3.34 MG/DL (0.70-1.30); GLOMERULAR FILTRATION RATE 19.8 (>49); PHOSPHORUS LEVEL 5.6 MG/DL (2.4-5.1); POTASSIUM SERUM 5.2 MMOL/L (3.5-5.1)
[2023-10-31 05:47] LABS: FERRITIN 3420.8 NG/ML (10.5-307.3)
[2023-10-31 06:06] LABS: FOLATE 19.2 NG/ML (>5.4)
[2023-10-31] MEDS: LEVOTHYROXINE 50MCG TABLET (0.05MG) PO SCH (06:49)
[2023-10-31 07:38] LABS: ERYTHROCYTE SEDIMENTATION RATE 49 mm/hr (0-20)
[2023-10-31] MEDS: predniSONE 5 MG TAB PO SCH (07:58)
[2023-10-31] MEDS: ASPIRIN 81MG CHEW TABLET PO SCH (07:58)
[2023-10-31] MEDS: MULTIVITAMINS/MINERALS THERAP 1 TAB PO SCH (07:59)
[2023-10-31] MEDS: [UNRECOGNIZED DRUG - OTHER] PO SCH ×2 (07:59→20:54)
[2023-10-31] MEDS: TACROLIMUS 1MG CAP PO SCH ×2 (07:59→20:55)
[2023-10-31] MEDS: MYCOPHENOLATE 200 MG/ML PO SCH ×2 (07:59→20:54)
[2023-10-31] MEDS ORDERED: LEVOTHYROXINE 100MCG (0.1MG) 5ML SDV PF (SOLUTION FORM) IV ONE (08:00)
[2023-10-31] MEDS ORDERED: PATIROMER SORBITEX CALCIUM 8.4 GM POWDER PACKET (VELTASSA) PO ONE (08:00)
[2023-10-31 08:18] LABS: C REACTIVE PROTEIN QUANTITATIV 23.2 MG/DL (<1.0); MAGNESIUM LEVEL 2.1 MG/DL (1.8-2.4)
[2023-10-31 08:27] LABS: PROCALCITONIN 0.8 ng/ml
[2023-10-31] MEDS ORDERED: LEVOTHYROXINE 100MCG (0.1MG) 5ML SDV PF (SOLUTION FORM) IV SCH (09:00)
[2023-10-31] MEDS: APIXABAN 5 MG TAB (ELIQUIS) PO SCH ×2 (11:56→20:54)
[2023-10-31] MEDS ORDERED: LEVEMIR (INSULIN DETEMIR) 1 UNITS/0.01ML SC STA (13:38)
[2023-10-31] MEDS: METOPROLOL TARTRATE 100MG TAB PO SCH ×2 (13:48→21:00)
[2023-10-31] MEDS: FUROSEMIDE injection 250 MG in D5W 225 ML IV SCH (18:21)
[2023-11-01] VITALS (19 sets, daily range): BP systolic 94–116; BP diastolic 57–69; TEMP 97.5–99.1; O2SAT 94–100
[2023-11-01] MEDS: METOPROLOL TARTRATE 100MG TAB PO SCH (05:37)
[2023-11-01] MEDS: LEVOTHYROXINE 100MCG (0.1MG) 5ML SDV PF (SOLUTION FORM) IV SCH (05:37)
[2023-11-01 06:44] LABS: HEMATOCRIT 27.3 % (42.0-52.0); HEMOGLOBIN 8.7 g/dl (13.5-17.5); MEAN CORPUSCULAR HEMOGLOBIN 34.9 pg (27.0-33.0); MEAN CORPUSCULAR HGB CONC 31.9 g/dl (32.0-36.5); MEAN CORPUSCULAR VOLUME 109.6 fl (80.0-96.0); PLATELET COUNT, AUTOMATED 281 10^3/uL (150-450); RED BLOOD COUNT 2.49 10^6/uL (4.30-6.10); WHITE BLOOD COUNT 3.7 10^3/uL (4.0-10.0)
[2023-11-01 07:10] LABS: ALBUMIN 2.5 G/DL (3.2-5.2); CALCIUM LEVEL 8.3 MG/DL (8.3-10.6); CREATININE FOR GFR 3.2 MG/DL (0.70-1.30); GLOMERULAR FILTRATION RATE 20.8 (>49); PHOSPHORUS LEVEL 5.1 MG/DL (2.4-5.1); POTASSIUM SERUM 5.1 MMOL/L (3.5-5.1)
[2023-11-01] MEDS: MYCOPHENOLATE 200 MG/ML PO SCH ×2 (09:21→20:58)
[2023-11-01] MEDS: [UNRECOGNIZED DRUG - OTHER] PO SCH ×2 (09:21→20:58)
[2023-11-01] MEDS: predniSONE 5 MG TAB PO SCH (09:22)
[2023-11-01] MEDS: TACROLIMUS 1MG CAP PO SCH ×2 (09:22→20:58)
[2023-11-01] MEDS: MULTIVITAMINS/MINERALS THERAP 1 TAB PO SCH (09:23)
[2023-11-01] MEDS: ASPIRIN 81MG CHEW TABLET PO SCH (09:23)
[2023-11-01] MEDS: DIGOXIN 0.25 MG TAB PO SCH (09:23)
[2023-11-01] MEDS: APIXABAN 2.5 MG TAB (ELIQUIS) PO SCH ×2 (09:24→20:58)
[2023-11-01] MEDS: METOPROLOL TART 25 MG TABLET PO SCH ×3 (13:02→23:12)
[2023-11-01 13:16] LABS: MYCOPHENOLIC ACID SERUM 0.4 ug/mL (1.0-3.5)
[2023-11-01] MEDS: FUROSEMIDE injection 250 MG in D5W 225 ML IV SCH (17:41)
[2023-11-01] MEDS: PERCOCET 5MG/325MG TAB PO PRN (18:37)
[2023-11-01] MEDS: ACETAMINOPHEN TAB 650MG DOSE (2X325MG) PO PRN (20:58)
[2023-11-02 03:03] VITALS: BP 105/56; TEMP 98.3; O2SAT 100
[2023-11-02] MEDS: PERCOCET 5MG/325MG TAB PO PRN ×3 (03:46→17:22)
[2023-11-02] MEDS: METOPROLOL TART 25 MG TABLET PO SCH ×3 (05:07→17:21)
[2023-11-02] MEDS: LEVOTHYROXINE 100MCG (0.1MG) 5ML SDV PF (SOLUTION FORM) IV SCH (05:07)
[2023-11-02 08:16] VITALS: BP 103/56; TEMP 97.2
[2023-11-02 08:50] LABS: HEMATOCRIT 28.2 % (42.0-52.0); HEMOGLOBIN 8.8 g/dl (13.5-17.5); MEAN CORPUSCULAR HEMOGLOBIN 34.5 pg (27.0-33.0); MEAN CORPUSCULAR HGB CONC 31.2 g/dl (32.0-36.5); MEAN CORPUSCULAR VOLUME 110.6 fl (80.0-96.0); PLATELET COUNT, AUTOMATED 281 10^3/uL (150-450); RED BLOOD COUNT 2.55 10^6/uL (4.30-6.10); WHITE BLOOD COUNT 3.8 10^3/uL (4.0-10.0)
[2023-11-02 09:54] LABS: ALBUMIN 2.6 G/DL (3.2-5.2)
[2023-11-02] MEDS: ASPIRIN 81MG CHEW TABLET PO SCH (09:54)
[2023-11-02] MEDS: TACROLIMUS 1MG CAP PO SCH ×2 (09:54→21:42)
[2023-11-02] MEDS: [UNRECOGNIZED DRUG - OTHER] PO SCH ×2 (09:54→21:42)
[2023-11-02] MEDS: MYCOPHENOLATE 200 MG/ML PO SCH ×2 (09:54→21:42)
[2023-11-02] MEDS: APIXABAN 2.5 MG TAB (ELIQUIS) PO SCH ×2 (09:55→21:42)
[2023-11-02] MEDS: DIGOXIN 0.25 MG TAB PO SCH (09:55)
[2023-11-02] MEDS: MULTIVITAMINS/MINERALS THERAP 1 TAB PO SCH (09:55)
[2023-11-02] MEDS: predniSONE 5 MG TAB PO SCH (09:55)
[2023-11-02 10:07] LABS: CALCIUM LEVEL 8.2 MG/DL (8.3-10.6); CREATININE FOR GFR 3.05 MG/DL (0.70-1.30); MAGNESIUM LEVEL 2.1 MG/DL (1.8-2.4); POTASSIUM SERUM 5.3 MMOL/L (3.5-5.1)
[2023-11-02 12:38] VITALS: BP 123/56; TEMP 97.2; O2SAT 99
[2023-11-02] MEDS: ACETAMINOPHEN TAB 650MG DOSE (2X325MG) PO PRN (12:56)
[2023-11-02] MEDS: FUROSEMIDE injection 250 MG in D5W 225 ML IV SCH (14:00)
[2023-11-02] MEDS ORDERED: PATIROMER SORBITEX CALCIUM 8.4 GM POWDER PACKET (VELTASSA) PO ONE (14:00)
[2023-11-02 15:53] VITALS: BP 114/71
[2023-11-02 19:44] VITALS: BP 106/53; TEMP 97; O2SAT 95
[2023-11-03] MEDS: PERCOCET 5MG/325MG TAB PO PRN ×3 (00:29→21:54)
[2023-11-03 05:25] VITALS: BP 99/53; TEMP 97.5; O2SAT 97
[2023-11-03] MEDS: METOPROLOL TART 25 MG TABLET PO SCH ×2 (06:00)
[2023-11-03 06:13] LABS: HEMATOCRIT 27.7 % (42.0-52.0); HEMOGLOBIN 9.1 g/dl (13.5-17.5); MEAN CORPUSCULAR HEMOGLOBIN 35.1 pg (27.0-33.0); MEAN CORPUSCULAR HGB CONC 32.9 g/dl (32.0-36.5); MEAN CORPUSCULAR VOLUME 106.9 fl (80.0-96.0); PLATELET COUNT, AUTOMATED 303 10^3/uL (150-450); RED BLOOD COUNT 2.59 10^6/uL (4.30-6.10); WHITE BLOOD COUNT 6.8 10^3/uL (4.0-10.0)
[2023-11-03 06:45] LABS: ALBUMIN 2.4 G/DL (3.2-5.2); CALCIUM LEVEL 8.2 MG/DL (8.3-10.6); CREATININE FOR GFR 2.92 MG/DL (0.70-1.30); FREE T4 0.55 NG/DL (0.89-1.76); GLOMERULAR FILTRATION RATE 23.1 (>49); PHOSPHORUS LEVEL 5.1 MG/DL (2.4-5.1); POTASSIUM SERUM 5.3 MMOL/L (3.5-5.1); THYROID STIMULATING HORMONE 64.093 uIU/ML (0.55-4.78); TOTAL T3 29.4 NG/DL (60.0-181.0)
[2023-11-03] MEDS: LEVOTHYROXINE 100MCG (0.1MG) 5ML SDV PF (SOLUTION FORM) IV SCH (06:51)
[2023-11-03] MEDS: [UNRECOGNIZED DRUG - OTHER] PO SCH ×2 (09:44→21:53)
[2023-11-03] MEDS: MYCOPHENOLATE 200 MG/ML PO SCH ×2 (09:44→21:53)
[2023-11-03] MEDS: MULTIVITAMINS/MINERALS THERAP 1 TAB PO SCH (09:45)
[2023-11-03] MEDS: APIXABAN 2.5 MG TAB (ELIQUIS) PO SCH ×2 (09:45→21:53)
[2023-11-03] MEDS: predniSONE 5 MG TAB PO SCH (09:45)
[2023-11-03] MEDS: TACROLIMUS 1MG CAP PO SCH ×2 (09:45→21:53)
[2023-11-03] MEDS: DIGOXIN 0.25 MG TAB PO SCH (09:45)
[2023-11-03] MEDS: ASPIRIN 81MG CHEW TABLET PO SCH (09:46)
[2023-11-03 11:36] VITALS: BP 104/62; TEMP 98.6; O2SAT 96
[2023-11-03] MEDS: FUROSEMIDE injection 250 MG in D5W 225 ML IV SCH (13:57)
[2023-11-03 16:40] VITALS: BP 106/52; TEMP 98.1; O2SAT 98
[2023-11-03 19:33] VITALS: BP 100/48; TEMP 98; O2SAT 97
[2023-11-04 04:29] VITALS: BP 119/59; TEMP 97.8; O2SAT 99
[2023-11-04] MEDS: LEVOTHYROXINE 100MCG (0.1MG) 5ML SDV PF (SOLUTION FORM) IV SCH (05:40)
[2023-11-04 06:02] LABS: HEMATOCRIT 27.9 % (42.0-52.0); MEAN CORPUSCULAR HEMOGLOBIN 34.7 pg (27.0-33.0); MEAN CORPUSCULAR HGB CONC 32.3 g/dl (32.0-36.5); MEAN CORPUSCULAR VOLUME 107.7 fl (80.0-96.0); PLATELET COUNT, AUTOMATED 311 10^3/uL (150-450); RED BLOOD COUNT 2.59 10^6/uL (4.30-6.10)
[2023-11-04 06:39] LABS: ALBUMIN 2.4 G/DL (3.2-5.2); CALCIUM LEVEL 8.4 MG/DL (8.3-10.6); CREATININE FOR GFR 2.81 MG/DL (0.70-1.30); GLOMERULAR FILTRATION RATE 24.2 (>49); MAGNESIUM LEVEL 2.1 MG/DL (1.8-2.4); PHOSPHORUS LEVEL 4.7 MG/DL (2.4-5.1); POTASSIUM SERUM 5.2 MMOL/L (3.5-5.1)
[2023-11-04 08:35] VITALS: BP 116/62; TEMP 98.9; O2SAT 99
[2023-11-04] MEDS: APIXABAN 2.5 MG TAB (ELIQUIS) PO SCH ×2 (09:44→20:53)
[2023-11-04] MEDS: ASPIRIN 81MG CHEW TABLET PO SCH (09:44)
[2023-11-04] MEDS: DIGOXIN 0.0625MG PER 1/2TABLET PO SCH (09:44)
[2023-11-04] MEDS: MYCOPHENOLATE 200 MG/ML PO SCH ×2 (09:44→20:53)
[2023-11-04] MEDS: TACROLIMUS 1MG CAP PO SCH ×2 (09:44→20:54)
[2023-11-04] MEDS: predniSONE 5 MG TAB PO SCH (09:44)
[2023-11-04] MEDS: [UNRECOGNIZED DRUG - OTHER] PO SCH ×2 (09:44→20:53)
[2023-11-04] MEDS: MULTIVITAMINS/MINERALS THERAP 1 TAB PO SCH (09:44)
[2023-11-04 11:31] VITALS: BP 123/78; TEMP 97.9; O2SAT 99
[2023-11-04 16:08] VITALS: BP 120/70; TEMP 98.1; O2SAT 96
[2023-11-04 19:47] VITALS: BP 111/58; TEMP 97.5; O2SAT 100
[2023-11-04] MEDS: TORSEMIDE (DEMADEX) 50 MG PER 1/2 TAB PO SCH (20:53)
[2023-11-04] MEDS: PERCOCET 5MG/325MG TAB PO PRN (20:53)
[2023-11-05 05:32] VITALS: BP 123/58; TEMP 97.3; O2SAT 98
[2023-11-05] MEDS: LEVOTHYROXINE 100MCG (0.1MG) 5ML SDV PF (SOLUTION FORM) IV SCH (05:36)
[2023-11-05 06:31] LABS: HEMATOCRIT 28.6 % (42.0-52.0); HEMOGLOBIN 9.1 g/dl (13.5-17.5); MEAN CORPUSCULAR HEMOGLOBIN 34.7 pg (27.0-33.0); MEAN CORPUSCULAR HGB CONC 31.8 g/dl (32.0-36.5); MEAN CORPUSCULAR VOLUME 109.2 fl (80.0-96.0); PLATELET COUNT, AUTOMATED 343 10^3/uL (150-450); RED BLOOD COUNT 2.62 10^6/uL (4.30-6.10); WHITE BLOOD COUNT 4.3 10^3/uL (4.0-10.0)
[2023-11-05 06:56] LABS: ALBUMIN 2.4 G/DL (3.2-5.2); CALCIUM LEVEL 8.6 MG/DL (8.3-10.6); CREATININE FOR GFR 2.82 MG/DL (0.70-1.30); GLOMERULAR FILTRATION RATE 24.1 (>49); MAGNESIUM LEVEL 2.2 MG/DL (1.8-2.4); PHOSPHORUS LEVEL 5.4 MG/DL (2.4-5.1); POTASSIUM SERUM 5.7 MMOL/L (3.5-5.1)
[2023-11-05 07:59] VITALS: BP 117/67; TEMP 98.2; O2SAT 100
[2023-11-05] MEDS ORDERED: metOLazone 2.5 MG TAB PO SCH (09:00)
[2023-11-05] MEDS: ASPIRIN 81MG CHEW TABLET PO SCH (09:30)
[2023-11-05] MEDS: MULTIVITAMINS/MINERALS THERAP 1 TAB PO SCH (09:30)
[2023-11-05] MEDS: APIXABAN 2.5 MG TAB (ELIQUIS) PO SCH ×2 (09:30→21:20)
[2023-11-05] MEDS: DIGOXIN 0.0625MG PER 1/2TABLET PO SCH (09:30)
[2023-11-05] MEDS: [UNRECOGNIZED DRUG - OTHER] PO SCH ×2 (09:31→21:21)
[2023-11-05] MEDS: MYCOPHENOLATE 200 MG/ML PO SCH ×2 (09:31→21:21)
[2023-11-05] MEDS: TORSEMIDE (DEMADEX) 50 MG PER 1/2 TAB PO SCH ×2 (09:31→16:32)
[2023-11-05] MEDS: predniSONE 5 MG TAB PO SCH (09:31)
[2023-11-05 11:55] VITALS: BP 110/75; TEMP 96.8; O2SAT 98
[2023-11-05] MEDS ORDERED: PATIROMER SORBITEX CALCIUM 8.4 GM POWDER PACKET (VELTASSA) PO ONE (12:00)
[2023-11-05] MEDS: TACROLIMUS 1MG CAP PO SCH (15:13)
[2023-11-05] MEDS: PERCOCET 5MG/325MG TAB PO PRN (15:22)
[2023-11-05 16:26] VITALS: BP 115/76; TEMP 97.7; O2SAT 94
[2023-11-05 20:00] VITALS: BP 118/70; TEMP 98.4; O2SAT 97
[2023-11-06] VITALS (9 sets, daily range): BP systolic 93–139; BP diastolic 45–76; TEMP 97.5–98.2; O2SAT 76–98
[2023-11-06] MEDS: TACROLIMUS 1MG CAP PO SCH (01:47)
[2023-11-06 06:29] LABS: MAGNESIUM LEVEL 2.3 MG/DL (1.8-2.4)
[2023-11-06] MEDS: LEVOTHYROXINE 100MCG (0.1MG) 5ML SDV PF (SOLUTION FORM) IV SCH (06:29)
[2023-11-06 06:31] LABS: DIGOXIN LEVEL 1.3 NG/ML (0.8-2.0)
[2023-11-06 07:41] LABS: ALBUMIN 2.5 G/DL (3.2-5.2); CALCIUM LEVEL 8.7 MG/DL (8.3-10.6); CREATININE FOR GFR 2.7 MG/DL (0.70-1.30); GLOMERULAR FILTRATION RATE 25.3 (>49); PHOSPHORUS LEVEL 5.9 MG/DL (2.4-5.1)
[2023-11-06 07:41] LABS: HEMATOCRIT 29.8 % (42.0-52.0); HEMOGLOBIN 9.3 g/dl (13.5-17.5); MEAN CORPUSCULAR HEMOGLOBIN 34.2 pg (27.0-33.0); MEAN CORPUSCULAR HGB CONC 31.2 g/dl (32.0-36.5); MEAN CORPUSCULAR VOLUME 109.6 fl (80.0-96.0); PLATELET COUNT, AUTOMATED 436 10^3/uL (150-450); RED BLOOD COUNT 2.72 10^6/uL (4.30-6.10); WHITE BLOOD COUNT 5.4 10^3/uL (4.0-10.0)
[2023-11-06] MEDS ORDERED: FUROSEMIDE 40MG/4ML VIAL IV STA (08:55)
[2023-11-06] MEDS ORDERED: HumuLIN R (REGULAR) INSULIN (NovoLIN R) **100U/ML** PER UNIT IV STA (08:55)
[2023-11-06] MEDS ORDERED: DEXTROSE 50% 50ML SYRINGE IV STA (08:55)
[2023-11-06] MEDS: APIXABAN 2.5 MG TAB (ELIQUIS) PO SCH ×2 (09:47→20:19)
[2023-11-06] MEDS: predniSONE 5 MG TAB PO SCH (09:47)
[2023-11-06] MEDS: MULTIVITAMINS/MINERALS THERAP 1 TAB PO SCH (09:47)
[2023-11-06] MEDS: DIGOXIN 0.0625MG PER 1/2TABLET PO SCH (09:47)
[2023-11-06] MEDS: ASPIRIN 81MG CHEW TABLET PO SCH (09:48)
[2023-11-06] MEDS: [UNRECOGNIZED DRUG - OTHER] PO SCH ×2 (09:48→20:19)
[2023-11-06] MEDS: MYCOPHENOLATE 200 MG/ML PO SCH ×2 (09:48→20:19)
[2023-11-06] MEDS: PERCOCET 5MG/325MG TAB PO PRN (09:56)
[2023-11-06 12:56] LABS: ALBUMIN 2.4 G/DL (3.2-5.2); CALCIUM LEVEL 8.4 MG/DL (8.3-10.6); CREATININE FOR GFR 2.8 MG/DL (0.70-1.30); GLOMERULAR FILTRATION RATE 24.3 (>49); PHOSPHORUS LEVEL 5.4 MG/DL (2.4-5.1); POTASSIUM SERUM 5.1 MMOL/L (3.5-5.1)
[2023-11-06] MEDS: PATIROMER SORBITEX CALCIUM 8.4 GM POWDER PACKET (VELTASSA) PO SCH (13:10)
[2023-11-06] MEDS ORDERED: PATIROMER SORBITEX CALCIUM 8.4 GM POWDER PACKET (VELTASSA) PO ONE (16:00)
[2023-11-06] MEDS: TORSEMIDE (DEMADEX) 50 MG PER 1/2 TAB PO SCH (17:39)
[2023-11-07 05:50] VITALS: BP 102/54; TEMP 97.5; O2SAT 97
[2023-11-07] MEDS: LEVOTHYROXINE 100MCG (0.1MG) 5ML SDV PF (SOLUTION FORM) IV SCH (05:55)
[2023-11-07] MEDS ORDERED: LEVOTHYROXINE 100MCG (0.1MG) 5ML SDV PF (SOLUTION FORM) IV SCH (06:00)
[2023-11-07 06:24] LABS: ALBUMIN 2.4 G/DL (3.2-5.2); CALCIUM LEVEL 8.7 MG/DL (8.3-10.6); CREATININE FOR GFR 2.75 MG/DL (0.70-1.30); GLOMERULAR FILTRATION RATE 24.8 (>49); PHOSPHORUS LEVEL 5.8 MG/DL (2.4-5.1); POTASSIUM SERUM 5.8 MMOL/L (3.5-5.1)
[2023-11-07 09:12] VITALS: BP 106/38
[2023-11-07] MEDS: MYCOPHENOLATE 200 MG/ML PO SCH ×2 (09:13→21:16)
[2023-11-07] MEDS: ASPIRIN 81MG CHEW TABLET PO SCH (09:13)
[2023-11-07] MEDS: [UNRECOGNIZED DRUG - OTHER] PO SCH ×2 (09:13→21:16)
[2023-11-07] MEDS: DIGOXIN 0.0625MG PER 1/2TABLET PO SCH (09:14)
[2023-11-07] MEDS: APIXABAN 2.5 MG TAB (ELIQUIS) PO SCH ×2 (09:14→21:15)
[2023-11-07] MEDS: predniSONE 5 MG TAB PO SCH (09:14)
[2023-11-07] MEDS: PERCOCET 5MG/325MG TAB PO PRN (09:14)
[2023-11-07] MEDS: MULTIVITAMINS/MINERALS THERAP 1 TAB PO SCH (09:14)
[2023-11-07] MEDS: PATIROMER SORBITEX CALCIUM 8.4 GM POWDER PACKET (VELTASSA) PO SCH (11:15)
[2023-11-07] MEDS ORDERED: DIGOXIN 0.0625MG PER 1/2TABLET PO ONE (13:00)
[2023-11-07 14:00] VITALS: BP 116/61; TEMP 97.5; O2SAT 99
[2023-11-07 20:43] VITALS: BP 115/63; TEMP 97.7; O2SAT 95
[2023-11-07] MEDS: TAMSULOSIN 0.4 MG CAP PO SCH (21:16)
[2023-11-08] MEDS: LEVOTHYROXINE 100MCG (0.1MG) 5ML SDV PF (SOLUTION FORM) IV SCH (05:52)
[2023-11-08 06:22] LABS: DIGOXIN LEVEL 1.4 NG/ML (0.8-2.0)
[2023-11-08 07:29] LABS: ALBUMIN 2.3 G/DL (3.2-5.2); CALCIUM LEVEL 8.5 MG/DL (8.3-10.6); CREATININE FOR GFR 2.58 MG/DL (0.70-1.30); GLOMERULAR FILTRATION RATE 26.7 (>49); PHOSPHORUS LEVEL 5.5 MG/DL (2.4-5.1); POTASSIUM SERUM 5.4 MMOL/L (3.5-5.1)
[2023-11-08 08:11] LABS: HEMATOCRIT 26.4 % (42.0-52.0); HEMOGLOBIN 8.4 g/dl (13.5-17.5); MEAN CORPUSCULAR HEMOGLOBIN 34.1 pg (27.0-33.0); MEAN CORPUSCULAR HGB CONC 31.8 g/dl (32.0-36.5); MEAN CORPUSCULAR VOLUME 107.3 fl (80.0-96.0); PLATELET COUNT, AUTOMATED 367 10^3/uL (150-450); RED BLOOD COUNT 2.46 10^6/uL (4.30-6.10); WHITE BLOOD COUNT 4.4 10^3/uL (4.0-10.0)
[2023-11-08] MEDS: [UNRECOGNIZED DRUG - OTHER] PO SCH ×2 (09:49→20:36)
[2023-11-08] MEDS: ASPIRIN 81MG CHEW TABLET PO SCH (09:49)
[2023-11-08] MEDS: MYCOPHENOLATE 200 MG/ML PO SCH ×2 (09:49→20:36)
[2023-11-08] MEDS: DIGOXIN 0.0625MG PER 1/2TABLET PO SCH (09:50)
[2023-11-08] MEDS: predniSONE 5 MG TAB PO SCH (09:50)
[2023-11-08] MEDS: MULTIVITAMINS/MINERALS THERAP 1 TAB PO SCH (09:50)
[2023-11-08] MEDS: APIXABAN 2.5 MG TAB (ELIQUIS) PO SCH ×2 (09:50→20:37)
[2023-11-08] MEDS: METOPROLOL TART 25 MG TABLET PO SCH ×2 (09:51→20:37)
[2023-11-08] MEDS: PATIROMER SORBITEX CALCIUM 8.4 GM POWDER PACKET (VELTASSA) PO SCH (12:26)
[2023-11-08 14:00] VITALS: BP 97/58; TEMP 97.9; O2SAT 94
[2023-11-08] MEDS ORDERED: DIGOXIN 0.0625MG PER 1/2TABLET PO ONE (17:00)
[2023-11-08 19:46] VITALS: BP 114/64; TEMP 98.1; O2SAT 96
[2023-11-08] MEDS: TAMSULOSIN 0.4 MG CAP PO SCH (20:37)
[2023-11-09 05:54] VITALS: BP 116/61; TEMP 98.1; O2SAT 96
[2023-11-09 06:49] LABS: ALBUMIN 2.2 G/DL (3.2-5.2); CALCIUM LEVEL 8.6 MG/DL (8.3-10.6); CREATININE FOR GFR 2.39 MG/DL (0.70-1.30); DIGOXIN LEVEL 1.7 NG/ML (0.8-2.0); GLOMERULAR FILTRATION RATE 29.1 (>49); PHOSPHORUS LEVEL 5.2 MG/DL (2.4-5.1); POTASSIUM SERUM 5.6 MMOL/L (3.5-5.1)
[2023-11-09 06:51] LABS: THYROID STIMULATING HORMONE 57.062 uIU/ML (0.55-4.78)
[2023-11-09 06:52] LABS: FREE T4 0.6 NG/DL (0.89-1.76)
[2023-11-09] MEDS: LEVOTHYROXINE 100MCG (0.1MG) 5ML SDV PF (SOLUTION FORM) IV SCH (06:59)
[2023-11-09] MEDS ORDERED: FUROSEMIDE 100MG/10ML VIAL IV ONE (07:30)
[2023-11-09 08:23] LABS: HEMATOCRIT 25.6 % (42.0-52.0); MEAN CORPUSCULAR HEMOGLOBIN 33.9 pg (27.0-33.0); MEAN CORPUSCULAR HGB CONC 31.3 g/dl (32.0-36.5); MEAN CORPUSCULAR VOLUME 108.5 fl (80.0-96.0); PLATELET COUNT, AUTOMATED 318 10^3/uL (150-450); RED BLOOD COUNT 2.36 10^6/uL (4.30-6.10); WHITE BLOOD COUNT 6.9 10^3/uL (4.0-10.0)
[2023-11-09] MEDS: ASPIRIN 81MG CHEW TABLET PO SCH (09:35)
[2023-11-09] MEDS: [UNRECOGNIZED DRUG - OTHER] PO SCH ×2 (09:35→20:10)
[2023-11-09] MEDS: MYCOPHENOLATE 200 MG/ML PO SCH ×2 (09:35→20:10)
[2023-11-09] MEDS: MULTIVITAMINS/MINERALS THERAP 1 TAB PO SCH (09:37)
[2023-11-09] MEDS: predniSONE 5 MG TAB PO SCH (09:37)
[2023-11-09] MEDS: DIGOXIN 0.0625MG PER 1/2TABLET PO SCH (09:37)
[2023-11-09] MEDS: APIXABAN 2.5 MG TAB (ELIQUIS) PO SCH ×2 (09:37→20:10)
[2023-11-09] MEDS: METOPROLOL TART 25 MG TABLET PO SCH ×2 (09:37→20:12)
[2023-11-09] MEDS: PATIROMER SORBITEX CALCIUM 8.4 GM POWDER PACKET (VELTASSA) PO SCH (12:32)
[2023-11-09 14:00] VITALS: BP 111/61; TEMP 98.6; O2SAT 96
[2023-11-09 19:41] VITALS: BP 128/58; TEMP 98.6; O2SAT 94
[2023-11-09] MEDS: TAMSULOSIN 0.4 MG CAP PO SCH (20:10)
[2023-11-10 05:28] VITALS: BP 105/61; TEMP 97.9; O2SAT 95
[2023-11-10] MEDS: LEVOTHYROXINE 100MCG (0.1MG) 5ML SDV PF (SOLUTION FORM) IV SCH (05:40)
[2023-11-10 06:55] LABS: HEMATOCRIT 26.1 % (42.0-52.0); HEMOGLOBIN 8.1 g/dl (13.5-17.5); MEAN CORPUSCULAR HEMOGLOBIN 33.8 pg (27.0-33.0); MEAN CORPUSCULAR VOLUME 108.8 fl (80.0-96.0); PLATELET COUNT, AUTOMATED 285 10^3/uL (150-450); WHITE BLOOD COUNT 5.8 10^3/uL (4.0-10.0)
[2023-11-10 07:11] LABS: ALBUMIN 2.2 G/DL (3.2-5.2); CALCIUM LEVEL 8.9 MG/DL (8.3-10.6); CREATININE FOR GFR 2.27 MG/DL (0.70-1.30); DIGOXIN LEVEL 1.6 NG/ML (0.8-2.0); GLOMERULAR FILTRATION RATE 30.9 (>49); PHOSPHORUS LEVEL 4.7 MG/DL (2.4-5.1); POTASSIUM SERUM 5.2 MMOL/L (3.5-5.1)
[2023-11-10] MEDS: METOPROLOL TART 25 MG TABLET PO SCH ×2 (09:00→21:00)
[2023-11-10] MEDS: APIXABAN 2.5 MG TAB (ELIQUIS) PO SCH ×2 (09:21→21:54)
[2023-11-10] MEDS: [UNRECOGNIZED DRUG - OTHER] PO SCH ×2 (09:21→21:54)
[2023-11-10] MEDS: ASPIRIN 81MG CHEW TABLET PO SCH (09:21)
[2023-11-10] MEDS: MYCOPHENOLATE 200 MG/ML PO SCH ×2 (09:21→21:54)
[2023-11-10] MEDS: MULTIVITAMINS/MINERALS THERAP 1 TAB PO SCH (09:21)
[2023-11-10] MEDS: predniSONE 5 MG TAB PO SCH (09:21)
[2023-11-10] MEDS: DIGOXIN 0.0625MG PER 1/2TABLET PO SCH (09:21)
[2023-11-10] MEDS: PATIROMER SORBITEX CALCIUM 8.4 GM POWDER PACKET (VELTASSA) PO SCH (12:15)
[2023-11-10 14:00] VITALS: BP 112/69; TEMP 97.9; O2SAT 94
[2023-11-10 20:15] VITALS: BP 92/42; TEMP 97.7; O2SAT 97
[2023-11-10] MEDS: TAMSULOSIN 0.4 MG CAP PO SCH (21:54)
[2023-11-11 06:00] VITALS: BP 134/59; TEMP 98.1; O2SAT 97
[2023-11-11] MEDS: LEVOTHYROXINE 100MCG (0.1MG) 5ML SDV PF (SOLUTION FORM) IV SCH (06:11)
[2023-11-11 07:04] LABS: HEMATOCRIT 26.2 % (42.0-52.0); HEMOGLOBIN 8.3 g/dl (13.5-17.5); MEAN CORPUSCULAR HEMOGLOBIN 34.3 pg (27.0-33.0); MEAN CORPUSCULAR HGB CONC 31.7 g/dl (32.0-36.5); MEAN CORPUSCULAR VOLUME 108.3 fl (80.0-96.0); PLATELET COUNT, AUTOMATED 305 10^3/uL (150-450); RED BLOOD COUNT 2.42 10^6/uL (4.30-6.10); WHITE BLOOD COUNT 4.5 10^3/uL (4.0-10.0)
[2023-11-11 07:36] LABS: ALBUMIN 2.3 G/DL (3.2-5.2); CALCIUM LEVEL 9.4 MG/DL (8.3-10.6); CREATININE FOR GFR 2.05 MG/DL (0.70-1.30); DIGOXIN LEVEL 1.6 NG/ML (0.8-2.0); GLOMERULAR FILTRATION RATE 34.8 (>49); PHOSPHORUS LEVEL 4.3 MG/DL (2.4-5.1); POTASSIUM SERUM 5.1 MMOL/L (3.5-5.1)
[2023-11-11] MEDS: ASPIRIN 81MG CHEW TABLET PO SCH (08:15)
[2023-11-11] MEDS: APIXABAN 2.5 MG TAB (ELIQUIS) PO SCH ×2 (08:16→19:53)
[2023-11-11] MEDS: MULTIVITAMINS/MINERALS THERAP 1 TAB PO SCH (08:16)
[2023-11-11] MEDS: DIGOXIN 0.0625MG PER 1/2TABLET PO SCH (08:16)
[2023-11-11] MEDS: METOPROLOL TART 25 MG TABLET PO SCH ×2 (08:17→19:54)
[2023-11-11] MEDS: [UNRECOGNIZED DRUG - OTHER] PO SCH ×2 (08:17→19:53)
[2023-11-11] MEDS: MYCOPHENOLATE 200 MG/ML PO SCH ×2 (08:17→19:53)
[2023-11-11] MEDS: predniSONE 5 MG TAB PO SCH (08:17)
[2023-11-11] MEDS: PATIROMER SORBITEX CALCIUM 8.4 GM POWDER PACKET (VELTASSA) PO SCH (12:52)
[2023-11-11] MEDS: ACETAMINOPHEN TAB 650MG DOSE (2X325MG) PO PRN ×2 (12:52→23:55)
[2023-11-11 14:00] VITALS: BP 122/70; TEMP 98.6; O2SAT 98
[2023-11-11] MEDS: TAMSULOSIN 0.4 MG CAP PO SCH (19:53)
[2023-11-12] MEDS: LEVOTHYROXINE 100MCG (0.1MG) 5ML SDV PF (SOLUTION FORM) IV SCH (05:13)
[2023-11-12 05:33] VITALS: BP 123/67; TEMP 97.7; O2SAT 85
[2023-11-12 06:29] LABS: HEMATOCRIT 27.1 % (42.0-52.0); HEMOGLOBIN 8.3 g/dl (13.5-17.5); MEAN CORPUSCULAR HEMOGLOBIN 34.6 pg (27.0-33.0); MEAN CORPUSCULAR HGB CONC 30.6 g/dl (32.0-36.5); MEAN CORPUSCULAR VOLUME 112.9 fl (80.0-96.0); PLATELET COUNT, AUTOMATED 237 10^3/uL (150-450); WHITE BLOOD COUNT 3.8 10^3/uL (4.0-10.0)
[2023-11-12 06:43] LABS: ALBUMIN 2.2 G/DL (3.2-5.2); CALCIUM LEVEL 9.6 MG/DL (8.3-10.6); CREATININE FOR GFR 1.98 MG/DL (0.70-1.30); DIGOXIN LEVEL 1.7 NG/ML (0.8-2.0); GLOMERULAR FILTRATION RATE 36.2 (>49); PHOSPHORUS LEVEL 4.1 MG/DL (2.4-5.1); POTASSIUM SERUM 5.2 MMOL/L (3.5-5.1)
[2023-11-12] MEDS: [UNRECOGNIZED DRUG - OTHER] PO SCH ×2 (08:50→21:58)
[2023-11-12] MEDS: MYCOPHENOLATE 200 MG/ML PO SCH ×2 (08:50→21:58)
[2023-11-12] MEDS: ACETAMINOPHEN TAB 650MG DOSE (2X325MG) PO PRN ×2 (08:51→21:58)
[2023-11-12] MEDS: predniSONE 5 MG TAB PO SCH (08:52)
[2023-11-12] MEDS: ASPIRIN 81MG CHEW TABLET PO SCH (08:53)
[2023-11-12] MEDS: DIGOXIN 0.0625MG PER 1/2TABLET PO SCH (08:53)
[2023-11-12] MEDS: APIXABAN 2.5 MG TAB (ELIQUIS) PO SCH ×2 (08:54→21:58)
[2023-11-12] MEDS: MULTIVITAMINS/MINERALS THERAP 1 TAB PO SCH (08:54)
[2023-11-12] MEDS: METOPROLOL TART 25 MG TABLET PO SCH ×3 (08:54→21:15)
[2023-11-12] MEDS: PATIROMER SORBITEX CALCIUM 8.4 GM POWDER PACKET (VELTASSA) PO SCH (12:00)
[2023-11-12 21:13] VITALS: BP 82/58; TEMP 96.6; O2SAT 92
[2023-11-12 21:15] VITALS: BP 100/52
[2023-11-12] MEDS: TAMSULOSIN 0.4 MG CAP PO SCH (21:58)
[2023-11-13 02:19] VITALS: BP 105/56; TEMP 97.8; O2SAT 98
[2023-11-13 04:38] VITALS: BP 110/58; TEMP 97.9; O2SAT 95
[2023-11-13] MEDS: LEVOTHYROXINE 100MCG (0.1MG) 5ML SDV PF (SOLUTION FORM) IV SCH (06:23)
[2023-11-13] MEDS: PERCOCET 5MG/325MG TAB PO PRN ×3 (06:24→20:41)
[2023-11-13] MEDS: METOPROLOL TART 25 MG TABLET PO SCH (09:00)
[2023-11-13] MEDS: APIXABAN 2.5 MG TAB (ELIQUIS) PO SCH (09:00)
[2023-11-13] MEDS: MULTIVITAMINS/MINERALS THERAP 1 TAB PO SCH (09:00)
[2023-11-13] MEDS: ASPIRIN 81MG CHEW TABLET PO SCH (09:00)
[2023-11-13] MEDS: DIGOXIN 0.0625MG PER 1/2TABLET PO SCH (09:00)
[2023-11-13] MEDS: [UNRECOGNIZED DRUG - OTHER] PO SCH ×2 (09:00→20:41)
[2023-11-13] MEDS: MYCOPHENOLATE 200 MG/ML PO SCH ×2 (09:00→20:41)
[2023-11-13] MEDS: predniSONE 5 MG TAB PO SCH (09:00)
[2023-11-13] MEDS: PATIROMER SORBITEX CALCIUM 8.4 GM POWDER PACKET (VELTASSA) PO SCH (11:43)
[2023-11-13 14:00] VITALS: BP 106/58; TEMP 97.9; O2SAT 98
[2023-11-13] MEDS ORDERED: HYOSCYAMINE SULFATE 0.125 MG SUBL TABLET PO PRN (15:40)
[2023-11-13] MEDS ORDERED: ONDANSETRON 4MG ORAL DISINTEGRATING TAB PO PRN (15:40)
[2023-11-13] MEDS ORDERED: LORazepam 1 MG TAB PO PRN (15:40)
[2023-11-13] MEDS: MORPHINE 10MG/0.5ML ORAL CONCENTRATE SOLUTION U/D SL PRN (18:10)
[2023-11-14] MEDS: MORPHINE 10MG/0.5ML ORAL CONCENTRATE SOLUTION U/D SL PRN ×4 (00:39→12:03)
[2023-11-14] MEDS: predniSONE 5 MG TAB PO SCH (08:34)
[2023-11-14] MEDS ORDERED: TACROLIMUS 1MG CAP PO SCH (09:00)
[2023-11-14] MEDS ORDERED: ATIV1TAB10 PO (10:18)
[2023-11-14] MEDS ORDERED: MORP1SOL5 PO (10:18)
[2023-11-14] MEDS ORDERED: ONDA4TAB6 PO (10:18)
[2023-11-14] MEDS ORDERED: HYOS125TA PO (10:18)
[2023-11-14] MEDS ORDERED: PROG1CAP11 PO (10:18)
[2023-11-14] MEDS: MYCOPHENOLATE 200 MG/ML PO SCH (12:03)
[2023-11-14] MEDS: [UNRECOGNIZED DRUG - OTHER] PO SCH (12:03)
== END 2023-11-14 12:31 | disposition hospice, home (50) | DRG 643 ==
LOC: EDBD 07:30 → M ED 07:30 → EEVIPCON 10:47 → M ED INP 10:47 → M ICU 10-30 05:32 → M PCU 10-31 18:30 → M MSPAV 11-06 07:49
PROVIDERS: ADMIT Internal Medicine; ATTEND Student in an Organized Health Care Education/Training Program
PROC: B246ZZZ Ultrasonography of Right and Left Heart (ICD-10-PCS; principal; 2023-10-30)
DX: E89.0 Postprocedural hypothyroidism (principal); I50.33 Acute on chronic diastolic (congestive) heart failure; Z94.0 Kidney transplant status; N17.9 Acute kidney failure, unspecified; I13.0 Hypertensive heart and chronic kidney disease with heart failure and stage 1 through stage 4 chronic kidney disease, or unspecified chronic kidney disease; I87.1 Compression of vein; G47.00 Insomnia, unspecified; I35.0 Nonrheumatic aortic (valve) stenosis; K21.9 Gastro-esophageal reflux disease without esophagitis; I35.2 Nonrheumatic aortic (valve) stenosis with insufficiency; R49.0 Dysphonia; Z51.5 Encounter for palliative care; Z66 Do not resuscitate; N18.32 Chronic kidney disease, stage 3b; I77.1 Stricture of artery; I48.91 Unspecified atrial fibrillation; D63.1 Anemia in chronic kidney disease; E88.09 Other disorders of plasma-protein metabolism, not elsewhere classified; M54.50 Low back pain, unspecified; G89.29 Other chronic pain; E87.5 Hyperkalemia; R33.9 Retention of urine, unspecified; R00.0 Tachycardia, unspecified; Z98.42 Cataract extraction status, left eye; Z85.810 Personal history of malignant neoplasm of tongue; Z96.643 Presence of artificial hip joint, bilateral; Z98.41 Cataract extraction status, right eye; Z85.828 Personal history of other malignant neoplasm of skin; Z79.82 Long term (current) use of aspirin; Z95.820 Peripheral vascular angioplasty status with implants and grafts; Z88.8 Allergy status to other drugs, medicaments and biological substances; Z91.148 Patient's other noncompliance with medication regimen for other reason; Z79.890 Hormone replacement therapy; Z79.899 Other long term (current) drug therapy; Z79.52 Long term (current) use of systemic steroids; Z87.891 Personal history of nicotine dependence